=== PATIENT | female | born 1945 | race Caucasian/White ===

== ENCOUNTER → 2017-12-26 10:50 | Outpatient (CLI) | payer MEDICARE, SELFPAY ==
[2017-12-26 12:06] VITALS: PULSE 78; PULSE 79; PULSE 87; PULSE 89; PULSE 91; PULSE 92; PULSE 94; O2SAT 97; O2SAT 98; O2SAT 99
--- NOTE | 2017-12-26 14:36 | WT_ITS ---
PSN 6 Minute Walk Test - 6 Minute Walk Test 6 Minute Walk Test: 6 Minute Walk Test PSN:6-Minute Walk Test Start: 12/26/17 12: 06 Freq: Status: Active Protocol: [id number] Document 12/26/17 12:06 FR (Rec: 12/26/17 12:11 FR [id number]) 6 Minute Walk Test Date Performed 12/26/17 Time Performed 11:00 Height 5 ft 3 in Weight: 140 lb Weight in Pounds 140.[address]: Nithya Aldana Assistive device used: None Pre-test Oxygen Delivery Method Room Air Pulse Ox (%) 97 Pulse Rate (60-100 beats/min) 78 Dyspnea Arnoldo Scale (0-10) 0 Exertion Arnoldo Scale (6-20) 6 1st minute Oxygen Delivery Method Room Air Pulse Ox (%) 97 Pulse Rate (60-100 beats/min) 89 2nd minute Oxygen Delivery Method Room Air Pulse Ox (%) 97 Pulse Rate (60-100 beats/min) 89 3rd minute Oxygen Delivery Method Room Air Pulse Ox (%) 97 Pulse Rate (60-100 beats/min) 87 4th minute Oxygen Delivery Method Room Air Pulse Ox (%) 97 Pulse Rate (60-100 beats/min) 92 5th minute Oxygen Delivery Method Room Air Pulse Ox (%) 98 Pulse Rate (60-100 beats/min) 91 6th minute Oxygen Delivery Method Room Air Pulse Ox (%) 97 Pulse Rate (60-100 beats/min) 94 Dyspnea Arnoldo Scale (0-10) 0 Exertion Arnoldo Scale (6-20) 6 Post-test Oxygen Delivery Method Room Air Pulse Ox (%) 99 Pulse Rate (60-100 beats/min) 79 Full Laps Walked 20 Partial Lap, Number of Tiles Walked 15 Total Distance Walked (ft) 1195 - Interpretation Interpretation: The patient ambulated 1195 feet over the course of 6 minutes beginning on room air without assistive devices or breaks. Pretesting oxygen saturation was noted to be 97% on room air. With ambulation, the crystal oxygen saturation was 97%. There was no significant exertional oxygen desaturation. - Recommendations Recommendations: There is no indication for the use of supplemental oxygen at this time.
== END ==
PROVIDERS: Family Provider Family Medicine; PCP Family Medicine; Visit Provider Nurse Practitioner Acute Care
DX: R06.00 Dyspnea, unspecified (principal)
CPT/HCPCS: 94618

== ENCOUNTER → 2017-12-30 12:50 | Outpatient (CLI) | payer MEDICARE, SELFPAY ==
--- NOTE | 2017-12-30 16:37 | PFTCOMP ---
COMPLETE PULMONARY FUNCTION TEST INTERPRETATION Brief HPI: Patient is a 72 year old female, currently under the care of myself, who presents to [facility] for complete pulmonary function tests secondary to diagnosis of dyspnea. Respiratory therapist reports good effort and reproducible results. Interpretation: Forced expiration spirometry shows no large airways obstructive ventilatory defect with an FEV1 of 83% predicted. There is no significant bronchodilator response by ATS criteria. Spirograms are of good quality and plateau normally. The respiratory flow volume loop shows a normal pattern. Lung volumes by body plethysmography show a normal total lung capacity at 4.08 L, 89% predicted. All other lung volumes are within normal limits. Diffusion capacity by carbon monoxide is normal at 64% predicted. The airway resistance is elevated. Compared to previous pulmonary function tests from 11/20/2016, there has been a significant improvement in air-trapping with hyperinflation. Impression: These pulmonary function tests are grossly within normal limits and show improvement in air trapping compared to previous.
--- NOTE | 2017-12-30 16:44 | PFTCOMP_ITS ---
COMPLETE PULMONARY FUNCTION TEST INTERPRETATION Brief HPI: Patient is a 72 year old female, currently under the care of myself, who presents to [facility] for complete pulmonary function tests secondary to diagnosis of dyspnea. Respiratory therapist reports good effort and reproducible results. Interpretation: Forced expiration spirometry shows no large airways obstructive ventilatory defect with an FEV1 of 83% predicted. There is no significant bronchodilator response by ATS criteria. Spirograms are of good quality and plateau normally. The respiratory flow volume loop shows a normal pattern. Lung volumes by body plethysmography show a normal total lung capacity at 4.08 L , 89% predicted. All other lung volumes are within normal limits. Diffusion capacity by carbon monoxide is normal at 64% predicted. The airway resistance is elevated. Compared to previous pulmonary function tests from 11/20/2016, there has been a significant improvement in air-trapping with hyperinflation. Impression: These pulmonary function tests are grossly within normal limits and show improvement in air trapping compared to previous.
== END ==
PROVIDERS: Family Provider Family Medicine; PCP Family Medicine; Visit Provider Nurse Practitioner Acute Care
DX: R06.00 Dyspnea, unspecified (principal)
CPT/HCPCS: 94060; 94726; 94729

== ENCOUNTER → 2018-01-23 11:55 | Outpatient (CLI) | payer MEDICARE, SELFPAY ==
[2018-01-23 15:43] LABS: AST(SGOT) 19 U/L (15-37); Alanine Aminotransfer ALT/SGPT 19 U/L (13-56); Albumin, Serum 3.9 g/dL (3.2-5.0); Alkaline Phosphatase 130 U/L (45-117); Bilirubin, Direct 0.11 mg/dL (0.00-0.30); Cholesterol 192 mg/dL (200); High Density Lipoprotein 40 mg/dL; Protein, Total 7.9 g/dL (6.4-8.2); Triglycerides 228 mg/dL; Very Low Density Lipoprotein 46 mg/dL (5-40)
== END ==
PROVIDERS: Family Provider Family Medicine; PCP Family Medicine; Visit Provider Internal Medicine Cardiovascular Disease
DX: I25.810 Atherosclerosis of coronary artery bypass graft(s) without angina pectoris (principal); E78.2 Mixed hyperlipidemia; E78.5 Hyperlipidemia, unspecified; Z79.899 Other long term (current) drug therapy
CPT/HCPCS: 36415; 80061; 80076

== ENCOUNTER → 2019-02-09 | Outpatient (CLI) | payer MEDICARE, SELFPAY ==
[2019-02-09 15:32] VITALS: BMI 27.1
[2019-02-09 17:52] LABS: Absolute Lymphocyte Count 3.14 X10^3/uL (0.83-4.51); Absolute Neutrophil Count 4.4 X10^3/uL (2.0-7.7); Basophil# 0.03 X10^3/uL; Basophil% 0.4 % (0-1); Eosinophil# 0.11 X10^3/uL; Eosinophils% 1.4 % (0-5); Hematocrit 38.3 % (37-47); Hemoglobin 13.1 g/dL (12.0-15.0); Lymphocyte # 3.14 X10^3/ul (4.0); Lymphocyte % 38.9 % (19-41); Mean Corp Hgb Conc 34.2 g/dL (32-36); Mean Corpuscular Hgb 31.8 pg (27.0-32.0); Mean Platelet Vol. 10.1 fl (6.2-12.0); Monocyte# 0.39 X10^3/uL; Monocyte% 4.8 % (0-10); NRBC Flagged by Analyzer 0 % (0-5); Neutrophil % 54.4 % (47-70); Platelet Count 229 K/mm3 (150-450); RBC Distribution Width CV 12.6 % (11.6-14.6); RBC Distribution Width SD 42.8 fl (35.1-43.9); Red Blood Count 4.12 M/mm3 (4.2-5.4); White Blood Count 8.1 K/mm3 (4.4-11.0)
[2019-02-09 18:07] LABS: AST(SGOT) 17 U/L (15-37); Alanine Aminotransfer ALT/SGPT 16 U/L (13-56); Albumin, Serum 3.9 g/dL (3.2-5.0); Alkaline Phosphatase 124 U/L (45-117); Anion Gap 5 (5-15); BUN 11 mg/dL (7-18); BUN/Creat Ratio 11.7 RATIO (10-20); Bilirubin, Direct 0.15 mg/dL (0.00-0.30); Chloride 109 mmol/L (98-107); Cholesterol 151 mg/dL (200); Creatinine, Serum 0.94 mg/dL (0.55-1.02); EST Glomerular Filtration Rate 62 mL/min (>60); Est Glom Filt Rate - Afr Amer 76 mL/min (>60); Globulin 3.7 g/dL (2.2-4.2); Glucose 86 mg/dL (74-106); High Density Lipoprotein 36 mg/dL; Potassium 3.9 mmol/L (3.5-5.1); Protein, Total 7.6 g/dL (6.4-8.2); Sodium Level 140 mmol/L (136-145); Thyroid Stim Hormone (TSH) 2.18 uIU/mL (0.358-3.74); Triglycerides 185 mg/dL; Very Low Density Lipoprotein 37 mg/dL (5-40)
== END | disposition home or self-care (01) ==
LOC: LAB 15:44
PROVIDERS: Family Provider Family Medicine; PCP Family Medicine; Referring Provider Physician Assistant Medical; Visit Provider Physician Assistant Medical
DX: I25.810 Atherosclerosis of coronary artery bypass graft(s) without angina pectoris (principal); I25.5 Ischemic cardiomyopathy; I50.22 Chronic systolic (congestive) heart failure
CPT/HCPCS: 36415; 80048; 80061; 80076; 84443; 85025

== ENCOUNTER → 2020-05-10 09:15 | Outpatient (CLI) | payer MEDICARE, SELFPAY ==
[2020-05-10 08:45] VITALS: BMI 27.6
[2020-05-10 10:40] LABS: AST(SGOT) 19 U/L (15-37); Alanine Aminotransfer ALT/SGPT 18 U/L (13-56); Albumin, Serum 3.7 g/dL (3.2-5.0); Alkaline Phosphatase 122 U/L (45-117); Bilirubin, Direct 0.09 mg/dL (0.00-0.30); Cholesterol 148 mg/dL (200); Globulin 3.5 g/dL (2.2-4.2); High Density Lipoprotein 34 mg/dL; Protein, Total 7.2 g/dL (6.4-8.2); Triglycerides 170 mg/dL; Very Low Density Lipoprotein 34 mg/dL (5-40)
== END ==
PROVIDERS: PCP Family Medicine; Referring Provider Physician Assistant Medical; Visit Provider Physician Assistant Medical
DX: E78.5 Hyperlipidemia, unspecified (principal); E78.00 Pure hypercholesterolemia, unspecified
CPT/HCPCS: 36415; 80061; 80076

== ENCOUNTER → 2020-05-23 06:15 | Outpatient (CLI) | payer MEDICARE, SELFPAY ==
[2020-05-10 08:45] VITALS: BMI 27.6
--- NOTE | 2020-05-23 06:16 | ECHOD_ITS ---
Reason For Study: CAD Procedure This was a 2D Doppler, Color Flow transthoracic echocardiogram. Exam performed in department. Left Ventricle Normal LV size. The estimated ejection fraction is 40 %. Mild to moderate segmental systolic dysfunction (see wall motion). Stage 1 diastolic dysfunction. Anterio-Basal: Normal. Lateral-Basal: Normal. Posterior-Basal: Normal. Infero-Basal: Akinetic. Basal inferoseptal: Severely Hypokinetic. Basal anteroseptal: Mildly hypokinetic. Mid-Anterior : Hypokinetic. Mid-Lateral : Normal. Mid- Posterior: Hypokinetic. Mid-Inferior: Hypokinetic. Mid-inferoseptal : Mildly hypokinetic. Mid- anteroseptal : Hypokinetic. [place] : Akinetic. Right Ventricle Normal RV size. Normal systolic function. Atria Normal left atrium. Normal right atrium. Mitral Valve Normal mitral valve. Tricuspid Valve Normal tricuspid valve. Mild (1+) tricuspid valve insufficiency. Pulmonary artery systolic pressure is 28 mmHg. Aortic Valve Trisinus/trileaflet aortic valve. Mild focal aortic valve calcification. Pericardium/Pleural No pericardial effusion. MMode/2D Measurements & Calculations LVIDd: 4.8 cm IVSd: 0.99 cm Ao root diam: 2.8 cm LVIDs: 3.0 cm LVPWd: 1.1 cm RVDd: 2.7 cm FS: 36.4 % LAV(MOD-bp): 51.7 ml SV(MOD-sp4): 22.3 ml LVAd ap4: 24.4 cm2 LAV(MOD-bp) Indexed: 30.5 ml/m2 EDV(MOD-sp4): 68.3 ml LAV(MOD-sp2): 46.0 ml EDV(sp4-el): 70.5 ml LAV(MOD-sp4): 49.7 ml LVAs ap4: 19.0 cm2 ESV(MOD-sp4): 46.0 ml ESV(sp4-el): 48.0 ml EF(MOD-sp4): 32.6 % EF(sp4-el): 31.8 % SV(sp4-el): 22.4 ml LA dimension(2D): 3.9 cm LA A4 area: 18.4 cm2 RA A4 area: 14.8 cm2 Doppler Measurements & Calculations MV E max jatinder: 75.1 cm/sec Lat Peak E' Jatinder: 7.7 cm/sec Med Peak E' Jatinder: 4.3 cm/sec MV A max jatinder: 86.9 cm/sec E/E' lat: 9.8 E/E' med: 17.6 MV E/A: 0.86 Ao V2 max: 155.5 cm/sec LV V1 max: 106.2 cm/sec PA V2 max: 115.4 cm/sec Ao max P.7 mmHg LV V1 max P.5 mmHg TR max jatinder: 242.9 cm/sec TR max P.0 mmHg Interpretation Summary Normal LV size. The estimated ejection fraction is 40 %. Mild to moderate segmental systolic dysfunction (see wall motion). Stage 1 diastolic dysfunction. Compared to previous study, the left ventricular systolic function has improved.. Ordering Physician: Savanah Jade/Yuniel Tsai Referring Physician: Hoang Marquez M.D. Performed By: Criss Cloud RDCS
--- NOTE | 2020-05-23 15:36 | STRESSREP ---
Stress Test Report Pharmacologic myocardial perfusion stress test. 74-year-old lady with a history of coronary artery bypass surgery with a VERNON to the LAD saphenous vein graft to the right coronary artery and saphenous vein graft to circumflex artery. Stress protocol: Resting EKG demonstrates normal sinus rhythm with a rate of 60 bpm normal intervals are noted resting blood pressure is 150/72 mmHg. 0.4 mg of regadenoson was infused per usual protocol followed by rapid intravenous saline flush injection continuous EKG monitoring was performed. Patient maintained sinus rhythm throughout the recording. At rest nonspecific ST-T wave changes were noted with no meet the criteria for ischemia. The resting blood pressure was 150/72 with a peak blood pressure being the same. No clinical angina was noted. Myocardial perfusion protocol. 10.8 mCi of technetium 99m sestamibi was injected at rest. 0.4 mg of regadenoson was infused per usual protocol. At peak infusion 32.5 mCi of technetium 99m sestamibi was injected stress images were obtained stress and rest images were reconstructed and compared in the short axis vertical long horizontal long axis. Gated images were not obtained Perfusion SPECT analysis: Review of the stress images demonstrate a normal cardiac silhouette size. There is a defect noted involving the distal septum and apex as well as the distal lateral wall. This is present on the stress and rest images to a similar extent. There is moderate reduction noted in the mid inferior wall on the stress images with mild improvement on the resting images suggesting a mild amount of inferior ischemia. Conclusion: Mildly abnormal pharmacologic myocardial perfusion stress test with evidence of mid inferior ischemia. Previous distal apical, septum and apical lateral infarct noted.
== END ==
PROVIDERS: PCP Family Medicine; Referring Provider Physician Assistant Medical; Visit Provider Physician Assistant Medical
DX: Z01.810 Encounter for preprocedural cardiovascular examination (principal); Z95.1 Presence of aortocoronary bypass graft
CPT/HCPCS: 78452; 93017; 93306; A9500; A4216; J2785

== ENCOUNTER 2020-06-27 07:51 | Day surgery (SDC) | payer MEDICARE, SELFPAY ==
[2020-05-10 08:45] VITALS: BMI 27.6
--- NOTE | 2020-05-31 12:03 | RAD_ITS ---
HISTORY: Heart cath coming up , abnormal stress test with CP ADDITIONAL HISTORY: None provided. COMPARISON: 09/27/2016 EXAMINATION/TECHNIQUE: XR Chest 2 Views Number of images including paperwork: 2 FINDINGS: LUNGS AND PLEURA: No consolidation, mass or pleural effusion. CARDIAC SILHOUETTE: Unremarkable. MEDIASTINUM AND DUANE: Aortic calcification and tortuosity. UPPER ABDOMEN: Unremarkable. SKELETON AND SOFT TISSUES: No acute findings. Degenerative changes. OTHER DEVICES AND HARDWARE: Biventricular ICD a left-sided generator. Sternal wires and surgical clips. RAD/Chest PA and Lateral IMPRESSION: No acute cardiopulmonary abnormality. at 0411 Reported and signed by: Anna Alarcon MD Electronically Signed: Anna Alarcon MD at 4:11 EST Tel , Service support ,
[2020-05-31 12:31] LABS: Absolute Lymphocyte Count 2.98 X10^3/uL (0.83-4.51); Absolute Neutrophil Count 4.3 X10^3/uL (2.0-7.7); Basophil# 0.03 X10^3/uL; Basophil% 0.4 % (0-1); Eosinophil# 0.13 X10^3/uL; Eosinophils% 1.7 % (0-5); Hematocrit 39.8 % (37-47); Hemoglobin 13.8 g/dL (12.0-15.0); Lymphocyte # 2.98 X10^3/ul (4.0); Lymphocyte % 38.3 % (19-41); Mean Corp Hgb Conc 34.7 g/dL (32-36); Mean Corpuscular Hgb 31.4 pg (27.0-32.0); Mean Corpuscular Volume 90.5 fL (81-99); Mean Platelet Vol. 10.5 fl (6.2-12.0); Monocyte# 0.33 X10^3/uL; Monocyte% 4.2 % (0-10); NRBC Flagged by Analyzer 0 % (0-5); Neutrophil % 55.3 % (47-70); Platelet Count 247 K/mm3 (150-450); RBC Distribution Width CV 12.5 % (11.6-14.6); RBC Distribution Width SD 41.4 fl (35.1-43.9); White Blood Count 7.8 K/mm3 (4.4-11.0)
[2020-05-31 12:40] LABS: International Normalized Ratio 1.1; Prothrombin Time (Protime)PT. 13.2 SECONDS (11.7-14.9)
[2020-05-31 12:58] LABS: Anion Gap 7 (5-15); BUN 11 mg/dL (7-18); BUN/Creat Ratio 13.2 RATIO (10-20); Chloride 108 mmol/L (98-107); Creatinine, Serum 0.84 mg/dL (0.55-1.02); EST Glomerular Filtration Rate 71 mL/min (>60); Est Glom Filt Rate - Afr Amer 86 mL/min (>60); Glucose 99 mg/dL (74-106); Potassium 3.4 mmol/L (3.5-5.1); Sodium Level 142 mmol/L (136-145)
--- NOTE | 2020-06-01 07:33 | HP_ITS ---
[facility] History of Present Illness Details: ANA JIMENEZ, is a 74 F who presents to the office today for a cardiovascular outpatient follow-up. Patient has a history of coronary artery disease status post bypass surgery in 1996 with an VERNON to the LAD, SVG to RCA, and SVG to LCx. She had subsequent angioplasty and stenting to proximal and distal RCA in 2011. She also has a history of ischemic cardiomyopathy, status post biventricular ICD implantation, hyperlipidemia, and tobacco abuse. From a cardiac standpoint, patient is doing well. She does not have any chest discomfort/heaviness/tightness. She does not have any worsening symptoms of shortness of breath. She does not have any orthopnea. She denies PND. She does not have any symptoms of congestive heart failure. She does not have any palpitations that she is aware of. She does not have any lightheadedness or dizziness. She does not have any near-syncope or syncope. She does not have any lower extremity edema. She does not have any symptoms of claudication. Pt did have cataract surgery. Intake Vital Signs 05/10/20 Height 5 ft 2 in 05/10/20 Weight: 151 lb 05/10/20 BMI 27.6 05/10/20 BP 140/70 H 05/10/20 Pulse 60 Intake Visit Reasons: 6 M FU Allergies No Known Allergies Allergy (Verified 05/10/20 08:45) Medications Aspirin [Aspirin, Baby] 81 mg PO DAILY@0800 09/27/16 [History Confirmed 05/10/20] loratadine 10 mg capsule 10 mg PO DAILY 07/25/18 [History Confirmed 05/10/20] nitroglycerin 0.4 mg sublingual tablet 0.4 mg SUBLINGUAL Q5-15M PRN #25 tab 08/27/19 [Rx Confirmed 05/10/20] atorvastatin 80 mg tablet 80 mg PO QHS #90 tab 05/10/20 [Rx Confirmed 05/10/20] carvedilol 12.5 mg tablet 12.5 mg PO BID #180 tab 05/10/20 [Rx Confirmed 05/10/20] clopidogrel 75 mg tablet 75 mg PO DAILY #90 tab 05/10/20 [Rx Confirmed 05/10/20] furosemide 40 mg tablet 40 mg PO QAM #90 tab 05/10/20 [Rx Confirmed 05/10/20] lisinopril 20 mg tablet 20 mg PO BID #180 tab 05/10/20 [Rx Confirmed 05/10/20] [facility] Medical History Ischemic cardiomyopathy (Chronic) Nonrheumatic tricuspid (valve) insufficiency (Chronic) Nonrheumatic aortic (valve) stenosis (Chronic) Chronic systolic congestive heart failure (Chronic) Presence of cardiac defibrillator (Chronic) Atherosclerosis of coronary artery 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 (Chronic) Long-term use of high-risk medication (Chronic) Syncope and collapse (Resolved) Hyperlipemia (Chronic) HTN (hypertension) (Chronic) Atrioventricular block (Chronic) Bronchiectasis (Chronic) Ischemic cardiomyopathy (Chronic) Old myocardial infarction (Chronic) Tobacco abuse (Chronic) AV block (Inactive) Atherosclerotic heart disease of [place] coronary artery without angina pectoris (Inactive) Bronchiectasis (Inactive) CHF (congestive heart failure) (Inactive) History of sinus bradycardia (Inactive) History of syncope (Inactive) Hx of myocardial infarction (Inactive) Hypercholesteremia (Inactive) Hypokalemia (Inactive) Ischemic cardiomyopathy (Inactive) 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) Nonrheumatic aortic (valve) stenosis (Inactive) Nonrheumatic mitral (valve) prolapse (Inactive) Psoriasis (Inactive) Surgical History Aortocoronary bypass status (Chronic ~1996) PCD and drug-eluting stents to prox RCA, distal RCA (Resolved ~03/06/12) Cardiac defibrillator in place (Chronic ~03/07/12) H/O tubal ligation (Resolved) History of left heart catheterization (Resolved) Postsurgical percutaneous transluminal coronary angioplasty (PTCA) status (Resolved ~03/06/12) CABG VERNON graft LAD (Inactive) Hx of CABG (Inactive) Saphenous vein graft to CFX (Inactive) saphenous vein graft to RCA (Inactive) Family History Father CAD (coronary artery disease) Myocardial infarction Brother CAD (coronary artery disease) Myocardial infarction Mother Cancer Social History (Updated 05/10/20 @ 09:35 by Savanah LOCKWOOD, PA) Smoking Status: Current every day smoker second hand exposure: Yes alcohol intake: never substance use type: does not use caffeine: Yes Type: carbonated beverages what type of physical activity do you participate in: none seatbelt use: always do you feel safe at home: Yes ROS Const Const: Positive for fatigue; negative for weakness, fever(s) or headache(s) Eyes Eyes: Negative for blind spots, loss of peripheral vision or transient loss of vision ENT ENT: Negative for headache(s), dizziness, tinnitus or Nosebleed/epistaxis Cardio Chest Pain: No Palpitations: No Edema: None Muscle aches with walking: None Resp Respiratory: Negative for SOB with activity, SOB at rest, SOB orthopnea\SOB lying down or Cough GI GI: Negative nausea, vomiting, heartburn or vomiting blood/hematemesis : Negative for hematuria Musc Musc: Positive for muscle aches/ myalgia Neuro Neuro: Negative for dizziness, lightheadedness, near syncope, syncope, orthostatic symptoms, headache(s) or weakness Eric Hematologic/Lymphatic: Negative for easy bleeding Endo Endo: Positive for fatigue Cardiology Exam Const Appearance: cooperative, healthy appearing, comfortable and no acute distress Orientation: alert, awake and oriented x3 Head Head: normal to inspection Mouth: oral mucosae normal Teeth and gingiva: poor dentition Neck Neck: normal visual inspection and no JVD Carotids: normal carotid upstroke Chest Chest inspection: normal inspection of the chest, Pacemaker/ICD Yes left pectoral incision and normal respiratory effort Auscultation: Bilateral: Clear to Auscultation Cardio Rate: regular rate Rhythm: regular rhythm Heart sounds: S2 normal and murmur (LLSB systolic); negative rub or gallop Murmur: Grade 2/6 GI GI: normal to inspection Neuro General: alert, awake, oriented x3 and CN's II-XI intact bilaterally Skin Skin: no rashes or lesions noted Extremities Pulses: Normal: Right Radial Pulse, Left Radial Pulse, Diminished: Right Posterior Tibial Pulse, Left Posterior Tibial Pulse Lower Extremity Edema: None: Bilateral Psych Psychological: normal affect Assessment & Plan 1. Atherosclerosis of coronary artery bypass graft of [place] heart without angina pectoris I25.810 CABG x3 VERNON to LAD, SVG to RCA, SVG to LCX 1996; PTCA/ROBERTO to prox and distal RCA 03/06/12 Plan Stable, from a cardiac standpoint patient does not have any symptoms of angina. We recommend that they continue with current aggressive medical management and risk factor modification. It has been greater than 4 years since her last stress test, would like to re- evaluate this with a stress test. This will need to be a lexiscan due to her ICD. 2. Ischemic cardiomyopathy I25.5 S/P BI-V ICD; Plan Patient does not have any symptoms of congestive heart failure. Patient will continue with aggressive medical management. It has been greater than 4 years since she had this checked, would like to obtain and echo to re-evaluate and to see if we could optimize medications. 3. Essential hypertension I10 Plan Controlled on current medications, will not make any adjustments at this time. 4. Mixed hyperlipidemia E78.2 Plan Patient is overdue to have her lipids checked. It is okay to get nonfasting blood work today. Will adjust medications accordingly. 5. Presence of cardiac defibrillator Z95.810 Implanted @ [facility] 03/07/2012; Plan ICD is functioning appropriately. Pt has not had any discharges from their device, they will continue with regular scheduled ICD interrogations. 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 transplanted heart: [place] heart Ischemic cardiomyopathy I25.5 Essential hypertension I10 ??Hypertension type: essential hypertension Mixed hyperlipidemia E78.2 ??Hyperlipidemia type: mixed hyperlipidemia Presence of cardiac defibrillator Z95.810 Coding Level of Care Code Off vis,est,level 3 Diagnoses Atherosclerosis of coronary artery bypass graft of [place] heart without angina pectoris I25.810 ??[place] vs. transplanted heart: [place] heart Ischemic cardiomyopathy I25.5 Essential hypertension I10 ??Hypertension type: essential hypertension Mixed hyperlipidemia E78.2 ??Hyperlipidemia type: mixed hyperlipidemia Presence of cardiac defibrillator Z95.810 Supplemental Info Supplemental Information Echocardiogram from 07/13/15: Interpretation Summary Normal LV size. The estimated ejection fraction is 25 %. Moderately severe segmental systolic dysfunction (see wall motion). Mild (1+) tricuspid valve insufficiency. Bi-VICD evaluation from 03/11/18: Showed no VT/VF episodes and no MS episodes since last check on 08/16/2017. Presenting rhythm of AAI pacing at 60 ppm. Bi-Vpaced=45%, AP=95%, and estimated battery life of 2.4 years. Nuclear Stress test from 01/06/16: CONCLUSION: 1. Ischemic cardiomyopathy. 2. Pharmacologic myocardial perfusion stress test with no evidence of ischemia. 3. Previous anteroseptal, basal inferior, inferolateral infarct noted. No ischemia present. Labs LDL Cholesterol Pending 05/10/20 HDL Cholesterol Pending 05/10/20 Triglycerides Pending 05/10/20 VLDL Cholesterol Pending 05/10/20 Diagnostics Pacemaker Check 12/14/19
[2020-06-01 09:34] VITALS: BMI 27.6
--- NOTE | 2020-06-27 12:37 | CL.D_ITS ---
Patient Name: ANA JIMENEZ Study Date: 06/27/2020 Performing: Yuniel Tsai MD Ht: 61.81 inches 157 cm : 1945 Wt: 149.91 lbs 68 kg Age: 74 Gender: female BSA: 1.69 PROCEDURE(S) PERFORMED [id number]/COR/LV/CABG CLINICAL PROFILE AND INDICATIONS Indications: Other Heart Failure: NYHA Class: 2, Newly Diagnosed: No, Heart Failure Type: Systolic Stress/Imaging Date: 05/21/2020Stress Test with SPECT MPI: Positive Intermediate Risk CONCLUSIONS Known triple-vessel coronary artery disease with 2 out of 3 grafts occluded but patency of the [place] circumflex and right coronary artery system, and patent VERNON to the LAD. Left ventricular systolic dysfunction present. Implantable defibrillator present. We will continue medical therapy based on t he above. RECOMMENDATIONS Medical therapy DESCRIPTION OF PROCEDURE The patient arrived to the procedure lab. The risks and benefits of the procedure as well as a full d escription of our services here and current unavailability of surgical backup were fully explained to the patient and/or their significant other prior to the catheterization. The Timeout was completed, verifying the correct patient and procedure. The patient's procedural site was prepped and draped in the usual fashion. Local anesthetic was given subcutaneously to left radial region with Lidocaine 2%. Using a modified Seldinger technique, arterial access was obtained via the left femoral artery, a 6F r sheath was inserted. Left internal mammary artery graft to the LAD selective angiography was perfo rmed in multiple views using a 5 Fr. IM catheter. Left Coronary Artery selective angiography was perf ormed in multiple views using a 5 Fr. JL3.5 catheter. Right Coronary Artery selective angiography was then performed in multiple views using a 5 Fr. JR 4 catheter. Left Ventriculography was performed in VALENZUELA projection using a 5 Fr. Pigtail catheter. LV to AO pullback pressures were then rec orded.The arterial sheath was pulled and a TR Band was applied for hemostasis CORONARY ANGIOGRAPHY DOMINANCE: Right Dominant LEFT HEART ASSESSMENT Left Ventricular Ejection Fraction: by LV Gram 40 % Global Hypokinesis - Moderate Depressed Left Ventricular systolic function LEFT MAIN: Mild calcification, No significant disease noted LEFT ANTERIOR DESCENDING ARTERY: MID LAD: is occluded CIRCUMFLEX ARTERY: Mild luminal irregularities less than 30% RIGHT CORONARY ARTERY: Moderate luminal irregularities up to 50% GRAFTS: VERNON graft to the Mid LAD is patent Saphenous Vein graft to the RCA is totally occluded Saphenous Vein graft to the CIRC is totally occluded COMPLICATIONS No Complications PROCEDURE MEDICATIONS Versed 1 mg IV Fentanyl 50 mcg IV Oxygen: 2 L/min via nasal cannula Heparin given IA 06/27/2020 12:03:24 Verapamil 2.5mg, Ntg 100mcgs, 2000 units of Heparin given IA 06/27/2020 12:03:24 SUMMARY OF HEMODYNAMIC DATA Time AIR REST ECG 08:42:04 AO 98/58 (74) SA 12:03:21 LV 145/11, 19 12:13:45 LV 147/11, 20 12:13:52 LV 127/10, 23 12:15:15 LV 123/9, 21 12:15:21 LVp 133/11, 24 12:15:34 AOp 136/61 (89) 12:15:39 Signed By Yuniel Tsai MD On 06/27/2020 12:36:13 Yuniel Tsai MD
== END 2020-06-27 14:00 | disposition home or self-care (01) ==
LOC: CLSP 07:52
PROVIDERS: Physician Assistant Medical; PCP Family Medicine; Referring Provider Internal Medicine Cardiovascular Disease; Visit Provider Internal Medicine Cardiovascular Disease
DX: I25.810 Atherosclerosis of coronary artery bypass graft(s) without angina pectoris (principal); I25.5 Ischemic cardiomyopathy; I11.0 Hypertensive heart disease with heart failure; I50.22 Chronic systolic (congestive) heart failure; I35.0 Nonrheumatic aortic (valve) stenosis; I25.2 Old myocardial infarction; E78.2 Mixed hyperlipidemia; Z79.82 Long term (current) use of aspirin; Z79.02 Long term (current) use of antithrombotics/antiplatelets; Z79.899 Other long term (current) drug therapy; F17.200 Nicotine dependence, unspecified, uncomplicated
CPT/HCPCS: 36415; 71046; 80048; 85025; 85610; 93459; 99152; 99153; C1894; J7040; Q9967; C1769

== ENCOUNTER → 2020-07-28 09:22 | Outpatient (CLI) | payer MEDICARE, SELFPAY ==
[2020-07-19 14:14] VITALS: BMI 25.9
== END ==
PROVIDERS: PCP Family Medicine; Referring Provider Nurse Practitioner Family; Visit Provider Nurse Practitioner Family
DX: Z20.822 Contact with and (suspected) exposure to COVID-19 (principal)
CPT/HCPCS: 87635; C9803; U0005; U0003

== ENCOUNTER 2020-08-04 09:28 | Day surgery (SDC) | payer MEDICARE, SELFPAY ==
[2020-06-01 09:34] VITALS: BMI 27.6
[2020-07-19 14:14] VITALS: BMI 25.9
[2020-07-19 14:54] LABS: Mucous, Urine 0 SEEN /hpf (<or=2+); Red Blood Cells-Urine 0 SEEN /hpf (0-5)
[2020-07-19 16:39] LABS: Color, Urine Yellow (Yellow); Glucose, Dipstick Normal (Normal); Ketone-Dipstick Negative (Negative); Leukocyte Esterase-Dipstick 500 /ul (Negative); Nitrite-Dipstick Negative (Negative); Occult Blood-Urine 50 /ul (Negative); Protein-Dipstick Negative (Negative); Specific Gravity, Urine 1.015 (1.002-1.030); Urine Bilirubin Dipstick Negative (Negative); Urine Clarity Sl. Cloudy (Clear); Urine Urobilinogen Normal (Normal)
[2020-07-19 16:40] LABS: Hematocrit 38.6 % (37-47); Hemoglobin 13.1 g/dL (12.0-15.0); Mean Corp Hgb Conc 33.9 g/dL (32-36); Mean Corpuscular Hgb 30.8 pg (27.0-32.0); Mean Corpuscular Volume 90.6 fL (81-99); Mean Platelet Vol. 10.7 fl (6.2-12.0); Platelet Count 267 K/mm3 (150-450); RBC Distribution Width CV 13.2 % (11.6-14.6); RBC Distribution Width SD 43.5 fl (35.1-43.9); Red Blood Count 4.26 M/mm3 (4.2-5.4); White Blood Count 7.3 K/mm3 (4.4-11.0)
[2020-07-19 16:45] LABS: Bacteria 2+ /hpf (None Seen); Hyaline Cast 0-5 SEEN /lpf (0-5); Squamous Epithelial Cells - UA 10-25 SEEN /hpf (5-10); White Blood Cells 10-25 SEEN /hpf (0-5)
[2020-07-19 16:47] LABS: International Normalized Ratio 1.1; Prothrombin Time (Protime)PT. 13.6 SECONDS (11.7-14.9)
[2020-07-19 17:11] LABS: Anion Gap 6 (5-15); BUN 7 mg/dL (7-18); BUN/Creat Ratio 6.7 RATIO (10-20); Calcium,Total 8.8 mg/dL (8.5-10.1); Chloride 109 mmol/L (98-107); Creatinine, Serum 1.05 mg/dL (0.55-1.02); EST Glomerular Filtration Rate 55 mL/min (>60); Est Glom Filt Rate - Afr Amer 66 mL/min (>60); Glucose 98 mg/dL (74-106); Potassium 3.4 mmol/L (3.5-5.1); Sodium Level 142 mmol/L (136-145)
[2020-08-03 09:50] VITALS: BMI 25.9
--- NOTE | 2020-08-04 06:00 | HP_ITS ---
HPI HPI History of Present Illness Surgical H&P: Yes Details: ANA JIMENEZ, is a 74 F who presents to the office today for a cardiovascular outpatient follow-up. She has a history of coronary artery disease status post bypass surgery in 1996 with an VERNON to the LAD, SVG to RCA, and SVG to LCx. She had subsequent angioplasty and stenting to proximal and distal RCA in 2011. She also has a history of ischemic cardiomyopathy, status post biventricular ICD implantation, hyperlipidemia, and tobacco abuse. Due to device achieving JUNITO, she will undergo generator change with Dr. Cosme on 08/04/2020. She denies chest, arm, jaw, or neck discomfort. Her exercise tolerance is stable. She denies symptoms of palpitations, lightheadedness, dizziness, near syncope, or syncopal episodes. She denies edema or claudication issues. She denies orthopnea, PND, fever, chills, blood in urine, blood in stool, epistaxis, myalgia, or unexplainable fatigue. She denies urinary symptoms. She states intermittent periods of SOB with activity, most noted when going up steps. 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: No Accompanied by: None Is patient in pain?: No Allergies No Known Allergies Allergy (Verified 07/19/20 13:51) Medications Aspirin [Aspirin, Baby] 81 mg PO DAILY@0800 09/27/16 [History Confirmed 07/19/20] loratadine 10 mg capsule 10 mg PO DAILY 07/25/18 [History Confirmed 07/19/20] nitroglycerin 0.4 mg sublingual tablet 0.4 mg SUBLINGUAL Q5-15M PRN #25 tab 08/27/19 [Rx Confirmed 07/19/20] atorvastatin 80 mg tablet 80 mg PO QHS #90 tab 05/10/20 [Rx Confirmed 07/19/20] carvedilol 12.5 mg tablet 12.5 mg PO BID #180 tab 05/10/20 [Rx Confirmed 07/19/20] clopidogrel 75 mg tablet 75 mg PO DAILY #90 tab 05/10/20 [Rx Confirmed 07/19/20] furosemide 40 mg tablet 40 mg PO QAM #90 tab 05/10/20 [Rx Confirmed 07/19/20] lisinopril 20 mg tablet 20 mg PO BID #180 tab 05/10/20 [Rx Confirmed 07/19/20] potassium chloride 10 mEq capsule,extended release 10 meq PO DAILY #90 cap 07/19/20 [Rx Confirmed 07/19/20] [facility] Medical History (Updated 07/19/20 @ 14:52 by Hira Nemwan SENIOR JAVA PROGRAMMER, SENIOR JAVA PROGRAMMER-C) Atherosclerosis of coronary artery 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 (Chronic) 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) Ischemic cardiomyopathy (Chronic) Chronic systolic congestive heart failure (Chronic) Essential (primary) hypertension (Chronic) Hyperlipemia (Chronic) Nicotine dependence (Chronic) Bronchiectasis (Chronic) Atrioventricular block (Chronic) Ischemic cardiomyopathy (Chronic) Old myocardial infarction (Chronic) Tobacco abuse (Chronic) Syncope and collapse (Resolved) AV block (Inactive) Atherosclerotic heart disease of [place] coronary artery without angina pectoris (Inactive) Bronchiectasis (Inactive) CHF (congestive heart failure) (Inactive) History of sinus bradycardia (Inactive) History of syncope (Inactive) Hx of myocardial infarction (Inactive) Hypercholesteremia (Inactive) Hypokalemia (Inactive) Ischemic cardiomyopathy (Inactive) 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) Nonrheumatic aortic (valve) stenosis (Inactive) Nonrheumatic aortic (valve) stenosis (Inactive) Nonrheumatic mitral (valve) prolapse (Inactive) Nonrheumatic tricuspid (valve) insufficiency (Inactive) Psoriasis (Inactive) Surgical History (Updated 06/27/20 @ 13:54 by Shahla Contreras) H/O coronary artery bypass surgery (Resolved 04/28/97) History of coronary artery stent placement (Resolved 03/06/12) Biventricular ICD (implantable cardioverter-defibrillator) in place (Chronic 03/07/12) H/O tubal ligation (Resolved) History of electrophysiologic study (Resolved 03/07/12) History of left heart catheterization (Resolved 06/27/20) CABG VERNON graft LAD (Inactive) Hx of CABG (Inactive) Saphenous vein graft to CFX (Inactive) saphenous vein graft to RCA (Inactive) Family History Father CAD (coronary artery disease) Myocardial infarction Brother CAD (coronary artery disease) Myocardial infarction Mother Cancer Social History (Updated 07/19/20 @ 14:53 by Hira Newman SENIOR JAVA PROGRAMMER, SENIOR JAVA PROGRAMMER-C) Smoking Status: Current every day smoker second hand exposure: Yes alcohol intake: never substance use type: does not use caffeine: Yes Type: carbonated beverages what type of physical activity do you participate in: none seatbelt use: always do you feel safe at home: Yes ROS Const Const: Negative for fatigue, weakness, body ache, fever(s) or chills ENT ENT: Negative for dizziness Cardio Chest Pain: No Palpitations: No Edema: None Muscle aches with walking: None Resp Respiratory: Positive for SOB with activity; negative for SOB at rest, SOB orthopnea\SOB lying down or paroxysmal nocturnal dyspnea GI GI: Negative nausea, vomiting blood/hematemesis, bright, red blood in stools or black,tarry stools : Negative for hematuria or frequent nighttime urination/ nocturia Musc Musc: Negative for muscle aches/ myalgia Skin Skin: Negative non-healing lesions or rash Neuro Neuro: Negative for dizziness, lightheadedness, near syncope, syncope, orthostatic symptoms or weakness Endo Endo: Negative for fatigue Allergy Allergy/Immunology: Negative for rash Cardiology Exam Const Appearance: cooperative, healthy appearing, comfortable and no acute distress Nutritional Appearance: average body habitus and well nourished Orientation: alert, awake and oriented x3 Head Head: normal to inspection Ears: hearing grossly normal bilaterally Nose: external nose normal Face and Sinus: face symmetric Mouth: oral mucosae normal Eyes General: appearance normal, both eyes and all related structures Eyelids: eyelids normal EOM: EOM intact bilaterally Neck Neck: normal visual inspection and no JVD Carotids: normal carotid upstroke Chest Chest inspection: normal inspection of the chest, symmetric chest movement and normal respiratory effort; negative cough Auscultation: Bilateral: Clear to Auscultation Cardio Rate: regular rate Rhythm: regular rhythm Heart sounds: S1 normal, S2 normal and murmur; negative rub or gallop Murmur: Grade 1/6, soft and LLSB GI GI: normal to inspection Neuro General: alert, awake, oriented x3 and CN's II-XI intact bilaterally Skin Skin: no rashes or lesions noted Extremities Pulses: Normal: Right Posterior Tibial Pulse, Left Posterior Tibial Pulse, Right Radial Pulse, Left Radial Pulse Lower Extremity Edema: None: Bilateral Psych Psychological: normal affect Assessment & Plan 1. Atherosclerosis of coronary artery bypass graft of [place] heart without angina pectoris I25.810 Plan Her most recent heart catheterization on 06/27/2020 showed known triple-vessel coronary artery disease with 2 out of 3 grafts occluded but patency of the inaja circumflex and right coronary artery system, and patent VERNON to the LAD. Left ventricular systolic dysfunction present. Medical management was recommended. Patient denies any chest pain, arm pain, jaw pain, neck pain, new or worsening shortness of breath, or fatigue suggestive of angina at this time. We will continue to monitor. We will not make any medication regimen changes and will continue risk factor modification. Her EKG today in office shows sinus rhythm with first-degree AV block at a rate of 63 bpm, MN interval 228, QTc 391, and QRS 84. 2. H/O coronary artery bypass surgery Z95.1 CABG x3 VERNON to LAD, SVG to RCA, SVG to LCX 04/28/1997 Plan She will continue current medical therapy. 3. History of coronary artery stent placement Z95.5 [id number] RCA w/ 2.25 x 8 mm Promus Element Stent and ROBERTO-Prox RCA w/ 2.25 x 16 mm Promus Element Stent 03/06/2012 Plan She will continue risk factor and lifestyle modification. 4. Ischemic cardiomyopathy I25.5 Plan Her most recent echocardiogram on 05/23/2020 showed ejection fraction of 40% stage I diastolic dysfunction. She appears to be [place] Heart Association functional class II today. She does not appear to be in overt fluid volume overload state. It was discussed regards to medication adjustment such as increasing Coreg. However, since she she is doing symptomatically well, it was decided to continue current medical therapy as is. Over time, we can consider increasing Coreg therapy or adjusting lisinopril to Entresto therapy based on patient's overall progress. She will continue current diuretic. 5. Biventricular ICD (implantable cardioverter-defibrillator) in place Z95.810 Implanted @ [facility] 03/07/2012; Plan Patient's most recent CUTTING MACHINE TENDER DECORATIVE?D evaluation from 06/14/2020 showed no VT/VF episodes and no mode switch episodes since last check on 12/14/2019. Biventricular paced 53%. Atrial paced 95%. Battery life 4.3 months. Pacemaker evaluation prior to office visit showed atrial paced 95%, biventricular paced 53%, no mode switch episode, no VT/VF episodes. Her device is programmed for least amount of ventricular pacing. She will proceed with generator change with Dr. Cosme. 6. Essential hypertension I10 Plan Patient's blood pressure is well-controlled. We will continue to monitor. We will not make any medication regimen changes. 7. Mixed hyperlipidemia E78.2 Plan She continue current high-dose statin medication. 8. Cigarette nicotine dependence without complication F17.210 Plan Patient continues to smoke. She received extensive education regarding the health benefits of smoking cessation. We will continue to support and encourage smoking cessation. Plan Detail Other Orders Orders: COVID 19, PCR SENDOUT Today Z20.822 Other Medications Refilled: potassium chloride ER 10 mEq PO DAILY 90 caps 3RF Additional Comments Thank you for allowing us to participate in the patients plan of care, if you have any questions please do not hesitate to call. This note was generated using a voice recognition system and there may be incorrect words, spelling or punctuation that were not noted when reviewing the office note prior to saving. Coding Level of Care Code Off vis,est,level 3 Diagnoses Atherosclerosis of coronary artery bypass graft of [place] heart without angina pectoris I25.810 ??[place] vs. transplanted heart: [place] heart H/O coronary artery bypass surgery Z95.1 History of coronary artery stent placement Z95.5 Ischemic cardiomyopathy I25.5 Biventricular ICD (implantable cardioverter-defibrillator) in place Z95.810 Essential hypertension I10 Mixed hyperlipidemia E78.2 ??Hyperlipidemia type: mixed hyperlipidemia Cigarette nicotine dependence without complication F17.210 ??Nicotine product type: cigarettes ??Substance use status: uncomplicated Coding Level of Care Code Off vis,est,level 3 Diagnoses Atherosclerosis of coronary artery bypass graft of [place] heart without angina pectoris I25.810 ??[place] vs. transplanted heart: [place] heart H/O coronary artery bypass surgery Z95.1 History of coronary artery stent placement Z95.5 Ischemic cardiomyopathy I25.5 Biventricular ICD (implantable cardioverter-defibrillator) in place Z95.810 Essential hypertension I10 Mixed hyperlipidemia E78.2 ??Hyperlipidemia type: mixed hyperlipidemia Cigarette nicotine dependence without complication F17.210 ??Nicotine product type: cigarettes ??Substance use status: uncomplicated Supplemental Info Supplemental Information Echocardiogram from 05/23/2020: Interpretation Summary Normal LV size. The estimated ejection fraction is 40 %. Mild to moderate segmental systolic dysfunction (see wall motion). Stage 1 diastolic dysfunction. Compared to previous study, the left ventricular systolic function has improved. Echocardiogram from 07/13/15: Interpretation Summary Normal LV size. The estimated ejection fraction is 25 %. Moderately severe segmental systolic dysfunction (see wall motion). Mild (1+) tricuspid valve insufficiency. Bi-VICD evaluation from 03/11/18: Showed no VT/VF episodes and no MS episodes since last check on 08/16/2017. Presenting rhythm of AAI pacing at 60 ppm. Bi-Vpaced=45%, AP=95%, and estimated battery life of 2.4 years. Stress test from 05/23/2020: Interpretation Summary Normal LV size. The estimated ejection fraction is 40 %. Mild to moderate segmental systolic dysfunction (see wall motion). Stage 1 diastolic dysfunction. Compared to previous study, the left ventricular systolic function has improved.. Nuclear Stress test from 01/06/16: CONCLUSION: 1. Ischemic cardiomyopathy. 2. Pharmacologic myocardial perfusion stress test with no evidence of ischemia. 3. Previous anteroseptal, basal inferior, inferolateral infarct noted. No ischemia present. Cardiac catheterization from 06/27/2020: CONCLUSIONS Known triple-vessel coronary artery disease with 2 out of 3 grafts occluded but patency of the [place] circumflex and right coronary artery system, and patent VERNON to the LAD. Left ventricular systolic dysfunction present. Implantable defibrillator present. We will continue medical therapy based on the above. RECOMMENDATIONS Medical therapy CORONARY ANGIOGRAPHY DOMINANCE: Right Dominant LEFT HEART ASSESSMENT Left Ventricular Ejection Fraction: by LV Gram 40 % Global Hypokinesis - Moderate Depressed Left Ventricular systolic function LEFT MAIN: Mild calcification, No significant disease noted LEFT ANTERIOR DESCENDING ARTERY: MID LAD: is occluded CIRCUMFLEX ARTERY: Mild luminal irregularities less than 30% RIGHT CORONARY ARTERY: Moderate luminal irregularities up to 50% GRAFTS: VERNON graft to the Mid LAD is patent Saphenous Vein graft to the RCA is totally occluded Saphenous Vein graft to the CIRC is totally occluded Labs LDL Cholesterol 80 mg/dL (0-130) 05/10/20 HDL Cholesterol 34 mg/dL (40-) L 05/10/20 Triglycerides 170 mg/dL (-199) 05/10/20 VLDL Cholesterol 34 mg/dL (5-40) 05/10/20 Diagnostics Electrocardiogram 07/19/20 Echocardiogram 05/23/20 Stress Test Nuclear Medicine 05/23/20 Stress Test 05/23/20 Pacemaker Check 06/14/20 Cardiac Catheterization 06/27/20 Chest X-Ray 05/31/20
--- NOTE | 2020-08-04 08:36 | HP_ITS ---
HPI HPI History of Present Illness Surgical H&P: Yes Details: ANA JIMENEZ, is a 74 F who presents to the office today for a cardiovascular outpatient follow-up. She has a history of coronary artery disease status post bypass surgery in 1996 with an VERNON to the LAD, SVG to RCA, and SVG to LCx. She had subsequent angioplasty and stenting to proximal and distal RCA in 2011. She also has a history of ischemic cardiomyopathy, status post biventricular ICD implantation, hyperlipidemia, and tobacco abuse. Due to device achieving JUNITO, she will undergo generator change with Dr. Cosme on 08/04/2020. She denies chest, arm, jaw, or neck discomfort. Her exercise tolerance is stable. She denies symptoms of palpitations, lightheadedness, dizziness, near syncope, or syncopal episodes. She denies edema or claudication issues. She denies orthopnea, PND, fever, chills, blood in urine, blood in stool, epistaxis, myalgia, or unexplainable fatigue. She denies urinary symptoms. She states intermittent periods of SOB with activity, most noted when going up steps. Intake Vital Signs 07/19/20 Height 5 ft 2 in 07/19/20 Weight: 142 lb 07/19/20 BMI 25.9 07/19/20 BP 126/78 H 07/19/20 Blood Pressure Location Lt brachial 07/19/20 Position Sitting 07/19/20 Respiration 18 07/19/20 Pulse 68 07/19/20 Pulse Source Monitor 07/19/20 Pulse Oximetry (%) 99 Intake Visit Reasons: H&P gen chg 08/04, Jada 2pm [employer] Magistrate Required: No Accompanied by: None Is patient in pain?: No Allergies No Known Allergies Allergy (Verified 07/19/20 13:51) Medications Aspirin [Aspirin, Baby] 81 mg PO DAILY@0800 09/27/16 [History Confirmed 07/19/20] loratadine 10 mg capsule 10 mg PO DAILY 07/25/18 [History Confirmed 07/19/20] nitroglycerin 0.4 mg sublingual tablet 0.4 mg SUBLINGUAL Q5-15M PRN #25 tab 08/27/19 [Rx Confirmed 07/19/20] atorvastatin 80 mg tablet 80 mg PO QHS #90 tab 05/10/20 [Rx Confirmed 07/19/20] carvedilol 12.5 mg tablet 12.5 mg PO BID #180 tab 05/10/20 [Rx Confirmed 07/19/20] clopidogrel 75 mg tablet 75 mg PO DAILY #90 tab 05/10/20 [Rx Confirmed 07/19/20] furosemide 40 mg tablet 40 mg PO QAM #90 tab 05/10/20 [Rx Confirmed 07/19/20] lisinopril 20 mg tablet 20 mg PO BID #180 tab 05/10/20 [Rx Confirmed 07/19/20] potassium chloride 10 mEq capsule,extended release 10 meq PO DAILY #90 cap 07/19/20 [Rx Confirmed 07/19/20] [facility] Medical History (Updated 07/19/20 @ 14:52 by Hira Newman SET AND EXHIBIT DESIGNER, SET AND EXHIBIT DESIGNER-C) Atherosclerosis of coronary artery 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 (Chronic) 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) Ischemic cardiomyopathy (Chronic) Chronic systolic congestive heart failure (Chronic) Essential (primary) hypertension (Chronic) Hyperlipemia (Chronic) Nicotine dependence (Chronic) Bronchiectasis (Chronic) Atrioventricular block (Chronic) Ischemic cardiomyopathy (Chronic) Old myocardial infarction (Chronic) Tobacco abuse (Chronic) Syncope and collapse (Resolved) AV block (Inactive) Atherosclerotic heart disease of [place] coronary artery without angina pectoris (Inactive) Bronchiectasis (Inactive) CHF (congestive heart failure) (Inactive) History of sinus bradycardia (Inactive) History of syncope (Inactive) Hx of myocardial infarction (Inactive) Hypercholesteremia (Inactive) Hypokalemia (Inactive) Ischemic cardiomyopathy (Inactive) 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) Nonrheumatic aortic (valve) stenosis (Inactive) Nonrheumatic aortic (valve) stenosis (Inactive) Nonrheumatic mitral (valve) prolapse (Inactive) Nonrheumatic tricuspid (valve) insufficiency (Inactive) Psoriasis (Inactive) Surgical History (Updated 06/27/20 @ 13:54 by Shahla Contreras) H/O coronary artery bypass surgery (Resolved 04/28/97) History of coronary artery stent placement (Resolved 03/06/12) Biventricular ICD (implantable cardioverter-defibrillator) in place (Chronic 03/07/12) H/O tubal ligation (Resolved) History of electrophysiologic study (Resolved 03/07/12) History of left heart catheterization (Resolved 06/27/20) CABG VERNON graft LAD (Inactive) Hx of CABG (Inactive) Saphenous vein graft to CFX (Inactive) saphenous vein graft to RCA (Inactive) Family History Father CAD (coronary artery disease) Myocardial infarction Brother CAD (coronary artery disease) Myocardial infarction Mother Cancer Social History (Updated 07/19/20 @ 14:53 by Hira Newman SET AND EXHIBIT DESIGNER, SET AND EXHIBIT DESIGNER-C) Smoking Status: Current every day smoker second hand exposure: Yes alcohol intake: never substance use type: does not use caffeine: Yes Type: carbonated beverages what type of physical activity do you participate in: none seatbelt use: always do you feel safe at home: Yes ROS Const Const: Negative for fatigue, weakness, body ache, fever(s) or chills ENT ENT: Negative for dizziness Cardio Chest Pain: No Palpitations: No Edema: None Muscle aches with walking: None Resp Respiratory: Positive for SOB with activity; negative for SOB at rest, SOB orthopnea\SOB lying down or paroxysmal nocturnal dyspnea GI GI: Negative nausea, vomiting blood/hematemesis, bright, red blood in stools or black,tarry stools : Negative for hematuria or frequent nighttime urination/ nocturia Musc Musc: Negative for muscle aches/ myalgia Skin Skin: Negative non-healing lesions or rash Neuro Neuro: Negative for dizziness, lightheadedness, near syncope, syncope, orthostatic symptoms or weakness Endo Endo: Negative for fatigue Allergy Allergy/Immunology: Negative for rash Cardiology Exam Const Appearance: cooperative, healthy appearing, comfortable and no acute distress Nutritional Appearance: average body habitus and well nourished Orientation: alert, awake and oriented x3 Head Head: normal to inspection Ears: hearing grossly normal bilaterally Nose: external nose normal Face and Sinus: face symmetric Mouth: oral mucosae normal Eyes General: appearance normal, both eyes and all related structures Eyelids: eyelids normal EOM: EOM intact bilaterally Neck Neck: normal visual inspection and no JVD Carotids: normal carotid upstroke Chest Chest inspection: normal inspection of the chest, symmetric chest movement and normal respiratory effort; negative cough Auscultation: Bilateral: Clear to Auscultation Cardio Rate: regular rate Rhythm: regular rhythm Heart sounds: S1 normal, S2 normal and murmur; negative rub or gallop Murmur: Grade 1/6, soft and LLSB GI GI: normal to inspection Neuro General: alert, awake, oriented x3 and CN's II-XI intact bilaterally Skin Skin: no rashes or lesions noted Extremities Pulses: Normal: Right Posterior Tibial Pulse, Left Posterior Tibial Pulse, Right Radial Pulse, Left Radial Pulse Lower Extremity Edema: None: Bilateral Psych Psychological: normal affect Assessment & Plan 1. Atherosclerosis of coronary artery bypass graft of [place] heart without angina pectoris I25.810 Plan Her most recent heart catheterization on 06/27/2020 showed known triple-vessel coronary artery disease with 2 out of 3 grafts occluded but patency of the [place] circumflex and right coronary artery system, and patent VERNON to the LAD. Left ventricular systolic dysfunction present. Medical management was recommended. Patient denies any chest pain, arm pain, jaw pain, neck pain, new or worsening shortness of breath, or fatigue suggestive of angina at this time. We will continue to monitor. We will not make any medication regimen changes and will continue risk factor modification. Her EKG today in office shows sinus rhythm with first-degree AV block at a rate of 63 bpm, MT interval 228, QTc 391, and QRS 84. 2. H/O coronary artery bypass surgery Z95.1 CABG x3 VERNON to LAD, SVG to RCA, SVG to LCX 04/28/1997 Plan She will continue current medical therapy. 3. History of coronary artery stent placement Z95.5 [id number] RCA w/ 2.25 x 8 mm Promus Element Stent and ROBERTO-Prox RCA w/ 2.25 x 16 mm Promus Element Stent 03/06/2012 Plan She will continue risk factor and lifestyle modification. 4. Ischemic cardiomyopathy I25.5 Plan Her most recent echocardiogram on 05/23/2020 showed ejection fraction of 40% stage I diastolic dysfunction. She appears to be [place] Heart Association functional class II today. She does not appear to be in overt fluid volume overload state. It was discussed regards to medication adjustment such as increasing Coreg. However, since she she is doing symptomatically well, it was decided to continue current medical therapy as is. Over time, we can consider increasing Coreg therapy or adjusting lisinopril to Entresto therapy based on patient's overall progress. She will continue current diuretic. 5. Biventricular ICD (implantable cardioverter-defibrillator) in place Z95.810 Implanted @ [facility] 03/07/2012; Plan Patient's most recent FIRE CHIEF DEPUTY?D evaluation from 06/14/2020 showed no VT/VF episodes and no mode switch episodes since last check on 12/14/2019. Biventricular paced 53%. Atrial paced 95%. Battery life 4.3 months. Pacemaker evaluation prior to office visit showed atrial paced 95%, biventricular paced 53%, no mode switch episode, no VT/VF episodes. Her device is programmed for least amount of ventricular pacing. She will proceed with generator change with Dr. Cosme. 6. Essential hypertension I10 Plan Patient's blood pressure is well-controlled. We will continue to monitor. We will not make any medication regimen changes. 7. Mixed hyperlipidemia E78.2 Plan She continue current high-dose statin medication. 8. Cigarette nicotine dependence without complication F17.210 Plan Patient continues to smoke. She received extensive education regarding the health benefits of smoking cessation. We will continue to support and encourage smoking cessation. Plan Detail Other Orders Orders: COVID 19, PCR SENDOUT Today Z20.822 Other Medications Refilled: potassium chloride ER 10 mEq PO DAILY 90 caps 3RF Additional Comments Thank you for allowing us to participate in the patients plan of care, if you have any questions please do not hesitate to call. This note was generated using a voice recognition system and there may be incorrect words, spelling or punctuation that were not noted when reviewing the office note prior to saving. Coding Level of Care Code Off vis,est,level 3 Diagnoses Atherosclerosis of coronary artery bypass graft of [place] heart without angina pectoris I25.810 ??[place] vs. transplanted heart: [place] heart H/O coronary artery bypass surgery Z95.1 History of coronary artery stent placement Z95.5 Ischemic cardiomyopathy I25.5 Biventricular ICD (implantable cardioverter-defibrillator) in place Z95.810 Essential hypertension I10 Mixed hyperlipidemia E78.2 ??Hyperlipidemia type: mixed hyperlipidemia Cigarette nicotine dependence without complication F17.210 ??Nicotine product type: cigarettes ??Substance use status: uncomplicated Coding Level of Care Code Off vis,est,level 3 Diagnoses Atherosclerosis of coronary artery bypass graft of [place] heart without angina pectoris I25.810 ??[place] vs. transplanted heart: [place] heart H/O coronary artery bypass surgery Z95.1 History of coronary artery stent placement Z95.5 Ischemic cardiomyopathy I25.5 Biventricular ICD (implantable cardioverter-defibrillator) in place Z95.810 Essential hypertension I10 Mixed hyperlipidemia E78.2 ??Hyperlipidemia type: mixed hyperlipidemia Cigarette nicotine dependence without complication F17.210 ??Nicotine product type: cigarettes ??Substance use status: uncomplicated Supplemental Info Supplemental Information Echocardiogram from 05/23/2020: Interpretation Summary Normal LV size. The estimated ejection fraction is 40 %. Mild to moderate segmental systolic dysfunction (see wall motion). Stage 1 diastolic dysfunction. Compared to previous study, the left ventricular systolic function has improved. Echocardiogram from 07/13/15: Interpretation Summary Normal LV size. The estimated ejection fraction is 25 %. Moderately severe segmental systolic dysfunction (see wall motion). Mild (1+) tricuspid valve insufficiency. Bi-VICD evaluation from 03/11/18: Showed no VT/VF episodes and no MS episodes since last check on 08/16/2017. Presenting rhythm of AAI pacing at 60 ppm. Bi-Vpaced=45%, AP=95%, and estimated battery life of 2.4 years. Stress test from 05/23/2020: Interpretation Summary Normal LV size. The estimated ejection fraction is 40 %. Mild to moderate segmental systolic dysfunction (see wall motion). Stage 1 diastolic dysfunction. Compared to previous study, the left ventricular systolic function has improved.. Nuclear Stress test from 01/06/16: CONCLUSION: 1. Ischemic cardiomyopathy. 2. Pharmacologic myocardial perfusion stress test with no evidence of ischemia. 3. Previous anteroseptal, basal inferior, inferolateral infarct noted. No ischemia present. Cardiac catheterization from 06/27/2020: CONCLUSIONS Known triple-vessel coronary artery disease with 2 out of 3 grafts occluded but patency of the [place] circumflex and right coronary artery system, and patent VERNON to the LAD. Left ventricular systolic dysfunction present. Implantable defibrillator present. We will continue medical therapy based on the above. RECOMMENDATIONS Medical therapy CORONARY ANGIOGRAPHY DOMINANCE: Right Dominant LEFT HEART ASSESSMENT Left Ventricular Ejection Fraction: by LV Gram 40 % Global Hypokinesis - Moderate Depressed Left Ventricular systolic function LEFT MAIN: Mild calcification, No significant disease noted LEFT ANTERIOR DESCENDING ARTERY: MID LAD: is occluded CIRCUMFLEX ARTERY: Mild luminal irregularities less than 30% RIGHT CORONARY ARTERY: Moderate luminal irregularities up to 50% GRAFTS: VERNON graft to the Mid LAD is patent Saphenous Vein graft to the RCA is totally occluded Saphenous Vein graft to the CIRC is totally occluded Labs LDL Cholesterol 80 mg/dL (0-130) 05/10/20 HDL Cholesterol 34 mg/dL (40-) L 05/10/20 Triglycerides 170 mg/dL (-199) 05/10/20 VLDL Cholesterol 34 mg/dL (5-40) 05/10/20 Diagnostics Electrocardiogram 07/19/20 Echocardiogram 05/23/20 Stress Test Nuclear Medicine 05/23/20 Stress Test 05/23/20 Pacemaker Check 06/14/20 Cardiac Catheterization 06/27/20 Chest X-Ray 05/31/20
--- NOTE | 2020-08-04 09:35 | PCM.PN.BLA ---
Progress Note The surgeon/proceduralist and patient have discussed in detail the risk of exposure to and/or potential harm posed by the COVID-19 virus with having a surgery/procedure at this time versus the risk of? delaying the surgery/procedure. It is not possible to know either the risk of delaying the surgery or procedure or chance of getting an infection with perfect accuracy, but a joint decision was made between the patient and the surgeon/proceduralist ?to proceed at this time with the scheduled surgery/procedure as indicated on the consent form.
[2020-08-04 09:59] LABS: Anion Gap 2 (5-15); BUN 9 mg/dL (7-18); BUN/Creat Ratio 10.9 RATIO (10-20); Calcium,Total 8.9 mg/dL (8.5-10.1); Chloride 110 mmol/L (98-107); Creatinine, Serum 0.83 mg/dL (0.55-1.02); EST Glomerular Filtration Rate 72 mL/min (>60); Est Glom Filt Rate - Afr Amer 87 mL/min (>60); Estimated Creatinine Clearance 47.74 ml/min; Glucose 104 mg/dL (74-106); Potassium 3.8 mmol/L (3.5-5.1); Sodium Level 142 mmol/L (136-145)
--- NOTE | 2020-08-04 12:35 | PCM.OPRPT ---
Report of Operation Date of Procedure: 08/04/20 Description of Surgical Findings:: Diagnosis: Nonischemic Cardiomyopathy with NYHA Class iii. ICD for primary prevention. Device generator replacement for normal battery depletion Preoperative diagnosis is device at end of life for normal battery depletion. Postoperative diagnosis same as above. After informed consent and IV antibiotics the patient was brought to the [facility] catheterization laboratory and the skin over the device was prepped and draped in the usual sterile manner. Intermittent boluses of Versed, and fentanyl were used for sedation and analgesia as well as 1% subcutaneous lidocaine. An incision was made over the pre-existing device. Using blunt and Bovie dissection the pocket was opened and the device was removed. Careful attention was paid not to injure the pre-existing leads. The leads were removed from the device header and they were interrogated. There is normal lead function. Hemostasis was obtained. The pocket was flushed with antibiotic solution. The sponge and needle count were correct. The new device was brought to the field. The leads were placed in the appropriate position in the header and secured by the set screw. The leads and the device were then placed in the pocket. The pocket was closed with a deep layer of running 2-0 Vicryl, a superficial layer of running 4-0 Vicryl, skin with Steri-Strips which were covered with a rolled 4 x 4 and Tegaderm. Patient left the room with the device programmed to proper parameters and there were no complications. The device is a BiV ICD chamber morse tICD generator. All lead parameters were tested and found to be functionally normal. Lead and device serial and model numbers are available in the chart documents provided by the device company customer field representative procedure summary.
== END 2020-08-04 13:30 | disposition home or self-care (01) ==
PROVIDERS: PCP Family Medicine; Referring Provider Internal Medicine Cardiovascular Disease; Visit Provider Internal Medicine Cardiovascular Disease
DX: Z45.010 Encounter for checking and testing of cardiac pacemaker pulse generator [battery] (principal); I42.8 Other cardiomyopathies; I25.810 Atherosclerosis of coronary artery bypass graft(s) without angina pectoris; I11.0 Hypertensive heart disease with heart failure; I50.22 Chronic systolic (congestive) heart failure; E78.2 Mixed hyperlipidemia; I25.5 Ischemic cardiomyopathy; I25.2 Old myocardial infarction; E78.5 Hyperlipidemia, unspecified; Z95.5 Presence of coronary angioplasty implant and graft; Z95.1 Presence of aortocoronary bypass graft; Z79.82 Long term (current) use of aspirin; Z79.02 Long term (current) use of antithrombotics/antiplatelets; Z79.899 Other long term (current) drug therapy; F17.210 Nicotine dependence, cigarettes, uncomplicated
CPT/HCPCS: 33264; 36415; 80048; 81001; 85027; 85610; 93641; 99152; 99153; J7040; J7050

== ENCOUNTER → 2021-04-14 10:10 | Outpatient (CLI) | payer MEDICARE, SELFPAY ==
[2021-04-14 10:33] LABS: Absolute Lymphocyte Count 2.84 X10^3/uL (0.83-4.51); Absolute Neutrophil Count 4.2 X10^3/uL (2.0-7.7); Basophil# 0.02 X10^3/uL; Basophil% 0.3 % (0-1); Eosinophil# 0.09 X10^3/uL; Eosinophils% 1.2 % (0-5); Hemoglobin 13.1 g/dL (12.0-15.0); Lymphocyte # 2.84 X10^3/ul (0.83-4.51); Lymphocyte % 37.3 % (19-41); Mean Corp Hgb Conc 33.6 g/dL (32-36); Mean Corpuscular Hgb 31.4 pg (27.0-32.0); Mean Corpuscular Volume 93.5 fL (81-99); Mean Platelet Vol. 9.6 fl (6.2-12.0); Monocyte# 0.45 X10^3/uL; Monocyte% 5.9 % (0-10); NRBC Flagged by Analyzer 0 % (0-5); Platelet Count 258 K/mm3 (150-450); RBC Distribution Width CV 13.1 % (11.6-14.6); RBC Distribution Width SD 44.6 fl (35.1-43.9); Red Blood Count 4.17 M/mm3 (4.2-5.4); White Blood Count 7.6 K/mm3 (4.4-11.0)
[2021-04-14 11:07] LABS: ALB/GLOB Ratio 0.8 RATIO (0.9-2.4); AST(SGOT) 21 U/L (15-37); Alanine Aminotransfer ALT/SGPT 17 U/L (13-56); Albumin, Serum 3.5 g/dL (3.2-5.0); Alkaline Phosphatase 139 U/L (45-117); Anion Gap 7 (5-15); BUN 27 mg/dL (7-18); BUN/Creat Ratio 23.5 RATIO (10-20); Calcium,Total 9.3 mg/dL (8.5-10.1); Chloride 105 mmol/L (98-107); Cholesterol 152 mg/dL (200); Creatinine, Serum 1.15 mg/dL (0.55-1.02); EST Glomerular Filtration Rate 49 mL/min (>60); Est Glom Filt Rate - Afr Amer 59 mL/min (>60); Globulin 4.3 g/dL (2.2-4.2); Glucose 104 mg/dL (74-106); High Density Lipoprotein 32 mg/dL; Magnesium 2.4 mg/dL (1.6-2.6); Potassium 4.5 mmol/L (3.5-5.1); Protein, Total 7.8 g/dL (6.4-8.2); Sodium Level 136 mmol/L (136-145); Triglycerides 251 mg/dL; Very Low Density Lipoprotein 50 mg/dL (5-40)
[2021-04-14 12:14] LABS: Color, Urine Yellow (Yellow); Glucose, Dipstick Normal (Normal); Ketone-Dipstick Negative (Negative); Leukocyte Esterase-Dipstick 500 /ul (Negative); Nitrite-Dipstick Negative (Negative); Occult Blood-Urine 25 /ul (Negative); Protein-Dipstick Negative (Negative); Urine Bilirubin Dipstick Negative (Negative); Urine Clarity Sl. Cloudy (Clear); Urine Urobilinogen Normal (Normal)
== END ==
PROVIDERS: PCP Family Medicine
DX: I10 Essential (primary) hypertension (principal); E78.00 Pure hypercholesterolemia, unspecified; R25.2 Cramp and spasm; Z13.0 Encounter for screening for diseases of the blood and blood-forming organs and certain disorders involving the immune mechanism
CPT/HCPCS: 36415; 80053; 80061; 81002; 83735; 85025

== ENCOUNTER 2021-09-29 09:55 | Outpatient (CLI) | payer MEDICARE, SELFPAY ==
--- NOTE | 2021-09-29 09:57 | ART_ITS ---
Reason For Study: Decreased pedal pulses Procedure A bilateral lower extremity continuous wave Doppler with analog waveform analysis,segmental pressures,and ankle brachial indexes without exercise. Left Segmental Pressures Left brachial= 172mmHg. Left thigh = 139mmHg. Left calf = 113mmHg. Left posterior tibial artery = 116mmHg. Left dorsalis pedis artery = 98mmHg. Left digit = 72 mmHg. The left dorsalis pedis waveforms are monophasic. The left posterior tibial artery waveforms are monophasic. Right Segmental Pressures Right brachial= 170mmHg. Right thigh = 156mmHg. Right calf = 152mmHg. Right posterior tibial artery = 133mmHg. Right dorsalis pedis artery = 140mmHg. Right digit = 124 mmHg. The right dorsalis pedis waveforms are biphasic. The right posterior tibial artery waveforms are biphasic. Indices The right ankle brachial index by the dorsalis pedis is 0.81. The right ankle brachial index by the posterior tibial artery is 0.77. The right digital-brachial index is 0.72. The left ankle brachial index by the dorsalis pedis is 0.57. The left ankle brachial index by the posterior tibial artery is 0.67. The left digital-brachial index is 0.42. VL/Lower Ext Art Exam w/o Exercis Interpretation Summary Right mild occlusive disease at rest with biphasic flow and an MARY BETH 0.81. Left w ith moderate occlusive disease at rest with an MARY BETH 0.67 and monophasic flow noted. Ordering Physician: Hira Newman Referring Physician: Chris Marquez Performed By: Flavia Acosta RVT
== END 2021-09-29 23:59 | disposition home or self-care (01) ==
LOC: CVS 09:56
PROVIDERS: PCP Family Medicine; Referring Provider Nurse Practitioner Family; Visit Provider Nurse Practitioner Family
DX: I73.9 Peripheral vascular disease, unspecified (principal); R09.89 Other specified symptoms and signs involving the circulatory and respiratory systems
CPT/HCPCS: 93923

== ENCOUNTER → 2021-12-26 | Outpatient (CLI) | payer MEDICARE, SELFPAY ==
--- NOTE | 2021-12-26 07:30 | AAVD_ITS ---
Reason For Study: atherosclerosis of aorta Aorta Measurements Aorta Doppler Measurements Proximal aorta measures1.39 x 1.33cm. in cross- Peak systolic flow velocities within the proximal sectional axis. aorta measure 36.0 cm/sec. Proximal aorta measures1.4cm. in longitudinal Peak systolic flow velocities within the mid aorta axis. measure 33.9 cm/sec. Mid aorta measures1.0 x 1.1cm. in cross-sectional Peak systolic flow velocities within the distal axis. aorta measure 32.5 cm/sec. Mid aorta measures1.14cm. in longitudinal axis. Distal aorta measures.91 x .9cm. in cross- sectional axis. Distal aorta measures.89cm. in longitudinal axis. Left Iliac Artery Left iliac artery measures .39 x .42 cm. in the cross-sectional axis. Left iliac artery measures .48 cm. in the longitudinal axis. Peak systolic velocity in the left iliac artery measures 123.5 cm/sec. Right Iliac Artery Right iliac artery measures .4 x .44 cm. in the cross-sectional axis. Right iliac artery measures .45 cm. in the longitudinal axis. Peak systolic velocity in the right iliac artery measures 63.9 cm/sec. VL/Abd Aortic/IVC Duplex scan Interpretation Summary No evidence of aortic iliac aneurysm or stenosis noted. Although smaller lumen noted throughout with the aorta down to 9 mm. And bilateral iliac arteries under 5 mm. Ordering Physician: Keith Jaime Performed By: Papi Hsieh RVT
--- NOTE | 2021-12-26 07:31 | ADU_ITS ---
Reason For Study: stricture of artery Right Velocities Left Velocities Ext. Iliac Artery, dist = 110.1 cm./sec. Ext Iliac Artery, dist = 93.0 cm./sec. Common Femoral Artery, mid = 146.2 cm./sec. Common Femoral Artery, mid = 89.7 cm./sec. Supf Femoral Artery, prox = 107.0 cm./sec. Supf. Femoral Artery, prox = 73.2 cm./sec. Supf Femoral Artery, mid = 49.9 cm./sec. Supf. Femoral Artery, mid = 119.8 cm./sec. Supf Femoral Artery, dist. = 48.6 cm./sec. Supf. Femoral Artery, dist = 19.5 cm./sec. Profunda Femoral Artery = 72.3 cm./sec. Profunda Femoral Artery = 96.3 cm./sec. Popliteal Artery, mid = 81.8 cm./sec. Popliteal Artery, mid = 36.5 cm./sec. Ant. Tibial Artery, prox = 66.8 cm./sec. Ant.Tibial Artery, prox = 27.0 cm./sec. Ant. Tibial Artery, mid = 62.4 cm./sec. Ant Tibial Artery, mid = 18.5 cm./sec. Ant. Tibial Artery, dist = 59.8 cm./sec. Ant. Tibial Artery, distal = 14.7 cm./sec. Post. Tibial Artery, prox = 21.4 cm./sec. Unable to obtain flow in the prox and mid BOATBUIL[employer] WO[employer]. Post. Tibial Artery, mid = 11.9 cm./sec. Post Tibial Artery, dist. = 5.3 cm./sec. Post. Tibial Artery, dist = 7.5 cm./sec. Peroneal Artery, prox = 32.7 cm./sec. Peroneal Artery, prox = 24.9 cm./sec. Peroneal Artery, mid = 39.3 cm./sec. Peroneal Artery, mid = 24.9 cm./sec. Peroneal Artery,dist. = 33.6 cm./sec. Peroneal Artery,dist = 29.3 cm./sec. /US Art Duplex Bilat Lower Ext Interpretation Summary No evidence of significant occlusive disease in bilateral lower extremities exc ept in the left proximal to mid posterior tibial artery that is occluded. More biphasic flow no eligio. Ordering Physician: Keith Jaime Performed By: Papi Hsieh RVT
--- NOTE | 2021-12-26 07:31 | ART_ITS ---
Reason For Study: atherosclerosis with claudication Procedure A bilateral lower extremity continuous wave Doppler with analog waveform analysis and ankle brachial indexes. Left Segmental Pressures Left brachial= 138mmHg. Left posterior tibial artery = 101mmHg. Left dorsalis pedis artery = 90mmHg. The left dorsalis pedis waveforms are monophasic. The left posterior tibial artery waveforms are monophasic. Right Segmental Pressures Right brachial= 132mmHg. Right posterior tibial artery = 117mmHg. Right dorsalis pedis artery = 123mmHg. The right dorsalis pedis waveforms are biphasic. The right posterior tibial artery waveforms are biphasic. Indices The right ankle brachial index by the dorsalis pedis is .89. The right ankle brachial index by the posterior tibial artery is .85. The left ankle brachial index by the dorsalis pedis is .65. The left ankle brachial index by the posterior tibial artery is .73. VL/Ankle Brachial Index Interpretation Summary Bilateral mild occlusive disease at rest with an MARY BETH 0.89 on the right and 0.73 on the left. Ordering Physician: Keith Jaime Performed By: Papi Hsieh RVT
--- NOTE | 2021-12-26 07:31 | CDU_ITS ---
Reason For Study: carotid stenosis Rt. Velocities/BP Lt. Velocities/BP Prox CCA 82.6/20.0 cm/sec. Prox CCA 78.6/26.5 cm/sec. Mid CCA 83.9/22.6 cm/sec. Mid CCA 81.2/26.5 cm/sec. Dist CCA 56.5/22.6 cm/sec. Dist CCA 73.4/25.2 cm/sec. Prox ICA 107.3/26.5 cm/sec. Prox ICA 89.0/31.7 cm/sec. Mid ICA 86.5/29.1 cm/sec. Mid ICA 130.2/38.9 cm/sec. Dist ICA 104.7/27.8 cm/sec. Dist ICA 117.4/35.3 cm/sec. Rt. ICA/CCA = 1.3. Lt. ICA/CCA = 1.6. Prox ECA 81.2/12.1 cm/sec. Prox ECA 93.0/10.8 cm/sec. Rt. Vert. 42.1/13.4 cm/sec. Lt. Vert. 75.4/27.9 cm/sec. Right Extracranial There is homogeneous, smooth atherosclerotic plaque noted in the right common carotid artery. There is heterogeneous, irregular atherosclerotic plaque noted in the right internal carotid artery. There is heterogeneous, irregular atherosclerotic plaque noted in the right external carotid artery. Antegrade flow is noted in the right vertebral artery. Left Extracranial There is heterogeneous, irregular atherosclerotic plaque noted in the left common carotid artery. There is heterogeneous, irregular atherosclerotic plaque noted in the left internal carotid artery. There is heterogeneous, irregular atherosclerotic plaque noted in the left external carotid artery. Antegrade flow is noted in the left vertebral artery. Procedure Carotid Duplex 38470. This is a Carotid Duplex examination using B-mode, color flow and specral Doppler. The exam was diagnostic. Exam performed in department. VL/Carotid Duplex Ultrasound Interpretation Summary Mild (<50%) stenosis right extracranial internal carotid. Moderate (50-69%) alf nosis left extracranial internal carotid. Flow within the vertebral arteries is antegrade bilaterally. Ordering Physician: Keith Jaime Performed By: Papi Hsieh RVT
== END | disposition home or self-care (01) ==
LOC: CVS 07:25
PROVIDERS: PCP Family Medicine; Referring Provider Surgery Vascular Surgery; Visit Provider Surgery Vascular Surgery
DX: I65.23 Occlusion and stenosis of bilateral carotid arteries (principal); I70.213 Atherosclerosis of native arteries of extremities with intermittent claudication, bilateral legs; I77.1 Stricture of artery; I70.0 Atherosclerosis of aorta; Z95.1 Presence of aortocoronary bypass graft; Z95.0 Presence of cardiac pacemaker; I11.9 Hypertensive heart disease without heart failure; I25.2 Old myocardial infarction
CPT/HCPCS: 93880; 93922; 93925; 93978

== ENCOUNTER → 2022-01-23 | Outpatient (CLI) | payer MEDICARE, SELFPAY ==
[2022-01-23 17:08] LABS: BUN 10 mg/dL (7-18); Creatinine, Serum 0.96 mg/dL (0.55-1.02); EST Glomerular Filtration Rate 60 mL/min (>60); Est Glom Filt Rate - Afr Amer 72 mL/min (>60)
== END | disposition home or self-care (01) ==
LOC: LAB 16:31
PROVIDERS: PCP Family Medicine; Visit Provider Surgery Vascular Surgery
DX: I65.23 Occlusion and stenosis of bilateral carotid arteries (principal); D89.89 Other specified disorders involving the immune mechanism, not elsewhere classified; I70.213 Atherosclerosis of native arteries of extremities with intermittent claudication, bilateral legs; I77.1 Stricture of artery; I70.0 Atherosclerosis of aorta; Z95.1 Presence of aortocoronary bypass graft; F17.200 Nicotine dependence, unspecified, uncomplicated; Z95.0 Presence of cardiac pacemaker; M79.606 Pain in leg, unspecified; E78.00 Pure hypercholesterolemia, unspecified; I11.9 Hypertensive heart disease without heart failure; I25.2 Old myocardial infarction
CPT/HCPCS: 36415; 82565; 84520

== ENCOUNTER → 2022-01-26 | Outpatient (CLI) | payer MEDICARE, SELFPAY ==
--- NOTE | 2022-01-26 07:32 | CT_ITS ---
STUDY: CTA OF THE ABDOMINAL AORTA AND BILATERAL LOWER EXTREMITIES REASON FOR EXAM: Female, 76 years old. STENOSIS RADIATION DOSAGE (If Supplied By Facility): CTDIvol = ( 7.80 ) mGy, DLP = ( 978.18 ) mGycm TECHNIQUE: Axial CT angiography multi-detector data acquisition was obtained from the level of the diaphragm to the following intravenous administration of IV 100mL Isovue-370. Axial images and MIP images were reconstructed from the axial data set. Post-processing of the angiographic images was performed, with multiplanar reformation and 3D reconstruction. Individualized dose optimization techniques were used for this CT. TECHNICAL QUALITY: Good COMPARISON: None. Descriptors of Narrowing: None (0%) Mild (< 50%) Moderate (50-70%) Severe (70-90%) Subtotal/Total Occlusion (90-100%) Non-Evaluable (technically non-diagnostic FINDINGS: Abdominal aorta: Atherosclerotic disease with calcified plaque visualized throughout the abdominal aorta but no evidence of significant narrowing is visualized. No evidence of aneurysmal dilatation or arterial dissection is seen. Celiac and superior mesenteric arteries: Mild to moderate narrowing of the proximal celiac artery seen on sagittal series 602 image 88. No significant narrowing of the superior mesenteric artery. Inferior mesenteric artery: Extensive atherosclerotic disease with areas of mild narrowing visualized Right renal artery(arteries): Mild narrowing of the right renal artery visualized on coronal series 601 image 60. Left renal artery(arteries): Mild narrowing of the left renal artery visualized on coronal series 601 image 63. Right common iliac artery: Atherosclerotic calcifications visualized but no significant narrowing seen.. Right external iliac artery: Atherosclerotic calcifications visualized but no significant narrowing seen.. Right internal iliac artery: Atherosclerotic calcifications visualized but no significant narrowing seen.. Left common iliac artery: Atherosclerotic calcifications visualized but no significant narrowing seen.. Left external iliac artery: Atherosclerotic calcifications visualized but no significant narrowing seen.. Left internal iliac artery: Atherosclerotic calcifications visualized but no significant narrowing seen.. RIGHT LOWER EXTREMITY Right common femoral artery: Atherosclerotic calcifications visualized but no significant narrowing seen.. Right profundus femoris: Atherosclerotic calcifications visualized but no significant narrowing seen.. Right superficial femoral: Atherosclerotic calcifications visualized with subtle focal areas of mild narrowing seen.. Right popliteal artery: Atherosclerotic calcifications visualized with subtle focal areas of mild narrowing seen.. Right tibioperoneal trunk: No significant narrowing seen.. Right anterior tibial artery: No significant narrowing seen.. Right posterior tibial artery: The posterior tibial artery is visualized in its proximal segment, proximal 5 cm that demonstrates multiple areas of narrowing, coughing visualization of the distal posterior tibial artery with areas of complete opacification seen. Right peroneal artery: Areas of mild narrowing visualized but no evidence of occlusion. LEFT LOWER EXTREMITY Left common femoral artery: Atherosclerotic calcifications visualized with areas of mild narrowing visualized. Left profundus femoris: No demonstrated narrowing. Left superficial femoral: Atherosclerotic calcifications with areas of mild to moderate narrowing visualized. Left popliteal artery: Atherosclerotic calcifications visualized with no evidence of significant narrowing seen. Left tibioperoneal trunk: No demonstrated narrowing. Left anterior tibial artery: Atherosclerotic disease with mild/moderate in the proximal segment, remaining anterior tibial demonstrates no significant narrowing or occlusion is visualized entering the foot. Left posterior tibial artery: Moderate to severe narrowing visualized at the origin, with nonopacification visualized approximately 3.5 cm from the origin faint areas of reconstitution visualized distally. Left peroneal artery: No demonstrated narrowing. CT/CTA Abd w/Runoff W/WO Contrast IMPRESSION: Atherosclerotic calcifications visualized in the abdominal and pelvic vessels but no evidence of hemodynamically significant stenosis. Atherosclerotic calcifications visualized in bilateral lower extremity vessels. Two-vessel runoff to the right foot composed of the right anterior tibial and the right peroneal artery. Two-vessel runoff to the left foot composed of the left anterior tibial and the left peroneal artery. Electronically Signed: Maxx Narvaez MD at 12:01 EDT ,
== END | disposition home or self-care (01) ==
LOC: CT 07:29
PROVIDERS: PCP Family Medicine; Referring Provider Surgery Vascular Surgery; Visit Provider Surgery Vascular Surgery
DX: I65.23 Occlusion and stenosis of bilateral carotid arteries (principal); D89.89 Other specified disorders involving the immune mechanism, not elsewhere classified; I70.213 Atherosclerosis of native arteries of extremities with intermittent claudication, bilateral legs; I77.1 Stricture of artery; I70.0 Atherosclerosis of aorta; I21.3 ST elevation (STEMI) myocardial infarction of unspecified site; F17.200 Nicotine dependence, unspecified, uncomplicated; M79.606 Pain in leg, unspecified; E78.00 Pure hypercholesterolemia, unspecified; I10 Essential (primary) hypertension; Z95.1 Presence of aortocoronary bypass graft; Z95.0 Presence of cardiac pacemaker
CPT/HCPCS: 75635; Q9967

== ENCOUNTER → 2022-10-16 | Outpatient (CLI) | payer MEDICARE, SELFPAY ==
[2022-10-16 12:28] LABS: AST(SGOT) 26 U/L (15-37); Alanine Aminotransfer ALT/SGPT 19 U/L (13-56); Albumin, Serum 3.7 g/dL (3.2-5.0); Alkaline Phosphatase 142 U/L (45-117); Bilirubin, Direct 0.07 mg/dL (0.00-0.30); Cholesterol 190 mg/dL (200); High Density Lipoprotein 38 mg/dL; Protein, Total 7.7 g/dL (6.4-8.2); Triglycerides 224 mg/dL; Very Low Density Lipoprotein 45 mg/dL (5-40)
== END | disposition home or self-care (01) ==
LOC: LAB 11:15
PROVIDERS: PCP Family Medicine; Referring Provider Nurse Practitioner Family; Visit Provider Nurse Practitioner Family
DX: E78.00 Pure hypercholesterolemia, unspecified (principal)
CPT/HCPCS: 36415; 80061; 80076

== ENCOUNTER → 2023-03-05 | Outpatient (CLI) | payer MEDICARE, SELFPAY ==
--- NOTE | 2023-03-05 07:45 | AAVD_ITS ---
Reason For Study: atherosclerosis of the aorta Aorta Measurements Aorta Doppler Measurements Proximal aorta measures1.22 x 1.26cm. in cross- Peak systolic flow velocities within the proximal sectional axis. aorta measure 56.7 cm/sec. Proximal aorta measures1.3cm. in longitudinal Peak systolic flow velocities within the mid aorta axis. measure 41.5 cm/sec. Mid aorta measures1.32 x 1.48cm. in cross- Peak systolic flow velocities within the distal sectional axis. aorta measure 37.1 cm/sec. Mid aorta measures1.41cm. in longitudinal axis. Distal aorta measures1.04 x 1.03cm. in cross- sectional axis. Distal aorta measures1.03cm. in longitudinal axis. Left Iliac Artery Left iliac artery measures .52 x .63 cm. in the cross-sectional axis. Left iliac artery measures .62 cm. in the longitudinal axis. Peak systolic velocity in the left iliac artery measures 65.6 cm/sec. Right Iliac Artery Right iliac artery measures .58 x .61 cm. in the cross-sectional axis. Right iliac artery measures .63 cm. in the longitudinal axis. Peak systolic velocity in the right iliac artery measures 70.0 cm/sec. Procedure Aorta IVC Iliac vasculature or bypass grafts 28865. The exam was diagnostic. Exam performed in department. VL/Abd Aortic/IVC Duplex scan Interpretation Summary No aortoiliac aneurysm or stenosis. Ordering Physician: Keith Jaime Performed By: Papi Hsieh RVT
--- NOTE | 2023-03-05 07:45 | ART_ITS ---
Reason For Study: claudication, atherosclerosis of the aorta Procedure A bilateral lower extremity continuous wave Doppler with analog waveform analysis and ankle brachial indexes. Left Segmental Pressures Left brachial= 108mmHg. Left posterior tibial artery = 74mmHg. Left dorsalis pedis artery = 63mmHg. The left dorsalis pedis waveforms are monophasic. The left posterior tibial artery waveforms are monophasic. Right Segmental Pressures Right brachial= 111mmHg. Right posterior tibial artery = 74mmHg. Right dorsalis pedis artery = 78mmHg. The right posterior tibial artery waveforms are monophasic. The right dorsalis pedis waveforms are biphasic. Indices The right ankle brachial index by the dorsalis pedis is .7. The right ankle brachial index by the posterior tibial artery is .67. The left ankle brachial index by the dorsalis pedis is .57. The left ankle brachial index by the posterior tibial artery is .67. VL/Ankle Brachial Index Interpretation Summary Bilateral moderate occlussive disease with right biphasic and left monophasic a nd MARY BETH 0.7 and 0.67. Ordering Physician: Keith Jaime Performed By: Papi Hsieh RVT
--- NOTE | 2023-03-05 07:45 | CDU_ITS ---
Reason For Study: carotid stenosis Rt. Velocities/BP Lt. Velocities/BP Prox CCA 77.8/21.1 cm/sec. Prox CCA 99.8/29.8 cm/sec. Mid CCA 85.3/20.1 cm/sec. Mid CCA 85.1/26.2 cm/sec. Dist CCA 82.5/20.1 cm/sec. Dist CCA 80.2/29.8 cm/sec. Prox ICA 130.2/31.6 cm/sec. Prox ICA 101.0/29.8 cm/sec. Mid ICA 119.3/37.1 cm/sec. Mid ICA 132.4/46.8 cm/sec. Dist ICA 99.2/27.5 cm/sec. Dist ICA 140.6/39.8 cm/sec. Rt. ICA/CCA = 1.5. Lt. ICA/CCA = 1.7. Prox ECA 81.5/9.7 cm/sec. Prox ECA 99.8/6.5 cm/sec. Rt. Vert. 72.8/20.2 cm/sec. Lt. Vert. 106.9/26.7 cm/sec. Right Extracranial There is homogeneous, smooth atherosclerotic plaque noted in the right common carotid artery. There is heterogeneous, irregular atherosclerotic plaque noted in the right internal carotid artery. There is heterogeneous, irregular atherosclerotic plaque noted in the right external carotid artery. Antegrade flow is noted in the right vertebral artery. Left Extracranial There is heterogeneous, irregular atherosclerotic plaque noted in the left common carotid artery. There is heterogeneous, irregular atherosclerotic plaque noted in the left internal carotid artery. There is heterogeneous, irregular atherosclerotic plaque noted in the left external carotid artery. Antegrade flow is noted in the left vertebral artery. Procedure Carotid Duplex 26754. This is a Carotid Duplex examination using B-mode, color flow and specral Doppler. The exam was diagnostic. Exam performed in department. VL/Carotid Duplex Ultrasound Interpretation Summary Mild (<50%) stenosis right extracranial internal carotid. Mild (<50%) stenosis left extracranial internal carotid. Flow within the vertebral arteries is antegrade bilaterally. Ordering Physician: Keith Jaime Performed By: Papi Hsieh RVT
== END | disposition home or self-care (01) ==
LOC: CVS 07:43
PROVIDERS: PCP Family Medicine; Referring Provider Surgery Vascular Surgery; Visit Provider Surgery Vascular Surgery
DX: I65.23 Occlusion and stenosis of bilateral carotid arteries (principal); I70.213 Atherosclerosis of native arteries of extremities with intermittent claudication, bilateral legs; I77.1 Stricture of artery; I70.0 Atherosclerosis of aorta; I10 Essential (primary) hypertension; F17.200 Nicotine dependence, unspecified, uncomplicated
CPT/HCPCS: 93880; 93922; 93978

== ENCOUNTER → 2023-04-29 | Outpatient (CLI) | payer MEDICARE, SELFPAY ==
[2023-04-29 13:16] LABS: AST(SGOT) 17 U/L (15-37); Alanine Aminotransfer ALT/SGPT 14 U/L (13-56); Albumin, Serum 3.8 g/dL (3.2-5.0); Alkaline Phosphatase 143 U/L (45-117); Anion Gap 4 (5-15); BUN 8 mg/dL (7-18); BUN/Creat Ratio 9.1 RATIO (10-20); Bilirubin, Direct 0.16 mg/dL (0.00-0.30); Calcium,Total 9.4 mg/dL (8.5-10.1); Chloride 113 mmol/L (98-107); Cholesterol 136 mg/dL (200); Creatinine, Serum 0.88 mg/dL (0.55-1.02); EST Glomerular Filtration Rate 66 mL/min (>60); Est Glom Filt Rate - Afr Amer 80 mL/min (>60); Globulin 3.7 g/dL (2.2-4.2); Glucose 122 mg/dL (74-106); High Density Lipoprotein 29 mg/dL; Magnesium 2.1 mg/dL (1.6-2.6); Potassium 4.4 mmol/L (3.5-5.1); Protein, Total 7.5 g/dL (6.4-8.2); Sodium Level 142 mmol/L (136-145); Triglycerides 265 mg/dL; Very Low Density Lipoprotein 53 mg/dL (5-40)
== END | disposition home or self-care (01) ==
LOC: LAB 11:46
PROVIDERS: PCP Family Medicine; Referring Provider Nurse Practitioner Family; Visit Provider Nurse Practitioner Family
DX: E78.00 Pure hypercholesterolemia, unspecified (principal); I73.9 Peripheral vascular disease, unspecified; E78.2 Mixed hyperlipidemia
CPT/HCPCS: 36415; 80053; 80061; 82248; 83735

== ENCOUNTER → 2023-10-30 | Outpatient (CLI) | payer MEDICARE, SELFPAY ==
--- NOTE | 2023-10-30 09:53 | ART_ITS ---
Reason For Study: BLE Pain Procedure A bilateral lower extremity continuous wave Doppler with analog waveform analysis and ankle brachial indexes. Left Segmental Pressures Left brachial= 104mmHg. Left posterior tibial artery = 71mmHg. Left dorsalis pedis artery = 57mmHg. Left digit = 37 mmHg. The left posterior tibial artery waveforms are monophasic. The left dorsalis pedis waveforms are monophasic. Right Segmental Pressures Right brachial= 114mmHg. Right posterior tibial artery = 84mmHg. Right dorsalis pedis artery = 69mmHg. Right digit = 61 mmHg. The right posterior tibial artery waveforms are biphasic. The right dorsalis pedis waveforms are biphasic. Indices The right ankle brachial index by the posterior tibial artery is 0.74. The right ankle brachial index by the dorsalis pedis is 0.61. The right digital-brachial index is 0.54. The left ankle brachial index by the posterior tibial artery is 0.62. The left ankle brachial index by the dorsalis pedis is 0.50. The left digital-brachial index is 0.32. VL/Ankle Brachial Index Interpretation Summary Right mild PAD with MARY BETH 0.74 and left moderate at t0.62. Digits 0.54 and 0.32. Ordering Physician: Keith Jaime Referring Physician: Chris Marquez Performed By: Brodie Georges RVT
== END | disposition home or self-care (01) ==
LOC: CVS 09:52
PROVIDERS: PCP Family Medicine; Referring Provider Surgery Vascular Surgery; Visit Provider Surgery Vascular Surgery
DX: I70.213 Atherosclerosis of native arteries of extremities with intermittent claudication, bilateral legs (principal); I70.0 Atherosclerosis of aorta; M79.606 Pain in leg, unspecified; I10 Essential (primary) hypertension; F17.200 Nicotine dependence, unspecified, uncomplicated
CPT/HCPCS: 93922

== ENCOUNTER → 2023-12-02 | Outpatient (CLI) | payer MEDICARE, SELFPAY ==
--- NOTE | 2023-12-02 13:49 | CT_ITS ---
HISTORY: ATHEROSCLEROSIS WITH CLAUDICATION. TECHNIQUE: Axial CT angiography multi-detector data acquisition was obtained from the abdomen and pelvis to the bilateral lower extremities following intravenous administration of 100 mL Isovue-370. Axial images and MIP images were reconstructed from the axial data set. Post-processing of the angiographic images was performed, with multiplanar reformation and 3D reconstruction. Individualized dose optimization techniques were used for this CT. 1054 images. COMPARISON: 01/26/2022 Descriptors of Narrowing: None (0%) Mild (< 50%) Moderate (50-70%) Severe (70-90%) Subtotal/Total Occlusion (90-100%) Non-Evaluable (technically non-diagnostic) FINDINGS: LOWER CHEST: Cardiac pacemaker with midline sternotomy. Mild bibasilar atelectasis. BOWEL: Bowel including appendix nondilated. No focal pericolonic inflammation. PERITONEUM: No significant ascites. LIVER: No enhancing mass. GALLBLADDER: Small calcified gallstones. SPLEEN/PANCREAS: No focal lesion. KIDNEYS/ADRENAL GLANDS: Unremarkable. PELVIC ORGANS: Small right calcified uterine lesion again seen. OSSEOUS STRUCTURES: Degenerative change. ABDOMINAL AORTA: Atherosclerosis without aneurysm, dissection flap, or significant stenosis. CELIAC AXIS/SUPERIOR MESENTERIC ARTERY: Chronic mild stenosis proximally. INFERIOR MESENTERIC ARTERY: No demonstrated narrowing. RENAL ARTERIES: Chronic mild narrowing of the single right, main left, and accessory left renal arteries. RIGHT RIGHT ILIAC ARTERIES: Moderate stenosis with calcified plaque in the common iliac artery stent into the origins of the internal and external iliac arteries. LEFT ILIAC ARTERIES: Mild to moderate stenosis of the common iliac artery. Mild stenosis of the internal and external iliac arteries. RIGHT LOWER EXTREMITY-Surgical clips medially. Right common femoral artery: Calcified plaque with greater than 75% stenosis distally. Right profundus femoris: No demonstrated narrowing. Right superficial femoral: Mild-moderate stenoses proximally. Mild stenoses mid to distally. Right popliteal artery: At least moderate stenosis proximally. Right three-vessel runoff: Patent tibioperoneal trunk. Patent anterior tibial artery with flow past the ankle into the foot. Multiple segments of stenosis in the posterior tibial artery with occlusion or near occlusion mid to distally, as well as reconstitution of flow distally with flow followed to the ankle. Patent peroneal artery. LEFT LOWER EXTREMITY Left common femoral artery: Mild stenosis. Left profundus femoris: Mild calcified plaque proximally. Left superficial femoral: Approximately 60% stenoses. Left popliteal artery: Mild stenosis. Left tibioperoneal trunk: No demonstrated narrowing. Left three-vessel runoff: Patent tibioperoneal trunk. Mild calcified plaque in the proximal anterior tibial artery, patent with flow followed past the ankle. Patent peroneal artery. Severe stenosis and occlusions of the proximal to mid posterior tibial artery with reconstitution of flow distally at the ankle and flow followed into the foot. 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 Mild-moderate stenoses of the right superficial femoral and popliteal arteries. Moderate stenosis of the left superficial femoral artery. Chronic severe stenoses and occlusions of the bilateral posterior tibial arteries with reconstitution of flow distally. Cholelithiasis. Small calcified uterine leiomyoma. Electronically Signed: Flori Vela MD at 13:28 EDT ,
[2023-12-02 14:20] LABS: CREATININE FINGERSTICK 1.2 mg/dL (0.55-1.02)
== END | disposition home or self-care (01) ==
LOC: CT 13:43
PROVIDERS: PCP Family Medicine; Referring Provider Surgery Vascular Surgery; Visit Provider Surgery Vascular Surgery
DX: I70.213 Atherosclerosis of native arteries of extremities with intermittent claudication, bilateral legs (principal); I70.0 Atherosclerosis of aorta; M79.606 Pain in leg, unspecified; I10 Essential (primary) hypertension; F17.200 Nicotine dependence, unspecified, uncomplicated
CPT/HCPCS: 75635; Q9967

== ENCOUNTER → 2023-12-30 | Outpatient (CLI) | payer MEDICARE, SELFPAY ==
--- NOTE | 2023-12-30 13:34 | ECHOD_ITS ---
Reason For Study: CONGESTIVE HEART FAILURE Procedure This was a 2D Doppler, Color Flow transthoracic echocardiogram. Myocardial strain analysis was performed in this exam to aid in the assessment of cardiac function. Exam performed in department. Left Ventricle Normal LV size. The left ventricular ejection fraction is 40 %. Stage 1 diastolic dysfunction. There are regional wall motion abnormalities as specified. Right Ventricle Normal RV size. ICD or pacer leads identified within the right ventricle. Normal systolic function. Tricuspid Valve Normal tricuspid valve. Mild (1+) tricuspid valve insufficiency. Pulmonary artery systolic pressure is 30 mmHg. Pulmonic Valve Normal pulmonic valve. Great Vessels Normal aortic root. The pulmonary artery is normal size. Pericardium/Pleural No pericardial effusion. MMode/2D Measurements & Calculations LVIDd: 4.7 cm IVSd: 1.1 cm LVOT diam: 2.0 cm LVIDs: 3.5 cm LVPWd: 1.2 cm RVDd: 3.5 cm FS: 24.3 % LVOT area: 3.2 cm2 Ao root diam: 2.9 cm LAV(MOD-bp): 50.3 ml LVAd ap4: 21.1 cm2 LAV(MOD-bp) Indexed: 30.2 ml/m2 LVLd ap4: 6.8 cm LAV(MOD-sp2): 57.6 ml EDV(MOD-sp4): 53.9 ml LAV(MOD-sp4): 43.4 ml EDV(sp4-el): 56.0 ml LVAs ap4: 16.3 cm2 LVLs ap4: 5.8 cm ESV(MOD-sp4): 36.4 ml ESV(sp4-el): 38.9 ml EF(MOD-sp4): 32.6 % EF(sp4-el): 30.6 % LVAd ap2: 18.8 cm2 SV(MOD-sp4): 17.6 ml SV(MOD-sp2): 17.5 ml LVLd ap2: 6.2 cm EDV(MOD-sp2): 45.3 ml EDV(sp2-el): 48.0 ml LVAs ap2: 14.4 cm2 LVLs ap2: 6.0 cm ESV(MOD-sp2): 27.7 ml ESV(sp2-el): 29.4 ml EF(MOD-sp2): 38.7 % SV(sp4-el): 17.2 ml LA A4 area: 17.6 cm2 LA dimension(2D): 4.1 cm RA A4 area: 11.7 cm2 TAPSE: 1.6 cm Time Measurements MV dec time: 0.21 sec Doppler Measurements & Calculations MV E max jatinder: 70.5 cm/sec Lat Peak E' Jatinder: 6.7 cm/sec Med Peak E' Jatinder: 5.2 cm/sec MV A max jatinder: 73.5 cm/sec E/E' lat: 10.5 E/E' med: 13.7 MV E/A: 0.96 MV dec slope: 333.7 cm/sec2 Ao V2 max: 180.9 cm/sec LV V1 max: 123.8 cm/sec Ao max P.1 mmHg LV V1 max P.1 mmHg Ao V2 mean: 118.6 cm/sec LV V1 mean P.4 mmHg Ao mean P.5 mmHg LV V1 mean: 85.8 cm/sec Ao V2 VTI: 42.0 cm LV V1 VTI: 27.9 cm AV (velocity ratio): 0.66 NIYAH(I,D): 2.1 cm2 NIYAH(V,D): 2.2 cm2 SV(LVOT): 88.3 ml PA V2 max: 83.2 cm/sec TR max jatinder: 258.8 cm/sec PA max PG (full): 1.5 mmHg TR max P.8 mmHg ECHO/Echo Complete Interpretation Summary The left ventricular ejection fraction is 40 %. Stage 1 diastolic dysfunction. Pulmonary artery systolic pressure is 30 mmHg. The global longitudinal strain = -12.1% (abnormal). The global longitudinal str ain is moderately abnormal. Ordering Physician: Hira Newman Referring Physician: Hoang Marquez M.D. Performed By: Aparna Dutton RDCS
== END | disposition home or self-care (01) ==
PROVIDERS: PCP Family Medicine; Referring Provider Internal Medicine Cardiovascular Disease; Visit Provider Internal Medicine Cardiovascular Disease
DX: I50.22 Chronic systolic (congestive) heart failure (principal); Z95.1 Presence of aortocoronary bypass graft; I25.5 Ischemic cardiomyopathy; Z95.810 Presence of automatic (implantable) cardiac defibrillator
CPT/HCPCS: 93306

== ENCOUNTER 2024-10-18 11:29 | Emergency (ER) | payer MEDICARE, SELFPAY ==
[2024-10-18 11:30] VITALS: BP 130/90; PULSE 60; RESP 16; TEMP 36.4; O2SAT 98; BMI 25.9
--- NOTE | 2024-10-18 11:39 | EX.ED.DYSGE1 ---
HPI <KELLI Dunn - Last Filed: 10/18/24 17:12> History of Present Illness Chief Complaint: Lower Extremity Injury Narrative Narrative: Patient is a 78-year-old female with history of ischemic cardiomyopathy,, PAD, hyperlipidemia who presents to the [facility] for ongoing pain to her left leg. Patient states that she is been having pain with her left leg on and off for the last 7 years. Patient states that most of the pain is when she is walking, whenever she rests better. She did see a vascular surgeon, she had a slight blockage however nothing that required surgery. [facility], was walking the bathroom and states that the pain in the left leg was severe and she needed to sit down. She did come by EMS. Denies any fever chills nausea or vomiting peer denies any history of DVT. 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) Nicotine dependence Essential (primary) hypertension Ischemic cardiomyopathy Chronic systolic congestive heart failure Atrioventricular block Old myocardial infarction Atherosclerosis of coronary artery 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 Tobacco abuse Psoriasis Hypercholesteremia Syncope and collapse Hyperlipemia Hypokalemia History of syncope History of sinus bradycardia Home Medications ?Medication ?Instructions ?Recorded ?Last Taken ?Type aspirin 81 mg chewable tablet 81 mg PO DAILY@0800 09/27/16 06/27/20 History nitroglycerin 0.4 mg sublingual 0.4 mg sublingual Q5-15M PRN chest 10/16/22 Unknown Rx tablet pain #25 tabs clopidogrel 75 mg tablet 75 mg PO DAILY #90 tabs 10/21/23 Unknown Rx potassium chloride 10 mEq 20 meq (2 x 10 mEq) PO DAILY #180 10/21/23 Unknown Rx capsule,extended release caps vitamin D3 125 mcg (5,000 1 cap PO DAILY 12/06/23 Unknown History unit)-vitamin K2 100 mcg capsule carvedilol 12.5 mg tablet (Coreg) 12.5 mg PO BID #180 tabs 03/16/24 Unknown Rx furosemide 40 mg tablet 40 mg PO Q OTHER DAY #90 tabs 03/16/24 Unknown Rx lisinopril 20 mg tablet 20 mg PO BID #180 tabs 03/16/24 Unknown Rx magnesium citrate 100 mg capsule 100 mg PO QDAY 07/02/24 Unknown History famotidine 20 mg tablet (Pepcid) 20 mg PO DAILY #30 tabs 10/18/24 Unknown Rx Allergy/AdvReac Type Severity Reaction Status Date / Time No Known Allergies Allergy Verified 10/18/24 11:33 Family History Father CAD (coronary artery disease) Myocardial infarction Brother CAD (coronary artery disease) Myocardial infarction Mother Cancer Surgical History History of electrophysiologic study (03/07/12) Biventricular ICD (implantable cardioverter-defibrillator) in place (08/04/20) History of coronary artery stent placement (03/06/12) H/O coronary artery bypass surgery (04/28/97) Saphenous vein graft to CFX saphenous vein graft to RCA H/O tubal ligation History of left heart catheterization (06/27/20) Social History (Updated 10/18/24 @ 11:34 by Shakira Gaffney) household members: spouse and family housing: house Smoking Status: Current every day smoker tobacco type: cigarettes second hand exposure: Yes alcohol intake: current alcohol intake frequency: holidays/special occasions only substance use type: does not use caffeine: Yes Type: carbonated beverages Number of servings: 4 what type of physical activity do you participate in: none seatbelt use: always do you feel safe at home: Yes ROS <KELLI Dunn - Last Filed: 10/18/24 17:12> ROS ED ROS Narrative Constitutional: Negative for fever, chills, weight loss, weakness Eyes: Negative for vision loss, vision change, double vision ENT: Negative for any sore throat, ear pain, congestion Cardiovascular: Negative for any chest pain, tightness, palpitations Respiratory: Negative for any cough, sputum production, hemoptysis, dyspnea, dyspnea on exertion, orthopnea Gastrointestinal: Negative for any abdominal pain, nausea, vomiting, diarrhea, constipation, blood in stool, blood in vomit : Negative for any urinary frequency, dysuria, retention, blood in urine Muscle skeletal: Negative for any neck pain, back pain. Positive for pain to the left leg Neurological: Negative for any headache, syncope, dizziness Skin: Negative for any rashes, itching, abrasions, lacerations Psychiatric: Negative for any depression, anxiety, stress, suicidal ideation, homicidal ideation Hematologic: Negative for any excessive bruising, easy bleeding EXAM <KELLI Dunn - Last Filed: 10/18/24 17:12> Physical Exam Narrative Exam Narrative: Vital signs reviewed. Extremities: No peripheral edema, no signs of gross trauma or deformity. Active full range of motion of all extremities. Patient has an intact extensor mechanism. Able dorsiflex, plantarflex against resistance. Patient was able to flex and extend at the hip with no difficulty. On my examination, I thought it felt a pulse. We then try to check with a Doppler, could not hear pedal or posterior tibial pulse. Neuro: Cranial nerves II through XII intact, no focal neurological deficits. Skin: Clean dry and intact with no rash, purpura, petechiae, vesicles or pustules. Backs/flank: No CVA tenderness, no midline spinal tenderness, no deformity. Psych: Normal mood and affect. No SI, HI or acute psychosis. Const Vital Signs: 10/18/24 11:30 10/18/24 15:30 Temperature 97.6 F L Temperature Source Oral Pulse Rate 60 58 L Respiratory Rate 16 19 H Blood Pressure 130/90 H 145/88 H Blood Pressure Mean 103 107 Pulse Ox 98 98 Positive well nourished and well developed General Appearance ED: well developed <Dr. Dina Camp DO - Last Filed: 10/22/24 13:57> Physical Exam Const Vital Signs: 10/18/24 11:30 10/18/24 15:30 Temperature 97.6 F L Temperature Source Oral Pulse Rate 60 58 L Respiratory Rate 16 19 H Blood Pressure 130/90 H 145/88 H Blood Pressure Mean 103 107 Pulse Ox 98 98 MDM <KELLI Dunn - Last Filed: 10/18/24 17:12> MDM Lab Data Labs: Laboratory Results - last 24 hr 10/18/24 10/18/24 11:39 14:42 WBC 7.9 RBC 4.12 L Hgb 13.0 Hct 37.6 MCV 91.3 MCH 31.6 MCHC 34.6 RDW Std Deviation 45.2 H RDW Coeff of Bao 13.5 Plt Count 170 MPV 11.7 Immature Gran % (Auto) 0.300 Neut % (Auto) 62.8 Lymph % (Auto) 30.5 [place] % (Auto) 4.4 Eos % (Auto) 1.5 Baso % (Auto) 0.5 Absolute Neuts (auto) 5.0 Absolute Lymphs (auto) 2.42 Nucleated RBC % 0 PT 13.1 INR 1.0 Sodium 138 Potassium 4.4 Chloride 102 Carbon Dioxide 22.2 Anion Gap 14 BUN 22 H Creatinine 1.16 Estim Creat Clear Calc 35.76 L Est GFR (MDRD) Non-Af 49 L BUN/Creatinine Ratio 19.1 Glucose 120 H Calcium 9.6 Total Creatine Kinase 48 Urine Color Yellow Urine Clarity Clear Urine pH 6.0 Ur Specific [place] 1.010 Urine Protein 15 H Urine Glucose (UA) Normal Urine Ketones Negative Urine Occult Blood 10 H Urine Nitrite Negative Urine Bilirubin Negative Urine Urobilinogen Normal Ur Leukocyte Esterase 100 H Urine RBC 0-5 SEEN Urine WBC 0-5 SEEN Ur Squamous Epith Cells 0-5 SEEN Urine Bacteria 1+ Urine Mucus 0 SEEN Radiography Diagnostic Testing: Clinical Impression(s) from Imaging Studies Abdomen/Pelvis CTA 10/18/24 12:03 IMPRESSION: Moderate (60%) aortic stenosis. No acute or chronic mesenteric ischemia renal artery stenosis. Severely diseased iliac arteries with an occluded proximal left common iliac artery. Severe (80%) stenosis of the right common femoral artery. Moderately diseased right superficial femoral artery with severe (80%) stenoses proximally and at the adductor canal. Severe (80%) stenosis of the right popliteal artery. Single-vessel runoff on the right via the right peroneal artery with an occluded right anterior and Pitocin posterior tibial arteries. Severe (80%) stenosis of the left common femoral artery. Occluded left superficial femoral artery which with reconstitution at the adductor canal. Severely diseased left popliteal artery. Two-vessel runoff to the left with an occluded left proximal left posterior tibial artery. Reading Location: [id number] Treatment and Re-Evaluation :: Differential diagnosis includes however is not limited to: DVT, acute on chronic pain, PAD, muscle strain, ischemic limb Patient appears generally well, vital signs are stable, patient is nontoxic-appearing. To the emergency department for ongoing pain to the left leg. Is been getting worse over the last several months. Patient had decreased pulses, could not hear them with Dopple. Patient received a CTA of the abdomen pelvis with runoffs. Patient would not ambulating is in no distress. Time is 4:28 PM the patient's laboratory values were normal, the patient's urinalysis showed 1+ bacteria 0-5 white blood cells, 100 leukocytes, negative nitrates. This was sent for culture. I have been on the phone several times with the CAT scan regarding the patient's read of the left lower extremity. The composite bond technician is now calling the management system of the radiology team. Patient CT scan shows moderate 60% aortic stenosis. Severely diseased iliac arteries with an occluded proximal left common iliac artery. Severe 80% stenosis of the right common femoral artery. Single-vessel runoff of the right knee via the right peroneal artery with an occluded right anterior to the pitocin posterior tibial arteries. Severe 80% stenosis the left common femoral artery. Occluded left superficial femoral artery which with reconstituted at the adductor canal. Severely diseased left popliteal artery. Two-vessel runoff to the left with an occluded left proximal left posterior tibial artery. I did speak with Dr. Dc he will see her outpatient. I spoke with the patient the patient's family. They are agreeable. Patient did tell me that she is no longer taking the Plavix she will restart this and she will also be given a Pepcid because it is causing her to have GERD. Patient will follow-up outpatient. <Dr. Dina Camp, DO - Last Filed: 10/22/24 13:57> [facility] Lab Data Labs: Laboratory Results - last 24 hr 10/18/24 10/18/24 11:39 14:42 WBC 7.9 RBC 4.12 L Hgb 13.0 Hct 37.6 MCV 91.3 MCH 31.6 MCHC 34.6 RDW Std Deviation 45.2 H RDW Coeff of Bao 13.5 Plt Count 170 MPV 11.7 Immature Gran % (Auto) 0.300 Neut % (Auto) 62.8 Lymph % (Auto) 30.5 [place] % (Auto) 4.4 Eos % (Auto) 1.5 Baso % (Auto) 0.5 Absolute Neuts (auto) 5.0 Absolute Lymphs (auto) 2.42 Nucleated RBC % 0 PT 13.1 INR 1.0 Sodium 138 Potassium 4.4 Chloride 102 Carbon Dioxide 22.2 Anion Gap 14 BUN 22 H Creatinine 1.16 Estim Creat Clear Calc 35.76 L Est GFR (MDRD) Non-Af 49 L BUN/Creatinine Ratio 19.1 Glucose 120 H Calcium 9.6 Total Creatine Kinase 48 Urine Color Yellow Urine Clarity Clear Urine pH 6.0 Ur Specific [place] 1.010 Urine Protein 15 H Urine Glucose (UA) Normal Urine Ketones Negative Urine Occult Blood 10 H Urine Nitrite Negative Urine Bilirubin Negative Urine Urobilinogen Normal Ur Leukocyte Esterase 100 H Urine RBC 0-5 SEEN Urine WBC 0-5 SEEN Ur Squamous Epith Cells 0-5 SEEN Urine Bacteria 1+ Urine Mucus 0 SEEN Radiography Diagnostic Testing: Clinical Impression(s) from Imaging Studies Abdomen/Pelvis CTA 10/18/24 12:03 IMPRESSION: Moderate (60%) aortic stenosis. No acute or chronic mesenteric ischemia renal artery stenosis. Severely diseased iliac arteries with an occluded proximal left common iliac artery. Severe (80%) stenosis of the right common femoral artery. Moderately diseased right superficial femoral artery with severe (80%) stenoses proximally and at the adductor canal. Severe (80%) stenosis of the right popliteal artery. Single-vessel runoff on the right via the right peroneal artery with an occluded right anterior and Pitocin posterior tibial arteries. Severe (80%) stenosis of the left common femoral artery. Occluded left superficial femoral artery which with reconstitution at the adductor canal. Severely diseased left popliteal artery. Two-vessel runoff to the left with an occluded left proximal left posterior tibial artery. Reading Location: [id number] Management Discussion w/another healthcare provider: Director Of Trauma Treatment and Re-Evaluation :: Differential diagnosis includes however is not limited to: DVT, acute on chronic pain, PAD, muscle strain, ischemic limb Patient appears generally well, vital signs are stable, patient is nontoxic-appearing. To the emergency department for ongoing pain to the left leg. Is been getting worse over the last several months. Patient had decreased pulses, could not hear them with Dopple. Patient received a CTA of the abdomen pelvis with runoffs. Patient would not ambulating is in no distress. Time is 4:28 PM the patient's laboratory values were normal, the patient's urinalysis showed 1+ bacteria 0-5 white blood cells, 100 leukocytes, negative nitrates. This was sent for culture. I have been on the phone several times with the CAT scan regarding the patient's read of the left lower extremity. The composite bond technician is now calling the management system of the radiology team. Patient CT scan shows moderate 60% aortic stenosis. Severely diseased iliac arteries with an occluded proximal left common iliac artery. Severe 80% stenosis of the right common femoral artery. Single-vessel runoff of the right knee via the right peroneal artery with an occluded right anterior to the pitocin posterior tibial arteries. Severe 80% stenosis the left common femoral artery. Occluded left superficial femoral artery which with reconstituted at the adductor canal. Severely diseased left popliteal artery. Two-vessel runoff to the left with an occluded left proximal left posterior tibial artery. I did speak with Dr. Dc he will see her outpatient. I spoke with the patient the patient's family. They are agreeable. Patient did tell me that she is no longer taking the Plavix she will restart this and she will also be given a Pepcid because it is causing her to have GERD. Patient will follow-up outpatient. I have personally performed a face to face assessment of the patient and have reviewed the MEKHI Note. I performed a substantive portion of the visit including all aspects of the following. My ross findings include: History is Patient is 78-year-old female with significant vascular and cardiac history as well as ongoing tobacco use presenting with increasing pain of her left leg. She states she has had increased pain that she describes as a deep cramp/ache that has become sharp with minimal exertion. She notes yesterday she had pain at rest but not today. [facility] and walking when the pain became so severe that she had to stop walking and sit down. Patient notes that she remotely is followed with Dr. Jaime, vascular surgery, was told that if she walks for 40 minutes a day her blood flow should stay stable but notes that was a long time ago. On exam patient is well-appearing in no acute distress. Heart regular rate and rhythm. Lungs clear to auscultation. No peripheral edema appreciated. She has a slightly dusky discoloration to her toes but is bilateral and equal. She is able to move her toes. Sensation intact to light touch. We are not able to palpate or find dopplerable DP or PT pulses. She does not have gangrenous changes to her toes however. Concern for progression of peripheral vascular disease/intermittent claudication is at the top of the differential. Physical exam not consistent with cellulitis or infection. Low suspicion for DVT. Blood work as well as CTA with runoff to the lower extremities is obtained. Lab work largely normal with no signs of leukocytosis and a normal lactate. Low suspicion for acute ischemic event. No significant electrolyte abnormalities to explain her pain as well. Renal function her baseline. Patient is found to have severe peripheral arterial disease on CTA. Case discussed with Dr. Dc, vascular surgery on-call. He states that the patient is currently asymptomatic at rest this can follow-up outpatient does not need emergent surgery. Recommends her continuing her Plavix and aspirin. On further discussion it turns out the patient is not actually taking her Plavix because it was irritating her stomach. She will be restarted on this and also started on regular antiacid (Pepcid) to help counteract her GERD. Patient is comfortable this plan of car. We did discuss the need for tobacco cessation as well. Patient given return precautions. Discharged home in stable condition with plans for close outpatient follow-up. Vascular office will reach out to her this week per my discussion with Dr. Dc. Other additions or changes: [None] Discharge Plan Triage Chief Complaint: Lower Extremity Injury ED Midlevel Provider: Nikita Pearson ED Provider: Dina Camp Dx/Rx/DC Orders Clinical Impression: PAD (peripheral artery disease), Acute leg pain, Tobacco use Instructions: Quitting Smoking, Peripheral Angiography, Peripheral Angioplasty, Smoking and PAD, ED Peripheral Artery Disease (PAD) Prescriptions: New famotidine [Pepcid] 20 mg tablet 20 mg PO DAILY Qty: 30 1RF No Action nitroglycerin 0.4 mg tablet, sublingual 0.4 mg SUBLINGUAL Q5-15M PRN (Reason: chest pain) Qty: 25 3RF Rx Instructions: until response; do not exceed 3 doses per event magnesium citrate 100 mg capsule 100 mg PO QDAY vitamin D3-vitamin K2 125 mcg (5,000 unit)-100 mcg capsule 1 cap PO DAILY aspirin 81 MG tablet,chewable 81 mg PO DAILY@0800 clopidogrel 75 mg tablet 75 mg PO DAILY Qty: 90 3RF potassium chloride 10 mEq capsule, extended release 20 meq PO DAILY Qty: 180 3RF lisinopril 20 mg tablet 20 mg PO BID Qty: 180 3RF carvedilol [Coreg] 12.5 mg tablet 12.5 mg PO BID Qty: 180 3RF furosemide 40 mg tablet 40 mg PO Q OTHER DAY Qty: 90 3RF Primary Care Provider: Chris Marquez Referrals: Crow Dc MD [Med Staff - Active Staff] - Chris Marquez MD [Primary Care Provider] - Activity Restrictions/Additional Instructions: Today you were seen because you are having left leg pain this is likely because you are having intermittent claudication. You are having stenosis which is clogging of your veins and arteries. This is why there is pain when you are ambulating. You will be placed back on your Plavix daily, as well as your baby aspirin. I gave you Pepcid for acid reflux and bloating. You need to call this doctor Dao on Saturday to have a follow-up appointment. If the pain becomes out of control please return back to the emergency department. You need to attempt to decrease your tobacco use. Print Language: Armenian Disposition Disposition: Home, Self Care Discharge Date/Time: 10/18/24 17:20
--- NOTE | 2024-10-18 12:03 | CT_ITS ---
PROCEDURE: CTA ABD W/RUNOFF W/WO CONTRAST 10/18/2024 REASON FOR EXAM: LEFT LEG PAIN/ISCHMEIA TECHNIQUE: CTA imaging of the abdomen and pelvis with intravenous contrast. Multiplanar and multisequence images were obtained. 3D post processing, 3D reconstructions, Maximum intensity projection (MIPs) Volume rendering and Shaded surface rendering was provided. One or more dose reduction techniques were used (e.g., Automated exposure control, adjustment of the mA and/or kV according to patient size, use of iterative reconstruction technique). FINDINGS: Aorta: Moderate amount of peripheral calcified and noncalcified plaque producing moderate (60%) stenosis of the infrarenal abdominal aorta between the renal artery origin and the inferior mesenteric artery origin. Iliac Arteries: Large amount of plaque within the iliac arteries producing a severe (80%) stenosis of the right common iliac artery common right internal iliac artery, and right external iliac artery. Occluded proximal left common iliac artery with reconstitution at the bifurcation. Severely diseased external and internal iliac arteries with a proximally 80%) stenosis. Celiac: Widely patent SMA: Widely patent JORDAN : Widely patent. Right Renal: Single right renal artery without severe stenosis. Left Renal: Single left renal artery without severe stenosis. Other Findings: Severe (80%) stenosis of the right common femoral artery. Patent profundus femoris artery. Moderately diseased right superficial femoral artery with severe (80%) stenosis proximally and at the adductor canal. Severe (80%) stenosis of the proximal right popliteal artery. Single-vessel runoff of the right [place] of the right peroneal artery with an occluded proximal right anterior tibial artery and posterior tibial artery. Severe (80%) stenosis of the left common femoral artery. Patent profunda femoris artery. Occluded left superficial femoral artery with reconstitution at the adductor canal. Severely disease left popliteal artery. Two-vessel runoff on the left with an occluded proximal left posterior tibial artery. CT/CTA Abd w/Runoff W/WO Contrast IMPRESSION: Moderate (60%) aortic stenosis. No acute or chronic mesenteric ischemia renal artery stenosis. Severely diseased iliac arteries with an occluded proximal left common iliac ar moo. Severe (80%) stenosis of the right common femoral artery. Moderately diseased right superficial femoral artery with severe (80%) stenoses proximally and at the adductor canal. Severe (80%) stenosis of the ri ght popliteal artery. Single-vessel runoff on the right via the right peroneal artery with an occluded right anterior and Pitocin posterior tibial arteries. Severe (80%) stenosis of the left common femoral artery. Occluded left superfi cial femoral artery which with reconstitution at the adductor canal. Severely diseased left popliteal artery. Two-vessel runof f to the left with an occluded left proximal left posterior tibial artery. Reading Location: [id number]
[2024-10-18 12:12] LABS: Absolute Lymphocyte Count 2.42 X10^3/uL (0.83-4.51); Basophil# 0.04 X10^3/uL; Basophil% 0.5 % (0-1); Eosinophil# 0.12 X10^3/uL; Eosinophils% 1.5 % (0-5); Hematocrit 37.6 % (37-47); Lymphocyte # 2.42 X10^3/ul (0.83-4.51); Lymphocyte % 30.5 % (19-41); Mean Corp Hgb Conc 34.6 g/dL (32-36); Mean Corpuscular Hgb 31.6 pg (27.0-32.0); Mean Corpuscular Volume 91.3 fL (81-99); Mean Platelet Vol. 11.7 fl (6.2-12.0); Monocyte# 0.35 X10^3/uL; Monocyte% 4.4 % (0-10); NRBC Flagged by Analyzer 0 % (0-5); Neutrophil # 4.98 X10^3/uL (2.7-7.7); Neutrophil % 62.8 % (47-70); Platelet Count 170 K/mm3 (150-450); RBC Distribution Width CV 13.5 % (11.6-14.6); RBC Distribution Width SD 45.2 fl (35.1-43.9); Red Blood Count 4.12 M/mm3 (4.2-5.4); White Blood Count 7.9 K/mm3 (4.4-11.0)
[2024-10-18 12:18] LABS: Prothrombin Time (Protime)PT. 13.1 SECONDS (11.7-14.9)
[2024-10-18 12:51] LABS: Anion Gap 14 (5-15); BUN 22 mg/dL (4-19); BUN/Creat Ratio 19.1 RATIO (10-20); CPK Total, Creatine Kinase 48 U/L (24-195); Calcium,Total 9.6 mg/dL (7.6-11.0); Carbon Dioxide 22.2 mmol/L (21.0-32.0); Chloride 102 mmol/L (98-108); Creatinine, Serum 1.16 mg/dL (0.70-1.20); EST Glomerular Filtration Rate 49 (>60); Estimated Creatinine Clearance 35.76 ml/min (50-250); Glucose 120 mg/dL (70-99); Potassium 4.4 mmol/L (3.3-5.1); Sodium Level 138 mmol/L (133-145)
--- NOTE | 2024-10-18 14:27 | ED.RN ---
Family members concerned for TIA. Pt had an episode 2 weeks ago where she was awake but wasn't responding. They are also concerned for UTI. Nikita LOCKWOOD aware.
[2024-10-18 14:44] LABS: Mucous, Urine 0 SEEN /hpf (<or=2+)
[2024-10-18 14:50] LABS: Color, Urine Yellow (Yellow); Glucose, Dipstick Normal (Normal); Ketone-Dipstick Negative (Negative); Leukocyte Esterase-Dipstick 100 /ul (Negative); Nitrite-Dipstick Negative (Negative); Occult Blood-Urine 10 /ul (Negative); Protein-Dipstick 15 mg/dl (Negative); Urine Bilirubin Dipstick Negative (Negative); Urine Clarity Clear (Clear); Urine Urobilinogen Normal (Normal)
[2024-10-18 15:05] LABS: Bacteria 1+ /hpf (None Seen); Red Blood Cells-Urine 0-5 SEEN /hpf (0-5); Squamous Epithelial Cells - UA 0-5 SEEN /hpf (5-10); White Blood Cells 0-5 SEEN /hpf (0-5)
[2024-10-18 15:30] VITALS: BP 145/88; PULSE 58; RESP 19; O2SAT 98
[2024-10-18 17:14] VITALS: BP 145/88; PULSE 58; RESP 19; TEMP 36.6; O2SAT 98
== END 2024-10-18 17:20 | disposition home or self-care (01) ==
PROVIDERS: Nurse Practitioner; Emergency Provider Emergency Medicine; PCP Family Medicine; Visit Provider Emergency Medicine
DX: M79.605 Pain in left leg (principal); I11.0 Hypertensive heart disease with heart failure; I50.22 Chronic systolic (congestive) heart failure; I25.5 Ischemic cardiomyopathy; I70.212 Atherosclerosis of native arteries of extremities with intermittent claudication, left leg; I25.10 Atherosclerotic heart disease of native coronary artery without angina pectoris; E78.00 Pure hypercholesterolemia, unspecified; I25.2 Old myocardial infarction; Z79.82 Long term (current) use of aspirin; Z79.02 Long term (current) use of antithrombotics/antiplatelets; Z79.899 Other long term (current) drug therapy; Z95.810 Presence of automatic (implantable) cardiac defibrillator; Z95.5 Presence of coronary angioplasty implant and graft; Z98.51 Tubal ligation status; F17.210 Nicotine dependence, cigarettes, uncomplicated; X58.XXXA Exposure to other specified factors, initial encounter; Y93.01 Activity, walking, marching and hiking; Y92.22 Religious institution as the place of occurrence of the external cause
CPT/HCPCS: 75635; 80048; 81001; 82550; 85025; 85610; 87086; 87088; 99285; Q9967; A4216

== ENCOUNTER → 2024-11-04 | Outpatient (CLI) | payer MEDICARE, SELFPAY ==
--- NOTE | 2024-11-04 08:27 | ART_ITS ---
Reason For Study Reason For Study: PVD Procedure A bilateral lower extremity continuous wave Doppler with analog waveform analysis,segmental pressures,and ankle brachial indexes without exercise. Left Segmental Pressures Left brachial= 113mmHg. Left high thigh = 53mmHg. Left low thigh = 70mmHg. Left calf = 52mmHg. Left posterior tibial artery = 48mmHg. Left dorsalis pedis artery = 47mmHg. The left dorsalis pedis waveforms are monophasic. The left posterior tibial artery waveforms are monophasic. Right Segmental Pressures Right brachial= 115mmHg. Right high thigh = 83mmHg. Right low thigh = 65mmHg. Right calf = 86mmHg. Right posterior tibial artery = 74mmHg. Right dorsalis pedis artery = 60mmHg. Right digit = 54 mmHg. The right dorsalis pedis waveforms are biphasic. The right posterior tibial artery waveforms are biphasic. Indices The right ankle brachial index by the dorsalis pedis is 0.52. The right ankle brachial index by the posterior tibial artery is 0.64. The right digital-brachial index is 0.47. The left ankle brachial index by the dorsalis pedis is 0.41. The left ankle brachial index by the posterior tibial artery is 0.42. VL/Lower Ext Art Exam w/o Exercis Interpretation Summary Right MARY BETH 0.64, moderate arterial insufficiency. Doppler/PVR waveforms and segm ental pressures reveal aorto-iliac disease. Left MARY BETH 0.42, severe arterial insufficiency. Doppler/PVR waveforms and segment al pressures reveal aorto-iliac disease. Ordering Physician: Crow Dc Referring Physician: Hoang Marquez M.D. Performed By: ARIK KESSLER [facility]
== END | disposition home or self-care (01) ==
PROVIDERS: PCP Family Medicine; Referring Provider Surgery Trauma Surgery; Visit Provider Surgery Trauma Surgery
DX: I70.222 Atherosclerosis of native arteries of extremities with rest pain, left leg (principal)
CPT/HCPCS: 93923

== ENCOUNTER 2024-11-12 15:11 | Emergency (ER) | payer MEDICARE, SELFPAY ==
[2024-11-12 15:12] VITALS: BP 115/60; PULSE 59; RESP 16; TEMP 36.7; O2SAT 100; BMI 24.8
--- NOTE | 2024-11-12 15:38 | ED.VIS.LOWEX ---
HPI History of Present Illness Chief Complaint: Lower Extremity Injury Informant: patient Narrative Narrative: 79-year-old female. History of peripheral artery disease senting to the emergency room with left leg pain. Patient notes worsening pain of the left leg especially last night today. She states that she is scheduled for surgery with Dr. Dc in 6 days. She states that she called them today and was advised to come to emergency if she could not tolerate the pain. She notes that she is on Plavix and aspirin. She notes no change in the color in the leg. She denies any open wounds on the leg. 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) Nicotine dependence Essential (primary) hypertension Ischemic cardiomyopathy Chronic systolic congestive heart failure Atrioventricular block Old myocardial infarction Atherosclerosis of coronary artery 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 Tobacco abuse Psoriasis Hypercholesteremia Syncope and collapse Hyperlipemia Hypokalemia History of syncope History of sinus bradycardia Home Medications ?Medication ?Instructions ?Recorded ?Last Taken ?Type aspirin 81 mg chewable tablet 81 mg PO DAILY@0800 blood thinner 09/27/16 06/27/20 History nitroglycerin 0.4 mg sublingual 0.4 mg sublingual Q5-15M PRN chest 10/16/22 Unknown Rx tablet pain #25 tabs potassium chloride 10 mEq 20 meq (2 x 10 mEq) PO DAILY 10/21/23 Unknown Rx capsule,extended release supplement #180 caps vitamin D3 125 mcg (5,000 1 cap PO DAILY supplement 12/06/23 Unknown History unit)-vitamin K2 100 mcg capsule carvedilol 12.5 mg tablet (Coreg) 12.5 mg PO BID bp #180 tabs 03/16/24 Unknown Rx lisinopril 20 mg tablet 20 mg PO BID bp #180 tabs 03/16/24 Unknown Rx clopidogrel 75 mg tablet 75 mg PO DAILY blood thinner #90 10/27/24 Unknown Rx tabs atorvastatin 80 mg tablet 80 mg PO .qd cholesterol 11/02/24 Unknown History calcium carbonate 500 1 - 2 tab PO .as directed PRN 11/02/24 Unknown History mg-simethicone 20 mg chewable reflux tablet famotidine 20 mg tablet 20 mg PO .qd reflux 11/02/24 Unknown History Held on 11/02/24. Instructions: pt not taking - using tums furosemide 40 mg tablet 40 mg PO .q day dieretic 11/02/24 Unknown History magnesium sulfate ea topical .2-3 times a day cramps 11/02/24 Unknown History Allergy/AdvReac Type Severity Reaction Status Date / Time No Known Allergies Allergy Verified 11/12/24 15:12 Family History Father CAD (coronary artery disease) Myocardial infarction Brother CAD (coronary artery disease) Myocardial infarction Mother Cancer Surgical History History of electrophysiologic study (03/07/12) Biventricular ICD (implantable cardioverter-defibrillator) in place (08/04/20) History of coronary artery stent placement (03/06/12) H/O coronary artery bypass surgery (04/28/97) Saphenous vein graft to CFX saphenous vein graft to RCA H/O tubal ligation History of left heart catheterization (06/27/20) Social History household members: spouse and family housing: house Smoking Status: Heavy Smoker (>10/day) second hand exposure: Yes alcohol intake: current alcohol intake frequency: holidays/special occasions only substance use type: does not use caffeine: Yes Type: carbonated beverages Number of servings: 4 what type of physical activity do you participate in: none seatbelt use: always do you feel safe at home: Yes ROS ROS ED Constitutional Constitutional ED: Denies chills or weight loss Eyes Eyes: Denies change in vision or diplopia ENT ENT ED: Denies ear pain, rhinorrhea or sore throat Cardiovascular Cardiovascular: Denies chest pain, orthopnea, palpitations or racing heartbeat Respiratory/Chest Respiratory/Chest: Denies cough, dyspnea or orthopnea Gastrointestinal Gastrointestinal: Denies abdominal pain, diarrhea, nausea or vomiting Genitourinary Genitourinary ED: Denies dysuria, hematuria or urinary frequency Musculoskeletal Musculoskeletal: Reports other Details: See history of present illness ; Denies arthralgias or myalgias Integumentary Denies abscess or rash Neurologic Neurologic: Denies headache(s) or weakness Psychiatric Psychiatric: Denies anxiety, depression, suicidal ideation or suicidal thoughts Endocrine Endocrinology: Denies polydipsia, polyphagia or polyuria Allergic/Immunologic Allergic/Immunologic ED: Denies mouth swelling, tongue swelling or urticaria EXAM Physical Exam Narrative Exam Narrative: Patient appears relatively comfortable sitting on the bed. Const Vital Signs: 11/12/24 15:12 Temperature 98.0 F Temperature Source Oral Pulse Rate 59 L Respiratory Rate 16 Blood Pressure 115/60 Blood Pressure Mean 78 Pulse Ox 100 Oxygen Delivery Method Room Air Positive well nourished and well developed General Appearance ED: well developed HEENT Reports normocephalic, head/scalp atraumatic and moist mucous membranes Eyes PERRL and EOMs intact bilaterally Neck no lymphadenopathy, supple and no JVD Resp normal respiratory effort and clear to auscultation bilaterally Cardio regular rate, regular rhythm and no murmurs GI normal to inspection, nondistended, normoactive bowel sounds and non-tender Palpation: soft Back/Spine no CVA tenderness and normal ROM Extremity normal to inspection Extremity Narrative: I do not appreciate any discoloration of the legs. The toes are still pink. General Extremety ED: Negative for edema General Extremity: Negative for edema Neuro oriented x3 and CN's II-XII intact bilaterally Sensorium / Orientation: alert Motor Exam: strength 5/5 throughout Psych mental status grossly normal Mood & Affect: Negative for depressed or tearful Skin no rashes or lesions noted and no wounds MDM MDM MDM Narrative Medical decision making narrative: Differential diagnosis includes but not limited to peripheral vascular disease claudication acute ischemia DVT I spoke with the patient's vascular surgeon Dr. Dc. We do not feel that the patient needs to be admitted acutely for this. The toes are still pink and she is recently comfortable at this time. She is looking mostly for pain management which I am active write her some pain medication. Patient would like to be cautious with pain medicine but at the same time would like to be comfortable and try to get some sleep at night. I will write her for some oxycodone. She is to have surgery in 6 days. Continue to hydrate. History & Record Review Discussion w/independent historian: Patient Additional record(s) reviewed:: Prior outpatient record and Prior labs Management Discussion w/another healthcare provider: Sales Engagement Executive (Dr. Dc (vascular surgery)) Discharge Plan Triage Chief Complaint: Lower Extremity Injury ED Provider: Darryl Quinones Dx/Rx/DC Orders Prescriptions: No Action nitroglycerin 0.4 mg tablet, sublingual 0.4 mg SUBLINGUAL Q5-15M PRN (Reason: chest pain) Qty: 25 3RF Rx Instructions: until response; do not exceed 3 doses per event vitamin D3-vitamin K2 125 mcg (5,000 unit)-100 mcg capsule 1 cap PO DAILY aspirin 81 MG tablet,chewable 81 mg PO DAILY@0800 magnesium sulfate Ointment topical .2-3 times a day atorvastatin 80 mg tablet 80 mg PO .qd Patient Comments: [NO ORIGINAL SIG] famotidine 20 mg tablet 20 mg PO .qd Patient Comments: [NO ORIGINAL SIG] calcium carbonate-simethicone 500-20 mg tablet,chewable 1 - 2 tab PO .as directed PRN (Reason: reflux) furosemide 40 mg tablet 40 mg PO .q day potassium chloride 10 mEq capsule, extended release 20 meq PO DAILY Qty: 180 3RF lisinopril 20 mg tablet 20 mg PO BID Qty: 180 3RF carvedilol [Coreg] 12.5 mg tablet 12.5 mg PO BID Qty: 180 3RF clopidogrel 75 mg tablet 75 mg PO DAILY Qty: 90 3RF Primary Care Provider: Chris Marquez Referrals: Chris Marquez MD [Primary Care Provider] - Print Language: [place] Zealander
[2024-11-12 16:00] VITALS: BP 130/70; PULSE 81; RESP 16; TEMP 36.6; O2SAT 95
== END 2024-11-12 16:00 | disposition home or self-care (01) ==
PROVIDERS: Emergency Provider Emergency Medicine; PCP Family Medicine; Visit Provider Emergency Medicine
DX: I73.9 Peripheral vascular disease, unspecified (principal); I11.0 Hypertensive heart disease with heart failure; I50.22 Chronic systolic (congestive) heart failure; E78.00 Pure hypercholesterolemia, unspecified; F17.200 Nicotine dependence, unspecified, uncomplicated; I25.10 Atherosclerotic heart disease of native coronary artery without angina pectoris; I25.2 Old myocardial infarction; Z79.899 Other long term (current) drug therapy; Z79.82 Long term (current) use of aspirin; Z79.02 Long term (current) use of antithrombotics/antiplatelets; Z45.02 Encounter for adjustment and management of automatic implantable cardiac defibrillator; Z95.5 Presence of coronary angioplasty implant and graft; Z98.51 Tubal ligation status
CPT/HCPCS: 99282

== ENCOUNTER 2024-11-17 13:22 | Inpatient (IN) | payer MEDICARE, SELFPAY ==
--- NOTE | 2024-11-04 08:27 | EKG12_ITS ---
Test Reason : PREOP Blood Pressure : */* mmHG Vent. Rate : 60 BPM Atrial Rate : 60 BPM P-R Int : 94 ms QRS Dur : 150 ms QT Int : 504 ms P-R-T Axes : 95 65 103 degrees QTcB Int : 504 ms AV sequential or dual chamber electronic pacemaker Confirmed by Akin Carbajal ([id number]), society editor LURDES DOVER ([id number]) on 11/05/2024 9:37:15 AM Referred By: Crow Dc Confirmed By: Akin Carbajal
--- NOTE | 2024-11-04 12:11 | PAT.ANESEVAL ---
Pre-Assessment Diagnosis/Proposed Procedure Planned Operative Procedure(s): (B) Bilateral Femoral Endarterectomy, Fem-Fem Bypass, Right Iliac angioplasty stent, Bilateral Sartorius Flaps Anesthesia History Anesthesia History - transportation engineer: Anesthesia History - transportation engineer Hx Hospitalization No 11/02/24 14:00 Any Problems With Anesthesia No 11/02/24 14:00 Cholinesterase deficiency No 11/02/24 14:00 You/Your Family Experience No 11/02/24 14:00 fever (hyperthermia) with Relationship Recent Exposure to Contagious Disease Does patient have nerve No 11/02/24 14:00 stimulator Patient instructed to have device shut off --Does patient have Pacemaker or ICD? When Was Last Pacemaker Check QUESTION #4 FULL TEXT: You/Your Family Experience fever (hyperthermia) with Anesthesia Last Oral Intake Last Oral intake: Last Oral Intake NPO since Meds taken in AM with sips of water? Meds patient instructed to take am of surgery PONV PONV - transportation engineer: PONV - transportation engineer Female Yes 11/02/24 14:00 HX of Motion Sickness No 11/02/24 14:00 HX of N/V After Surgery No 11/02/24 14:00 Non-Smoker No 11/02/24 14:00 Duration of Surgery greater Yes 11/02/24 14:00 than 60 minutes Number of Risk Factors 2 11/02/24 14:00 PONV Score Moderate Risk 11/02/24 14:00 Height & Weight Height & Weight: Anesthesia: Height & Weight Height 5 ft 2 in 10/18/24 11:30 Respiratory Assessment Respiratory Assessment - transportation engineer: Respiratory Tract Infection Hx - transportation engineer Hx Respiratory Tract Infection No 11/02/24 14:00 STOP Sleep Apnea STOP Sleep Apnea - transportation engineer: STOP Sleep Apnea - transportation engineer Hx Hypertension Yes 11/02/24 14:00 Hx Sleep Apnea No 11/02/24 14:00 CPAP BIPAP Do you snore loudly (louder No 11/02/24 14:00 than talking or can be heard Do you often feel tired/ No 11/02/24 14:00 fatigued/ sleepy during daytime? Has anyone observed you stop No 11/02/24 14:00 breathing during sleep? STOP Results Negative 11/02/24 14:00 QUESTION #5 FULL TEXT : Do you snore loudly (louder than talking or can be heard through closed doors)? Tobacco Use History Tobacco Use History - transportation engineer: Tobacco Use History - transportation engineer Tobacco Use Cigarettes 12/13/20 14:23 Smoking Status Heavy Smoker (>10/day) 11/02/24 14:00 Hx Tobacco Use Yes 11/02/24 14:00 Years Smoking Packs Smoked per Day Smoking Cessation Date was Yes - quit smoking within 15 11/02/24 14:00 within the last 15 years years Hx Smoking Cessation Date Hx Smoking Cessation Yes: 10-18-24 11/02/24 14:00 Counseling Hematologic Medial History Hematologic Hx - transportation engineer: Hematologic Medical Hx - family services assistant Hx of Blood Transfusion Yes 11/02/24 14:00 Hx of Transfusion in last 3 No 11/02/24 14:00 Months Date of Last Transfusion (if within last 3 months) Ever experience any problems No 11/02/24 14:00 with transfusion(s)? Specify any problems Hx of Preganancy in last 3 No 11/02/24 14:00 Months Nurse Filling Out Transfusion JZOLLINGE 11/02/24 14:00 & Questions: Date: 11/02/24 11/02/24 14:00 Time: 14:03 11/02/24 14:00 Patient unable to answer at this time (ie. 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) Nicotine dependence Essential (primary) hypertension Ischemic cardiomyopathy Chronic systolic congestive heart failure Atrioventricular block Old myocardial infarction Atherosclerosis of coronary artery 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 Tobacco abuse Psoriasis Hypercholesteremia Syncope and collapse Hyperlipemia Hypokalemia History of syncope History of sinus bradycardia Home Medications ?Medication ?Instructions ?Recorded ?Last Taken ?Type aspirin 81 mg chewable tablet 81 mg PO DAILY@0800 blood thinner 09/27/16 06/27/20 History nitroglycerin 0.4 mg sublingual 0.4 mg sublingual Q5-15M PRN chest 10/16/22 Unknown Rx tablet pain #25 tabs potassium chloride 10 mEq 20 meq (2 x 10 mEq) PO DAILY 10/21/23 Unknown Rx capsule,extended release supplement #180 caps vitamin D3 125 mcg (5,000 1 cap PO DAILY supplement 12/06/23 Unknown History unit)-vitamin K2 100 mcg capsule carvedilol 12.5 mg tablet (Coreg) 12.5 mg PO BID bp #180 tabs 03/16/24 Unknown Rx lisinopril 20 mg tablet 20 mg PO BID bp #180 tabs 03/16/24 Unknown Rx clopidogrel 75 mg tablet 75 mg PO DAILY #90 tabs 10/27/24 Unknown Rx atorvastatin 80 mg tablet 80 mg PO .qd cholesterol 11/02/24 Unknown History calcium carbonate 500 tab PO .as directed PRN reflux 11/02/24 Unknown History mg-simethicone 20 mg chewable tablet famotidine 20 mg tablet mg reflux 11/02/24 Unknown History Held on 11/02/24. Instructions: pt not taking - using tums furosemide 40 mg tablet 40 mg PO .q day dieretic 11/02/24 Unknown History magnesium sulfate ea topical .2-3 times a day cramps 11/02/24 Unknown History Allergy/AdvReac Type Severity Reaction Status Date / Time No Known Allergies Allergy Verified 11/02/24 13:36 Family History Father CAD (coronary artery disease) Myocardial infarction Brother CAD (coronary artery disease) Myocardial infarction Mother Cancer Surgical History History of electrophysiologic study (03/07/12) Biventricular ICD (implantable cardioverter-defibrillator) in place (08/04/20) History of coronary artery stent placement (03/06/12) H/O coronary artery bypass surgery (04/28/97) Saphenous vein graft to CFX saphenous vein graft to RCA H/O tubal ligation History of left heart catheterization (06/27/20) Social History household members: spouse and family housing: house Smoking Status: Heavy Smoker (>10/day) second hand exposure: Yes alcohol intake: current alcohol intake frequency: holidays/special occasions only substance use type: does not use caffeine: Yes Type: carbonated beverages Number of servings: 4 what type of physical activity do you participate in: none seatbelt use: always do you feel safe at home: Yes Audit: Pertinent Findings Pertinent Findings EKG Perinent findings: 07/19/2020. Sinus rhythm. First-degree AV block. Old anterior infarct. Nonspecific T wave abnormality. Echo (EF%) pertinent findings: 12/30/2023. EF 40%. Pulmonary artery pressure equals 38 mmHg. Heart catheterization pertinent findings: 06/27/2020. Known triple-vessel coronary artery disease. 2 out of 3 grafts occluded but patency of resighini circumflex and right coronary artery. Patent VERNON to LAD. Implantable defibrillator present. Continue medications based on above. Consult pertinent findings: Cardiology 07/02/2024. History of coronary artery bypass surgery. Continue current therapy. Biventricular ICD. Right ventricular paced at 60 bpm. Continue current therapy. Ischemic cardiomyopathy. Chronic. EF 40%. Continue current therapy. Karvea diet loll. Lasix. Lisinopril. Hypertension. Claudication. Chronic. Recommendation Anesthesia Recommendation Anesthesia recommendation: OPTIMIZED for anesthesia
[2024-11-17] VITALS (21 sets, daily range): BP systolic 91–133; BP diastolic 40–67; PULSE 58–67; RESP 14–20; TEMP 36.2–37.1; O2SAT 95–100; BMI 24.4; BMI 25.2
[2024-11-17] MEDS: Lactated Ringers 1,000 ML 15 ML IV (06:20)
--- NOTE | 2024-11-17 06:30 | RAD_ITS ---
PROCEDURE: FLUOROSCOPY 1 HR OR LESS 11/17/2024 REASON FOR EXAM: Right iliac stenting. TECHNIQUE: Standing AP view(s) of the thoracic and lumbar spine.. 12 minutes and 29 seconds of fluoroscopy. 171.28 mGy. COMPARISON: None FINDINGS: Intraoperative fluoroscopic services provided for stenting. RAD/Fluoroscopy 1 Hr or Less IMPRESSION: Intraoperative fluoroscopic services provided for right common iliac stenting. Reading Location: [facility]
--- NOTE | 2024-11-17 06:52 | PCM.PRE.AN2 ---
ASA Classification* ASA Classification ASA Classification: 3 Assessment & Plan Anesthesia* Anesthesia Assessment Anesthesia Assessment: Discussed sedation and/or anesthesia options, risks, benefits, and alternatives with patient/parents/legal guardian/POA. Questions invited. The patient/parents/legal guardian/POA seems to understand and agrees to proceed with anesthesia plan. Reviewed the physical assessment, medical history, allergy history and patient home medications list prior to surgery/procedure/anesthetic and documented any changes. Performed airway and anesthesia risk assessments. Anesthesia Type Anesthesia Type: General History Source History Obtained from:: Patient and Chart Anesthesia Focused Assessment* Temperature: 97.4 F Pulse Rate: 58 Blood Pressure: 109/67 Respiratory Rate: 16 Pulse Ox: 96 Oxygen Delivery Method: Room Air Airway Assessment Mouth opens: >3 cm Mallampati Score: III Teeth Condition: Chipped/Broken (Multiple broken and chipped teeth.) and Missing (Multiple missing teeth. Rest are tight.) Neck Range of motion (ROM): Full ROM Focused Labs Anesthesia Preop lab: CBC WBC 7.9 K/mm3 (4.4-11.0) 10/18/24 11:39 10/18/24 RBC 4.12 M/mm3 (4.2-5.4) L 10/18/24 11:39 10/18/24 Hgb 13.0 g/dL (12.0-15.0) 10/18/24 11:39 10/18/24 Hct 37.6 % (37-47) 10/18/24 11:39 10/18/24 Plt Count 170 K/mm3 (150-450) 10/18/24 11:39 10/18/24 CHEMISTRY Potassium 4.4 mmol/L (3.3-5.1) 10/18/24 11:39 10/18/24 Sodium 138 mmol/L (133-145) 10/18/24 11:39 10/18/24 Magnesium 2.1 mg/dL (1.6-2.6) 04/29/23 11:50 04/29/23 BUN 22 mg/dL (4-19) H 10/18/24 11:39 10/18/24 Creatinine 1.16 mg/dL (0.70-1.20) 10/18/24 11:39 10/18/24 Glucose 120 mg/dL (70-99) H 10/18/24 11:39 10/18/24 TSH 2.18 uIU/mL (0.358-3.74) 02/09/19 15:49 02/09/19 COAG PT 13.1 SECONDS (11.7-14.9) 10/18/24 11:39 10/18/24 Pre-Assessment Diagnosis/Proposed Procedure Planned Operative Procedure(s): (B) Bilateral Femoral Endarterectomy, Fem-Fem Bypass, Right Iliac angioplasty stent, Bilateral Sartorius Flaps Anesthesia History Anesthesia History - cloth neutralizer: Anesthesia History - cloth neutralizer Hx Hospitalization No 11/02/24 14:00 Any Problems With Anesthesia No 11/02/24 14:00 Cholinesterase deficiency No 11/02/24 14:00 You/Your Family Experience No 11/02/24 14:00 fever (hyperthermia) with Relationship Recent Exposure to Contagious No 11/17/24 06:22 Disease Does patient have nerve No 11/02/24 14:00 stimulator Patient instructed to have device shut off --Does patient have Pacemaker Yes 11/17/24 06:22 or ICD? When Was Last Pacemaker Check QUESTION #4 FULL TEXT: You/Your Family Experience fever (hyperthermia) with Anesthesia Last Oral Intake Last Oral intake: Last Oral Intake NPO since 20:00 11/17/24 06:22 Meds taken in AM with sips of Yes 11/17/24 06:22 water? Meds patient instructed to plavix, asa, coreg 11/17/24 06:22 take am of surgery PONV PONV - cloth neutralizer: PONV - cloth neutralizer Female Yes 11/02/24 14:00 HX of Motion Sickness No 11/02/24 14:00 HX of N/V After Surgery No 11/02/24 14:00 Non-Smoker No 11/02/24 14:00 Duration of Surgery greater Yes 11/02/24 14:00 than 60 minutes Number of Risk Factors 2 11/02/24 14:00 PONV Score Moderate Risk 11/02/24 14:00 Height & Weight Height & Weight: Anesthesia: Height & Weight Height 5 ft 3 in 11/17/24 06:22 Weight: 62.6 kg 11/17/24 06:22 Body Mass Index (BMI) 24.4 11/17/24 06:22 Respiratory Assessment Respiratory Assessment - cloth neutralizer: Respiratory Tract Infection Hx - cloth neutralizer Hx Respiratory Tract Infection No 11/02/24 14:00 STOP Sleep Apnea STOP Sleep Apnea - cloth neutralizer: STOP Sleep Apnea - cloth neutralizer Hx Hypertension Yes 11/02/24 14:00 Hx Sleep Apnea No 11/02/24 14:00 CPAP BIPAP Do you snore loudly (louder No 11/02/24 14:00 than talking or can be heard Do you often feel tired/ No 11/02/24 14:00 fatigued/ sleepy during daytime? Has anyone observed you stop No 11/02/24 14:00 breathing during sleep? STOP Results Negative 11/02/24 14:00 QUESTION #5 FULL TEXT : Do you snore loudly (louder than talking or can be heard through closed doors)? Tobacco Use History Tobacco Use History - cloth neutralizer: Tobacco Use History - cloth neutralizer Tobacco Use Cigarettes 12/13/20 14:23 Smoking Status Heavy Smoker (>10/day) 11/12/24 15:22 Hx Tobacco Use Yes 11/02/24 14:00 Years Smoking Packs Smoked per Day Smoking Cessation Date was Yes - quit smoking within 15 11/02/24 14:00 within the last 15 years years Hx Smoking Cessation Date Hx Smoking Cessation Yes: 10-18-24 11/12/24 15:22 Counseling Any additional information?: Yes Smoking Status: Current every day smoker (Patient did not smoke today.) Hematologic Medial History Hematologic Hx - cloth neutralizer: Hematologic Medical Hx - director of infection prevention Hx of Blood Transfusion Yes 11/02/24 14:00 Hx of Transfusion in last 3 No 11/02/24 14:00 Months Date of Last Transfusion (if within last 3 months) Ever experience any problems No 11/02/24 14:00 with transfusion(s)? Specify any problems Hx of Preganancy in last 3 No 11/02/24 14:00 Months Nurse Filling Out Transfusion JZOLLEVGENY 11/02/24 14:00 & Questions: Date: 11/02/24 11/02/24 14:00 Time: 14:03 11/02/24 14:00 Patient unable to answer at this time (ie. confused, unrespo /Reproduction History /Reproductive History - cloth neutralizer: /Reproductive Hx- cloth neutralizer Hx Now No 11/02/24 14:00 Gestational Age (in weeks): EDC: Hx Hx Para Hx Section SAB No 11/02/24 14:00 Active Medications Active Medications: Current Medications Generic Name Dose Route Start Last Admin Trade Name Freq PRN Reason Stop Dose Admin Cefazolin Sodium 2 gm/ Sodium 110 mls @ 150 mls/hr 11/17/24 07:30 Chloride IV 11/17/24 08:13 INTRAOP ONE Lactated Ringer's 1,000 mls @ 15 mls/hr 11/17/24 06:00 11/17/24 06:20 IV 15 mls/hr .Q48H LATA Administration PFSH Medical History History of echocardiogram History of stress test Cardiology follow-up encounter Wears glasses Gastric reflux Smoker History of pacemaker Hypertension PAD (peripheral artery disease) Atrioventricular node dysfunction Sinus node dysfunction 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) Nicotine dependence Essential (primary) hypertension Ischemic cardiomyopathy Chronic systolic congestive heart failure Atrioventricular block Old myocardial infarction Atherosclerosis of coronary artery 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 Tobacco abuse Psoriasis Hypercholesteremia Syncope and collapse Hyperlipemia Hypokalemia History of syncope History of sinus bradycardia Home Medications ?Medication ?Instructions ?Recorded ?Last Taken ?Type aspirin 81 mg chewable tablet 81 mg PO DAILY@0800 blood thinner 09/27/16 11/17/24 05:00 History nitroglycerin 0.4 mg sublingual 0.4 mg sublingual Q5-15M PRN chest 10/16/22 Unknown Rx tablet pain #25 tabs potassium chloride 10 mEq 20 meq (2 x 10 mEq) PO DAILY 10/21/23 11/16/24 Rx capsule,extended release supplement #180 caps vitamin D3 125 mcg (5,000 1 cap PO DAILY supplement 12/06/23 11/16/24 History unit)-vitamin K2 100 mcg capsule carvedilol 12.5 mg tablet (Coreg) 12.5 mg PO BID bp #180 tabs 03/16/24 11/17/24 05:00 Rx lisinopril 20 mg tablet 20 mg PO BID bp #180 tabs 03/16/24 11/16/24 Rx clopidogrel 75 mg tablet 75 mg PO DAILY blood thinner #90 10/27/24 11/17/24 05:00 Rx tabs atorvastatin 80 mg tablet 80 mg PO QHS cholesterol 11/02/24 Unknown History calcium carbonate 500 1 - 2 tab PO .as directed PRN 11/02/24 Unknown History mg-simethicone 20 mg chewable reflux tablet furosemide 40 mg tablet 40 mg PO DAILY dieretic 11/02/24 11/16/24 History magnesium sulfate 1 ea topical TID PRN PRN cramps 11/02/24 Unknown History oxycodone 5 mg tablet 5 mg PO Q6H PRN pain 5 days #20 11/12/24 11/16/24 Rx tabs Allergy/AdvReac Type Severity Reaction Status Date / Time No Known Allergies Allergy Verified 11/17/24 06:15 Family History Father CAD (coronary artery disease) Myocardial infarction Brother CAD (coronary artery disease) Myocardial infarction Mother Cancer Surgical History History of electrophysiologic study (03/07/12) Biventricular ICD (implantable cardioverter-defibrillator) in place (08/04/20) History of coronary artery stent placement (03/06/12) H/O coronary artery bypass surgery (04/28/97) Saphenous vein graft to CFX saphenous vein graft to RCA H/O tubal ligation History of left heart catheterization (06/27/20) Social History household members: spouse and family housing: house Smoking Status: Heavy Smoker (>10/day) second hand exposure: Yes alcohol intake: current alcohol intake frequency: holidays/special occasions only substance use type: does not use caffeine: Yes Type: carbonated beverages Number of servings: 4 what type of physical activity do you participate in: none seatbelt use: always do you feel safe at home: Yes Review of Systems (Anesthesia) ROS Narrative System reviewed and no additional complaints, except as documented.
--- NOTE | 2024-11-17 07:29 | PCM.HP.BLA ---
History and Physical Allergies No Known Allergies Allergy (Verified 10/18/24 11:33) Medications ?Medication ?Instructions ?Recorded ?Confirmed ?Type aspirin 81 mg chewable tablet 81 mg PO DAILY@0800 09/27/16 10/22/24 History nitroglycerin 0.4 mg sublingual 0.4 mg sublingual Q5-15M PRN chest 10/16/22 10/22/24 Rx tablet pain #25 tabs clopidogrel 75 mg tablet 75 mg PO DAILY #90 tabs 10/21/23 10/22/24 Rx potassium chloride 10 mEq 20 meq (2 x 10 mEq) PO DAILY #180 10/21/23 10/22/24 Rx capsule,extended release caps vitamin D3 125 mcg (5,000 1 cap PO DAILY 12/06/23 10/22/24 History unit)-vitamin K2 100 mcg capsule carvedilol 12.5 mg tablet (Coreg) 12.5 mg PO BID #180 tabs 03/16/24 10/22/24 Rx furosemide 40 mg tablet 40 mg PO Q OTHER DAY #90 tabs 03/16/24 10/22/24 Rx lisinopril 20 mg tablet 20 mg PO BID #180 tabs 03/16/24 10/22/24 Rx magnesium citrate 100 mg capsule 100 mg PO QDAY 07/02/24 10/22/24 History Is last menstrual period known: No Post menopausal: Yes Patient : No Have you fallen in the past year?: Yes PFSH Medical History PAD (peripheral artery disease) Atrioventricular node dysfunction Sinus node dysfunction 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) Nicotine dependence Essential (primary) hypertension Ischemic cardiomyopathy Chronic systolic congestive heart failure Atrioventricular block Old myocardial infarction Atherosclerosis of coronary artery 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 Tobacco abuse Psoriasis Hypercholesteremia Syncope and collapse Hyperlipemia Hypokalemia History of syncope History of sinus bradycardia Surgical History History of electrophysiologic study (03/07/12) Biventricular ICD (implantable cardioverter-defibrillator) in place (08/04/20) History of coronary artery stent placement (03/06/12) H/O coronary artery bypass surgery (04/28/97) Saphenous vein graft to CFX saphenous vein graft to RCA H/O tubal ligation History of left heart catheterization (06/27/20) Family History Father CAD (coronary artery disease) Myocardial infarctionBrother CAD (coronary artery disease) Myocardial infarctionMother Cancer Social History household members: spouse and family housing: house Smoking Status: Heavy Smoker (>10/day) second hand exposure: Yes alcohol intake: current alcohol intake frequency: holidays/special occasions only substance use type: does not use caffeine: Yes Type: carbonated beverages Number of servings: 4 what type of physical activity do you participate in: none seatbelt use: always do you feel safe at home: Yes HPI HPI HPI: ANA JIMENEZ, is a 78 F who presents to the office today for evaluation of left lower extremity progressive claudication now very short distance and limiting mobility in her home. She has had some degree of symptoms for about 7 years, though things have worsened significantly over the past year. No foot wounds or rest pain, no discrete time when symptoms abruptly worsened. No prior lower extremity revascularization procedures. ROS General General: No weight change, appetite, fatigue, colon cancer, breast cancer or weakness HEENT HEENT: No difficulty swallowing, eye injury, eye surgery, swollen glands or hoarseness Endo Endocrine: No thyroid disease, diabetes mellitus, thyroid cancer, Hair loss, heat intolerance or cold intolerance Skin Skin: No rash or changing moles Musc Musculoskeletal: No back problems, arthritis, rheumatoid arthritis, gout or joint pain Cardio Cardiovascular: Yes pacemaker, heart disease, atrial fibrillation, high blood pressure, heart attack, heart stent, palpitations and shortness of breath with exertion; No murmur or chest pain Psych Psychiatric: No depression, anxiety or hearing voices Resp Respiratory: No shortness of breath, No sleep apnea, No cough, No COPD, No asthma, No emphysema and No wheezing Gastro Gastrointestinal: No abdominal pain, No nausea or vomiting, No diarrhea, No constipation, No blood in stool, No acid reflux, No hemorrhoids, No ulcers, No gallbladder problem and No black,tarry stools Eric Hematologic: No blood thinners, No blood disorders, No bleeding, No anemia and No blood clots Neuro Neurologic: No system reviewed and no additional complaints, except as documented, No as per HPI, No abnormal gait, No abnormal hearing, No abnormal movements, No abnormal speech, No behavioral changes, Yes burning sensations, No confusion, No convulsions, Yes disequilibrium, No dizziness, Yes localized weakness, No frequent falls, No headache(s), Yes lack of coordination, No loss of vision, No memory loss, Yes numbness, No other visual disturbances, Yes radicular pain, No restless legs, No sensory deficit, No syncope, Yes tingling, No tremor(s), No weakness and No other Exam Const General: cooperative, healthy appearing, comfortable, no acute distress and well developed Nutritional Appearance: well nourished Orientation: alert, awake and oriented x3 HENMT Head: normocephalic and atraumatic Ears: hearing grossly normal bilaterally Nose: external nose normal Eyes General: appearance normal, both eyes and all related structures EOM: EOM intact bilaterally Neck Neck: normal visual inspection, full ROM, no lymphadenopathy and trachea midline Thyroid: thyroid normal Lymphatic: no lymphadenopathy noted Resp Effort & Inspection: normal respiratory effort, able to speak in complete sentences, symmetric chest movement, no audible wheezes, not labored, no stridor and no use of accessory muscles Auscultation: clear to auscultation bilaterally Cardio Rate: regular rate Rhythm: regular rhythm Heart Sounds: no murmurs Bruits: no carotid bruits Pulses: brachial pulses present, radial pulses present, popliteal pulses not present, posterior tibial pulses not present and dorsalis pedis pulses not present Skin General: no rashes or lesions noted and no erythema Wounds: no wounds Neuro Cranial Nerves: CN's II-XI intact bilaterally and EOM intact bilaterally Speech: speech normal Gait: normal gait Motor: strength 5/5 throughout Sensory Exam: no sensory deficits noted Extremities Pulses: Diminished: Right Dorsalis Pedis Pulse, Left Dorsalis Pedis Pulse, Right Posterior Tibial Pulse and Left Posterior Tibial Pulse Lower Extremity Edema: None: Bilateral Psych Appearance: grossly normal and well kempt Mental Status: mental status grossly normal Mood: congruent mood Speech and Movement: speech and movement normal Thought Content: normal Judgment: judgment good Coding Level of Care Code Off vis,new,level 4 Diagnoses Atherosclerosis of [place] arteries of extremities with intermittent claudication, left leg I70.212 Assessment and Plan Assessment and Plan (1) Atherosclerosis of [place] arteries of extremities with intermittent claudication, left leg: Status: Chronic Comment: CTA images reviewed, left common iliac occlusion, left common femoral moderate stenosis, left SFA occlusion with popliteal reconstitution right common/external iliac stenosis with calcification, right common femoral calcified severe stenosis, right SFA severe diffuse stenosis Plan: -bilateral femoral endart, right iliac Shockwave/stent, right to left fem-fem with cadaver, sartorius flaps
--- NOTE | 2024-11-17 07:30 | PLAQ_PTH ---
PATIENT: ANA JIMENEZ LOC: ICU U#:[id number] AGE/SX: 79/F ROOM: [place] [address] RE11/17/[address]: Dr. Crow Dc MD : [id number] BED: 1 DIS: 11/20/2024 SPEC #: [id number] RECD: 11/17/24 14:53 STATUS: [place] REQ #: [id number] ROB: 11/17/24 07:[address]: Crow Dc DEPT: SURGICAL PATHOLOGY RECD BY: Alcon Nuñez ENTERED: 11/17/24 15:27 SP TYPE: PLAQUE OTHR DR: Dr. Chris Marquez MD Tissues: A - PLAQUE Procedures: Decalcification bone/plaque Surgery Specimen Level III HEADER OPERATION: Right femoral endarterectomy, fem-fem bypass PRE-OP DIAGNOSIS: Atherosclerosis of [place] arteries of extremities with intermittent claudication, left leg TISSUE SUBMITTED: A- Right femoral plaque MICROSCOPIC DIAGNOSIS A. Right femoral artery, plaque, endarterectomy: Calcified atheromatous plaque. GROSS DESCRIPTION A. Received in formalin in a container labeled with the patient's name, date of , and right femoral plaque are 2 red-orozco, calcified fragments of tissue measuring 0.9 x 0.6 x 0.3 cm and 1.3 x 0.9 x 0.5 cm. Sectioning reveals firm and gritty surfaces. The majority of the specimen is submitted in A1 following decalcification. [facility] 11-17-2024 CPT:[id number]
[2024-11-17] MEDS: Cefazolin 2 GM in 0.9% Normal Saline (100mL Bag) 100 ML IV (07:55)
[2024-11-17] MEDS: Heparin 10,000 UNITS/10 ML Vial 10000 UNITS ×2 (08:23→09:22)
[2024-11-17 13:56] LABS: ACT Activated Clotting Time 251 sec (74-137)
[2024-11-17 13:56] LABS: ACT Activated Clotting Time 239 sec (74-137)
[2024-11-17 13:57] LABS: ACT Activated Clotting Time 222 sec (74-137)
[2024-11-17 13:57] LABS: ACT Activated Clotting Time 268 sec (74-137)
[2024-11-17 13:57] LABS: ACT Activated Clotting Time 320 sec (74-137)
[2024-11-17 13:57] LABS: ACT Activated Clotting Time 250 sec (74-137)
--- NOTE | 2024-11-17 14:00 | PCM.POST.ANE ---
Anesthesia: Postop Eval I Current Vital Signs Temperature: 97.2 F Pulse Rate: 67 Blood Pressure: 133/54 Respiratory Rate: 20 Pulse Ox: 99 Oxygen Delivery Method: Room Air Assessment Airway patent: Yes Spontaneous unlabored respirations: Yes Mental status: Awake, Calm and Confused nausea: No Vomiting: No Anesthesia Complication: No Fluid Hydration Crystalloid volume administer (ml): 2,500 Total IV fluid infused: 2,500 Progress Note Anesthesia document: Postop Eval 1 completed: Yes
--- NOTE | 2024-11-17 14:06 | POSTOPAN2_ITS ---
Anesthesia Postop Eval I Sum Postop Eval Completion status Anesthesia document: Postop Eval 1 completed: Yes Anesthesia Postop Eval I Summary Anesthesia Postop Eval I Summary: Anesthesia Postop Eval I: Assessment Summary Airway patent Yes 11/17/24 14:01 CLINICAL [email or web address] Spontaneous unlabored Yes 11/17/24 14:01 CLINICAL [email or web address] respirations Mental status Awake,Calm, 11/17/24 14:01 CLINICAL [email or web address] Confused nausea No 11/17/24 14:01 CLINICAL [email or web address] Vomiting No 11/17/24 14:01 CLINICAL [email or web address] Anesthesia Postop Eval I: Fluid Summary Crystalloid volume administer 2,500 11/17/24 14:01 CLINICAL [email or web address] (ml) Colloids volume administered ( ml) Blood Product volume administered (ml) Total IV fluid infused 2,500 11/17/24 14:01 CLINICAL [email or web address] Anesthesia Postop Eval I: Summary Notes Anesthesia Complication No 11/17/24 14:01 CLINICAL [email or web address] Anesthesia Complication Comment: Post-operative progress note Anesthesia: Postop Eval II Evaluation Mental status: Awake and Calm Pain Level: 0 nausea: No Vomiting: No Complications Anesthesia Complication: No
--- NOTE | 2024-11-17 14:06 | PCM.POSTANE2 ---
Anesthesia Postop Eval I Sum Postop Eval Completion status Anesthesia document: Postop Eval 1 completed: Yes Anesthesia Postop Eval I Summary Anesthesia Postop Eval I Summary: Anesthesia Postop Eval I: Assessment Summary Airway patent Yes 11/17/24 14:01 PR [email or web address] Spontaneous unlabored Yes 11/17/24 14:01 PR [email or web address] respirations Mental status Awake,Calm, 11/17/24 14:01 PR [email or web address] Confused nausea No 11/17/24 14:01 PR [email or web address] Vomiting No 11/17/24 14:01 PR [email or web address] Anesthesia Postop Eval I: Fluid Summary Crystalloid volume administer 2,500 11/17/24 14:01 PR [email or web address] (ml) Colloids volume administered ( ml) Blood Product volume administered (ml) Total IV fluid infused 2,500 11/17/24 14:01 PR [email or web address] Anesthesia Postop Eval I: Summary Notes Anesthesia Complication No 11/17/24 14:01 PR [email or web address] Anesthesia Complication Comment: Post-operative progress note Anesthesia: Postop Eval II Evaluation Mental status: Awake and Calm Pain Level: 0 nausea: No Vomiting: No Complications Anesthesia Complication: No
--- NOTE | 2024-11-17 14:12 | PCM.OPRPT ---
Operative Report (Standard) Operative Information Date of Procedure: 11/17/24 Pre-Operative Diagnosis: atherosclerosis iliamna arteries with rest pain, left lower extremity Post-Operative Diagnosis: same Surgery/Procedure Performed: Right common and external iliac artery intravascular lithotripsy angioplasty and stent Right femoral endarterectomy Right to left femoral-femoral bypass with cadaver Bilateral sartorius flaps electronic parts salesperson: Yes Metallurgist Process: Alina Pena Tasks completed by metallurgical laboratory assistant: Opening, Closing, Opening & closing, Hemostasis: Tie and Retracting Type of Anesthesia: General RN Documented Start/Stop Times: Operation Date: 11/17/24 07:30 Case Time Into Pre-Op 11/17/24 05:48 Out of Pre-Op 11/17/24 07:34 Anesthesia Start 11/17/24 07:38 Into Room 11/17/24 07:38 Procedure Start 11/17/24 08:23 Procedure End 11/17/24 13:37 Anesthesia End 11/17/24 13:48 Out of Room 11/17/24 13:48 Procedure Start Time: 08:30 Procedure Stop Time: 13:30 Select all DRAINS/GRAFTS/IMPLANTS that apply: Graft Graft details: Cadaver femoral-popliteal artery and Implanted device Implanted device details: Right common iliac stent-[employer] epic stent 10 x 4; right external iliac stent-[employer] Innova 8 x 100 Estimated Blood Loss: 157 Specimen collected: Yes Description of specimen(s) removed: Right femoral plaque Description of surgery: HPI: Patient is a 79-year-old female with 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 She also has right common femoral artery significant calcified atherosclerosis so an endarterectomy is required therefore a modifier 22 is applied given the additional 1 hour of operative time. She is taken now for right iliac angioplasty and stenting with intravascular lithotripsy and femoral-femoral bypass. Description of procedure: Upon obtaining informed consent and verification correct patient procedure and site the patient was taken to the operating where she was placed under general anesthesia. She was then positioned prepped and draped in usual sterile fashion time was performed. Oblique incision was made over the right common femoral artery and Bovie electrocautery used to dissect down through subcutaneous tissue and subcutaneous retractor put in position. Further dissection was then carried down to the femoral sheath which is then incised vertically exposing the common femoral artery. Sharp section was used to dissect proximally up to the inguinal ligament which was then freed along its inferior border and retracted cephalad exposing the distal external iliac artery. We then dissected more proximally until we encountered vessel that was soft and clamp oval at which point the vessel was dissected free circumferentially and a right angle used to place a vessel loop. We then dissected distally down onto the superficial femoral artery which had significant calcified plaque in its proximal segment so we dissected several centimeters under the vessel till we found a soft and clean mobile segment. The vessel was then dissected free circumferentially and a right angle was placed vessel loop. Finally sharp dissection was dissect down on the profundofemoral artery down the secondary branches and right and used to place Vesseloops around each of these individually. Next oblique incision was made over the left common femoral artery and Bovie used to dissect down through the subcutaneous tissue to the level of the femoral sheath. The femoral sheath was then incised vertically exposing the common femoral artery. Sharp dissection was used to dissect the vessel free proximally up to the inguinal ligament and a right angle was used to place vessel loop at this location. We then dissected down onto the superficial femoral artery and a right angle to place a vessel loop at a soft portion of the vessel and finally dissection carried down onto the secondary branch of the profunda and each of these secured with a vessel loop individually. A Moriah tunneler was then used to tunnel subcutaneously between the 2 femoral incisions and the patient was then heparinized allowed to circulate for 3 minutes. Subsequent heparin dosing was then based on ACT results. The right femoral vessels were then occluded with Vesseloops and longitudinal arteriotomy created with 11 blade on the common femoral artery and extended with Gauthier scissors on the superficial femoral artery. We then performed her endarterectomy with satisfactory endpoint distally on the superficial femoral artery and onto the origin of the profundofemoral artery. Distal endpoints on the SFA and the profunda were then tacked with 7-0 Prolene in interrupted fashion. The lumen was then flushed with heparinized saline and a bovine pericardial patch secured with a 6-0 Prolene in a running fashion. Prior to completing suture line the vessels are backbled after completing the suture line clamps were removed and satisfactory stasis was noted. Next a micropuncture needle and wire were used to access the patch in retrograde fashion and exchanged for micropuncture sheath. Through this a Surya wire was advanced traversing the external and common iliac arteries and ultimately advancing into the aorta. The micropuncture sheath was exchanged for 7 Telugu Brite tip sheath which is advanced in the position in the mid external iliac artery. From this position hand-injection subtraction angiography of the iliac vessels was obtained confirming position within true lumen and revealing the areas of severe stenosis and calcification. A KMP catheter was then advanced over the Bentson wire and the Bentson wire exchanged for a command 14 wire. Next a shockwave intravascular lithotripsy angioplasty balloon 8 mm x 6 was then advanced over the wire and positioned within the common iliac artery. The lithotripsy was then engaged for a total of 300 pulses with subtle repositioning within the vessel to maximize pulse penetration into the calcified sections. After the therapy was completed the balloon was withdrawn and a 6 mm x 80 shockwave intravascular lithotripsy balloon was advanced into the external iliac artery. The lithotripsy was then engaged for total of 400 pulses with subtle repositioning to ensure maximum penetrance into the calcium. The balloon was then deflated withdrawn and repeat angiography revealed satisfactory response with no significant residual stenosis, no extravasation no dissection. Next a [employer] Epic self-expanding stent 8 x 100 was advanced into the external iliac artery and deployed. This was followed by a [employer] Innova 10 x 40 self-expanding stent advanced into the common iliac artery with satisfactory overlap into the previously placed stent. This was then deployed in position and postdilated with a 8 mm x 4 Medtronic ever flex inflated to nominal and then deflated withdrawn. Finally the external iliac artery stent was postdilated with a 6 mm x 80 Med[employer]onic ever flex inflated and nominal and then deflated withdrawn. Completion angiography revealed satisfactory resolution of the areas of stenosis with significant caliber gain and no extravasation or dissection. Wires and sheath were then withdrawn and the femoral vessels reoccluded with Vesseloops. The puncture site in the patch was then extended with Gauthier scissors a satisfactory length to perform our bypass anastomosis. The cadaver femoral-popliteal artery had been thawed per upper marker's instructions and was then beveled to match the arteriotomy. Anastomosis performed using 6-0 Prolene in a running fashion. After completing the suture line the vessels were back flushed into the graft and then the bypass occluded with an atraumatic clamp. Once the femoral vessels were released satisfactory stasis was noted the suture line as well as all of the sidebranches. The graft was then marked to maintain orientation and secured to the tunneler and pulled through the contralateral incision. The left femoral vessels were then occluded with Vesseloops and longitudinal arteriotomy created with an 11 blade on the distal common femoral artery and extended with Gauthier scissors on the profundofemoral artery. There was mild plaque in the distal common femoral artery which did not cause any significant stenosis in the profundofemoral artery was widely patent with no significant atherosclerosis. The graft was then cut the length and beveled to match the arteriotomy and anastomosis performed using a 6-0 Prolene in a running fashion. Prior to complete suture line the graft was flushed and the vessel was backbled and after completing the suture line the clamps removed with satisfactory stasis noted. Outflow vessels were interrogated with Doppler and found to be patent with low resistance signal and there is a palpable pulse within the bypass graft and beyond the anastomosis. The inflow vessels likewise had appropriate signals and significant improved pulse from prior to the iliac intervention. Heparin was then reversed with protamine attention turned to the sartorius flaps. Bovie was used to dissect lateral to the right femoral vessels to the level the fascia which was then incised exposing the anterior surface of the sartorius muscle. The fascia incision then elongated toward the anterior superior iliac spine and the sartorius muscle mobilized along its lateral edge up to the insertion and the ASIS. The insertion was then divided with Bovie and the muscle reflected medially to cover the femoral vessels and the bypass graft. The sartorius was then secured in position with a 2-0 Vicryl in interrupted fashion. Finally dissection of the left sartorius flap was undertaken with Bovie used to dissect to the fascia lateral to the femoral vessels. The fascia was then incised exposing the anterior surface of the sartorius muscle and then extending toward the ASIS. The insertion was then divided with Bovie and the muscle mobilized along its lateral edge. This was then reflected medially to cover for the femoral vessels and the bypass graft and then secured in position with a 2-0 Vicryl. The incision was then closed with 3-0 Vicryl followed by 4 Monocryl and Prineo for the skin. Adaptic was then placed over the Prineo and Prevena closed incisional wound vacs were applied. The patient was then taken to the recovery room with anticipate admission to the intensive care unit for hemodynamic and vascular monitoring. Surgical Findings: See above Complications Complications: No
[2024-11-17] MEDS: 0.45% Normal Saline 1,000 ML 75 ML IV (15:55)
[2024-11-17] MEDS: Cefazolin 1 GM/50 ML BAG IV ×2 (15:55→23:02)
[2024-11-17] MEDS: Acetaminophen 500 MG Tablet 1000 MG PO ×2 (15:55→21:44)
[2024-11-17] MEDS: oxyCODONE 5 MG Tablet PO ×2 (18:43→23:02)
[2024-11-17] MEDS: 0.9% Saline Lock 10 ML Syringe IV (20:34)
[2024-11-17] MEDS: HYDROmorphone 1 MG/ML Syringe IV (20:35)
[2024-11-17] MEDS: Atorvastatin Calcium 80 MG Tablet PO (21:44)
[2024-11-18] VITALS (29 sets, daily range): BP systolic 88–141; BP diastolic 39–76; PULSE 31–66; RESP 11–24; TEMP 36.4–36.6; O2SAT 91–97; BMI 25.6
[2024-11-18] MEDS: Acetaminophen 500 MG Tablet 1000 MG PO ×3 (05:04→21:28)
[2024-11-18] MEDS: 0.45% Normal Saline 1,000 ML 75 ML IV ×2 (05:17→18:45)
[2024-11-18] MEDS: oxyCODONE 5 MG Tablet PO ×3 (05:17→21:12)
[2024-11-18 05:19] LABS: Absolute Lymphocyte Count 1.24 X10^3/uL (0.83-4.51); Absolute Neutrophil Count 9.5 X10^3/uL (2.0-7.7); Basophil# 0.02 X10^3/uL; Basophil% 0.2 % (0-1); Hematocrit 22.7 % (37-47); Hemoglobin 8.2 g/dL (12.0-15.0); Lymphocyte # 1.24 X10^3/ul (0.83-4.51); Lymphocyte % 10.8 % (19-41); Mean Corp Hgb Conc 36.1 g/dL (32-36); Mean Corpuscular Hgb 31.7 pg (27.0-32.0); Mean Corpuscular Volume 87.6 fL (81-99); Mean Platelet Vol. 9.6 fl (6.2-12.0); Monocyte# 0.69 X10^3/uL; NRBC Flagged by Analyzer 0 % (0-5); Neutrophil # 9.45 X10^3/uL (2.7-7.7); Neutrophil % 82.2 % (47-70); Platelet Count 214 K/mm3 (150-450); RBC Distribution Width CV 12.9 % (11.6-14.6); RBC Distribution Width SD 41.2 fl (35.1-43.9); Red Blood Count 2.59 M/mm3 (4.2-5.4); White Blood Count 11.5 K/mm3 (4.4-11.0)
[2024-11-18 05:50] LABS: Anion Gap 11 (5-15); BUN 20 mg/dL (4-19); BUN/Creat Ratio 21.7 RATIO (10-20); Calcium,Total 8.3 mg/dL (7.6-11.0); Carbon Dioxide 23.8 mmol/L (21.0-32.0); Chloride 102 mmol/L (98-108); Creatinine, Serum 0.92 mg/dL (0.70-1.20); EST Glomerular Filtration Rate 64 (>60); Estimated Creatinine Clearance 44.03 ml/min (50-250); Glucose 125 mg/dL (70-99); Magnesium 1.7 mg/dL (1.5-2.2); Phosphorus 3.7 mg/dL (2.7-4.5); Potassium 3.1 mmol/L (3.3-5.1); Sodium Level 137 mmol/L (133-145)
--- NOTE | 2024-11-18 08:23 | PCM.PN.SRG ---
Subjective Subjective I saw patient this morning resting comfortably in bed, eating breakfast which was still clear liquids. She reports she has been tolerating liquids well. She reports feeling fatigued, she reports pain in her L big toe, and she reports pain at the groin incision sites with movement. No other complaints/concerns. Discussed with nursing, arterial line has been positional and patient reported to them concern about going home at discharge, not sure she has enough support there. BPs have been stable, on the lower side. Objective Data Objective Data Vital Signs: Vital Signs Temp Pulse Resp BP Pulse Ox O2 Del Method 98.7 F 60 15 118/46 L 94 Room Air 11/17/24 15:25 11/18/24 07:00 11/18/24 07:00 11/18/24 07:00 11/18/24 07:00 11/18/24 07:00 Oxygen Delivery Method Room Air Weight: 139 lb 5.314 oz Body Mass Index (BMI) 25.6 Intake & Output: Intake and Output for Last 24 Hours 11/16/24 11/17/24 11/18/24 23:59 23:59 23:59 Intake Total 477 / 477 1180 / 1180 Output Total 1000 / 1000 325 / 325 Balance -523 / -523 855 / 855 Lab / Micro Data 11/18/24 05:08 11/18/24 05:08 Labs: Laboratory Results - last 24 hr 11/17/24 08:28: Activated Clotting Time 268 H 11/17/24 08:59: Activated Clotting Time 239 H 11/17/24 09:31: Activated Clotting Time 251 H 11/17/24 10:17: Activated Clotting Time 320 H 11/17/24 10:55: Activated Clotting Time 222 H 11/17/24 11:34: Activated Clotting Time 250 H 11/18/24 05:08: WBC 11.5 H, RBC 2.59 L, Hgb 8.2 L, Hct 22.7 L, MCV 87.6, MCH 31.7, MCHC 36.1 H, RDW Std Deviation 41.2, RDW Coeff of Bao 12.9, Plt Count 214, MPV 9.6, Immature Gran % (Auto) 0.800, Neut % (Auto) 82.2 H, Lymph % (Auto) 10.8 L, Laporte % (Auto) 6.0, Eos % (Auto) 0.0, Baso % (Auto) 0.2, Absolute Neuts (auto) 9.5 H, Absolute Lymphs (auto) 1.24, Nucleated RBC % 0, Sodium 137, Potassium 3.1 L, Chloride 102, Carbon Dioxide 23.8, Anion Gap 11, BUN 20 H, Creatinine 0.92, Estim Creat Clear Calc 44.03 L, Est GFR (MDRD) Non-Af 64, BUN/Creatinine Ratio 21.7 H, Glucose 125 H, Calcium 8.3, Phosphorus 3.7, Magnesium 1.7 Radiography Diagnostic Testing: Radiology Impression Fluoroscopy 11/17/24 06:30 IMPRESSION: Intraoperative fluoroscopic services provided for right common iliac stenting. Reading Location: [place] [id number] Physical Exam Const alert, oriented x3 and no apparent distress General Appearance: cooperative HEENT normocephalic, head/scalp atraumatic, external ears normal and external nose normal Eyes EOMs intact bilaterally General Eye: normal appearance of both eyes Neck General: normal visual inspection and trachea midline Resp normal respiratory effort, normal air movement, no retractions and no use of accessory muscles Effort and Inspection: able to speak in complete sentences; Negative for labored, grunting or stridor Cardio regular rate and regular rhythm Extremity Extremity Narrative: Bilateral groin incision sites with Prevena vacuum dressings C/D/I, maintaining good seal. No output in the canister in the L groin, scant serosanguineous drainage in the canister on the R groin. Both without significant edema, soft to palpation, no ecchymosis or erythema. R DP and PT pulses strong, monophasic by doppler L DP and PT pulses strong, monophasic by doppler Bilateral feet are appropriately warm, no cyanotic/ruborous discoloration. L big toe without any erythema/focal edema/wounds/cyanotic discoloration Skin no rashes or lesions noted Neuro moves all extremities and no focal motor deficits Speech: speech normal Psych mental status grossly normal Appearance: grossly normal Attitude: calm and engaged Activity / Motor Behavior: appropriate eye contact Speech: normal speech Assessment & Plan Assessment/Plan (1) Atherosclerosis of ewiiaapaayp arteries of extremities with intermittent claudication, left leg: PLAN: She is POD#1 from R common/external iliac artery lithotripsy angioplasty and stent, R common fem endart, R to L fem-fem bypass, and bilateral sartorius flaps. Bilateral pedal pulses with strong doppler signals. Incision sites are satisfactory in appearance with Prevena vacs maintaining good seal. Plan for vacs to remain in place for 7 days postop. Expected pain at the groin access sites; L toe pain may be reperfusion/ischemic neuropathy, will continue to monitor. BPs have been on the lower side. Significant Hgb drop after surgery, no signs of bleeding, she is fluid positive for her visit so may be dilutional to some degree; will monitor. Will hold her home antihypertensives and monitor for now. Potassium 3.1. She takes 20 meq supplement at baseline, will add additional 20 meq today and continue to monitor. Plan to discontinue mitchell, discontinue arterial line, and advance to normal diet. Will await PT/OT evaluation and recommendations to assist with discharge planning. From surgical perspective, expect she may be appropriate for discharge tomorrow pending possible need for SNF/rehab placement. Charges/Coding Procedures Integumentary [id number]: [id number] Global Visit
[2024-11-18] MEDS: Enoxaparin 40 MG/0.4 ML Syringe SC (09:53)
[2024-11-18] MEDS: Furosemide 40 MG Tablet PO (09:53)
[2024-11-18] MEDS: Clopidogrel Bisulfate 75 MG Tablet PO (09:54)
[2024-11-18] MEDS: Potassium Chloride Oral Tablet 20 MEQ PO ×2 (09:54→09:58)
[2024-11-18] MEDS: Aspirin 81 MG TAB.CHEW PO (09:54)
--- NOTE | 2024-11-18 11:45 | CASEMGMT ---
Addendum entered by Theresa Villalta 11/18/24 14:46: Strata: 2 Original Note: RN?CM?PARTS AND SERVICE MANAGER?CM?to room to meet with patient for initial transition planning/care coordination?assessment.?RN?CM?introduced self and role at [facility].? Pt voices understanding and consents to?assessment?at this time.? Pt resting in bed in no distress at this time.? Pt is A/O at this time and answers all questions appropriately.?? Care providers, pharmacy, and demographics verified/updated at this time. PCP: No PCP currently. She used to see Dr Marquez, but states that was about 6 yrs ago. She would like to find a new PCP. Pt provided w/local [facility]. Specialists: Dr Dc-vascular, [facility]/cardiology Preferred Pharmacy: [facility] @ [place]. Otherwise goes to [facility] or uses home-delivery. Insurance: [employer] Prescription Benefit:?yes Living Will/HPOA:? Pt does not currently have LW/HCPOA and pt is interested in completing HCPOA. She states she would like to name her daughter, Sherri, as primary agent and her daughter, Charlie, as 1st alternative. THANH, Aishwarya, made aware. LNOK: Pt has 4 daughters and 1 son. Pt is currently , but states it is a difficult situation and has been for years. She did not elaborate any further. Living Arrangements: Pt lives w/her and grandson in 2-story home w/2 steps to enter. Pt states her bedroom and bathroom are on the 2nd floor and she does not have a bathroom on the main floor. She is not certain how well she will do with the stairs and would like to work w/stairs w/therapy tomorrow. Call placed to therapy and they were notified. Transportation:?Pt states drives self and states no transportation concerns at this time.? Pt states one of her daughters will most likely be taking her home @ [place]. DME: ? Denies using or having any DME @ home. When therapy worked w/her today she used a walker and would like to get one @ [place]. Verbal review of DME companies given and pt chose [employer]. HHC/SNF: No hx of either. Discussed discharge planning. Pt wishes to return home and states has no further concerns with going home at time of discharge.? Pt does not feel that she will be homebound once the wound vac's are removed. She is interested in script for OP therapy @ [place] & made aware of locations that do OP therapy. CM?to follow for any further discharge planning/needs.? Pt voices no further concerns/needs at this time.? Advised pt to ask for?CM?if any further questions/concerns/needs arise.? Voices understanding. PLAN:??Home w/walker and script for OP therapy. Cleopatra BSN?RN?CM
[2024-11-18 15:58] LABS: Hemoglobin 7.8 g/dL (12.0-15.0)
--- NOTE | 2024-11-18 17:44 | CASEMGMT ---
Social Work- THANH met with pt to complete HCPOA. SW introduced self and role. Pt agreeable to meet. Pt completed documents naming Sherri primary agent and Charlie as alternate agent. SW engaged in discussion regarding discharge planning. Pt reports that she lives in an old farmhouse with uneven floors and 15 stairs to her bedroom and bathroom. Pt reports there is no option to make a bedroom on the first floor. SW provided education on insurance guidelines and precert process. Pt asked SW to call dtr Grabiel who is requesting information as well. THANH called [facility] to discuss discharge planning and provide education on insurance coverage and precerts. [facility]iel advocating as well for pt to have inpatient therapy prior to discharge home due to being alone with no help and no bathroom or bedroom on first floor. [facility]iel inquired into [facility]. THANH completed referral. THANH remains available to follow for discharge planning. LORENA Brand
[2024-11-18] MEDS: Albumin Human 25% (100 mL) 25 GM/100 ML BAG IV (20:01)
[2024-11-18] MEDS: 0.9% Normal Saline 250 ML IV.SOLN. IV (20:02)
[2024-11-18] MEDS: Atorvastatin Calcium 80 MG Tablet PO (21:28)
[2024-11-18] MEDS: Furosemide 20 MG/2 ML VIAL IV (22:34)
[2024-11-19] VITALS (16 sets, daily range): BP systolic 99–126; BP diastolic 39–72; PULSE 56–66; RESP 14–22; TEMP 36.4–36.6; O2SAT 92–98; BMI 25.8
[2024-11-19] MEDS: Acetaminophen 500 MG Tablet 1000 MG PO ×3 (05:41→21:58)
[2024-11-19] MEDS: 0.9% Saline Lock 10 ML Syringe IV (05:42)
[2024-11-19 06:08] LABS: Hematocrit 26.5 % (37-47); Hemoglobin 9.3 g/dL (12.0-15.0); Mean Corp Hgb Conc 35.1 g/dL (32-36); Mean Corpuscular Hgb 31.3 pg (27.0-32.0); Mean Corpuscular Volume 89.2 fL (81-99); Mean Platelet Vol. 9.9 fl (6.2-12.0); Platelet Count 174 K/mm3 (150-450); RBC Distribution Width SD 45.4 fl (35.1-43.9); Red Blood Count 2.97 M/mm3 (4.2-5.4); White Blood Count 9.1 K/mm3 (4.4-11.0)
[2024-11-19 06:31] LABS: Anion Gap 11 (5-15); BUN 20 mg/dL (4-19); BUN/Creat Ratio 21.3 RATIO (10-20); Calcium,Total 8.5 mg/dL (7.6-11.0); Carbon Dioxide 24.2 mmol/L (21.0-32.0); Chloride 107 mmol/L (98-108); Creatinine, Serum 0.92 mg/dL (0.70-1.20); EST Glomerular Filtration Rate 64 (>60); Estimated Creatinine Clearance 44.28 ml/min (50-250); Glucose 111 mg/dL (70-99); Potassium 3.1 mmol/L (3.3-5.1); Sodium Level 142 mmol/L (133-145)
--- NOTE | 2024-11-19 06:39 | PN.SURG_ITS ---
Subjective Subjective I saw Nelli resting comfortably in bed this morning. She reports expected pain at the groin incisions, worse with movement. She reports persistent pain in her L big toe but otherwise no pain through her foot or the rest of her leg. She denies chest pain, back pain, abdominal pain, shortness of breath, dizziness. She reports she is voiding without difficulty. She worked with therapy yesterday, she felt like she did okay but they didn't do stairs and she has 13- 15 stairs in her home. She also states she felt she was moving OK in the morning but by the afternoon she was more fatigued and had much more difficulty lifting her legs in/out of bed. She is not sure she will be able to navigate her stairs at home and she reports her daughters do not think she can go home, they feel she needs additional rehab prior. She had soft BPs through the day yesterday, she was asymptomatic with this. Repeat Hgb yesterday afternoon had dropped to 7.8. She received NS bolus with albumin and 1 unit PRBC. Her pressures responded well to this and have remained improved so far. This morning systolics 110s-120s. Objective Data Objective Data Vital Signs: Vital Signs Temp Pulse Resp BP Pulse Ox O2 Del Method 98 F 66 14 124/48 H 93 Room Air 11/19/24 04:00 11/19/24 05:00 11/19/24 05:00 11/19/24 05:00 11/19/24 05:00 11/19/24 05:00 Oxygen Delivery Method Room Air Weight: 141 lb 1.533 oz Body Mass Index (BMI) 25.8 Intake & Output: Intake and Output for Last 24 Hours 11/17/24 11/18/24 11/19/24 23:59 23:59 23:59 Intake Total 477 / 477 3780 / 3780 Output Total 1000 / 1000 1225 / 1225 400 / 400 Balance -523 / -523 2555 / 2555 -400 / -400 Lab / Micro Data 11/19/24 05:48 11/19/24 05:48 Labs: Laboratory Results - last 24 hr 11/18/24 15:00: Hgb 7.8 L 11/18/24 17:43: Blood Type A POSITIVE, Antibody Screen NEGATIVE, Crossmatch See Detail 11/19/24 05:48: WBC 9.1, RBC 2.97 L, Hgb 9.3 L, Hct 26.5 L, MCV 89.2, MCH 31.3, MCHC 35.1, RDW Std Deviation 45.4 H, RDW Coeff of Bao 14.0, Plt Count 174, MPV 9.9, Sodium 142, Potassium 3.1 L, Chloride 107, Carbon Dioxide 24.2, Anion Gap 11, BUN 20 H, Creatinine 0.92, Estim Creat Clear Calc 44.28 L, Est GFR (MDRD) Non-Af 64, BUN/Creatinine Ratio 21.3 H, Glucose 111 H, Calcium 8.5 Physical Exam Const alert, oriented x3 and no apparent distress General Appearance: cooperative HEENT normocephalic, head/scalp atraumatic, external ears normal and external nose normal Eyes EOMs intact bilaterally General Eye: normal appearance of both eyes Neck General: normal visual inspection and trachea midline Resp normal respiratory effort, normal air movement, no retractions and no use of accessory muscles Effort and Inspection: able to speak in complete sentences; Negative for labored, grunting or stridor Cardio regular rate and regular rhythm Extremity Extremity Narrative: Bilateral groin incision sites with Prevena vacuum dressings C/D/I, maintaining good seal. No output in the canister in the L groin, scant serosanguineous drainage in the canister on the R groin. Both without significant edema, soft to palpation, no ecchymosis or erythema. R DP and PT pulses nonpalpable but strong monophasic signal by doppler L DP and PT pulses nonpalpable but strong monophasic signals by doppler Bilateral feet are appropriately warm, no cyanotic/ruborous discoloration. L big toe without any erythema/focal edema/wounds/cyanotic discoloration Skin no rashes or lesions noted Neuro moves all extremities and no focal motor deficits Speech: speech normal Psych mental status grossly normal Appearance: grossly normal Attitude: calm and engaged Activity / Motor Behavior: appropriate eye contact Speech: normal speech Assessment & Plan Assessment/Plan (1) Atherosclerosis of [place] arteries of extremities with intermittent claudication, left leg: PLAN: She is POD#2 from R common/external iliac artery lithotripsy angioplasty and stent, R common fem endart, R to L fem-fem bypass, and bilateral sartorius flaps. Bilateral pedal pulses with strong doppler signals. Incision sites are satisfactory in appearance with Prevena vacs maintaining good seal. Plan for vacs to remain in place for 7 days postop to be removed 11/25/24. Expected pain at the groin access sites; L toe pain may be reperfusion/ischemic neuropathy, will continue to monitor. BPs improved after fluids, albumin, and 1 unit PRBC yesterday. Hgb improved to 9.3 this morning. Will continue to monitor. Potassium stable at 3.1 this morning. She takes 20 meq supplement at baseline, will add additional 40 meq today and continue to monitor. Kidney function is stable with Cr 0.92, GFR 64. She will work with PT/OT again today, plan is to evaluate her on the stairs today per their notes. Will see how she does with this and await their recommendations. Anticipate that she will require rehab/SNF at discharge. Will continue to monitor BP and Hgb; if these remain stable today then she would be appropriate for discharge this afternoon or tomorrow morning pending placement.
[2024-11-19] MEDS: Potassium Chloride Oral Tablet 20 MEQ 40 MEQ PO (07:59)
[2024-11-19] MEDS: Aspirin 81 MG TAB.CHEW PO (08:00)
[2024-11-19] MEDS: Clopidogrel Bisulfate 75 MG Tablet PO (10:11)
[2024-11-19] MEDS: Furosemide 40 MG Tablet PO (10:11)
[2024-11-19] MEDS: Potassium Chloride Oral Tablet 20 MEQ PO (10:11)
[2024-11-19] MEDS: Enoxaparin 40 MG/0.4 ML Syringe SC (10:11)
[2024-11-19] MEDS: Docusate Sodium 100 MG Capsule PO (10:13)
[2024-11-19 12:14] LABS: Hemoglobin 8.9 g/dL (12.0-15.0)
--- NOTE | 2024-11-19 13:41 | CASEMGMT ---
Social Work- SW met with pt and pt dtr to discuss therapy and discharge plans. Pt would like referral to TCU due to decreased ability to participate in therapy. SW reached out to bedside nurse to contact physician regarding pt concerns regarding decreased ability to use her leg. SW completed TCU referral. THANH remains available to follow. LORENA Brand
[2024-11-19] MEDS: oxyCODONE 5 MG Tablet PO (18:24)
[2024-11-19] MEDS: Atorvastatin Calcium 80 MG Tablet PO (21:58)
[2024-11-20] MEDS: Mag Hydrox/Al Hydrox/Simeth 30 ML UDC PO (00:21)
[2024-11-20 02:00] VITALS: PULSE 56
[2024-11-20 03:00] VITALS: BP 144/60; PULSE 60; RESP 18; TEMP 36.7; O2SAT 96
[2024-11-20] MEDS: Acetaminophen 500 MG Tablet 1000 MG PO ×2 (05:16→13:30)
[2024-11-20 05:31] LABS: Absolute Lymphocyte Count 1.92 X10^3/uL (0.83-4.51); Absolute Neutrophil Count 7.4 X10^3/uL (2.0-7.7); Basophil# 0.02 X10^3/uL; Basophil% 0.2 % (0-1); Eosinophil# 0.07 X10^3/uL; Eosinophils% 0.7 % (0-5); Hematocrit 26.5 % (37-47); Hemoglobin 9.1 g/dL (12.0-15.0); Lymphocyte # 1.92 X10^3/ul (0.83-4.51); Mean Corp Hgb Conc 34.3 g/dL (32-36); Mean Corpuscular Hgb 30.6 pg (27.0-32.0); Mean Corpuscular Volume 89.2 fL (81-99); Mean Platelet Vol. 9.9 fl (6.2-12.0); Monocyte# 0.64 X10^3/uL; Monocyte% 6.3 % (0-10); NRBC Flagged by Analyzer 0 % (0-5); Neutrophil # 7.42 X10^3/uL (2.7-7.7); Neutrophil % 73.3 % (47-70); Platelet Count 197 K/mm3 (150-450); RBC Distribution Width CV 13.8 % (11.6-14.6); RBC Distribution Width SD 44.8 fl (35.1-43.9); Red Blood Count 2.97 M/mm3 (4.2-5.4); White Blood Count 10.1 K/mm3 (4.4-11.0)
[2024-11-20 05:48] VITALS: BMI 25.8
[2024-11-20 05:56] LABS: Anion Gap 8 (5-15); BUN 14 mg/dL (4-19); BUN/Creat Ratio 18.8 RATIO (10-20); Calcium,Total 8.6 mg/dL (7.6-11.0); Carbon Dioxide 24.1 mmol/L (21.0-32.0); Chloride 106 mmol/L (98-108); Creatinine, Serum 0.76 mg/dL (0.70-1.20); EST Glomerular Filtration Rate 81 (>60); Estimated Creatinine Clearance 50.94 ml/min (50-250); Glucose 104 mg/dL (70-99); Potassium 3.5 mmol/L (3.3-5.1); Sodium Level 138 mmol/L (133-145)
--- NOTE | 2024-11-20 07:32 | PN.SURG_ITS ---
Subjective Subjective Nelli was up to the bedside chair this morning. She reports lessening groin pain. She reports resolution of her prior L big toe pain. She has no other complaints. Her blood pressures have remained improved, now a bit hypertensive this morning. Her Hgb is stable at 9.1 this morning, Potassium improved to 3.5. Discussed with KAYLAH, lebronert has been submitted for discharge to TCU, awaiting decision. Objective Data Objective Data Vital Signs: Vital Signs Temp Pulse Resp BP Pulse Ox O2 Del Method 98.0 F 60 18 144/60 H 96 Room Air 11/20/24 03:00 11/20/24 03:00 11/20/24 03:00 11/20/24 03:00 11/20/24 03:00 11/20/24 03:13 Oxygen Delivery Method Room Air Weight: 141 lb 3 oz Body Mass Index (BMI) 25.8 Intake & Output: Intake and Output for Last 24 Hours 11/18/24 11/19/24 11/20/24 23:59 23:59 23:59 Intake Total 3780 / 3780 2120 / 2120 Output Total 1225 / 1225 1300 / 1500 200 / 200 Balance 2555 / 2555 820 / 620 -200 / -200 Lab / Micro Data 11/20/24 05:15 11/20/24 05:15 Labs: Laboratory Results - last 24 hr 11/19/24 12:05: Hgb 8.9 L 11/20/24 05:15: WBC 10.1, RBC 2.97 L, Hgb 9.1 L, Hct 26.5 L, MCV 89.2, MCH 30.6, MCHC 34.3, RDW Std Deviation 44.8 H, RDW Coeff of Bao 13.8, Plt Count 197, MPV 9.9, Immature Gran % (Auto) 0.500, Neut % (Auto) 73.3 H, Lymph % (Auto) 19.0, [place] % (Auto) 6.3, Eos % (Auto) 0.7, Baso % (Auto) 0.2, Absolute Neuts (auto) 7.4, Absolute Lymphs (auto) 1.92, Nucleated RBC % 0, Sodium 138, Potassium 3.5, Chloride 106, Carbon Dioxide 24.1, Anion Gap 8, BUN 14, Creatinine 0.76, Estim Creat Clear Calc 50.94, Est GFR (MDRD) Non-Af 81, BUN/Creatinine Ratio 18.8, G lucose 104 H, Calcium 8.6 Physical Exam Const alert, oriented x3 and no apparent distress General Appearance: cooperative HEENT normocephalic, head/scalp atraumatic, external ears normal and external nose normal Eyes EOMs intact bilaterally General Eye: normal appearance of both eyes Neck General: normal visual inspection and trachea midline Resp normal respiratory effort, normal air movement, no retractions and no use of accessory muscles Effort and Inspection: able to speak in complete sentences; Negative for labored, grunting or stridor Cardio regular rate and regular rhythm Extremity Extremity Narrative: Bilateral groin incision sites with Prevena vacuum dressings C/D/I, maintaining good seal. No output in the canister in the L groin, scant serosanguineous drainage in the canister on the R groin. Both without significant edema, soft to palpation, no ecchymosis or erythema. R DP pulse now palpable, PT with good doppler signal L DP and PT pulses nonpalpable but strong monophasic signals by doppler Bilateral feet are appropriately warm, no cyanotic/ruborous discoloration. Skin no rashes or lesions noted Neuro moves all extremities and no focal motor deficits Speech: speech normal Psych mental status grossly normal Appearance: grossly normal Attitude: calm and engaged Activity / Motor Behavior: appropriate eye contact Speech: normal speech Assessment & Plan Assessment/Plan (1) Atherosclerosis of [place] arteries of extremities with intermittent claudication, left leg: PLAN: She is POD#3 from R common/external iliac artery lithotripsy angioplasty and stent, R common fem endart, R to L fem-fem bypass, and bilateral sartorius flaps. Vascular exam is stable/improving, R pedal pulse now palpable, L pedal pulse with good doppler signals. Her pain is improving. Incision sites are satisfactory in appearance with Prevena vacs maintaining good seal. Plan for vacs to remain in place for 7 days postop to be removed 11/25/24. BPs have remained improved and now hypertensive this morning to systolic 160s; will restart home carvedilol, consider restarting home lisinopril with evening dose. Potassium improved to 3.5. Hgb stable at 9.1. Kidney function stable. She is appropriate for discharge pending precert approval for planned discharge to TCU. Charges/Coding Procedures Integumentary [id number]: [id number] Global Visit
[2024-11-20 08:51] VITALS: BP 158/69; PULSE 60; RESP 17; TEMP 36.1; O2SAT 97
[2024-11-20] MEDS: Aspirin 81 MG TAB.CHEW PO (08:53)
[2024-11-20] MEDS: Enoxaparin 40 MG/0.4 ML Syringe SC (08:53)
[2024-11-20] MEDS: Clopidogrel Bisulfate 75 MG Tablet PO (08:53)
[2024-11-20] MEDS: Furosemide 40 MG Tablet PO (08:53)
[2024-11-20] MEDS: Potassium Chloride Oral Tablet 20 MEQ PO (08:53)
--- NOTE | 2024-11-20 09:10 | CASEMGMT ---
Social Work SW spoke w/Bre in TCU, precert started this morning. NAYELY Singleton
[2024-11-20 12:18] VITALS: PULSE 62
--- NOTE | 2024-11-20 12:50 | NURSING ---
this RN resumed care for this patient at this time
[2024-11-20] MEDS: Docusate Sodium 100 MG Capsule PO (13:31)
--- NOTE | 2024-11-20 13:41 | CASEMGMT ---
Social Work Precert has not yet been attained for pt to go to [facility]. SW spoke w/pt, let her know that we have not heard back from insurance. SW explained will let her know as soon as we hear back, but there is a chance she could get stuck here for a couple of days waiting for precert. Pt states understanding. SW will place green sheet on chart in event precert is not attained by the time SW leaves for the day. NAYELY Singleton
--- NOTE | 2024-11-20 14:53 | CASEMGMT ---
Social Work Jaclyn from TCU emailed THANH a letter from [employer] stating the insurance is offering a peer to peer. SW spoke w/MANDIE Wood who is able to do the peer to peer. THANH called [employer] and set up the call for 3:30pm today, SW let Tiana know. She will let SW know or ICU staff know once she speaks w/[employer]. THANH spoke w/pt and daughters in the room. THANH explained that insurance asked for a peer to peer, meaning they do not think pt qualifies for TCU and would like to have our medical staff speak w/their medical corps officer. THANH explained that MANDIE Montiel has a call set up to speak w/the medical corps officer at 3:30pm to explain the reasons why TCU is warranted. Pt's two daughters expressed concern about this, stating pt cannot get out of bed on her own and that her blood pressure is not controlled. Daughter states they cannot monitor pt's blood pressure at home. THANH explained that unfortunately insurance often looks at therapy notes through a narrow scope, and since pt did not need much help walking they may think she does not need rehab. In regard to pt's blood pressure, if her blood pressure was not controlled SW explained that insurance would likely not consider this as a reason to go to TCU, and focus on if pt is ready to leave the hospital at all. Daughter then asked if Tiana was going to call family before speaking w/insurance. THANH explained that THANH does not anticipate Tiana calling them, as all the information Tiana would utilize to see if insurance will reconsider pt for TCU is in the chart, and Tiana is already aware of. Daughters state understanding. THANH did let Tiana know via text that the family has said they will appeal it if pt is denied. THANH also let Bre in TCU know. THANH will continue to follow. NAYELY Singleton
--- NOTE | 2024-11-20 15:39 | DS.PCM_ITS ---
Providers Date of Admission: 11/17/24 Primary Care Physician: No Primary Care Phys Reason For Visit: ATHEROSCLEROSIS W/ REST PAIN, LEFT LOWER EXTREMITY Diagnosis Discharge Diagnosis (1) Atherosclerosis of [place] arteries of extremities with intermittent claudication, left leg: Status: Chronic Code(s): I70.212 - Atherosclerosis of [place] arteries of extremities with intermittent claudication, left leg Plan: She is POD#3 from R common/external iliac artery lithotripsy angioplasty and stent, R common fem endart, R to L fem-fem bypass, and bilateral sartorius flaps. Vascular exam is stable/improving, R pedal pulse now palpable, L pedal pulse with good doppler signals. Her pain is improving. Incision sites are satisfactory in appearance with Prevena vacs maintaining good seal. Plan for vacs to remain in place for 7 days postop to be removed 11/25/24. BPs have remained improved and now hypertensive this morning to systolic 160s; will restart home carvedilol, consider restarting home lisinopril with evening dose. Potassium improved to 3.5. Hgb stable at 9.1. Kidney function stable. She is appropriate for discharge pending precert approval for planned discharge to TCU. Medications at Discharge Home Medications aspirin 81 mg chewable tablet 81 mg PO DAILY@0800 blood thinner 09/27/16 nitroglycerin 0.4 mg sublingual tablet 0.4 mg sublingual Q5-15M PRN chest pain #25 tabs 10/16/22 potassium chloride 10 mEq capsule,extended release 20 meq (2 x 10 mEq) PO DAILY supplement #180 caps 10/21/23 vitamin D3 125 mcg (5,000 unit)-vitamin K2 100 mcg capsule 1 cap PO DAILY supplement 12/06/23 carvedilol 12.5 mg tablet (Coreg) 12.5 mg PO BID bp #180 tabs 03/16/24 lisinopril 20 mg tablet 20 mg PO BID bp #180 tabs 03/16/24 clopidogrel 75 mg tablet 75 mg PO DAILY blood thinner #90 tabs 10/27/24 atorvastatin 80 mg tablet 80 mg PO QHS cholesterol 11/02/24 calcium carbonate 500 mg-simethicone 20 mg chewable tablet 1 - 2 tab PO .as directed PRN reflux 11/02/24 furosemide 40 mg tablet 40 mg PO DAILY dieretic 11/02/24 magnesium sulfate 1 ea topical TID PRN PRN cramps 11/02/24 acetaminophen 500 mg tablet 1,000 mg (2 x 500 mg) PO Q8 #0 tabs 11/20/24 docusate sodium 100 mg capsule 100 mg PO BID PRN PRN Constipation #0 caps 11/20/24 oxycodone 5 mg tablet 5 mg PO Q8H PRN PRN Pain Score 4-10 5 days #15 tabs 11/20/24 Hospital Course Summary of Care Provided Hospital Course: Nelli Rivers is a 79 y/o female who underwent planned right common and external iliac artery intravascular lithotripsy angioplasty and stent, right femoral endarterectomy, and right to left femoral-femoral bypass with cadaver, and bilateral sartorius flaps on 11/17/24 due to LLE rest pain with severe multilevel atherosclerotic disease. The procedure was without complication and she tolerated it well. Postoperatively, she was routinely admitted to the ICU for ongoing hemodynamic monitor. Her vascular exam has been much improved following the procedure; her L foot rest pain is resolved though she had lingering L big toe pain until POD#3. The bilateral groin incision sites have been satisfactory in appearance without evidence of hematoma or infection; Prevena vac dressings are in place and have been maintaining good seal. She did have hypotension postoperatively and was found to have postoperative anemia to 7.8 on POD#1; she received 1 unit PRCB, 250mL NS bolus with albumin and her hypotension resolved. Home antihypertensives were restarted POD#3. She has worked with PT/OT postoperatively and is found to be functioning below her baseline with inability to tolerate steps and with significant shortened walking duration which precludes safe discharge to her home which has 15 steps to her bathroom/bedroom. She is therefore discharged to TCU for further skilled therapy 5 times weekly for strengthening. Physical Exam Const oriented x3 and no apparent distress General Appearance: cooperative HEENT normocephalic, head/scalp atraumatic, external ears normal and external nose normal Eyes EOMs intact bilaterally General Eye: normal appearance of both eyes Neck General: normal visual inspection and trachea midline Resp normal respiratory effort and clear to auscultation bilaterally Effort and Inspection: able to speak in complete sentences; Negative for labored, grunting or stridor Cardio regular rate and regular rhythm Extremity normal to inspection and no clubbing, cyanosis or edema Extremity Narrative: Bilateral groin incision Skin no rashes or lesions noted Trauma: no lacerations or abrasions Neuro moves all extremities and no focal motor deficits Speech: speech normal Psych mental status grossly normal Appearance: grossly normal Attitude: calm and engaged Activity / Motor Behavior: appropriate eye contact Speech: normal speech Weight / BMI Weight Weight: 141 lb 3 oz Body Mass Index (BMI) 25.8 ABG / Lab / Microbiology Data 11/20/24 05:15 11/20/24 05:15 Laboratory: Laboratory Results - last 24 hr 11/20/24 05:15: WBC 10.1, RBC 2.97 L, Hgb 9.1 L, Hct 26.5 L, MCV 89.2, MCH 30.6, MCHC 34.3, RDW Std Deviation 44.8 H, RDW Coeff of Bao 13.8, Plt Count 197, MPV 9.9, Immature Gran % (Auto) 0.500, Neut % (Auto) 73.3 H, Lymph % (Auto) 19.0, [place] % (Auto) 6.3, Eos % (Auto) 0.7, Baso % (Auto) 0.2, Absolute Neuts (auto) 7.4, Absolute Lymphs (auto) 1.92, Nucleated RBC % 0, Sodium 138, Potassium 3.5, Chloride 106, Carbon Dioxide 24.1, Anion Gap 8, BUN 14, Creatinine 0.76, Estim Creat Clear Calc 50.94, Est GFR (MDRD) Non-Af 81, BUN/Creatinine Ratio 18.8, G lucose 104 H, Calcium 8.6 D/C Instructions Discharge Diet: No restrictions May shower in (days): 1 Weight Bearing Status: Weight bearing as tolerated Lifting Restricted to (Lbs): 20 Lifting Restrictions: Do not lift greater than 20 pounds for 3 weeks Call your doctor if your incision/area has: Sudden Increased Bleeding, Increased Pain/ Swelling and Foul Smelling Discharge Call your doctor if you observe: Fever of 101 or Higher and Uncontrolled pain Remove Dressing in: 4 days (Remove bilateral Prevena wound vacs on 11/24/24) DC O2, CPAP, BIPAP Needs Home O2 Discharge instructions: No Additional Instructions: The bilateral groin incision sites are covered by Prevena vacuum dressings. These are to remain in place for 7 days postoperatively if possible and can be removed on 11/24/2024. To remove first hold down the power button until it turns off, then twist the white connector to disconnect the tubing at which point the purple foam will puff up, and then you can just peel the dressing off. If it begins to alarm, malfunction, or does not hold seal you may remove it sooner if needed. The incisions are closed with dermabond skin glue an prineo tape which will remain in place even after the overlying vacuum dressings are removed. The skin glue and tape will slowly peel away on its own with time. You may shower tomorrow. Soap and water can run over the incisions, pat gently to dry. Do not submerge the incision sites in water such as to take a bath, swim, etc for 3 weeks. Do not lift greater than 20 pounds for 3 weeks otherwise please proceed with activity and physical therapy as tolerated. Please Follow Up With: Tiana Wood PA When: 12/01/24 Meaningful Use Info Meaningful Use Meaningful Use Diagnoses (Choose all that apply): None applicable Ischemic Stroke Statin Dosing Therapy Reference: STATIN DOSE THERAPY REFERENCE: * Patients > 75 years receive moderate or high dose statin therapy. * Patients 75 years or YOUNGER should receive HIGH intensity statin dose unless contraindicated. You will be required to document reason for non-treatment if statin daily dose does not meet guidelines. HIGH DOSE STATIN THERAPY DAILY Atorvastatin > than or = to 40 mg Rosuvastatin > than or = to 20 mg Amlodipine + Atorvastatin > than or = to 2.5/40 mg Ezetimibe + Simvastatin 10/80 mg Simvastatin 80mg Discharge Plan Admission Admit Date/Time: 11/17/24 13:22 Attending Provider: Crow Dc Primary Care Provider: Care Physician,No Primary Instructions Additional Instructions / Restrictions: The bilateral groin incision sites are covered by Prevena vacuum dressings. These are to remain in place for 7 days postoperatively if possible and can be removed on 11/24/2024. To remove first hold down the power button until it turns off, then twist the white connector to disconnect the tubing at which point the purple foam will puff up, and then you can just peel the dressing off. If it begins to alarm, malfunction, or does not hold seal you may remove it sooner if needed. The incisions are closed with dermabond skin glue an prineo tape which will remain in place even after the overlying vacuum dressings are removed. The skin glue and tape will slowly peel away on its own with time. You may shower tomorrow. Soap and water can run over the incisions, pat gently to dry. Do not submerge the incision sites in water such as to take a bath, swim, etc for 3 weeks. Do not lift greater than 20 pounds for 3 weeks otherwise please proceed with activity and physical therapy as tolerated. Discharge Orders/Prescriptions Prescriptions: New acetaminophen 500 mg Tablet 1,000 mg PO Q8 Qty: 0 0RF docusate sodium 100 mg Capsule 100 mg PO BID PRN PRN (Reason: Constipation) Qty: 0 0RF oxycodone 5 mg Tablet 5 mg PO Q8H PRN PRN (Reason: Pain Score 4-10) 5 Days Qty: 15 0RF Continued nitroglycerin 0.4 mg tablet, sublingual 0.4 mg SUBLINGUAL Q5-15M PRN (Reason: chest pain) Qty: 25 3RF Rx Instructions: until response; do not exceed 3 doses per event vitamin D3-vitamin K2 125 mcg (5,000 unit)-100 mcg capsule 1 cap PO DAILY aspirin 81 MG tablet,chewable 81 mg PO DAILY@0800 magnesium sulfate Ointment 1 ea topical TID PRN PRN (Reason: cramps) atorvastatin 80 mg tablet 80 mg PO QHS Patient Comments: [NO ORIGINAL SIG] calcium carbonate-simethicone 500-20 mg tablet,chewable 1 - 2 tab PO .as directed PRN (Reason: reflux) furosemide 40 mg tablet 40 mg PO DAILY potassium chloride 10 mEq capsule, extended release 20 meq PO DAILY Qty: 180 3RF lisinopril 20 mg tablet 20 mg PO BID Qty: 180 3RF carvedilol [Coreg] 12.5 mg tablet 12.5 mg PO BID Qty: 180 3RF clopidogrel 75 mg tablet 75 mg PO DAILY Qty: 90 3RF Discontinued oxycodone 5 mg tablet 5 mg PO Q6H PRN (Reason: pain) 5 Days Qty: 20 0RF Referrals / Follow Up: Chris Marquez MD [Non-Staff] - Disposition Disposition (needs filled in before D/C Order can be placed): [facility]
--- NOTE | 2024-11-20 15:39 | PCM.TXEXTCAR ---
Diet Diet Order/Speech Therapy: INPATIENT Hospital Diet / Speech Therapy Order(s) 11/18/24 08:06 Diet: Regular - No Added Salt Routine Orders/Code Status Code Status: Full Code DC O2, CPAP, BIPAP needs Home O2 Discharge instructions: No Wound(s) Bilateral Groin: Wound Type: Surgical Incision (Bilateral groin incisions closed with dermabond skin glue and prineo tape to remain in place until it falls off; overlying this are Prevena wound vacs to be removed on 11/24/2024) puncture rt wrist (removal of artline): Wound Type: Puncture Therapies Weight Bearing: Full weight bearing Extremity Affected:: Bilateral Lower Physical Therapy: 5 times weekly therapy Occupational Therapy: 5 times weekly therapy Problem/Diagnosis (1) Atherosclerosis of [place] arteries of extremities with intermittent claudication, left leg: Status: Chronic Code(s): I70.212 - Atherosclerosis of [place] arteries of extremities with intermittent claudication, left leg Plan: She is POD#3 from R common/external iliac artery lithotripsy angioplasty and stent, R common fem endart, R to L fem-fem bypass, and bilateral sartorius flaps. Vascular exam is stable/improving, R pedal pulse now palpable, L pedal pulse with good doppler signals. Her pain is improving. Incision sites are satisfactory in appearance with Prevena vacs maintaining good seal. Plan for vacs to remain in place for 7 days postop to be removed 11/25/24. BPs have remained improved and now hypertensive this morning to systolic 160s; will restart home carvedilol, consider restarting home lisinopril with evening dose. Potassium improved to 3.5. Hgb stable at 9.1. Kidney function stable. She is appropriate for discharge pending precert approval for planned discharge to TCU. Allergies/Procedures Done in Hospital Allergies No Known Allergies Allergy (Verified 11/17/24 06:15) Procedures: - (R common/external iliac artery lithotripsy angioplasty and stent, R common fem endart, R to L fem-fem bypass, and bilateral sartorius flaps) Type of Care/Length of Stay Estimated LOS: Convalescent Care Less Than 30 days Type of Care Needed: Skilled Rehab Potential: Good Prognosis: Good Additional Orders/Day of Discharge Day of Discharge: 11/20/24 Dietary and Speech Recommendations Dietitian Recommendations/Changes: Continue regular, no added salt diet. Will monitor weight trends. Follow Up Care Please follow up with your Primary Care Physician in: 2-4 weeks Please Follow Up With: Tiana Wood PA When: 12/01/24 Discharge Plan Admission Admit Date/Time: 11/17/24 13:22 Attending Provider: Crow Dc Primary Care Provider: Care Physician,No Primary Instructions Additional Instructions / Restrictions: The bilateral groin incision sites are covered by Prevena vacuum dressings. These are to remain in place for 7 days postoperatively if possible and can be removed on 11/24/2024. To remove first hold down the power button until it turns off, then twist the white connector to disconnect the tubing at which point the purple foam will puff up, and then you can just peel the dressing off. If it begins to alarm, malfunction, or does not hold seal you may remove it sooner if needed. The incisions are closed with dermabond skin glue an prineo tape which will remain in place even after the overlying vacuum dressings are removed. The skin glue and tape will slowly peel away on its own with time. You may shower tomorrow. Soap and water can run over the incisions, pat gently to dry. Do not submerge the incision sites in water such as to take a bath, swim, etc for 3 weeks. Do not lift greater than 20 pounds for 3 weeks otherwise please proceed with activity and physical therapy as tolerated. Discharge Orders/Prescriptions Prescriptions: New acetaminophen 500 mg Tablet 1,000 mg PO Q8 Qty: 0 0RF docusate sodium 100 mg Capsule 100 mg PO BID PRN PRN (Reason: Constipation) Qty: 0 0RF oxycodone 5 mg Tablet 5 mg PO Q8H PRN PRN (Reason: Pain Score 4-10) 5 Days Qty: 15 0RF Continued nitroglycerin 0.4 mg tablet, sublingual 0.4 mg SUBLINGUAL Q5-15M PRN (Reason: chest pain) Qty: 25 3RF Rx Instructions: until response; do not exceed 3 doses per event vitamin D3-vitamin K2 125 mcg (5,000 unit)-100 mcg capsule 1 cap PO DAILY aspirin 81 MG tablet,chewable 81 mg PO DAILY@0800 magnesium sulfate Ointment 1 ea topical TID PRN PRN (Reason: cramps) atorvastatin 80 mg tablet 80 mg PO QHS Patient Comments: [NO ORIGINAL SIG] calcium carbonate-simethicone 500-20 mg tablet,chewable 1 - 2 tab PO .as directed PRN (Reason: reflux) furosemide 40 mg tablet 40 mg PO DAILY potassium chloride 10 mEq capsule, extended release 20 meq PO DAILY Qty: 180 3RF lisinopril 20 mg tablet 20 mg PO BID Qty: 180 3RF carvedilol [Coreg] 12.5 mg tablet 12.5 mg PO BID Qty: 180 3RF clopidogrel 75 mg tablet 75 mg PO DAILY Qty: 90 3RF Discontinued oxycodone 5 mg tablet 5 mg PO Q6H PRN (Reason: pain) 5 Days Qty: 20 0RF Referrals / Follow Up: Chris Marquez MD [Non-Staff] - Disposition Disposition (needs filled in before D/C Order can be placed): [facility]
--- NOTE | 2024-11-20 15:56 | CASEMGMT ---
Social Work SW spoke w/MANDIE Wood, pt was approved for TCU, she will come over and do the paperwork. SW let pt and family know, they are agreeable. SW let them know that we still have to wait for the precert to come through in the system, but pt will likely be going today. Pt and daughters state understanding. SW let Bre in TCU know, she will let this SW know or if it's after 4:30 let ICU know directly when pt is approved. Green sheet is on the chart in anticipation of precert coming through today. NAYELY Singleton
[2024-11-20] MEDS: oxyCODONE 5 MG Tablet PO (16:12)
[2024-11-20] MEDS: Carvedilol 12.5 MG Tablet PO (16:14)
[2024-11-20 16:52] VITALS: BP 148/52; PULSE 60; RESP 15; TEMP 36.2; O2SAT 98
--- OUTSIDE RECORDS SUMMARY | 2024-11-27 19:17 | XMS RPT_ITS | CCD ---
Author Organization [facility] Care Team Providers Care Thermometer Tester Name Role Phone MD Tsai Cyril S Unavailable Tyleris, Harumi Y Unavailable Unavailable RAJINDER Marsh, Jada Landers Unavailable Unavailable RAJINDER Marsh, Jada Landers Unavailable Unavailable Tyleris, Asaumi Y Unavailable Unavailable RAJINDER Contreras, Shahla Landers Unavailable Unavailabl e Yensho SALESPERSON CORSETS, Jessica A Unavailable Unavailab le Yensho SALESPERSON CORSETS, Jessica A Unavailable Unavailab le Katerin Rosase M Unavailable Unavailable Garza SALESPERSON CORSETS, Karolyn Radha Unavailable Unavaila ble Garza SALESPERSON CORSETS, Karolyn Radha Unavailable Unavaila ble RalphKaterine M Unavailable Unavailable Yensho SALESPERSON CORSETS, Jessica A Unavailable Unavailab pito Contreras RN, Shahla Landers Unavailable Unavailsilviano Marsh RN, Jada Landers Unavailable Unavailable Dr. Jolanta Grant Primary Care Provider Dr. Yuniel Tsai Attending Provider Dr. Yuniel Tsai Referring Provider [phone] Jolanta Grant Referring Provider Loree Marsh Attending Provider Unavailable Dr. Jolanta Grant Primary Care Provider Unavailable Primary Care Provider UnavailDr. Jolanta Nicole Primary Care Provider Dr. Jolanta Grant Referring Provider [phone] Loree Marsh Attending Provider Unavailable Roof ENGINE COWLING INSTALLER, ENGINE COWLING INSTALLER-C Hira Tiwari Attending Provider Jolanta Grant MD Primary Care Provider Jolanta Grant MD Primary Care Provider Jolanta Grant MD Primary Care Provider Jimmy CORDOBA, Dr. Perez Primary Care Provider Conrado PEDERSEN, Dr. Arroyo Attending Provider Conrado PEDERSEN, Dr. Arroyo Emergency Provider Jimmy CORDOBA, Dr. Perez Referring Provider Dao CORDOBA, Dr. Maria Attending Provider [phone] Dao CORDOBA, Dr. Maria Referring Provider Raven CORDOBA, Dr. Gerardo Attending Provider Stacie PEDERSEN, Dr. Andrews Attending Provider [phone] Stacie PEDERSEN, Dr. Andrews Emergency Provider Dao CORDOBA, Dr. Maria Admit Provider [phone] Dao CORDOBA, Dr. Maria Other Provider [phone] Care Physician, No Primary Primary Care Provider Unavailable Wood Tiana LOCKWOOD Attending Provider Dao, Crow Consulting Unavailable [place], Crow Admitting Unavailable Dao, Crow Referring Unavailable Wood, Tiana Attending Unavailable Care Physician, No Primary Primary Care Unava ilable Dao, Crow Attending Unavailable Dao, Crow Referring Unavailable Jimmy, Jolanta Primary Care Unavailable Oakfield, Crow Referring Unavailable Jimmy, Jolanta Primary Care Unavailable Akin Carbajal Attending Unavailable Jimmy, Jolanta Primary Care Unavailable Eulalio, [place] Attending Unavailable Jimmy, Jolanta Referring Unavailable Paty CHAPA, Hira Tiwari Attending Unavailable Jimmy, Jolanta Primary Care Unavailable Jimmy, Jolanta Primary Care Unavailable Eulalio, Yuniel Attending Unavailable Jimmy, Jolanta Primary Care Unavailable Jimmy, Jolanta Referring Unavailable Eulalio, [place] Attending Unavailable Elver, Shahid Chi Referring Unavailable Elver, Shahid Chi Admitting Unavailable Care Physician, No Primary Primary Care Unava ilable Wood, Tiana Consulting Unavailable Wood, Tiana Attending Unavailable Elver, Shahid Chi Consulting Unavailable Jimmy, Jolanta Primary Care Unavailable Keith Jaime Referring Unavailable Keith Jaime Attending Unavailable Eulalio, Yuniel Referring Unavailable Eulalio, Yuniel Attending Unavailable Jimmy, Jolanta Primary Care Unavailable Jimmy, Jolanta Primary Care Unavailable Jimmy, Jolanta Referring Unavailable Eulalio, [place] Attending Unavailable Jimmy, Jolanta Primary Care Unavailable Eulalio, Yuniel Attending Unavailable Jimmy, Jolanta Referring Unavailable Jimmy, Jolanta Primary Care Unavailable Eulalio, [place] Attending Unavailable [place], Crow Attending Unavailable Dao, Crow Referring Unavailable Jimmy, Jolanta Primary Care Unavailable Jimmy, Jolanta Primary Care Unavailable Dina Camp Attending Unavailable Jimmy, Jolanta Primary Care Unavailable Darryl Quinones Attending Unavailable [place], Crow Attending Unavailable [place], Crow Admitting Unavailable [place], Crow Referring Unavailable Care Physician, No Primary Primary Care Unava ilable Shahid Raya Chi Attending Unavailable Dao, Crow Attending Unavailable Jimmy, Jolanta Primary Care Unavailable Jimmy, Jolanta Referring Unavailable [place]field, Crow Consulting Unavailable [place], Crow Admitting Unavailable Dao, Crow Referring Unavailable Jimmy, Jolanta Primary Care Unavailable Dao, Crow Attending Unavailable Allergies Allergy Classification Reported Allergen(s) Allergy Type Date of Onset Reaction(s) Facility (20 sources) NKDA; Translations: [NKDA] drug allergy 3 [email or web address] Phone: NEGATED: Highlighted row has been ruled out! (4 sources) Observed No Known Drug Allergies at GE No Known Allergies 7 propensity to adverse reactions [email or web address] Phone: Medications Current Medications Medication Drug Class(es) Dates Sig (Normalized) Sig (Original) acetaminophen 500 mg oral tablet (1 source) Start: 11-20-2024 take 2 tablets by mouth every eight hours Acetaminophen 500 mg Tablet Active 1000 mg PO EVERY 8 HOURS 0 November 20, 2024 12:00am aspirin 81 mg chewable tablet (20 sources) Nonsteroidal Anti-inflammatory Drug Start: 09-27-2016 take 1 tablet by mouth once daily Aspirin 81 MG tablet,chewable Active 81 mg PO DAILY@0800 September 27, 2016 12:00am Start: 03-21-2012 take 1 tablet by karina once daily ASPIRIN 81 MG TABS One tablet by mouth daily ASPIRIN [id number] Carin Milligan Start: 03-21-2012 take 1 tablet by karina th once daily ASPIRIN 81 MG TABS One tablet by mouth daily ASPIRIN [id number] Carin Milligan Start: 03-21-2012 take 1 tablet by karina th once daily ASPIRIN EC 81 MG TBEC One tablet by mouth daily ASPIRIN [id number] LESLIE QuintanaC Comment on above: Take 81 mg by mouth once daily. atorvastatin 80 mg oral tablet (20 sources) HMG-CoA Reductase Inhibitor Start: take 1 tablet by mouth at bedtime Atorvastatin 80 mg tablet Active 80 mg PO AT BEDTIME November 02, 2024 12:00am Start: 12-06-2023 End: 07-02-2024 take 1 tablet by mouth at bedtime Atorvastatin 40 mg tablet Discontinued 40 mg PO AT BEDTIME March 16, 2024 8:44am July 02, 2024 12:29pm Start: 06-12-2012 End: 12-06-2023 take 1 tablet by mouth at bedtime Atorvastatin 80 mg tablet Discontinued 80 mg PO AT BEDTIME March 13, 2023 10:22am December 06, 2023 11:45am Comment on above: Take 80 mg by mouth once daily. Calcium Carbonate / Simethicone (2 sources) Start: 11-03-19 Calcium Carbonate-Simethicon e 500-20 mg tablet,chewable Active 1 - 2 {tbl} PO .as directed as needed for reflux November 02, 2024 12:00am docusate sodium 100 mg oral capsule (1 source) Start: 11-21-19 take 1 capsule by mouth twice daily as needed for constipation Docusate Sodium 100 mg Capsule Active 100 mg PO TWICE DAILY NEEDED as needed for Constipation November 20, 2024 12:00am furosemide 40 mg oral tablet (20 sources) Loop Diuretic Start: 11-03-19 take 1 tablet by mouth once daily Furosemide 40 mg tablet Active 40 mg PO DAILY November 02, 2024 12:00am Start: 04-29-2023 End: 11-02-2024 take 1 tablet by mouth every other day Furosemide 40 mg tablet Discontinued 40 mg PO every other day March 16, 2024 8:23am November 02, 2024 1:50pm Start: 07-12-2017 End: 04-29-2023 take 1 tablet by mouth once daily in the morning Furosemide 40 mg tablet Discontinued 40 mg PO EVERY MORNING March 13, 2023 10:22am April 29, 2023 12:34pm Start: 09-27-2016 End: 07-12-2017 take 1 tablet by mouth twice daily Furosemide 40 MG tablet Discontinued 40 mg PO TWICE DAILY September 27, 2016 12:00am July 12, 2017 1:21pm Start: 06-01-2013 take 1 tablet by karina once daily LASIX 40 MG TABS One tablet by mouth daily FUROSEMIDE [id number] Nichole Jackson ENGINE COWLING INSTALLER Start: 03-21-2012 End: 12-02-2012 take 1 tablet by mouth once daily LASIX 40 MG TABS One tablet by mouth daily FUROSEMIDE [id number] Nichole Jackson ENGINE COWLING INSTALLER Comment on above: Take 40 mg by mouth twice daily. lisinopril 20 mg oral tablet (20 sources) Angiotensin Converting Enzyme Inhibitor Start: 12-31-2023 End: 03-16-2024 take 1 tablet by mouth twice daily Lisinopril 20 mg tablet Active 20 mg PO TWICE A DAY 180 March 16, 2024 8:23am Start: 12-06-2023 End: 12-31-2023 take 1 tablet by mouth once daily Lisinopril 20 mg tablet Discontinued 20 mg PO daily 180 December 06, 2023 11:45am December 31, 2023 8:42am Start: 09-27-2016 End: 08-16-2017 take 1 tablet by mouth once daily Lisinopril 20 MG tablet Discontinued 20 mg PO DAILY September 27, 2016 12:00am August 16, 2017 10:13am Start: 03-27-2012 End: 12-06-2023 take 1 tablet by mouth twice daily Lisinopril 20 mg tablet Discontinued 20 mg PO TWICE A DAY 180 May 27, 2023 9:23am December 06, 2023 11:46am Comment on above: Take 20 mg by mouth twice daily. Magnesium Sulfate (2 sources) Start: 11-02-2024 Magnesium Sulf ate ointment Active 1 NMA TOPICAL 3 TIMES DAILY NEEDED as needed for cramps November 02, 2024 12:00am Start: 11-02-2024 Magnesium Sulf ate ointment Active NMA TOPICAL .2-3 times a day November 02, 2024 12:00am oxyCODONE hydrochloride 5 mg oral tablet (2 sources) Opioid Agonist Start: 11-20-2024 take 1 tablet by mouth every eight hours as needed for pain Oxycodone 5 mg Tablet Active 5 mg PO EVERY 8 HOURS NEEDED as needed for Pain Score 4-10 15 5 November 20, 2024 Start: 11-12-2024 End: 11-20-2024 take 1 tablet by mouth every six hours as needed for pain Oxycodone 5 mg tablet Discontinued 5 mg PO EVERY 6 HOURS as needed for pain 20 5 November 12, 2024 November 20, 2024 4:34pm Vitamin D3-Vitamin K2 125 mcg (5,000 unit)-100 mcg capsule (2 sources) Start: 12-06-2023 take 1 capsule by mouth once daily Vitamin D3-Vitamin K2 125 mcg (5,000 unit)-100 mcg capsule Active 1 NMA PO DAILY December 06, 2023 12:00am Completed/Discontinued Medications Medication Drug Class(es) Dates Sig (Normalized) Sig (Original) ALBUTEROL SULFATE (20 sources) beta2-Adrenergic Agonist Start: 10-11-2016 VENTOLIN HFA 108 (90 Base) MCG/ACT AERS ALBUTEROL SULFATE [id number] Karolyn Marvin Start: 10-11-2016 VENTOLIN HFA 1 08 (90 Base) MCG/ACT AERS ALBUTEROL SULFATE [id number] Karolyn Marvin Start: 09-27-2016 End: 01-23-2018 Albuterol Sulfate 1 INHALER inhaler Discontinued 2 NMA INHALATION EVERY 4 HOURS NEEDED as needed for Sob &/Or Wheezing September 27, 2016 12:00am January 23, 2018 11:18am Start: 09-27-2016 End: 01-23-2018 take 1 puff(s) by inhalation every four hours as needed Albuterol Sulfate Discontinued 2 PUFF INHALATION EVERY 4 HOURS NEEDED September 27, 2016 12:00am January 23, 2018 11:18am Start: 05-12-2014 take 2 puff(s) by in halation every four hours as needed for wheezing albuterol HFA (VENTOLIN HFA) 90 mcg/actuation inhaler Indications: Acute bronchitis, unspecified organism Inhale 2 Puffs as instructed every 4 hours as needed for Wheezing/Shortness of Breath. 1 Inhaler 09/20/2016 Active Comment on above: Inhale 2 Puffs as in structed every 4 hours as needed. Inhale 2 Puffs as in structed every 4 hours as needed for Wheezing/Shortness of Breath. amLODIPine 5 mg oral tablet (20 sources) Dihydropyridine Calcium Channel Marcellus Start: 03-21-20 12 End: 03-27-20 12 NORVASC 5 MG TABS 1/2 tablet 2 X daily AMLODIPINE BESYLATE [id number] Miles Del Castillo MD benzonatate 100 mg oral capsule (20 sources) Non-narcotic Antitussive Start: 09-21-19 17 End: 07-12-19 18 take 1 capsule by mouth three times daily as needed for cough Benzonatate 100 MG capsule Discontinued 100 mg PO 3 TIMES DAILY NEEDED as needed for Cough September 27, 2016 12:00am July 12, 2017 1:21pm Start: 05-12-2014 take 1 capsule by mo [facility] three times daily as needed for cough Benzonatate (TESSALON) 200 mg capsule Indications: Bronchitis Take 200 mg by mouth three times daily as needed for Cough. 40 capsule 0 05/12/2014 Active Comment on above: Take 200 mg by mouth three times daily as needed for Cough. Take 1 capsule by mo uth three times daily as needed. buPROPion hydrochloride 100 mg oral tablet (15 sources) Aminoketone Start: 7 End: 8 take 1 tablet by mouth twice daily Bupropion Hcl 100 MG tablet Discontinued 100 mg PO TWICE A DAY September 27, 2016 12:00am July 12, 2017 1:21pm Start: 09-25-2016 take 1 tablet by karina th twice daily buPROPion SR (WELLBUTRIN SR) 100 mg 12 hr tablet Take 1 tablet by mouth twice daily. For smoking cessation. 60 tablet 2 09/25/2016 Active Comment on above: Take 1 tablet by karina th twice daily. For smoking cessation. captopril 50 mg oral tablet (20 sources) Angiotensin Converting Enzyme Inhibitor Start: 2 End: 2 take 1 tablet by mouth three times daily CAPTOPRIL 50 MG TABS One tablet by mouth three times daily CAPTOPRIL [id number] Carin Milligan carvedilol 12.5 mg oral tablet (20 sources) alpha-Adrenergic Marcellus, beta-Adrenergic Marcellus Start: 8 End: 4 take 1 tablet by mouth twice daily Carvedilol (Coreg) 12.5 mg tablet Discontinued 12.5 mg PO TWICE A DAY 180 March 13, 2023 10:22am March 16, 2024 8:23am Start: 03-21-2012 End: 08-16-2017 take 1 tablet by mouth twice daily at mealtime Carvedilol 25 MG tablet Discontinued 25 mg PO TWICE DAILY WITH MEALS September 27, 2016 12:00am August 16, 2017 11:48am Start: 03-21-2012 take 1 tablet by karina twice daily COREG 12.5 MG TABS One tablet by mouth twice daily CARVEDILOL [id number] Nichole Jackson NP Start: 03-21-2012 COREG 25 MG TA BS 1/2 tablet 2 X daily CARVEDILOL [id number] Savanah Jade PA-C Comment on above: Take 25 mg by mouth twice daily with meals. ciprofloxacin 250 mg oral tablet (8 sources) Quinolone Antimicrobial Start: 07-20-19 End: 12-14-19 21 take 1 tablet by mouth twice daily Ciprofloxacin Hcl (Cipro) 250 mg tablet Discontinued 250 mg PO TWICE A DAY July 20, 2020 1:00am December 13, 2020 2:48pm clopidogrel 75 mg oral tablet (20 sources) [id number] Platelet Inhibitor Start: 03-27-20 End: 10-28-19 take 1 tablet by mouth once daily Clopidogrel 75 mg tablet Discontinued 75 mg PO DAILY October 21, 2023 8:03am October 27, 2024 7:26am Comment on above: Take 75 mg by mouth once daily. COLESTIPOL HCL (20 sources) Bile Acid Sequestrant Start: 03-21-20 12 End: 03-27-20 12 take 1 tablet by mouth twice daily COLESTID 1 GM TABS One tablet by mouth twice daily COLESTIPOL HCL [id number] Miles Del Castillo MD Start: 03-21-2012 take 1 tablet by karina twice daily COLESTID 1 GM TABS One tablet by mouth twice daily COLESTIPOL HCL [id number] Carinyamil Milligan Start: 03-21-2012 End: 03-27-2012 take 1 tablet by mouth twice daily COLESTID 1 GM TABS One tablet by mouth twice daily COLESTIPOL HCL [id number] Miles Del Castillo MD doxycycline hyclate 100 mg oral capsule (8 sources) Tetracycline-class Drug Start: 09-27-2016 End: 07-12-2017 take 1 capsule by mouth twice daily Doxycycline Hyclate 100 MG capsule Discontinued 100 mg PO TWICE A DAY September 27, 2016 12:00am July 12, 2017 1:21pm famotidine 20 mg oral tablet (4 sources) Histamine-2 Receptor Antagonist Start: 11-02-2024 End: 11-13-2024 take 1 tablet by mouth once daily Famotidine 20 mg tablet Discontinued 20 mg PO .qd November 02, 2024 12:00am November 13, 2024 2:31pm On Hold: pt not taking - using tums Start: 10-18-2024 End: 10-22-2024 take 1 tablet by mouth once daily Famotidine (Pepcid) 20 mg tablet Discontinued 20 mg PO DAILY October 18, 2024 12:00am October 22, 2024 2:08pm 120 actuat fluticasone propionate 0.11 mg/actuat metered dose inhaler (20 sources) Corticosteroid Start: 07-12-2017 End: 01-06-2018 Fluticasone Propionate (Flovent Hfa) 110 mcg/actuation HFA aerosol inhaler Discontinued 1 NMA INHALATION Q12H July 12, 2017 1:00am January 06, 2018 12:47pm Start: 07-12-2017 End: 01-06-2018 take 1 puff(s) by inhalation every twelve hours Fluticasone Propionate (Flovent Hfa) 110 mcg/actuation HFA aerosol inhaler Discontinued 1 PUFF INHALATION Q12H July 12, 2017 1:00am January 06, 2018 12:47pm Start: 02-01-2017 FLOVENT HFA 11 0 MCG/ACT AERO Take as directed FLUTICASONE PROPIONATE HFA [id number] Yuniel Tsai MD Start: 02-01-2017 FLOVENT HFA 11 0 MCG/ACT AERO Take as directed FLUTICASONE PROPIONATE HFA [id number] Yuniel Tsai MD Start: 10-11-2016 End: 01-23-2017 FLOVENT HFA 220 MCG/ACT AERO One puff two times daily FLUTICASONE PROPIONATE HFA [id number] Karolyn Marvin Start: 10-11-2016 End: 01-23-2017 FLOVENT HFA 220 MCG/ACT AERO One puff two times daily FLUTICASONE PROPIONATE HFA [id number] Aldo Marrero Ezekiel Start: 10-11-2016 FLOVENT HFA 22 0 MCG/ACT AERO One puff two times daily FLUTICASONE PROPIONATE HFA [id number] Karolyn Marvin Start: 09-27-2016 End: 07-12-2017 Fluticasone Propionate 1 INH ALER inhaler Discontinued 1 NMA INHALATION TWICE A DAY September 27, 2016 12:00am July 12, 2017 1:18pm Start: 09-27-2016 End: 07-12-2017 take 1 puff(s) by inhalation twice daily Fluticasone Propionate Discontinued 1 PUFF INHALATION TWICE A DAY September 27, 2016 12:00am July 12, 2017 1:18pm Start: 09-25-2016 take 1 puff(s) by in halation twice daily fluticasone (FLOVENT) 220 mcg/actuation inhaler Indications: Asthmatic bronchitis with acute exacerbation (HCC) Inhale 1 Puff as instructed twice daily. 1 Inhaler 2 09/25/2016 Active Comment on above: Inhale 1 Puff as ins tructed twice daily. 12 hr guaiFENesin 600 mg extended release oral tablet (15 sources) Start: 7 End: 8 take 1 tablet by mouth twice daily Guaifenesin 600 MG tablet extended release 12hr Discontinued 1200 mg PO TWICE A DAY September 27, 2016 12:00am July 12, 2017 1:21pm Start: 09-20-2016 End: 07-12-2017 take 2 tablets by mouth twice daily guaiFENesin (MUCINEX) 600 mg 12 hr tablet Take 2 tablets by mouth twice daily. 30 tablet 09/20/2016 Active Comment on above: Take 2 tablets by mo [facility] twice daily. isosorbide mononitrate 10 mg oral tablet (20 sources) Nitrate Vasodilator Start: 2 End: 3 take 1 tablet by mouth twice daily MONOKET 10 MG TABS One tablet by mouth twice daily ISOSORBIDE MONONITRATE [id number] Yuniel Tsai MD Start: 03-21-2012 [facility] daily IMDUR 120 MG [id number] One tablet by mouth daily ISOSORBIDE MONONITRATE [id number] Carin Milligan Start: 03-21-2012 End: 03-27-2012 take 1 tablet by mouth once daily IMDUR 120 MG [id number] One tablet by mouth daily ISOSORBIDE MONONITRATE [id number] Miles Del Castillo MD loratadine 10 mg oral capsule (8 sources) Start: 07-25-2018 End: 03-19-2022 take 1 capsule by mouth once daily Loratadine 10 mg capsule Discontinued 10 mg PO DAILY July 25, 2018 1:00am March 19, 2022 10:31am magnesium citrate 100 mg oral tablet (2 sources) Start: 07-02-2024 End: 11-02-2024 take 1 capsule by mouth once daily Magnesium Citrate 100 mg capsule Discontinued 100 mg PO daily July 02, 2024 1:00am November 02, 2024 1:41pm MULTIPLE VITAMIN (20 sources) Start: 03-21-2012 take 1 tablet by mouth once daily MULTIVITAMINS TABS One tablet by mouth daily MULTIPLE VITAMIN [id number] Carin Milligan Start: 03-21-2012 End: 12-30-2014 take 1 tablet by mouth once daily MULTIVITAMINS TABS One tablet by mouth daily MULTIPLE VITAMIN [id number] Yuniel Tsai MD MULTIPLE VITAMIN (6 sources) Start: 03-21-2012 End: 12-30-2014 take 1 tablet by mouth once daily MULTIVITAMINS TABS One tablet by mouth daily MULTIPLE VITAMIN [id number] Yuniel Tsai MD Start: 03-21-2012 take 1 tablet by karina once daily MULTIVITAMINS TABS One tablet by mouth daily MULTIPLE VITAMIN [id number] Carin Milligan nitroglycerin 0.4 mg sublingual tablet (20 sources) Nitrate Vasodilator Start: 08-16-2017 End: 10-16-2022 Nitroglycerin 0.4 mg tablet, sublingual Discontinued 0.4 mg SL every 5 to 15 minutes as needed for chest pain August 27, 2019 3:08pm October 16, 2022 10:46am until response; do not exceed 3 doses per event Start: 08-16-2017 End: 10-16-2022 Nitroglycerin Discontinued 0 .4 MG SL every 5 to 15 minutes August 27, 2019 3:08pm October 16, 2022 10:46am until response; do not exceed 3 doses per event Start: 03-21-2012 End: 10-11-2016 NITROSTAT 0.4 MG SUBL 1 tabl et under tongue every 5 min up to 3 X NITROGLYCERIN [id number] Nikita Hogan MD potassium chloride 10 meq extended release oral capsule (20 sources) Start: 07-20-2020 End: 10-21-2023 Potassium Chloride 10 mEq capsule, extended release Discontinued 0 .ROUTE .COMPLEX 180 August 13, 2022 5:41pm October 16, 2022 10:34am TAKE 2 CAPSULES EVERY DAY Start: 07-20-2020 End: 10-16-2022 Potassium Chloride Discontin ued 0 .ROUTE .COMPLEX 180 August 13, 2022 5:41pm October 16, 2022 10:34am TAKE 2 CAPSULES EVERY DAY Start: 05-31-2020 End: 07-20-2020 take 1 capsule by mouth once daily Potassium Chloride 10 mEq capsule, extended release Discontinued 10 meq PO DAILY July 19, 2020 3:43pm July 20, 2020 2:33pm Start: 07-01-2012 End: 12-02-2012 KLOR-CON M20 20 MEQ CR-TABS one and 1/2 tablets by mouth daily POTASSIUM CHLORIDE RAY CR [id number] Yuniel Tsai MD Start: 07-01-2012 KLOR-CON M20 2 0 MEQ CR-TABS one and 1/2 tablets by mouth daily POTASSIUM CHLORIDE RAY CR [id number] Miles Del Castillo MD Start: 07-01-2012 End: 12-02-2012 KLOR-CON M20 20 MEQ CR-TABS one and 1/2 tablets by mouth daily POTASSIUM CHLORIDE RAY CR [id number] Yuniel Tsai MD Start: 04-10-2012 KLOR-CON M20 C R-TABS One and 1/2 tablet by mouth daily POTASSIUM CHLORIDE RAY CR CR-TABS [id number] Yasmine Lam RN Start: 03-27-2012 End: 06-12-2012 take 1 tablet by mouth once daily KLOR-CON 10 CR-TABS One tablet by mouth daily POTASSIUM CHLORIDE CR-TABS [id number] Miles Del Castillo MD Start: 03-27-2012 End: 06-12-2012 take 1 tablet by mouth once daily KLOR-CON 10 CR-TABS One tablet by mouth daily POTASSIUM CHLORIDE CR-TABS [id number] Miles Del Castillo MD Start: 03-27-2012 take 1 tablet by karina th once daily KLOR-CON 10 CR-TABS One tablet by mouth daily POTASSIUM CHLORIDE CR-TABS [id number] Miels Del Castillo MD pravastatin sodium 80 mg oral tablet (20 sources) HMG-CoA Reductase Inhibitor Start: 03-27-2012 End: 06-12-2012 take 1 tablet by mouth once daily at bedtime PRAVASTATIN SODIUM 80 MG TABS One tablet by mouth daily at bedtime PRAVASTATIN SODIUM [id number] Miles Del Castillo MD predniSONE 20 mg oral tablet (8 sources) Start: 09-27-2016 End: 07-12-2017 take 3 tablets by mouth once daily Prednisone 20 MG tablet Discontinued 60 mg PO DAILY September 27, 2016 12:00am July 12, 2017 1:21pm Start: 09-27-2016 End: 07-12-2017 take 60 mg by mouth once daily Prednisone Discontinued 60 MG PO DAILY September 27, 2016 12:00am July 12, 2017 1:21pm simvastatin 80 mg oral tablet (20 sources) HMG-CoA Reductase Inhibitor Start: 03-21-2012 End: 03-27-2012 take 1 tablet by mouth at bedtime ZOCOR 80 MG TABS One tablet by mouth at bedtime. SIMVASTATIN [id number] Miles Del Castillo MD triamcinolone acetonide 1 mg/ml topical cream (8 sources) Corticosteroid Start: 09-12-2021 End: 12-06-2023 Triamcinolone Acetonide 0.1 % cream Discontinued 1 NMA TOPICAL TWICE A DAY as needed September 12, 2021 12:00am December 06, 2023 11:15am Problems Active Problems Problem Classification Problem Date Documented Date Episodic/Chronic Cardiac dysrhythmias (13 sources) Sinus node dysfunction; Translations: [Sick sinus syndrome] Onset: 07-09-2024 Chronic Chronic obstructive pulmonary disease and bronchiectasis (20 sources) Bronchiectasis; Translations: [Bronchiectasis, uncomplicated] Onset: 11-01-2016 Resolved: 01-31-2017 11-01-2016 Chronic Complication of device; implant or graft (8 sources) Arteriosclerosis of coronary artery bypass graft; Translations: [Atherosclerosis of coronary artery bypass graft(s) without angina pectoris] 06-06-2020 Chronic Conduction disorders (20 sources) Atrioventricular block; Translations: [Cardiac defibrillator in situ] Onset: 03-21-2012 03-21-2012 Chronic Comment on above: Implanted @ [facility] 02/22; Gen change 08/04/[address] [facility] [place] per Dr. Juan Cosme. Congestive heart failure; nonhypertensive (14 sources) Chronic systolic heart failure; Translations: [Chronic systolic (congestive) heart failure] Onset: 07-09-2024 Chronic Coronary atherosclerosis and other heart disease (20 sources) Coronary arteriosclerosis; Translations: [Atherosclerotic heart disease of [place] coronary artery without angina pectoris] Onset: 07-25-1996 Resolved: 01-31-2017 01-31-2017 Chronic Disorders of lipid metabolism (20 sources) Hyperlipidemia; Translations: [Hyperlipidemia, unspecified] Onset: 03-21-2012 03-21-2012 Chronic Essential hypertension (20 sources) Hypertensive disorder; Translations: [Essential hypertension] Onset: 03-21-2012 03-21-2012 Chronic Fluid and electrolyte disorders (16 sources) Hypokalemia; Translations: [Hypokalemia] Onset: 03-21-2012 03-21-2012 Episodic Heart valve disorders (20 sources) Nonrheumatic mitral (valve) prolapse; Translations: [Nonrheumatic aortic (valve) stenosis] Onset: 03-21-2012 01-31-2017 Chronic Malaise and fatigue (1 source) Other malaise; Translations: [Other malaise] Onset: 11-26-2024 Episodic Other aftercare (1 source) Encounter for surgical aftercare following surgery on the circulatory system; Translations: [Encounter for surgical aftercare following surgery on the circulatory system] Onset: 11-26-2024 Episodic Other circulatory disease (8 sources) History of bradycardia; Translations: [Personal history of other diseases of the circulatory system] 08-16-2017 Episodic Other circulatory disease (8 sources) Abnormal radial pulse; Translations: [Other specified symptoms and signs involving the circulatory and respiratory systems] 09-12-2021 Episodic Other circulatory disease (2 sources) Other specified symptoms and signs involving the circulatory and respiratory systems; Translations: [Other symptoms involving cardiovascular system] Episodic Other connective tissue disease (2 sources) Pain in lower limb; Translations: [Pain in leg, unspecified] 10-26-2024 Episodic Other connective tissue disease (1 source) Pain in left leg; Translations: [Pain in left leg] Onset: 10-22-2024 Episodic Other nervous system disorders (2 sources) Other acute postprocedural pain; Translations: [Other acute postprocedural pain] Onset: 11-26-2024 Episodic Peripheral and visceral atherosclerosis (20 sources) Intermittent claudication; Translations: [Peripheral vascular disease, unspecified] Onset: 12-12-2023 Chronic Comment on above: CTA images reviewed, left common iliac occlusion, left common femoral moderate stenosis, left SFA occlusion with popliteal reconstitution right common/external iliac stenosis with calcification, right common femoral calcified severe stenosis, right SFA severe diffuse stenosis Residual codes; unclassified (8 sources) History of syncope; Translations: [Personal history of other specified conditions] 08-16-2017 Episodic Residual codes; unclassified (8 sources) Finding of systemic arterial pressure; Translations: [Other general symptoms and signs] 10-04-2021 Episodic Residual codes; unclassified (2 sources) Tobacco use and exposure - finding; Translations: [Tobacco use] 10-26-2024 Episodic Residual codes; unclassified (1 source) Tobacco use; Translations: [Tobacco use] Onset: 11-26-2024 Episodic Screening or history of mental health and substance abuse (11 sources) Tobacco dependence syndrome; Translations: [Nicotine dependence, unspecified, uncomplicated] Onset: 01-23-2017 01-23-2017 Chronic Substance-related disorders (8 sources) Nicotine dependence; Translations: [Nicotine dependence, unspecified, uncomplicated] 08-04-2020 Chronic Unclassified (12 sources) Implantation of automatic cardiac defibrillator ; Translations: [Presence of automatic (implantable) cardiac defibrillator] Onset: 09-29-2012 09-29-2012 Unclassified (3 sources) Long-term drug therapy; Translations: [Other terminal manager (current) drug therapy] Onset: 03-21-2012 03-21-2012 Past or Other Problems Problem Classification Problem Date Documented Da te Episodic/Chronic Coronary atherosclerosis and other heart disease (20 sources) Coronary angioplasty status; Translations: [History of myocardial infarction] Onset: 04-28-1997 03-21-2012 Episodic Other aftercare (12 sources) Other fci (current) drug therapy; Translations: [Other fci (current) drug therapy] Onset: 03-21-2012 03-21-2012 Episodic Other circulatory disease (12 sources) History of myocardial infarction; Translations: [Old myocardial infarction] Onset: 03-21-2012 03-21-2012 Episodic Other nutritional; endocrine; and metabolic disorders (20 sources) Body mass index (BMI) 25.0-25.9, adult; Translations: [Body mass index (BMI) 25.0-25.9, adult] Onset: 07-06-2015 Resolved: 06-28-2016 06-28-2016 Episodic Syncope (15 sources) Syncope and collapse; Translations: [Syncope and collapse] Onset: 03-21-2012 03-21-2012 Episodic Unclassified (20 sources) Family history of ischemic heart disease and other diseases of the circulatory system; Translations: [Family history of ischemic heart disease and other diseases of the circulatory system] Resolved: 01-31-2017 01-31-2017 Episodic Results Test Name Value Interpretation Reference Range Facility Abdomen Single Viewon 06-04- 2025 Abdomen Single View [facility] Imaging Services [address] [place] [address] Abdomen Single View MR#: [id number] Acct: [id number] Name: NELLI RIVERS Rep #: [id number] : 1945 F 79 From: Aly Ashby MD PCP: Care Physician,No Primary Status: ADM IN Study: Abdomen Single View Date of Exam: 11/25/24 Exam# [id number] Ordering Dr: Shahid Raya MD PROCEDURE: ABDOMEN SINGLE VIEW 11/25/2024 REASON FOR EXAM: FEELS GASSY. TECHNIQUE: Single view abdomen. COMPARISON: None. FINDINGS: There is a nonobstructive bowel gas pattern. There are multiple endoluminal stents in the right common iliac and right external iliac arteries. There are vascular clips in the left inguinal region. Note is made of a multi lead pacemaker in the patient is status post median sternotomy. There is multilevel degenerative disc disease of the lower lumbar spine. 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 RAD/Abdomen Single View IMPRESSION: No evidence of bowel obstruction. Other findings as noted. Reading Location: [id number] CC: Dr. Shahid Raya MD; No Primary Care Physician Job Forwarder: Signed Normal [facility] Consultation - Surgicalon Consultation - Surgical [facility] Records Department [address] [place] [address] Consultation - Surgical 11/24/24 1344 MR#: [id number] Acct: [id number] Name: NELLI RIVERS Rep #: [id number] : 1945 79 From: Tiana LOCKWOOD PCP: Care Physician,No Primary Status:ADM IN [facility] Assessment Plan Assessment/Plan (1) Atherosclerosis of [place] arteries of extremities with intermittent claudication, left leg: (2) PAD (peripheral artery disease): PLAN: Plan I removed the Prevena vacuum dressings from the bilateral groin incision sites; the incision sites are satisfactory in appearance, well-healing. I did not appreciate any drainage on my exam, OK to leave these sites open to air, keep clean and dry. If drainage is noted, then OK to apply dry gauze dressing and change daily or more often as needed to keep clean and dry. OK for showers, soap and water can rinse over the incision sites, but dry well after. No baths/submerging the incisions in water for at least 2 additional weeks. Vascular exam of the bilateral lower extremities remains stable; + signal in the bypass and bilateral DP/PT. Current L foot tingling pain sounds consistent with reperfusion, continue to monitor and if worsening would obtain arterial duplex and ABIs more urgently. Otherwise, will place these orders to be completed on an outpatient basis. Please continue with ASA 81mg daily, Plavix 75mg daily, and Atorvastatin 80mg daily. She is currently scheduled for outpatient follow-up in the office on 12/01/24; if she remains in TCU will plan to see her here next week, if she is discharged at that time will see her in the office. HPI Consult Data Date of Consult: 11/24/24 HPI Narrative HPI Narrative: NELLI RIVERS, is a 79 F who is admitted to TCU for ongoing rehabilitation prior to returning to home after recent R common/external iliac artery lithotripsy angioplasty and stent, R common fem endart, R to L fem-fem bypass, and bilateral sartorius flaps on 11/17/24 to address LLE rest pain and severe multilevel disease bilaterally. She reports she is doing well overall, she still has some expected discomfort at the groin incision sites but this continues to improve day by day. She will has the bilateral Prevena vacuum dressings in place, these have been maintaining good seal. She reports some tingling pain into her L foot but otherwise no pain in her legs with walking. She feels she has been progressing well with therapy. She did have postoperative anemia and received 1 unit PRBC postop. Repeat CBC on 11/21 showed Hgb uptrending to 9.9. [facility] Medical History (Updated 11/20/24 @ 20:[address] 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) Nicotine dependence Essential (primary) hypertension Ischemic cardiomyopathy Chronic systolic congestive heart failure Atrioventricular block Old myocardial infarction Atherosclerosis of coronary artery 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 Tobacco abuse Psoriasis Hypercholesteremia Syncope and collapse Hyperlipemia Hypokalemia History of syncope History of sinus bradycardia Home Medications ???Medication ???Instructions ???Recorded ???Last Taken ???Type aspirin 81 mg chewable tablet 81 mg PO DAILY@0800 blood thinner 09/27/16 11/20/24 08:50 History nitroglycerin 0.4 mg sublingual 0.4 mg sublingual Q5-15M PRN chest 10/16/22 Unknown Rx tablet pain #25 tabs potassium chloride 10 mEq 20 meq (2 x 10 mEq) PO DAILY 10/2011/20/24 08:50 Rx capsule,extended release supplement #180 caps vitamin D3 125 mcg (5,000 1 cap PO DAILY supplement 12/06/23 11/16/24 History unit)-vitamin K2 100 mcg capsule carvedilol 12.5 mg tablet (Coreg) 12.5 mg PO BID bp #180 tabs 03/1611/20/24 16:15 Rx lisinopril 20 mg tablet 20 mg PO BID bp #180 tabs 03/16/24 11/16/24 Rx clopidogrel 75 mg tablet 75 mg PO DAILY blood thinner #90 0 10/27/24 11/20/24 08:50 Rx tabs atorvastatin 80 mg tablet 80 mg PO QHS cholesterol 11/02/24 11/19/24 22:00 History calcium carbonate 500 1 - 2 tab PO .as directed PRN 10/22 08/18 Unknown History mg-simethicone 20 mg chewable reflux tablet furosemide 40 mg tablet 40 mg PO DAILY dieretic 11/02/24 0 11/20/24 08:50 History magnesium sulfate 1 ea topical TID PRN PRN cramps Unknown History acetaminophen 500 mg tablet 1,000 mg (2 x 500 mg) PO Q8 Pain 0 11/20/24 11/20/24 13:30 Rx #0 tabs docusate sodium 100 mg capsule 100 mg PO BID PRN PRN Constipation 11/20/24 11/20/24 13:30 Rx #0 caps oxycodone 5 mg tablet 5 mg PO Q8H PRN PRN P (more content not included)... Normal [facility] Basic Metabolic Profile (BMP )on 11-22-2024 BUN/CRE 16.3 RATIO Normal 10-20 [facility] Comment on above: Performed By: #### L 500.2500, L100.0100 #### [facility] [address] [place], [address] Calcium [Mass/Vol] 9.0 mg/dL Normal 7.6-11.0 [facility] Comment on above: Performed By: #### L 500.2500, L100.0100 #### [facility] [address] [place], [address] Chloride [Moles/Vol] 104 mmol/L Normal 98-108 [facility] Comment on above: Performed By: #### L 500.2500, L100.0100 #### [facility] [address] [place], [address] CO2 [Moles/Vol] 24.7 mmol/L Normal 21.0-32.0 [facility] Comment on above: Performed By: #### L 500.2500, L100.0100 #### [facility] [address] [place], [address] Creatinine [Mass/Vol] 0.89 mg/dL Normal 0.70-1.20 [facility] Comment on above: Performed By: #### L 500.2500, L100.0100 #### [facility] [address] [place], [address] ECRCL 46.26 ml/min Low 50-250 [facility] Comment on above: Performed By: #### L 500.2500, L100.0100 #### [facility] [address] [place], [address] GAP 10 Normal 5-15 [facility] Comment on above: Performed By: #### L 500.2500, L100.0100 #### [facility] [address] [place], [address] GFR/1.73 sq M.predicted among non-blacks MDRD (S/P/Bld) [Vol rate/Area] 66 mL/min/{1.73_m2} Normal >60 [facility] Comment on above: Result Comment: mL/m in/1.73m2 CKD-EPI Creatinine Equation (2020) Performed By: #### L 500.2500, L100.0100 #### [facility] [address] [place], [address] Glucose [Mass/Vol] 100 mg/dL High 70-99 [facility] Comment on above: Performed By: #### L 500.2500, L100.0100 #### [facility] [address] [place], [address] Potassium [Moles/Vol] 4.2 mmol/L Normal 3.3-5.1 [facility] Comment on above: Performed By: #### L 500.2500, L100.0100 #### [facility] [address] [place], [address] Sodium [Moles/Vol] 139 mmol/L Normal 133-145 [facility] Comment on above: Performed By: #### L 500.2500, L100.0100 #### [facility] [address] [place], [address] Urea nitrogen [Mass/Vol] 15 mg/dL Normal 4-19 [facility] Comment on above: Performed By: #### L 500.2500, L100.0100 #### [facility] [address] [place], [address] Basic Metabolic Profile (BMP )on 11-21-2024 BUN/CRE 14.8 RATIO Normal 10-20 [facility] Comment on above: Performed By: #### L 500.2500, L100.0100 #### [facility] [address] [place], [address] Calcium [Mass/Vol] 8.8 mg/dL Normal 7.6-11.0 [facility] Comment on above: Performed By: #### L 500.2500, L100.0100 #### [facility] [address] [place], [address] Chloride [Moles/Vol] 105 mmol/L Normal 98-108 [facility] Comment on above: Performed By: #### L 500.2500, L100.0100 #### [facility] [address] [place], [address] CO2 [Moles/Vol] 23.4 mmol/L Normal 21.0-32.0 [facility] Comment on above: Performed By: #### L 500.2500, L100.0100 #### [facility] [address] [place], [address] Creatinine [Mass/Vol] 0.82 mg/dL Normal 0.70-1.20 [facility] Comment on above: Performed By: #### L 500.2500, L100.0100 #### [facility] [address] [place], [address] ECRCL 50.20 ml/min Normal 50-250 [facility] Comment on above: Performed By: #### L 500.2500, L100.0100 #### [facility] [address] [place], [address] GAP 11 Normal 5-15 [facility] Comment on above: Performed By: #### L 500.2500, L100.0100 #### [facility] [address] [place], [address] GFR/1.73 sq M.predicted among non-blacks MDRD (S/P/Bld) [Vol rate/Area] 73 mL/min/{1.73_m2} Normal >60 [facility] Comment on above: Result Comment: mL/m in/1.73m2 CKD-EPI Creatinine Equation (2020) Performed By: #### L 500.2500, L100.0100 #### [facility] [address] [place], [address] Glucose [Mass/Vol] 103 mg/dL High 70-99 [facility] Comment on above: Performed By: #### L 500.2500, L100.0100 #### [facility] [address] [place], [address] Potassium [Moles/Vol] 3.8 mmol/L Normal 3.3-5.1 [facility] Comment on above: Performed By: #### L 500.2500, L100.0100 #### [facility] [address] [place], [address] Sodium [Moles/Vol] 139 mmol/L Normal 133-145 [facility] Comment on above: Performed By: #### L 500.2500, L100.0100 #### [facility] [address] [place], [address] Urea nitrogen [Mass/Vol] 12 mg/dL Normal 4-19 [facility] Comment on above: Performed By: #### L 500.2500, L100.0100 #### [facility] [address] [place], [address] CBC W/Diff, Automatedon 05-3 Absolute Lymph 2.03 X10 3/uL Normal 0.83-4.51 [facility] Comment on above: Performed By: #### L 500.2500, L100.0100 #### [facility] [address] [place], [address] Absolute Neut 6.8 X10 3/uL Normal 2.0-7.7 [facility] Comment on above: Performed By: #### L 500.2500, L100.0100 #### [facility] [address] [place], [address] Basophils/100 WBC (Bld) 0.2 % Normal 0-1 [facility] Comment on above: Performed By: #### L 500.2500, L100.0100 #### [facility] [address] [place], [address] Eosinophils/100 WBC (Bld) 1.1 % Normal 0-5 [facility] Comment on above: Performed By: #### L 500.2500, L100.0100 #### [facility] [address] [place], [address] Erythrocyte distribution width (RBC) [Ratio] 13.6 % Normal 11.6-14.6 [facility] Comment on above: Performed By: #### L 500.2500, L100.0100 #### [facility] [address] [place], [address] Hematocrit (Bld) [Volume fraction] 28.9 % Low 37-47 [facility] Comment on above: Performed By: #### L 500.2500, L100.0100 #### [facility] [address] [place], [address] Hemoglobin (Bld) [Mass/Vol] 9.9 g/dL Low 12.0-15.0 [facility] Comment on above: Performed By: #### L 500.2500, L100.0100 #### [facility] [address] [place], [address] IG% 0.400 Normal 0.0-0.9 [facility] Comment on above: Result Comment: IG% - Immature Granulocytes (promyelocytes, myelocytes and metamyelocytes) > 1% indicates that a LEFT SHIFT is Present. Performed By: #### L 500.2500, L100.0100 #### [facility] [address] [place], [address] Lymphocytes/100 WBC (Bld) 21.6 % Normal 19-41 [facility] Comment on above: Performed By: #### L 500.2500, L100.0100 #### [facility] [address] [place], [address] MCH (RBC) [Entitic mass] 31.1 pg Normal 27.0-32.0 [facility] Comment on above: Performed By: #### L 500.2500, L100.0100 #### [facility] [address] [place], [address] MCHC (RBC) [Mass/Vol] 34.3 g/dL Normal 32-36 [facility] Comment on above: Performed By: #### L 500.2500, L100.0100 #### [facility] [address] [place], [address] MCV (RBC) [Entitic vol] 90.9 fL Normal 81-99 [facility] Comment on above: Performed By: #### L 500.2500, L100.0100 #### [facility] [address] [place], [address] Monocytes/100 WBC (Bld) 4.8 % Normal 0-10 [facility] Comment on above: Performed By: #### L 500.2500, L100.0100 #### [facility] [address] [place], [address] Neutrophils/100 WBC (Bld) 71.9 % High 47-70 [facility] Comment on above: Performed By: #### L 500.2500, L100.0100 #### [facility] [address] [place], [address] Nucleated RBC (Bld) [#/Vol] 0 10*3/uL Normal 0-5 [facility] Comment on above: Performed By: #### L 500.2500, L100.0100 #### [facility] [address] [place], [address] Platelet mean volume (Bld) [Entitic vol] 10.0 fL Normal 6.2-12.0 [facility] Comment on above: Performed By: #### L 500.2500, L100.0100 #### [facility] [address] [place], [address] Platelets (Bld) [#/Vol] 228 10*3/uL Normal 150-450 [facility] Comment on above: Performed By: #### L 500.2500, L100.0100 #### [facility] [address] [place], [address] RBC (Bld) [#/Vol] 3.18 10*6/uL Low 4.2-5.4 [facility] Comment on above: Performed By: #### L 500.2500, L100.0100 #### [facility] [address] [place], [address] RDW SD 45.1 fl High 35.1-43.9 [facility] Comment on above: Performed By: #### L 500.2500, L100.0100 #### [facility] [address] [place], [address] WBC (Bld) [#/Vol] 9.4 10*3/uL Normal 4.4-11.0 [facility] Comment on above: Performed By: #### L 500.2500, L100.0100 #### [facility] [address] [place], [address] Absolute lymphocyte countOrd ered By: Tiana Wood on 11-20-2024 Lymphocytes Auto (Unsp spec) [#/Vol] 1.92 10*3/uL 0.83-4.51 [facility] Absolute neutrophil countOrd ered By: Tiana Wood on 11-20-2024 Neutrophils (Bld) [#/Vol] 7.4 10*3/uL 2.0-7.7 [facility] Anion gap in Serum or Plasma Ordered By: Tiana Wood on 11-20-2024 Anion gap [Moles/Vol] 8 mmol/L 11-05 [facility] Automated lymphocyte count a s percentage of total leukocytesOrdered By: Tiana Wood on 11-20-2024 Lymphocytes/100 WBC Auto (Unsp spec) 19.0 % [facility] BUN/creatinine ratioOrdered By: Tiana Wood on 11-20-2024 Urea nitrogen/Creatinine [Mass ratio] 18.8 mg/mg 04-12 [facility] Basic Metabolic Profile (BMP )on 11-20-2024 BUN/CRE 18.8 RATIO Normal 04-12 [facility] Comment on above: Performed By: #### L 500.2500, L100.0100 #### [facility] [address] [place], [address] Calcium [Mass/Vol] 8.6 mg/dL Normal 7.6-11.0 [facility] Comment on above: Performed By: #### L 500.2500, L100.0100 #### [facility] [address] [place], [address] Chloride [Moles/Vol] 106 mmol/L Normal 98-108 [facility] Comment on above: Performed By: #### L 500.2500, L100.0100 #### [facility] [address] [place], [address] CO2 [Moles/Vol] 24.1 mmol/L Normal 21.0-32.0 [facility] Comment on above: Performed By: #### L 500.2500, L100.0100 #### [facility] [address] [place], [address] Creatinine [Mass/Vol] 0.76 mg/dL Normal 0.70-1.20 [facility] Comment on above: Performed By: #### L 500.2500, L100.0100 #### [facility] [address] [place], [address] ECRCL 50.94 ml/min Normal 50-250 [facility] Comment on above: Performed By: #### L 500.2500, L100.0100 #### [facility] Laboratory [address] [place], [address] GAP 8 Normal 5-15 [facility] Comment on above: Performed By: #### L 500.2500, L100.0100 #### [facility] Laboratory [address] [place], [address] GFR/1.73 sq M.predicted among non-blacks MDRD (S/P/Bld) [Vol rate/Area] 81 mL/min/{1.73_m2} Normal >60 [facility] Comment on above: Result Comment: mL/m in/1.73m2 CKD-EPI Creatinine Equation (2020) Performed By: #### L 500.2500, L100.0100 #### [facility] Laboratory [address] [place], [address] Glucose [Mass/Vol] 104 mg/dL High 70-99 [facility] Comment on above: Performed By: #### L 500.2500, L100.0100 #### [facility] Laboratory [address] [place], [address] Potassium [Moles/Vol] 3.5 mmol/L Normal 3.3-5.1 [facility] Comment on above: Performed By: #### L 500.2500, L100.0100 #### [facility] Laboratory [address] [place], [address] Sodium [Moles/Vol] 138 mmol/L Normal 133-145 [facility] Comment on above: Performed By: #### L 500.2500, L100.0100 #### [facility] Laboratory [address] [place], [address] Urea nitrogen [Mass/Vol] 14 mg/dL Normal 4-19 [facility] Comment on above: Performed By: #### L 500.2500, L100.0100 #### [facility] Laboratory [address], [address] Basophil percentageOrdered B y: Tiana Wood on 11-20-2024 Basophils/100 WBC (Bld) 0.2 % 0-1 [facility] CBC W/Diff, Automatedon 10-24 0-2024 Absolute Lymph 1.92 X10 3/uL Normal 0.83-4.51 [facility] Comment on above: Performed By: #### L 100.0100 #### [facility] Laboratory [address] [place], [address] Absolute Neut 7.4 X10 3/uL Normal 2.0-7.7 [facility] Comment on above: Performed By: #### L 100.0100 #### [facility] Laboratory [address] [place], [address] Basophils/100 WBC (Bld) 0.2 % Normal 0-1 [facility] Comment on above: Performed By: #### L 100.0100 #### [facility] Laboratory [address] [place], [address] Eosinophils/100 WBC (Bld) 0.7 % Normal 0-5 [facility] Comment on above: Performed By: #### L 100.0100 #### [facility] Laboratory [address] [place], [address] Erythrocyte distribution width (RBC) [Ratio] 13.8 % Normal 11.6-14.6 [facility] Comment on above: Performed By: #### L 100.0100 #### [facility] Laboratory [address] [place], [address] Hematocrit (Bld) [Volume fraction] 26.5 % Low 37-47 [facility] Comment on above: Performed By: #### L 100.0100 #### [facility] Laboratory [address] [place], [address] Hemoglobin (Bld) [Mass/Vol] 9.1 g/dL Low 12.0-15.0 [facility] Comment on above: Performed By: #### L 100.0100 #### [facility] Laboratory [address] [place], [address] IG% 0.500 Normal 0.0-0.9 [facility] Comment on above: Result Comment: IG% - Immature Granulocytes (promyelocytes, myelocytes and metamyelocytes) > 1% indicates that a LEFT SHIFT is Present. Performed By: #### L 100.0100 #### [facility] Laboratory [address] [place], [address] Lymphocytes/100 WBC (Bld) 19.0 % Normal 19-41 [facility] Comment on above: Performed By: #### L 100.0100 #### [facility] Laboratory [address] [place], [address] MCH (RBC) [Entitic mass] 30.6 pg Normal 27.0-32.0 [facility] Comment on above: Performed By: #### L 100.0100 #### [facility] Laboratory [address] [place], [address] MCHC (RBC) [Mass/Vol] 34.3 g/dL Normal 32-36 [facility] Comment on above: Performed By: #### L 100.0100 #### [facility] Laboratory [address] [place], [address] MCV (RBC) [Entitic vol] 89.2 fL Normal 81-99 [facility] Comment on above: Performed By: #### L 100.0100 #### [facility] Laboratory [address] [place], [address] Monocytes/100 WBC (Bld) 6.3 % Normal 0-10 [facility] Comment on above: Performed By: #### L 100.0100 #### [facility] Laboratory [address] [place], [address] Neutrophils/100 WBC (Bld) 73.3 % High 47-70 [facility] Comment on above: Performed By: #### L 100.0100 #### [facility] Laboratory [address] [place], [address] Nucleated RBC (Bld) [#/Vol] 0 10*3/uL Normal 0-5 [facility] Comment on above: Performed By: #### L 100.0100 #### [facility] Laboratory [address] [place], [address] Platelet mean volume (Bld) [Entitic vol] 9.9 fL Normal 6.2-12.0 [facility] Comment on above: Performed By: #### L 100.0100 #### [facility] Laboratory [address] [place], [address] Platelets (Bld) [#/Vol] 197 10*3/uL Normal 150-450 [facility] Comment on above: Performed By: #### L 100.0100 #### [facility] Laboratory [address] [place], [address] RBC (Bld) [#/Vol] 2.97 10*6/uL Low 4.2-5.4 [facility] Comment on above: Performed By: #### L 100.0100 #### [facility] Laboratory [address] [place], [address] RDW SD 44.8 fl High 35.1-43.9 [facility] Comment on above: Performed By: #### L 100.0100 #### [facility] Laboratory [address] [place], [address] WBC (Bld) [#/Vol] 10.1 10*3/uL Normal 4.4-11.0 [facility] Comment on above: Performed By: #### L 100.0100 #### [facility] Laboratory [address] [place], [address] Carbon dioxide, total [Moles /volume] in Central venous bloodOrdered By: Tiana Wood on 11-20-2024 CO2 [Moles/Vol] 24.1 mmol/L 21.0-32.0 [facility] Chloride assayOrdered By: Tae Wood on 11-20-2024 Chloride [Moles/Vol] 106 mmol/L 98-108 [facility] Eosinophil percentageOrdered By: Tiana Wood on 11-20-2024 Eosinophils/100 WBC (Bld) 0.7 % 0-5 [facility] Erythrocyte distribution wid th ratioOrdered By: Tiana Wood on 11-20-2024 Erythrocyte distribution width (RBC) [Ratio] 13.8 % 11.6-14.6 [facility] Erythrocyte distribution wid th standard deviationOrdered By: Tiana Wood on 11-20-2024 Erythrocyte distribution width (RBC) [Ratio] 44.8 fl High 35.1-43.9 [facility] Glomerular filtration rate ( GFR) estimation/1.73 sq m using serum, plasma, or whole bOrdered By: Tiana Wood on 11-20-2024 GFR/1.73 sq M.predicted among non-blacks MDRD (S/P/Bld) [Vol rate/Area] 81 mL/min/{1.73_m2} >60 [facility] Comment on above: mL/min/1.73m2 CKD-EP I Creatinine Equation (2020) Hematocrit Auto (Bld) [Volum e fraction]Ordered By: Tiana Wood on 11-20-2024 Hematocrit (Bld) [Volume fraction] 26.5 % Low 37-47 [facility] Hemoglobin measurementOrdere d By: Tiana Wood on 11-20-2024 Hemoglobin (Bld) [Mass/Vol] 9.1 g/dL Low 12.0-15.0 [facility] Immature granulocytes/100 WB C Auto (Bld)Ordered By: Tiana Wood on 11-20-2024 Immature granulocytes/100 WBC (Bld) 0.500 % 0.0-0.9 [facility] Comment on above: IG% - Immature Granu locytes (promyelocytes, myelocytes and metamyelocytes) > 1% indicates that a LEFT SHIFT is Present. MCV (mean corpuscular volume ) determinationOrdered By: Tiana Wood on 11-20-2024 MCV (RBC) [Entitic vol] 89.2 fL 81-99 [facility] Mean corpuscular hemoglobin (MCH) determinationOrdered By: Tiana Wood on 11-20-2024 MCH (RBC) [Entitic mass] 30.6 pg 27.0-32.0 [facility] Mean corpuscular hemoglobin concentration (MCHC) determinationOrdered By: Tiana Wood on 11-20-2024 MCHC (RBC) [Mass/Vol] 34.3 g/dL 32-36 [facility] Mean platelet volume determi nationOrdered By: Tiana Wood on 11-20-2024 Platelet mean volume (Bld) [Entitic vol] 9.9 fL 6.2-12.0 [facility] Monocyte percentageOrdered B y: Tiana Wood on 11-20-2024 Monocytes/100 WBC (Bld) 6.3 % 0-10 [facility] Neutrophil percentageOrdered By: Tiana Wood on 11-20-2024 Neutrophils/100 WBC (Bld) 73.3 % High 47-70 [facility] Nucleated red blood cell per centageOrdered By: Tiana Wood on 11-20-2024 Nucleated RBC/100 WBC (Bld) [Ratio] 0 % 0-5 [facility] Platelet countOrdered By: Tae Wood on 11-20-2024 Platelets (Bld) [#/Vol] 197 10*3/uL 150-450 [facility] Potassium measurement (mass/ volume)Ordered By: Tiana Wood on 11-20-2024 Potassium (Unsp spec) [Mass/Vol] 3.5 mmol/L 3.3-5.1 [facility] RBC Auto (Bld) [#/Vol]Ordere d By: Tiana Wood on 11-20-2024 RBC (Bld) [#/Vol] 2.97 10*6/uL Low 4.2-5.4 [facility] Serum creatinine measurement (mass/volume)Ordered By: Tiana Israel on 11-20-2024 Creatinine [Mass/Vol] 0.76 mg/dL 0.70-1.20 [facility] Serum glucose measurement (m ass/volume)Ordered By: Tianamily Wood on 11-20-2024 Glucose [Mass/Vol] 104 mg/dL High 70-99 [facility] Serum or plasma calcium patricia urement (mass/volume)Ordered By: Tianamily Wood on 11-20-2024 Calcium [Mass/Vol] 8.6 mg/dL 7.6-11.0 [facility] Serum or plasma urea nitroge n measurement (mass/volume)Ordered By: Tianamily Wood on 11-20-2024 Urea nitrogen [Mass/Vol] 14 mg/dL 4-19 [facility] Sodium levelOrdered By: Omero Wood on 11-20-2024 Sodium [Moles/Vol] 138 mmol/L 133-145 [facility] White blood cell (WBC) count Ordered By: Tianamily Wood on 11-20-2024 WBC (Bld) [#/Vol] 10.1 10*3/uL 4.4-11.0 [facility] Basic Metabolic Profile (BMP )on 11-19-2024 BUN/CRE 21.3 RATIO High 10-20 [facility] Comment on above: Performed By: #### L 500.2500, L100.0100 #### [facility] Laboratory [address] [place], [address] Calcium [Mass/Vol] 8.5 mg/dL Normal 7.6-11.0 [facility] Comment on above: Performed By: #### L 500.2500, L100.0100 #### [facility] Laboratory [address] [place], [address] Chloride [Moles/Vol] 107 mmol/L Normal 98-108 [facility] Comment on above: Performed By: #### L 500.2500, L100.0100 #### [facility] Laboratory [address] [place], [address] CO2 [Moles/Vol] 24.2 mmol/L Normal 21.0-32.0 [facility] Comment on above: Performed By: #### L 500.2500, L100.0100 #### [facility] Laboratory [address] [place], [address] Creatinine [Mass/Vol] 0.92 mg/dL Normal 0.70-1.20 [facility] Comment on above: Performed By: #### L 500.2500, L100.0100 #### [facility] Laboratory [address] [place], [address] ECRCL 44.28 ml/min Low 50-250 [facility] Comment on above: Performed By: #### L 500.2500, L100.0100 #### [facility] Laboratory [address] [place], [address] GAP 11 Normal 5-15 [facility] Comment on above: Performed By: #### L 500.2500, L100.0100 #### [facility] Laboratory [address] [place], [address] GFR/1.73 sq M.predicted among non-blacks MDRD (S/P/Bld) [Vol rate/Area] 64 mL/min/{1.73_m2} Normal >60 [facility] Comment on above: Result Comment: mL/m in/1.73m2 CKD-EPI Creatinine Equation (2020) Performed By: #### L 500.2500, L100.0100 #### [facility] Laboratory [address] [place], [address] Glucose [Mass/Vol] 111 mg/dL High 70-99 [facility] Comment on above: Performed By: #### L 500.2500, L100.0100 #### [facility] Laboratory [address] [place], [address] Potassium [Moles/Vol] 3.1 mmol/L Low 3.3-5.1 [facility] Comment on above: Performed By: #### L 500.2500, L100.0100 #### [facility] Laboratory [address] [place], [address] Sodium [Moles/Vol] 142 mmol/L Normal 133-145 [facility] Comment on above: Performed By: #### L 500.2500, L100.0100 #### [facility] Laboratory [address] [place], [address] Urea nitrogen [Mass/Vol] 20 mg/dL High 4-19 [facility] Comment on above: Performed By: #### L 500.2500, L100.0100 #### [facility] Laboratory [address] [place], [address] CBC-Complete Blood Cnt No Di ffon 11-19-2024 Erythrocyte distribution width (RBC) [Ratio] 14.0 % Normal 11.6-14.6 [facility] Comment on above: Performed By: #### L 500.2500, L100.0100 #### [facility] Laboratory [address] [place], [address] Hematocrit (Bld) [Volume fraction] 26.5 % Low 37-47 [facility] Comment on above: Performed By: #### L 500.2500, L100.0100 #### [facility] Laboratory [address] [place], [address] Hemoglobin (Bld) [Mass/Vol] 9.3 g/dL Low 12.0-15.0 [facility] Comment on above: Performed By: #### L 500.2500, L100.0100 #### [facility] Laboratory [address] [place], [address] MCH (RBC) [Entitic mass] 31.3 pg Normal 27.0-32.0 [facility] Comment on above: Performed By: #### L 500.2500, L100.0100 #### [facility] Laboratory [address] [place], [address] MCHC (RBC) [Mass/Vol] 35.1 g/dL Normal 32-36 [facility] Comment on above: Performed By: #### L 500.2500, L100.0100 #### [facility] Laboratory [address] [place], [address] MCV (RBC) [Entitic vol] 89.2 fL Normal 81-99 [facility] Comment on above: Performed By: #### L 500.2500, L100.0100 #### [facility] Laboratory [address] [place], [address] Platelet mean volume (Bld) [Entitic vol] 9.9 fL Normal 6.2-12.0 [facility] Comment on above: Performed By: #### L 500.2500, L100.0100 #### [facility] Laboratory [address] [place], [address] Platelets (Bld) [#/Vol] 174 10*3/uL Normal 150-450 [facility] Comment on above: Performed By: #### L 500.2500, L100.0100 #### [facility] Laboratory [address] [place], [address] RBC (Bld) [#/Vol] 2.97 10*6/uL Low 4.2-5.4 [facility] Comment on above: Performed By: #### L 500.2500, L100.0100 #### [facility] Laboratory [address] [place], [address] RDW SD 45.4 fl High 35.1-43.9 [facility] Comment on above: Performed By: #### L 500.2500, L100.0100 #### [facility] Laboratory [address] [place], [address] WBC (Bld) [#/Vol] 9.1 10*3/uL Normal 4.4-11.0 [facility] Comment on above: Performed By: #### L 500.2500, L100.0100 #### [facility] Laboratory [address] [place], [address] Hemoglobinon 11-19-2024 Hemoglobin (Bld) [Mass/Vol] 8.9 g/dL Low 12.0-15.0 [facility] Comment on above: Performed By: #### L 500.2500, L100.0100 #### [facility] Laboratory [address] [place], [address] BRCon 11-18-2024 RC Normal [facility] Comment on above: Result Comment: [id number] AP RC TRANSFUSED 11/18/242006 Performed By: #### B RC, BTS ####[facility] [id number] [place], [address] Basic Metabolic Profile (BMP )on 11-18-2024 BUN/CRE 21.7 RATIO High 10-20 [facility] Comment on above: Performed By: #### L 501.5200, L100.0100, L500.2500, L501.2300 #### [facility] Laboratory [address] [place], [address] Calcium [Mass/Vol] 8.3 mg/dL Normal 7.6-11.0 [facility] Comment on above: Performed By: #### L 501.5200, L100.0100, L500.2500, L501.2300 #### [facility] Laboratory [address] [place], [address] Chloride [Moles/Vol] 102 mmol/L Normal 98-108 [facility] Comment on above: Performed By: #### L 501.5200, L100.0100, L500.2500, L501.2300 #### [facility] Laboratory [address] [place], [address] CO2 [Moles/Vol] 23.8 mmol/L Normal 21.0-32.0 [facility] Comment on above: Performed By: #### L 501.5200, L100.0100, L500.2500, L501.2300 #### [facility] Laboratory [address] [place], [address] Creatinine [Mass/Vol] 0.92 mg/dL Normal 0.70-1.20 [facility] Comment on above: Performed By: #### L 501.5200, L100.0100, L500.2500, L501.2300 #### [facility] Laboratory [address] [place], [address] ECRCL 44.03 ml/min Low 50-250 [facility] Comment on above: Performed By: #### L 501.5200, L100.0100, L500.2500, L501.2300 #### [facility] Laboratory [address] [place], [address] GAP 11 Normal 5-15 [facility] Comment on above: Performed By: #### L 501.5200, L100.0100, L500.2500, L501.2300 #### [facility] Laboratory [address] [place], [address] GFR/1.73 sq M.predicted among non-blacks MDRD (S/P/Bld) [Vol rate/Area] 64 mL/min/{1.73_m2} Normal >60 [facility] Comment on above: Result Comment: mL/m in/1.73m2 CKD-EPI Creatinine Equation (2020) Performed By: #### L 501.5200, L100.0100, L500.2500, L501.2300 #### [facility] Laboratory [address] [place], [address] Glucose [Mass/Vol] 125 mg/dL High 70-99 [facility] Comment on above: Performed By: #### L 501.5200, L100.0100, L500.2500, L501.2300 #### [facility] Laboratory [address] [place], [address] Potassium [Moles/Vol] 3.1 mmol/L Low 3.3-5.1 [facility] Comment on above: Performed By: #### L 501.5200, L100.0100, L500.2500, L501.2300 #### [facility] Laboratory [address] [place], [address] Sodium [Moles/Vol] 137 mmol/L Normal 133-145 [facility] Comment on above: Performed By: #### L 501.5200, L100.0100, L500.2500, L501.2300 #### [facility] Laboratory [address] [place], [address] Urea nitrogen [Mass/Vol] 20 mg/dL High 4-19 [facility] Comment on above: Performed By: #### L 501.5200, L100.0100, L500.2500, L501.2300 #### [facility] Laboratory [address] [place], [address] CBC W/Diff, Automatedon 05-2 Absolute Lymph 1.24 X10 3/uL Normal 0.83-4.51 [facility] Comment on above: Performed By: #### L 501.5200, L100.0100, L500.2500, L501.2300 #### [facility] Laboratory [address] [place], [address] Absolute Neut 9.5 X10 3/uL High 2.0-7.7 [facility] Comment on above: Performed By: #### L 501.5200, L100.0100, L500.2500, L501.2300 #### [facility] Laboratory [address] [place], [address] Basophils/100 WBC (Bld) 0.2 % Normal 0-1 [facility] Comment on above: Performed By: #### L 501.5200, L100.0100, L500.2500, L501.2300 #### [facility] Laboratory [address] [place], [address] Eosinophils/100 WBC (Bld) 0.0 % Normal 0-5 [facility] Comment on above: Performed By: #### L 501.5200, L100.0100, L500.2500, L501.2300 #### [facility] Laboratory [address] [place], [address] Erythrocyte distribution width (RBC) [Ratio] 12.9 % Normal 11.6-14.6 [facility] Comment on above: Performed By: #### L 501.5200, L100.0100, L500.2500, L501.2300 #### [facility] Laboratory [address] [place], [address] Hematocrit (Bld) [Volume fraction] 22.7 % Low 37-47 [facility] Comment on above: Performed By: #### L 501.5200, L100.0100, L500.2500, L501.2300 #### [facility] Laboratory [address] [place], [address] Hemoglobin (Bld) [Mass/Vol] 8.2 g/dL Low 12.0-15.0 [facility] Comment on above: Performed By: #### L 501.5200, L100.0100, L500.2500, L501.2300 #### [facility] Laboratory [address] [place], [address] IG% 0.800 Normal 0.0-0.9 [facility] Comment on above: Result Comment: IG% - Immature Granulocytes (promyelocytes, myelocytes and metamyelocytes) > 1% indicates that a LEFT SHIFT is Present. Performed By: #### L 501.5200, L100.0100, L500.2500, L501.2300 #### [facility] Laboratory [address] [place], [address] Lymphocytes/100 WBC (Bld) 10.8 % Low 19-41 [facility] Comment on above: Performed By: #### L 501.5200, L100.0100, L500.2500, L501.2300 #### [facility] Laboratory [address] [place], [address] MCH (RBC) [Entitic mass] 31.7 pg Normal 27.0-32.0 [facility] Comment on above: Performed By: #### L 501.5200, L100.0100, L500.2500, L501.2300 #### [facility] Laboratory [address] [place], [address] MCHC (RBC) [Mass/Vol] 36.1 g/dL High 32-36 [facility] Comment on above: Performed By: #### L 501.5200, L100.0100, L500.2500, L501.2300 #### [facility] Laboratory [address] [place], [address] MCV (RBC) [Entitic vol] 87.6 fL Normal 81-99 [facility] Comment on above: Performed By: #### L 501.5200, L100.0100, L500.2500, L501.2300 #### [facility] Laboratory [address] [place], [address] Monocytes/100 WBC (Bld) 6.0 % Normal 0-10 [facility] Comment on above: Performed By: #### L 501.5200, L100.0100, L500.2500, L501.2300 #### [facility] Laboratory [address] [place], [address] Neutrophils/100 WBC (Bld) 82.2 % High 47-70 [facility] Comment on above: Performed By: #### L 501.5200, L100.0100, L500.2500, L501.2300 #### [facility] Laboratory [address] [place], [address] Nucleated RBC (Bld) [#/Vol] 0 10*3/uL Normal 0-5 [facility] Comment on above: Performed By: #### L 501.5200, L100.0100, L500.2500, L501.2300 #### [facility] Laboratory [address] [place], [address] Platelet mean volume (Bld) [Entitic vol] 9.6 fL Normal 6.2-12.0 [facility] Comment on above: Performed By: #### L 501.5200, L100.0100, L500.2500, L501.2300 #### [facility] Laboratory [address] [place], [address] Platelets (Bld) [#/Vol] 214 10*3/uL Normal 150-450 [facility] Comment on above: Performed By: #### L 501.5200, L100.0100, L500.2500, L501.2300 #### [facility] Laboratory [address] [place], [address] RBC (Bld) [#/Vol] 2.59 10*6/uL Low 4.2-5.4 [facility] Comment on above: Performed By: #### L 501.5200, L100.0100, L500.2500, L501.2300 #### [facility] Laboratory [address] [place], [address] RDW SD 41.2 fl Normal 35.1-43.9 [facility] Comment on above: Performed By: #### L 501.5200, L100.0100, L500.2500, L501.2300 #### [facility] Laboratory [address] [place], [address] WBC (Bld) [#/Vol] 11.5 10*3/uL High 4.4-11.0 [facility] Comment on above: Performed By: #### L 501.5200, L100.0100, L500.2500, L501.2300 #### [facility] Laboratory [address] [place], [address] Hemoglobinon 11-18-2024 Hemoglobin (Bld) [Mass/Vol] 7.8 g/dL Low 12.0-15.0 [facility] Comment on above: Performed By: #### L 500.2500, L100.0100 #### [facility] Laboratory [address] [place], [address] Magnesiumon 11-18-2024 Magnesium [Mass/Vol] 1.7 mg/dL Normal 1.5-2.2 [facility] Comment on above: Performed By: #### L 501.5200, L100.0100, L500.2500, L501.2300 #### [facility] Laboratory [address] [place], [place], [id number] [phone] Magnesium measurement (mass/ volume)Ordered By: Crow Dc on 11-18-2024 Magnesium (Unsp spec) [Mass/Vol] 1.7 mg/dL 1.5-2.2 [facility] Phosphoruson 11-18-2024 Phosphate [Mass/Vol] 3.7 mg/dL Normal 2.7-4.5 [facility] Comment on above: Performed By: #### L 501.5200, L100.0100, L500.2500, L501.2300 #### [facility] Laboratory [address] [place], [address] Type AND Screenon 11-18-2024 Ab SCREEN GEL Negative Normal [facility] Comment on above: Order Comment: CMV N EG? NNumber of units to transfuse: 1Reason for Ordering Blood: AcuteAre the blood/blood products to be transfused? YIs the patient having/had surgery? YWhen Dennis Performed By: #### B RAMANDEEP LEDESMAS ####[facility] [address] [place], [address] ACT Activated Clotting Timeo n 11-17-2024 ACTk CLOT TIME 222 sec High 74-137 [facility] Comment on above: Performed By: #### L 9100.0100 ####[facility] [address] [place], [address] ACTk CLOT TIME 320 sec High 74-137 [facility] Comment on above: Performed By: #### L 9100.0100 ####[facility] [address] [place], [address] ACTk CLOT TIME 250 sec High 74-137 [facility] Comment on above: Performed By: #### L 500.2500, L100.0100 #### [facility] Laboratory [address] [place], [address] ACTk CLOT TIME 268 sec High 74-137 [facility] Comment on above: Performed By: #### L 500.2500, L100.0100 #### [facility] Laboratory [address] [place], [address] ACTk CLOT TIME 239 sec High 74-137 [facility] Comment on above: Performed By: #### L 500.2500, L100.0100 #### [facility] Laboratory [address] [place], [address] ACTk CLOT TIME 251 sec High 74-137 [facility] Comment on above: Performed By: #### L 500.2500, L100.0100 #### [facility] Laboratory [address] [place], [address] Decalcification bone/plaqueo n 11-17-2024 Decalcification bone/plaque -------- Patient Age/Sex Location Account Attending Physician -------- NELLI RIVERS 79/F ICU [id number] Dr. Crow Dc MD -------- Specimen: [id number] Received: 11/17/24 Status: SHIVA Hill Num: [id number] Spec Type: PLAQUE Subm Dr: Dr. Crow Dc MD HEADER OPERATION: Right femoral endarterectomy, fem-fem bypass PRE-OP DIAGNOSIS: Atherosclerosis of [place] arteries of extremities with intermittent claudication, left leg TISSUE SUBMITTED: A- Right femoral plaque -------- MICROSCOPIC DIAGNOSIS A. Right femoral artery, plaque, endarterectomy: Calcified atheromatous plaque. GROSS DESCRIPTION A. Received in formalin in a container labeled with the patient's name, date of , and right femoral plaque are 2 red-orozco, calcified fragments of tissue measuring 0.9 x 0.6 x 0.3 cm and 1.3 x 0.9 x 0.5 cm. Sectioning reveals firm and gritty surfaces. The majority of the specimen is submitted in A1 following decalcification. [facility] 11-17-2024 CPT:82584,63145 -------- Patient Age/Sex Location Account Attending Physician -------- NELLI RIVERS 79/F ICU [id number] Dr. Crow Dc MD -------- Signed (signature on file) Dr. Nida Walter MD 11/26/24 1157 -------- Normal [facility] Comment on above: Performed By: #### P DEC ####[facility] [address] [place], [address] Fluoroscopy 1 Hr or Lesson 0 11-17-2024 Fluoroscopy 1 Hr or Less [facility] Imaging Services [address] [place] [address] Fluoroscopy 1 Hr or Less MR#: [id number] Acct: [id number] Name: NELLI RIVERS Rep #: [id number] : 1945 F 79 From: Vitaliy hull MD PCP: Dr. Jolanta Grant MD Status: ADM IN Study: Fluoroscopy 1 Hr or Less Date of Exam: 5 Exam# [id number] Ordering Dr: Crow Dc MD PROCEDURE: FLUOROSCOPY 1 HR OR LESS 11/17/2024 REASON FOR EXAM: Right iliac stenting. TECHNIQUE: Standing AP view(s) of the thoracic and lumbar spine.. 12 minutes and 29 seconds of fluoroscopy. 171.28 mGy. COMPARISON: None FINDINGS: Intraoperative fluoroscopic services provided for stenting. RAD/Fluoroscopy 1 Hr or Less IMPRESSION: Intraoperative fluoroscopic services provided for right common iliac stenting. Reading Location: [facility] CC: Dr. Crow Dc MD; Dr. Jolanta Grant MD Job Forwarder: Signed Normal [facility] MR/POSTOP.ANEon 11-17-2024 MR/POSTOP.[facility] Medical Records Department [address] [place] [address] Anesthesia Postop Eval I 11/17/24 1400 MR#: [id number] Acct: [id number] Name: NELLI RIVERS Rep #: [id number] : 1945 79 From: Lul Hood CRNA PCP: Dr. Jolanta Grant MD Status:ADM IN Y Race: C Location: ICU [id number] Anesthesia: Postop Eval I Current Vital Signs Temperature: 97.2 F Pulse Rate: 67 Blood Pressure: 133/54 Respiratory Rate: 20 Pulse Ox: 99 Oxygen Delivery Method: Room Air Assessment Airway patent: Yes Spontaneous unlabored respirations: Yes Mental status: Awake, Calm and Confused nausea: No Vomiting: No Anesthesia Complication: No Fluid Hydration Crystalloid volume administer (ml): 2,500 Total IV fluid infused: 2,500 Progress Note Anesthesia document: Postop Eval 1 completed: Yes 11/17/24 1401 Date Lul Hood WOOD TILE INSTALLER Cosigner Signature: Date CC: Signed Normal [facility] MR/[id number] 11-17-2024 /POST[address] Medical Records Department [address] [place] [address] Anesthesia Postop Eval II 11/17/24 1406 MR#: [id number] Acct: [id number] Name: NELLI RIVERS Rep #: [id number] : 1945 79 From: Haven Mcneil WOOD TILE INSTALLER PCP: Dr. Jolanta Grant MD Status:ADM IN Y Race: C Location: ICU [id number] Anesthesia Postop Eval I Sum Postop Eval Completion status Anesthesia document: Postop Eval 1 completed: Yes Anesthesia Postop Eval I Summary Anesthesia Postop Eval I Summary: Anesthesia Postop Eval I: Assessment Summary Airway patent Yes 11/17/24 14:01 WOOD TILE [email or web address] Spontaneous unlabored Yes 11/17/24 14:01 WOOD TILE [email or web address] respirations Mental status Awake,Calm, 11/17/24 14:01 WOOD TILE [email or web address] Confused nausea No 11/17/24 14:01 WOOD TILE [email or web address] Vomiting No 11/17/24 14:01 WOOD TILE [email or web address] Anesthesia Postop Eval I: Fluid Summary Crystalloid volume administer 2,500 11/17/24 14:01 WOOD TILE [email or web address] (ml) Colloids volume administered ( ml) Blood Product volume administered (ml) Total IV fluid infused 2,500 11/17/24 14:01 WOOD TILE [email or web address] Anesthesia Postop Eval I: Summary Notes Anesthesia Complication No 11/17/24 14:01 WOOD TILE [email or web address] Anesthesia Complication Comment: Post-operative progress note Anesthesia: Postop Eval II Evaluation Mental status: Awake and Calm Pain Level: 0 nausea: No Vomiting: No Complications Anesthesia Complication: No 11/17/24 1407 Date Haven Mcneil WOOD TILE INSTALLER Cosigner Signature: Date CC: Signed Normal [facility] Operative Reporton Operative Report [facility] Medical Records Department [address] [place] [address] Operative Report 11/17/24 1412 MR#: [id number] Acct: [id number] Name: NELLI RIVERS Rep #: [id number] : 1945 79 From: Crow Dc MD PCP: Dr. Jolanta Grant MD Status:ADM IN Location: ICU [place] [address] Operative Report (Standard) Operative Information Date of Procedure: 11/17/24 Pre-Operative Diagnosis: atherosclerosis northern [place] arteries with rest pain, left lower extremity Post-Operative Diagnosis: same Surgery/Procedure Performed: Right common and external iliac artery intravascular lithotripsy angioplasty and stent Right femoral endarterectomy Right to left femoral-femoral bypass with cadaver Bilateral sartorius flaps towel inspector: Yes Manager Field Investigations: Alina Pena Tasks completed by butcher assistant: Opening, Closing, Opening closing, Hemostasis: Tie and Retracting Type of Anesthesia: General RN Documented Start/Stop Times: Operation Date: 11/17/24 07:30 Case Time Into Pre-Op 11/17/24 05:48 Out of Pre-Op 11/17/24 07:34 Anesthesia Start 11/17/24 07:38 Into Room 11/17/24 07:38 Procedure Start 11/17/24 08:23 Procedure End 11/17/24 13:37 Anesthesia End 11/17/24 13:48 Out of Room 11/17/24 13:48 Procedure Start Time: 08:30 Procedure Stop Time: 13:30 Select all DRAINS/GRAFTS/IMPLANT S that apply: Graft Graft details: Cadaver femoral-popliteal artery and Implanted device Implanted device details: Right common iliac stent-[employer] epic stent 10 x 4; right external iliac stent-[employer] Innova 8 x 100 Estimated Blood Loss: 157 Specimen collected: Yes Description of specimen(s) removed: Right femoral plaque Description of surgery: HPI: Patient is a 79-year-old female with atherosclerosis of the northern [place] vessels with left lower extremity rest pain and severe bilateral multilevel disease. 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 She also has right common femoral artery significant calcified atherosclerosis so an endarterectomy is required therefore a modifier 22 is applied given the additional 1 hour of operative time. She is taken now for right iliac angioplasty and stenting with intravascular lithotripsy and femoral-femoral bypass. Description of procedure: Upon obtaining informed consent and verification correct patient procedure and site the patient was taken to the operating where she was placed under general anesthesia. She was then positioned prepped and draped in usual sterile fashion time was performed. Oblique incision was made over the right common femoral artery and Bovie electrocautery used to dissect down through subcutaneous tissue and subcutaneous retractor put in position. Further dissection was then carried down to the femoral sheath which is then incised vertically exposing the common femoral artery. Sharp section was used to dissect proximally up to the inguinal ligament which was then freed along its inferior border and retracted cephalad exposing the distal external iliac artery. We then dissected more proximally until we encountered vessel that was soft and clamp oval at which point the vessel was dissected free circumferentially and a right angle used to place a vessel loop. We then dissected distally down onto the superficial femoral artery which had significant calcified plaque in its proximal segment so we dissected several centimeters under the vessel till we found a soft and clean mobile segment. The vessel was then dissected free circumferentially and a right angle was placed vessel loop. Finally sharp dissection was dissect down on the profundofemoral artery down the secondary branches and right and used to place Vesseloops around each of these individually. Next oblique incision was made over the left common femoral artery and Bovie used to dissect down through the subcutaneous tissue to the level of the femoral sheath. The femoral sheath was then incised vertically exposing the common femoral artery. Sharp dissection was used to dissect the vessel free proximally up to the inguinal ligament and a right angle was used to place vessel loop at this location. We then dissected down onto the superficial femoral artery and a right angle to place a vessel loop at a soft portion of the vessel and finally dissection carried down onto the secondary branch of the profunda and each of these secured with a vessel loop individually. A Moriah tunneler was then used to tunnel subcutaneously between the 2 femoral incisions and the patient was then heparinized allowed to circulate for 3 minutes. Subsequent heparin dosing was then based on ACT results. The right femoral vessels were then occluded with Vesseloops and longitudinal arteriotomy created with 11 blade on the c (more content not included)... Normal [facility] Emergency Department Summary on 11-12-2024 Emergency Department Summary [facility] Medical Records Department [address] [place] [address] Emergency Department Summary 11/12/24 MR#: [id number] Acct: [id number] Name: NELLI RIVERS Rep #: [id number] : 1945 79 From: Darryl Quinones DO PCP: Dr. Jolanta Grant MD Status:DEP ER Location: ED HPI History of Present Illness Chief Complaint: Lower Extremity Injury Informant: patient Narrative Narrative: 79-year-old female. History of peripheral artery disease senting to the emergency room with left leg pain. Patient notes worsening pain of the left leg especially last night today. She states that she is scheduled for surgery with Dr. Dc in 6 days. She states that she called them today and was advised to come to emergency if she could not tolerate the pain. She notes that she is on Plavix and aspirin. She notes no change in the color in the leg. She denies any open wounds on the leg. 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) Nicotine dependence Essential (primary) hypertension Ischemic cardiomyopathy Chronic systolic congestive heart failure Atrioventricular block Old myocardial infarction Atherosclerosis of coronary artery 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 Tobacco abuse Psoriasis Hypercholesteremia Syncope and collapse Hyperlipemia Hypokalemia History of syncope History of sinus bradycardia Home Medications ???Medication ???Instructions ???Recorded ???Last Taken ???Type aspirin 81 mg chewable tablet 81 mg PO DAILY@0800 blood thinner 09/27/16 06/27/20 History nitroglycerin 0.4 mg sublingual 0.4 mg sublingual Q5-15M PRN chest 10/16/22 Unknown Rx tablet pain #25 tabs potassium chloride 10 mEq 20 meq (2 x 10 mEq) PO DAILY 10/20 Unknown Rx capsule,extended release supplement #180 caps vitamin D3 125 mcg (5,000 1 cap PO DAILY supplement 12/06/23 Unknown History unit)-vitamin K2 100 mcg capsule carvedilol 12.5 mg tablet (Coreg) 12.5 mg PO BID bp #180 tabs 03/16 Unknown Rx lisinopril 20 mg tablet 20 mg PO BID bp #180 tabs 03/16/24 Unknown Rx clopidogrel 75 mg tablet 75 mg PO DAILY blood thinner #90 0 10/27/24 Unknown Rx tabs atorvastatin 80 mg tablet 80 mg PO .qd cholesterol 11/02/24 Unknown History calcium carbonate 500 1 - 2 tab PO .as directed PRN 10/22 08/18 Unknown History mg-simethicone 20 mg chewable reflux tablet famotidine 20 mg tablet 20 mg PO .qd reflux 11/02/24 Unkno wn History Held on 11/02/24. Instructions: pt not taking - using tums furosemide 40 mg tablet 40 mg PO .q day dieretic 11/02/24 Unknown History magnesium sulfate ea topical .2-3 times a day cramps 11/02/24 Unknown History Allergy/AdvReac Type Severity Reaction Status Date / Time No Known Allergies Allergy Verified 11/12/24 15:12 Family History Father CAD (coronary artery disease) Myocardial infarction Brother CAD (coronary artery disease) Myocardial infarction Mother Cancer Surgical History History of electrophysiologic study (03/07/12) Biventricular ICD (implantable cardioverter-defibril lator) in place (08/04/20) History of coronary artery stent placement (03/06/12) H/O coronary artery bypass surgery (04/28/97) Saphenous vein graft to CFX saphenous vein graft to RCA H/O tubal ligation History of left heart catheterization (06/27/20) Social History household members: spouse and family housing: house Smoking Status: Heavy Smoker (>10/day) second hand exposure: Yes alcohol intake: current alcohol intake frequency: holidays/special occasions only substance use type: does not use caffeine: Yes Type: carbonated beverages Number of servings: 4 what type of physical activity do you participate in: none seatbelt use: always do you feel safe at home: Yes ROS ROS ED Constitutional Constitutional ED: Denies chills or weight loss Eyes Eyes: Denies change in vision or diplopia ENT ENT ED: Denies ear pain, rhinorrhea or sore throat Cardiovascular Cardiovascular: Denies chest pain, orthopnea, palpitations or racing heartbeat Respiratory/Chest Respiratory/Chest: Denies cough, dyspnea or orthopnea Gastrointestinal Gastrointestinal: Denies abdominal pain, diarrhea, nausea or vomiting Genitourinary Genitourinary ED: Denies dysuria, hematuria or urinary frequency Musculoskel (more content not included)... Normal [facility] Arterial study reportOrdered By: Crow Dc on 11-05-2024 Noninvasive arteriosclerosis study report [facility] Cardiovascular Services [address] [facility] [place] [address] Lower Ext Art Exam w/o Exercis 11/04/24 0829 MR#: [id number] Acct: [id number] Name: NELLI RIVERS Rep #:[id number] : 1945 78 From: Crow Jurado Attending Dr: Dr. Crow Dc MD S tatus: REG CLI Ordering Dr: Crow Dc MD Date: Location: CVS Sex: F C Admitted: Reason For Study Reason For Study: PVD Procedure A bilateral lower extremity continuous wave Doppler with analog waveform analysis,segmental pressures,and ankle brachial indexes without exercise. Left Segmental Pressures Left brachial= 113mmHg. Left high thigh = 53mmHg. Left low thigh = 70mmHg. Left calf = 52mmHg. Left posterior tibial artery = 48mmHg. Left dorsalis pedis artery = 47mmHg. The left dorsalis pedis waveforms are monophasic. The left posterior tibial artery waveforms are monophasic. Right Segmental Pressures Right brachial= 115mmHg. Right high thigh = 83mmHg. Right low thigh = 65mmHg. Right calf = 86mmHg. Right posterior tibial artery = 74mmHg. Right dorsalis pedis artery = 60mmHg. Right digit = 54 mmHg. The right dorsalis pedis waveforms are biphasic. The right posterior tibial artery waveforms are biphasic. Indices The right ankle brachial index by the dorsalis pedis is 0.52. The right ankle brachial index by the posterior tibial artery is 0.64. The right digital-brachial index is 0.47. The left ankle brachial index by the dorsalis pedis is 0.41. The left ankle brachial index by the posterior tibial artery is 0.42. VL/Lower Ext Art Exam w/o Exercis Interpretation Summary Right MARY BETH 0.64, moderate arterial insufficiency. Doppler/PVR waveforms and segmental pressures reveal aorto-iliac disease. Left MARY BETH 0.42, severe arterial insufficiency. Doppler/PVR waveforms and segmental pressures reveal aorto-iliac disease. Ordering Physician: Crow Dc Referring Physician: Hoang Grant M.D. Performed By: ARIK KESSLER [facility] 11/05/24 0747 Date _ Crow Dc MD CC: Dr. Crow Dc MD; Dr. Jolanta Grant MD ~ Date Dictated: 11/04/24828 Date Transcribed: 11/05/24746 Job Forwarder: Signed [facility] Work Phone: [phone] Electrocardiogram reportOrde red By: Akin Carbajal on 11-05-2024 EKG study [facility] Cardiovascular Services [address] [place] [address] 12 Lead EKG 11/04/2437 MR#: [id number] Acct: [id number] Name: NELLI RIVERS Rep #:[id number] : 1945 78 From: Akin poe MD Attending Dr: Dr. Crow Dc MD S tatus: PRE IN Ordering Dr: Tobin Roth MD Date: 11/04/24 Location: [facility] Sex: F C Admitted: Test Reason : PREOP Blood Pressure : */* mmHG Vent. Rate : 60 BPM Atrial Rate : 60 BPM P-R Int : 94 ms QRS Dur : 150 ms QT Int : 504 ms P-R-T Axes : 95 65 103 degrees QTcB Int : 504 ms AV sequential or dual chamber electronic pacemaker Confirmed by Akin Carbajal ([id number]), material expeditor LURDES DOVER ([id number]) on 11/05/2024 9:37:15 AM Referred By: Crow Dc Confirmed By: Akin Carbajal 11/05/2437 Date _ Akin Carbajal MD CC: Dr. Tobin Roht MD; Dr. Crow Dc MD; Dr. Jolanta Grant MD ~ Signed [facility] Work Phone: [phone] Lead EKGon 11-04-2024 12 Lead EKG [facility] Cardiovascular Services [address] [place] [address] 12 Lead EKG 11/04/24 0837 MR#: [id number] Acct: [id number] Name: NELLI RIVERS Rep #: [id number] : 1945 78 From: Akin Carbajal MD Attending Dr: Dr. Crow Dc MD Status: PRE I N Ordering Dr: Tobin Roth MD Date: 11/04/24 Location: [facility] Sex: F C Admitted: Test Reason : PREOP Blood Pressure : */* mmHG Vent. Rate : 60 BPM Atrial Rate : 60 BPM P-R Int : 94 ms QRS Dur : 150 ms QT Int : 504 ms P-R-T Axes : 95 65 103 degrees QTcB Int : 504 ms AV sequential or dual chamber electronic pacemaker Confirmed by Akin Carbajal ([id number]), material expeditor LURDES DOVER ([id number]) on 11/05/2024 9:37:15 AM Referred By: Crow Dc Confirmed By: Akin Carbajal 11/05/24 0937 Date Akin Carbajal MD CC: Dr. Tobin Roth MD; Dr. Crow Dc MD; Dr. Jolanta Grant MD Signed [facility] 11-04-2024 [facility] Telephone ([employer]) NELLI RIVERS ([id number]) 1945 F Date Time Provider Department 11/04/24 [facility] During your visit today, we recorded the following information about you: Carmina Shetty LPN 11/04/2024 4:33 PM Signed Patient is overdue for wellness exam Please call and schedule Carmina Shetty LPN November 04, 2024 4:33 PM Allergies As of Date: 11/04/2024 (No Known Allergies) Date Reviewed: 09/25/2016 Reviewed by: Nataly Herron Ma - Fully Assessed Reason for Visit: Appointment [[id number]] Prescriptions as of 11/04/2024 - fluticasone (FLOVENT) 220 mcg/actuation inhaler Inhale 1 Puff as instructed twice daily. - buPROPion SR (WELLBUTRIN SR) 100 mg 12 hr tablet Take 1 tablet by mouth twice daily. For smoking cessation. - albuterol HFA (VENTOLIN HFA) 90 mcg/actuation inhaler Inhale 2 Puffs as instructed every 4 hours as needed for Wheezing/Shortness of Breath. - benzonatate (TESSALON PERLE) 100 mg capsule Take 1 capsule by mouth three times daily as needed. - guaiFENesin (MUCINEX) 600 mg 12 hr tablet Take 2 tablets by mouth twice daily. - aspirin, enteric coated (ECOTRIN LOW STRENGTH) 81 mg EC tablet Take 81 mg by mouth once daily. - lisinopril (ZESTRIL, PRINIVIL) 20 mg tablet Take 20 mg by mouth twice daily. - atorvastatin (LIPITOR) 80 mg tablet Take 80 mg by mouth once daily. - clopidogrel (PLAVIX) 75 mg tablet Take 75 mg by mouth once daily. - carvedilol (COREG) 25 mg tablet Take 25 mg by mouth twice daily with meals. - furosemide (LASIX) 40 mg tablet Take 40 mg by mouth twice daily. - albuterol HFA (PROAIR HFA) 90 mcg/actuation inhaler Inhale 2 Puffs as instructed every 4 hours as needed. - Benzonatate (TESSALON) 200 mg capsule Take 200 mg by mouth three times daily as needed for Cough. Problem List As Of Date: 11/04/2024 (None) Encounter Status:Closed by DAYANARA SHETTY LAUREN on 11/04/24 [facility] Lower Ext Art Exam w/o Exerc mily 11-04-2024 Lower Ext Art Exam w/o Exercis [facility] Cardiovascular Services [address] [place] [address] Lower Ext Art Exam w/o Exercis 11/04/24828 MR#: [id number] Acct: [id number] Name: NELLI RIVERS Rep #: [id number] : 1945 78 From: Crow Dc MD Attending Dr: Dr. Crow Dc MD Status: MAAME ALAMO Ordering Dr: Crow Dc MD Date: 11/04/24 Location: [facility] Sex: F C Admitted: Reason For Study Reason For Study: PVD Procedure A bilateral lower extremity continuous wave Doppler with analog waveform analysis,segmental pressures,and ankle brachial indexes without exercise. Left Segmental Pressures Left brachial= 113mmHg. Left high thigh = 53mmHg. Left low thigh = 70mmHg. Left calf = 52mmHg. Left posterior tibial artery = 48mmHg. Left dorsalis pedis artery = 47mmHg. The left dorsalis pedis waveforms are monophasic. The left posterior tibial artery waveforms are monophasic. Right Segmental Pressures Right brachial= 115mmHg. Right high thigh = 83mmHg. Right low thigh = 65mmHg. Right calf = 86mmHg. Right posterior tibial artery = 74mmHg. Right dorsalis pedis artery = 60mmHg. Right digit = 54 mmHg. The right dorsalis pedis waveforms are biphasic. The right posterior tibial artery waveforms are biphasic. Indices The right ankle brachial index by the dorsalis pedis is 0.52. The right ankle brachial index by the posterior tibial artery is 0.64. The right digital-brachial index is 0.47. The left ankle brachial index by the dorsalis pedis is 0.41. The left ankle brachial index by the posterior tibial artery is 0.42. VL/Lower Ext Art Exam w/o Exercis Interpretation Summary Right MARY BETH 0.64, moderate arterial insufficiency. Doppler/PVR waveforms and segmental pressures reveal aorto-iliac disease. Left MARY BETH 0.42, severe arterial insufficiency. Doppler/PVR waveforms and segmental pressures reveal aorto-iliac disease. Ordering Physician: Crow Dc Referring Physician: Hoang Grant M.D. Performed By: ARIK KESSLER [facility] 11/05/24 0747 Date Crow Dc MD CC: Dr. Crow Dc MD; Dr. Jolanta Grant MD Date Dictated: 11/04/24828 Date Transcribed: 11/05/2447 Job Forwarder: Signed [facility] MR/PATOpal 11-04-2024 MR/PAT.[facility] Medical Records Department [address] [place] [address] PAT - Anesthesia 11/04/24 1211 MR#: [id number] Acct: [id number] Name: NELLI RIVERS Rep #: [id number] : 1945 78 From: Gaetano Granados MD PCP: Dr. 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 When Was Last Pacemaker Check QUESTION #4 FULL TEXT: You/Your Family Experience fever (hyperthermia) with Anesthesia Last Oral Intake Last Oral intake: Last Oral Intake NPO since Meds taken in AM with sips of water? 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 Female Yes 11/02/24 14:00 HX of Motion Sickness No 11/02/24 14:00 HX of N/V After Surgery No 11/02/24 14:00 Non-Smoker No 11/02/24 14:00 Duration of Surgery greater Yes 11/02/24 14:00 than 60 minutes Number of Risk Factors 2 11/02/24 14:00 PONV Score Moderate Risk 11/02/24 14:00 Height Weight Height Weight: Anesthesia: Height Weight Height 5 ft 2 in 10/18/24 11:30 Respiratory Assessment Respiratory Assessment - 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 Has anyone observed you stop No 11/02/24 14:00 breathing during sleep? STOP Results Negative 11/02/24 14:00 QUESTION #5 FULL TEXT : Do you snore loudly (louder than talking or can be heard through closed doors)? 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 Specify any problems Hx of Preganancy in last 3 No 11/02/24 14:00 Months Nurse Filling Out Transfusion PaddyZOBRYON 11/02/24 14:00 Questions: Date: 11/02/24 11/02/24 14:00 Time: 14:03 11/02/24 14:00 Patient unable to answer at this time (ie. 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 Normal [facility] MR/BMS.Ying 10-22-2024 MR/BMS.S [facility] Vascular Surgery [address] [place] [address] OFFICE VISIT Date of Service: 10/22/24 MR#: [id number] Acct: [id number] Name: NELLI RIVERS Rep #: [id number] : 1945 Provider: Dr. Crow Dc MD Age/Sex: 78/F Location: [facility] Status: Signed Intake Vital Signs 10/18/24 11:30 10/22/24 14:05 Height 5 ft 2 in Weight: 139 lb BP 96/55 L Blood Pressure Location Lt brachial Position Sitting Respiration 16 Pulse 60 Pulse Source Monitor Temp 97.7 F L Temp Source Temporal Pulse Oximetry (%) 98 Oxygen Delivery Method room air Intake Visit Reasons: PAD discuss bypass Is patient in pain?: No Allergies No Known Allergies Allergy (Verified 10/18/24 11:33) Medications ???Medication ???Instructions ???Recorded ???Confirmed ???Type aspirin 81 mg chewable tablet 81 mg PO DAILY@0800 09/27/1610/22 History nitroglycerin 0.4 mg sublingual 0.4 mg sublingual Q5-15M PRN chest 10/16/22 10/22/24 Rx tablet pain #25 tabs clopidogrel 75 mg tablet 75 mg PO DAILY #90 tabs 10/21/23 0 10/22/24 Rx potassium chloride 10 mEq 20 meq (2 x 10 mEq) PO DAILY #180 10/21/23 10/22/24 Rx capsule,extended release caps vitamin D3 125 mcg (5,000 1 cap PO DAILY 12/06/23 10/22/24 H istory unit)-vitamin K2 100 mcg capsule carvedilol 12.5 mg tablet (Coreg) 12.5 mg PO BID #180 tabs 03/16/24 10/22/24 Rx furosemide 40 mg tablet 40 mg PO Q OTHER DAY #90 tabs 02/2310/22/24 Rx lisinopril 20 mg tablet 20 mg PO BID #180 tabs 03/16/24 Rx magnesium citrate 100 mg capsule 100 mg PO QDAY 07/02/24 10/22/24 H istory Is last menstrual period known: No Post menopausal: Yes Patient : No Have you fallen in the past year?: Yes PFSH Medical History PAD (peripheral artery disease) Atrioventricular node dysfunction Sinus node dysfunction 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) Nicotine dependence Essential (primary) hypertension Ischemic cardiomyopathy Chronic systolic congestive heart failure Atrioventricular block Old myocardial infarction Atherosclerosis of coronary artery 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 Tobacco abuse Psoriasis Hypercholesteremia Syncope and collapse Hyperlipemia Hypokalemia History of syncope History of sinus bradycardia Surgical History History of electrophysiologic study (03/07/12) Biventricular ICD (implantable cardioverter-defibril lator) in place (08/04/20) History of coronary artery stent placement (03/06/12) H/O coronary artery bypass surgery (04/28/97) Saphenous vein graft to CFX saphenous vein graft to RCA H/O tubal ligation History of left heart catheterization (06/27/20) Family History Father CAD (coronary artery disease) Myocardial infarction Brother CAD (coronary artery disease) Myocardial infarction Mother Cancer Social History household members: spouse and family housing: house Smoking Status: Heavy Smoker (>10/day) second hand exposure: Yes alcohol intake: current alcohol intake frequency: holidays/special occasions only substance use type: does not use caffeine: Yes Type: carbonated beverages Number of servings: 4 what type of physical activity do you participate in: none seatbelt use: always do you feel safe at home: Yes HPI HPI HPI: NELLI RIVERS, is a 78 F who presents to the office today for evaluation of left lower extremity progressive claudication now very short distance and limiting mobility in her home. She has had some degree of symptoms for about 7 years, though things have worsened significantly over the past year. No foot wounds or rest pain, no discrete time when symptoms abruptly worsened. No prior lower extremity revascularization procedures. ROS General General: No weight change, appetite, fatigue, colon cancer, breast cancer or weakness HEENT HEENT: No difficulty swallowing, eye injury, eye surgery, swollen glands or hoarseness Endo Endocrine: No thyroid disease, diabetes mellitus, thyroid cancer, Hair loss, heat intolerance or cold intolerance Skin Skin: No rash or changing moles Musc Musculoskeletal: No back problems, arthritis, rheumatoid arthritis, gout or joint pain Cardio Cardiovascular: Yes pacemaker, heart disease, atrial fibrillation, high blood pressure, heart attack, heart stent, palpitations and shortness of breath with exertion; No murmur or chest pain Psych Psychiatric: No depression, anxiety or hearing voices Resp Respiratory: No shortness of breath, No sleep apnea, No cough, N (more content not included)... Normal [facility] Urine Cultureon 10-20-2024 U[facility] Mixed Gram Pos Gram Neg Org [place] Count 50,000-80,000 MIXC Mixed contaminants. Submit a new specimen if indicated. Normal [facility] Comment on above: Performed By: #### M 100.0373 ####[facility] [id number] [place], [place], [address] Absolute lymphocyte countOrd ered By: Nikita Pearson on 10-18-2024 Lymphocytes Auto (Unsp spec) [#/Vol] 2.42 10*3/uL 0.83-4.51 [facility] Absolute neutrophil countOrd ered By: Nikita Pearson on 10-18-2024 Neutrophils (Bld) [#/Vol] 5.0 10*3/uL 2.0-7.7 [facility] Anion gap in Serum or Plasma Ordered By: Nikita Pearson on 10-18-2024 Anion gap [Moles/Vol] 14 mmol/L 11-05 [facility] Automated lymphocyte count a s percentage of total leukocytesOrdered By: Nikita Pearson on 10-18-2024 Lymphocytes/100 WBC Auto (Unsp spec) 30.5 % [facility] BUN/creatinine ratioOrdered By: Nikita Pearson on 10-18-2024 Urea nitrogen/Creatinine [Mass ratio] 19.1 mg/mg - [facility] Basic Metabolic Profile (BMP )on 10-18-2024 BUN/CRE 19.1 RATIO Normal 04-12 [facility] Comment on above: Performed By: #### L 500.2500, L100.0100 #### [facility] Laboratory [address] [place], [address] Calcium [Mass/Vol] 9.6 mg/dL Normal 7.6-11.0 [facility] Comment on above: Performed By: #### L 500.2500, L100.0100 #### [facility] Laboratory [address] [place], [address] Chloride [Moles/Vol] 102 mmol/L Normal 98-108 [facility] Comment on above: Performed By: #### L 500.2500, L100.0100 #### [facility] Laboratory [address] [place], [address] CO2 [Moles/Vol] 22.2 mmol/L Normal 21.0-32.0 [facility] Comment on above: Performed By: #### L 500.2500, L100.0100 #### [facility] Laboratory [address] [place], [address] Creatinine [Mass/Vol] 1.16 mg/dL Normal 0.70-1.20 [facility] Comment on above: Performed By: #### L 500.2500, L100.0100 #### [facility] Laboratory [address] [place], [address] ECRCL 35.76 ml/min Low 50-250 [facility] Comment on above: Performed By: #### L 500.2500, L100.0100 #### [facility] Laboratory [address] [place], [address] GAP 14 Normal 5-15 [facility] Comment on above: Performed By: #### L 500.2500, L100.0100 #### [facility] Laboratory [address] [place], [address] GFR/1.73 sq M.predicted among non-blacks MDRD (S/P/Bld) [Vol rate/Area] 49 mL/min/{1.73_m2} Low >60 [facility] Comment on above: Result Comment: mL/m in/1.73m2 CKD-EPI Creatinine Equation (2020) Performed By: #### L 500.2500, L100.0100 #### [facility] Laboratory [address] [place], [address] Glucose [Mass/Vol] 120 mg/dL High 70-99 [facility] Comment on above: Performed By: #### L 500.2500, L100.0100 #### [facility] Laboratory [address] [place], [address] Potassium [Moles/Vol] 4.4 mmol/L Normal 3.3-5.1 [facility] Comment on above: Performed By: #### L 500.2500, L100.0100 #### [facility] Laboratory [address] [place], [address] Sodium [Moles/Vol] 138 mmol/L Normal 133-145 [facility] Comment on above: Performed By: #### L 500.2500, L100.0100 #### [facility] Laboratory [address] [place], [address] Urea nitrogen [Mass/Vol] 22 mg/dL High 4-19 [facility] Comment on above: Performed By: #### L 500.2500, L100.0100 #### [facility] [address], [address] Basophil percentageOrdered B y: Nikita Pearson on 10-18-2024 Basophils/100 WBC (Bld) 0.5 % 0-1 [facility] Bilirubin Test strip Ql (U)O rdered By: Nikita Pearson on 10-18-2024 Bilirubin Ql (U) Negative Negative [facility] CBC W/Diff, Automatedon 09-23 Absolute Lymph 2.42 X10 3/uL Normal 0.83-4.51 [facility] Comment on above: Performed By: #### L 500.2500, L100.0100 #### [facility] Laboratory [address] [place], [address] Absolute Neut 5.0 X10 3/uL Normal 2.0-7.7 [facility] Comment on above: Performed By: #### L 500.2500, L100.0100 #### [facility] Laboratory [address] [place], [address] Basophils/100 WBC (Bld) 0.5 % Normal 0-1 [facility] Comment on above: Performed By: #### L 500.2500, L100.0100 #### [facility] Laboratory [address] [place], [address] Eosinophils/100 WBC (Bld) 1.5 % Normal 0-5 [facility] Comment on above: Performed By: #### L 500.2500, L100.0100 #### [facility] Laboratory [address] [place], [address] Erythrocyte distribution width (RBC) [Ratio] 13.5 % Normal 11.6-14.6 [facility] Comment on above: Performed By: #### L 500.2500, L100.0100 #### [facility] Laboratory [address] [place], [address] Hematocrit (Bld) [Volume fraction] 37.6 % Normal 37-47 [facility] Comment on above: Performed By: #### L 500.2500, L100.0100 #### [facility] Laboratory [address] [place], [address] Hemoglobin (Bld) [Mass/Vol] 13.0 g/dL Normal 12.0-15.0 [facility] Comment on above: Performed By: #### L 500.2500, L100.0100 #### [facility] Laboratory [address] [place], [address] IG% 0.300 Normal 0.0-0.9 [facility] Comment on above: Result Comment: IG% - Immature Granulocytes (promyelocytes, myelocytes and metamyelocytes) > 1% indicates that a LEFT SHIFT is Present. Performed By: #### L 500.2500, L100.0100 #### [facility] Laboratory [address] [place], [address] Lymphocytes/100 WBC (Bld) 30.5 % Normal 19-41 [facility] Comment on above: Performed By: #### L 500.2500, L100.0100 #### [facility] Laboratory [address] [place], [address] MCH (RBC) [Entitic mass] 31.6 pg Normal 27.0-32.0 [facility] Comment on above: Performed By: #### L 500.2500, L100.0100 #### [facility] Laboratory [address] [place], [address] MCHC (RBC) [Mass/Vol] 34.6 g/dL Normal 32-36 [facility] Comment on above: Performed By: #### L 500.2500, L100.0100 #### [facility] Laboratory [address] [place], [address] MCV (RBC) [Entitic vol] 91.3 fL Normal 81-99 [facility] Comment on above: Performed By: #### L 500.2500, L100.0100 #### [facility] Laboratory [address] [place], [address] Monocytes/100 WBC (Bld) 4.4 % Normal 0-10 [facility] Comment on above: Performed By: #### L 500.2500, L100.0100 #### [facility] Laboratory [address] [place], [address] Neutrophils/100 WBC (Bld) 62.8 % Normal 47-70 [facility] Comment on above: Performed By: #### L 500.2500, L100.0100 #### [facility] Laboratory [address] [place], [address] Nucleated RBC (Bld) [#/Vol] 0 10*3/uL Normal 0-5 [facility] Comment on above: Performed By: #### L 500.2500, L100.0100 #### [facility] Laboratory [address] [place], [address] Platelet mean volume (Bld) [Entitic vol] 11.7 fL Normal 6.2-12.0 [facility] Comment on above: Performed By: #### L 500.2500, L100.0100 #### [facility] Laboratory [address] [place], [address] Platelets (Bld) [#/Vol] 170 10*3/uL Normal 150-450 [facility] Comment on above: Performed By: #### L 500.2500, L100.0100 #### [facility] Laboratory [address] [place], [address] RBC (Bld) [#/Vol] 4.12 10*6/uL Low 4.2-5.4 [facility] Comment on above: Performed By: #### L 500.2500, L100.0100 #### [facility] Laboratory [address] [place], [address] RDW SD 45.2 fl High 35.1-43.9 [facility] Comment on above: Performed By: #### L 500.2500, L100.0100 #### [facility] Laboratory [address] [place], [address] WBC (Bld) [#/Vol] 7.9 10*3/uL Normal 4.4-11.0 [facility] Comment on above: Performed By: #### L 500.2500, L100.0100 #### [facility] Laboratory [address] [place], [address] CPK Total, Creatine Kinaseon 10-18-2024 CPK TOTAL 48 U/L Normal 24-195 [facility] Comment on above: Performed By: #### L 500.2500, L100.0100 #### [facility] Laboratory [address] [place], [address] CTA Abd w/Runoff W/WO Contra ston 10-18-2024 CTA Abd w/Runoff W/WO Contrast [facility] Imaging Services [address] [place] [address] CTA Abd w/Runoff W/WO Contrast MR#: [id number] Acct: [id number] Name: NELLI RIVERS Rep #: [id number] : 1945 F 78 From: Otis Valenzuela MD PCP: Dr. 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 Multiplanar and multisequence images were obtained. 3D post processing, 3D reconstructions, Maximum intensity projection (MIPs) Volume rendering and Shaded surface rendering was provided. One or more dose reduction techniques were used (e.g., Automated exposure control, adjustment of the mA and/or kV according to patient size, use of iterative reconstruction technique). FINDINGS: Aorta: Moderate amount of peripheral calcified and noncalcified plaque producing moderate (60%) stenosis of the infrarenal abdominal aorta between the renal artery origin and the inferior mesenteric artery origin. Iliac Arteries: Large amount of plaque within the iliac arteries producing a severe (80%) stenosis of the right common iliac artery common right internal iliac artery, and right external iliac artery. Occluded proximal left common iliac artery with reconstitution at the bifurcation. Severely diseased external and internal iliac arteries with a proximally 80%) stenosis. Celiac: Widely patent SMA: Widely patent JORDAN : Widely patent. Right Renal: Single right renal artery without severe stenosis. Left Renal: Single left renal artery without severe stenosis. Other Findings: Severe (80%) stenosis of the right common femoral artery. Patent profundus femoris artery. Moderately diseased right superficial femoral artery with severe (80%) stenosis proximally and at the adductor canal. Severe (80%) stenosis of the proximal right popliteal artery. Single-vessel runoff of the right VA of the right peroneal artery with an occluded proximal right anterior tibial artery and posterior tibial artery. Severe (80%) stenosis of the left common femoral artery. Patent profunda femoris artery. Occluded left superficial femoral artery with reconstitution at the adductor canal. Severely disease left popliteal artery. Two- vessel runoff on the left with an occluded proximal left posterior tibial artery. CT/CTA Abd w/Runoff W/WO Contrast IMPRESSION: Moderate (60%) aortic stenosis. No acute or chronic mesenteric ischemia renal artery stenosis. Severely diseased iliac arteries with an occluded proximal left common iliac artery. Severe (80%) stenosis of the right common femoral artery. Moderately diseased right superficial femoral artery with severe (80%) stenoses proximally and at the adductor canal. Severe (80%) stenosis of the right popliteal artery. Single-vessel runoff on the right via the right peroneal artery with an occluded right anterior and Pitocin posterior tibial arteries. Severe (80%) stenosis of the left common femoral artery. Occluded left superficial femoral artery which with reconstitution at the adductor canal. Severely diseased left popliteal artery. Two-vessel runoff to the left with an occluded left proximal left posterior tibial artery. Reading Location: [id number] CC: KELLI Pearson; Dr. Jolanta Grant MD Job Forwarder: Signed Normal [facility] Carbon dioxide, total [Moles /volume] in Central venous bloodOrdered By: Nikita Pearson on 10-18-2024 CO2 [Moles/Vol] 22.2 mmol/L 21.0-32.0 [facility] Chloride assayOrdered By: Mandie Pearson on 10-18-2024 Chloride [Moles/Vol] 102 mmol/L 98-108 [facility] Emergency Department Summary on 10-18-2024 Emergency Department Summary [facility] Medical Records Department [address] [place] [address] Emergency Department Summary 10/18/24 MR#: [id number] Acct: [id number] Name: NELLI RIVERS Rep #: [id number] : 1945 78 From: Dina Camp DO PCP: Dr. Jolanta Grant MD Status:DEP ER Location: ED HPI History of Present Illness Chief Complaint: Lower Extremity Injury Narrative Narrative: Patient is a 78-year-old female with history of ischemic cardiomyopathy,, PAD, hyperlipidemia who [facility] for ongoing pain to her left leg. Patient states that she is been having pain with her left leg on and off for the last 7 years. Patient states that most of the pain is when she is walking, whenever she rests better. She did see a vascular surgeon, she had a slight blockage however nothing that required surgery. Patient was at spiritism today, was walking the bathroom and states that the pain in the left leg was severe and she needed to sit down. She did come by EMS. Denies any fever chills nausea or vomiting peer denies any history of DVT. 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) Nicotine dependence Essential (primary) hypertension Ischemic cardiomyopathy Chronic systolic congestive heart failure Atrioventricular block Old myocardial infarction Atherosclerosis of coronary artery 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 Tobacco abuse Psoriasis Hypercholesteremia Syncope and collapse Hyperlipemia Hypokalemia History of syncope History of sinus bradycardia Home Medications ???Medication ???Instructions ???Recorded ???Last Taken ???Type aspirin 81 mg chewable tablet 81 mg PO DAILY@0800 09/27/1606/27 History nitroglycerin 0.4 mg sublingual 0.4 mg sublingual Q5-15M PRN chest 10/16/22 Unknown Rx tablet pain #25 tabs clopidogrel 75 mg tablet 75 mg PO DAILY #90 tabs 10/21/23 U nknown Rx potassium chloride 10 mEq 20 meq (2 x 10 mEq) PO DAILY #180 10/21/23 Unknown Rx capsule,extended release caps vitamin D3 125 mcg (5,000 1 cap PO DAILY 12/06/23 Unknown Hi story unit)-vitamin K2 100 mcg capsule carvedilol 12.5 mg tablet (Coreg) 12.5 mg PO BID #180 tabs 03/16/24 Unknown Rx furosemide 40 mg tablet 40 mg PO Q OTHER DAY #90 tabs 02/23 09/14 Unknown Rx lisinopril 20 mg tablet 20 mg PO BID #180 tabs 03/16/24 Un known Rx magnesium citrate 100 mg capsule 100 mg PO QDAY 07/02/24 Unknown Hi story famotidine 20 mg tablet (Pepcid) 20 mg PO DAILY #30 tabs 10/18/24 U nknown Rx Allergy/AdvReac Type Severity Reaction Status Date / Time No Known Allergies Allergy Verified 10/18/24 11:33 Family History Father CAD (coronary artery disease) Myocardial infarction Brother CAD (coronary artery disease) Myocardial infarction Mother Cancer Surgical History History of electrophysiologic study (03/07/12) Biventricular ICD (implantable cardioverter-defibril lator) in place (08/04/20) History of coronary artery stent placement (03/06/12) H/O coronary artery bypass surgery (04/28/97) Saphenous vein graft to CFX saphenous vein graft to RCA H/O tubal ligation History of left heart catheterization (06/27/20) Social History (Updated 10/18/24 @ 11:34 by Shakira Gaffney) household members: spouse and family housing: house Smoking Status: Current every day smoker tobacco type: cigarettes second hand exposure: Yes alcohol intake: current alcohol intake frequency: holidays/special occasions only substance use type: does not use caffeine: Yes Type: carbonated beverages Number of servings: 4 what type of physical activity do you participate in: none seatbelt use: always do you feel safe at home: Yes ROS ROS ED ROS Narrative Constitutional: Negative for fever, chills, weight loss, weakness Eyes: Negative for vision loss, vision change, double vision ENT: Negative for any sore throat, ear pain, congestion Cardiovascular: Negative for any chest pain, tightness, palpitations Respiratory: Negative for any cough, sputum production, hemoptysis, dyspnea, dyspnea on exertion, orthopnea Gastrointestinal: Negative for any abdominal pain, nausea, vomiting, diarrhea, constipation, blood in stool, blood in vomit : Negative for any urinary frequency, dysuria, retention, blood in urine Muscle skeletal: Negative for any neck pain, back pain. Positive for pain to the left leg Neurological: Negative for any headache, syncope, dizziness Skin: Negative for any rashes, itching, abrasions, lacerations Psychiatric: Negative for any depression, anxiety, stress, green (more content not included)... Normal [facility] Eosinophil percentageOrdered By: Nikita Pearson on 10-18-2024 Eosinophils/100 WBC (Bld) 1.5 % 0-5 [facility] Erythrocyte distribution wid th ratioOrdered By: Nikita Pearson on 10-18-2024 Erythrocyte distribution width (RBC) [Ratio] 13.5 % 11.6-14.6 [facility] Erythrocyte distribution wid th standard deviationOrdered By: Nikita Pearson on 10-18-2024 Erythrocyte distribution width (RBC) [Ratio] 45.2 fl High 35.1-43.9 [facility] Glomerular filtration rate ( GFR) estimation/1.73 sq m using serum, plasma, or whole bOrdered By: Nikita Pearson on 10-18-2024 GFR/1.73 sq M.predicted among non-blacks MDRD (S/P/Bld) [Vol rate/Area] 49 mL/min/{1.73_m2} Low >60 [facility] Comment on above: mL/min/1.73m2 CKD-EP I Creatinine Equation (2020) Hematocrit Auto (Bld) [Volum e fraction]Ordered By: Nikita Pearson on 10-18-2024 Hematocrit (Bld) [Volume fraction] 37.6 % 37-47 [facility] Hemoglobin measurementOrdere d By: Nikita Pearson on 10-18-2024 Hemoglobin (Bld) [Mass/Vol] 13.0 g/dL 12.0-15.0 [facility] Immature granulocytes/100 WB C Auto (Bld)Ordered By: Nikita Pearson on 10-18-2024 Immature granulocytes/100 WBC (Bld) 0.300 % 0.0-0.9 [facility] Comment on above: IG% - Immature Granu locytes (promyelocytes, myelocytes and metamyelocytes) > 1% indicates that a LEFT SHIFT is Present. International normalized rat io (INR) calculationOrdered By: Nikita Pearson on 10-18-2024 INR Coag (Bld) [Relative time] 1.0 {INR} [facility] Ketones Test strip Ql (U)Ord ered By: Nikita Pearson on 10-18-2024 Ketones Ql (U) Negative Negative [facility] MCV (mean corpuscular volume ) determinationOrdered By: Nikita Pearson on 10-18-2024 MCV (RBC) [Entitic vol] 91.3 fL 81-99 [facility] Mean corpuscular hemoglobin (MCH) determinationOrdered By: Nikita Pearson 10-18-2024 MCH (RBC) [Entitic mass] 31.6 pg 27.0-32.0 [facility] Mean corpuscular hemoglobin concentration (MCHC) determinationOrdered By: Nikita Pearson 10-18-2024 MCHC (RBC) [Mass/Vol] 34.6 g/dL 32-36 [facility] Mean platelet volume determi nationOrdered By: Nikita Pearson 10-18-2024 Platelet mean volume (Bld) [Entitic vol] 11.7 fL 6.2-12.0 [facility] Microscopic analysis of urin e for red blood cells (RBC)Ordered By: Nikita Pearson on 10-18-2024 Microscopic analysis of urine for red blood cells (RBC) 0-5 SEEN /hpf 0-5 [facility] Monocyte percentageOrdered B y: Nikita Pearson on 10-18-2024 Monocytes/100 WBC (Bld) 4.4 % 0-10 [facility] Mucus LM Ql (Urine sed)Order ed By: Nikita Pearson on 10-18-2024 Mucus Ql (Urine sed) 0 SEEN /hpf [facility] Neutrophil percentageOrdered By: Nikita Pearson on 10-18-2024 Neutrophils/100 WBC (Bld) 62.8 % 47-70 [facility] Nitrite Test strip Ql (U)Ord ered By: Nikiat Pearson on 10-18-2024 Nitrite Ql (U) Negative Negative [facility] Nucleated red blood cell per centageOrdered By: Nikita Pearson on 10-18-2024 Nucleated RBC/100 WBC (Bld) [Ratio] 0 % 0-5 [facility] Platelet countOrdered By: Mandie ul Michel on 10-18-2024 Platelets (Bld) [#/Vol] 170 10*3/uL 150-450 [facility] Potassium measurement (mass/ volume)Ordered By: Nikita Pearson on 10-18-2024 Potassium (Unsp spec) [Mass/Vol] 4.4 mmol/L 3.3-5.1 [facility] Protein Test strip Ql (U)Ord ered By: Nikita Pearson on 10-18-2024 Protein Ql (U) 15 mg/dl High Negative [facility] Prothrombin Time w/INRon INR Coag (PPP) [Relative time] 1.0 {INR} Normal [facility] Comment on above: Performed By: #### L 300.3900 ####[facility] [id number] [place], [place], [id number] PT Coag (PPP) [Time] 13.1 s Normal 11.7-14.9 [facility] Comment on above: Performed By: #### L 300.3900 ####[facility] [id number] [place], [address] Prothrombin timeOrdered By: Nikita Pearson on 10-18-2024 PT Coag (PPP) [Time] 13.1 s 11.7-14.9 [facility] RBC Auto (Bld) [#/Vol]Ordere d By: Nikita Pearson on 10-18-2024 RBC (Bld) [#/Vol] 4.12 10*6/uL Low 4.2-5.4 [facility] Serum creatinine measurement (mass/volume)Ordered By: Nikita Pearson on 10-18-2024 Creatinine [Mass/Vol] 1.16 mg/dL 0.70-1.20 [facility] Serum glucose measurement (m ass/volume)Ordered By: Nikita Pearson on 10-18-2024 Glucose [Mass/Vol] 120 mg/dL High 70-99 [facility] Serum or plasma calcium patricia urement (mass/volume)Ordered By: Nikita Pearson on 10-18-2024 Calcium [Mass/Vol] 9.6 mg/dL 7.6-11.0 [facility] Serum or plasma creatine kin ase activityOrdered By: Nikita Pearson on 10-18-2024 CK [Catalytic activity/Vol] 48 U/L 24-195 [facility] Serum or plasma urea nitroge n measurement (mass/volume)Ordered By: Nikita Pearson on 10-18-2024 Urea nitrogen [Mass/Vol] 22 mg/dL High 4-19 [facility] Sodium levelOrdered By: Nikita Pearson on 10-18-2024 Sodium [Moles/Vol] 138 mmol/L 133-145 [facility] Squamous epithelial cells de tection in urine sediment by light microscopyOrdered By: Nikita Pearson on 10-18-2024 Epithelial cells.squamous LM Ql (Urine sed) 0-5 SEEN /hpf 5-10 [facility] Urinalysis, Completeon 10-18 BACTERIA 1+ /hpf Normal None Seen [facility] Comment on above: Order Comment: COLLE CTOR TO SPECIFY Performed By: #### L 500.2500, L100.0100 #### [facility] [address] [place], [address] EPI,SQUAMOUS 0-5 SEEN Normal 5-10 [facility] Comment on above: Order Comment: ORALIA CTOR TO SPECIFY Performed By: #### L 500.2500, L100.0100 #### [facility] [address] [place], [address] RBC 0-5 SEEN Normal 0-5 [facility] Comment on above: Order Comment: ORALIA CTOR TO SPECIFY Performed By: #### L 500.2500, L100.0100 #### [facility] [address] [place], [address] WBC 0-5 SEEN Normal 0-5 [facility] Comment on above: Order Comment: ORALIA CTOR TO SPECIFY Performed By: #### L 500.2500, L100.0100 #### [facility] [address] [place], [address] Mucus Ql (Urine sed) 0 SEEN Normal [facility] Comment on above: Order Comment: ORALIA CTOR TO SPECIFY Performed By: #### L 500.2500, L100.0100 #### [facility] [address] [place], [address] Urine clarityOrdered By: Gricel Pearson on 10-18-2024 Clarity (U) Clear Clear [facility] Urine color determinationOrd ered By: Nikita Pearson on 10-18-2024 Color (U) Yellow Yellow [facility] Urine cultureOrdered By: Gricel Pearson on 10-18-2024 Bacteria identified Cx Nom (U) Mixed Gram Pos & Gram Neg Org Abnormal [facility] Urine glucose detectionOrder ed By: Nikita Pearson on 10-18-2024 Glucose Ql (U) Normal mg/dl Normal [facility] Urine leukocyte esterase det ection by dipstickOrdered By: Nikita Pearson on 10-18-2024 Leukocyte esterase Test strip Ql (U) 100 /ul High Negative [facility] Urine pHOrdered By: Nikita agustin on 10-18-2024 pH (U) 6.0 [pH] 5.0 - 8.0 [facility] Urine sediment bacteria coun t by microscopy (number/high power field)Ordered By: Nikita Pearson on 10-18-2024 Bacteria LM.HPF (Urine sed) [#/Area] 1 /[HPF] None Seen [facility] Urine specific gravity measu rementOrdered By: Nikita Pearson on 10-18-2024 Specific gravity (U) [Rel density] 1.010 1.002-1.030 [facility] Urine urobilinogen measureme ntOrdered By: Nikita Pearson on 10-18-2024 Urobilinogen Ql (U) Normal mg/dl Normal [facility] White blood cell (WBC) count Ordered By: Nikita Pearson on 10-18-2024 WBC (Bld) [#/Vol] 7.9 10*3/uL 4.4-11.0 [facility] White blood cell countOrdere d By: Nikita Pearson on 10-18-2024 White blood cell count 0-5 SEEN /hpf 0-5 [facility] Cardiology Visit Reporton Cardiology Visit Report [facility] [address] [place], [place] [address] OFFICE VISIT Date of Service: 07/02/24 MR#: [id number] Acct: [id number] Name: NELLI RIVERS Rep #: [id number] : 1945 Provider: Dr. Yuniel Tsai MD Age/Sex: 78/F Location: [facility] [place] Status: Signed HPI HPI History of Present Illness Details: NELLI RIVERS, is a 78 F who presents to the office today for a cardiovascular outpatient follow- up. She has a history of coronary artery disease status post bypass surgery in 1996 with an VERNON to the LAD, SVG to RCA, and SVG to LCx. She had subsequent angioplasty and stenting to proximal and distal RCA in 2011. Her most recent cardiac catheterization from June 2020 demonstrated occlusion of her to bypass saphenous vein grafts. The VERNON to the LAD was patent. She continues to do well but her major problem is actually belching. She also has a history of ischemic cardiomyopathy, status post biventricular ICD implantation, hyperlipidemia, and tobacco abuse. She denies chest, arm, jaw, or neck discomfort. She denies palpitations. She denies bilateral lower extremity edema. She denies claudication. She denies shortness of breath with activity, shortness of breath at rest, orthopnea, or PND. She denies chronic cough. She denies significant, sudden weight gain. She states lightheadedness when seen in spiritism. She denies dizziness, near- syncope, or syncope. She denies blood in urine, blood in stool, or epistaxis. He denies fever with chills. She denies myalgia. She denies fatigue. Her exercise level has remained stable. Intake Vital Signs 04/29/23 10:54 12/06/23 11:02 07/02/24 10:42 Height 5 ft 2 in 5 ft 2 in 5 ft 2 in Weight: 145 lb BMI 26.5 BP 111/71 Blood Pressure Location Lt brachial Position Sitting Respiration 16 Pulse 63 Pulse Source Monitor Intake Visit Reasons: 1 y fu / JADA @ 11 Trapeze Performer Required: No Accompanied by: Self Is patient in pain?: No Allergies No Known Allergies Allergy (Verified 07/02/24 11:30) Medications ???Medication ???Instructions ???Recorded ???Confirmed ???Type aspirin 81 mg chewable tablet 81 mg PO DAILY@0800 09/27/16 07/02/24 History nitroglycerin 0.4 mg sublingual 0.4 mg sublingual Q5-15M PRN chest 10/16/22 07/02/24 Rx tablet pain #25 tabs clopidogrel 75 mg tablet 75 mg PO DAILY #90 tabs 10/21/23 07/02/24 Rx potassium chloride 10 mEq 20 meq (2 x 10 mEq) PO DAILY #180 10/21/23 07/02/24 Rx capsule,extended release caps vitamin D3 125 mcg (5,000 1 cap PO DAILY 12/06/23 07/02/24 History unit)-vitamin K2 100 mcg capsule carvedilol 12.5 mg tablet (Coreg) 12.5 mg PO BID #180 tabs 03/16/24 07/02/24 Rx furosemide 40 mg tablet 40 mg PO Q OTHER DAY #90 tabs 03/16/24 07/02/24 Rx lisinopril 20 mg tablet 20 mg PO BID #180 tabs 03/16/24 07/02/24 Rx magnesium citrate 100 mg capsule 100 mg PO QDAY 07/02/24 07/02/24 History Have you fallen in the past year?: No PFSH Medical History PAD (peripheral artery disease) Atrioventricular node dysfunction Sinus node dysfunction 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) Nicotine dependence Essential (primary) hypertension Ischemic cardiomyopathy Chronic systolic congestive heart failure Atrioventricular block Old myocardial infarction Atherosclerosis of coronary artery 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 Tobacco abuse Psoriasis Hypercholesteremia Syncope and collapse Hyperlipemia Hypokalemia History of syncope History of sinus bradycardia Surgical History History of electrophysiologic study (03/07/12) Biventricular ICD (implantable cardioverter-defibril lator) in place (08/04/20) History of coronary artery stent placement (03/06/12) H/O coronary artery bypass surgery (04/28/97) Saphenous vein graft to CFX saphenous vein graft to RCA H/O tubal ligation History of left heart catheterization (06/27/20) Family History Father CAD (coronary artery disease) Myocardial infarction Brother CAD (coronary artery disease) Myocardial infarction Mother Cancer Social History Smoking Status: Current every day smoker second hand exposure: Yes alcohol intake: current alcohol intake frequency: holidays/special occasions only substance use type: does not use caffeine: Yes Type: carbonated beverages Number of servings: 4 what type of physical activity do you participate in: none seatbelt use: always do you feel safe at home: Yes ROS Const Const: Positive for difficulty sleeping; Negative for fatigue, weakness, headache(s) or daytime sleepiness EN (more content not included)... Normal [facility] Pacemaker Checkon 07-02-2024 Pacemaker Check [facility] [address] [place], [place] [address]. [address] [place], [place] [address] Pacemaker Check Date of Service: 01/03/189 MR#: [id number] Acct: [id number] Name: NELLI RIVERS Rep #: [id number] : 1945 From: Loree Marsh Age/Sex: 78/F Location: [facility] [place] Status: Signed Billing Codes ICD Device Billin ICD Dev Prog Eval, Multi Assessment and Plan Assessment and Plan (1) Ischemic cardiomyopathy: Status: Chronic (2) Chronic systolic congestive heart failure: Status: Chronic (3) Biventricular ICD (implantable cardioverter-defibril lator) in place: Status: Chronic Comment: Implanted @ [facility] 03/07/2012; Gen change 08/04/[address] [facility] [place] per Dr. Juan Cosme. (4) Atrioventricular node dysfunction: Status: Chronic (5) Sinus node dysfunction: Status: Chronic 07/02/24 144 Date Loree Concepcion Signature: Date (if applicable) CC: Normal [facility] Echo Completeon 12-30-2023 Echo Complete [facility] [address] [place] [id number] Echo Complete 12/30/23 1354 MR#: [id number] Acct: [id number] Name: NELLI RIVERS Rep #: [id number] : 1945 78 From: Yuniel Tsai MD Attending Dr: Dr. Yuniel Tsai MD Status: MAAME ALAMO Ordering Dr: Hira Newman NP ENGINE COWLING INSTALLER-C Date: 12/30/23 Location: [facility] Sex: F C Admitted: Reason For Study: CONGESTIVE HEART FAILURE Procedure This was a 2D Doppler, Color Flow transthoracic echocardiogram. Myocardial strain analysis was performed in this exam to aid in the assessment of cardiac function. Exam performed in department. Left Ventricle Normal LV size. The left ventricular ejection fraction is 40 %. Stage 1 diastolic dysfunction. There are regional wall motion abnormalities as specified. Right Ventricle Normal RV size. ICD or pacer leads identified within the right ventricle. Normal systolic function. Tricuspid Valve Normal tricuspid valve. Mild (1+) tricuspid valve insufficiency. Pulmonary artery systolic pressure is 30 mmHg. Pulmonic Valve Normal pulmonic valve. Great Vessels Normal aortic root. The pulmonary artery is normal size. Pericardium/Pleural No pericardial effusion. MMode/2D Measurements Calculations LVIDd: 4.7 cm IVSd: 1.1 cm LVOT diam: 2.0 cm LVIDs: 3.5 cm LVPWd: 1.2 cm RVDd: 3.5 cm FS: 24.3 % LVOT area: 3.2 cm2 Ao root diam: 2.9 cm LAV(MOD-bp): 50.3 ml LVAd ap4: 21.1 cm2 LAV(MOD-bp) Indexed: 30.2 ml/m2 LVLd ap4: 6.8 cm LAV(MOD-sp2): 57.6 ml EDV(MOD-sp4): 53.9 ml LAV(MOD-sp4): 43.4 ml EDV(sp4-el): 56.0 ml LVAs ap4: 16.3 cm2 LVLs ap4: 5.8 cm ESV(MOD-sp4): 36.4 ml ESV(sp4-el): 38.9 ml EF(MOD-sp4): 32.6 % EF(sp4-el): 30.6 % LVAd ap2: 18.8 cm2 SV(MOD-sp4): 17.6 ml SV(MOD-sp2): 17.5 ml LVLd ap2: 6.2 cm EDV(MOD-sp2): 45.3 ml EDV(sp2-el): 48.0 ml LVAs ap2: 14.4 cm2 LVLs ap2: 6.0 cm ESV(MOD-sp2): 27.7 ml ESV(sp2-el): 29.4 ml EF(MOD-sp2): 38.7 % SV(sp4-el): 17.2 ml LA A4 area: 17.6 cm2 LA dimension(2D): 4.1 cm RA A4 area: 11.7 cm2 TAPSE: 1.6 cm Time Measurements MV dec time: 0.21 sec Doppler Measurements Calculations MV E max stevie: 70.5 cm/sec Lat Peak E' Stevie: 6.7 cm/sec Med Peak E' Stevie: 5.2 cm/sec MV A max stevie: 73.5 cm/sec E/E' lat: 10.5 E/E' med: 13.7 MV E/A: 0.96 MV dec slope: 333.7 cm/sec2 Ao V2 max: 180.9 cm/sec LV V1 max: 123.8 cm/sec Ao max P.1 mmHg LV V1 max P.1 mmHg Ao V2 mean: 118.6 cm/sec LV V1 mean P.4 mmHg Ao mean P.5 mmHg LV V1 mean: 85.8 cm/sec Ao V2 VTI: 42.0 cm LV V1 VTI: 27.9 cm AV (velocity ratio): 0.66 NIYAH(I,D): 2.1 cm2 NIYAH(V,D): 2.2 cm2 SV(LVOT): 88.3 ml PA V2 max: 83.2 cm/sec TR max stevie: 258.8 cm/sec PA max PG (full): 1.5 mmHg TR max P.8 mmHg ECHO/Echo Complete Interpretation Summary The left ventricular ejection fraction is 40 %. Stage 1 diastolic dysfunction. Pulmonary artery systolic pressure is 30 mmHg. The global longitudinal strain = -12.1% (abnormal). The global longitudinal strain is moderately abnormal. Ordering Physician: Hira Newman Referring Physician: Hoang Grant M.D. Performed By: Aparna Dutton RDCS 12/30/23 1739 Date Yuniel Tsai MD CC: ENGINE COWLING INSTALLER-C Hira Newman; Dr. Yuniel Tsai MD; Dr. Jolanta Grant MD Date Dictated: 12/30/23 1354 Date Transcribed: 12/30/23 1209 Job Forwarder: Signed Normal [facility] Cardiology Visit Reporton Cardiology Visit Report [facility] [address] [place] [address] OFFICE VISIT Date of Service: 12/06/23 MR#: [id number] Acct: [id number] Name: NELLI RIVERS Rep #: [id number] : 1945 Provider: KELLI goodwin Age/Sex: 78/F Location: [facility] Status: Signed [facility] History of Present Illness Details: NELLI RIVERS, is a 78 F who presents to the office today for a cardiovascular outpatient follow- up. She has a history of coronary artery disease status post bypass surgery in 1996 with an VERNON to the LAD, SVG to RCA, and SVG to LCx. She had subsequent angioplasty and stenting to proximal and distal RCA in 2011. She also has a history of ischemic cardiomyopathy, status post biventricular ICD implantation, hyperlipidemia, and tobacco abuse. She denies chest, arm, jaw, or neck discomfort. She denies palpitations. She denies bilateral lower extremity edema. She denies claudication. She denies shortness of breath with activity, s hortness of breath at rest, orthopnea, or PND. She denies chronic cough. She denies significant, sudden weight gain. She states lightheadedness when seen in spiritism. She denies dizziness, near- syncope, or syncope. She denies blood in urine, blood in stool, or epistaxis. He denies fever with chills. She denies myalgia. She denies fatigue. Her exercise level has remained stable. Intake Vital Signs 10/28/23 10:53 12/06/23 11:02 12/06/23 11:24 Height 5 ft 2 in 5 ft 2 in Weight: 144 lb BMI 26.3 BP 88/51 L 91/58 L Blood Pressure Location Lt brachial Lt brachial Position Sitting Standing Respiration 16 Pulse 60 59 L Pulse Source NIBP NIBP Intake Visit Reasons: 6 m fu / JADA @ 11 Trapeze Performer Required: No Is patient in pain?: No Allergies No Known Allergies Allergy (Verified 12/06/23 11:13) Medications ???Medication ???Instructions ???Recorded ???Confirmed ???Type aspirin 81 mg chewable tablet 81 mg PO DAILY@0800 09/27/16 12/06/23 History nitroglycerin 0.4 mg sublingual 0.4 mg sublingual Q5-15M PRN chest 10/16/22 12/06/23 Rx tablet pain #25 tabs carvedilol 12.5 mg tablet (Coreg) 12.5 mg PO BID #180 tabs 03/13/23 12/06/23 Rx furosemide 40 mg tablet 40 mg PO Q OTHER DAY #90 tabs 04/29/23 12/06/23 Rx clopidogrel 75 mg tablet 75 mg PO DAILY #90 tabs 10/21/23 12/06/23 Rx potassium chloride 10 mEq 20 meq (2 x 10 mEq) PO DAILY #180 10/21/23 12/06/23 Rx capsule,extended release caps atorvastatin 40 mg tablet 40 mg PO QHS #90 tabs 12/06/23 12/06/23 Rx lisinopril 20 mg tablet 20 mg PO QDAY #180 tabs 12/06/23 12/06/23 Rx vitamin D3 125 mcg (5,000 1 cap PO DAILY 12/06/23 12/06/23 History unit)-vitamin K2 100 mcg capsule Ejection fraction %: 40 PFSH Medical History (Updated 12/06/23 @ 11:21 by Gemini Chavez) PAD (peripheral artery disease) Atrioventricular node dysfunction Sinus node dysfunction 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) Nicotine dependence Essential (primary) hypertension Ischemic cardiomyopathy Chronic systolic congestive heart failure Atrioventricular block Old myocardial infarction Atherosclerosis of coronary artery 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 Tobacco abuse Psoriasis Hypercholesteremia Syncope and collapse Hyperlipemia Hypokalemia History of syncope History of sinus bradycardia Surgical History History of electrophysiologic study (03/07/12) Biventricular ICD (implantable cardioverter-defibril lator) in place (08/04/20) History of coronary artery stent placement (03/06/12) H/O coronary artery bypass surgery (04/28/97) Saphenous vein graft to CFX saphenous vein graft to RCA H/O tubal ligation History of left heart catheterization (06/27/20) Family History Father CAD (coronary artery disease) Myocardial infarction Brother CAD (coronary artery disease) Myocardial infarction Mother Cancer Social History Smoking Status: Current every day smoker second hand exposure: Yes alcohol intake: current alcohol intake frequency: holidays/special occasions only substance use type: does not use caffeine: Yes Type: carbonated beverages Number of servings: 4 what type of physical activity do you participate in: none seatbelt use: always do you feel safe at home: Yes ROS Const Const: Positive for difficulty sleeping; Negative for fatigue, weakness, headache(s), frequent falls or excessive sweating Eyes Eyes: Negative for loss of peripheral vision, transient loss of vision, blurry vision, double vision or tunnel vision ENT ENT: Negative for headache(s), dizziness, Nosebleed/epistaxis or balance problems Cardio Chest Pain: No Palpitations: No Edema: (more content not included)... Normal [facility] Pacemaker Checkon 12-06-2023 Pacemaker Check [facility] [address] [place] [address] Pacemaker Check Date of Service: 12/06/231147 MR#: [id number] Acct: [id number] Name: NELLI RIVERS Rep #: [id number] : 1945 From: Loree Marsh Age/Sex: 78/F Location: [facility] Status: Signed Billing Codes ICD Device Billing: ICD Dev Prog Eval, Multi Assessment and Plan Assessment and Plan (1) Chronic systolic congestive heart failure: Status: Chronic (2) Ischemic cardiomyopathy: Status: Chronic (3) Biventricular ICD (implantable cardioverter-defibril lator) in place: Status: Chronic Comment: Implanted @ [facility] 03/07/2012; Gen change 08/04/[address] [facility] [place] per Dr. Juan Cosme. (4) Atrioventricular node dysfunction: Status: Chronic (5) Sinus node dysfunction: Status: Chronic 12/06/23 114 Date Loree Concepcion Signature: Date (if applicable) CC: Normal [facility] CREATININE FINGERSTICKon Creatinine [Mass/Vol] 1.2 mg/dL High 0.55-1.02 [facility] Comment on above: Performed By: #### L 500.2500, L100.0100 #### [facility] [address] [place], [address] GFR/1.73 sq M.predicted among non-blacks MDRD (S/P/Bld) [Vol rate/Area] 45.0000 mL/min/{1.73_m2} Low >60 [facility] Comment on above: Performed By: #### L 500.2500, L100.0100 #### [facility] [address] [place], [address] CTA Abd w/Runoff W/WO Contra sto 12-02-2023 CTA Abd w/Runoff W/WO Contrast [facility] [address] [place] [address] CTA Abd w/Runoff W/WO Contrast MR#: [id number] Acct: [id number] Name: NELLI RIVERS Rep #: [id number] : 1945 F 78 From: Flori chaudhry MD PCP: Dr. Jolanta Grant MD Status: REG CLI Study: CTA Abd w/Runoff W/WO Contrast Date of Exam: 0 12/02/23 Exam# [id number] Ordering Dr: Keith Jaime MD [id number] HISTORY: ATHEROSCLEROSIS WITH CLAUDICATION. TECHNIQUE: Axial CT angiography multi-detector data acquisition was obtained from the abdomen and pelvis to the bilateral lower extremities following intravenous administration of 100 mL Isovue-370. Axial images and MIP images were reconstructed from the axial data set. Post-processing of the angiographic images was performed, with multiplanar reformation and 3D reconstruction. Individualized dose optimization techniques were used for this CT. 1054 images. COMPARISON: 01/26/2022 Descriptors of Narrowing: None (0%) Mild (< 50%) Moderate (50-70%) Severe (70-90%) Subtotal/Total Occlusion (90-100%) Non-Evaluable (technically non-diagnostic) FINDINGS: LOWER CHEST: Cardiac pacemaker with midline sternotomy. Mild bibasilar atelectasis. BOWEL: Bowel including appendix nondilated. No focal pericolonic inflammation. PERITONEUM: No significant ascites. LIVER: No enhancing mass. GALLBLADDER: Small calcified gallstones. SPLEEN/PANCREAS: No focal lesion. KIDNEYS/ADRENAL GLANDS: Unremarkable. PELVIC ORGANS: Small right calcified uterine lesion again seen. OSSEOUS STRUCTURES: Degenerative change. ABDOMINAL AORTA: Atherosclerosis without aneurysm, dissection flap, or significant stenosis. CELIAC AXIS/SUPERIOR MESENTERIC ARTERY: Chronic mild stenosis proximally. INFERIOR MESENTERIC ARTERY: No demonstrated narrowing. RENAL ARTERIES: Chronic mild narrowing of the single right, main left, and accessory left renal arteries. RIGHT RIGHT ILIAC ARTERIES: Moderate stenosis with calcified plaque in the common iliac artery stent into the origins of the internal and external iliac arteries. LEFT ILIAC ARTERIES: Mild to moderate stenosis of the common iliac artery. Mild stenosis of the internal and external iliac arteries. RIGHT LOWER EXTREMITY-Surgical clips medially. Right common femoral artery: Calcified plaque with greater than 75% stenosis distally. Right profundus femoris: No demonstrated narrowing. Right superficial femoral: Mild-moderate stenoses proximally. Mild stenoses mid to distally. Right popliteal artery: At least moderate stenosis proximally. Right three-vessel runoff: Patent tibioperoneal trunk. Patent anterior tibial artery with flow past the ankle into the foot. Multiple segments of stenosis in the posterior tibial artery with occlusion or near occlusion mid to distally, as well as reconstitution of flow distally with flow followed to the ankle. Patent peroneal artery. LEFT LOWER EXTREMITY Left common femoral artery: Mild stenosis. Left profundus femoris: Mild calcified plaque proximally. Left superficial femoral: Approximately 60% stenoses. Left popliteal artery: Mild stenosis. Left tibioperoneal trunk: No demonstrated narrowing. Left three-vessel runoff: Patent tibioperoneal trunk. Mild calcified plaque in the proximal anterior tibial artery, patent with flow followed past the ankle. Patent peroneal artery. Severe stenosis and occlusions of the proximal to mid posterior tibial artery with reconstitution of flow distally at the ankle and flow followed into the foot. 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 Mild-moderate stenoses of the right superficial femoral and popliteal arteries. Moderate stenosis of the left superficial femoral artery. Chronic severe stenoses and occlusions of the bilateral posterior tibial arteries with reconstitution of flow distally. Cholelithiasis. Small calcified uterine leiomyoma. Electronically Signed: Flori Vela MD at 13:28 EDT Reading Location ID and State: [facility] / [place] Tel , Service support , CC: Dr. Keith Jaime MD; Dr. Jolanta Grant MD Job Forwarder: Signed Normal [facility] Basophil percentageOrdered B y: Hira Newman on 10-16-2022 Bilirubin [Mass/Vol] 0.60 mg/dL 0.20-1.00 [facility] Comment on above: For patients on eltr ombopag therapy, use of Dimension [place] TBIL is not recommended. Cholesterol [Mass/Vol] 190 mg/dL <200 [facility] Comment on above: <200 mg/dL Desirable 200-240 mg/dL Borderline >240 mg/dL High Risk Protein [Mass/Vol] 7.7 g/dL 6.4-8.2 [facility] Triglyceride [Mass/Vol] 224 mg/dL <199 [facility] Comment on above: The drugs N-Acetylcy steine and Metamizole may falsely depress this assay.Serum Triglycerides Reference Interval Normal <150 mg/dL Borderline high 150 - 199 mg/dL High 200 - 499 mg/dL Very High > or = 500 mg/dL Direct bilirubinOrdered By: Hira Newman on 10-16-2022 Bilirubin.direct [Mass/Vol] 0.07 mg/dL 0.00-0.30 [facility] Laboratory - Chemistry and C hemistry - challengeOrdered By: Hira Newman on 10-16-2022 ALP [Catalytic activity/Vol] 142 U/L 45-117 [facility] ALT [Catalytic activity/Vol] 19 U/L 13-56 [facility] Globulin (S) [Mass/Vol] 4.0 g/dL 2.2-4.2 [facility] Serum or plasma albumin patricia urement (mass/volume)Ordered By: Hira Newman on 10-16-2022 Albumin [Mass/Vol] 3.7 g/dL 3.2-5.0 [facility] Serum or plasma cholesterol in HDL measurement (mass/volume)Ordered By: Hira Newman on 10-16-2022 Cholesterol in HDL [Mass/Vol] 38 mg/dL >40 [facility] Comment on above: The drugs N-Acetylcy steine and Metamizole may falsely depress this assay. Reference Range HDL <40 mg/dL Low HDL Cholesterol HDL >or= 60 mg/dL High HDL Cholesterol Serum or plasma cholesterol in VLDL measurement (mass/volume)Ordered By: Hira Newman on 10-16-2022 Cholesterol in VLDL [Mass/Vol] 45 mg/dL 5-40 [facility] Serum or plasma low density lipoprotein (LDL) cholesterol measurement (mass/volume)Ordered By: Hira Newman on 10-16-2022 Cholesterol in LDL [Mass/Vol] 107 mg/dL 0-130 [facility] Thin prep Papanicolaou smear with manual screeningOrdered By: Hira Newman on 10-16-2022 Thin prep Papanicolaou smear with manual screening 26 U/L 15-37 [facility] Comment on above: Moderate Hemolysis, Result may be falsely increased. No Panel Informationon 01-23 Estimated GFR (MDRD) Amer 72 mL/min >60 [facility] Work Phone: Comment on above: GFR Calc Estimated GFR (MDRD) Non-Af Amer 60 mL/min >60 [facility] Work Phone: Comment on above: Non- GFR Calc Serum or plasma creatinine m easurement (mass/volume)on 01-23-2022 Creatinine [Mass/Vol] 0.96 mg/dL 0.55-1.02 [facility] Work Phone: Comment on above: The validity of the calculated GFR & GFRAA in patients over 70 years has not been determined. Clinical correlation is essential. Serum or plasma urea nitroge n measurement (mass/volume)on 01-23-2022 Urea nitrogen [Mass/Vol] 10 mg/dL 01-08 [facility] Work Phone: LIPID PANEL (OUTSIDE)on 04-24 Cholesterol [Mass/Vol] 148 mg/dL [facility] Cholesterol in HDL [Mass/Vol] 34 mg/dL [facility] Cholesterol in LDL [Mass/Vol] 80 mg/dL [facility] LDL:HDL Ratio [facility] Non-HDL Cholesterol [facility] TC:HDL Ratio [facility] Triglyceride [Mass/Vol] 170 mg/dL [facility] VLDL Cholesterol [facility] Lab Report: Lipid Profileon 02-13-2017 Cholesterol 127 mg/dL Invalid Interpretation Code 200 [employer] Work Phone: [phone] HDL Cholesterol 39 mg/dL Low [employer] Work Phone: [phone] LDL Cholesterol 64 mg/dL Invalid Interpretation Code 0-130 [employer] [employer] Work Phone: [phone] Triglyceride 122 mg/dL Invalid Interpretation Code [facility] Work Phone: [phone] very low density lipoproteins 24 mg/dL Invalid Interpretation Code 5-40 [employer] [employer] Work Phone: [phone] Lab Report: Liver Profileon 02-13-2017 Alanine aminotransferase (ALT) 20 U/L Invalid Interpretation Code 12-78 [employer] Work Phone: [phone] Albumin 3.7 g/dL Invalid Interpretation Code 3.4-5.0 [employer] Work Phone: [phone] Alkaline phosphatase (ALP) 121 U/L High 45-117 [employer] [employer] Work Phone: [phone] Aspartate aminotransferase (AST) 24 U/L Invalid Interpretation Code 15-37 [employer] [employer] Work Phone: [phone] Bilirubin (direct) 0.11 mg/dL Invalid Interpretation Code 0.00-0.30 [employer] Work Phone: [phone] Bilirubin (total) 0.50 mg/dL Invalid Interpretation Code 0.20-1.00 [employer] Work Phone: [phone] Globulin 3.6 g/dL High 2.3-3.5 [employer] Work Phone: [phone] Protein 7.3 g/dL Invalid Interpretation Code 6.4-8.2 [employer] Work Phone: [phone] Office Visiton 02-01-2017 Documentation of current medications (procedure) Done Invalid Interpretation Code [employer] Phone: [phone] Pacemaker: Pacemaker/ICD [facility] 02-01-2017 lead advisory Johnathan 3231 on Advisory for early battery depletion. 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 Pt refuses remote monitoring box at this time. Will follow every 3 mos and pt aware of vibratory notifier and will call if feels notifier. Invalid Interpretation Code [employer] Phone: [phone] Chart Maintenanceon 01-30-20 17 Left ventricular Ejection fraction 25 % Invalid Interpretation Code [employer] Phone: [phone] Office Visit: Bronchiectasis on 01-23-2017 Alcoholism counseling (procedure) no Invalid Interpretation Code [facility] Phone: Documentation of current medications (procedure) Done Invalid Interpretation Code [facility] Phone: Protein mass conc no [facility] Work Phone: [phone] Protein mass conc Done [facility] Phone: Tobacco smoking status [facility] Never Invalid Interpretation Code [facility] Phone: Tobacco smoking status [facility] Current every day smoker [facility] Work Phone: Tobacco use [facility] Current every day smoker Invalid Interpretation Code [facility] Phone: Office Visit: bronchitis/SOB on 11-01-2016 Alcoholism counseling (procedure) no Invalid Interpretation Code [facility] Work Phone: Documentation of current medications (procedure) Done Invalid Interpretation Code [facility] Work Phone: Fall risk assessment No Invalid Interpretation Code [facility] Work Phone: Tobacco smoking status [facility] Never Invalid Interpretation Code [facility] Work Phone: Tobacco use [facility] Former smoker Invalid Interpretation Code [facility] Work Phone: Office Visit: [facility] 06-28-19 17 Documentation of current medications (procedure) Done Invalid Interpretation Code [facility] Work Phone: Protein mass conc yes [facility] Work Phone: Smoking cessation education (procedure) yes Invalid Interpretation Code [facility] Work Phone: Tobacco use [facility] Current every day smoker Invalid Interpretation Code [facility] Phone: [facility] lead advisory Johnathan 3231 on Advisory for early battery depletion. 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 Pt refuses remote monitoring box at this time. Will follow every 3 mos and pt aware of vibratory notifier and will call if feels notifier. Invalid Interpretation Code [facility] Phone: Clinical Lists Update: Prelo safety sitter 07-13-2015 Left ventricular Ejection fraction 25 % Invalid Interpretation Code [facility] Phone: Lab Report: Basic Metabolic Profile (BMP)on 07-13-2015 Anion gap 8 mmol/L Invalid Interpretation Code 5-15 [facility] Work Phone: [phone] Anion gap molar conc 8 mmol/L 5-15 [facility] Work Phone: [phone] BUN/Creatinine Ratio 25.4 RATIO High 10-20 [facility] Phone: [phone] Calcium 9.1 mg/dL Invalid Interpretation Code 8.5-10.1 [facility] Work Phone: Chloride 109 mmol/L High 98-107 [facility] Work Phone: CO2 25.0 mmol/L Invalid Interpretation Code 21.0-32.0 [facility] Work Phone: CO2 ppres (BldV) 25.0 mmol/L 21.0-32.0 [facility] Work Phone: Creatinine 0.83 mg/dL Invalid Interpretation Code 0.55-1.20 [facility] Work Phone: eGFR (non-black) 73 mL/min/{1.73_m2} Invalid Interpretation Code >60 [facility] Work Phone: eGFR (non-black) 88 mL/min/{1.73_m2} Invalid Interpretation Code >60 [facility] Work Phone: EST GFR - AA 88 mL/min >60 [facility] Work Phone: Glucose 121 mg/dL High 70-110 [facility] Work Phone: Glucose mass conc 121 mg/dL High 70-110 [facility] Work Phone: [phone] Potassium 4.4 mmol/L Invalid Interpretation Code 3.5-5.1 [facility] Work Phone: Sodium 142 mmol/L Invalid Interpretation Code 136-145 [facility] Work Phone: [phone] Urea nitrogen 21 mg/dL High 7-18 [facility] Work Phone: Lab Report: CBC-Complete Blo od Cnt No Diffon 07-13-2015 Erythrocyte distribution width Ratio (RBC) 12.7 % 11.6-14.6 [facility] Work Phone: [phone] Erythrocyte distribution width Ratio (RBC) 42.6 fL 35.1-43.9 [facility] Work Phone: [phone] Erythrocytes (RBC) 4.44 10*6/uL Invalid Interpretation Code 4.2-5.4 [facility] Work Phone: [phone] Hematocrit (HCT) 41.3 % Invalid Interpretation Code 37-47 [facility] Work Phone: [phone] Hematocrit Volume Fraction (Bld) 41.3 % 37-47 [facility] Work Phone: [phone] Hemoglobin (HGB) 13.6 g/dL Invalid Interpretation Code 12.0-15.0 [facility] Work Phone: [phone] MCH 30.6 pg Invalid Interpretation Code 27.0-32.0 [facility] Work Phone: [phone] MCH Entitic mass (RBC) 30.6 pg 27.0-32.0 [facility] Work Phone: [phone] MCHC 32.9 G/GL Invalid Interpretation Code 32-36 [facility] Work Phone: [phone] MCHC mass conc (RBC) 32.9 G/GL 32-36 [facility] Work Phone: [phone] MCV 93.0 fL Invalid Interpretation Code 81-99 [facility] Work Phone: [phone] MCV Entitic volume (RBC) 93.0 fL 81-99 [facility] Work Phone: [phone] Platelet mean volume Entitic volume (Bld) 9.9 fL 6.2-12.0 [facility] Work Phone: [phone] Platelets 249 10*3/mm3 Invalid Interpretation Code 150-450 [facility] Work Phone: [phone] Platelets #/vol (Bld) 249 10*3/mm3 150-450 [facility] Work Phone: [phone] PMV by Yossi 9.9 fL Invalid Interpretation Code 6.2-12.0 [facility] Work Phone: [phone] RBC #/vol (Bld) 4.44 10*6/uL 4.2-5.4 [facility] Work Phone: [phone] RDW-CA 12.7 % Invalid Interpretation Code 11.6-14.6 [facility] Work Phone: [phone] red blood cell distribution width, size density 42.6 fL Invalid Interpretation Code 35.1-43.9 [facility] Work Phone: [phone] WBC #/vol (Bld) 7.7 10*3/uL 4.4-11.0 [facility] Work Phone: [phone] WBC (Leukocytes) 7.7 10*3/uL Invalid Interpretation Code 4.4-11.0 [facility] Work Phone: [phone] Lab Report: Lipid Profileon 07-13-2015 Cholesterol 154 mg/dL Invalid Interpretation Code 200 [facility] Work Phone: [phone] HDL Cholesterol 44 mg/dL Invalid Interpretation Code [facility] Work Phone: [phone] LDL Cholesterol 81 mg/dL Invalid Interpretation Code 0-130 [facility] Work Phone: [phone] Triglyceride 143 mg/dL Invalid Interpretation Code [facility] Work Phone: [phone] very low density lipoproteins 29 mg/dL Invalid Interpretation Code 5-40 [facility] Work Phone: [phone] Lab Report: Liver Profileon 07-13-2015 Alanine aminotransferase (ALT) 17 U/L Invalid Interpretation Code 12-78 [facility] Work Phone: [phone] Albumin 3.9 g/dL Invalid Interpretation Code 3.4-5.0 [facility] Work Phone: [phone] Alkaline phosphatase (ALP) 134 U/L Invalid Interpretation Code 50-136 [facility] Work Phone: [phone] ALP enzyme act/vol (Bld) 134 U/L 50-136 [facility] Work Phone: [phone] Aspartate aminotransferase (AST) 19 U/L Invalid Interpretation Code 15-37 [facility] Work Phone: [phone] Bilirubin (direct) 0.13 mg/dL Invalid Interpretation Code 0.00-0.30 [facility] Phone: [phone] Bilirubin (total) 0.70 mg/dL Invalid Interpretation Code 0.20-1.00 [facility] Phone: [phone] Globulin 3.9 g/dL High 2.3-3.5 [facility] Phone: [phone] Globulin mass conc (S) 3.9 g/dL High 2.3-3.5 [facility] Phone: [phone] Protein 7.8 g/dL Invalid Interpretation Code 6.4-8.2 [facility] Phone: [phone] Replaced Document: Kelly Coates 07-06-2015 EKG QRS axis -25 deg [facility] Phone: [phone] electrocardiogram interpretation Sinus Rhythm -First degree A-V block Sergio = 222Low voltage in precordial leads. -Old inferior infarct -Poor R-wave progression -may be secondary to pulmonary disease consider old anterior infarct. - Nonspecific T-abnormality. ABNORMAL Invalid Interpretation Code [facility] Phone: [phone] GE use only - for [employer] import when terms are not otherwise specified 420 ms Invalid Interpretation Code [facility] Phone: [phone] Interpretation Sinus Rhythm -First degree A-V block Sergio = 222Low voltage in precordial leads. -Old inferior infarct -Poor R-wave progression -may be secondary to pulmonary disease consider old anterior infarct. - Nonspecific T-abnormality. ABNORMAL [facility] Phone: [phone] P O'Brien 27 deg [facility] Phone: [phone] P wave axis, electrocardiogram 27 deg Invalid Interpretation Code [facility] Phone: [phone] VT Interval 222 ms [facility] Phone: [phone] VT interval, electrocardiogram 222 ms Invalid Interpretation Code [facility] Phone: [phone] Pulse (Heart Rate) 60 /min Invalid Interpretation Code [facility] Phone: [phone] QRS axis, electrocardiogram -25 deg Invalid Interpretation Code [facility] Work Phone: [phone] QRS Duration 96 ms [facility] Work Phone: [phone] QRS duration, electrocardiogram 96 ms Invalid Interpretation Code [facility] Work Phone: [phone] QT Interval new path ms [facility] Work Phone: [phone] QT interval, electrocardiogram new path ms Invalid Interpretation Code [facility] Work Phone: [phone] QTc Lopez 420 ms [facility] Work Phone: [phone] T O'Brien 118 deg [facility] Work Phone: T wave axis, electrocardiogram 118 deg Invalid Interpretation Code [facility] Work Phone: Lab Report: Magnesiumon 05-24 Magnesium 1.9 mg/dL Invalid Interpretation Code 1.8-2.4 [facility] Phone: Office Visit: [facility] 06-04-20 14 cardiac risk group C Invalid Interpretation Code [facility] Phone: [phone] General cardiovascular disease 10Y risk [#] [place]D'Agostino N/A Invalid Interpretation Code [facility] Phone: [phone] Tobacco smoking status NHIS Never Invalid Interpretation Code [facility] Phone: Lab Report: T4on 09-30-2012 Thyroxine (T4) 9.9 ug/dL Normal 4.8-13.9 [facility] Work Phone: [phone] Lab Report: TSHon 09-30-2012 Thyroid stimulating hormone (TSH) 1.72 u[iU]/mL Normal 0.358-3.74 [facility] Work Phone: Office Visiton 03-27-2012 Alcoholism counseling (procedure) no Invalid Interpretation Code [facility] Phone: [phone] Replaced Document: [employer] E CG Observationson 03-27-2012 Pulse (Heart Rate) 407 ms Invalid Interpretation Code [facility] Phone: Vital Signs Date Time Vital Sign Value Performing Clinician Harleen jadey 11-20-2024 16:52-0400 Body temperature 97.1 [degF] Dr. Jolanta Grant MD Work Phone: [facility] 11-20-2024 16:52-0400 Diastolic blood pressure 52 mm[Hg] Dr. Jolanta Grant MD Work Phone: [facility] 11-20-2024 16:52-0400 Heart rate 60 /min Dr. Jolanta Grant MD Work Phone: [facility] 11-20-2024 16:52-0400 Respiratory rate 15 /min Dr. Jolanta Grant MD Work Phone: [facility] 11-20-2024 16:52-0400 SaO2% (BldA) [Mass fraction] 98 % Dr. Jolanta Grant MD Work Phone: [facility] 11-20-2024 16:52-0400 Systolic blood pressure 148 mm[Hg] Dr. Jolanta Grant MD Work Phone: [facility] 11-20-2024 05:48-0400 Body mass index (BMI) [Ratio] 25.8 kg/m2 Dr. Jolanta Grant MD Work Phone: [facility] 11-20-2024 05:48-0400 Body weight 64.[address] Jolanta Grant MD Work Phone: [facility] 11-18-2024 09:26-0400 Body height 157.[address] Jolanta Grant MD Work Phone: [facility] 11-12-2024 16:00-0400 Body temperature 98 [degF] Dr. Jolanta Grant MD Work Phone: [facility] 11-12-2024 16:00-0400 Diastolic blood pressure 70 mm[Hg] Dr. Jolanta Grant MD Work Phone: [facility] 11-12-2024 16:00-0400 Heart rate 81 /min Dr. Jolanta Grant MD Work Phone: [facility] 11-12-2024 16:00-0400 Respiratory rate 16 /min Dr. Jolanta Grant MD Work Phone: [facility] 11-12-2024 16:00-0400 SaO2% (BldA) [Mass fraction] 95 % Dr. Jolanta Grant MD Work Phone: [facility] 11-12-2024 16:00-0400 Systolic blood pressure 130 mm[Hg] Dr. Jolanta Grant MD Work Phone: [facility] 11-12-2024 15:12-0400 Body mass index (BMI) [Ratio] 24.8 kg/m2 Dr. Jolanta Grant MD Work Phone: [facility] 11-12-2024 15:12-0400 Body weight 61.[address] Jolanta Grant MD Work Phone: [facility] 10-22-2024 14:05-0400 Body temperature 97.7 [degF] Dr. Jolanta Grant MD Work Phone: [facility] 10-22-2024 14:05-0400 Body weight 63.[address] Jolanta Grant MD Work Phone: [facility] 10-22-2024 14:05-0400 Diastolic blood pressure 55 mm[Hg] Dr. Jolanta Grant MD Work Phone: [facility] 10-22-2024 14:05-0400 Heart rate 60 /min Dr. Jolanta Grant MD Work Phone: [facility] 10-22-2024 14:05-0400 Respiratory rate 16 /min Dr. Jolanta Grant MD Work Phone: [facility] 10-22-2024 14:05-0400 SaO2% (BldA) [Mass fraction] 98 % Dr. Jolanta Grant MD Work Phone: [facility] 10-22-2024 14:05-0400 Systolic blood pressure 96 mm[Hg] Dr. Jolanta Grant MD Work Phone: [facility] 10-18-2024 17:14-0400 Body temperature 98 [degF] Dr. Jolanta Grant MD Work Phone: [facility] 10-18-2024 17:14-0400 Diastolic blood pressure 88 mm[Hg] Dr. Jolanta Grant MD Work Phone: [facility] 10-18-2024 17:14-0400 Heart rate 58 /min Dr. Jolanta Grant MD Work Phone: [facility] 10-18-2024 17:14-0400 Respiratory rate 19 /min Dr. Jolanta Grant MD Work Phone: [facility] 10-18-2024 17:14-0400 SaO2% (BldA) [Mass fraction] 98 % Dr. Jolanta Grnat MD Work Phone: [facility] 10-18-2024 17:14-0400 Systolic blood pressure 145 mm[Hg] Dr. Jolanta Grant MD Work Phone: [facility] 10-18-2024 11:30-0400 Body height 157.[address] Jolanta Grant MD Work Phone: [facility] 10-18-2024 11:30-0400 Body mass index (BMI) [Ratio] 25.9 kg/m2 Dr. Jolanta Grant MD Work Phone: [facility] 10-18-2024 11:30-0400 Body weight 64.[address] Jolanta Grant MD Work Phone: [facility] 10-16-2022 10:33-0400 Body height 157.[address] Jolanta Grant Work Phone: [facility] 10-16-2022 10:33-0400 Body mass index (BMI) [Ratio] 26.6 kg/m2 Dr. Jolanta Grant Work Phone: [facility] 10-16-2022 10:33-0400 Body weight 66.[address] Jolanta Grant Work Phone: [facility] 10-16-2022 10:33-0400 Diastolic blood pressure 59 mm[Hg] Dr. Jolanta Grant Work Phone: [facility] 10-16-2022 10:33-0400 Heart rate 60 /min Dr. Jolanta Grant Work Phone: [facility] 10-16-2022 10:33-0400 Respiratory rate 16 /min Dr. Jolanta Grant Work Phone: [facility] 10-16-2022 10:33-0400 Systolic blood pressure 100 mm[Hg] Dr. Jolanta Grant Work Phone: [facility] 09-12-2021 12:58-0400 Body height 157.[address] Jolanta Grant Work Phone: [facility] Work Phone: 09-12-2021 12:58-0400 Body weight 64.[address] Jolanta Grant Work Phone: [facility] Work Phone: 09-12-2021 12:58-0400 Diastolic blood pressure 66 mm[Hg] Dr. Jolanta Grant Work Phone: [facility] Work Phone: 09-12-2021 12:58-0400 Heart rate 60 /min Dr. Jolanta Grant Work Phone: [facility] Work Phone: 09-12-2021 12:58-0400 Respiratory rate 16 /min Dr. Jolanta Grant Work Phone: [facility] Work Phone: 09-12-2021 12:58-0400 Systolic blood pressure 117 mm[Hg] Dr. Jolanta Grant Work Phone: [facility] Work Phone: 09-12-2021 12:58-0400 Body height 157.[address] Jolanta Grant Work Phone: [facility] Work Phone: 09-12-2021 12:58-0400 Body weight 64.[address] Jolanta Grant Work Phone: [facility] Work Phone: 09-12-2021 12:58-0400 Diastolic blood pressure 66 mm[Hg] Dr. Jolanta Grant Work Phone: [facility] Work Phone: 09-12-2021 12:58-0400 Heart rate 60 /min Dr. Jolanta Grant Work Phone: [facility] Work Phone: 09-12-2021 12:58-0400 Respiratory rate 16 /min Dr. Jolanta Grant Work Phone: [facility] Work Phone: 09-12-2021 12:58-0400 Systolic blood pressure 117 mm[Hg] Dr. Jolanta Grant Work Phone: [facility] Work Phone: 12-13-2020 15:17-0400 Body mass index (BMI) [Ratio] 26.2 kg/m2 Dr. Jolanta Grant Work Phone: [facility] Work Phone: 12-13-2020 14:23-0400 Body mass index (BMI) [Ratio] 27.6 kg/m2 Dr. Jolanta Grant Work Phone: [facility] Work Phone: 02-01-2017 12:25-0400 BMI (Body Mass Index) 25.15 kg/m2 Jada Marsh RN [facility] Work Phone: 02-01-2017 12:25-0400 BP Diastolic 60 mm[Hg] Jada Marsh RN [facility] Work Phone: 02-01-2017 12:25-0400 BP Systolic 112 mm[Hg] Jada Marsh RN [facility] [employer] Work Phone: 02-01-2017 12:25-0400 Height 160.02 cm Jada Marsh RN [facility] [employer] Work Phone: 02-01-2017 12:25-0400 Pulse (Heart Rate) 60 /min Jada Marsh RN [employer] [employer] Work Phone: 02-01-2017 12:25-0400 Respiratory Rate 18 /min Jada Marsh RN [employer] Work Phone: 02-01-2017 12:25-0400 Weight 64.41 kg Jada Marsh RN [employer] Work Phone: 01-23-2017 06:04-0400 BMI (Body Mass Index) 25.68 kg/m2 Jessica Jefersonho [employer] [facility] Work Phone: 01-23-2017 06:04-0400 Body Temperature 98.8 [degF] Jessica Yensho [employer] [facility] Work Phone: 01-23-2017 06:04-0400 BP Diastolic 76 mm[Hg] Jessica Yensho [employer] [facility] Work Phone: 01-23-2017 06:04-0400 BP Systolic 117 mm[Hg] Jessica Yensho [employer] [facility] Work Phone: 01-23-2017 06:04-0400 Height 160.02 cm Jessica Paconsho [employer] [facility] Work Phone: 01-23-2017 06:04-0400 Pulse (Heart Rate) 67 /min Jessica Paconsho [employer] [facility] Work Phone: 01-23-2017 06:04-0400 Respiratory Rate 18 /min Jessica Yensho [employer] [facility] Work Phone: 01-23-2017 06:04-0400 Weight 65.77 kg Jessica Martinez LPN [facility] Work Phone: 11-01-2016 10:41-0400 BMI (Body Mass Index) 26.04 kg/m2 Karolyn Garza [employer] [facility] Work Phone: 11-01-2016 10:41-0400 Body Temperature 97.2 [degF] Karolynadriana Garza [employer] [facility] Work Phone: 11-01-2016 10:41-0400 BP Diastolic 73 mm[Hg] Karolyn Garza [employer] [facility] Work Phone: 11-01-2016 10:41-0400 BP Systolic 164 mm[Hg] Karolyn Greg [employer] [facility] Work Phone: 11-01-2016 10:41-0400 Height 160.02 cm Karolynadriana Garza [employer] [facility] Work Phone: 11-01-2016 10:41-0400 Pulse (Heart Rate) 61 /min Karolyn Garza LPN [facility] Work Phone: 11-01-2016 10:41-0400 Pulse Oximetry 97 % Karolyn Garza LPN [facility] Work Phone: 11-01-2016 10:41-0400 Respiratory Rate 18 /min Karolynadriana Garza [employer] [facility] Work Phone: 11-01-2016 10:41-0400 Weight 66.68 kg Karolynadriana Garza [employer] [facility] Work Phone: 06-28-2016 09:57-0500 BMI (Body Mass Index) 24.23 kg/m2 Karolyn Garza [employer] [facility] Work Phone: 06-28-2016 09:57-0500 BP Diastolic 70 mm[Hg] Karolyn Garza [employer] [facility] Phone: 06-28-2016 09:57-0500 BP Systolic 130 mm[Hg] Karolyn Garza [employer] [facility] Work Phone: 06-28-2016 09:57-0500 BSA (Body Surface Area) 1.65 m2 Karolynadriana Garza [employer] [facility] Work Phone: 06-28-2016 09:57-0500 Pulse (Heart Rate) 72 /min Karolyn Garza [employer] [facility] Phone: 06-28-2016 09:57-0500 Respiratory Rate 18 /min Karolyn Garza [employer] [facility] Phone: 06-28-2016 09:57-0500 Weight 62.05 kg Karolyn Garza [employer] [facility] Phone: 07-06-2015 09:43-0500 Heart rate 60 /min Jessica Yensho [employer] [facility] Phone: 12-03-2013 13:40-0400 Height 160.02 cm Karolyn Garza [employer] [facility] Phone: 03-27-2012 15:37-0400 Heart rate 407 ms Jessica Yensho [employer] [facility] Phone: Encounters Encounter Date Encounter Type Care Provider Facility Start: 11-20-2024 ambulatory [facility] Start: 11-20-2024 Evaluation and management of inpatient [facility] Facility:[facility] Start: 11-18-2024 Non-patient / Non-visit Tiana LOCKWOOD -[facility] Start: 11-17-2024 ambulatory Crow Dc Facility:[facility] Start: 11-17-2024 End: 11-20-2024 Evaluation and management of inpatient Dr. Crow Dc MD -Intensive Care Unit Work Phone: Start: 11-17-2024 Non-patient / Non-visit Dr. Crow chopra MD -[facility] Start: 11-17-2024 ambulatory [facility] Start: 11-12-2024 End: 11-12-2024 Emergency department patient visit Dr. Darryl Quinones DO -Emergency Department Work Phone: Start: 11-04-2024 End: 11-04-2024 Telephone encounter Jolanta Grant MD Work Phone: [facility] Comment on above: Appointment Start: 11-04-2024 End: 11-04-2024 Non-patient / Non-visit Dr. Crow Dc MD -[facility] Start: 11-04-2024 End: 11-04-[address] Jolanta Grant MD Work Phone: [facility] Work Phone: Start: 11-04-2024 End: 11-04-[address] Crow Dc MD -Cardiovascular Services Work Phone: Start: 11-04-2024 End: 11-04-2024 ambulatory [facility] Facility:[facility] Start: 10-22-2024 End: 10-22-[address] Crow Dc MD -[facility] Work Phone: Start: 10-22-2024 End: 10-22-2024 ambulatory [facility] Facility[facility] Start: 10-20-2024 End: 10-20-2024 ambulatory Isra Rizvi RN Health Unit Supervisor Management Comment on above: ACM JOVITA RN ( Chart review per payor request.) Start: 10-18-2024 End: 10-18-2024 Emergency department patient visit Dr. Dina Camp DO -Emergency Department Work Phone: Start: 07-02-2024 End: 07-03-2024 Patient encounter procedure [facility] Provider [facility] Start: 07-02-2024 End: 07-02-2024 ambulatory Jolanta Grant Facility:[facility] Start: 12-30-2023 ambulatory Jolanta Grant [facility]: [facility] Start: 12-30-2023 End: 12-30-2023 ambulatory Yuniel Tsai Facility:[facility] Start: 12-06-2023 Patient encounter procedure [facility] Provider [facility] Start: 12-06-2023 End: 12-06-2023 ambulatory Jolanta Grant Facility:[facility] Start: 12-02-2023 End: 12-02-2023 ambulatory Jolanta Grant Facility:[facility] Start: 07-08-2023 Telephone encounter Jolanta Grant MD Work Phone: [facility] Care Comment on above: Due for annual welln ess visit Start: 04-29-2023 Patient encounter procedure [facility] Provider [facility] Start: 03-05-2023 End: 03-05-2023 ambulatory [facility] Work Phone: Start: 03-05-2023 End: 03-05-2023 Patient encounter procedure [facility]-Cardiovascula r Services Work Phone: Start: 10-16-2022 End: 10-16-[address] Jolanta Grant Work Phone: [facility] Work Phone: Start: 10-16-2022 End: 10-16-[address] Jolanta Grant Work Phone: [facility]-Laboratory Start: 10-16-2022 End: 10-16-[address] Jolanta Grant Work Phone: [facility] Start: 07-06-2022 Chart abstracting Unk (Historical) [facility] Supervisor Start: 01-26-2022 End: 01-26-2022 Patient encounter procedure [facility]-Cat Scan, [facility] [place] Start: 01-23-2022 End: 01-23-2022 Patient encounter procedure [facility]-Laboratory Start: 12-26-2021 End: 12-26-[address] Jolanta Grant Work Phone: [facility] Start: 09-29-2021 End: 09-29-[address] Jolanta Grant Work Phone: [facility] Start: 09-12-2021 End: 09-12-[address] Jolanta Grant Work Phone: [facility] Start: 06-12-2021 End: 06-12-[address] Jolanta Grant Work Phone: [facility] Procedures Date Procedure Procedure Detail Performing Clinician Start: 11-20-[address] Jolanta Grant MD Work Phone: Start: 11-18-2024 Serum inorganic phos phate measurement Dr. Jolanta Grant MD Work Phone: Start: 11-17-2024 Coagulation time, activated Dr. Jolanta Grant MD Work Phone: Start: 11-17-2024 Femoral-femoral cros sover arteriogram Dr. Jolanta Grant MD Work Phone: Start: 11-17-2024 Fluoroscopic guidance Adrien Grant MD Work Phone: Start: 10-18-2024 Urnls dip stick/tabl et reagent auto microscopy Dr. Jolanta Grant MD Work Phone: Start: 10-18-[address] Tevin Grant MD Work Phone: Start: 10-18-2024 CT of abdominal aort a with contrast Dr. Jolanta Grant MD Work Phone: Start: 10-18-[address] Jolanta Grant MD Work Phone: Start: 01-26-2022 CT of abdominal aort a with contrast Start: 05-10-2020 Lipid panel Jolanta Grant MD Work Phone: Start: 02-01-2017 End: 02-13-2017 *Hepatic Function Panel Michelle Wolf Start: 02-01-2017 End: 02-01-2017 Follow Up Appt 6 months Michelle Wolf Start: 02-01-2017 End: 02-01-2017 Icd device progr isabela cunha MD Start: 02-01-2017 End: 02-13-2017 Lipid panel [AGGREGATE] Michelle Wolf Start: 02-01-2017 End: 02-01-2017 MMM Yuniel Tsai MD Start: 06-28-2016 End: 06-28-2016 [employer] Savanah Jade PA-C Work Phone: Start: 06-28-2016 End: 06-28-2016 Follow Up Appt 6 months Savanah Jade PA-C Work Phone: Start: 06-28-2016 End: 06-28-2016 Icd device progr isabela cunha MD Start: 03-20-2016 End: 06-13-2016 Follow Up Appt 3 months Michelle Wolf Start: 03-20-2016 End: 03-20-2016 Icd device progr isabela cunha MD Start: 03-20-2016 End: 06-13-2016 Pacer Clinic Yuniel Tsai MD Start: 01-11-2016 End: 06-28-2016 *Hepatic Function Panel Michelle Wolf Start: 01-11-2016 End: 06-28-2016 Lipid panel [AGGREGATE] Michelle Wolf Start: 01-06-2016 End: 01-06-2016 Nuclear stress test -exercise Yuniel Tsai MD Start: 12-30-2015 End: 12-30-2015 Follow Up Appt 6 months Michelle Wolf Start: 12-30-2015 End: 12-30-2015 MMM Yuniel Tsai MD Start: 12-19-2015 End: 06-13-2016 Follow Up Appt 3 months Savanah Jade PA-C Work Phone: Start: 12-19-2015 End: 12-19-2015 Icd device progr guerline, clayt Savanah Jade PA-C Work Phone: Start: 12-19-2015 End: 06-13-2016 Pacer Clinic Savanah Jade PA-C Work Phone: Start: 09-07-2015 End: 06-13-2016 Follow Up Appt 3 months Michelle Wlof Start: 09-07-2015 End: 09-07-2015 Icd device progr isabela cunha MD Start: 09-07-2015 End: 06-13-2016 Pacer Clinic Yuniel Tsai MD Start: 07-13-2015 End: 07-13-2015 *Hepatic Function Panel Michelle Wolf Start: 07-13-2015 End: 07-13-2015 Lipid panel [AGGREGATE] Michelle Wolf Start: 07-06-2015 End: 07-13-2015 *BMP Savanah Jade PA-C Work Phone: Start: 07-06-2015 End: 07-13-2015 CBC W Auto Differential panel - Blood Savanah Jade PA-C Work Phone: Start: 07-06-2015 End: 07-06-2015 [employer] Savanah Jade PA-C Work Phone: Start: 07-06-2015 End: 07-13-2015 Echocardiography Savanah Jade PA-C Work Phone: Start: 07-06-2015 End: 07-06-2015 Follow Up Appt 6 months Savanah Jade PA-C Work Phone: Start: 07-06-2015 End: 07-06-2015 Follow Up Appt Other Savanah Jade PA-C Work Phone: Start: 06-01-2015 End: 06-29-2015 Follow Up Appt 3 months Savanah Jade PA-C Work Phone: Start: 06-01-2015 End: 06-01-2015 Icd device progr evtae, mult Savanah Jade PA-C Work Phone: Start: 06-01-2015 End: 06-29-2015 [facility] Savanah Jade PA-C Work Phone: Start: 03-02-2015 End: 06-29-2015 Follow Up Appt 3 months Savanah Jade PA-C Work Phone: Start: 03-02-2015 End: 03-02-2015 Icd device progr eval, mult Savanah Jade PA-C Work Phone: Start: 03-02-2015 End: 06-29-2015 [facility] Savanah Jade PA-C Work Phone: Start: 12-30-2014 End: 12-31-2014 Documentation of current medications Yuniel Tsai MD Start: 12-30-2014 End: 12-30-2014 Follow Up Appt 6 months Michelle Wolf Start: 12-30-2014 End: 12-30-2014 [facility] Yuniel Tsai MD Start: 11-24-2014 End: 12-30-2014 Follow Up Appt 3 months Michelle Wolf Start: 11-24-2014 End: 11-24-2014 Icd device progr isabela cunha MD Start: 11-24-2014 End: 12-30-2014 [facility] Yuniel Tsai MD Start: 10-19-2014 End: 11-16-2014 *Hepatic Function Panel Michelle Wolf Start: 10-19-2014 End: 11-16-2014 Lipid panel [AGGREGATE] Michelle Wolf Start: 08-17-2014 End: 12-30-2014 Follow Up Appt 3 months Savanah Jade PA-C Work Phone: Start: 08-17-2014 End: 08-17-2014 Icd device progr isabela cunha PA-C Work Phone: Start: 08-17-2014 End: 12-30-2014 [facility] Savanah Jade PA-C Work Phone: Start: 06-04-2014 End: 06-04-2014 [facility] Savanah Jade PA-C Work Phone: Start: 06-04-2014 End: 06-04-2014 Follow Up Appt 6 months Savanah Jade PA-C Work Phone: Start: 06-04-2014 End: 06-04-2014 Magnesium Savanah Jade PA-C Work Phone: Start: 05-12-2014 End: 05-19-2014 Follow Up Appt 3 months Michelle Wolf Start: 05-12-2014 End: 05-12-2014 Icd device progr isabela cunha MD Start: 05-12-2014 End: 05-19-2014 [facility] Yuniel Tsai MD Start: 04-19-2014 End: 04-20-2014 *BMP Yuniel Tsai MD Start: 04-19-2014 End: 04-20-2014 *Hepatic Function Panel Michelle Wolf Start: 04-19-2014 End: 04-20-2014 Lipid panel [AGGREGATE] Michelle Wolf Start: 02-04-2014 End: 05-19-2014 Follow Up Appt 3 months Savanah Jade PA-C Work Phone: Start: 02-04-2014 End: 02-04-2014 Icd device progr eval, clayt Savanah Jade PA-C Work Phone: Start: 02-04-2014 End: 05-19-2014 [facility] Savanah Jade PA-C Work Phone: Start: 12-03-2013 End: 12-03-2013 Follow Up Appt 6 months Michelle Wofl Start: 12-03-2013 End: 12-03-2013 [facility] Yuniel Tsai MD Start: 11-04-2013 End: 04-20-2014 Follow Up Appt 3 months Micehlle Wolf Start: 11-04-2013 End: 11-04-2013 Icd device progr guerline, clayt Yuniel Tsai MD Start: 11-04-2013 End: 04-20-2014 [facility] Yuniel Tsai MD Start: 08-05-2013 End: 04-20-2014 Follow Up Appt 3 months Michelle Wolf Start: 08-05-2013 End: 08-05-2013 Icd device progr eval, dual Yuniel Tsai MD Start: 08-05-2013 End: 04-20-2014 [facility] Yuniel Tsai MD Start: 06-01-2013 End: 06-10-2013 *BMP Savanah Jade PA-C Work Phone: Start: 06-01-2013 End: 06-01-2013 [employer] Savanah Jade PA-C Work Phone: Start: 06-01-2013 End: 06-01-2013 Electrocardiogram, complete Savanah Jade PA-C Work Phone: Start: 06-01-2013 End: 06-01-2013 eRx Transmitted during this visit (Medicare only) Savanah Jade PA-C Work Phone: Start: 06-01-2013 End: 06-01-2013 Follow Up Appt 6 months Savanah Jade PA-C Work Phone: Start: 05-04-2013 End: 06-01-2013 Follow Up Appt 3 months Michelle Wolf Start: 05-04-2013 End: 05-04-2013 Icd device progr isabela cunha MD Start: 05-04-2013 End: 06-01-2013 [facility] Yuniel Tsai MD Start: 01-30-2013 End: 06-01-2013 Follow Up Appt 3 months Michelle Wolf Start: 01-30-2013 End: 06-01-2013 Icd device progr isabela cunha MD Start: 01-30-2013 End: 06-01-2013 [facility] Yuniel Tsai MD Start: 12-02-2012 End: 12-02-2012 Follow Up Appt 6 months Michelle Wolf Start: 12-02-2012 End: 12-02-2012 MMM Yuniel Tsai MD Start: 09-29-2012 End: 06-01-2013 Follow Up Appt 3 months Michelle Wolf Start: 09-29-2012 End: 09-29-2012 Icd device progr eval, clayt Yuniel Tsai MD Start: 09-29-2012 Implantation of auto matic cardiac defibrillator IMPLANTATION OF DEFIBRILLATOR, HX OF Jessica Martinez LPN Start: 09-29-2012 End: 06-01-2013 [facility] Yuniel Tsai MD Start: 09-24-2012 End: 10-02-2012 *BMP Miles Del Castillo MD Start: 09-24-2012 End: 10-02-2012 *CBC with Differential Miles Del Castillo MD Start: 09-24-2012 End: 10-02-2012 *Hepatic Function Panel Miles Del Castillo MD Start: 09-24-2012 End: 10-02-2012 Lipid panel [AGGREGATE] Miles Del Castillo MD Start: 09-24-2012 End: 10-02-2012 Magnesium Miles Del Castillo MD Start: 09-24-2012 End: 10-02-2012 Thyrotropin [Units/volume] in Serum or Plasma Miles Del Castillo MD Start: 09-24-2012 End: 10-02-2012 Thyroxine (T4) Miles Del Castillo MD Start: 09-15-2012 End: 09-15-2012 Follow Up Appt 3 months Miles Del Castillo MD Start: 09-10-2012 End: 09-15-2012 *Hepatic Function Panel Miles Del Castillo MD Start: 09-10-2012 End: 09-15-2012 Lipid 1996 panel - Serum or Plasma Miles Del Castillo MD Start: 09-10-2012 End: 09-15-2012 Thyroxine (T4) Miles Del Castillo MD Start: 06-12-2012 End: 06-12-2012 Follow Up Appt 3 months Miles Del Castillo MD Start: 04-24-2012 End: 05-26-2012 *BMP Miles Del Castillo MD Start: 03-27-2012 End: 05-26-2012 *Hepatic Function Panel Miles Del Castillo MD Start: 03-27-2012 End: 04-10-2012 Electrocardiogram, complete Miles Del Castillo MD Start: 03-27-2012 End: 03-27-2012 eRx Transmitted during this visit (Medicare only) Miles Del Castillo MD Start: 03-27-2012 End: 03-27-2012 Follow Up Appt 2 months Miles Del Castillo MD Start: 03-27-2012 End: 03-27-2012 Follow Up Appt Other Miles Del Castillo MD Start: 03-27-2012 End: 05-26-2012 Lipid panel [AGGREGATE] Miles Del Castillo MD Start: 03-06-2012 History of placement of stent for coronary artery disease History of coronary artery stent placement Dr. Jolanta Grant Work Phone: Comment on above: [id number] RCA w / 2.25 x 8 mm Promus Element Stent and ROBERTO-Prox RCA w/ 2.25 x 16 mm Promus Element Stent 03/06/2012 Start: 04-28-1997 History of coronary artery bypass grafting H/O coronary artery bypass surgery Dr. Jolanta Grant Work Phone: Comment on above: CABG x3 VERNON to LAD, SVG to RCA, SVG to LCX 04/28/1997 Plan of Treatment Date Care Activity Detail Author Start: 05-10-2025 LIPID SCREEN LIPID SCREEN [facility] Start: 02-22-2025 Influenza vaccination Influenza Vaccine (Season Ended) [facility] Start: 11-20-2024 Patient discharge [facility] Start: 11-19-2024 Inhalation therapy procedure [facility] Start: 11-18-2024 Administration of blood product [facility] Start: 11-18-2024 Removal of urinary catheter [facility] Start: 11-17-2024 Following clinical pathway protocol [facility] Start: 11-17-2024 Ambulation without limitation [facility] Start: 11-17-2024 Assessment of risk of venous thromboembolism [facility] Start: 11-17-2024 Continuous pulse oximetry [facility] Start: 11-17-2024 Elevation of head of bed [facility] Start: 11-17-2024 Insertion of catheter into peripheral vein [facility] Start: 11-17-2024 Measuring intake and output [facility] Start: 11-17-2024 Oxygen therapy [facility] Start: 11-17-2024 Patient referral to dietitian [facility] Start: 11-17-2024 Providing care according to standard [facility] Start: 11-17-2024 Provision of activity privileges [facility] Start: 11-17-2024 Referral to occupational therapist [facility] Start: 11-17-2024 Referral to service [facility] Start: 11-17-2024 Removal of urinary catheter [facility] Start: 11-17-2024 Vascular disease risk assessment [facility] Start: 11-17-2024 Vital signs measurements [facility] Start: 11-17-2024 [facility] Start: 11-17-2024 Admission procedure [facility] Start: 11-12-2024 [facility] Start: 10-18-2024 [facility] Start: 06-24-2024 Advance Directive Discussion Advance Directive Discussion [facility] Start: 04-15-2024 COLOGUARD (FIT-DNA) COLOGUARD (FIT-DNA) [facility] Start: 04-15-2024 COLORECTAL CANCER SCREENING COLORECTAL CANCER SCREENING [facility] Start: 02-23-2024 Covid-19 Vaccine ( season) Covid-19 Vaccine () [facility] Start: 02-23-2024 Influenza vaccination [facility] Start: 06-24-2023 Advance Directive Discussion Advance Directive Discussion [facility] Start: 06-24-2023 Behavioral Health Screening Behavioral Health Screening [facility] Start: 02-22-2023 Covid-19 Vaccine ( season) Covid-19 Vaccine () [facility] Start: 02-22-2023 Influenza vaccination Influenza Vaccine (#1) [facility] Start: 06-24-2022 ADVANCE DIRECTIVE DISCUSSION ADVANCE DIRECTIVE DISCUSSION [facility] Start: 06-24-2022 DEPRESSION ASSESSMENT DEPRESSION ASSESSMENT [facility] Start: 02-22-2022 Influenza vaccination INFLUENZA (#1) [facility] Start: 2021 RSV Vaccine (1 - 1-dose 75+ series) RSV Vaccine (1 - 1-dose 75+ series) [facility] Start: 08-16-2017 End: 02-22-2017 *Hepatic Function Panel *Hepatic Function Panel [facility] Work Phone: Start: 08-16-2017 End: 02-22-2017 Lipid panel [AGGREGATE] *Lipid Profile CC PCP [facility] Work Phone: Start: 08-01-2017 End: 08-01-2017 Appointment Appointment [facility] Work Phone: Start: 07-22-2017 End: 07-22-2017 Appointment Appointment [facility] Work Phone: Start: 05-03-2017 End: 05-03-2017 Appointment [facility] Work Phone: Start: 02-01-2017 End: 02-01-2017 Appointment Appointment [facility] Work Phone: Start: 02-01-2017 End: 02-01-2017 Appointment Appointment [facility] Work Phone: Start: 02-01-2017 End: 02-13-2017 *Hepatic Function Panel *Hepatic Function Panel [facility] Work Phone: Start: 02-01-2017 End: 02-01-2017 Follow Up Appt 3 months Follow Up Appt 3 months [facility] Work Phone: Start: 02-01-2017 End: 02-01-2017 Follow Up Appt 6 months Follow Up Appt 6 months [facility] Work Phone: Start: 02-01-2017 End: 02-13-2017 Lipid panel [AGGREGATE] *Lipid Profile CC PCP [facility] Work Phone: Start: 02-01-2017 End: 02-01-2017 MMM MMM [facility] Work Phone: Start: 02-01-2017 End: 02-01-2017 Pacer Clinic [facility] Work Phone: Start: 01-23-2017 End: 01-23-2017 Appointment Appointment [facility] Work Phone: Start: 01-23-2017 End: 01-23-2017 Appointment Appointment [facility] Work Phone: Start: 01-23-2017 End: 01-23-2017 [facility] Work Phone: Start: 01-23-2017 End: 01-23-2017 Follow Up Appt 6 months Follow Up Appt 6 months [facility] Work Phone: Start: 11-01-2016 End: 11-01-2016 Appointment Appointment [facility] Work Phone: Start: 11-01-2016 End: 11-01-2016 Follow Up Appt 3 months Follow Up Appt 3 months [facility] Work Phone: Start: 11-01-2016 End: 11-01-2016 Pulmonary Function Test - complete Pulmonary Function Test - complete [facility] Work Phone: Start: 11-01-2016 End: 11-01-2016 Pulmonary stress test/simple Pulmonary stress testing; simple (eg, 6-minute walk) [facility] Work Phone: Start: 06-28-2016 End: 06-28-2016 *BMP *BMP [facility] Work Phone: Start: 06-28-2016 End: 06-28-2016 *CBC with Differential *CBC with Differential [facility] Work Phone: Start: 06-28-2016 End: 06-28-2016 *Hepatic Function Panel *Hepatic Function Panel [facility] Work Phone: Start: 06-28-2016 End: 06-28-2016 [employer] [facility] Work Phone: Start: 06-28-2016 End: 06-28-2016 Follow Up Appt 3 months Follow Up Appt 3 months [facility] Work Phone: Start: 06-28-2016 End: 06-28-2016 Follow Up Appt 6 months Follow Up Appt 6 months [facility] Work Phone: Start: 06-28-2016 End: 06-28-2016 Lipid panel [AGGREGATE] *Lipid Profile CC PCP [facility] Work Phone: Start: 06-28-2016 End: 06-28-2016 Pacer Clinic Pacer Clinic [facility] Work Phone: Start: 03-20-2016 End: 06-13-2016 Follow Up Appt 3 months Follow Up Appt 3 months [facility] Work Phone: Start: 03-20-2016 End: 06-13-2016 Pacer Clinic Pac[facility] Clinic [facility] Work Phone: Start: 01-11-2016 End: 06-28-2016 *Hepatic Function Panel *Hepatic Function Panel [facility] Work Phone: Start: 01-11-2016 End: 06-28-2016 Lipid panel [AGGREGATE] *Lipid Profile CC PCP [facility] Work Phone: Start: 12-30-2015 End: 12-30-2015 Follow Up Appt 6 months Follow Up Appt 6 months [facility] Work Phone: Start: 12-30-2015 End: 12-30-2015 MMM MMM [facility] Work Phone: Start: 12-30-2015 End: 12-30-2015 Nuclear stress test -exercise Nuclear stress test -exercise [facility] Work Phone: Start: 12-19-2015 End: 06-13-2016 Follow Up Appt 3 months Follow Up Appt 3 months [facility] Work Phone: Start: 12-19-2015 End: 06-13-2016 Pacer Clinic Pacer Clinic [facility] Phone: Start: 09-07-2015 End: 06-13-2016 Follow Up Appt 3 months Follow Up Appt 3 months [facility] Work Phone: Start: 09-07-2015 End: 06-13-2016 Pacer Clinic Pacer Clinic [facility] Work Phone: Start: 07-13-2015 End: 07-13-2015 *Hepatic Function Panel *Hepatic Function Panel [facility] Work Phone: Start: 07-13-2015 End: 07-13-2015 Lipid panel [AGGREGATE] *Lipid Profile CC PCP [facility] Work Phone: Start: 07-06-2015 End: 07-13-2015 *BMP *BMP [facility] Work Phone: Start: 07-06-2015 End: 07-13-2015 CBC W Auto Differential panel - Blood *CBC without Diff [facility] Phone: Start: 07-06-2015 End: 07-06-2015 [employer] [facility] Work Phone: Start: 07-06-2015 End: 07-06-2015 Echocardiography Echocardiogram (complete) [facility] Work Phone: Start: 07-06-2015 End: 07-06-2015 Follow Up Appt 6 months Follow Up Appt 6 months [facility] Work Phone: Start: 07-06-2015 End: 07-06-2015 Follow Up Appt Other Follow Up Appt Other [facility] Work Phone: Start: 06-01-2015 End: 06-29-2015 Follow Up Appt 3 months Follow Up Appt 3 months [facility] Work Phone: Start: 06-01-2015 End: 06-29-[facility] Work Phone: Start: 03-02-2015 End: 06-29-2015 Follow Up Appt 3 months Follow Up Appt 3 months [facility] Work Phone: Start: 03-02-2015 End: 06-29-2015 [facility] Work Phone: Start: 12-30-2014 End: 12-30-2014 Follow Up Appt 6 months Follow Up Appt 6 months [facility] Work Phone: Start: 12-30-2014 End: 12-30-2014 MMM MMM [facility] Work Phone: Start: 11-24-2014 End: 12-30-2014 Follow Up Appt 3 months Follow Up Appt 3 months [facility] Work Phone: Start: 11-24-2014 End: 12-30-2014 [facility]er [facility] Work Phone: Start: 10-19-2014 End: 01-10-2015 *Hepatic Function Panel *Hepatic Function Panel [facility] Work Phone: Start: 10-19-2014 End: 01-10-2015 Lipid panel [AGGREGATE] *Lipid Profile CC PCP [facility] Work Phone: Start: 08-17-2014 End: 12-30-2014 Follow Up Appt 3 months Follow Up Appt 3 months [facility] Work Phone: Start: 08-17-2014 End: 12-30-2014 Pacer Clinic Pacer Clinic [facility] Work Phone: Start: 06-04-2014 End: 06-04-2014 [employer] [facility] Work Phone: Start: 06-04-2014 End: 06-04-2014 Follow Up Appt 6 months Follow Up Appt 6 months [facility] Work Phone: Start: 06-04-2014 End: 06-04-2014 Magnesium *Magnesium [facility] Phone: Start: 05-12-2014 End: 05-19-2014 Follow Up Appt 3 months Follow Up Appt 3 months [facility] Work Phone: Start: 05-12-2014 End: 05-19-2014 Pacer Clinic Pacer Clinic [facility] Work Phone: Start: 04-19-2014 End: 04-20-2014 *BMP *BMP [facility] Phone: Start: 04-19-2014 End: 04-20-2014 *Hepatic Function Panel *Hepatic Function Panel [facility] Work Phone: Start: 04-19-2014 End: 04-20-2014 Lipid panel [AGGREGATE] *Lipid Profile CC PCP [facility] Work Phone: Start: 02-04-2014 End: 05-19-2014 Follow Up Appt 3 months Follow Up Appt 3 months [facility] Work Phone: Start: 02-04-2014 End: 05-19-2014 Pacer Clinic Pacer Clinic [facility] Work Phone: Start: 12-03-2013 End: 12-03-2013 Follow Up Appt 6 months Follow Up Appt 6 months [facility] Work Phone: Start: 12-03-2013 End: 12-03-2013 MMM MMM [facility] Work Phone: Start: 11-04-2013 End: 04-20-2014 Follow Up Appt 3 months Follow Up Appt 3 months [facility] Work Phone: Start: 11-04-2013 End: 04-20-2014 Pacer Clinic Pacer Clinic [facility] Phone: Start: 08-05-2013 End: 04-20-2014 Follow Up Appt 3 months Follow Up Appt 3 months [facility] Work Phone: Start: 08-05-2013 End: 04-20-2014 [facility] Phone: Start: 06-01-2013 End: 06-10-2013 *BMP *BMP [facility] Phone: Start: 06-01-2013 End: 06-01-2013 [employer] [facility] Phone: Start: 06-01-2013 End: 06-01-2013 Electrocardiogram, complete EKG (In office) [facility] Phone: Start: 06-01-2013 End: 06-01-2013 Follow Up Appt 6 months Follow Up Appt 6 months [facility] Work Phone: Start: 05-04-2013 End: 06-01-2013 Follow Up Appt 3 months Follow Up Appt 3 months [facility] Work Phone: Start: 05-04-2013 End: 06-01-2013 Pacer Clinic Pacer Clinic [facility] Work Phone: Start: 01-30-2013 End: 06-01-2013 Follow Up Appt 3 months Follow Up Appt 3 months [facility] Work Phone: Start: 01-30-2013 End: 06-01-2013 Pacer Clinic Pacer Clinic [facility] Phone: Start: 12-02-2012 End: 12-02-2012 Follow Up Appt 6 months Follow Up Appt 6 months [facility] Phone: Start: 12-02-2012 End: 12-02-2012 MMM MMM [facility] Work Phone: Start: 09-29-2012 End: 06-01-2013 Follow Up Appt 3 months Follow Up Appt 3 months [facility] Work Phone: Start: 09-29-2012 End: 06-01-2013 Pacer Clinic Pacer Clinic [facility] Phone: Start: 09-24-2012 End: 10-02-2012 *BMP *BMP [facility] Phone: Start: 09-24-2012 End: 10-02-2012 *CBC with Differential *CBC with Differential [facility] Phone: Start: 09-24-2012 End: 10-02-2012 *Hepatic Function Panel *Hepatic Function Panel [facility] Phone: Start: 09-24-2012 End: 10-02-2012 Lipid panel [AGGREGATE] *Lipid Profile [facility] Phone: Start: 09-24-2012 End: 10-02-2012 Magnesium *Magnesium [facility] Work Phone: Start: 09-24-2012 End: 10-02-2012 Thyroid stimulating hormone (TSH) *TSH [facility] Work Phone: Start: 09-24-2012 End: 10-02-2012 Thyroxine (T4) *T4 (Total) [facility] Phone: Start: 09-15-2012 End: 09-15-2012 Follow Up Appt 3 months Follow Up Appt 3 months [facility] Phone: Start: 09-10-2012 End: 09-15-2012 *Hepatic Function Panel *Hepatic Function Panel [facility] Phone: Start: 09-10-2012 End: 09-15-2012 Lipid panel [AGGREGATE] *Lipid Profile [facility] Phone: Start: 06-12-2012 End: 06-12-2012 Follow Up Appt 3 months Follow Up Appt 3 months [facility] Phone: Start: 04-24-2012 End: 04-10-2012 *BMP *BMP [facility] Phone: Start: 03-27-2012 End: 05-26-2012 *Hepatic Function Panel *Hepatic Function Panel [facility] Phone: Start: 03-27-2012 End: 04-10-2012 Electrocardiogram, complete EKG (In office) [facility] Phone: Start: 03-27-2012 End: 03-27-2012 Follow Up Appt 2 months Follow Up Appt 2 months [facility] Phone: Start: 03-27-2012 End: 03-27-2012 Follow Up Appt Other Follow Up Appt Other [facility] Phone: Start: 03-27-2012 End: 05-26-2012 Lipid panel [AGGREGATE] *Lipid Profile [facility] Phone: Start: 11-09-2011 BONE DENSITY BONE DENSITY [facility] Start: 11-09-2011 Bone Density Screening Bone Density Screening [facility] Start: 11-09-2011 PNEUMOCOCCAL: 65+ (1 - PCV) PNEUMOCOCCAL: 65+ (1 - PCV) [facility] Start: 11-09-2011 Screening for osteoporosis Bone Density Screening [facility] Start: 2006 RSV Vaccine (1 - 1-dose 60+ series) RSV Vaccine (1 - 1-dose 60+ series) [facility] Start: 1996 Pneumococcal Vaccine: 50+ (1 of 1 - PCV) Pneumococcal Vaccine: 50+ (1 of 1 - PCV) [facility] Start: 1996 SHINGRIX VACCINE (1 of 2) SHINGRIX VACCINE (1 of 2) [facility] Start: 11-09-1991 Colonoscopy COLONOSCOPY [facility] Start: 11-09-[address] COLONOGRAPHY [facility] Start: 11-09-1991 DIABETES SCREEN DIABETES SCREEN [facility] Start: 11-09-1991 Diabetes Screening Diabetes Screening [facility] Start: 11-09-1991 FECAL OCCULT BLOOD FECAL OCCULT BLOOD [facility] Start: 11-09-1991 SIGMOIDOSCOPY SIGMOIDOSCOPY [facility] Start: 1965 Urine microalbumin profile [facility] Start: 1964 Anxiety Screening Anxiety Screening [facility] Start: 1964 Depression Screening Depression Screening [facility] Start: 1964 HEPATITIS C SCREENING HEPATITIS C SCREENING [facility] Start: 1964 Hepatitis C screening Hepatitis C Screening [facility] Start: 1952 Pneumococcal Vaccine: 65+ (1 - PCV) Pneumococcal Vaccine: 65+ (1 - PCV) [facility] Start: 1952 Pneumococcal Vaccine: 65+ (1 of 2 - PCV) Pneumococcal Vaccine: 65+ (1 of 2 - PCV) [facility] Start: [birth year]-11-1946 COVID-19 VACCINE (#1) COVID-19 VACCINE (#1) [facility] Lipid 1996 panel - S juany or Plasma [facility] Work Phone: Patient Education [facility] Work Phone: Patient referral [facility] Work Phone: Payers Date Payer Category Payer Self-pay [id number] 2014 Medicare [id number] Unknown [id number] 2.16.8 40.1.851579.3.579.2.462 Unknown [id number] 2.16.8 40.1.230492.3.579.2.462 Unknown [id number] 2.16.8 40.1.703139.3.579.2.462 Unknown [id number] 2.16.8 40.1.324343.3.579.2.462 Unknown [id number] 2.16.8 40.1.979028.3.579.2.462 Unknown [id number] 2.16.8 40.1.500157.3.579.2.462 Unknown [id number] 2.16.8 40.1.903170.3.579.2.462 Unknown [id number] 2.16.8 40.1.297578.3.579.2.462 Unknown [id number] 2.16.8 40.1.421499.3.579.2.462 Unknown [id number] 2.16.8 40.1.280506.3.579.2.462 Unknown [id number] 2.16.8 40.1.390537.3.579.2.462 Unknown [id number] 2.16.8 40.1.962584.3.579.2.462 Unknown [id number] 2.16.8 40.1.849797.3.579.2.462 Unknown [id number] 2.16.8 40.1.596177.3.579.2.462 Unknown [id number] 2.16.8 40.1.864065.3.579.2.462 Unknown [id number] 2.16.8 40.1.790986.3.579.2.462 Unknown [id number] 2.16.8 40.1.009989.3.579.2.462 Unknown [id number] 2.16.8 40.1.245625.3.579.2.462 Unknown [id number] 2.16.8 40.1.423144.3.579.2.462 Unknown [id number] 2.16.8 40.1.147776.3.579.2.462 Unknown [id number] 2.16.8 40.1.570839.3.579.2.462 Unknown [id number] 2.16.8 40.1.018452.3.579.2.462 Social History Date Type Detail Facility Start: 09-12-2021 End: 10-16-2022 Tobacco smoking status NHIS Unknown if ever smoked [facility] Start: 12-13-2020 None [facility] Start: 12-13-2020 Homeless [facility] Start: 12-13-2020 Cigarettes [facility] Start: 1945 Sex Assigned At Female [facility] Start: 05-12-2014 End: 11-17-2024 Tobacco smoking status NHIS Smokes tobacco daily [facility] Work Phone: Start: 09-20-2016 Alcohol intake Not Asked [facility] Start: 1945 Sex Assigned At Not on file [facility] Start: 10-01-2017 History of Social function [facility] Start: 10-01-2017 Tobacco use panel [facility] Start: 11-02-2024 Tobacco smoking status NHIS Current Heavy tobacco smoker [facility] NEGATED: Highlighted row Not [facility] Medical Equipment Procedure Code Equipment Code Equipment Origin al Text Equipment Identifier Dates Femoral-femoral crossover arteriogram EPIC VASCULAR STENT FDA Start: 11-17-2024 Femoral-femoral crossover arteriogram FEM-POP ARTERY >30CM FDA Start: 11-17-2024 Femoral-femoral crossover arteriogram Cardiovascular patch, animal-derived [id number] FDA Start: 11-17-2024 Femoral-femoral crossover arteriogram Peripheral artery stent, bare-metal [id number] FDA Start: 11-17-2024 Femoral-femoral crossover arteriogram Ligation clip, metallic [id number] FDA Start: 11-17-2024 Femoral-femoral crossover arteriogram Ligation clip, metallic [id number] FDA Start: 11-17-2024 Femoral-femoral crossover arteriogram Ligation clip, metallic ()[id number] FDA Start: 11-17-2024 Goals Date Patient Goal Desired Activity /State Functional Status Date Assessment Result Facility 11-20-2024 Functional status Ambulates;Bath room Privilege [facility] Work Phone: 05-12-2014 Are you deaf, or do you have serious difficulty hearing No 05/12/2014 2:12 PM Susie Ferrer MA No [facility] 05-12-2014 Are you blind, or do you have serious difficulty seeing, even when wearing glasses No 05/12/2014 2:12 PM Susie Ferrer MA [facility] 05-12-2014 Do you have serious difficulty walking or climbing stairs No 05/12/2014 2:12 PM Susie Ferrer MA [facility] 05-12-2014 Do you have difficul ty dressing or bathing No 05/12/2014 2:12 PM Susie Ferrer MA [facility] 05-12-2014 Because of a physica l, mental, or emotional condition, do you have difficulty doing errands alone such as visiting a physician's office or shopping No 05/12/2014 2:12 PM Susie Ferrer MA [facility] Mental Status Date Assessment Result Facility 11-20-2024 Cognitive function Voice/Name [facility] Work Phone: 05-12-2014 Because of a physica l, mental, or emotional condition, do you have serious difficulty concentrating, remembering, or making decisions No 05/12/2014 2:12 PM Susie Ferrer MA [facility] Clinical Notes 08-04-2020 to 11-20-2024 Note Date & Type Note Facility 11-20-2024 Note [facility] Medical Records Department [address] [place] [address] History Physical Exam 11/20/242029 MR#: [id number] Acct: [id number] Name: NELLI RIVERS Rep #: [id number] : 1945 79 From: Shahid Raya MD PCP: Care Physician,No Primary Status:ADM IN Location: [facility] TCU04-1 HPI - General General Date of Admission: 11/20/24 Date of Service: 11/20/24 Chief Complaint: Here for rehabilitation. HPI Narrative NELLI RIVERS, is a 79 Female who presents with followin11/17/[address] [facility] [place]. CTA with runoff showed bilateral lower extremity PAOD. 11/17/2024 Dr. Dc performed right common and external iliac artery intravascular lithotripsy, angioplasty, and stent. Right femoral endarterectomy. Right to left femoral-femoral bypass with cadaver graft. Bilateral sartorius flaps. 11/18/2024 Tolerating clear liquid diet. Left hallux pain, right groin incisional pain. Blood pressure low. Replace K 3.1. D/C mitchell, D/C art-line, regular diet, PT/OT. 11/19/2024 Tired from therapy. Hemoglobin 7.8, transfuse 1 unit PRBC, Hemoglobin 9.3 afterwards. Prevena VAC to bilateral inguinal incision sites thru 11/25/2024. Blood pressure improved. PT/OT. 11/20/2024 Admit to TCU with debility, here for rehabilitation, strengthening, prior to discharge home with spouse/family. [facility] Medical History (Updated 11/20/24 @ 20:[address] 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) Nicotine dependence Essential (primary) hypertension Ischemic cardiomyopathy Chronic systolic congestive heart failure Atrioventricular block Old myocardial infarction Atherosclerosis of coronary artery 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 Tobacco abuse Psoriasis Hypercholesteremia Syncope and collapse Hyperlipemia Hypokalemia History of syncope History of sinus bradycardia Home Medications ???Medication ???Instructions ???Recorded ???Last Taken ???Type aspirin 81 mg chewable tablet 81 mg PO DAILY@0800 blood thinner 09/27/16 11/20/24 08:50 History nitroglycerin 0.4 mg sublingual 0.4 mg sublingual Q5-15M PRN chest 10/16/22 Unknown Rx tablet pain #25 tabs potassium chloride 10 mEq 20 meq (2 x 10 mEq) PO DAILY 10/2011/20/24 08:50 Rx capsule,extended release supplement #180 caps vitamin D3 125 mcg (5,000 1 cap PO DAILY supplement 12/06/23 11/16/24 History unit)-vitamin K2 100 mcg capsule carvedilol 12.5 mg tablet (Coreg) 12.5 mg PO BID bp #180 tabs 03/1611/20/24 16:15 Rx lisinopril 20 mg tablet 20 mg PO BID bp #180 tabs 03/16/24 11/16/24 Rx clopidogrel 75 mg tablet 75 mg PO DAILY blood thinner #90 0 10/27/24 11/20/24 08:50 Rx tabs atorvastatin 80 mg tablet 80 mg PO QHS cholesterol 11/02/24 11/19/24 22:00 History calcium carbonate 500 1 - 2 tab PO .as directed PRN 10/22 08/18 Unknown History mg-simethicone 20 mg chewable reflux tablet furosemide 40 mg tablet 40 mg PO DAILY dieretic 11/02/24 0 11/20/24 08:50 History magnesium sulfate 1 ea topical TID PRN PRN cramps Unknown History acetaminophen 500 mg tablet 1,000 mg (2 x 500 mg) PO Q8 Pain 0 11/20/24 11/20/24 13:30 Rx #0 tabs docusate sodium 100 mg capsule 100 mg PO BID PRN PRN Constipation 11/20/24 11/20/24 13:30 Rx #0 caps oxycodone 5 mg tablet 5 mg PO Q8H PRN PRN Pain Score 11/20/24 16:10 Rx 4-10 5 days #15 tabs Allergy/AdvReac Type Severity Reaction Status Date / Time No Known Allergies Allergy Verified 11/17/24 06:15 Family History Father CAD (coronary artery disease) Myocardial infarction Brother CAD (coronary artery disease) Myocardial infarction Mother Cancer Surgical History History of electrophysiologic study (03/07/12) Biventricular ICD (implantable cardioverter-defibrillator) in place (08/04/20) History of coronary artery stent placement (03/06/12) H/O coronary artery bypass surgery (04/28/97) Saphenous vein graft to CFX saphenous vein graft to RCA H/O tubal ligation History of left heart catheterization (06/27/20) Social History household members: spouse and family housing: house Smoking Status: Current every day smoker tobacco type: cigarettes second hand exposure: Yes alcohol intake: current alcohol intake frequency: holidays/special occasions only substance use type: does not use caffeine: Yes Type: carbonated beverages Number of servings: 4 what type of (more content not included)... [facility] 11-20-2024 Note [facility] Medical Records Department [address] [place] [address] Discharge Summary 11/20/24 1539 MR#: [id number] Acct: [id number] Name: NELLI RIVERS Rep #: [id number] : 1945 79 From: Tiana LOCKWOOD PCP: Care Physician,No Primary Status:DIS IN Location: ICU [id number] Providers Date of Admission: 11/17/24 Primary Care Physician: No Primary Care Phys Reason For Visit: ATHEROSCLEROSIS W/ REST PAIN, LEFT LOWER EXTREMITY Diagnosis Discharge Diagnosis (1) Atherosclerosis of [place] arteries of extremities with intermittent claudication, left leg: Status: Chronic Code(s): I70.212 - Atherosclerosis of [place] arteries of extremities with intermittent claudication, left leg Plan: She is POD#3 from R common/external iliac artery lithotripsy angioplasty and stent, R common fem endart, R to L fem-fem bypass, and bilateral sartorius flaps. Vascular exam is stable/improving, R pedal pulse now palpable, L pedal pulse with good doppler signals. Her pain is improving. Incision sites are satisfactory in appearance with Prevena vacs maintaining good seal. Plan for vacs to remain in place for 7 days postop to be removed 11/25/24. BPs have remained improved and now hypertensive this morning to systolic 160s; will restart home carvedilol, consider restarting home lisinopril with evening dose. Potassium improved to 3.5. Hgb stable at 9.1. Kidney function stable. She is appropriate for discharge pending precert approval for planned discharge to TCU. Medications at Discharge Home Medications aspirin 81 mg chewable tablet 81 mg PO DAILY@0800 blood thinner 09/27/16 nitroglycerin 0.4 mg sublingual tablet 0.4 mg sublingual Q5-15M PRN chest pain #25 tabs 10/16/22 potassium chloride 10 mEq capsule,extended release 20 meq (2 x 10 mEq) PO DAILY supplement #180 caps 10/21/23 vitamin D3 125 mcg (5,000 unit)-vitamin K2 100 mcg capsule 1 cap PO DAILY supplement 12/06/23 carvedilol 12.5 mg tablet (Coreg) 12.5 mg PO BID bp #180 tabs 03/16/24 lisinopril 20 mg tablet 20 mg PO BID bp #180 tabs 03/16/24 clopidogrel 75 mg tablet 75 mg PO DAILY blood thinner #90 tabs 10/27/24 atorvastatin 80 mg tablet 80 mg PO QHS cholesterol 11/02/24 calcium carbonate 500 mg-simethicone 20 mg chewable tablet 1 - 2 tab PO .as directed PRN reflux 11/02/24 furosemide 40 mg tablet 40 mg PO DAILY dieretic 11/02/24 magnesium sulfate 1 ea topical TID PRN PRN cramps 11/02/24 acetaminophen 500 mg tablet 1,000 mg (2 x 500 mg) PO Q8 #0 tabs 11/20/24 docusate sodium 100 mg capsule 100 mg PO BID PRN PRN Constipation #0 caps 11/20/24 oxycodone 5 mg tablet 5 mg PO Q8H PRN PRN Pain Score 4-10 5 days #15 tabs 11/20/24 Hospital Course Summary of Care Provided Hospital Course: Nelli Rivers is a 79 y/o female who underwent planned right common and external iliac artery intravascular lithotripsy angioplasty and stent, right femoral endarterectomy, and right to left femoral-femoral bypass with cadaver, and bilateral sartorius flaps on 11/17/24 due to LLE rest pain with severe multilevel atherosclerotic disease. The procedure was without complication and she tolerated it well. Postoperatively, she was routinely admitted to the ICU for ongoing hemodynamic monitor. Her vascular exam has been much improved following the procedure; her L foot rest pain is resolved though she had lingering L big toe pain until POD#3. The bilateral groin incision sites have been satisfactory in appearance without evidence of hematoma or infection; Prevena vac dressings are in place and have been maintaining good seal. She did have hypotension postoperatively and was found to have postoperative anemia to 7.8 on POD#1; she received 1 unit PRCB, 250mL NS bolus with albumin and her hypotension resolved. Home antihypertensives were restarted POD#3. She has worked with PT/OT postoperatively and is found to be functioning below her baseline with inability to tolerate steps and with significant shortened walking duration which precludes safe discharge to her home which has 15 steps to her bathroom/bedroom. She is therefore discharged to TCU for further skilled therapy 5 times weekly for strengthening. Physical Exam Const oriented x3 and no apparent distress General Appearance: cooperative HEENT normocephalic, head/scalp atraumatic, external ears normal and external nose normal Eyes EOMs intact bilaterally General Eye: normal appearance of both eyes Neck General: normal visual inspection and trachea midline Resp normal respiratory effort and clear to auscultation bilaterally Effort and Inspection: able to speak in complete sentences; Negative for labored, grunting or stridor Cardio regular rate and regular rhythm Extremity normal to inspection and no clubbing, cyanosis or edema Extremity Narrative: Bilateral groin incision Skin no rashes or lesions noted Trauma (more content not included)... [facility] 11-18-2024 Progress note Note Date/Time November 18, 2024 3:04pm [facility] Medical Records Department [address] [place] [address] Progress Note - Surgery 11/18/24 0823 MR#: [id number] Acct: [id number] Name: NELLI RIVERS Rep #:[id number] : 1945 79 From: Tiana LOCKWOOD PCP: Care Physician,No Primary Status :ADM IN Location: ICU CVICU20 3-1 Subjective Subjective I saw patient this morning resting comfortably in bed, eating breakfast which was still clear liquids. She reports she has been tolerating liquids well. She reports feeling fatigued, she reports pain in her L big toe, and she reports pain at the groin incision sites with movement. No other complaints/concerns. Discussed with nursing, arterial line has been positional and patient reported to them concern about going home at discharge, not sure she has enough support there. BPs have been stable, on the lower side. Objective Data Objective Data Vital Signs: Vital Signs Temp Pulse Resp BP Pulse Ox O2 Del Method 98.7 F 60 15 118/46 L 94 Room Air 11/17/24 15:25 11/18/24 07:00 11/18/24 07:00 11/18/24 07:00 11/18/24 07:00 11/18/24 07:00 Oxygen Delivery Method Room Air Weight: 139 lb 5.314 oz Body Mass Index (BMI) 25.6 Intake & Output: Intake and Output for Last 24 Hours 11/16/24 11/17/24 11/18/24 23:59 23:59 23:59 Intake Total 477 / 477 1180 / 1180 Output Total 1000 / 1000 325 / 325 Balance -523 / -523 855 / 855 Lab / Micro Data 11/18/24 05:08 11/18/24 05:08 Labs: Laboratory Results - last 24 hr 11/17/24 08:28: Activated Clotting Time 268 H 11/17/24 08:59: Activated Clotting Time 239 H 11/17/24 09:31: Activated Clotting Time 251 H 11/17/24 10:17: Activated Clotting Time 320 H 11/17/24 10:55: Activated Clotting Time 222 H 11/17/24 11:34: Activated Clotting Time 250 H 11/18/24 05:08: WBC 11.5 H, RBC 2.59 L, Hgb 8.2 L, Hct 22.7 L, MCV 87.6, MCH 31.7, MCHC 36.1 H, RDW Std Deviation 41.2, RDW Coeff of Bao 12.9, Plt Count 214,MPV 9.6, Immature Gran % (Auto) 0.800, Neut % (Auto) 82.2 H, Lymph % (Auto) 10.8L, Floyd % (Auto) 6.0, Eos % (Auto) 0.0, Baso % (Auto) 0.2, Absolute Neuts (auto)9.5 H, Absolute Lymphs (auto) 1.24, Nucleated RBC % 0, Sodium 137, Potassium 3.1L, Chloride 102, Carbon Dioxide 23.8, Anion Gap 11, BUN 20 H, Creatinine 0.92, Estim Creat Clear Calc 44.03 L, Est GFR (MDRD) Non-Af 64, BUN/Creatinine Ratio 21.7 H, Glucose 125 H, Calcium 8.3, Phosphorus 3.7, Magnesium 1.7 Radiography Diagnostic Testing: Radiology Impression Fluoroscopy 11/17/24 06:30 IMPRESSION: Intraoperative fluoroscopic services provided for right common iliac stenting. Reading Location: [place] [address] Physical Exam Const alert, oriented x3 and no apparent distress General Appearance: cooperative HEENT normocephalic, head/scalp atraumatic, external ears normal and external nose normal Eyes EOMs intact bilaterally General Eye: normal appearance of both eyes Neck General: normal visual inspection and trachea midline Resp normal respiratory effort, normal air movement, no retractions and no use of accessory muscles Effort and Inspection: able to speak in complete sentences; Negative for labored, grunting or stridor Cardio regular rate and regular rhythm Extremity Extremity Narrative: Bilateral groin incision sites with Prevena vacuum dressings C/D/I, maintaining good seal. No output in the canister in the L groin, scant serosanguineous drainage in the canister on the R groin. Both without significant edema, soft topalpation, no ecchymosis or erythema. R DP and PT pulses strong, monophasic by doppler L DP and PT pulses strong, monophasic by doppler Bilateral feet are appropriately warm, no cyanotic/ruborous discoloration. L bigtoe without any erythema/focal edema/wounds/cyanotic discoloration Skin no rashes or lesions noted Neuro moves all extremities and no focal motor deficits Speech: speech normal Psych mental status grossly normal Appearance: grossly normal Attitude: calm and engaged Activity / Motor Behavior: appropriate eye contact Speech: normal speech Assessment & Plan Assessment/Plan (1) Atherosclerosis of [place] arteries of extremities with intermittent claudication, left leg: PLAN: She is POD#1 from R common/external iliac artery lithotripsy angioplasty and stent, R common fem endart, R to L fem-fem bypass, and bilateral sartorius flaps. Bilateral pedal pulses with strong doppler signals. Incision sites are satisfactory in appearance with Prevena vacs maintaining goodseal. Plan for vacs to remain in place for 7 days postop. Expected pain at the groin access sites; L toe pain may be reperfusion/ischemic neuropathy, will continue to monitor. BPs have been on the lower side. Significant Hgb drop after surgery, no signs ofbleeding, she is fluid positive for her visit so may be dilutional to some degree; will monitor. Will hold her home antihypertensives and monitor for now. Potassium 3.1. She takes 20 meq supplement at baseline, will add additional 20 meq today and continue to monitor. Plan to discontinue mitchell, discontinue arterial line, and advance to normal diet. Will await PT/OT evaluation and recommendations to assist with discharge planning. From surgical perspective, expect she may be appropriate for discharge tomorrow pending possible need for SNF/rehab placement. Charges/Coding Procedures Integumentary [id number]: [id number] Global Visit 11/18/24 1452 <Electronically signed by Tiana LOCKWOOD> Cosigner Signature (if applicable): 11/18/24 1504 <Electronically signed by Crow Dc MD> CC: ~ Signed [facility] Work Phone: 1(540) 172-699705-28-2025 Progress note [facility] Medical Records Department [address] [place] [address] Progress Note - Surgery 11/18/24 08 MR#: [id number] Acct: [id number] Name: NELLI RIVRES Rep #:[id number] : 1945 79 From: Tiana LOCKWOOD PCP: Care Physician,No Primary Status :ADM IN Location: ICU CVICU20 3-1 Subjective Subjective I saw patient this morning resting comfortably in bed, eating breakfast which was still clear liquids. She reports she has been tolerating liquids well. She reports feeling fatigued, she reports painin her L big toe, and she reports pain at the groin incision sites with movement. No other complaints/concerns. Discussed with nursing, arterial line has been positional and patient reported to them concern about going home at discharge, not sure she has enough support there. BPs have been stable, on the lowerside. Objective Data Objective Data Vital Signs: Vital Signs Temp Pulse Resp BP Pulse Ox O2 Del Method 98.7 F 60 15 118/46 L 94 Room Air 11/17/24 15:25 11/18/24 07:00 11/18/24 07:00 11/18/24 07:00 11/18/24 07:00 11/18/24 07:00 Oxygen Delivery Method Room Air Weight: 139 lb 5.314 oz Body Mass Index (BMI) 25.6 Intake & Output: Intake and Output for Last 24 Hours 11/16/24 11/17/24 11/18/24 23:59 23:59 23:59 Intake Total 477 / 477 1180 / 1180 Output Total 1000 / 1000 325 / 325 Balance -523 / -523 855 / 855 Lab / Micro Data 11/18/24 05:08 11/18/24 05:08 Labs: Laboratory Results - last 24 hr 11/17/24 08:28: Activated Clotting Time 268 H 11/17/24 08:59: Activated Clotting Time 239 H 11/17/24 09:31: Activated Clotting Time 251 H 11/17/24 10:17: Activated Clotting Time 320 H 11/17/24 10:55: Activated Clotting Time 222 H 11/17/24 11:34: Activated Clotting Time 250 H 11/18/24 05:08: WBC 11.5 H, RBC 2.59 L, Hgb 8.2 L, Hct 22.7 L, MCV 87.6, MCH 31.7, MCHC 36.1 H, RDWStd Deviation 41.2, RDW Coeff of Bao 12.9, Plt Count 214,MPV 9.6, Immature Gran % (Auto) 0.800, Neut % (Auto) 82.2 H, Lymph % (Auto) 10.8L, Floyd % (Auto) 6.0, Eos % (Auto) 0.0, Baso % (Auto) 0.2, Absolute Neuts (auto)9.5 H, Absolute Lymphs (auto) 1.24, Nucleated RBC % 0, Sodium 137, Potassium 3.1L,Chloride 102, Carbon Dioxide 23.8, Anion Gap 11, BUN 20 H, Creatinine 0.92, Estim Creat Clear Calc 44.03 L, Est GFR (MDRD) Non-Af 64, BUN/Creatinine Ratio 21.7 H, Glucose 125 H, Calcium 8.3, Phosphorus 3.7, Magnesium 1.7 Radiography Diagnostic Testing: Radiology Impression Fluoroscopy 11/17/24 06:30 IMPRESSION: Intraoperative fluoroscopic services provided for right common iliac stenting. Reading Location: [facility] Physical Exam Const alert, oriented x3 and no apparent distress General Appearance: cooperative HEENT normocephalic, head/scalp atraumatic, external ears normal and external nose normal Eyes EOMs intact bilaterally General Eye: normal appearance of both eyes Neck General: normal visual inspection and trachea midline Resp normal respiratory effort, normal air movement, no retractions and no use of accessory muscles Effort and Inspection: able to speak in complete sentences; Negative for labored, grunting or stridor Cardio regular rate and regular rhythm Extremity Extremity Narrative: Bilateral groin incision sites with Prevena vacuum dressings C/D/I, maintaining good seal. No output in the canister in the L groin, scant serosanguineous drainage in the canister on the R groin. Both without significant edema, soft topalpation, no ecchymosis or erythema. R DP and PT pulses strong, monophasic by doppler L DP and PT pulses strong, monophasic by doppler Bilateral feet are appropriately warm, no cyanotic/ruborous discoloration. L bigtoe without any erythema/focal edema/wounds/cyanotic discoloration Skin no rashes or lesions noted Neuro moves all extremities and no focal motor deficits Speech: speech normal Psych mental status grossly normal Appearance: grossly normal Attitude: calm and engaged Activity / Motor Behavior: appropriate eye contact Speech: normal speech Assessment & Plan Assessment/Plan (1) Atherosclerosis of [place] arteries of extremities with intermittent claudication, left leg: PLAN: She is POD#1 from R common/external iliac artery lithotripsy angioplasty and stent, R common fem endart, R to L fem-fem bypass, and bilateral sartorius flaps. Bilateral pedal pulses with strongdoppler signals. Incision sites are satisfactory in appearance with Prevena vacs maintaining goodseal. Plan for vacsto remain in place for 7 days postop. Expected pain at the groin access sites; L toe pain may be reperfusion/ischemic neuropathy, will continue to monitor. BPs have been on the lower side. Significant Hgb drop after surgery, no signs ofbleeding, she is fluid positive for her visit so may be dilutional to some degree; will monitor. Will hold her home antihypertensives and monitor for now. Potassium 3.1. She takes 20 meq supplement at baseline, will add additional 20 meq today and continue to monitor. Plan to discontinue mitchell, discontinue arterial line, and advance to normal diet. Will await PT/OT evaluation and recommendations to assist with discharge planning. From surgical perspective, expect she may be appropriate for discharge tomorrow pending possible need for SNF/rehab placement. Charges/Coding Procedures Integumentary 111xxx-113xx: 79025 Global Visit 11/18/24 1452 Cosigner Signature (if applicable): 11/18/24 1504 CC: ~ Signed [facility]05-27-2025 Consult note Author Haven Mcneil [facility] Note Date/Time November 17, 2024 2:07p michelle [facility] Medical Records Department [address] [place] [address] Anesthesia Postop Eval II 11/17/24 1406 MR#: [id number] Acct: [id number] Name: NELLI RIVERS Rep #:[id number] : 1945 79 From: Haven gustafson WOOD TILE INSTALLER PCP: Dr. Jolanta Grant MD Status:ADM IN Y Race: C Location: ICU CVICU 203-1 Anesthesia Postop Eval I Sum Postop Eval Completion status Anesthesia document: Postop Eval 1 completed: Yes Anesthesia Postop Eval I Summary Anesthesia Postop Eval I Summary: Anesthesia Postop Eval I: Assessment Summary Airway patent Yes 11/17/24 14:01 [email or web address] [email or web address] Spontaneous unlabored Yes 11/17/24 14:01 [email or web address] [email or web address] [email or web address] respirations Mental status Awake,Calm, 11/17/24 14:01 [email or web address] [email or web address] [email or web address] Confused nausea No 11/17/24 14:01 WOOD [email or web address] [email or web address] Vomiting No 11/17/24 14:01 WOOD [email or web address] [email or web address] Anesthesia Postop Eval I: Fluid Summary Crystalloid volume administer 2,500 11/17/24 14:01 [email or web address] [email or web address] (ml) Colloids volume administered ( ml) Blood Product volume administered (ml) Total IV fluid infused 2,500 11/17/24 14:01 WOOD TILE [email or web address] Anesthesia Postop Eval I: Summary Notes Anesthesia Complication No 11/17/24 14:01 WOOD TILE [email or web address] Anesthesia Complication Comment: Post-operative progress note Anesthesia: Postop Eval II Evaluation Mental status: Awake and Calm Pain Level: 0 nausea: No Vomiting: No Complications Anesthesia Complication: No 11/17/24 1407 <Electronically signed by Haven paris WOOD TILE INSTALLER> Date _ Haven Mcneil WOOD TILE INSTALLER Cosigner Signature: Date CC: ~ Signed [facility] Work Phone: 1(775) 959-919505-27-2025 Consult note Author Lul Hood [facility] Note Date/Time November 17, 2024 2:01[facility] Medical Records Department [address] [place], [place] [address] [address] Anesthesia Postop Eval I 11/17/24 1400 MR#: [id number] Acct: [id number] Name: NELLI RIVERS Rep #:[id number] : 1945 79 From: Lul Hood CRNA PCP: Dr. Jolanta Grant MD Status:ADM IN Y Race: C Location: ICU [place] [address] Anesthesia: Postop Eval I Current Vital Signs Temperature: 97.2 F Pulse Rate: 67 Blood Pressure: 133/54 Respiratory Rate: 20 Pulse Ox: 99 Oxygen Delivery Method: Room Air Assessment Airway patent: Yes Spontaneous unlabored respirations: Yes Mental status: Awake, Calm and Confused nausea: No Vomiting: No Anesthesia Complication: No Fluid Hydration Crystalloid volume administer (ml): 2,500 Total IV fluid infused: 2,500 Progress Note Anesthesia document: Postop Eval 1 completed: Yes 11/17/24 140 <Electronically signed by Lul way WOOD TILE INSTALLER> Date _ Lul Hood WOOD TILE INSTALLER Cosigner Signature: Date CC: ~ Signed [facility] Work Phone: 1(455) 878-447805-27-2025 Radiology Diagnostic study note [facility] Imaging Services [address] [place] [address] Fluoroscopy 1 Hr or Less MR#: [id number] Acct: [id number] Name: NELLI RIVERS Rep #: [id number] : 1945 F 79 From: Martín Osborn MD PCP: Dr. Jolanta Grant MD Status: ADM IN Study:Fluoroscopy 1 Hr or Less Date of Exam: 11/17/24 Exam# [id number] Ordering Dr: [place] Dc MD PROCEDURE: FLUOROSCOPY 1 HR OR LESS 11/17/2024 REASON FOR EXAM: Right iliac stenting. TECHNIQUE: Standing AP view(s) of the thoracic and lumbar spine.. 12 minutes and 29 seconds of fluoroscopy. 171.28 mGy. COMPARISON: None FINDINGS: Intraoperative fluoroscopic services provided for stenting. RAD/Fluoroscopy 1 Hr or Less IMPRESSION: Intraoperative fluoroscopic services provided for right common iliac stenting. Reading Location: [place] [address] CC: Dr. Crow Dc MD; Dr. Jolanta Grant MD ~ Job Forwarder: Signed [facility]05-27-2025 Procedure note [facility] Medical Records Department [address] [place] [address] Operative Report 11/17/24 1412 MR#: [id number] Acct: [id number] Name: NELLI RIVERS Rep #:[id number] : 1945 79 From: Crow Dc MD PCP: Dr. Jolanta Grant MD Status:ADM IN [facility] Report (Standard) Operative Information Date of Procedure: 11/17/24 Pre-Operative Diagnosis: atherosclerosis northern che[place] arteries with rest pain, left lower extremity Post-Operative Diagnosis: same Surgery/Procedure Performed: Right common and external iliac artery intravascular lithotripsy angioplasty and stent Right femoral endarterectomy Right to left femoral-femoral bypass with cadaver Bilateral sartorius flaps towel inspector: Yes Manager Field Investigations: Alina Pena Tasks completed by butcher assistant: Opening, Closing, Opening & closing, Hemostasis: Tie and Retracting Type of Anesthesia: General RN Documented Start/Stop Times: Operation Date: 11/17/24 07:30 Case Time Into Pre-Op 11/17/24 05:48 Out of Pre-Op 11/17/24 07:34 Anesthesia Start 11/17/24 07:38 Into Room 11/17/24 07:38 Procedure Start 11/17/24 08:23 Procedure End 11/17/24 13:37 Anesthesia End 11/17/24 13:48 Out of Room 11/17/24 13:48 Procedure Start Time: 08:30 Procedure Stop Time: 13:30 Select all DRAINS/GRAFTS/IMPLANTS that apply: Graft Graft details: Cadaver femoral-popliteal arteryand Implanted device Implanted device details: Right common iliac stent-[employer] epic stent 10x 4; right external iliac stent-[employer] Innova 8 x 100 Estimated Blood Loss: 157 Specimen collected: Yes Description of specimen(s) removed: Right femoral plaque Description of surgery: HPI: Patient is a 79-year-old female with atherosclerosis of the northern che[place] vessels with left lower extremity rest pain and severe bilateral multilevel disease. She has totally occluded left common iliacartery from aortic bifurcation downward and severe calcified stenosis of the right common and external iliac arteries. She also has right common femoral artery significant calcified atherosclerosis so an endarterectomy is required therefore a modifier 22 is applied given the additional 1 hour of operative time. She is taken now for right iliac angioplasty and stenting with intravascular lithotripsy and femoral-femoral bypass. Description of procedure: Upon obtaining informed consent and verification correct patient procedure and site the patient was taken to the operating where she was placed under general anesthesia. Shewas then positioned prepped and draped in usual sterile fashion time was performed. Oblique incision was made over the right common femoral artery and Bovie electrocautery used to dissect down through subcutaneous tissue and subcutaneous retractor put in position. Further dissection was then carried down to the femoral sheath which is then incised vertically exposing the common femoral artery. Sharp section was used to dissect proximally up to the inguinal ligament which was then freed along its inferior border and retracted cephalad exposing the distal external iliac artery. We then dissectedmore proximally until we encountered vessel that was soft and clamp oval at which point the vessel was dissected free circumferentially and a right angle used to place a vessel loop. We then dissected distallydown onto the superficial femoral artery which had significant calcified plaque in its proximal segment so we dissected several centimeters under the vessel till we found a soft and clean mobile segment. The vessel was then dissected free circumferentially and a right angle was placed vessel loop. Finally sharp dissection was dissect down on the profundofemoral artery down the secondary branches and right and used to place Vesseloops around each of these individually. Next oblique incision was made over the left common femoral artery and Bovie used to dissect down through the subcutaneous tissue to the level of the femoral sheath. The femoral sheath was then incised vertically exposing the common femoral artery. Sharp dissection was used to dissect the vessel free proximally up to the inguinal ligament and a right angle was used toplace vessel loop at this location. We then dissected down onto the superficialfemoral artery and a right angle to place a vessel loop at a soft portion of thevessel and finally dissection carried down onto the secondary branch of the profunda andeach of these secured with a vessel loop individually. A Moriah tunneler was then used to tunnel subcutaneously between the 2 femoral incisions and the patient was then heparinized allowed to circulate for 3 minutes. Subsequent heparin dosing was then based on ACT results. The right femoral vessels were then occluded with Vesseloops and longitudinal arteriotomy created with 11 blade on the common femoral artery and extended with Gauthier scissors on the superficial femoral artery. We then performed her endarterectomy with satisfactory endpoint distally on the superficial femoral artery and ontothe origin of the profundofemoral artery. Distal endpoints on the SFA and the profunda were then tacked with 7-0 Prolene in interrupted fashion. The lumen was then flushed with heparinized saline leti bovine pericardial patch secured with a 6-0 Prolene in a running fashion. Prior to completing suture line the vessels are backbled after completing the suture line clamps were removed and satisfactory stasis was noted. Next a micropuncture needle and wire were used to access the patch in retrograde fashion and exchanged for micropuncture sheath. Through this a Inside[employer].comson wire was advanced traversing the external and common iliac arteries and ultimately advancing into the aorta. The micropuncturesheath was exchanged for 7 Nauruan Brite tip sheath which is advanced in the position in the mid external iliac artery. From this position hand-injection subtraction angiography of the iliac vessels was obtained confirming position within true lumen and revealing the areas of severe stenosisand calcification. A KMP catheter was then advanced over the Bentson wire and the Bentson wire exchanged fora command 14 wire. Next a shockwave intravascular lithotripsy angioplasty balloon 8 mm x 6 was thenadvanced over the wire and positioned within the common iliac artery. The lithotripsy was then engaged for a total of 300 pulses with subtle repositioning within the vessel to maximize pulse penetration into the calcified sections. After the therapy was completed the balloon was withdrawn and a 6 mm x 80 shockwave intravascular lithotripsy balloon was advanced into the external iliac artery. The lithotripsy was then engaged for total of 400 pulses with subtle repositioning to ensure maximum penetrance into the calcium. The balloon was then deflated withdrawn and repeat angiography revealed sat isfactory response with no significant residual stenosis, no extravasation no dissection. Next a [employer] Epic self-expanding stent 8 x 100 was advanced into the external iliac artery and deployed. This was followed by a [employer] Innova 10 x 40 self-expanding stent advanced into the common iliac artery with satisfactory overlap into the previously placed stent. This was then deployed in position and postdilated with a 8 mm x 4 Medtronic ever flex inflated to nominal and then deflated withdrawn. Finally the external iliac artery stent was postdilated with a 6 mm x 80 Medtronic ever flex inflated and nominal and then deflated withdrawn. Completion angiography revealed satisfa ctory resolution of the areas of stenosis with significant caliber gain and no extravasation or dissection. Wires and sheath were then withdrawn and the femoral vessels reoccluded with Vesseloops. The puncture site in the patch was then extended with Gauthier scissors a satisfactory length to perform our bypass anastomosis. The cadaver femoral-popliteal artery had been thawed per salesperson sheet music's instructions and was then beveled to match the arteriotomy. Anastomosis performed using 6-0 Prolene in arunning fashion. After completing the suture line the vessels were back flushed into the graft and then the bypassoccluded with an atraumatic clamp. Once the femoral vessels were released satisfactory stasis was noted the suture line as well as all of the sidebranches. The graft was then marked to maintain orientation and secured to the tunneler and pulled through the contralateral incision. The left femoral vessels were then occluded with Vesseloops and longitudinal arteriotomy created with an11 blade on the distal common femoral artery and extended with Gauthier scissors on the profundofemoral artery. There was mild plaque in the distal common femoral artery which did not cause any significant stenosis in the profundofemoral artery was widely patent with no significant atherosclerosis. The graft was then cut the length and beveled to match the arteriotomy and anastomosis performed usinga 6-0 Prolene in a running fashion. Prior to complete suture line the graft was flushed and the vessel was backbled and after completing the suture line the clamps removed with satisfactory stasis noted. Outflow vessels were interrogated with Doppler and found to be patent with low resistance signaland there is a palpable pulse within the bypass graft and beyond the anastomosis. The inflow vessels likewise had appropriate signals and significant improved pulse from prior to the iliac intervention. Heparin was then reversed with protamine attention turned to the sartorius flaps. Bovie wasused to dissect lateral to the right femoral vessels to the level the fascia which was then incised exposing the anterior surface of the sartorius muscle. The fascia incision then elongated toward the anterior superior iliac spine and the sartorius muscle mobilized along its lateral edge up to the insertion and the ASIS. The insertion was then divided with Bovie and the muscle reflected medially to cover the femoral vessels and the bypass graft. The sartorius was then secured in position with a 2-0 Vicryl in interrupted fashion. Finally dissection of the left sartorius flap was undertaken with Bovie used to dissect to the fascia lateral to the femoral vessels. The fascia was then incised exposingthe anterior surface of the sartorius muscle and then extending toward the ASIS. The insertion was then divided with Bovie and the muscle mobilized along its lateral edge. This was then reflected medially to cover for the femoral vessels and the bypass graft and then secured in position with a 2-0 V icryl. The incision was then closed with 3-0 Vicryl followed by 4 Monocryl andPrineo for the skin. Adaptic was then placed over the Prineo and Prevena closedincisional wound vacs were applied. The patient was then taken to the recovery room with anticipate admission to the intensive care unit for he modynamic and vascular monitoring. Surgical Findings: See above Complications Complications: No 11/17/24 2800 Cosigner Signature (if applicable): CC: Dr. Crow Dc MD; Dr. Jolanta Grant MD~ Signed [facility]05-27-2025 Consult note [facility] Medical Records Department [address] [place] [address] Anesthesia Postop Eval II 11/17/24 1406 MR#: [id number] Acct: [id number] Name: NELLI RIVERS Rep #:[id number] : 1945 79 From: Haven gustafson WOOD TILE INSTALLER PCP: Dr. Jolanta Grant MD Status:ADM IN Y Race: C Location: ICU CVICU 203-1 Anesthesia Postop Eval I Sum Postop Eval Completion status Anesthesia document: Postop Eval 1 completed: Yes Anesthesia Postop Eval I Summary Anesthesia Postop Eval I Summary: Anesthesia Postop Eval I: Assessment Summary Airway patent Yes 11/17/24 14:01 [email or web address] [email or web address] Spontaneous unlabored Yes 11/17/24 14:01 WOOD [email or web address] [email or web address] respirations Mental status Awake,Calm, 11/17/24 14:01 WOOD TILE [email or web address] Confused nausea No 11/17/24 14:01 WOOD TILE [email or web address] Vomiting No 11/17/24 14:01 WOOD TILE [email or web address] Anesthesia Postop Eval I: Fluid Summary Crystalloid volume administer 2,500 11/17/24 14:01 WOOD [email or web address] [email or web address] (ml) Colloids volume administered ( ml) Blood Product volume administered (ml) Total IV fluid infused 2,500 11/17/24 14:01 WOOD TILE [email or web address] Anesthesia Postop Eval I: Summary Notes Anesthesia Complication No 11/17/24 14:01 WOOD TILE [email or web address] Anesthesia Complication Comment: Post-operative progress note Anesthesia: Postop Eval II Evaluation Mental status: Awake and Calm Pain Level: 0 nausea: No Vomiting: No Complications Anesthesia Complication: No 11/17/24 1407 raina WOOD TILE INSTALLER> Date _ Haven Mcneil WOOD TILE INSTALLER Cosigner Signature: Date CC: ~ Signed [facility]05-27-2025 Consult note [facility] Medical Records Department [address] [place] [address] Anesthesia Postop Eval I 11/17/24 1400 MR#: [id number] Acct: [id number] Name: NELLI RIVERS Rep #:[id number] : 1945 79 From: Lul Hood CRNA PCP: Dr. Jolanta Grant MD Status:ADM IN Y Race: C Location: ICU [facility] Anesthesia: Postop Eval I Current Vital Signs Temperature: 97.2 F Pulse Rate: 67 Blood Pressure: 133/54 Respiratory Rate: 20 Pulse Ox: 99 Oxygen Delivery Method: Room Air Assessment Airway patent: Yes Spontaneous unlabored respirations: Yes Mental status: Awake, Calm and Confused nausea: No Vomiting: No Anesthesia Complication: No Fluid Hydration Crystalloid volume administer (ml): 2,500 Total IV fluid infused: 2,500 Progress Note Anesthesia document: Postop Eval 1 completed: Yes 11/17/24 1401 y WOOD TILE INSTALLER> Date _ Lul Hood WOOD TILE INSTALLER Cosigner Signature: Date CC: ~ Signed [facility]05-27-2025 History and physical note Author Crow Dc [facility] Note Date/Time November 17, 2024 7:29a m [facility] Medical Records Department [address] [place] [address] History & Physical Exam 11/17/24 0729 MR#: [id number] Acct: [id number] Name: NELLI RIVERS Rep #:[id number] : 1945 79 From: Crow Dc MD PCP: Dr. Jolanta Grant MD Status:ADM IN Location: [facility] AC-TB A-1 History and Physical Allergies No Known Allergies Allergy (Verified 10/18/24 11:33) Medications ?Medication ?Instructions ?Recorded ?Confirmed ?Type aspirin 81 mg chewable tablet 81 mg PO DAILY@0800 09/27/16 10/22/24 Hi story nitroglycerin 0.4 mg sublingual 0.4 mg sublingual Q5-15M PRN chest 10/16 0 10/22/24 Rx tablet pain #25 tabs clopidogrel 75 mg tablet 75 mg PO DAILY #90 tabs 10/21/23 5 Rx potassium chloride 10 mEq 20 meq (2 x 10 mEq) PO DAILY #180 10/22/24 Rx capsule,extended release caps vitamin D3 125 mcg (5,000 1 cap PO DAILY 12/06/23 10/22/24 History unit)-vitamin K2 100 mcg capsule carvedilol 12.5 mg tablet (Coreg) 12.5 mg PO BID #180 tabs 03/16/24 Rx furosemide 40 mg tablet 40 mg PO Q OTHER DAY #90 tabs 03/16/24 0 10/22/24 Rx lisinopril 20 mg tablet 20 mg PO BID #180 tabs 03/16/24 10/22/24 Rx magnesium citrate 100 mg capsule 100 mg PO QDAY 07/02/24 10/22/24 History Is last menstrual period known: No Post menopausal: Yes Patient : No Have you fallen in the past year?: Yes PFSH Medical History PAD (peripheral artery disease) Atrioventricular node dysfunction Sinus node dysfunction 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) Nicotine dependence Essential (primary) hypertension Ischemic cardiomyopathy Chronic systolic congestive heart failure Atrioventricular block Old myocardial infarction Atherosclerosis of coronary artery 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 Tobacco abuse Psoriasis Hypercholesteremia Syncope and collapse Hyperlipemia Hypokalemia History of syncope History of sinus bradycardia Surgical History History of electrophysiologic study (03/07/12) Biventricular ICD (implantable cardioverter-defibrillator) in place (08/04/20) History of coronary artery stent placement (03/06/12) H/O coronary artery bypass surgery (04/28/97) Saphenous vein graft to CFX saphenous vein graft to RCA H/O tubal ligation History of left heart catheterization (06/27/20) Family History Father CAD (coronary artery disease) Myocardial infarctionBrother CAD (coronary artery disease) Myocardial infarctionMother Cancer Social History household members: spouse and family housing: house Smoking Status: Heavy Smoker (>10/day) second hand exposure: Yes alcohol intake: current alcohol intake frequency: holidays/special occasions only substance use type: does not use caffeine: Yes Type: carbonated beverages Number of servings: 4 what type of physical activity do you participate in: none seatbelt use: always do you feel safe at home: Yes HPI HPI HPI: NELLI RIVERS, is a 78 F who presents to the office today for evaluation of left lower extremity progressive claudication now very short distance and limiting mobility in her home. She has had some degree of symptoms for about 7 years, though things have worsened significantly over the past year. No foot wounds or rest pain, no discrete time when symptoms abruptly worsened. No prior lower extremity revascularization procedures. ROS General General: No weight change, appetite, fatigue, colon cancer, breast cancer or weakness HEENT HEENT: No difficulty swallowing, eye injury, eye surgery, swollen glands or hoarseness Endo Endocrine: No thyroid disease, diabetes mellitus, thyroid cancer, Hair loss, heat intolerance or cold intolerance Skin Skin: No rash or changing moles Musc Musculoskeletal: No back problems, arthritis, rheumatoid arthritis, gout or joint pain Cardio Cardiovascular: Yes pacemaker, heart disease, atrial fibrillation, high blood pressure, heart attack, heart stent, palpitations and shortness of breath with exertion; No murmur or chest pain Psych Psychiatric: No depression, anxiety or hearing voices Resp Respiratory: No shortness of breath, No sleep apnea, No cough, No COPD, No asthma, No emphysema and No wheezing Gastro Gastrointestinal: No abdominal pain, No nausea or vomiting, No diarrhea, No constipation, No blood in stool, No acid reflux, No hemorrhoids, No ulcers, No gallbladder problem and No black,tarry stools Eric Hematologic: No blood thinners, No blood disorders, No bleeding, No anemia and No blood clots Neuro Neurologic: No system reviewed and no additional complaints, except as documented, No as per HPI, No abnormal gait, No abnormal hearing, No abnormal movements, No abnormal speech, No behavioral changes, Yes burning sensations, Noconfusion, No convulsions, Yes disequilibrium, No dizziness, Yes localized weakness, No frequent falls, No headache(s), Yes lack of coordination, No loss of vision, No memory loss, Yes numbness, No other visual disturbances, Yes radicular pain, No restless legs, No sensory deficit, No syncope, Yes tingling, No tremor(s), No weakness and No other Exam Const General: cooperative, healthy appearing, comfortable, no acute distress and welldeveloped Nutritional Appearance: well nourished Orientation: alert, awake and oriented x3 HENMT Head: normocephalic and atraumatic Ears: hearing grossly normal bilaterally Nose: external nose normal Eyes General: appearance normal, both eyes and all related structures EOM: EOM intact bilaterally Neck Neck: normal visual inspection, full ROM, no lymphadenopathy and trachea midline Thyroid: thyroid normal Lymphatic: no lymphadenopathy noted Resp Effort & Inspection: normal respiratory effort, able to speak in complete sentences, symmetric chest movement, no audible wheezes, not labored, no stridorand no use of accessory muscles Auscultation: clear to auscultation bilaterally Cardio Rate: regular rate Rhythm: regular rhythm Heart Sounds: no murmurs Bruits: no carotid bruits Pulses: brachial pulses present, radial pulses present, popliteal pulses not present, posterior tibial pulses not present and dorsalis pedis pulses not present Skin General: no rashes or lesions noted and no erythema Wounds: no wounds Neuro Cranial Nerves: CN's II-XI intact bilaterally and EOM intact bilaterally Speech: speech normal Gait: normal gait Motor: strength 5/5 throughout Sensory Exam: no sensory deficits noted Extremities Pulses: Diminished: Right Dorsalis Pedis Pulse, Left Dorsalis Pedis Pulse, RightPosterior Tibial Pulse and Left Posterior Tibial Pulse Lower Extremity Edema: None: Bilateral Psych Appearance: grossly normal and well kempt Mental Status: mental status grossly normal Mood: congruent mood Speech and Movement: speech and movement normal Thought Content: normal Judgment: judgment good Coding Level of Care Code Off vis,new,level 4 Diagnoses Atherosclerosis of [place] arteries of extremities with intermittent claudication, left leg I70.212 Assessment and Plan Assessment and Plan (1) Atherosclerosis of [place] arteries of extremities with intermittent claudication, left leg: Status: Chronic Comment: CTA images reviewed, left common iliac occlusion, left common femoral moderate stenosis, left SFA occlusion with popliteal reconstitution right common/externaliliac stenosis with calcification, right common femoral calcified severe stenosis, right SFA severe diffuse stenosis Plan: -bilateral femoral endart, right iliac Shockwave/stent, right to left fem-fem with cadaver, sartorius flaps 11/17/24 0729 <Electronically signed by Crow Dc MD> Cosigner Signature (if applicable): CC: Dr. Crow Dc MD; Dr. Jolanta Grant MD~ Signed [facility] Work Phone: [phone]) 214-376705-27-2025 Consult note Author Tobin [facility] Note Date/Time November 17, 2024 7:02a [facility] Medical Records Department [address] [place] [address] Pre-Anesthesia Evaluation 11/17/24 0652 MR#: [id number] Acct: [id number] Name: NELLI RIVERS Rep #:[id number] : 1945 79 From: Tobin Roth MD PCP: Dr. Jolanta Grant MD Status:ADM IN Y Race: C Location: [place] [address] ASA Classification* ASA Classification ASA Classification: 3 Assessment & Plan Anesthesia* Anesthesia Assessment Anesthesia Assessment: Discussed sedation and/or anesthesia options, risks, benefits, and alternatives with patient/parents/legal guardian/POA. Questions invited. The patient/parents/legal guardian/POA seems to understand and agrees to proceedwith anesthesia plan. Reviewed the physical assessment, medical history, allergy history and patient home medications list prior to surgery/procedure/anesthetic and documented any changes. Performed airway and anesthesia risk assessments. Anesthesia Type Anesthesia Type: General History Source History Obtained from:: Patient and Chart Anesthesia Focused Assessment* Temperature: 97.4 F Pulse Rate: 58 Blood Pressure: 109/67 Respiratory Rate: 16 Pulse Ox: 96 Oxygen Delivery Method: Room Air Airway Assessment Mouth opens: >3 cm Mallampati Score: III Teeth Condition: Chipped/Broken (Multiple broken and chipped teeth.) and Missing(Multiple missing teeth. Rest are tight.) Neck Range of motion (ROM): Full ROM Focused Labs Anesthesia Preop lab: CBC WBC 7.9 K/mm3 (4.4-11.0) 10/18/24 11:39 10/18/24 RBC 4.12 M/mm3 (4.2-5.4) L 10/18/24 11:39 10/18/24 Hgb 13.0 g/dL (12.0-15.0) 10/18/24 11:39 10/18/24 Hct 37.6 % (37-47) 10/18/24 11:39 10/18/24 Plt Count 170 K/mm3 (150-450) 10/18/24 11:39 10/18/24 CHEMISTRY Potassium 4.4 mmol/L (3.3-5.1) 10/18/24 11:39 10/18/24 Sodium 138 mmol/L (133-145) 10/18/24 11:39 10/18/24 Magnesium 2.1 mg/dL (1.6-2.6) 04/29/23 11:50 04/29/23 BUN 22 mg/dL (4-19) H 10/18/24 11:39 10/18/24 Creatinine 1.16 mg/dL (0.70-1.20) 10/18/24 11:39 10/18/24 Glucose 120 mg/dL (70-99) H 10/18/24 11:39 10/18/24 TSH 2.18 uIU/mL (0.358-3.74) 02/09/19 15:49 COAG PT 13.1 SECONDS (11.7-14.9) 10/18/24 11:39 Pre-Assessment Diagnosis/Proposed Procedure Planned Operative Procedure(s): (B) Bilateral Femoral Endarterectomy, Fem-Fem Bypass, Right Iliac angioplasty stent, Bilateral Sartorius Flaps Anesthesia History 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 When Was Last Pacemaker Check QUESTION #4 FULL TEXT: You/Your Family Experience fever (hyperthermia) with Anesthesia Last Oral Intake Last Oral intake: Last Oral Intake NPO since 20:00 11/17/24 06:22 Meds taken in AM with sips of Yes 11/17/24 06:22 water? 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 Female Yes 11/02/24 14:00 HX of Motion Sickness No 11/02/24 14:00 HX of N/V After Surgery No 11/02/24 14:00 Non-Smoker No 11/02/24 14:00 Duration of Surgery greater Yes 11/02/24 14:00 than 60 minutes Number of Risk Factors 2 11/02/24 14:00 PONV Score Moderate Risk 11/02/24 14:00 Height & Weight Height & Weight: Anesthesia: Height & Weight Height 5 ft 3 in 11/17/24 06:22 Weight: 62.6 kg 11/17/24 06:22 Body Mass Index (BMI) 24.4 11/17/24 06:22 Respiratory Assessment Respiratory Assessment - 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 Has anyone observed you stop No 11/02/24 14:00 breathing during sleep? STOP Results Negative 11/02/24 14:00 QUESTION #5 FULL TEXT : Do you snore loudly (louder than talking or can be heard through closed doors)? 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 Tobacco Use Cigarettes 12/13/20 14:23 Smoking Status Heavy Smoker (>10/day) 11/12/24 15:22 Hx Tobacco Use Yes 11/02/24 14:00 Years Smoking Packs Smoked per Day Smoking Cessation Date was Yes - quit smoking within 15 11/02/24 14:00 within the last 15 years years Hx Smoking Cessation Date Hx Smoking Cessation Yes: 10-18-24 11/12/24 15:22 Counseling Any additional information?: Yes Smoking Status: Current every day smoker (Patient did not smoke today.) Hematologic Medial History Hematologic Hx - 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 Specify any problems Hx of Preganancy in last 3 No 11/02/24 14:00 Months Nurse Filling Out Transfusion JZOLLINGE 11/02/24 14:00 & Questions: Date: 11/02/24 11/02/24 14:00 Time: 14:03 11/02/24 14:00 Patient unable to answer at this time (ie. 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 Hx Now No 11/02/24 14:00 Gestational Age (in weeks): EDC: Hx Hx Para Hx Section SAB No 11/02/24 14:00 Active Medications Active Medications: Current Medications Generic Name Dose Route Start Last Admin Trade Name Freq PRN Reason Stop Dose Admin Cefazolin Sodium 2 gm/ Sodium 110 mls @ 150 mls/hr 11/17/24 07:30 Chloride IV 11/17/24 08:13 INTRAOP ONE Lactated Ringer's 1,000 mls @ 15 mls/hr 11/17/24 06:00 11/17/24 06:20 IV 15 mls/hr .Q48H LATA Administration PFSH Medical History History of echocardiogram History of stress test Cardiology follow-up encounter Wears glasses Gastric reflux Smoker History of pacemaker Hypertension PAD (peripheral artery disease) Atrioventricular node dysfunction Sinus node dysfunction 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) Nicotine dependence Essential (primary) hypertension Ischemic cardiomyopathy Chronic systolic congestive heart failure Atrioventricular block Old myocardial infarction Atherosclerosis of coronary artery 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 Tobacco abuse Psoriasis Hypercholesteremia Syncope and collapse Hyperlipemia Hypokalemia History of syncope History of sinus bradycardia Home Medications ?Medication ?Instructions ?Recorded ?Last Taken ?Type aspirin 81 mg chewable tablet 81 mg PO DAILY@0800 bloo d thinner 09/27/16 11/17/24 05:00 History nitroglycerin 0.4 mg sublingual 0.4 mg sublingual Q5-1 5M PRN chest 10/16/22 Unknown Rx tablet pain #25 tabs potassium chloride 10 mEq 20 meq (2 x 10 mEq) PO DAILY 10/21/23 11/16/24 Rx capsule,extended release supplement #180 caps vitamin D3 125 mcg (5,000 1 cap PO DAILY supplement 11/16/24 History unit)-vitamin K2 100 mcg capsule carvedilol 12.5 mg tablet (Coreg) 12.5 mg PO BID bp #1 80 tabs 03/16/24 11/17/24 05:00 Rx lisinopril 20 mg tablet 20 mg PO BID bp #180 tabs 11/16/24 Rx clopidogrel 75 mg tablet 75 mg PO DAILY blood thinner #90 10/27/24 11/17/24 05:00 Rx tabs atorvastatin 80 mg tablet 80 mg PO QHS cholesterol 06/17 Unknown History calcium carbonate 500 1 - 2 tab PO .as directed VT N 11/02/24 Unknown History mg-simethicone 20 mg chewable reflux tablet furosemide 40 mg tablet 40 mg PO DAILY dieretic 10/2211/16/24 History magnesium sulfate 1 ea topical 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 11/02/24 Unknown History oxycodone 5 mg tablet 5 mg PO Q6H PRN pain 5 days #20 11/12/24 11/16/24 Rx tabs Allergy/AdvReac Type Severity Reaction Status Date / Time No Known Allergies Allergy Verified 11/17/24 06:15 Family History Father CAD (coronary artery disease) Myocardial infarction Brother CAD (coronary artery disease) Myocardial infarction Mother Cancer Surgical History History of electrophysiologic study (03/07/12) Biventricular ICD (implantable cardioverter-defibrillator) in place (08/04/20) History of coronary artery stent placement (03/06/12) H/O coronary artery bypass surgery (04/28/97) Saphenous vein graft to CFX saphenous vein graft to RCA H/O tubal ligation History of left heart catheterization (06/27/20) Social History household members: spouse and family housing: house Smoking Status: Heavy Smoker (>10/day) second hand exposure: Yes alcohol intake: current alcohol intake frequency: holidays/special occasions only substance use type: does not use caffeine: Yes Type: carbonated beverages Number of servings: 4 what type of physical activity do you participate in: none seatbelt use: always do you feel safe at home: Yes Review of Systems (Anesthesia) ROS Narrative System reviewed and no additional complaints, except as documented. 11/17/24701 <Electronically signed by Tobin ott MD> Date _ Tobin Roth MD Cosigner Signature: Date CC: ~ Signed [facility] Work Phone: [phone]) 922-239905-27-2025 History and physical note [facility] Medical Records Department [address] [place] [address] History & Physical Exam 11/17/24728 MR#: [id number] Acct: [id number] Name: NELLI RIVERS Rep #:[id number] : 1945 79 From: Crow Dc MD PCP: Dr. Jolanta Grant MD Status:ADM IN Location: [facility] A-1 History and Physical Allergies No Known Allergies Allergy (Verified 10/18/24 11:33) Medications ?Medication ?Instructions ?Recorded ?Confirmed ?Type aspirin 81 mg chewable tablet 81 mg PO DAILY@0800 09/27/16 10/22/24 Hi story nitroglycerin 0.4 mg sublingual 0.4 mg sublingual Q5-15M PRN chest 10/16 0 10/22/24 Rx tablet pain #25 tabs clopidogrel 75 mg tablet 75 mg PO DAILY #90 tabs 10/21/23 5 Rx potassium chloride 10 mEq 20 meq (2 x 10 mEq) PO DAILY #180 10/22/24 Rx capsule,extended release caps vitamin D3 125 mcg (5,000 1 cap PO DAILY 12/06/23 10/22/24 History unit)-vitamin K2 100 mcg capsule carvedilol 12.5 mg tablet (Coreg) 12.5 mg PO BID #180 tabs 03/16/24 Rx furosemide 40 mg tablet 40 mg PO Q OTHER DAY #90 tabs 03/16/24 0 10/22/24 Rx lisinopril 20 mg tablet 20 mg PO BID #180 tabs 03/16/24 10/22/24 Rx magnesium citrate 100 mg capsule 100 mg PO QDAY 07/02/24 10/22/24 History Is last menstrual period known: No Post menopausal: Yes Patient : No Have you fallen in the past year?: Yes PFSH Medical History PAD (peripheral artery disease) Atrioventricular node dysfunction Sinus node dysfunction 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) Nicotine dependence Essential (primary) hypertension Ischemic cardiomyopathy Chronic systolic congestive heart failure Atrioventricular block Old myocardial infarction Atherosclerosis of coronary artery 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 Tobacco abuse Psoriasis Hypercholesteremia Syncope and collapse Hyperlipemia Hypokalemia History of syncope History of sinus bradycardia Surgical History History of electrophysiologic study (03/07/12) Biventricular ICD (implantable cardioverter-defibrillator) in place (08/04/20) History of coronary artery stent placement (03/06/12) H/O coronary artery bypass surgery (04/28/97) Saphenous vein graft to CFX saphenous vein graft to RCA H/O tubal ligation History of left heart catheterization (06/27/20) Family History Father CAD (coronary artery disease) Myocardial infarctionBrother CAD (coronary artery disease) Myocardial infarctionMother Cancer Social History household members: spouse and family housing: house Smoking Status: Heavy Smoker (>10/day) second hand exposure: Yes alcohol intake: current alcohol intake frequency: holidays/special occasions only substance use type: does not use caffeine: Yes Type: carbonated beverages Number of servings: 4 what type of physical activity do you participate in: none seatbelt use: always do you feel safe at home: Yes HPI HPI HPI: NELLI RIVERS, is a 78 F who presents to the office today for evaluation of left lower extremity progressive claudication now very short distance and limiting mobility in her home. She has had some degree of symptoms for about 7 years, though things have worsened significantly over the past year. No foot wounds or rest pain, no discrete time when symptoms abruptly worsened. No prior lower extremity revascularization procedures. ROS General General: No weight change, appetite, fatigue, colon cancer, breast cancer or weakness HEENT HEENT: No difficulty swallowing, eye injury, eye surgery, swollen glands or hoarseness Endo Endocrine: No thyroid disease, diabetes mellitus, thyroid cancer, Hair loss, heat intolerance or cold intolerance Skin Skin: No rash or changing moles Musc Musculoskeletal: No back problems, arthritis, rheumatoid arthritis, gout or joint pain Cardio Cardiovascular: Yes pacemaker, heart disease, atrial fibrillation, high blood pressure, heart attack, heart stent, palpitations and shortness of breath with exertion; No murmur or chest pain Psych Psychiatric: No depression, anxiety or hearing voices Resp Respiratory: No shortness of breath, No sleep apnea, No cough, No COPD, No asthma, No emphysema andNo wheezing Gastro Gastrointestinal: No abdominal pain, No nausea or vomiting, No diarrhea, No constipation, No blood in stool, No acid reflux, No hemorrhoids, No ulcers, No gallbladder problem and No black,tarry stools Eric Hematologic: No blood thinners, No blood disorders, No bleeding, No anemia and No blood clots Neuro Neurologic: No system reviewed and no additional complaints, except as documented, No as per HPI, No abnormal gait, No abnormal hearing, No abnormal movements, No abnormal speech, No behavioral changes, Yes burning sensations, Noconfusion, No convulsions, Yes disequilibrium, No dizziness, Yes localized weakness, No frequent falls, No headache(s), Yes lack of coordination, No loss of vision, No memory loss, Yes numbness, No other visual disturbances, Yes radicular pain, No restless legs, No sensory deficit, No syncope, Yes tingling, No tremor(s), No weakness and No other Exam Const General: cooperative, healthy appearing, comfortable, no acute distress and welldeveloped Nutritional Appearance: well nourished Orientation: alert, awake and oriented x3 HENMT Head: normocephalic and atraumatic Ears: hearing grossly normal bilaterally Nose: external nose normal Eyes General: appearance normal, both eyes and all related structures EOM: EOM intact bilaterally Neck Neck: normal visual inspection, full ROM, no lymphadenopathy and trachea midline Thyroid: thyroid normal Lymphatic: no lymphadenopathy noted Resp Effort & Inspection: normal respiratory effort, able to speak in complete sentences, symmetric chest movement, no audible wheezes, not labored, no stridorand no use of accessory muscles Auscultation: clear to auscultation bilaterally Cardio Rate: regular rate Rhythm: regular rhythm Heart Sounds: no murmurs Bruits: no carotid bruits Pulses: brachial pulses present, radial pulses present, popliteal pulses not present, posterior tibial pulses not present and dorsalis pedis pulses not present Skin General: no rashes or lesions noted and no erythema Wounds: no wounds Neuro Cranial Nerves: CN's II-XI intact bilaterally and EOM intact bilaterally Speech: speech normal Gait: normal gait Motor: strength 5/5 throughout Sensory Exam: no sensory deficits noted Extremities Pulses: Diminished: Right Dorsalis Pedis Pulse, Left Dorsalis Pedis Pulse, RightPosterior Tibial Pulse and Left Posterior Tibial Pulse Lower Extremity Edema: None: Bilateral Psych Appearance: grossly normal and well kempt Mental Status: mental status grossly normal Mood: congruent mood Speech and Movement: speech and movement normal Thought Content: normal Judgment: judgment good Coding Level of Care Code Off vis,new,level 4 Diagnoses Atherosclerosis of [place] arteries of extremities with intermittent claudication, left leg I70.212 Assessment and Plan Assessment and Plan (1) Atherosclerosis of [place] arteries of extremities with intermittent claudication, left leg: Status: Chronic Comment: CTA images reviewed, left common iliac occlusion, left common femoral moderate stenosis, left SFA occlusion with popliteal reconstitution right common/externaliliac stenosis with calcification, rightcommon femoral calcified severe stenosis, right SFA severe diffuse stenosis Plan: -bilateral femoral endart, right iliac Shockwave/stent, right to left fem-fem with cadaver, sartorius flaps 11/17/24 07 Cosigner Signature (if applicable): CC: Dr. Crow Dc MD; Dr. Jolanta Grant MD~ Signed [facility]05-27-2025 [facility] Medical Records Department [address] [place] [id number] History Physical Exam 11/17/24728 MR#: [id number] Acct: [id number] Name: NELLI RIVERS Rep #: [id number] : 1945 79 From: Crow Dc MD PCP: Dr. Jolanta Grant MD Status:ADM IN Location: [place] [address] History and Physical Allergies No Known Allergies Allergy (Verified 10/18/24 11:33) Medications ???Medication ???Instructions ???Recorded ???Confirmed ???Type aspirin 81 mg chewable tablet 81 mg PO DAILY@0800 09/27/16 10/22/24 History nitroglycerin 0.4 mg sublingual 0.4 mg sublingual Q5-15M PRN chest 10/16/22 Rx tablet pain #25 tabs clopidogrel 75 mg tablet 75 mg PO DAILY #90 tabs 10/21/23 10/22/24 Rx potassium chloride 10 mEq 20 meq (2 x 10 mEq) PO DAILY #180 10/21/23 5 Rx capsule,extended release caps vitamin D3 125 mcg (5,000 1 cap PO DAILY 12/06/23 10/22/24 History unit)-vitamin K2 100 mcg capsule carvedilol 12.5 mg tablet (Coreg) 12.5 mg PO BID #180 tabs 03/16/24 10/22/24 Rx furosemide 40 mg tablet 40 mg PO Q OTHER DAY #90 tabs 03/16/24 10/22/24 Rx lisinopril 20 mg tablet 20 mg PO BID #180 tabs 03/16/24 10/22/24 Rx magnesium citrate 100 mg capsule 100 mg PO QDAY 07/02/24 10/22/24 History Is last menstrual period known: No Post menopausal: Yes Patient : No Have you fallen in the past year?: Yes PFSH Medical History PAD (peripheral artery disease) Atrioventricular node dysfunction Sinus node dysfunction 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) Nicotine dependence Essential (primary) hypertension Ischemic cardiomyopathy Chronic systolic congestive heart failure Atrioventricular block Old myocardial infarction Atherosclerosis of coronary artery 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 Tobacco abuse Psoriasis Hypercholesteremia Syncope and collapse Hyperlipemia Hypokalemia History of syncope History of sinus bradycardia Surgical History History of electrophysiologic study (03/07/12) Biventricular ICD (implantable cardioverter-defibrillator) in place (08/04/20) History of coronary artery stent placement (03/06/12) H/O coronary artery bypass surgery (04/28/97) Saphenous vein graft to CFX saphenous vein graft to RCA H/O tubal ligation History of left heart catheterization (06/27/20) Family History Father CAD (coronary artery disease) Myocardial infarctionBrother CAD (coronary artery disease) Myocardial infarctionMother Cancer Social History household members: spouse and family housing: house Smoking Status: Heavy Smoker (>10/day) second hand exposure: Yes alcohol intake: current alcohol intake frequency: holidays/special occasions only substance use type: does not use caffeine: Yes Type: carbonated beverages Number of servings: 4 what type of physical activity do you participate in: none seatbelt use: always do you feel safe at home: Yes HPI HPI HPI: NELLI RIVERS, is a 78 F who presents to the office today for evaluation of left lower extremity progressive claudication now very short distance and limiting mobility in her home. She has had some degree of symptoms for about 7 years, though things have worsened significantly over the past year. No foot wounds or rest pain, no discrete time when symptoms abruptly worsened. No prior lower extremity revascularization procedures. ROS General General: No weight change, appetite, fatigue, colon cancer, breast cancer or weakness HEENT HEENT: No difficulty swallowing, eye injury, eye surgery, swollen glands or hoarseness Endo Endocrine: No thyroid disease, diabetes mellitus, thyroid cancer, Hair loss, heat intolerance or cold intolerance Skin Skin: No rash or changing moles Musc Musculoskeletal: No back problems, arthritis, rheumatoid arthritis, gout or joint pain Cardio Cardiovascular: Yes pacemaker, heart disease, atrial fibrillation, high blood pressure, heart attack, heart stent, palpitations and shortness of breath with exertion; No murmur or chest pain Psych Psychiatric: No depression, anxiety or hearing voices Resp Respiratory: No shortness of breath, No sleep apnea, No cough, No COPD, No asthma, No emphysema and No wheezing Gastro Gastrointestinal: No abdominal pain, No nausea or vomiting, No diarrhea, No constipation, No blood in stool, No acid reflux, No hemorrhoids, No ulcers, No gallbladder problem and No black,tarry stools Eric Hematologic: No blood thinners, No blood disorders, No bleeding, No anemia and No blood clots Neuro Neurologic: No system reviewed and no additional complain (more content not included)...[facility]05-27-2025 Consult note [facility] Medical Records Department [address] [place] [address] Pre-Anesthesia Evaluation 11/17/24 0652 MR#: [id number] Acct: [id number] Name: NELLI RIVERS Rep #:[id number] : 1945 79 From: Tobin Roth MD PCP: Dr. Jolanta Grant MD Status:ADM IN Y Race: C Location: [place] [address] ASA Classification* ASA Classification ASA Classification: 3 Assessment & Plan Anesthesia* Anesthesia Assessment Anesthesia Assessment: Discussed sedation and/or anesthesia options, risks, benefits, and alternatives with patient/parents/legal guardian/POA. Questions invited. The patient/parents/legal guardian/POA seems to understand and agrees to proceedwith anesthesia plan. Reviewed the physical assessment, medical history, allergy history and patient home medications list prior to surgery/procedure/anesthetic and documented any changes. Performed airway and anesthesia risk assessments. Anesthesia Type Anesthesia Type: General History Source History Obtained from:: Patient and Chart Anesthesia Focused Assessment* Temperature: 97.4 F Pulse Rate: 58 Blood Pressure: 109/67 Respiratory Rate: 16 Pulse Ox: 96 Oxygen Delivery Method: Room Air Airway Assessment Mouth opens: >3 cm Mallampati Score: III Teeth Condition: Chipped/Broken (Multiple broken and chipped teeth.) and Missing(Multiple missing teeth. Rest are tight.) Neck Range of motion (ROM): Full ROM Focused Labs Anesthesia Preop lab: CBC WBC 7.9 K/mm3 (4.4-11.0) 10/18/24 11:39 10/18/24 RBC 4.12 M/mm3 (4.2-5.4) L 10/18/24 11:39 10/18/24 Hgb 13.0 g/dL (12.0-15.0) 10/18/24 11:39 10/18/24 Hct 37.6 % (37-47) 10/18/24 11:39 10/18/24 Plt Count 170 K/mm3 (150-450) 10/18/24 11:39 10/18/24 CHEMISTRY Potassium 4.4 mmol/L (3.3-5.1) 10/18/24 11:39 10/18/24 Sodium 138 mmol/L (133-145) 10/18/24 11:39 10/18/24 Magnesium 2.1 mg/dL (1.6-2.6) 04/29/23 11:50 04/29/23 BUN 22 mg/dL (4-19) H 10/18/24 11:39 10/18/24 Creatinine 1.16 mg/dL (0.70-1.20) 10/18/24 11:39 10/18/24 Glucose 120 mg/dL (70-99) H 10/18/24 11:39 10/18/24 TSH 2.18 uIU/mL (0.358-3.74) 02/09/19 15:49 COAG PT 13.1 SECONDS (11.7-14.9) 10/18/24 11:39 Pre-Assessment Diagnosis/Proposed Procedure Planned Operative Procedure(s): (B) Bilateral Femoral Endarterectomy, Fem-Fem Bypass, Right Iliac angioplasty stent, Bilateral Sartorius Flaps Anesthesia History 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 When Was Last Pacemaker Check QUESTION #4 FULL TEXT: You/Your Family Experience fever (hyperthermia) with Anesthesia Last Oral Intake Last Oral intake: Last Oral Intake NPO since 20:00 11/17/24 06:22 Meds taken in AM with sips of Yes 11/17/24 06:22 water? 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 Female Yes 11/02/24 14:00 HX of Motion Sickness No 11/02/24 14:00 HX of N/V After Surgery No 11/02/24 14:00 Non-Smoker No 11/02/24 14:00 Duration of Surgery greater Yes 11/02/24 14:00 than 60 minutes Number of Risk Factors 2 11/02/24 14:00 PONV Score Moderate Risk 11/02/24 14:00 Height & Weight Height & Weight: Anesthesia: Height & Weight Height 5 ft 3 in 11/17/24 06:22 Weight: 62.6 kg 11/17/24 06:22 Body Mass Index (BMI) 24.4 11/17/24 06:22 Respiratory Assessment Respiratory Assessment - 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 Has anyone observed you stop No 11/02/24 14:00 breathing during sleep? STOP Results Negative 11/02/24 14:00 QUESTION #5 FULL TEXT : Do you snore loudly (louder than talking or can be heard through closeddoors)? 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 Tobacco Use Cigarettes 12/13/20 14:23 Smoking Status Heavy Smoker (>10/day) 11/12/24 15:22 Hx Tobacco Use Yes 11/02/24 14:00 Years Smoking Packs Smoked per Day Smoking Cessation Date was Yes - quit smoking within 15 11/02/24 14:00 within the last 15 years years Hx Smoking Cessation Date Hx Smoking Cessation Yes: 10-18-24 11/12/24 15:22 Counseling Any additional information?: Yes Smoking Status: Current every day smoker (Patient did not smoke today.) Hematologic Medial History Hematologic Hx - 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 Specify any problems Hx of Preganancy in last 3 No 11/02/24 14:00 Months Nurse Filling Out Transfusion JZOLLINGE 11/02/24 14:00 & Questions: Date: 11/02/24 11/02/24 14:00 Time: 14:03 11/02/24 14:00 Patient unable to answer at this time (ie. 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 Hx Now No 11/02/24 14:00 Gestational Age (in weeks): EDC: Hx Hx Para Hx Section SAB No 11/02/24 14:00 Active Medications Active Medications: Current Medications Generic Name Dose Route Start Last Admin Trade Name Freq PRN Reason Stop Dose Admin Cefazolin Sodium 2 gm/ Sodium 110 mls @ 150 mls/hr 11/17/24 07:30 Chloride IV 11/17/24 08:13 INTRAOP ONE Lactated Ringer's 1,000 mls @ 15 mls/hr 11/17/24 06:00 11/17/24 06:20 IV 15 mls/hr .Q48H LATA Administration PFSH Medical History History of echocardiogram History of stress test Cardiology follow-up encounter Wears glasses Gastric reflux Smoker History of pacemaker Hypertension PAD (peripheral artery disease) Atrioventricular node dysfunction Sinus node dysfunction 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) Nicotine dependence Essential (primary) hypertension Ischemic cardiomyopathy Chronic systolic congestive heart failure Atrioventricular block Old myocardial infarction Atherosclerosis of coronary artery 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 Tobacco abuse Psoriasis Hypercholesteremia Syncope and collapse Hyperlipemia Hypokalemia History of syncope History of sinus bradycardia Home Medications ?Medication ?Instructions ?Recorded ?Last Taken ?Type aspirin 81 mg chewable tablet 81 mg PO DAILY@0800 bloo d thinner 09/27/16 11/17/24 05:00 History nitroglycerin 0.4 mg sublingual 0.4 mg sublingual Q5-1 5M PRN chest 10/16/22 Unknown Rx tablet pain #25 tabs potassium chloride 10 mEq 20 meq (2 x 10 mEq) PO DAILY 10/21/23 11/16/24 Rx capsule,extended release supplement #180 caps vitamin D3 125 mcg (5,000 1 cap PO DAILY supplement 11/16/24 History unit)-vitamin K2 100 mcg capsule carvedilol 12.5 mg tablet (Coreg) 12.5 mg PO BID bp #1 80 tabs 03/16/24 11/17/24 05:00 Rx lisinopril 20 mg tablet 20 mg PO BID bp #180 tabs 11/16/24 Rx clopidogrel 75 mg tablet 75 mg PO DAILY blood thinner #90 10/27/24 11/17/24 05:00 Rx tabs atorvastatin 80 mg tablet 80 mg PO QHS cholesterol 06/17 Unknown History calcium carbonate 500 1 - 2 tab PO .as directed VT N 11/02/24 Unknown History mg-simethicone 20 mg chewable reflux tablet furosemide 40 mg tablet 40 mg PO DAILY dieretic 10/2211/16/24 History magnesium sulfate 1 ea topical 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 11/02/24 Unknown History oxycodone 5 mg tablet 5 mg PO Q6H PRN pain 5 days #20 11/12/24 11/16/24 Rx tabs Allergy/AdvReac Type Severity Reaction Status Date / Time No Known Allergies Allergy Verified 11/17/24 06:15 Family History Father CAD (coronary artery disease) Myocardial infarction Brother CAD (coronary artery disease) Myocardial infarction Mother Cancer Surgical History History of electrophysiologic study (03/07/12) Biventricular ICD (implantable cardioverter-defibrillator) in place (08/04/20) History of coronary artery stent placement (03/06/12) H/O coronary artery bypass surgery (04/28/97) Saphenous vein graft to CFX saphenous vein graft to RCA H/O tubal ligation History of left heart catheterization (06/27/20) Social History household members: spouse and family housing: house Smoking Status: Heavy Smoker (>10/day) second hand exposure: Yes alcohol intake: current alcohol intake frequency: holidays/special occasions only substance use type: does not use caffeine: Yes Type: carbonated beverages Number of servings: 4 what type of physical activity do you participate in: none seatbelt use: always do you feel safe at home: Yes Review of Systems (Anesthesia) ROS Narrative System reviewed and no additional complaints, except as documented. 11/17/24 0702 tru CORDOBA> Date _ Tobin Roth MD Cosigner Signature: Date CC: ~ Signed [facility]05-23-2025 NoteHNO ID: [id number] Author: LAURA GREEN RN Service: ? Author Type: Registered Nurse Type: Progress Notes Filed: 11/13/2024 15:11 Note Text: [facility] Chart Review Provider Action/FYI Patient identified by name and date of :YES Patient identified [facility]ination [facility] Was patient contacted?: No: Patient is not established with [facility] Provider., No outreach is necessary Patient discharged from [facility] on 11/12/24 ED Provider Discharge summary: Outreach Plan:Follow up call needed:No [facility] NotePatient Outreach (MRCAC) NELLI RIVERS ([id number]) 1945 F Date Time Provider Department 11/13/24 LAURA GREEN MRC During your visit today, we recorded the following information about you: Laura Green RN 11/13/2024 3:11 PM Signed [facility] Chart Review Provider Action/FYI Patient identified by name and date of :YES Patient identified for Care Coordination [facility] Discharge Report Was patient contacted?: No: Patient is not established with 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 - buPROPion SR (WELLBUTRIN SR) 100 mg 12 hr tablet Take 1 tablet by mouth twice daily. For smoking cessation. - albuterol HFA (VENTOLIN HFA) 90 mcg/actuation inhaler Inhale 2 Puffs as instructed every 4 hours as needed for Wheezing/Shortness of Breath. - benzonatate (TESSALON PERLE) 100 mg capsule Take 1 capsule by mouth three times daily as needed. - guaiFENesin (MUCINEX) 600 mg 12 hr tablet Take 2 tablets by mouth twice daily. - aspirin, enteric coated (ECOTRIN LOW STRENGTH) 81 mg EC tablet Take 81 mg by mouth once daily. - lisinopril (ZESTRIL, PRINIVIL) 20 mg tablet Take 20 mg by mouth twice daily. - atorvastatin (LIPITOR) 80 mg tablet Take 80 mg by mouth once daily. - clopidogrel (PLAVIX) 75 mg tablet Take 75 mg by mouth once daily. - carvedilol (COREG) 25 mg tablet Take 25 mg by mouth twice daily with meals. - furosemide (LASIX) 40 mg tablet Take 40 mg by mouth twice daily. - albuterol HFA (PROAIR HFA) 90 mcg/actuation inhaler Inhale 2 Puffs as instructed every 4 hours as needed. - Benzonatate (TESSALON) 200 mg capsule Take 200 mg by mouth three times daily as needed for Cough. Problem List As Of Date: 11/13/2024 (None) Encounter Status:Closed by LAURA GREEN on 11/13/24[facility] 11-04-2024 Telephone encounter Note* Telephone Encounter - Carmina Shetty LPN - 11/04/2024 4:32 PM EDT Patient is overdue for wellness exam Please call and schedule Carmina Shetty LPN November 04, 2024 4:33 PM [facility]05-14-2025 Miscellaneous Notes* Telephone Encounter - Carmina Shetty LPN - 11/04/2024 4:32 PM EDT Patient is overdue for wellness exam Please call and schedule Carmina Shetty LPN November 04, 2024 4:33 PM documented in [facility] Evaluation note* Diagnosis Onset Date Resolution Status Admit Date Atherosclerosis of [place] teries of extremities with intermittent chronic October 22, 2024 1:31pm [facility] Work Phone: 1(390) 975-448905-01-2025 Evaluation note* Diagnosis Onset Date Resolution Status Admit Date 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 Author Type: Nursing Home Assistant Administrator Type: Progress Notes Filed: 10/20/2024 15:01 Note Text: POPULATION HEALTH NAVIGATION OUTREACH Action/FYI Community Monitoring Navigation Pool/ACM Discuss/Due for: ED Follow Up Left leg pain We are forwarding this patient to Network Navigation to schedule a 10/18/2024 [facility] PCP follow-up appointment and to verify patient's insurance information. Outcome: 1st attempt - Spoke to patient Patient declined ED Follow Up, as seeing Vascular Surgery this Reason for Outreach Community Monitoring/Network Navigator Pools AND Phone Line: CM Pool Care Gaps due: Follow-up Appointment Patient Contacted: Spoke to patient/parent/or legal guardian Patient identified by name and : Yes Community Monitoring/Network Navigator Pools AND Phone Line actions taken: Patient declined: Doesn't feel it's necessary Navigation Signature: Bre Portillo MA October 20, 2024 2:[facility] History of Present illness Narrative* Bre Portillo MA - 10/20/2024 2:50 PM EDT POPULATION HEALTH NAVIGATION OUTREACH Action/FYI Community Monitoring Navigation Pool/ACM Discuss/Due for: ED Follow Up Left leg pain We are forwarding this patient to [employer] to schedule a 10/18/2024 [facility] PCP follow-up appointment and to verify patient's insurance information. Outcome: 1st attempt - Spoke to patient Patient declined ED Follow Up, as seeing Vascular Surgery this Reason for Outreach Community Monitoring/Network Navigator Pools & Phone Line: CM Pool Care Gaps due: Follow-up Appointment Patient Contacted: Spoke to patient/parent/or legal guardian Patient identified by name and : Yes Community Monitoring/Network Navigator Pools & Phone Line actions taken: Patient declined: Doesn't feel it's necessary Navigation Signature: Bre Portillo MA October 20, 2024 2:50 PM * Isra Rizvi RN - 10/20/2024 2:02 PM EDTSummary: Chart review per payor request. ACM JOVITA RN Patient identified by name and date of . Reason for review or outreach: Chart Review [facility] Utilization REQUESTED ACTION/FYI: A follow-up appointment is not yet scheduled. We are forwarding this patient to [employer] to schedule a 10/18/2024 [facility] PCP follow-up appointment and to verify patient's insurance information. Thank you! ED DIAGNOSES/REASON(S) FOR ED USE: 10/18/2024 [facility] for leg pain OTHER FINDINGS/SUMMARY: CTA abdomen w/runoff, labs Patient Attributed To: DERRICKE Payer: Nereyda NUNEZ Action Taken: Referrals/Routed: Population Health Navigation: Appointment. Router to [facility] [[id number]] Contact made with patient: No, Chart review only. Signature: Isra Rizvi RN documented in this encounter[facility]-29-2025 NoteHNO ID: [id number] Author: ISRA RIZVI RN Service: ? Author Type: Registered Nurse Type: Progress Notes Filed: 10/20/2024 14:06 Note Text: Summary: Chart review per payor request. ACM JOVITA RN Patient identified by name and date of . Reason for review or outreach: Chart Review [facility] Utilization REQUESTED ACTION/FYI: A follow-up appointment is not yet scheduled. We are forwarding this patient to [facility] to schedule a 10/18/2024 [facility] PCP follow-up appointment and to verify patient's insurance information. Thank you! ED DIAGNOSES/REASON(S) FOR ED USE: 10/18/2024 [facility] for leg pain OTHER FINDINGS/SUMMARY: CTA abdomen w/runoff, labs Patient Attributed To: VIVI Payer: Nereyda NUNEZ Action Taken: Referrals/Routed: Population Health Navigation: Appointment. Router to [facility] [[id number]] Contact made with patient: No, Chart review only. Signature: Is[facility]iz[facility]NC[facility]04-29-2025 NotePatient Outreach (AMBCMG) NELLI RIVERS ([id number]) 1945 F Date Time Provider Department 10/20/24 ISRA RIZVI AMBFei During your visit today, we recorded the following information about you: Isra Rizvi RN 10/20/2024 2:06 PM Signed ACM JOVITA RN Patient identified by name and date of . Reason for review or outreach: Chart Review [facility] Utilization REQUESTED ACTION/FYI: A follow-up appointment is not yet scheduled. We are forwarding this patient to Network [facility] to schedule a 10/18/2024 [facility] PCP follow-up appointment and to verify patient's insurance information. Thank you! ED DIAGNOSES/REASON(S) FOR ED USE: 10/18/2024 [facility] for leg pain OTHER FINDINGS/SUMMARY: CTA abdomen w/runoff, labs Patient Attributed To: DERRICKE Payer: Nereyda NUNEZ Action Taken: Referrals/Routed: Population Health Navigation: Appointment. Router to [facility] [[id number]] Contact made with patient: No, Chart review only. Signature: RAJINDER Mena Jennifer L, MA 10/20/2024 3:01 PM Signed POPULATION HEALTH NAVIGATION OUTREACH Action/FYI Community Monitoring Navigation Pool/ACM Discuss/Due for: ED Follow Up Left leg pain We are forwarding this patient to Network Navigation to schedule a 10/18/2024 [facility] PCP follow-up appointment and to verify patient's insurance information. Outcome: 1st attempt - Spoke to patient Patient declined ED Follow Up, as seeing Vascular Surgery this Reason for Outreach Community Monitoring/Network Navigator Pools AND Phone Line: CM Pool Care Gaps due: Follow-up Appointment Patient Contacted: Spoke to patient/parent/or legal guardian Patient identified by name and : Yes Community Monitoring/Network Navigator Pools AND Phone Line actions taken: Patient declined: Doesn't feel it's necessary Navigation Signature: Bre Portillo MA October 20, 2024 2:50 PM Allergies As of Date: 10/20/2024 (No Known Allergies) Date Reviewed: 09/25/2016 Reviewed by: Nataly Herron Ma - Fully Assessed Reason for Visit: ACM JOVITA RN [[id number]] Cmt: Chart review per payor request. Prescriptions as of 10/20/2024 - fluticasone (FLOVENT) 220 mcg/actuation inhaler Inhale 1 Puff as instructed twice daily. - buPROPion SR (WELLBUTRIN SR) 100 mg 12 hr tablet Take 1 tablet by mouth twice daily. For smoking cessation. - albuterol HFA (VENTOLIN HFA) 90 mcg/actuation inhaler Inhale 2 Puffs as instructed every 4 hours as needed for Wheezing/Shortness of Breath. - benzonatate (TESSALON PERLE) 100 mg capsule Take 1 capsule by mouth three times daily as needed. - guaiFENesin (MUCINEX) 600 mg 12 hr tablet Take 2 tablets by mouth twice daily. - aspirin, enteric coated (ECOTRIN LOW STRENGTH) 81 mg EC tablet Take 81 mg by mouth once daily. - lisinopril (ZESTRIL, PRINIVIL) 20 mg tablet Take 20 mg by mouth twice daily. - atorvastatin (LIPITOR) 80 mg tablet Take 80 mg by mouth once daily. - clopidogrel (PLAVIX) 75 mg tablet Take 75 mg by mouth once daily. - carvedilol (COREG) 25 mg tablet Take 25 mg by mouth twice daily with meals. - furosemide (LASIX) 40 mg tablet Take 40 mg by mouth twice daily. - albuterol HFA (PROAIR HFA) 90 mcg/actuation inhaler Inhale 2 Puffs as instructed every 4 hours as needed. - Benzonatate (TESSALON) 200 mg capsule Take 200 mg by mouth three times daily as needed for Cough. Problem List As Of Date: 10/20/2024 (None) Encounter Status:Closed by ISRA RIZVI on 10/20/24[facility] 10-15-2023 Telephone encounter Note* Telephone Encounter - Karin Sheriff - 10/15/2023 3:38 PM EDT Ms, Wrote letter will mail tomorrowKarin October 15, 2023 3:38 PM [facility]04-23-2024 Miscellaneous Notes* Telephone Encounter - Karin Sheriff - 10/15/2023 3:38 PM EDT Ted, Wrote letter will mail tomorrowKarin October 15, 2023 3:38 PM * Telephone Encounter - Halle Peguero MA - 10/15/2023 3:05 PM EDT Please send contact letter. Thank you, Halle Peguero MA October 15, 2023 3:06 PM * Telephone Encounter - Halle Peguero MA - 07/08/2023 9:59 AM EST Wayne Frazier, Please reach out to the patient to schedule an annual wellness visit. Health Maintenance topics due to address: Covid-19 Vaccine(1) Pneumococcal Vaccine: 65+(1 of 2 - PCV) Hepatitis C Screening DTaP,Tdap,Td Vaccine(1 - Tdap) Diabetes Screening Shingrix Vaccine(1 of 2) RSV Vaccine(1 - 1-dose 60+ series) Bone Density Screening Influenza Vaccine(1) Advance Directive Discussion Depression Assessment Thank you, Halle Peguero MA [facility] July 08, 2023 10:00 AM documented in this encounterSelect [facility]-2024 Telephone encounter Note * Telephone Encounter - Halle Peguero MA - 10/15/2023 3:05 PM EDT Please send contact letter. Thank you, Halle Peguero MA October 15, 2023 3:06 PM [facility]01-15-2024 Telephone encounter Note* Telephone Encounter - Halle Peguero MA - 07/08/2023 9:59 AM EST Wayne Frazier, Please reach out to the patient to schedule an annual wellness visit. Health Maintenance topics due to address: Covid-19 Vaccine(1) Pneumococcal Vaccine: 65+(1 of 2 - PCV) Hepatitis C Screening DTaP,Tdap,Td Vaccine(1 - Tdap) Diabetes Screening Shingrix Vaccine(1 of 2) RSV Vaccine(1 - 1-dose 60+ series) Bone Density Screening Influenza Vaccine(1) Advance Directive Discussion Depression Assessment Thank you, Halle Peguero MA [facility] July 08, 2023 10:00 AM [facility]02-11-2021 Evaluation note* Diagnosis Onset Date Resolution Status Atrioventricular node dysfunction chronic 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 August 04, 2020 chr onic Chronic systolic congestive heart failure chronic 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 Sinus node dysfunction chron ic Claudication acute Decreased radial pulse acute 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 August 04, 2020 chr onic Essential (primary) hypertension chronic Hyperlipemia chronic 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 H/O coronary artery bypass surgery April 28, 1997 resolved Atrioventricular node dysfunction chronic 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 August 04, 2020 chr onic Chronic systolic congestive heart failure chronic 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 Sinus node dysfunction chron ic [facility] Work Phone: 1(283) 470-612002-11-2021 Evaluation note* Diagnosis Onset Date Resolution Status Claudication acute Decreased radial pulse acute 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 August 04, 2020 chr onic Essential (primary) hypertension chronic Hyperlipemia chronic 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 H/O coronary artery bypass surgery April 28, 1997 resolved Atrioventricular node dysfunction chronic 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 August 04, 2020 chr onic Chronic systolic congestive heart failure chronic 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 Sinus node dysfunction chron ic [facility] Work Phone: [phone]) 430-795802-11-2021 Evaluation note* Diagnosis Onset Date Resolution Status Atrioventricular node dysfunction chronic 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 August 04, 2020 chr onic Chronic systolic congestive heart failure chronic 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 Sinus node dysfunction chron ic 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 August 04, 2020 chr onic Claudication chronic Essential (primary) hypertension chronic Hyperlipemia chronic 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 H/O coronary artery bypass surgery April 28, 1997 resolved [facility] Work Phone: Evaluation noteNo assessment information available [facility] Work Phone: Reason for referral (narrative)No reason for referral information availableWSamaritan [facility] Work Phone: Chief Complaint and Reason for Visit Chief Complaint 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/u Sees JHR@1pm PVD Reason for Visit Atrioventricular nod e dysfunction Biventricular ICD (implantable cardioverter-defibrillator) in place Chronic systolic congestive heart failure Ischemic cardiomyopathy Sinus node dysfunction Claudication Decreased radial pulse Biventricular ICD (implantable cardioverter-defibrillator) in place Essential (primary) hypertension Hyperlipemia Ischemic cardiomyopathy H/O coronary artery bypass surgery Atrioventricular node dysfunction Biventricular ICD (implantable cardioverter-defibrillator) in place Chronic systolic congestive heart failure Ischemic cardiomyopathy Sinus node dysfunction Chief Complaint 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/u Sees JHR@1pm PVD STENOSIS OF CAROTID ARTERIES BILAT Reason for Visit Claudication Decreased radial pulse Biventricular ICD (implantable cardioverter-defibrillator) in place Essential (primary) hypertension Hyperlipemia Ischemic cardiomyopathy H/O coronary artery bypass surgery Atrioventricular node dysfunction Biventricular ICD (implantable cardioverter-defibrillator) in place Chronic systolic congestive heart failure Ischemic cardiomyopathy Sinus node dysfunction Chief Complaint PVD STENOSIS OF CAROTID ARTERIES BILAT BUN/CREATINE ARTHEROSCLEROSIS Chief Complaint STENOSIS OF CAROTID ARTERIES BILAT BUN/CREATINE ARTHEROSCLEROSIS Chief Complaint 6 MO CK / JHR 10:30 1 y fu/ 10am w JADA (MOVED FROM [facility]) INT LAB Reason for Visit Atrioventricular nod e dysfunction Biventricular ICD (implantable cardioverter-defibrillator) in place Chronic systolic congestive heart failure Ischemic cardiomyopathy Sinus node dysfunction Biventricular ICD (implantable cardioverter-defibrillator) in place Claudication Essential (primary) hypertension Hyperlipemia Ischemic cardiomyopathy H/O coronary artery bypass surgery Chief Complaint Atherosclerosis of a [place] Chief Complaint Admit Date lower extremeity October 18, 2024 11: 29am PAD discuss bypass October 22, 2024 1:31pm LT LEG PAIN November 04, 2024 8:21a m Reason for Visit Admit Date Atherosclerosis of [place] of extremities with intermittent October 22, 2024 1:31pm Chief Complaint Admit Date lower extremeity October 18, 2024 11: 29am PAD discuss bypass October 22, 2024 1:31pm LT LEG PAIN November 04, 2024 8:21a m PREOP November 04, 2024 8:37a m left leg pain November 12, 2024 3:11p m BILAT FEMORAL ENDARTERECTOMY,FEM-FEM BYP ASS,RT NAJMA November 17, 2024 7:29am ATHEROSCLEROSIS W/ REST PAIN, LEFT LOWER EXTREMITY November 17, 2024 1:22pm BILAT FEMORAL ENDARTERECTOMY,FEM-FEM BYP ASS,RT NAJMA November 18, 2024 8:23am Reason for Visit Admit Date Atherosclerosis of [place] of extremities with intermittent October 22, 2024 1:31pm Atherosclerosis of [place] of extremities with intermittent November 17, 2024 1:22pm Family History No Family History Records Found Relationship Condition Age at Onset Recorded Date/T nevin father Coronary artery disease Unknown Myocardial infarction Unknown brother Coronary artery disease Unknown mother Malignant neoplasm Unknown Advance Directives No Advanced Directives Records Found Advance Directive Response Recorded Date/ Time Advance Directives No July 10:54am Living Will No August 04 10:54am Power of Commissary Steward No August 04, 2020 10:54am Advance Directive Response Recorded Date/ Time Do you have a Healthcare Power of Commissary Steward? No October 18, 2024 11:33am Advance Directives No July 10:54am Advance Directive Response Recorded Date/ Time Do you have a Healthcare Power of Commissary Steward? No November 17, 2024 3:20pm Do you have a Healthcare Power of Commissary Steward? No October 18, 2024 11:33am Do you have a Healthcare Power of Commissary Steward? No November 12, 2024 3:22pm Advance Directives No July 10:54am Summary Purpose Additional Source Comments Goals (unrecognized section and content) Goals may be documented in a n alternate sectionGoals may be documented in an alternate sectionGoals may be documented in an alternate sectionGoals may be documented in an alternate sectionGoals may be documented in an alternate sectionGoals may be documented in an alternate sectionGoals may be documented in an alternate section Source Comments (unrecognize d section and content) In the event this informatio n is protected by the Federal Confidentiality of Alcohol and Drug Abuse Patient Records regulations: The Federal rules restrict any use of the information to criminally investigate or prosecute any alcohol or drug abuse patient.[facility] the event this information is protected by the Federal Confidentiality of Alcohol and Drug Abuse Patient Records regulations: The Federal rules restrict any use of the information to criminally investigate or prosecute any alcohol or drug abuse patient.[facility] the event this information is protected by the Federal Confidentiality of Alcohol and Drug Abuse Patient Records regulations: The Federal rules restrict any use of the information to criminally investigate or prosecute any alcohol or drug abuse patient.[facility]In the event this information is protected by the Federal Confidentiality of Alcohol and Drug Abuse Patient Records regulations: The Federal rules restrict any use of the information to criminally investigate or prosecute any alcohol or drug abuse patient.[facility] the event this information is protected by the Federal Confidentiality of Alcohol and Drug Abuse Patient Records regulations: The Federal rules restrict any use of the information to criminally investigate or prosecute any alcohol or drug abuse patient.[facility] the event this information is protected by the Federal Confidentiality of Alcohol and Drug Abuse Patient Records regulations: The Federal rules restrict any use of the information to criminally investigate or prosecute any alcohol or drug abuse patient.[facility]In the event this information is protected by the Federal Confidentiality of Alcohol and Drug Abuse Patient Records regulations: The Federal rules restrict any use of the information to criminally investigate or prosecute any alcohol or drug abuse patient.[facility] Care Teams (unrecognized sec tion and content) Team Status: Active Member Role Status Dates No Primary Care Physician Primary Care Provider Active Team Status: Inactive Member Role Status Dates Dr. Jolanta Grant MD Primary Care Provider Active Start: October 18, 2024 End: October 18, 2024 Dr. Dina Camp DO Attending Provider Active Start: October 18, 2024 End: October 18, 2024 Dr. Dina Camp DO Emergency Provider Active Start: October 18, 2024 End: October 18, 2024 Team Status: Inactive Member Role Status Dates Dr. Jolanta Grant MD Primary Care Provider Active Start: October 22, 2024 End: October 22, 2024 Dr. Jolanta Grant MD Referring Provider Active Start: October 22, 2024 End: October 22, 2024 Dr. Crow Dc MD Attending Provider Active S tart: October 22, 2024 End: October 22, 2024 Team Status: Inactive Member Role Status Dates Dr. Jolanta Grant MD Primary Care Provider Active Start: November 04, 2024 End: November 04, 2024 Dr. Crow Dc MD Attending Provider Active S tart: November 04, 2024 End: November 04, 2024 Dr. Crow Dc MD Referring Provider Active S tart: November 04, 2024 End: November 04, 2024 Team Status: Active Member Role Status Dates Dr. Jolanta Grant MD Primary Care Provider Active Start: November 04, 2024 Dr. Crow Dc MD Attending Provider Active S tart: November 04, 2024 Dr. Crow Dc MD Referring Provider Active S tart: November 04, 2024 Team Status: Active Member Role Status Dates Dr. Jolanta Grant MD Primary Care Provider Active Start: November 04, 2024 End: November 04, 2024 Dr. Akin Carbajal MD Attending Provider Active Start: November 04, 2024 End: November 04, 2024 Dr. Crow Dc MD Referring Provider Active S tart: November 04, 2024 End: November 04, 2024 Team Status: Inactive Member Role Status Dates Dr. Jolanta Grant MD Primary Care Provider Active Start: November 12, 2024 End: November 12, 2024 Dr. Darryl Quinones DO Attending Provider Active Start: November 12, 2024 End: November 12, 2024 Dr. Darryl Quinones DO Emergency Provider Active Start: November 12, 2024 End: November 12, 2024 Team Status: Active Member Role Status Dates Dr. Jolanta Grant MD Primary Care Provider Active Start: November 17, 2024 Dr. Crow Dc MD Admit Provider Active Start : November 17, 2024 Dr. Crow Dc MD Attending Provider Active S tart: November 17, 2024 Dr. Crow Dc MD Referring Provider Active S tart: November 17, 2024 Dr. Crow Dc MD Other Provider Active Start : November 17, 2024 Team Status: Inactive Member Role Status Dates Dr. Crow Dc MD Admit Provider Active Start : November 17, 2024 End: November 20, 2024 Dr. Crow Dc MD Attending Provider Active S tart: November 17, 2024 End: November 20, 2024 Dr. Crow Dc MD Referring Provider Active S tart: November 17, 2024 End: November 20, 2024 No Primary Care Physician Primary Care Provider Active Start: November 17, 2024 End: November 20, 2024 Team Status: Active Member Role Status Dates Dr. Corw Dc MD Admit Provider Active Start : November 18, 2024 Dr. Crow Dc MD Referring Provider Active S tart: November 18, 2024 Dr. Crow Dc MD Other Provider Active Start : November 18, 2024 No Primary Care Physician Primary Care Provider Active Start: November 18, 2024 MANDIE Montero Attending Provider Active Star t: November 18, 2024 Team Status: Active Member Role Status Dates Dr. Jolanta Grant MD Family Provider Active Dr. Jolanta Grant MD Primary Care Provider Active Team Status: Inactive Member Role Status Dates Dr. Jolanta Grant MD Primary Care Provider, Referrin g Provider Active Loree Marsh Attending Provider Active Team Status: Inactive Member Role Status Dates Dr. Jolanta Grant MD Primary Care Provider, Referrin g Provider Active Hira Newman ENGINE COWLING INSTALLER, ENGINE COWLING INSTALLER-C Attending Provider Active Team Status: Inactive Member Role Status Dates Dr. Jolanta Grant MD Primary Care Provider Active Hira Newman ENGINE COWLING INSTALLER, ENGINE COWLING INSTALLER-C Attending Provider, Referring Pro vider Active Team Status: Inactive Member Role Status Dates Dr. Jolanta Grant MD Primary Care Provider Active Dr. Keith Jaime MD Attending Provider, Referring Provider Active Thermometer Tester Relationship Specialty Start Date End Date Jolanta Grant MD [address] [place] [address] PCP - General Family Medicine 10/17/22 Thermometer Tester Relationship Specialty Start Date End Date Jolanta Grant MD [address] [place] [address] PCP - General Family Medicine 10/17/22 Thermometer Tester Relationship Specialty Start Date End Date Jolanta Grant MD [address] [place] [address] PCP - General Family Medicine 10/17/22 Thermometer Tester Relationship Specialty Start Date End Date Jolanta Grant MD [address] [place] [address] PCP - General Family Medicine 10/17/22 Thermometer Tester Relationship Specialty Start Date End Date Jolanta Grant MD [address] [place] [address] [facility] 10/20/24 Thermometer Tester Relationship Specialty Start Date End Date Jolanta Grant MD [address] [place] [address] PCP - [facility] Family Medicine 10/20/24 Team Status: Active Member Role Status Dates Dr. Jolanta Grant MD Primary Care Provider Active Team Status: Active Member Role Status Dates Dr. Jolanta Grant MD Primary Care Provider Active Start: November 04, 2024 Dr. Crow Dc MD Attending Provider Active S tart: November 04, 2024 Reason for Visit (unrecogniz ed section and content) Reason Comments Due for annual wellness visit Reason Onset Date Comments ACM JOVITA RN 10/20/2024 Chart review per payor request. Reason Comments Appointment INFORMATION SOURCE (unrecogn ized section and content) DATE CREATED AUTHOR 10/21/2024 [facility] DATE CREATED AUTHOR AUTHOR'S ORGANIZ ATION 11/20/2024 [facility] DATE CREATED AUTHOR AUTHOR'S ORGANIZ ATION 11/27/2024 [facility] FOR RECORDS PERTAINING TO PATIENTS WHO ARE OR HAVE BEEN ENROLLED IN A CHEMICAL DEPENDENCY/SUBSTANCEABUSE PROGRAM, SOME INFORMATION MAY BE OMITTED. This clinical summary was aggregated from multiple sources. Caution should be exercised in using it in the provision of clinical care. This summary normalizes information from multiple sources, and as a consequence, information in this document may materially change the coding, format and clinical context of patient data. In addition, data may be omitted in some cases. CLINICAL DECISIONS SHOULD BE BASED ON THE PRIMARY CLINICAL RECORDS. [employer] [facility]. provides no warranty or guarantee of the accuracy or completeness of information in this document.
== END 2024-11-20 17:23 | disposition skilled nursing facility (03) | DRG 279 ==
LOC: ICU 11-18 09:02
PROVIDERS: Physician Assistant; Admitting Provider Surgery Trauma Surgery; Referring Provider Surgery Trauma Surgery; Visit Provider Surgery Trauma Surgery
PROC: 04FH3ZZ Fragmentation of Right External Iliac Artery, Percutaneous Approach (ICD-10-PCS; principal; 2024-11-17 07:00)
DX: I70.222 Atherosclerosis of native arteries of extremities with rest pain, left leg (principal); I50.22 Chronic systolic (congestive) heart failure; I70.92 Chronic total occlusion of artery of the extremities; E78.2 Mixed hyperlipidemia; I11.0 Hypertensive heart disease with heart failure; I25.10 Atherosclerotic heart disease of native coronary artery without angina pectoris; I25.5 Ischemic cardiomyopathy; F17.200 Nicotine dependence, unspecified, uncomplicated; I70.201 Unspecified atherosclerosis of native arteries of extremities, right leg; Z95.5 Presence of coronary angioplasty implant and graft
CPT/HCPCS: 76000; 80048; 83735; 84100; 85018; 85025; 85027; 85347; 86850; 86900; 86901; 86920; 86922; 88304; 88311; 93005; 94668; 94762; 97116; 97162; 97166; 97530; 97535; 97802; 99252; A4648; C1769; C1894; P9016; P9047; A4216; C1725; G0463; J1938; J2405

== ENCOUNTER 2024-11-20 17:30 | Inpatient (IN) | payer MEDICARE, SELFPAY ==
[2024-11-20 17:59] VITALS: BP 100/57; PULSE 60; RESP 14; TEMP 35.9; O2SAT 97; BMI 26.4
--- NOTE | 2024-11-20 20:30 | HP.PCM_ITS ---
HPI - General General Date of Admission: 11/20/24 Date of Service: 11/20/24 Chief Complaint: Here for rehabilitation. HPI Narrative ANA JIMENEZ, is a 79 Female who presents with followin11/17/2024 Admit [facility]. CTA with runoff showed bilateral lower extremity PAOD. 11/17/2024 Dr. Dc performed right common and external iliac artery intravascular lithotripsy, angioplasty, and stent. Right femoral endarterectomy. Right to left femoral-femoral bypass with cadaver graft. Bilateral sartorius flaps. 11/18/2024 Tolerating clear liquid diet. Left hallux pain, right groin incisional pain. Blood pressure low. Replace K 3.1. D/C mitchell, D/C art-line, regular diet, PT/OT. 11/19/2024 Tired from therapy. Hemoglobin 7.8, transfuse 1 unit PRBC, Hemoglobin 9.3 afterwards. Prevena VAC to bilateral inguinal incision sites thru 11/25/2024. Blood pressure improved. PT/OT. 11/20/2024 Admit to TCU with debility, here for rehabilitation, strengthening, prior to discharge home with spouse/family. [facility] Medical History (Updated 11/20/24 @ 20:[address] 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) Nicotine dependence Essential (primary) hypertension Ischemic cardiomyopathy Chronic systolic congestive heart failure Atrioventricular block Old myocardial infarction Atherosclerosis of coronary artery 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 Tobacco abuse Psoriasis Hypercholesteremia Syncope and collapse Hyperlipemia Hypokalemia History of syncope History of sinus bradycardia Home Medications ?Medication ?Instructions ?Recorded ?Last Taken ?Type aspirin 81 mg chewable tablet 81 mg PO DAILY@0800 bloo d thinner 09/27/16 11/20/24 08:50 History nitroglycerin 0.4 mg sublingual 0.4 mg sublingual Q5-1 5M PRN chest 10/16/22 Unknown Rx tablet pain #25 tabs potassium chloride 10 mEq 20 meq (2 x 10 mEq) PO DAILY 10/21/23 11/20/24 08:50 Rx capsule,extended release supplement #180 caps vitamin D3 125 mcg (5,000 1 cap PO DAILY supplement 11/16/24 History unit)-vitamin K2 100 mcg capsule carvedilol 12.5 mg tablet (Coreg) 12.5 mg PO BID bp #1 80 tabs 03/16/24 11/20/24 16:15 Rx lisinopril 20 mg tablet 20 mg PO BID bp #180 tabs 11/16/24 Rx clopidogrel 75 mg tablet 75 mg PO DAILY blood thinner #90 10/27/24 11/20/24 08:50 Rx tabs atorvastatin 80 mg tablet 80 mg PO QHS cholesterol 06/1711/19/24 22:00 History calcium carbonate 500 1 - 2 tab PO .as directed [place] N 11/02/24 Unknown History mg-simethicone 20 mg chewable reflux tablet furosemide 40 mg tablet 40 mg PO DAILY dieretic 10/2211/20/24 08:50 History magnesium sulfate 1 ea topical TID 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 11/02/24 Unknown History acetaminophen 500 mg tablet 1,000 mg (2 x 500 mg) PO Q 8 Pain 11/20/24 11/20/24 13:30 Rx #0 tabs docusate sodium 100 mg capsule 100 mg PO BID PRN PRN C onstipation 11/20/24 11/20/24 13:30 Rx #0 caps oxycodone 5 mg tablet 5 mg PO Q8H PRN PRN Pain Sco re 11/20/24 11/20/24 16:10 Rx 4-10 5 days #15 tabs Allergy/AdvReac Type Severity Reaction Status Date / Time No Known Allergies Allergy Verified 11/17/24 06:15 Family History Father CAD (coronary artery disease) Myocardial infarction Brother CAD (coronary artery disease) Myocardial infarction Mother Cancer Surgical History History of electrophysiologic study (03/07/12) Biventricular ICD (implantable cardioverter-defibrillator) in place (08/04/20) History of coronary artery stent placement (03/06/12) H/O coronary artery bypass surgery (04/28/97) Saphenous vein graft to CFX saphenous vein graft to RCA H/O tubal ligation History of left heart catheterization (06/27/20) Social History household members: spouse and family housing: house Smoking Status: Current every day smoker tobacco type: cigarettes second hand exposure: Yes alcohol intake: current alcohol intake frequency: holidays/special occasions only substance use type: does not use caffeine: Yes Type: carbonated beverages Number of servings: 4 what type of physical activity do you participate in: none seatbelt use: always do you feel safe at home: Yes ROS Constitutional Constitutional: Reports weakness; Denies chills, fever(s) or weight gain ENT HEENT: Denies headache(s), nasal congestion or nasal discharge Cardiovascular Cardiovascular: Denies chest pain or palpitations Respiratory/Chest Respiratory/Chest: Denies cough, excessive phlegm production or shortness of breath with exertion Gastrointestinal Gastrointestinal: Denies abdominal pain, nausea or vomiting Genitourinary Genitourinary: Denies dysuria Musculoskeletal Musculoskeletal: Denies joint pain or joint swelling Integumentary Integumentary: Denies rash or wounds Neurologic Neurologic: Denies focal weakness, numbness or tingling Psychiatric Psychiatric: Denies anxiety, auditory hallucinations, depression, homicidal ideation or suicidal ideation Vital Signs Vital Signs Vital Signs: 11/20/24 17:59 Temperature 96.7 F L Temperature Source Temporal Pulse Rate 60 Respiratory Rate 14 Blood Pressure 100/57 L Blood Pressure Mean 71 Blood Pressure Source Monitor Blood Pressure Position Semi-Fowlers Blood Pressure Location Left Arm Pulse Ox 97 Oxygen Delivery Method Room Air Weight Weight: 65.459 kg Body Mass Index (BMI) 26.4 Physical Exam Const alert General Appearance: cooperative HEENT normocephalic Eyes PERRL and EOMs intact bilaterally Neck supple, no JVD and no carotid bruits Resp normal respiratory effort, normal air movement and clear to auscultation bilaterally Cardio regular rate and regular rhythm GI normal to inspection, nondistended, normoactive bowel sounds, non-tender and non-distended Extremity normal capillary refill Extremity Narrative: Bilateral inguinal prevena VAC intact. General Extremity: Negative for edema Skin no rashes or lesions noted General Skin Exam: no breakdown Psych affect normal Appearance: appropriate Assessment & Plan Assessment/Plan (1) Debility: (2) Atherosclerosis of [place] arteries of extremities with intermittent claudication, left leg: (3) PAD (peripheral artery disease): (4) Coronary artery disease: (5) Hypokalemia: (6) Chronic HFrEF (heart failure with reduced ejection fraction): (7) Hyperlipemia: QUALIFIERS: Hyperlipidemia type: mixed hyperlipidemia Qualified Code(s): E78.2 - Mixed hyperlipidemia (8) Tobacco abuse: PLAN: Plan 79 year old female with below past medical history hospitalized with bilateral lower extremity pad, underwent bilateral lower extremity revascularization 11/17/[address] Dc, postoperative course complicated by postoperative anemia requiring transfusion, transient hypotension, admitted to TCU with debility, here for rehabilitation, strengthening, prior to discharge home with spouse/family. * Debility - PT/OT. * Pain - Tylenol 1000mg q8, Oxycodone 5mg q4 prn pain (4-10). * Bowel - senna/colace 1 tablet bid, Magnesium citrate 300mL daily prn. * Adult immunization - Administer pneumonia vaccine, covid vaccine, flu vaccine as appropriate. * DVT prophylaxis - Hold, on dual antiplatelet therapy. * Bilateral lower extremity pad s/p revascularization - Asprin 81mg daily, Plavix 75mg daily, consult Tiana Wood to follow, prevena VAC thru 11/25/2024. * Hyperlipidemia - Atorvastatin 80mg qhs. * Indigestion - TUMS 500mg q6 prn. * Chronic HFrEF - Coreg 12.5mg bidcm, Lisinopril 20mg bid, Furosemide 40mg daily. * Vitamin D deficiency - D3 125mcg daily. * Coronary artery disease - Coreg 12.5mg bid, Lisinopril 20mg bid, Plavix 75mg daily, Aspirin 81mg daily, NTG 0.4mg sl q5m prn. * Tobacco abuse - Nicotine 21mg td daily. * Hypokalemia - KCL 20meq daily.
[2024-11-20] MEDS: Senna/Docusate Sodium 1 Tablet PO (22:44)
[2024-11-20] MEDS: Acetaminophen 500 MG Tablet 1000 MG PO (22:44)
[2024-11-20] MEDS: Atorvastatin Calcium 80 MG Tablet PO (22:44)
[2024-11-20] MEDS: Lisinopril 20 MG Tablet PO (22:44)
[2024-11-20 22:55] VITALS: BP 139/58; PULSE 59; RESP 17; TEMP 36.8; O2SAT 96
[2024-11-21 04:38] VITALS: PULSE 57; RESP 18
[2024-11-21 04:55] VITALS: BP 130/40; PULSE 57; RESP 18; TEMP 36.6; O2SAT 95
[2024-11-21] MEDS: Acetaminophen 500 MG Tablet 1000 MG PO ×3 (05:09→20:28)
[2024-11-21] MEDS: Menthol/Lanolin/Calamine/Znox 113 GM Tube 1 APPLIC TOPICAL ×3 (05:10→20:30)
[2024-11-21 06:01] LABS: Absolute Lymphocyte Count 2.03 X10^3/uL (0.83-4.51); Absolute Neutrophil Count 6.8 X10^3/uL (2.0-7.7); Basophil# 0.02 X10^3/uL; Basophil% 0.2 % (0-1); Eosinophils% 1.1 % (0-5); Hematocrit 28.9 % (37-47); Hemoglobin 9.9 g/dL (12.0-15.0); Lymphocyte # 2.03 X10^3/ul (0.83-4.51); Lymphocyte % 21.6 % (19-41); Mean Corp Hgb Conc 34.3 g/dL (32-36); Mean Corpuscular Hgb 31.1 pg (27.0-32.0); Mean Corpuscular Volume 90.9 fL (81-99); Monocyte# 0.45 X10^3/uL; Monocyte% 4.8 % (0-10); NRBC Flagged by Analyzer 0 % (0-5); Neutrophil # 6.77 X10^3/uL (2.7-7.7); Neutrophil % 71.9 % (47-70); Platelet Count 228 K/mm3 (150-450); RBC Distribution Width CV 13.6 % (11.6-14.6); RBC Distribution Width SD 45.1 fl (35.1-43.9); Red Blood Count 3.18 M/mm3 (4.2-5.4); White Blood Count 9.4 K/mm3 (4.4-11.0)
[2024-11-21 07:45] LABS: Anion Gap 11 (5-15); BUN 12 mg/dL (4-19); BUN/Creat Ratio 14.8 RATIO (10-20); Calcium,Total 8.8 mg/dL (7.6-11.0); Carbon Dioxide 23.4 mmol/L (21.0-32.0); Chloride 105 mmol/L (98-108); Creatinine, Serum 0.82 mg/dL (0.70-1.20); EST Glomerular Filtration Rate 73 (>60); Glucose 103 mg/dL (70-99); Potassium 3.8 mmol/L (3.3-5.1); Sodium Level 139 mmol/L (133-145)
[2024-11-21] MEDS: Aspirin 81 MG TAB.CHEW PO (09:29)
[2024-11-21] MEDS: Lisinopril 20 MG Tablet PO ×2 (09:29→20:29)
[2024-11-21] MEDS: Senna/Docusate Sodium 1 Tablet PO (09:30)
[2024-11-21] MEDS: Cholecalciferol (Vit D3) 125 MCG CAPSULE (5,000 UNITS) PO (09:30)
[2024-11-21] MEDS: Furosemide 40 MG Tablet PO (09:30)
[2024-11-21] MEDS: Potassium Chloride Oral Tablet 20 MEQ PO (09:30)
[2024-11-21] MEDS: Carvedilol 12.5 MG Tablet PO ×2 (09:30→18:07)
[2024-11-21] MEDS: Clopidogrel Bisulfate 75 MG Tablet PO (09:30)
[2024-11-21 10:00] VITALS: PULSE 55; RESP 16; O2SAT 96
--- NOTE | 2024-11-21 14:19 | PCM.PN.DRR ---
Documented by User: Andrés Flowers 11/21/24 14:34 TCU RX Drug Regimen Review Subjective/Objective Subjective/Objective Subjective: TCU admission note.79 year old female with below past medical history hospitalized with bilateral lower extremity pad, underwent bilateral lower extremity revascularization 11/17/[address] Dc, postoperative course complicated by postoperative anemia requiring transfusion, transient hypotension, admitted to TCU with debility, here for rehabilitation, strengthening, prior to discharge home with spouse/family. Objective: Allergies No Known Allergies Allergy (Verified 11/17/24 06:15) Current Medications Generic Name Dose Route Start Last Admin Trade Name Freq PRN Reason Stop Dose Admin Acetaminophen 1,000 mg 11/20/24 22:00 11/21/24 05:09 Acetaminophen 500 Mg Tablet PO 1,000 mg Q8 LATA Administration Aspirin 81 mg 11/21/24 08:00 11/21/24 09:29 Aspirin 81 Mg Tab.Chew PO 81 mg BREAKFAST LATA Administration Atorvastatin Calcium 80 mg 11/20/24 22:00 11/20/24 22:44 Atorvastatin Calcium 80 Mg Tablet PO 80 mg QHS LATA Administration Calamine/Phenol 1 applic 11/21/24 06:00 11/21/24 05:10 Menthol/Lanolin/Calamine/Znox 113 Gm Tube TOPICAL 1 applic TID LATA Administration Protocol Calcium Carbonate 500 mg 11/20/24 19:41 Calcium Carbonate 500 Mg Tablet PO Q6H PRN PRN reflux Carvedilol 12.5 mg 11/21/24 08:00 11/21/24 09:30 Carvedilol 12.5 Mg Tablet PO 12.5 mg BIDCM LATA Administration Protocol Cholecalciferol 125 mcg 11/21/24 10:00 11/21/24 09:30 Cholecalciferol (Vit D3) 125 Mcg Capsule (5,000 Units) PO 125 mcg DAILY LATA Administration Clopidogrel Bisulfate 75 mg 11/21/24 10:00 11/21/24 09:30 Clopidogrel Bisulfate 75 Mg Tablet PO 75 mg DAILY LATA Administration Furosemide 40 mg 11/21/24 10:00 11/21/24 09:30 Furosemide 40 Mg Tablet PO 40 mg DAILY LATA Administration Protocol Lisinopril 20 mg 11/20/24 22:00 11/21/24 09:29 Lisinopril 20 Mg Tablet PO 20 mg BID LATA Administration Protocol Magnesium Citrate 300 ml 11/20/24 20:29 Magnesium Citrate 300 Ml PO DAILY PRN Constipation Nicotine 21 mg 11/20/24 21:00 11/21/24 09:30 Nicotine 21 Mg Patch TD Not Given DAILY LATA Nitroglycerin 0.4 mg 11/20/24 18:41 Nitroglycerin (Inpatient Use) 0.4 Mg Tab.Subl SL Q5M PRN CARDIAC/CHEST PAIN Oxycodone HCl 5 mg 11/20/24 20:30 Oxycodone 5 Mg Tablet PO Q4H PRN PRN Pain Score 4-10 Potassium Chloride 20 meq 11/21/24 08:00 11/21/24 09:30 Potassium Chloride Oral Tablet 20 Meq PO 20 meq DAILYCM LATA Administration Senna/Docusate Sodium 1 tablet 11/20/24 22:00 11/21/24 09:30 Senna/Docusate Sodium 1 Tablet PO 1 tablet BID LATA Administration Sodium Chloride 10 - 40 ml 11/20/24 18:12 0.9% Saline Lock 10 Ml Syringe IV UD PRN SALINE FLUSH Tuberculin PPD 0.1 ml 11/28/24 10:00 Tuberculin,Purif.Prot.Deriv. 50 Tu/Ml Vial ID 11/28/24 10:01 X1 ONE Problem List Tobacco abuse (Acute) Chronic HFrEF (heart failure with reduced ejection fraction) (Chronic) Hypokalemia (Acute) Coronary artery disease (Acute) Debility (Acute) Atherosclerosis of [place] arteries of extremities with intermittent claudication, left leg (Chronic) PAD (peripheral artery disease) (Acute) Hyperlipemia (Chronic) Vital Signs Temp Pulse Resp BP Pulse Ox O2 Del Method 97.8 F 55 L 16 130/40 H 96 Room Air 11/21/24 04:55 11/21/24 10:00 11/21/24 10:00 11/21/24 04:55 11/21/24 10:00 11/21/24 10:00 Oxygen Delivery Method Room Air Weight: 65.459 kg Body Mass Index (BMI) 26.4 Sodium 139 mmol/L (133-145) 11/21/24 05:10 Potassium 3.8 mmol/L (3.3-5.1) 11/21/24 05:10 Chloride 105 mmol/L (98-108) 11/21/24 05:10 Carbon Dioxide 23.4 mmol/L (21.0-32.0) 11/21/24 05:10 Anion Gap 11 (5-15) 11/21/24 05:10 BUN 12 mg/dL (4-19) 11/21/24 05:10 Creatinine 0.82 mg/dL (0.70-1.20) 11/21/24 05:10 Est GFR (MDRD) Non-Af 73 (>60) 11/21/24 05:10 BUN/Creatinine Ratio 14.8 RATIO (10-20) 11/21/24 05:10 Glucose 103 mg/dL (70-99) H 11/21/24 05:10 Assessment/Plan: 1. Pain: acetaminophen 1000 mg PO Q8H, oxycodone 5 mg PO Q4H PRN pain (-04/02). The patient has not required any PRN doses of oxycodone so far this admission. Please continue to monitor pain levels, LFTs (no recent LFTs documented), for dizziness/drowsiness, respiratory depression, constipation, and for syncope/ataxia/falls. 2. Bowel: senna/docusate 1 tablet PO BID, magnesium citrate 300 mL PO daily PRN constipation. The patient has not required any PRN doses of magnesium citrate so far this admission and the patient's last documented bowel movement was on 11/21/24. Please continue to monitor for bowel movements, PRN medication usage, constipation and diarrhea. 3. Bilateral LE PAD s/p revascularization: aspirin 81 mg PO daily, clopidogrel 75 mg PO daily. Please continue to monitor for lower extremity pain, for bleeding/excessive bruising, hemoglobin levels (Hgb = 9.9 g/dL on 11/21/24), platelet counts (Plt = 228 K/mm3 on 11/21/24), and for GI distress with aspirin administration. 4. Chronic HFrEF/coronary artery disease: carvedilol 12.5 mg PO BID with meals, lisinopril 20 mg PO BID, furosemide 40 mg PO daily, nitroglycerin 0.4 mg SL Q5M PRN chest pain. The patient has not required any PRN doses of nitroglycerin so far this admission. Please continue to monitor for s/s of a heart failure exacerbation such as increased lower extremity edema, shortness of breath JVD, for chest pain, for PRN medication usage, blood pressures (recent range = 99-158/40-72 mmHg), heart rates (recent range = 56-63 beast/min), for fatigue, for angioedema, dry cough, renal function (serum creatinine = 0.82 mg/dL with creatinine clearance ~ 50 mL/min on 11/21/24), sodium levels (Na = 139 mmol/L on 11/21/24), potassium levels (K = 3.8 mmol/L on 11/21/24), calcium levels (Ca = 8.8 mg/dL on 11/21/24), and for s/s of dehydration. 5. Hyperlipidemia: atorvastatin 80 mg PO QHS. Please continue to monitor lipid levels (no recent lipid levels documented), LFTs (no recent LFTs documented), and for myalgias. Please consider obtaining a lipid panel if clinically indicated. 6. Hypokalemia: potassium chloride 20 mEq PO daily. Please continue to monitor potassium levels (K = 3.8 mmol/L on 11/21/24), for s/s of hypokalemia, and for GI distress with potassium chloride administration. 7. Tobacco abuse: nicotine 21 mg patch TD daily. Please continue to monitor for s/s of nicotine cravings, and for nightmares. 8. Indigestion: calcium carbonate 500 mg PO Q6H PRN reflux. The patient has not required any PRN doses of calcium carbonate so far this admission. Please continue to monitor for s/s of reflux, for PRN medication administrations, and calcium levels (Ca = 8.8 mg/dL on 11/21/24). 9. Vitamin D deficiency: cholecalciferol 125 mcg PO daily. Please continue to monitor vitamin D levels (no recent vitamin D levels documented) as well as for s/s of vitamin D deficiency. 10. skin irritation: calmoseptine 1 application topically BID. Please continue to monitor for skin irritation and skin integrity. Assessment/Plan for indications treated with psychotropic medications: NA Medical chart and medication regimen reviewed. The following medication irregularities or issues were identified: NA Date Date of Note: 11/21/24 Documented by User: Dr. Shahid Raya MD 11/21/24 18:11 TCU RX Drug Regimen Review Provider Comments Provider responsibility Provider Comments to Recommendations by Pharmacy Agree
[2024-11-21 16:00] VITALS: BP 128/50; PULSE 60; RESP 18; TEMP 36.6; O2SAT 96
[2024-11-21] MEDS: Tuberculin,Purif.prot.deriv. 50 TU/ML Vial 0.1 ML ID (18:08)
[2024-11-21] MEDS: oxyCODONE 5 MG Tablet PO (20:27)
[2024-11-21] MEDS: Atorvastatin Calcium 80 MG Tablet PO (20:29)
[2024-11-22] MEDS: oxyCODONE 5 MG Tablet PO ×4 (05:29→20:53)
[2024-11-22] MEDS: Menthol/Lanolin/Calamine/Znox 113 GM Tube 1 APPLIC TOPICAL ×3 (05:30→20:55)
[2024-11-22] MEDS: Acetaminophen 500 MG Tablet 1000 MG PO ×3 (05:30→20:57)
[2024-11-22 07:04] LABS: Anion Gap 10 (5-15); BUN 15 mg/dL (4-19); BUN/Creat Ratio 16.3 RATIO (10-20); Carbon Dioxide 24.7 mmol/L (21.0-32.0); Chloride 104 mmol/L (98-108); Creatinine, Serum 0.89 mg/dL (0.70-1.20); EST Glomerular Filtration Rate 66 (>60); Estimated Creatinine Clearance 46.26 ml/min (50-250); Glucose 100 mg/dL (70-99); Potassium 4.2 mmol/L (3.3-5.1); Sodium Level 139 mmol/L (133-145)
[2024-11-22] MEDS: Aspirin 81 MG TAB.CHEW PO (09:20)
[2024-11-22] MEDS: Carvedilol 12.5 MG Tablet PO ×2 (09:20→16:27)
[2024-11-22] MEDS: Potassium Chloride Oral Tablet 20 MEQ PO (09:21)
[2024-11-22] MEDS: Clopidogrel Bisulfate 75 MG Tablet PO (09:21)
[2024-11-22] MEDS: Furosemide 40 MG Tablet PO (09:21)
[2024-11-22] MEDS: Cholecalciferol (Vit D3) 125 MCG CAPSULE (5,000 UNITS) PO (09:22)
[2024-11-22] MEDS: Senna/Docusate Sodium 1 Tablet PO ×2 (09:22→20:56)
[2024-11-22] MEDS: Lisinopril 20 MG Tablet PO ×2 (09:22→20:57)
[2024-11-22 09:31] VITALS: BP 121/59; PULSE 60; RESP 18; O2SAT 98
[2024-11-22 11:30] VITALS: TEMP 36.6
[2024-11-22] MEDS: Ensure Plus High Protein 120 ML LIQUID PO ×2 (13:55→16:26)
--- NOTE | 2024-11-22 15:53 | NURSING ---
PER PT AND FAMILY,PT STATED SHE THINKS SHE HAS A APPOINTMENT WITH THIS MONTH. PLEASE CALL OFFICE TO CONFIRM ON Saturday11/23/24.
[2024-11-22 16:31] VITALS: BP 113/56; PULSE 60
[2024-11-22 20:51] VITALS: BP 119/55; PULSE 60
[2024-11-22] MEDS: 0.9% Saline Lock 10 ML Syringe IV (20:55)
[2024-11-22] MEDS: Atorvastatin Calcium 80 MG Tablet PO (20:56)
[2024-11-23] MEDS: Calcium Carbonate 500 MG Tablet PO ×2 (03:25→17:06)
[2024-11-23] MEDS: oxyCODONE 5 MG Tablet PO ×2 (03:27→23:23)
[2024-11-23] MEDS: Acetaminophen 500 MG Tablet 1000 MG PO ×3 (06:02→20:32)
[2024-11-23] MEDS: Menthol/Lanolin/Calamine/Znox 113 GM Tube 1 APPLIC TOPICAL ×3 (06:02→20:31)
[2024-11-23] MEDS: Ensure Plus High Protein 120 ML LIQUID PO ×3 (08:46→17:06)
[2024-11-23] MEDS: Potassium Chloride Oral Tablet 20 MEQ PO (08:49)
[2024-11-23] MEDS: Clopidogrel Bisulfate 75 MG Tablet PO (08:49)
[2024-11-23] MEDS: Cholecalciferol (Vit D3) 125 MCG CAPSULE (5,000 UNITS) PO (08:49)
[2024-11-23] MEDS: Senna/Docusate Sodium 1 Tablet PO ×2 (08:49→20:32)
[2024-11-23] MEDS: Aspirin 81 MG TAB.CHEW PO (08:49)
[2024-11-23 08:51] VITALS: BP 92/42; PULSE 60; O2SAT 98
--- NOTE | 2024-11-23 09:25 | NURSING ---
Addendum entered by Susie De La Cruz 11/24/24 09:41: Call back, Tiana Wood will follow here, cancel office appt if resident still here at that time. Original Note: Spoke with Cynthia in vascular office, updated on consult. She will update Tiana Wood PA and will ask if patient needs to keep appt on 12/01/24.
--- NOTE | 2024-11-23 11:43 | NURSING ---
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 Her children are heading back to [place] and will have her grandson at home. Her lives w/her however they do not speak. She has her tablet and smartphone she uses w/her, she will watch tv, read and was given some word search puzzles. She has a sing on her door for [employer]. 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 Staff will encourage social activities, remind her of weekly activities and respect her right to say no.
--- NOTE | 2024-11-23 11:57 | CASEMGMT ---
Social Work SW met with patient to complete initial assessment. Introduced self and role. Verified contacts. Anel confirmed code status as full code. Educated to [facility] insurance with [employer] 11/23 and continued stay is not guaranteed with each review; required 3-day notice for DC. See SW assessment for barriers to DC and home environment. SW will continue to follow for DC planning. Bell Ramírez HAND TAPPER SUPERVISING DEPUTY
[2024-11-23 13:56] VITALS: BP 121/58; PULSE 60; RESP 18; TEMP 36.7; O2SAT 98
[2024-11-23] MEDS: Carvedilol 12.5 MG Tablet PO (14:27)
--- NOTE | 2024-11-23 16:54 | NURSING ---
Offered covid vaccine, VIS provided. Resident declines.
[2024-11-23 20:00] VITALS: PULSE 60; O2SAT 97
[2024-11-23] MEDS: Atorvastatin Calcium 80 MG Tablet PO (20:33)
[2024-11-23] MEDS: 0.9% Saline Lock 10 ML Syringe IV (20:34)
[2024-11-23] MEDS: Lisinopril 20 MG Tablet PO (20:36)
[2024-11-23 20:46] VITALS: BP 144/54; PULSE 60
[2024-11-24] MEDS: oxyCODONE 5 MG Tablet PO ×2 (04:18→09:31)
[2024-11-24] MEDS: Menthol/Lanolin/Calamine/Znox 113 GM Tube 1 APPLIC TOPICAL ×2 (05:46→12:51)
[2024-11-24] MEDS: Acetaminophen 500 MG Tablet 1000 MG PO ×3 (05:47→21:14)
[2024-11-24 09:19] VITALS: BP 109/47; PULSE 61; RESP 18; TEMP 36.1; O2SAT 97
[2024-11-24] MEDS: Furosemide 40 MG Tablet PO (09:22)
[2024-11-24] MEDS: Senna/Docusate Sodium 1 Tablet PO ×2 (09:22→21:14)
[2024-11-24] MEDS: Carvedilol 12.5 MG Tablet PO ×2 (09:22→17:38)
[2024-11-24] MEDS: Cholecalciferol (Vit D3) 125 MCG CAPSULE (5,000 UNITS) PO (09:22)
[2024-11-24] MEDS: Lisinopril 20 MG Tablet PO ×2 (09:22→21:14)
[2024-11-24] MEDS: Potassium Chloride Oral Tablet 20 MEQ PO (09:22)
[2024-11-24] MEDS: Clopidogrel Bisulfate 75 MG Tablet PO (09:22)
[2024-11-24] MEDS: Aspirin 81 MG TAB.CHEW PO (09:23)
[2024-11-24] MEDS: Ensure Plus High Protein 120 ML LIQUID PO ×2 (12:51→17:35)
--- NOTE | 2024-11-24 13:44 | CON.PCM.SX_ITS ---
Assessment & Plan Assessment/Plan (1) Atherosclerosis of [place] arteries of extremities with intermittent claudication, left leg: (2) PAD (peripheral artery disease): PLAN: Plan I removed the Prevena vacuum dressings from the bilateral groin incision sites; the incision sites are satisfactory in appearance, well-healing. I did not appreciate any drainage on my exam, OK to leave these sites open to air, keep clean and dry. If drainage is noted, then OK to apply dry gauze dressing and change daily or more often as needed to keep clean and dry. OK for showers, soap and water can rinse over the incision sites, but dry well after. No baths/submerging the incisions in water for at least 2 additional weeks. Vascular exam of the bilateral lower extremities remains stable; + signal in the bypass and bilateral DP/PT. Current L foot tingling pain sounds consistent with reperfusion, continue to monitor and if worsening would obtain arterial duplex and ABIs more urgently. Otherwise, will place these orders to be completed on an outpatient basis. Please continue with ASA 81mg daily, Plavix 75mg daily, and Atorvastatin 80mg daily. She is currently scheduled for outpatient follow-up in the office on 12/01/24; if she remains in TCU will plan to see her here next week, if she is discharged at that time will see her in the office. HPI Consult Data Date of Consult: 11/24/24 HPI Narrative HPI Narrative: ANA JIMENEZ, is a 79 F who is admitted to TCU for ongoing rehabilitation prior to returning to home after recent R common/external iliac artery lithotripsy angioplasty and stent, R common fem endart, R to L fem-fem bypass, and bilateral sartorius flaps on 11/17/24 to address LLE rest pain and severe multilevel disease bilaterally. She reports she is doing well overall, she still has some expected discomfort at the groin incision sites but this continues to improve day by day. She will has the bilateral Prevena vacuum dressings in place, these have been maintaining good seal. She reports some tingling pain into her L foot but otherwise no pain in her legs with walking. She feels she has been progressing well with therapy. She did have postoperative anemia and received 1 unit PRBC postop. Repeat CBC on 11/21 showed Hgb uptrending to 9.9. [facility] Medical History (Updated 05/30/25 @ 20:[address] 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) Nicotine dependence Essential (primary) hypertension Ischemic cardiomyopathy Chronic systolic congestive heart failure Atrioventricular block Old myocardial infarction Atherosclerosis of coronary artery 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 Tobacco abuse Psoriasis Hypercholesteremia Syncope and collapse Hyperlipemia Hypokalemia History of syncope History of sinus bradycardia Home Medications ?Medication ?Instructions ?Recorded ?Last Taken ?Type aspirin 81 mg chewable tablet 81 mg PO DAILY@0800 bloo d thinner 09/27/16 11/20/24 08:50 History nitroglycerin 0.4 mg sublingual 0.4 mg sublingual Q5-1 5M PRN chest 10/16/22 Unknown Rx tablet pain #25 tabs potassium chloride 10 mEq 20 meq (2 x 10 mEq) PO DAILY 10/21/23 11/20/24 08:50 Rx capsule,extended release supplement #180 caps vitamin D3 125 mcg (5,000 1 cap PO DAILY supplement 11/16/24 History unit)-vitamin K2 100 mcg capsule carvedilol 12.5 mg tablet (Coreg) 12.5 mg PO BID bp #1 80 tabs 03/16/24 11/20/24 16:15 Rx lisinopril 20 mg tablet 20 mg PO BID bp #180 tabs 11/16/24 Rx clopidogrel 75 mg tablet 75 mg PO DAILY blood thinner #90 10/27/24 11/20/24 08:50 Rx tabs atorvastatin 80 mg tablet 80 mg PO QHS cholesterol 06/1711/19/24 22:00 History calcium carbonate 500 1 - 2 tab PO .as directed [place] N 11/02/24 Unknown History mg-simethicone 20 mg chewable reflux tablet furosemide 40 mg tablet 40 mg PO DAILY dieretic 10/2211/20/24 08:50 History magnesium sulfate 1 ea topical TID PRN PRN 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 11/02/24 Unknown History acetaminophen 500 mg tablet 1,000 mg (2 x 500 mg) PO Q 8 Pain 11/20/24 11/20/24 13:30 Rx #0 tabs docusate sodium 100 mg capsule 100 mg PO BID PRN PRN C onstipation 11/20/24 11/20/24 13:30 Rx #0 caps oxycodone 5 mg tablet 5 mg PO Q8H PRN PRN Pain Sco re 11/20/24 11/20/24 16:10 Rx 4-10 5 days #15 tabs Allergy/AdvReac Type Severity Reaction Status Date / Time No Known Allergies Allergy Verified 11/17/24 06:15 Family History Father CAD (coronary artery disease) Myocardial infarction Brother CAD (coronary artery disease) Myocardial infarction Mother Cancer Surgical History History of electrophysiologic study (03/07/12) Biventricular ICD (implantable cardioverter-defibrillator) in place (08/04/20) History of coronary artery stent placement (03/06/12) H/O coronary artery bypass surgery (04/28/97) Saphenous vein graft to CFX saphenous vein graft to RCA H/O tubal ligation History of left heart catheterization (06/27/20) Social History household members: spouse and family housing: house Smoking Status: Current every day smoker tobacco type: cigarettes second hand exposure: Yes alcohol intake: current alcohol intake frequency: holidays/special occasions only substance use type: does not use caffeine: Yes Type: carbonated beverages Number of servings: 4 what type of physical activity do you participate in: none seatbelt use: always do you feel safe at home: Yes Physical Exam Const alert, oriented x3 and no apparent distress General Appearance: cooperative HEENT normocephalic, head/scalp atraumatic, external ears normal and external nose normal Eyes EOMs intact bilaterally General Eye: normal appearance of both eyes Neck General: normal visual inspection and trachea midline Resp normal respiratory effort, normal air movement, no retractions and no use of accessory muscles Effort and Inspection: able to speak in complete sentences; Negative for labored, grunting or stridor Cardio regular rate and regular rhythm Extremity Extremity Narrative: Bilateral groin incision sites with dermabond and prineo intact, well-healing. No dehiscence, active drainage, erythema, fluctuance, induration, focal edema, ecchymosis. R DP pulse palpable, PT with good doppler signal L DP and PT pulses nonpalpable but strong signals by doppler Good doppler signal through the bypass graft Bilateral feet are appropriately warm, no cyanotic/ruborous discoloration. Skin no rashes or lesions noted Neuro moves all extremities and no focal motor deficits Speech: speech normal Psych mental status grossly normal Appearance: grossly normal Attitude: calm and engaged Activity / Motor Behavior: appropriate eye contact Speech: normal speech Lab / Micro Data 11/21/24 05:10 11/22/24 05:10 Charges/Coding Procedures Integumentary [id number]: [id number] Global Visit
[2024-11-24 15:46] VITALS: BMI 26.9
[2024-11-24 17:42] VITALS: BP 132/80; PULSE 60; RESP 18
[2024-11-24] MEDS: Calcium Carbonate 500 MG Tablet PO (18:51)
[2024-11-24] MEDS: Atorvastatin Calcium 80 MG Tablet PO (21:14)
[2024-11-24 21:24] VITALS: BP 142/44; PULSE 60
[2024-11-25 02:05] VITALS: PULSE 61; RESP 16; O2SAT 99
[2024-11-25] MEDS: Calcium Carbonate 500 MG Tablet PO (02:08)
[2024-11-25] MEDS: oxyCODONE 5 MG Tablet PO ×3 (02:08→21:27)
[2024-11-25] MEDS: Acetaminophen 500 MG Tablet 1000 MG PO ×3 (06:17→21:21)
[2024-11-25] MEDS: Menthol/Lanolin/Calamine/Znox 113 GM Tube 1 APPLIC TOPICAL ×3 (06:18→21:24)
[2024-11-25] MEDS: Aspirin 81 MG TAB.CHEW PO (08:19)
[2024-11-25] MEDS: Carvedilol 12.5 MG Tablet PO ×2 (08:19→17:35)
[2024-11-25] MEDS: Ensure Plus High Protein 120 ML LIQUID PO ×3 (08:19→17:34)
[2024-11-25] MEDS: Potassium Chloride Oral Tablet 20 MEQ PO (08:20)
[2024-11-25] MEDS: Clopidogrel Bisulfate 75 MG Tablet PO (08:20)
[2024-11-25] MEDS: Furosemide 40 MG Tablet PO (08:20)
[2024-11-25] MEDS: Cholecalciferol (Vit D3) 125 MCG CAPSULE (5,000 UNITS) PO (08:21)
[2024-11-25] MEDS: Lisinopril 20 MG Tablet PO ×2 (08:21→21:22)
[2024-11-25] MEDS: Senna/Docusate Sodium 1 Tablet PO ×2 (08:21→21:22)
--- NOTE | 2024-11-25 09:34 | CASEMGMT ---
Social Work IDT met with patient and dtr via conference call for care plan meeting. Discussed patient's progress in PT/OT/SN. Educated to [facility] insurance with [employer] / and continued stay is not guaranteed with each review. Provided pt/family with written communication of insurance process and copay coverage during stay. Pt is experiencing dizziness, which can impact pt's progress. Pt is improving, but concerned about safety at home without assistance d/t dizziness. Dtr also stressed pt needs to return to OF as pt does not have assistance. SW reiterated insurance issues the DC date with a 3-day notice, which may be prior to when pt or family feel she is ready to DC home. SW educated to hiring caregivers in the home at an OOP cost. Educated to skilled HHC and OP therapy, that this worker can coordinate at time of DC. Pt/dtr expressed understanding. SW will continue to follow for DC planning. Bell Ramírez ROUTE DRIVER [employer]IN MACHINES MASTER OCEAN
[2024-11-25 10:00] VITALS: BP 131/64; PULSE 60; RESP 18; TEMP 36.6; O2SAT 97
--- NOTE | 2024-11-25 10:10 | RAD_ITS ---
PROCEDURE: ABDOMEN SINGLE VIEW 11/25/2024 REASON FOR EXAM: FEELS GASSY. TECHNIQUE: Single view abdomen. COMPARISON: None. FINDINGS: There is a nonobstructive bowel gas pattern. There are multiple endoluminal stents in the right common iliac and right external iliac arteries. There are vascular clips in the left inguinal region. Note is made of a multi lead pacemaker in the patient is status post median sternotomy. There is multilevel degenerative disc disease of the lower lumbar spine. 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 RAD/Abdomen Single View IMPRESSION: No evidence of bowel obstruction. Other findings as noted. Reading Location: [id number]
[2024-11-25] MEDS: SimETHICONE 80 MG Chewable Tablet PO ×4 (10:51→21:21)
--- NOTE | 2024-11-25 15:05 | NURSING ---
patient with complaints of gas after meals. updated MD. new orders of KUB and simethicone 80 mg after meals and at HS. patient would like family notified with new orders. prefers to let daughters andres or lindsay know. telephone call to daughter andres who voiced understanding of new orders.
--- NOTE | 2024-11-25 16:07 | CASEMGMT ---
BIMS () and PHQ2 (0) interviews completed on this date for MDS assessment. LORENA Potter
[2024-11-25] MEDS: Atorvastatin Calcium 80 MG Tablet PO (21:22)
[2024-11-25 21:30] VITALS: BP 122/46; PULSE 60; RESP 16
[2024-11-26 03:05] VITALS: PULSE 60; RESP 18; O2SAT 96
[2024-11-26] MEDS: Menthol/Lanolin/Calamine/Znox 113 GM Tube 1 APPLIC TOPICAL ×3 (06:17→20:30)
[2024-11-26] MEDS: Acetaminophen 500 MG Tablet 1000 MG PO ×3 (06:17→20:28)
[2024-11-26] MEDS: Ensure Plus High Protein 120 ML LIQUID PO ×3 (08:48→17:59)
[2024-11-26] MEDS: Magnesium Citrate 300 ML 150 ML PO (08:48)
[2024-11-26] MEDS: Potassium Chloride Oral Tablet 20 MEQ PO (08:51)
[2024-11-26] MEDS: Aspirin 81 MG TAB.CHEW PO (08:52)
[2024-11-26] MEDS: Clopidogrel Bisulfate 75 MG Tablet PO (08:52)
[2024-11-26] MEDS: SimETHICONE 80 MG Chewable Tablet PO ×4 (08:52→20:28)
[2024-11-26] MEDS: Cholecalciferol (Vit D3) 125 MCG CAPSULE (5,000 UNITS) PO (08:52)
[2024-11-26] MEDS: Furosemide 40 MG Tablet PO (08:52)
[2024-11-26] MEDS: Carvedilol 12.5 MG Tablet PO ×2 (08:52→17:59)
[2024-11-26] MEDS: Senna/Docusate Sodium 1 Tablet PO (08:52)
[2024-11-26] MEDS: Lisinopril 20 MG Tablet PO (08:52)
[2024-11-26 08:56] VITALS: BP 111/49; PULSE 62; RESP 16; TEMP 36.5; O2SAT 99
--- NOTE | 2024-11-26 11:01 | MDS.RN ---
Pain assessment for MDS complete.
--- NOTE | 2024-11-26 16:14 | CHAPLAIN ---
Type of Pastoral Visit _x__ Initial Visit ___ Follow-up Visit ___ On-call Visit ___ General Patient Visit ___ Spiritual Assessment ___ Family Conference ___ Bereavement ___ Rapid Response ___ Code Blue ___ Other (describe below) Pastoral Care Referral From _x__ Patient ___ Family ___ Nurse ___ Physician ___ Compressor Engineer ___ Loader Operator ___ Other (describe below) Sacrament/Intervention _x__ Active listening ___ Anointing ___ Rastafarian ___ Bereavement ___ Communion _x__ Jelena exploration ___ ___ Life review _x__ Prayer ___ Reconciliation ___ Sacrament of Sick ___ Supportive presence ___ Wedding ___ Other (describe below) Pastoral Comments patient acknowledged that her package wrapper had been in to visit already today; patient continues on the government of rastafari life and how pastors come and go; pt states that she has family but that they are not able to help her; pt wants to get home soon; pt welcomes presence and prayer
[2024-11-26] MEDS: 0.9% Saline Lock 10 ML Syringe IV (18:01)
[2024-11-26 20:23] VITALS: BP 98/52; PULSE 59
[2024-11-26] MEDS: oxyCODONE 5 MG Tablet PO (20:27)
[2024-11-26] MEDS: Atorvastatin Calcium 80 MG Tablet PO (20:29)
[2024-11-27] MEDS: Acetaminophen 500 MG Tablet 1000 MG PO ×3 (05:48→20:31)
[2024-11-27] MEDS: Menthol/Lanolin/Calamine/Znox 113 GM Tube 1 APPLIC TOPICAL ×2 (05:50→12:06)
[2024-11-27 05:51] LABS: Absolute Lymphocyte Count 1.95 X10^3/uL (0.83-4.51); Absolute Neutrophil Count 5.6 X10^3/uL (2.0-7.7); Basophil# 0.03 X10^3/uL; Basophil% 0.4 % (0-1); Eosinophil# 0.13 X10^3/uL; Eosinophils% 1.6 % (0-5); Hematocrit 29.9 % (37-47); Hemoglobin 10.1 g/dL (12.0-15.0); Lymphocyte # 1.95 X10^3/ul (0.83-4.51); Lymphocyte % 23.4 % (19-41); Mean Corp Hgb Conc 33.8 g/dL (32-36); Mean Corpuscular Hgb 31.4 pg (27.0-32.0); Mean Corpuscular Volume 92.9 fL (81-99); Mean Platelet Vol. 9.6 fl (6.2-12.0); Monocyte# 0.55 X10^3/uL; Monocyte% 6.6 % (0-10); NRBC Flagged by Analyzer 0 % (0-5); Neutrophil # 5.64 X10^3/uL (2.7-7.7); Neutrophil % 67.4 % (47-70); Platelet Count 302 K/mm3 (150-450); RBC Distribution Width CV 14.3 % (11.6-14.6); RBC Distribution Width SD 47.8 fl (35.1-43.9); Red Blood Count 3.22 M/mm3 (4.2-5.4); White Blood Count 8.4 K/mm3 (4.4-11.0)
[2024-11-27 06:21] LABS: Anion Gap 10 (5-15); BUN 19 mg/dL (4-19); BUN/Creat Ratio 20.9 RATIO (10-20); Carbon Dioxide 23.9 mmol/L (21.0-32.0); Chloride 104 mmol/L (98-108); Creatinine, Serum 0.92 mg/dL (0.70-1.20); EST Glomerular Filtration Rate 64 (>60); Estimated Creatinine Clearance 45.03 ml/min (50-250); Glucose 112 mg/dL (70-99); Potassium 4.5 mmol/L (3.3-5.1); Sodium Level 138 mmol/L (133-145)
[2024-11-27 08:20] VITALS: BP 115/51; PULSE 61; RESP 18; TEMP 36.1; O2SAT 98
[2024-11-27] MEDS: Lisinopril 20 MG Tablet PO ×2 (08:23→20:31)
[2024-11-27] MEDS: Cholecalciferol (Vit D3) 125 MCG CAPSULE (5,000 UNITS) PO (08:23)
[2024-11-27] MEDS: Senna/Docusate Sodium 1 Tablet PO ×2 (08:23→20:31)
[2024-11-27] MEDS: SimETHICONE 80 MG Chewable Tablet PO ×4 (08:23→20:30)
[2024-11-27] MEDS: Furosemide 40 MG Tablet PO (08:24)
[2024-11-27] MEDS: Aspirin 81 MG TAB.CHEW PO (08:24)
[2024-11-27] MEDS: Carvedilol 12.5 MG Tablet PO ×2 (08:24→18:30)
[2024-11-27] MEDS: Ensure Plus High Protein 120 ML LIQUID PO ×3 (08:24→18:28)
[2024-11-27] MEDS: Clopidogrel Bisulfate 75 MG Tablet PO (08:24)
[2024-11-27] MEDS: Potassium Chloride Oral Tablet 20 MEQ PO (08:24)
[2024-11-27] MEDS: oxyCODONE 5 MG Tablet PO (14:14)
--- NOTE | 2024-11-27 14:37 | CASEMGMT ---
Social Work SW provided pt with information on smoking cessation program per request at admission. Bell Ramírez SUPERVISOR PR[employer] LIN[employer] SYSTEMS ANALYST
[2024-11-27 20:30] VITALS: BP 124/51; PULSE 60
[2024-11-27] MEDS: Atorvastatin Calcium 80 MG Tablet PO (20:30)
[2024-11-28] MEDS: Acetaminophen 500 MG Tablet 1000 MG PO ×3 (04:10→20:31)
[2024-11-28] MEDS: oxyCODONE 5 MG Tablet PO ×3 (04:10→17:03)
[2024-11-28] MEDS: 0.9% Saline Lock 10 ML Syringe IV (08:35)
[2024-11-28] MEDS: Ensure Plus High Protein 120 ML LIQUID PO ×3 (08:44→17:00)
[2024-11-28] MEDS: Carvedilol 12.5 MG Tablet PO ×2 (08:45→17:00)
[2024-11-28] MEDS: Aspirin 81 MG TAB.CHEW PO (08:45)
[2024-11-28] MEDS: Furosemide 40 MG Tablet PO (08:46)
[2024-11-28] MEDS: SimETHICONE 80 MG Chewable Tablet PO ×4 (08:46→20:32)
[2024-11-28] MEDS: Potassium Chloride Oral Tablet 20 MEQ PO (08:46)
[2024-11-28] MEDS: Senna/Docusate Sodium 1 Tablet PO ×2 (08:47→20:32)
[2024-11-28] MEDS: Clopidogrel Bisulfate 75 MG Tablet PO (08:47)
[2024-11-28] MEDS: Lisinopril 20 MG Tablet PO ×2 (08:48→20:31)
[2024-11-28] MEDS: Cholecalciferol (Vit D3) 125 MCG CAPSULE (5,000 UNITS) PO (08:48)
[2024-11-28 08:52] VITALS: BP 102/60; PULSE 61; RESP 18; TEMP 36.3; O2SAT 99
[2024-11-28] MEDS: Tuberculin,Purif.prot.deriv. 50 TU/ML Vial 0.1 ML ID (13:43)
[2024-11-28 15:15] VITALS: PULSE 62; RESP 18; O2SAT 98
[2024-11-28 17:05] VITALS: BP 114/40; PULSE 60; O2SAT 100
[2024-11-28] MEDS: Atorvastatin Calcium 80 MG Tablet PO (20:31)
[2024-11-29] MEDS: Acetaminophen 500 MG Tablet 1000 MG PO ×3 (05:20→20:43)
[2024-11-29 09:03] VITALS: BP 102/32; PULSE 60; RESP 16; TEMP 35.8; O2SAT 98
[2024-11-29] MEDS: Potassium Chloride Oral Tablet 20 MEQ PO (09:06)
[2024-11-29] MEDS: Aspirin 81 MG TAB.CHEW PO (09:06)
[2024-11-29] MEDS: Carvedilol 12.5 MG Tablet PO ×2 (09:06→17:33)
[2024-11-29] MEDS: Furosemide 40 MG Tablet PO (09:07)
[2024-11-29] MEDS: SimETHICONE 80 MG Chewable Tablet PO ×4 (09:07→20:43)
[2024-11-29] MEDS: Lisinopril 20 MG Tablet PO ×2 (09:08→20:43)
[2024-11-29] MEDS: Clopidogrel Bisulfate 75 MG Tablet PO (09:08)
[2024-11-29] MEDS: Cholecalciferol (Vit D3) 125 MCG CAPSULE (5,000 UNITS) PO (09:08)
[2024-11-29] MEDS: Senna/Docusate Sodium 1 Tablet PO ×2 (09:08→20:43)
[2024-11-29] MEDS: Ensure Plus High Protein 120 ML LIQUID PO ×2 (09:13→11:41)
[2024-11-29 17:31] VITALS: BP 127/52; PULSE 60
[2024-11-29] MEDS: oxyCODONE 5 MG Tablet PO ×2 (17:36→22:15)
[2024-11-29] MEDS: 0.9% Saline Lock 10 ML Syringe IV (20:43)
[2024-11-29] MEDS: Atorvastatin Calcium 80 MG Tablet PO (20:43)
[2024-11-29 20:48] VITALS: PULSE 60; RESP 16
[2024-11-29 20:58] VITALS: BP 131/47; PULSE 60
[2024-11-30] MEDS: oxyCODONE 5 MG Tablet PO ×4 (03:30→21:48)
[2024-11-30] MEDS: Acetaminophen 500 MG Tablet 1000 MG PO ×3 (05:21→21:49)
[2024-11-30 05:25] VITALS: PULSE 60; RESP 16
--- NOTE | 2024-11-30 09:13 | NURSING ---
Legal Editor Note; MDS for 11/27/2024 Complete
[2024-11-30] MEDS: Ensure Plus High Protein 120 ML LIQUID PO (10:10)
[2024-11-30] MEDS: Carvedilol 12.5 MG Tablet PO ×2 (10:11→17:11)
[2024-11-30] MEDS: Aspirin 81 MG TAB.CHEW PO (10:11)
[2024-11-30] MEDS: Clopidogrel Bisulfate 75 MG Tablet PO (10:12)
[2024-11-30] MEDS: Potassium Chloride Oral Tablet 20 MEQ PO (10:12)
[2024-11-30] MEDS: Cholecalciferol (Vit D3) 125 MCG CAPSULE (5,000 UNITS) PO (10:12)
[2024-11-30] MEDS: Furosemide 40 MG Tablet PO (10:12)
[2024-11-30] MEDS: SimETHICONE 80 MG Chewable Tablet PO ×4 (10:12→21:49)
[2024-11-30] MEDS: Senna/Docusate Sodium 1 Tablet PO ×2 (10:12→21:49)
[2024-11-30] MEDS: Lisinopril 20 MG Tablet PO ×2 (10:13→21:49)
[2024-11-30] MEDS: 0.9% Saline Lock 10 ML Syringe IV ×2 (10:15→21:48)
[2024-11-30 10:18] VITALS: BP 108/55; PULSE 60; RESP 16; TEMP 35.9; O2SAT 98
--- NOTE | 2024-11-30 12:12 | NURSING ---
Offered covid vaccine, VIS provided. Resident declines.
[2024-11-30 17:14] VITALS: BP 127/64; PULSE 60; O2SAT 97
[2024-11-30] MEDS: Atorvastatin Calcium 80 MG Tablet PO (21:49)
[2024-11-30 21:54] VITALS: BP 140/57; PULSE 60
[2024-12-01] MEDS: Calcium Carbonate 500 MG Tablet PO (01:02)
[2024-12-01] MEDS: Acetaminophen 500 MG Tablet 1000 MG PO ×3 (06:04→19:54)
[2024-12-01] MEDS: Ensure Plus High Protein 120 ML LIQUID PO (08:27)
[2024-12-01] MEDS: Furosemide 40 MG Tablet PO (08:28)
[2024-12-01] MEDS: SimETHICONE 80 MG Chewable Tablet PO ×4 (08:28→19:54)
[2024-12-01] MEDS: Potassium Chloride Oral Tablet 20 MEQ PO (08:28)
[2024-12-01] MEDS: Carvedilol 12.5 MG Tablet PO ×2 (08:28→16:17)
[2024-12-01] MEDS: Aspirin 81 MG TAB.CHEW PO (08:28)
[2024-12-01] MEDS: Clopidogrel Bisulfate 75 MG Tablet PO (08:28)
[2024-12-01] MEDS: Lisinopril 20 MG Tablet PO ×2 (08:29→19:54)
[2024-12-01] MEDS: Cholecalciferol (Vit D3) 125 MCG CAPSULE (5,000 UNITS) PO (08:29)
--- NOTE | 2024-12-01 12:20 | MDS.RN ---
Information for the MDS was obtained from review of the clinical record, interview of resident, staff, and direct observation of resident?s care.
[2024-12-01 14:24] VITALS: BP 145/58; PULSE 61; RESP 17; TEMP 36.4; O2SAT 98
[2024-12-01 14:28] VITALS: BMI 26.4
[2024-12-01] MEDS: Menthol/Lanolin/Calamine/Znox 113 GM Tube 1 APPLIC TOPICAL (15:45)
[2024-12-01] MEDS: Magnesium Citrate 300 ML PO (15:48)
--- NOTE | 2024-12-01 15:58 | NURSING ---
Patient unsure of last bowel movement. Requested a laxative. Mag Citrate given per PRN orders.
[2024-12-01] MEDS: 0.9% Saline Lock 10 ML Syringe IV (16:18)
[2024-12-01] MEDS: Senna/Docusate Sodium 1 Tablet PO (19:53)
[2024-12-01] MEDS: Atorvastatin Calcium 80 MG Tablet PO (19:55)
[2024-12-01] MEDS: oxyCODONE 5 MG Tablet PO (19:57)
[2024-12-02] MEDS: Acetaminophen 500 MG Tablet 1000 MG PO ×3 (05:17→20:59)
[2024-12-02] MEDS: Carvedilol 12.5 MG Tablet PO ×2 (08:09→17:36)
[2024-12-02] MEDS: Aspirin 81 MG TAB.CHEW PO (08:09)
[2024-12-02] MEDS: Potassium Chloride Oral Tablet 20 MEQ PO (08:10)
[2024-12-02] MEDS: Clopidogrel Bisulfate 75 MG Tablet PO (08:10)
[2024-12-02] MEDS: Lisinopril 20 MG Tablet PO ×2 (08:10→20:59)
[2024-12-02] MEDS: Furosemide 40 MG Tablet PO (08:10)
[2024-12-02] MEDS: SimETHICONE 80 MG Chewable Tablet PO ×4 (08:11→21:00)
[2024-12-02] MEDS: Cholecalciferol (Vit D3) 125 MCG CAPSULE (5,000 UNITS) PO (08:11)
[2024-12-02 08:16] VITALS: BP 119/46; PULSE 60; RESP 17; TEMP 36.4; O2SAT 97
--- NOTE | 2024-12-02 09:26 | NURSING ---
Addendum entered by Susie De La Cruz 12/02/24 09:52: Updated resident and dtr Sherri via phone. Original Note: Call from outpatient scheduling that Tiana LOCKWOOD ordered lower extremity blood flow testing. Vascular tests scheduled for 12/11/24 at 0900 and 1000.
[2024-12-02 10:00] VITALS: RESP 18
[2024-12-02] MEDS: Ensure Plus High Protein 120 ML LIQUID PO ×2 (11:58→17:47)
[2024-12-02] MEDS: oxyCODONE 5 MG Tablet PO ×3 (12:19→22:55)
--- NOTE | 2024-12-02 13:02 | CASEMGMT ---
Social Work Insurance issued LCD 12/04, DC 12/05. SW spoke with pt at bedside to notify of DC date. SW provided NOMNC to pt and educated to appeal rights. Pt verbalized understanding and denied appeal. Pt is agreeable to DC, no concerns voiced. SW discussed HHC vs OP therapy. Pt prefers OP therapy. SW verbalized local options. Pt prefers [facility] for PT. SW to place referral. Pt requested [facility]. SW to coordinate and deliver to room prior to DC. Pt appreciative. Family to transport. - THANH faxed referral to [facility] PT. Sent referral to [facility] via [employer]. Plan: DC home 12/05, [facility] PT, [facility] Bell Ramírez USER SUPPORT SPECIALIST TRAVELING NURSE
[2024-12-02] MEDS: Menthol/Lanolin/Calamine/Znox 113 GM Tube 1 APPLIC TOPICAL (14:46)
--- NOTE | 2024-12-02 20:12 | DS.PCM_ITS ---
Providers Date of Admission: 11/20/24 Primary Care Physician: Vanessa Primary Care Phys Consultations 11/20/24 20:32 Consult: Vascular Surgery Routine Consulting Provider: Tiana Wood Reason for Consult: s/p bilateral lower extremity revascularization surgery. EMERGENT Consult: No MD Notified: Yes Date Notified: 11/20/24 Time Notified: 20:32 Method of Notification: Answering Service Comments:: spoke with Cynthia Reason For Visit: BILATERAL FEMORAL ENDARTERECTOMY Diagnosis Discharge Diagnosis (1) Atherosclerosis of [place] arteries of extremities with intermittent claudication, left leg: Status: Chronic Code(s): I70.212 - Atherosclerosis of [place] arteries of extremities with intermittent claudication, left leg (2) PAD (peripheral artery disease): Status: Acute Code(s): I73.9 - Peripheral vascular disease, unspecified Plan 79 year old female with below past medical history hospitalized with bilateral lower extremity pad, underwent bilateral lower extremity revascularization 11/17/[address] Dc, postoperative course complicated by postoperative anemia requiring transfusion, transient hypotension, admitted to TCU with debility, here for rehabilitation, strengthening, prior to discharge home with spouse/family. * Debility - PT/OT. * Pain - Tylenol 1000mg q8, Oxycodone 5mg q4 prn pain (4-10). * Bowel - senna/colace 1 tablet bid, Magnesium citrate 300mL daily prn. * Adult immunization - Administer pneumonia vaccine, covid vaccine, flu vaccine as appropriate. * DVT prophylaxis - Hold, on dual antiplatelet therapy. * Bilateral lower extremity pad s/p revascularization - Asprin 81mg daily, Plavix 75mg daily, consult Tiana Wood to follow, prevena VAC thru 11/25/2024. * Hyperlipidemia - Atorvastatin 80mg qhs. * Indigestion - TUMS 500mg q6 prn. * Chronic HFrEF - Coreg 12.5mg bidcm, Lisinopril 20mg bid, Furosemide 40mg daily. * Vitamin D deficiency - D3 125mcg daily. * Coronary artery disease - Coreg 12.5mg bid, Lisinopril 20mg bid, Plavix 75mg daily, Aspirin 81mg daily, NTG 0.4mg sl q5m prn. * Tobacco abuse - Nicotine 21mg td daily. * Hypokalemia - KCL 20meq daily. Medications at Discharge Home Medications aspirin 81 mg chewable tablet 81 mg PO DAILY@0800 blood thinner 09/27/16 nitroglycerin 0.4 mg sublingual tablet 0.4 mg sublingual Q5-15M PRN chest pain #25 tabs 10/16/22 potassium chloride 10 mEq capsule,extended release 20 meq (2 x 10 mEq) PO DAILY supplement #180 caps 10/21/23 vitamin D3 125 mcg (5,000 unit)-vitamin K2 100 mcg capsule 1 cap PO DAILY supplement 12/06/23 carvedilol 12.5 mg tablet (Coreg) 12.5 mg PO BID bp #180 tabs 03/16/24 lisinopril 20 mg tablet 20 mg PO BID bp #180 tabs 03/16/24 clopidogrel 75 mg tablet 75 mg PO DAILY blood thinner #90 tabs 10/27/24 atorvastatin 80 mg tablet 80 mg PO QHS cholesterol 11/02/24 calcium carbonate 500 mg-simethicone 20 mg chewable tablet 1 - 2 tab PO .as directed PRN reflux 11/02/24 furosemide 40 mg tablet 40 mg PO DAILY dieretic 11/02/24 acetaminophen 500 mg tablet 1,000 mg (2 x 500 mg) PO Q8 #0 tabs 12/02/24 oxycodone 5 mg tablet 5 mg PO Q4H PRN PRN Pain Score 4-10 7 days #42 tabs 12/02/24 sennosides 8.6 mg-docusate sodium 50 mg tablet (Stimulant Laxative Plus) 1 tab PO BID 30 days #60 tabs 12/02/24 simethicone 80 mg chewable tablet 80 mg PO PCHS 30 days #120 tabs 12/02/24 Hospital Course Operations - (See below.) Procedures None Summary of Care Provided Minutes Spent on Discharge: 35 Hospital Course: 79 year old female with below past medical history hospitalized with bilateral lower extremity pad, underwent bilateral lower extremity revascularization 11/17/[address] Dc, postoperative course complicated by postoperative anemia requiring transfusion, transient hypotension, admitted to TCU with debility, here for rehabilitation, strengthening, prior to discharge home with spouse/family. Discharge home 12/05/2024, [facility], FWW. FWW: Patient is unsafe to use a cane and requires a walker for ambulation in the home and the community. Physical Exam Const alert General Appearance: cooperative HEENT normocephalic Eyes PERRL and EOMs intact bilaterally Neck supple, no JVD and no carotid bruits Resp normal respiratory effort, normal air movement and clear to auscultation bilaterally Cardio regular rate and regular rhythm GI normal to inspection, nondistended, normoactive bowel sounds, non-tender and non-distended Extremity normal capillary refill General Extremity: Negative for edema Skin no rashes or lesions noted General Skin Exam: no breakdown Psych affect normal Appearance: appropriate Weight / BMI Weight Weight: 65.272 kg Body Mass Index (BMI) 26.4 ABG / Lab / Microbiology Data 11/27/24 05:11 11/27/24 05:11 D/C Instructions Discharge Diet: No restrictions Discharge Activity: Return to Normal Activity, May Shower and Use Walker Weight Bearing Status: Weight bearing as tolerated Call your doctor if you observe: Fever of 101 or Higher, Inability to urinate, Inability to have a bowel movement, Shortness of breath, Dizziness, Fainting spells, Swelling in the ankles, Chest pain and Uncontrolled pain DC O2, CPAP, BIPAP Needs Home O2 Discharge instructions: No Additional Instructions: Discharge home 12/05/2024, [facility], FWW. FWW: Patient is unsafe to use a cane and requires a walker for ambulation in the home and the community. Please Follow Up With: Vascular Studies When: 12/11/24 at 0900 and 1000. Meaningful Use Info Meaningful Use Meaningful Use Diagnoses (Choose all that apply): None applicable Ischemic Stroke Statin Dosing Therapy Reference: STATIN DOSE THERAPY REFERENCE: * Patients > 75 years receive moderate or high dose statin therapy. * Patients 75 years or YOUNGER should receive HIGH intensity statin dose unless contraindicated. You will be required to document reason for non-treatment if statin daily dose does not meet guidelines. HIGH DOSE STATIN THERAPY DAILY Atorvastatin > than or = to 40 mg Rosuvastatin > than or = to 20 mg Amlodipine + Atorvastatin > than or = to 2.5/40 mg Ezetimibe + Simvastatin 10/80 mg Simvastatin 80mg Discharge Plan Admission Admit Date/Time: 11/20/24 17:30 Primary Reason for Your Visit: Debility. Attending Provider: Shahid Raya Chi Primary Care Provider: Care Physician,No Primary Consulting Providers: Tiana Wood Instructions Additional Instructions / Restrictions: Discharge home 12/05/2024, [facility], FWW. FWW: Patient is unsafe to use a cane and requires a walker for ambulation in the home and the community. Discharge Orders/Prescriptions Prescriptions: New sennosides-docusate sodium [Stimulant Laxative Plus] 8.6-50 mg Tablet 1 tab PO BID 30 Days Qty: 60 0RF acetaminophen 500 mg Tablet 1,000 mg PO Q8 Qty: 0 0RF simethicone 80 mg Tablet,Chewable 80 mg PO PCHS 30 Days Qty: 120 0RF oxycodone 5 mg Tablet 5 mg PO Q4H PRN PRN (Reason: Pain Score 4-10) 7 Days Qty: 42 0RF Continued nitroglycerin 0.4 mg tablet, sublingual 0.4 mg SUBLINGUAL Q5-15M PRN (Reason: chest pain) Qty: 25 3RF Rx Instructions: until response; do not exceed 3 doses per event vitamin D3-vitamin K2 125 mcg (5,000 unit)-100 mcg capsule 1 cap PO DAILY aspirin 81 MG tablet,chewable 81 mg PO DAILY@0800 atorvastatin 80 mg tablet 80 mg PO QHS Patient Comments: [NO ORIGINAL SIG] calcium carbonate-simethicone 500-20 mg tablet,chewable 1 - 2 tab PO .as directed PRN (Reason: reflux) furosemide 40 mg tablet 40 mg PO DAILY potassium chloride 10 mEq capsule, extended release 20 meq PO DAILY Qty: 180 3RF lisinopril 20 mg tablet 20 mg PO BID Qty: 180 3RF carvedilol [Coreg] 12.5 mg tablet 12.5 mg PO BID Qty: 180 3RF clopidogrel 75 mg tablet 75 mg PO DAILY Qty: 90 3RF Discontinued magnesium sulfate Ointment 1 ea topical TID PRN PRN (Reason: cramps) acetaminophen 500 mg Tablet 1,000 mg PO Q8 Qty: 0 0RF docusate sodium 100 mg Capsule 100 mg PO BID PRN PRN (Reason: Constipation) Qty: 0 0RF oxycodone 5 mg Tablet 5 mg PO Q8H PRN PRN (Reason: Pain Score 4-10) 5 Days Qty: 15 0RF Referrals / Follow Up: Shahid Raya Chi, MD [Med Staff - Active Staff] - Within 1 Week (TCU Transition Care Management appointment.) Disposition Disposition (needs filled in before D/C Order can be placed): Home, Self Care
[2024-12-02] MEDS: Senna/Docusate Sodium 1 Tablet PO (20:59)
[2024-12-02] MEDS: Atorvastatin Calcium 80 MG Tablet PO (20:59)
[2024-12-03] MEDS: Acetaminophen 500 MG Tablet 1000 MG PO ×3 (05:40→19:47)
[2024-12-03] MEDS: Ensure Plus High Protein 120 ML LIQUID PO ×2 (08:44→12:03)
[2024-12-03] MEDS: Aspirin 81 MG TAB.CHEW PO (08:44)
[2024-12-03] MEDS: Potassium Chloride Oral Tablet 20 MEQ PO (08:45)
[2024-12-03] MEDS: Carvedilol 12.5 MG Tablet PO ×2 (08:45→17:31)
[2024-12-03] MEDS: Furosemide 40 MG Tablet PO (08:45)
[2024-12-03] MEDS: SimETHICONE 80 MG Chewable Tablet PO ×4 (08:45→19:47)
[2024-12-03] MEDS: Senna/Docusate Sodium 1 Tablet PO ×2 (08:46→19:47)
[2024-12-03] MEDS: Cholecalciferol (Vit D3) 125 MCG CAPSULE (5,000 UNITS) PO (08:46)
[2024-12-03] MEDS: Lisinopril 20 MG Tablet PO ×2 (08:46→19:47)
[2024-12-03] MEDS: Clopidogrel Bisulfate 75 MG Tablet PO (08:46)
[2024-12-03 08:48] VITALS: BP 107/42; PULSE 62; RESP 16; TEMP 36.3; O2SAT 98
[2024-12-03] MEDS: oxyCODONE 5 MG Tablet PO (12:39)
[2024-12-03 17:33] VITALS: BP 117/39; PULSE 60
[2024-12-03] MEDS: Atorvastatin Calcium 80 MG Tablet PO (19:48)
[2024-12-04] MEDS: oxyCODONE 5 MG Tablet PO ×2 (00:53→08:51)
[2024-12-04 00:58] VITALS: PULSE 56; RESP 16; O2SAT 98
[2024-12-04] MEDS: Acetaminophen 500 MG Tablet 1000 MG PO ×3 (05:12→21:14)
[2024-12-04 05:47] LABS: Absolute Lymphocyte Count 2.34 X10^3/uL (0.83-4.51); Absolute Neutrophil Count 4.2 X10^3/uL (2.0-7.7); Basophil# 0.03 X10^3/uL; Basophil% 0.4 % (0-1); Eosinophil# 0.12 X10^3/uL; Eosinophils% 1.7 % (0-5); Hematocrit 28.4 % (37-47); Hemoglobin 9.5 g/dL (12.0-15.0); Lymphocyte # 2.34 X10^3/ul (0.83-4.51); Lymphocyte % 32.6 % (19-41); Mean Corp Hgb Conc 33.5 g/dL (32-36); Mean Corpuscular Hgb 31.7 pg (27.0-32.0); Mean Corpuscular Volume 94.7 fL (81-99); Mean Platelet Vol. 9.5 fl (6.2-12.0); Monocyte# 0.49 X10^3/uL; Monocyte% 6.8 % (0-10); NRBC Flagged by Analyzer 0 % (0-5); Neutrophil # 4.17 X10^3/uL (2.7-7.7); Neutrophil % 58.2 % (47-70); Platelet Count 302 K/mm3 (150-450); RBC Distribution Width SD 51.6 fl (35.1-43.9); White Blood Count 7.2 K/mm3 (4.4-11.0)
[2024-12-04 06:33] LABS: Anion Gap 12 (5-15); BUN 18 mg/dL (4-19); BUN/Creat Ratio 23.4 RATIO (10-20); Calcium,Total 9.1 mg/dL (7.6-11.0); Chloride 104 mmol/L (98-108); Creatinine, Serum 0.75 mg/dL (0.70-1.20); EST Glomerular Filtration Rate 82 (>60); Estimated Creatinine Clearance 51.39 ml/min (50-250); Glucose 108 mg/dL (70-99); Potassium 4.3 mmol/L (3.3-5.1); Sodium Level 137 mmol/L (133-145)
[2024-12-04 08:41] VITALS: BP 106/47; PULSE 61; RESP 16; TEMP 36.2; O2SAT 97
[2024-12-04] MEDS: Carvedilol 12.5 MG Tablet PO ×2 (08:48→16:11)
[2024-12-04] MEDS: Aspirin 81 MG TAB.CHEW PO (08:48)
[2024-12-04] MEDS: SimETHICONE 80 MG Chewable Tablet PO ×4 (08:48→21:14)
[2024-12-04] MEDS: Furosemide 40 MG Tablet PO (08:48)
[2024-12-04] MEDS: Cholecalciferol (Vit D3) 125 MCG CAPSULE (5,000 UNITS) PO (08:48)
[2024-12-04] MEDS: Potassium Chloride Oral Tablet 20 MEQ PO (08:48)
[2024-12-04] MEDS: Senna/Docusate Sodium 1 Tablet PO ×2 (08:48→21:14)
[2024-12-04] MEDS: Clopidogrel Bisulfate 75 MG Tablet PO (08:48)
[2024-12-04] MEDS: Lisinopril 20 MG Tablet PO ×2 (08:48→21:13)
--- NOTE | 2024-12-04 12:14 | MDS.RN ---
Pain assessment for MDS complete.
--- NOTE | 2024-12-04 16:26 | CASEMGMT ---
Social Work SW completed BIMS () and PHQ-2 () for MDS assessment. Bell Ramírez GLUER COMPUTER TECHNOLOGY TRAINER
[2024-12-04] MEDS: Atorvastatin Calcium 80 MG Tablet PO (21:14)
[2024-12-04] MEDS: MELATONIN 3 MG TABLET 6 MG PO (21:14)
[2024-12-05] MEDS: Acetaminophen 500 MG Tablet 1000 MG PO (05:51)
[2024-12-05 05:55] VITALS: O2SAT 97
[2024-12-05] MEDS: Ensure Plus High Protein 120 ML LIQUID PO (09:32)
[2024-12-05] MEDS: Cholecalciferol (Vit D3) 125 MCG CAPSULE (5,000 UNITS) PO (09:33)
[2024-12-05] MEDS: Carvedilol 12.5 MG Tablet PO (09:33)
[2024-12-05] MEDS: Potassium Chloride Oral Tablet 20 MEQ PO (09:33)
[2024-12-05] MEDS: SimETHICONE 80 MG Chewable Tablet PO (09:33)
[2024-12-05] MEDS: Aspirin 81 MG TAB.CHEW PO (09:34)
[2024-12-05] MEDS: Clopidogrel Bisulfate 75 MG Tablet PO (09:35)
[2024-12-05] MEDS: Lisinopril 20 MG Tablet PO (09:35)
[2024-12-05] MEDS: Senna/Docusate Sodium 1 Tablet PO (09:35)
[2024-12-05] MEDS: Furosemide 40 MG Tablet PO (09:35)
[2024-12-05 12:09] VITALS: BP 123/53; PULSE 60; RESP 18; TEMP 36.8; O2SAT 98
== END 2024-12-05 12:26 | disposition home or self-care (01) | DRG 949 ==
PROVIDERS: Admitting Provider Family Medicine Geriatric Medicine; Referring Provider Family Medicine Geriatric Medicine; Visit Provider Family Medicine Geriatric Medicine
DX: Z48.812 Encounter for surgical aftercare following surgery on the circulatory system (principal); I50.22 Chronic systolic (congestive) heart failure; E55.9 Vitamin D deficiency, unspecified; I11.0 Hypertensive heart disease with heart failure; I70.212 Atherosclerosis of native arteries of extremities with intermittent claudication, left leg; K21.9 Gastro-esophageal reflux disease without esophagitis; E87.6 Hypokalemia; I25.10 Atherosclerotic heart disease of native coronary artery without angina pectoris; F17.210 Nicotine dependence, cigarettes, uncomplicated; I25.5 Ischemic cardiomyopathy; E78.2 Mixed hyperlipidemia; Z79.82 Long term (current) use of aspirin; Z79.02 Long term (current) use of antithrombotics/antiplatelets; Z95.5 Presence of coronary angioplasty implant and graft; Z79.899 Other long term (current) drug therapy; Z95.810 Presence of automatic (implantable) cardiac defibrillator; Z95.1 Presence of aortocoronary bypass graft; G47.00 Insomnia, unspecified
CPT/HCPCS: 36415; 74018; 80048; 85025; 97110; 97116; 97124; 97162; 97166; 97530; 97535; 97802; 99406; A4216

== ENCOUNTER → 2024-12-08 | Outpatient (CLI) | payer MEDICARE, SELFPAY ==
[2024-12-08 14:56] LABS: Absolute Lymphocyte Count 1.49 X10^3/uL (0.83-4.51); Absolute Neutrophil Count 6.1 X10^3/uL (2.0-7.7); Basophil# 0.01 X10^3/uL; Basophil% 0.1 % (0-1); Eosinophil# 0.04 X10^3/uL; Eosinophils% 0.5 % (0-5); Hematocrit 29.1 % (37-47); Hemoglobin 9.7 g/dL (12.0-15.0); Lymphocyte # 1.49 X10^3/ul (0.83-4.51); Lymphocyte % 18.3 % (19-41); Mean Corp Hgb Conc 33.3 g/dL (32-36); Mean Corpuscular Hgb 31.5 pg (27.0-32.0); Mean Corpuscular Volume 94.5 fL (81-99); Mean Platelet Vol. 9.6 fl (6.2-12.0); Monocyte# 0.46 X10^3/uL; Monocyte% 5.7 % (0-10); NRBC Flagged by Analyzer 0 % (0-5); Neutrophil # 6.09 X10^3/uL (2.7-7.7); Platelet Count 274 K/mm3 (150-450); RBC Distribution Width CV 15.1 % (11.6-14.6); RBC Distribution Width SD 52.7 fl (35.1-43.9); Red Blood Count 3.08 M/mm3 (4.2-5.4); White Blood Count 8.1 K/mm3 (4.4-11.0)
[2024-12-08 17:14] LABS: Anion Gap 13 (5-15); BUN 17 mg/dL (4-19); BUN/Creat Ratio 16.1 RATIO (10-20); Calcium,Total 9.5 mg/dL (7.6-11.0); Carbon Dioxide 22.7 mmol/L (21.0-32.0); Chloride 103 mmol/L (98-108); Creatinine, Serum 1.05 mg/dL (0.70-1.20); EST Glomerular Filtration Rate 54 (>60); Glucose 166 mg/dL (70-99); Potassium 3.8 mmol/L (3.3-5.1); Sodium Level 138 mmol/L (133-145); Vitamin B12 646 pg/mL (180-914)
== END | disposition home or self-care (01) ==
LOC: LAB 14:30
PROVIDERS: PCP Family Medicine Geriatric Medicine; Referring Provider Family Medicine Geriatric Medicine; Visit Provider Family Medicine Geriatric Medicine
DX: I25.10 Atherosclerotic heart disease of native coronary artery without angina pectoris (principal); I50.20 Unspecified systolic (congestive) heart failure; D64.9 Anemia, unspecified
CPT/HCPCS: 36415; 80048; 82607; 85025

== ENCOUNTER → 2024-12-11 | Outpatient (CLI) | payer MEDICARE, SELFPAY ==
--- NOTE | 2024-12-11 09:02 | ART_ITS ---
Reason For Study Reason For Study: S/P Rt to Lt Fem/Fem BPG Procedure A bilateral lower extremity continuous wave Doppler with analog waveform analysis and ankle brachial indexes. Left Segmental Pressures Left brachial= 142mmHg. Left posterior tibial artery = 99mmHg. Left dorsalis pedis artery = 96mmHg. Left digit = 68 mmHg. The left posterior tibial artery waveforms are monophasic. The left dorsalis pedis waveforms are monophasic. Right Segmental Pressures Right brachial= 136mmHg. Right posterior tibial artery = 135mmHg. Right dorsalis pedis artery = 122mmHg. Right digit = 77 mmHg. The right posterior tibial artery waveforms are biphasic. The right dorsalis pedis waveforms are biphasic. Indices The right ankle brachial index by the posterior tibial artery is 0.95. The right ankle brachial index by the dorsalis pedis is 0.86. The right digital-brachial index is 0.54. The left ankle brachial index by the posterior tibial artery is 0.70. The left ankle brachial index by the dorsalis pedis is 0.68. The left digital-brachial index is 0.48. VL/Ankle Brachial Index Interpretation Summary Right MARY BETH 0.95, mild arterial insufficiency. Doppler/PVR waveforms of the right ankle mildly diminished at rest. Left MARY BETH 0.7, moderate arterial insufficiency. Doppler/PVR waveforms of the lef t ankle moderately diminished at rest. Ordering Physician: Tiana Wood Referring Physician: Shahid Raya Chi Performed By: Brodie Georges RVTanya
--- NOTE | 2024-12-11 09:02 | ADU_ITS ---
Reason For Study Reason For Study: S/P Fem-Fem BPG Right Velocities Left Velocities Ext. Iliac Artery, dist = 250.0 cm./sec. Rt to Lt [employer]DOOR [employer] TRAINER - OUTDOOR [employer] TRAINER BPG noted. Common Femoral Artery, mid = 151.4 cm./sec. Pre Anastomosis - 209.3 cm/s Supf Femoral Artery, prox = 144.0 cm./sec. Prox Anastomosis at Prox OUTDOOR FITNESS TRAINER - 357.7 cm/s Supf Femoral Artery, mid = 68.8 cm./sec. Approximately 1.31 cm distal to anastomosis - 148.4 cm/s Supf Femoral Artery, dist. = 96.5 cm./sec. Prox BPG - 71.1 cm/s Profunda Femoral Artery = 32.7 cm./sec. Mid BPG - 82.0 cm/s Popliteal Artery, mid = 81.8 cm./sec. Dist BPG - 65.6 cm/s Post. Tibial Artery, prox = 130.8 cm./sec. Distal Anastomosis - 94.8 cm/s Post. Tibial Artery, mid = 104.5 cm./sec. Proximal SFA appears occluded. Post. Tibial Artery, dist = 102.3 cm./sec. Proximal Deep/Profunda Fem A - 71.1 cm/s Peroneal Artery, prox = 65.0 cm./sec. Mid Deep/Profunda Fem A - 113.1 cm/s Peroneal Artery, mid = 78.1 cm./sec. Distal Deep/Profunda Fem A - 28.1 cm/s Peroneal Artery,dist = 95.7 cm./sec. Nonvascularized Anechoic Area noted at Distal Anastomosis Ant. Tibial Artery, prox = 39.1 cm./sec. (Lt Groin) measuring approximately 5.09cm x 1.82cm. Ant. Tibial Artery, mid = 29.2 cm./sec. Popliteal Artery, proximal, = 35.8 cm./sec. Ant. Tibial Artery, dist = 157.2 cm./sec. Popliteal Artery, mid = 32.9 cm./sec. Popliteal Artery, distal = 36.2 cm./sec. Post. Tibial Artery, prox = 24.1 cm./sec. Post Tibial Artery, mid = 29.6 cm./sec. Post Tibial Artery, dist. = 14.2 cm./sec. Peroneal Artery, prox = 76.8 cm./sec. Peroneal Artery, mid = 47.2 cm./sec. Peroneal Artery,dist. = 35.1 cm./sec. Ant.Tibial Artery, prox = 62.5 cm./sec. Ant Tibial Artery, mid = 41.7 cm./sec. Ant. Tibial Artery, distal = 35.1 cm./sec. Procedure The exam was diagnostic. VL/US Art Duplex Bilat Lower Ext Interpretation Summary Patent right to left femoral-femoral bypass with elevated velocities at proxima l anastomosis, 50-75% stenosis. Right lower extremity vessels patent, no visualized stenosis. Left superficial femoral artery occlusion. Nonvascularized anechoic area noted at left groin measuring approximately 5.09c m x 1.82cm. Ordering Physician: Tiana Wood Referring Physician: Shahid Raya Chi Performed By: Brodie Georges RVT
== END | disposition home or self-care (01) ==
LOC: CVS 09:02
PROVIDERS: PCP Family Medicine Geriatric Medicine; Referring Provider Physician Assistant; Visit Provider Physician Assistant
DX: Z48.812 Encounter for surgical aftercare following surgery on the circulatory system (principal); I70.212 Atherosclerosis of native arteries of extremities with intermittent claudication, left leg
CPT/HCPCS: 93922; 93925

== ENCOUNTER → 2024-12-15 | Outpatient (CLI) | payer MEDICARE, SELFPAY ==
[2024-12-15 16:09] LABS: Absolute Lymphocyte Count 2.34 X10^3/uL (0.83-4.51); Absolute Neutrophil Count 5.1 X10^3/uL (2.0-7.7); Basophil# 0.02 X10^3/uL; Basophil% 0.2 % (0-1); Eosinophil# 0.09 X10^3/uL; Eosinophils% 1.1 % (0-5); Hematocrit 31.3 % (37-47); Hemoglobin 10.5 g/dL (12.0-15.0); Lymphocyte # 2.34 X10^3/ul (0.83-4.51); Lymphocyte % 29.1 % (19-41); Mean Corp Hgb Conc 33.5 g/dL (32-36); Mean Corpuscular Hgb 31.4 pg (27.0-32.0); Mean Corpuscular Volume 93.7 fL (81-99); Mean Platelet Vol. 9.6 fl (6.2-12.0); Monocyte# 0.53 X10^3/uL; Monocyte% 6.6 % (0-10); NRBC Flagged by Analyzer 0 % (0-5); Neutrophil # 5.05 X10^3/uL (2.7-7.7); Neutrophil % 62.8 % (47-70); Platelet Count 288 K/mm3 (150-450); RBC Distribution Width CV 14.6 % (11.6-14.6); RBC Distribution Width SD 50.4 fl (35.1-43.9); Red Blood Count 3.34 M/mm3 (4.2-5.4); White Blood Count 8.1 K/mm3 (4.4-11.0)
[2024-12-15 17:06] LABS: ALB/GLOB Ratio 1.5 RATIO (0.9-2.4); AST(SGOT) 22 U/L (<=31); Alanine Aminotransfer ALT/SGPT 14 U/L (<=34); Albumin, Serum 4.1 g/dL (3.4-4.8); Alkaline Phosphatase 81 U/L (35-104); Anion Gap 12 (5-15); BUN 18 mg/dL (4-19); BUN/Creat Ratio 17.3 RATIO (10-20); Calcium,Total 9.4 mg/dL (7.6-11.0); Carbon Dioxide 24.3 mmol/L (21.0-32.0); Chloride 101 mmol/L (98-108); Cholesterol 133 mg/dL (<=200); Creatinine, Serum 1.05 mg/dL (0.70-1.20); EST Glomerular Filtration Rate 54 (>60); Globulin 2.7 g/dL (2.2-4.2); Glucose 107 mg/dL (70-99); High Density Lipoprotein 35 mg/dL; Low Density Lipoprotein Calc. 61 mg/dL; Potassium 3.6 mmol/L (3.3-5.1); Protein, Total 6.8 g/dL (5.9-8.4); Sodium Level 138 mmol/L (133-145); Total Bilirubin 0.41 mg/dL (0.00-1.30); Triglycerides 186 mg/dL; Very Low Density Lipoprotein 37 mg/dL (5-40); Vitamin D,25 Hydroxy 57.9 ng/mL (30-100)
== END | disposition home or self-care (01) ==
LOC: LAB 15:22
PROVIDERS: PCP Family Medicine Geriatric Medicine; Referring Provider Family Medicine Geriatric Medicine; Visit Provider Family Medicine Geriatric Medicine
DX: E78.5 Hyperlipidemia, unspecified (principal); R53.83 Other fatigue; E55.9 Vitamin D deficiency, unspecified
CPT/HCPCS: 36415; 80053; 80061; 82306; 84443; 85025

== ENCOUNTER → 2024-12-31 | Outpatient (CLI) | payer MEDICARE, SELFPAY ==
[2024-12-31 11:14] LABS: Hematocrit 33.1 % (37-47); Hemoglobin 10.7 g/dL (12.0-15.0); Immature Granulocytes Count 0.020 X10^3/uL (0.0-0.0); Mean Corp Hgb Conc 32.3 g/dL (32-36); Mean Corpuscular Volume 97.1 fL (81-99); Mean Platelet Vol. 9.3 fl (6.2-12.0); NRBC Flagged by Analyzer 0 % (0-5); Platelet Count 225 K/mm3 (150-450); RBC Distribution Width CV 14.1 % (11.6-14.6); RBC Distribution Width SD 50.4 fl (35.1-43.9); Red Blood Count 3.41 M/mm3 (4.2-5.4); White Blood Count 5.9 K/mm3 (4.4-11.0)
[2024-12-31 11:49] LABS: Anion Gap 12 (5-15); BUN 27 mg/dL (4-19); BUN/Creat Ratio 25.6 RATIO (10-20); Calcium,Total 9.1 mg/dL (7.6-11.0); Carbon Dioxide 22.0 mmol/L (21.0-32.0); Chloride 104 mmol/L (98-108); Glucose 114 mg/dL (70-99); Potassium 5.2 mmol/L (3.3-5.1)
== END | disposition home or self-care (01) ==
LOC: LAB 09:51
PROVIDERS: PCP Family Medicine Geriatric Medicine; Referring Provider Nurse Practitioner Gerontology; Visit Provider Nurse Practitioner Gerontology
DX: I10 Essential (primary) hypertension (principal); I95.9 Hypotension, unspecified
CPT/HCPCS: 36415; 80048; 85025

== ENCOUNTER 2025-01-07 14:30 | Outpatient (RCR) | payer MEDICARE, SELFPAY ==
--- NOTE | 2024-12-07 14:04 | HP.PTEVAL ---
Patient's Visit Information Visit Information Visit Information: ANA JIMENEZ is a 79 year old F referred to Physical Therapy by Dr. Shahid Raya MD with a diagnosis of BL Femoral Endarterectomy. Date of Evaluation: 12/07/24 Physical Therapist: Radha Monroe DPT Visit Plan Frequency: 2-3x /Week Duration: 4 Weeks Plan: Focus on functional mobility- ambulation, stairs and right LE strength/stabilization HEP Given: reviewed HEP given at TCU Subjective Subjective: November 17 peripheral bypass on the left leg- she was in the TCU and was released on Saturday. She lives in a 2 story farm house with 13 stairs with the bathroom on the 2nd floor- she is able to get up/down- she only has a single handrail. Coming down is harder- she lives with her and grandson but they don't help. Prior to this she was fully independent and she did not use and AD. She has been using the walker since surgery and the cardona for support. Her blood pressure was dropping prior but is now better. She has tingling in the left leg and some discomfort in the hip. The discomfort in the hip has gone away. She has pain in her foot- that comes and goes- they are saying the pain is nerve pain. Worst: 8/10 Agg: being down. Eases: elevation and gentle movement. Best: 0/10. They have her taking Tylenol every 6 hours. No falls. She is active around her home but does not have a normal home exercise program. She normally drives. Goals: get rid of the pain and the walker. Objective Objective: Posture: forward head, rounded shoulders- can correct with verbal cues Gait: decreased shabnam- uses FWW- attempted straight cane and was able to use safely in clinic. Stairs: asc/desc 8 non recip with HR and straight cane HR/TR: able with UE A SLS: 3 sec then LOB on the left 5 sec on the right ROM: WFL Strength: Core: fair minus Right: Hip: 4/5 throughout, Knee: 4+/5 Ankle: 4+/5, Extn: 4/5 Left: Flexion: 2+/5, Abd/Add: 4-/5, Extn: 3+/5, Knee: 4/5, Ankle: 4/5 Flex:HS:mod Balance/Special Test Scores Lower Extremity Functional Score: 12 30 Second Chair Rise Test Seconds: 13 Goals Goal 1:: Patient will be I with HEP and progression Goal Time Frame: 4-6 Weeks Goal 2:: Patient will ambulate >150 feet without AD safely Goal Time Frame: 4-6 Weeks Goal 3:: Patient will asc/desc 8 stairs recip without HR Goal Time Frame: 4-6 Weeks Goal 4:: Patient will report 80% improvement Goal Time Frame: 4-6 Weeks Rehabilitation Potential Physical Therapy Diagnosis: Patient presents with hypomobility- she has decreased LE and core strength/stabilization, flex, proprioception and muscular endurance leading to abnormal gait and decreased ability to perform ADL's. Rehabilitation Potential: Fair Anticipated Interventions Patient/Client Instruction: Educate patient on: Benefits of Fitness Program Therapeutic Exercise to Include: Strength training, Endurance training, Balance training, Coordination, Agility training, Body mechanics, Postural training, Flexibilty training, Gait and locomotor training, Neuromotor development, Dynamic Lumbar Stabilization and Scapular Strength/Stabilization For the Purpose of:: To improve muscle performance and motor function Cryotherapy (ice pack, ice massage): Yes Thermo therapy (hot pack): Yes Ultrasound (thermal/non thermal): No For the Purpose of:: To decrease pain Text: Thank you for the opportunity to evaluate your patient. For Medicare and Medicare HMO plans, please review the plan of care and approve it. It will need to be FAXED BACK to us at [phone] for Medicare purposes. For Medicare only, by signing this I certify the plan of care. Please let me know if there are questions or concerns regarding this plan of care. Physician Signature: Date:
--- NOTE | 2025-01-07 15:12 | HP.PTDCSUM ---
Discharge Summary D/C summary: It has been my pleasure to treat ANA JIMENEZ referred by Dr. Shahid Raya MD, with the diagnosis of BL Femoral Endarterectomy for a total of 7 visit(s). Discharge Date: Please see the following information for a summary of their discharge status. Subjective Subjective: The left foot the pain is getting worse- she is doing a CT scan- she is scheduled for the . She feels that that is what is holding her back. The leg feels wonderful but the foot is the problem. It doesn't seem to matter what she does it hurts all the time. She only uses the cane when she is out and about not when she is at home. Pain Left Foot: Pain Intensity (Out of 10): 8 Overall Improvement % Improvement: 95 Objective Objective/Function: Posture: forward head, rounded shoulders- can correct with verbal cues Gait: straight cane- slightly antalgic- decreased stance on left LE Stairs: asc/desc 8 recip with 1 HR HR/TR: able with UE A SLS: 10 sec ROM: WFL Strength: Core: fair minus Right: Hip: 4+/5 throughout, Knee: 4+/5 Ankle: 4+/5, Extn: 4/5 Left: Flexion: 4/5, Abd/Add: 4-/5, Extn: 4/5, Knee: 4/5, Ankle: 4/5 Flex:HS:mod Goals Goal 1:: Patient will be I with HEP and progression Goal Progress: Goal Met Goal 2:: Patient will ambulate >150 feet without AD safely Goal Progress: Progressing Goal 3:: Patient will asc/desc 8 stairs recip without HR Goal Progress: Progressing Goal 4:: Patient will report 80% improvement Goal Progress: Goal Met Plan Plan: 01/07/25: Discharge to I HEP IE: Focus on functional mobility- ambulation, stairs and right LE strength/stabilization HEP Given: reviewed HEP given at U D/C Information d/c sentence: If there are questions or concerns regarding this patient's physical therapy, please feel free to call me at [phone]. Thank you for the referral of this patient. Sincerely, Radha Monroe, DPT Balance/Gait/Functional tests Balance/Special Test Scores Lower Extremity Functional Score: 40 Tug Test: 20-30sec.=variable mobility 30 Second Chair Rise Test Seconds: 13 Improvement % Improvement: 95
== END 2025-01-07 19:00 | disposition home or self-care (01) ==
LOC: PT 14:30
PROVIDERS: Referring Provider Family Medicine Geriatric Medicine; Visit Provider Family Medicine Geriatric Medicine
DX: Z98.890 Other specified postprocedural states (principal)
CPT/HCPCS: 97110; 97162; 97530

== ENCOUNTER → 2025-01-21 | Outpatient (CLI) | payer MEDICARE, SELFPAY ==
--- NOTE | 2025-01-21 14:56 | CT_ITS ---
PROCEDURE: CTA ABD W/RUNOFF W/WO CONTRAST 01/21/2025 REASON FOR EXAM: S/P FEM-FEM BYPASS TECHNIQUE: CTA ABD W/RUNOFF W/WO CONTRAST Multiplanar Sagittal and Coronal images were obtained. 3D and or MIPS post processing was performed One or more dose reduction techniques were used (e.g., Automated exposure control, adjustment of the mA and/or kV according to patient size, use of iterative reconstruction technique). CTA ABD W/RUNOFF W/WO CONTRAST Multiplanar Sagittal and Coronal images were obtained. 3D and or MIPS post processing was performed CONTRAST: Isovue 370 VOLUME: 100 mL RADIATION DOSE SUMMARY: CTDlvol: 6 mGy DLP: 1069.59 mGycm COMPARISON: None FINDINGS: Aorta: Atherosclerotic calcification. No significant stenosis. Iliac Arteries: Occlusion of the left common iliac artery at its origin. Celiac: Atherosclerotic plaque at its origin. SMA: Atherosclerotic plaque at the origin. JORDAN : Not visualized. Right Renal: Unremarkable Left Renal: Unremarkable Lower Extremity Runoff (Bilateral): There is patency of the femoral femoral bypass graft. Common Femoral Arteries: Patent. Scattered atherosclerotic plaque formation. Superficial Femoral Arteries: The right superficial femoral artery shows short- segment occlusion with reconstitution via collaterals. The left superficial femoral artery is patent. Profunda Femoris Arteries: Patent bilaterally. Popliteal Arteries: Calcific plaques. Patent Tibial and Peroneal Arteries: Patent Distal Runoff: Three-vessel runoff in both lower extremities. Extravascular Findings: CT/CTA Abd w/Runoff W/WO Contrast IMPRESSION: The femoral femoral bypass graft is patent. Reading Location: [facility]
== END | disposition home or self-care (01) ==
LOC: CT 14:55
PROVIDERS: PCP Family Medicine Geriatric Medicine; Referring Provider Physician Assistant; Visit Provider Physician Assistant
DX: Z95.828 Presence of other vascular implants and grafts (principal); I70.212 Atherosclerosis of native arteries of extremities with intermittent claudication, left leg
CPT/HCPCS: 75635; Q9967

== ENCOUNTER → 2025-02-09 | Outpatient (CLI) | payer MEDICARE, SELFPAY ==
[2025-02-11 18:08] LABS: QNTFERON TB Mitogen Value > 10.00 IU/mL (.); QNTFERON TB Nil Value 0.08 IU/mL (.); QNTFERON TB1+ Ag Value 0.10 IU/mL (.); QNTFERON TB2+ Ag Value 0.12 IU/mL (.); QNTIFERON TB Positive Criteria Negative (Negative)
== END | disposition home or self-care (01) ==
LOC: MTLAB 11:07
PROVIDERS: PCP Family Medicine Geriatric Medicine; Referring Provider Physician Assistant; Visit Provider Physician Assistant
DX: L40.0 Psoriasis vulgaris (principal)
CPT/HCPCS: 36415; 86480

== ENCOUNTER → 2025-04-28 | Outpatient (CLI) | payer MEDICARE, SELFPAY ==
--- NOTE | 2025-04-28 08:55 | RAD_ITS ---
EXAM: XR Lumbosacral Spine, 4 or 5 Views CLINICAL INDICATION: NEUROPATHIES/PAIN TECHNIQUE: Frontal, lateral and bilateral oblique views of the lumbar spine. COMPARISON: No relevant prior studies available. FINDINGS: VERTEBRAE: Degenerative facet arthropathy throughout the lumbar spine, most prominent in the lower lumbar spine. No acute fracture. Normal alignment. SACRUM/COCCYX: Unremarkable as visualized. No acute fracture. DISC SPACES: Degenerative disc disease throughout the lumbar spine. SOFT TISSUES: Unremarkable. VASCULATURE: Scattered calcified atherosclerotic disease of aorta. RAD/L/S Spine Min 4 Views IMPRESSION: Degenerative changes lumbar spine as described. Reading Location[facility]
--- NOTE | 2025-04-28 15:00 | NEURO ---
NCS and/or EMG Patient Report Ordering Doctor: Akin Quiroga DATE OF SERVICE: 04/28/25 Nelli presents for electrodiagnostic testing of the lower limbs. She reports left foot pain and occasional tingling in the feet. Electrodiagnostic findings: Peroneal motor nerve demonstrates normal distal latency, amplitude and conduction velocity in the right side. Left peroneal motor nerve measured at the tib anterior demonstrates normal distal latency, amplitude and conduction velocity. Tibial motor response within normal limits bilaterally. Absent left sural and left superficial peroneal responses. Prolonged right sural latency. Normal tibial and peroneal F–waves. Normal H–reflex bilaterally. Needle EMG testing was performed to the lower limbs. All muscles tested showed no evidence of denervation with normal motor unit action potentials. Electrodiagnostic impression: This is an abnormal study. 1. 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 2. There is no electrodiagnostic evidence for lumbosacral radiculopathy. Multi Select Codes Neurology Neurology Interp Codes: 70716-13 Musc test done w/n test comp (interp) (2) and 18747-93 Nrv cndj test 9-10 studies (interp)
== END | disposition home or self-care (01) ==
PROVIDERS: PCP Family Medicine Geriatric Medicine; Referring Provider Student in an Organized Health Care Education/Training Program; Visit Provider Student in an Organized Health Care Education/Training Program
DX: G60.8 Other hereditary and idiopathic neuropathies (principal); M54.16 Radiculopathy, lumbar region; I73.89 Other specified peripheral vascular diseases; M79.672 Pain in left foot
CPT/HCPCS: 72110; 95886; 95912

== ENCOUNTER 2025-05-03 14:35 | Observation (INO) | payer MEDICARE, SELFPAY ==
[2025-05-03] VITALS (9 sets, daily range): BP systolic 110–162; BP diastolic 8–97; PULSE 55–63; RESP 14–18; TEMP 36.2–36.9; O2SAT 94–100; BMI 28.2; BMI 29.8; BMI 27.1
--- NOTE | 2025-05-03 14:43 | EKG12_ITS ---
Test Reason : STROKE TEAM Blood Pressure : */* mmHG Vent. Rate : 62 BPM Atrial Rate : 62 BPM P-R Int : 142 ms QRS Dur : 166 ms QT Int : 460 ms P-R-T Axes : -48 185 96 degrees QTcB Int : 466 ms AV dual-paced rhythm Biventricular pacemaker detected Abnormal ECG Confirmed by Akin Carbajal ([id number]), story editor LURDES DOVER ([id number]) on 05/04/2025 11:50:23 AM Referred By: Confirmed By: Akin Carbajal
--- NOTE | 2025-05-03 14:43 | CT_ITS ---
PROCEDURE: STROKE BRAIN/HEAD WITHOUT CONT 05/03/2025 REASON FOR EXAM: NEURO DEFICIT, ACUTE, STROKE SUSPECTED TECHNIQUE: Procedure Code: CTBR.ST Modality: CT Procedure: STROKE BRAIN/HEAD WITHOUT CONT Coronal and Sagittal reconstruction series were provided. One or more dose reduction techniques were used (e.g., Automated exposure control, adjustment of the mA and/or kV according to patient size, use of iterative reconstruction technique. RADIATION DOSE SUMMARY: CTDlvol: 47 mGy DLP: 855 mGycm COMPARISON: None FINDINGS: Brain: There is no evidence of hemorrhage, acute ischemia or mass. No extra- axial fluid collection, midline shift or mass effect. Mild low-density in the periventricular white matter. CSF Spaces: Normal Sinuses/Mastoids: Clear Bones: No fracture CT/STROKE Brain/Head without Cont IMPRESSION: No evidence of acute ischemia or hemorrhage at this time. Stroke Alert: As above The critical findings in the findings and impression above were relayed directl y by me by telephone to Bandar Cole on 05/03/2025 at 2:59 pm with readback verification. Reading Location: [id number]
--- NOTE | 2025-05-03 14:43 | EDS_ITS ---
HPI History of Present Illness Chief Complaint: Stroke Alert Detail of Chief Complaint: Left facial droop Informant: patient Narrative Narrative: Patient presents to the emergency department left-sided facial droop that she noticed around 10 AM. She states that it is possible she may have woken up that way. She thinks her last known well was last evening before going to bed. She has had a little bit of a runny nose for about a week. She denies falls or head injuries. She denies headache. Patient has history of coronary artery disease. She is on Plavix. No other anticoagulation. She denies weakness to the extremities. She denies paresthesias [facility] Medical History (Updated 05/03/25 @ 15:[address] 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) Nicotine dependence Essential (primary) hypertension Ischemic cardiomyopathy Chronic systolic congestive heart failure Atrioventricular block Old myocardial infarction Atherosclerosis of coronary artery 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 Tobacco abuse Psoriasis Hypercholesteremia Syncope and collapse Hyperlipemia Hypokalemia History of syncope History of sinus bradycardia Home Medications ?Medication ?Instructions ?Recorded ?Last Taken ?Type aspirin 81 mg chewable tablet 81 mg PO DAILY@0800 bloo d thinner 09/27/16 11/20/24 08:50 History nitroglycerin 0.4 mg sublingual 0.4 mg sublingual Q5-1 5M PRN chest 10/16/22 Unknown Rx tablet pain #25 tabs clopidogrel 75 mg tablet 75 mg PO DAILY blood thinner #90 10/27/24 11/20/24 08:50 Rx tabs acetaminophen 500 mg tablet 1,000 mg (2 x 500 mg) PO Q 8 #0 tabs 12/02/24 Unknown Rx atorvastatin 80 mg tablet 80 mg PO QHS cholesterol #90 tabs 01/11/25 Unknown Rx carvedilol 12.5 mg tablet (Coreg) 12.5 mg PO BID bp #1 80 tabs 01/11/25 Unknown Rx risankizumab-rzaa 150 mg/mL 150 mg subcut Q12W 5 Unknown History subcutaneous pen injector (Skyrizi) furosemide 40 mg tablet 40 mg PO .PRN dieretic #90 t abs 03/25/25 Unknown Rx lisinopril 20 mg tablet 20 mg PO DAILY 05/03/25 Unkn own History potassium chloride 20 mEq 20 meq PO DAILY 05/03/25 Unk nown History tablet,extended release(part/cryst) Allergy/AdvReac Type Severity Reaction Status Date / Time No Known Allergies Allergy Verified 05/03/25 14:37 Family History (Reviewed 03/02/25 @ 15:51 by Nancy Elizondo [employer], [employer]) Father CAD (coronary artery disease) Myocardial infarction Brother CAD (coronary artery disease) Myocardial infarction Mother Cancer Surgical History (Updated 03/02/25 @ 15:56 by Nancy Elizondo [employer], [employer]) Status post femorofemoral bypass surgery History of electrophysiologic study (03/07/12) Biventricular ICD (implantable cardioverter-defibrillator) in place (08/04/20) History of coronary artery stent placement (03/06/12) H/O coronary artery bypass surgery (04/28/97) Saphenous vein graft to CFX saphenous vein graft to RCA H/O tubal ligation History of left heart catheterization (06/27/20) Social History (Reviewed 03/02/25 @ 15:51 by Nancy Elizondo [employer], [employer]) household members: spouse and family housing: house Smoking Status: Current every day smoker tobacco type: cigarettes second hand exposure: Yes alcohol intake: current alcohol intake frequency: holidays/special occasions only substance use type: does not use caffeine: Yes Type: carbonated beverages Number of servings: 4 what type of physical activity do you participate in: none seatbelt use: always do you feel safe at home: Yes ROS ROS ED Review of Systems ROS Unobtainable: other Constitutional Constitutional ED: Reports lethargy; Denies chills, fever(s), sweats or weight loss Eyes Eyes: Denies blurry vision, change in vision or diplopia ENT ENT ED: Denies rhinorrhea or sore throat Cardiovascular Cardiovascular: Denies chest pain, orthopnea or racing heartbeat Respiratory/Chest Respiratory/Chest: Reports dyspnea on exertion; Denies cough, dyspnea, orthopnea or sputum Gastrointestinal Gastrointestinal: Denies abdominal pain, diarrhea, nausea or vomiting Genitourinary Genitourinary ED: Denies dysuria, hematuria or urinary frequency Musculoskeletal Musculoskeletal: Denies arthralgias, back pain, myalgias or neck pain Integumentary Denies abscess, Abrasions or rash Neurologic Neurologic: Reports other Details: Left facial droop ; Denies headache(s) or weakness Psychiatric Psychiatric: Denies anxiety, depression or suicidal thoughts Endocrine Endocrinology: Denies polydipsia, polyphagia or polyuria Hematologic/Lymphatic Hematologic/Lymphatic: Denies easy bleeding, easy bruising or lymphadenopathy Allergic/Immunologic Allergic/Immunologic ED: Denies mouth swelling, tongue swelling or urticaria EXAM Physical Exam Const Vital Signs: 05/03/25 14:37 05/03/25 14:43 05/03/25 14:43 Temperature 98.4 F Temperature Source Oral Pulse Rate 62 63 Respiratory Rate 18 16 Blood Pressure 138/54 H 144/93 H Blood Pressure Mean 82 110 Pulse Ox 96 94 100 Oxygen Delivery Method Room Air Room Air Room Air Positive well nourished and well developed General Appearance ED: well developed and NAD HEENT Reports TM's clear and moist mucous membranes normocephalic and atraumatic; Negative for trauma or tenderness Tympanic Membrane ED: Yes TM's clear Eyes PERRL and EOMs intact bilaterally General Eye ED: Negative for pale conjunctiva or scleral icterus Neck no lymphadenopathy, supple and no JVD General: Negative for tenderness Chest Wall inspection of chest normal and palpation of chest normal Chest: Negative for tenderness Resp normal respiratory effort and clear to auscultation bilaterally Effort and Inspection: Negative for respiratory distress or pain with movement Auscultation: Negative for rhonchi, wheezes or diminished lung sounds Cardio regular rate, regular rhythm, S1 normal heart sound, S2 normal heart sound and no murmurs Peripheral Pulses: pulses 2+ throughout GI normal to inspection, nondistended, normoactive bowel sounds, soft to palpation, non-tender, non-distended and no masses Back/Spine no CVA tenderness and no thoracic nor lumbar tenderness Extremity normal to inspection General Extremety ED: Negative for edema General Extremity: Negative for edema Neuro oriented x3, CN's II-XII intact bilaterally, no sensory deficits noted and gait normal Neuro Narrative: Left facial droop. Weak left upper eyelid. Patient still able to wrinkle both sides of the forehead. No focal motor weakness otherwise. No difficulty with speech. NIH stroke scale of 2. Sensorium / Orientation: awake, alert, oriented to person, oriented to place and oriented to time Motor Exam: strength 5/5 throughout and strength abnormal Psych mental status grossly normal Skin no rashes or lesions noted and no wounds MDM MDM MDM Narrative Medical decision making narrative: Patient presents with left facial droop. In the differential would be stroke versus a Hammond's palsy. The fact that she is still able to move the left side of the forehead concern for central cause however clinically given the runny nose and no other signs or symptoms of a stroke cannot completely rule out Hammond's palsy. Will obtain a CT brain as well as CTA head and neck. Stroke team was called however she is not going to be a thrombolytic candidate as it is unclear exactly when symptoms started. She first noticed the symptoms at 10 AM but very well could have woken up that way. Patient seen by stroke neurologist and it was felt that need to rule out stroke. Under differential also would be Hammond's palsy. Patient had a CT scan of the brain without contrast that was unremarkable. CBC with differential was unremarkable. Patient had a CTA head and neck performed that showed 90% stenosis of the right internal carotid and 80% stenosis of the left internal carotid. Stroke neurologist agreed that patient is not a thrombolytic candidate. Discussed with hospitalist to evaluate patient for admission. Hospitalist also spoke with vascular surgeon regarding her carotid disease to evaluate further. Patient currently on Plavix and aspirin both. Lab Data Attestation: I reviewed the patient's lab results. Labs: Laboratory Results - last 24 hr 05/03/25 05/03/25 14:38 14:40 WBC 8.1 RBC 4.13 L Hgb 12.8 Hct 37.2 MCV 90.1 MCH 31.0 MCHC 34.4 RDW Std Deviation 41.9 RDW Coeff of Bao 12.7 Plt Count 268 MPV 9.5 Immature Gran % (Auto) 0.200 Neut % (Auto) 64.3 Lymph % (Auto) 27.5 [place] % (Auto) 4.8 Eos % (Auto) 2.8 Baso % (Auto) 0.4 Absolute Neuts (auto) 5.2 Absolute Lymphs (auto) 2.22 Nucleated RBC % 0 PT 13.7 INR 1.0 APTT 23.0 L Sodium 140 Potassium 3.9 Chloride 103 Carbon Dioxide 24.3 Anion Gap 13 BUN 18 Creatinine 1.08 Estim Creat Clear Calc 40.46 L Est GFR (MDRD) Non-Af 53 L BUN/Creatinine Ratio 16.4 Glucose 156 H Calcium 9.5 Troponin T High Sens 16 H POC Glucose 142 H Radiography Diagnostic Testing: Clinical Impression(s) from Imaging Studies Brain CT 05/03/25 14:43 IMPRESSION: No evidence of acute ischemia or hemorrhage at this time. Stroke Alert: As above The critical findings in the findings and impression above were relayed directly by me by telephone to Bandar Cole on 05/03/2025 at 2:59 pm with readback verification. Reading Location: [id number] Head/Neck CTA 05/03/25 14:52 IMPRESSION: Stroke Alert: The critical findings in the findings and impression above were relayed directly by me by telephone to Bandar Cole on 05/03/2025 at 3:13 pm with readback verification. Reading Location: [place] [id number] EKG Initial EKG: Attestation: I personally reviewed and interpreted this EKG as follows: Comments: Paced rhythm heart rate in the 60s Discharge Plan Dx/Rx/DC Orders Clinical Impression: CVA (cerebral vascular accident), History of coronary artery disease, Bilateral carotid artery occlusion Disposition Disposition: Acute Care Hospital [facility]
--- NOTE | 2025-05-03 14:52 | CT_ITS ---
PROCEDURE: STROKE CTA HEAD AND NECK W/CON 05/03/2025 REASON FOR EXAM: NEURO DEFICIT, ACUTE, STROKE SUSPECTED TECHNIQUE: Procedure Code: [id number].ST.HN Modality: CT Procedure: STROKE CTA HEAD AND NECK W/CON Multiplanar Sagittal and Coronal images were obtained. 3D post processing was performed CONTRAST: Isovue 370 VOLUME: 100 mL One or more dose reduction techniques were used (e.g., Automated exposure control, adjustment of the mA and/or kV according to patient size, use of iterative reconstruction technique). RADIATION DOSE SUMMARY: CTDlvol: 44.5 mGy DLP: 861.8 mGycm COMPARISON: Prior CT scan of the brain done earlier in the day. FINDINGS: Aortic Arch: Normal size and branching pattern. Mild atherosclerotic plaque. Brachiocephalic and Subclavians: Mild atherosclerotic plaque without significant stenosis. RIGHT Carotid: Right CCA: Unremarkable. Right ICA: High-grade stenosis Maximum stenosis (NASCET): 90 % Right ECA: Unremarkable. LEFT Carotid: Left CCA: Unremarkable. Left ICA: Moderate calcified and soft plaque. Maximum stenosis (NASCET): 80 % Left ECA: Unremarkable. Vertebrals: Codominant. Arise from the subclavians. Both vertebrals form the basilar. RIGHT Vertebral: Unremarkable. LEFT Vertebral: Unremarkable. Anatomy: [place] of [place] anatomy is normal. Aneurysm or avm: No intracranial aneurysms or large vascular malformations are identified. Anterior cerebral arteries: Unremarkable: Middle cerebral arteries: Unremarkable. Basilar artery: Unremarkable. Posterior cerebral arteries: Unremarkable. Other major branches of the posterior circulation: Unremarkable. Major venous structures: Unremarkable. Other findings: Neck: Lungs: Bones: CT/STROKE CTA Head AND Neck W/Con IMPRESSION: Stroke Alert: The critical findings in the findings and impression above were relayed directl y by me by telephone to Bandar Cole on 05/03/2025 at 3:13 pm with readback verification. Reading Location: [place] [address]
[2025-05-03 15:05] LABS: Hematocrit 37.2 % (37-47); Hemoglobin 12.8 g/dL (12.0-15.0); Immature Granulocytes Count 0.020 X10^3/uL (0.0-0.0); Mean Corp Hgb Conc 34.4 g/dL (32-36); Mean Corpuscular Volume 90.1 fL (81-99); Mean Platelet Vol. 9.5 fl (6.2-12.0); NRBC Flagged by Analyzer 0 % (0-5); Platelet Count 268 K/mm3 (150-450); RBC Distribution Width CV 12.7 % (11.6-14.6); RBC Distribution Width SD 41.9 fl (35.1-43.9); Red Blood Count 4.13 M/mm3 (4.2-5.4); White Blood Count 8.1 K/mm3 (4.4-11.0)
[2025-05-03 15:28] LABS: Prothrombin Time (Protime)PT. 13.7 SECONDS (11.7-14.9)
[2025-05-03 15:29] LABS: Partial Thromboplast Time 23.0 Seconds (24.1-36.2)
[2025-05-03 15:33] LABS: Anion Gap 13 (5-15); BUN 18 mg/dL (4-19); BUN/Creat Ratio 16.4 RATIO (10-20); Calcium,Total 9.5 mg/dL (7.6-11.0); Carbon Dioxide 24.3 mmol/L (21.0-32.0); Chloride 103 mmol/L (98-108); Estimated Creatinine Clearance 40.46 ml/min (50-250); Glucose 156 mg/dL (70-99); Potassium 3.9 mmol/L (3.3-5.1); Troponin T High Sensitivity 16 ng/L (<=14)
--- NOTE | 2025-05-03 15:34 | ED.RN ---
1505 called [facility], Dr Helms beamed in at 1512. Dr Cole entered room at 1420 and discussed with the neurologist and with pt and family the treatment plan.
--- NOTE | 2025-05-03 16:19 | CDU_ITS ---
Reason For Study Reason For Study: Carotid stenosis on CTA Rt. Velocities/BP Lt. Velocities/BP Prox CCA 92.7/17.9 cm/sec. Prox CCA 92.5/21.2 cm/sec. Mid CCA 65.2/17.9 cm/sec. Mid CCA 83.9/22.5 cm/sec. Dist CCA 59.7/16.8 cm/sec. Dist CCA 65.4/20 cm/sec. Prox ICA 106/22.5 cm/sec. Prox ICA 84.6/27.9 cm/sec. Mid ICA 62.8/15.5 cm/sec. Mid ICA 130.2/29.8 cm/sec. Dist ICA 53.1/15.7 cm/sec. Dist ICA 69.1/15.1 cm/sec. Rt. ICA/CCA = 1.63. Lt. ICA/CCA = 1.55. Prox ECA 101.4/15.7 cm/sec. Prox ECA 161.5/24.1 cm/sec. Rt. Vert. 50.9/12.4 cm/sec. Lt. Vert. 69.1/16.3 cm/sec. Right Extracranial There is homogeneous, smooth atherosclerotic plaque noted in the right common carotid artery. There is heterogeneous, irregular atherosclerotic plaque noted in the right internal carotid artery. There is heterogeneous, irregular atherosclerotic plaque noted in the right external carotid artery. Antegrade flow is noted in the right vertebral artery. Left Extracranial There is homogeneous, smooth atherosclerotic plaque noted in the left common carotid artery. There is heterogeneous, irregular atherosclerotic plaque noted in the left internal carotid artery. There is heterogeneous, irregular atherosclerotic plaque noted in the left external carotid artery. Antegrade flow is noted in the left vertebral artery. Procedure Carotid Duplex [id number]. This is a Carotid Duplex examination using B-mode, color flow and specral Doppler. Exam performed portable in patient room. VL/Carotid Duplex Ultrasound Interpretation Summary Mild (<50%) stenosis right extracranial internal carotid. Moderate (50-69%) stenosis left extracranial internal carotid. Patent and antegrade vertebrals bilaterally. Ordering Physician: Olvin Styles Referring Physician: Shahid Raya Chi Performed By: Flavia Acosta RVT
[2025-05-03 17:11] LABS: Troponin T High Sens 2 HR 16 ng/L (<=14)
--- NOTE | 2025-05-03 18:28 | PCM.HP.STD ---
[facility] - General General Date of Admission: 05/03/25 Date of Service: 05/03/25 Chief Complaint: Left facial drooping, inability to close left eyelid completely HPI Narrative ANA JIMENEZ, is a 79 F who presents to the emergency room at [facility] with complaints of left facial drooping and inability to close her left eyelid completely. She noticed this at 10 AM this morning but admits that it may have been present when she woke this morning. Patient went to bed at 11:00 last night. Patient denies any problems with speech or vision, she denies any problems with strength or coordination in her upper or lower extremities. A stroke team was called, CT of the brain showed no evidence of hemorrhage or stroke, CTA of the head and neck was performed which showed a 90% stenosis of the right internal carotid and an 80% stenosis of the left internal carotid. Telestroke neurologist felt that the patient was not a thrombolytic candidate due to the fact that length of her symptoms could not be confirmed. Patient is currently on dual antiplatelet therapy as well as a statin due to a history of peripheral vascular disease and coronary artery disease with stent placement. Patient also has an ICD in place-I checked with MRI and this ICD is not compatible with MRI. Patient will be admitted to PCU, she will be seen in consultation by teleneurology, she will remain on aspirin and Plavix as well as a statin. Repeat CT of the brain without contrast will be obtained tomorrow, I talked with vascular surgery today-Dr. Dc-patient sees Dr. Dc as outpatient, she had a vascular procedure performed in October of this year due to peripheral vascular disease in her legs. Dr. Dc requested that I obtain a carotid duplex scan to verify the extent of her carotid occlusive disease. 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 [facility] Medical History (Updated 05/03/25 @ 18:[address] 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) Nicotine dependence Essential (primary) hypertension Ischemic cardiomyopathy Chronic systolic congestive heart failure Atrioventricular block Old myocardial infarction Atherosclerosis of coronary artery 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 Tobacco abuse Psoriasis Hypercholesteremia Syncope and collapse Hyperlipemia Hypokalemia History of syncope History of sinus bradycardia Home Medications ?Medication ?Instructions ?Recorded ?Last Taken ?Type aspirin 81 mg chewable tablet 81 mg PO DAILY@0800 blood thinner 09/27/16 05/03/25 History nitroglycerin 0.4 mg sublingual 0.4 mg sublingual Q5-15M PRN chest 10/16/22 Unknown Rx tablet pain #25 tabs clopidogrel 75 mg tablet 75 mg PO DAILY blood thinner #90 10/27/24 05/03/25 Rx tabs atorvastatin 80 mg tablet 80 mg PO QHS cholesterol #90 tabs 01/11/25 05/02/25 Rx carvedilol 12.5 mg tablet (Coreg) 12.5 mg PO BID bp #180 tabs 01/11/25 05/03/25 Rx acetaminophen 500 mg tablet 1,000 mg PO Q6H PRN fever or pain 05/03/25 Unknown History docusate sodium 100 mg capsule 100 mg PO BID PRN constipation 05/03/25 Unknown History (Colace) furosemide 40 mg tablet 40 mg PO DAILY dieretic 05/03/25 05/03/25 History ibuprofen 200 mg tablet (Advil) 400 mg PO Q8H PRN pain 05/03/25 05/03/25 History lisinopril 20 mg tablet 20 mg PO BID 05/03/25 05/03/25 History magnesium 200 mg tablet 200 mg PO DAILY 05/03/25 05/03/25 History potassium chloride 20 mEq 20 meq PO DAILY 05/03/25 05/03/25 History tablet,extended release(part/cryst) simethicone 80 mg chewable tablet 80 mg PO 4X/DAY PRN abdominal 05/03/25 Unknown History (Gas Relief (simethicone)) distention vitamin B complex 1 cap PO DAILY 05/03/25 05/03/25 History vitamin D3 1,250 mcg (50,000 1 cap PO DAILY 05/03/25 05/03/25 History unit)-vitamin K2 200 mcg capsule (Decara K) Allergy/AdvReac Type Severity Reaction Status Date / Time No Known Allergies Allergy Verified 05/03/25 14:37 Family History Father CAD (coronary artery disease) Myocardial infarction Brother CAD (coronary artery disease) Myocardial infarction Mother Cancer Surgical History (Updated 03/02/25 @ 15:56 by Nancy Elizondo HANDBAG PARTS CUTTER, HAND[employer]AG [employer]S CUTTER-C) Status post femorofemoral bypass surgery History of electrophysiologic study (03/07/12) Biventricular ICD (implantable cardioverter-defibrillator) in place (08/04/20) History of coronary artery stent placement (03/06/12) H/O coronary artery bypass surgery (04/28/97) Saphenous vein graft to CFX saphenous vein graft to RCA H/O tubal ligation History of left heart catheterization (06/27/20) Social History household members: spouse and family housing: house Smoking Status: Current every day smoker tobacco type: cigarettes second hand exposure: Yes alcohol intake: current alcohol intake frequency: holidays/special occasions only substance use type: does not use caffeine: Yes Type: carbonated beverages Number of servings: 4 what type of physical activity do you participate in: none seatbelt use: always do you feel safe at home: Yes ROS Constitutional Constitutional: Reports other Details: Left facial drooping ; Denies anorexia, change in weight, chills, fatigue, fever(s), malaise, night sweats or weakness Eyes Eyes: Reports other Details: Inability to close left upper eyelid completely ; Denies blurry vision, change in vision, discharge from eye(s) or eye pain ENT HEENT: Reports other Details: Inability to close left upper eyelid completely Cardiovascular Cardiovascular: Denies chest pain, claudication, dyspnea on exertion, edema or palpitations Respiratory/Chest Respiratory/Chest: Denies cough, hemoptysis, shortness of breath at rest or shortness of breath with exertion Gastrointestinal Gastrointestinal: Denies abdominal pain, constipation, diarrhea, hematemesis, hematochezia, melena, nausea or vomiting Genitourinary Genitourinary: Denies dysuria, hematuria, urinary frequency, urinary hesitancy, urinary incontinence or urinary urgency Musculoskeletal Musculoskeletal: Denies back pain, joint pain, joint stiffness, joint swelling, myalgias or neck pain Neurologic Neurologic: Reports other Details: Left facial drooping ; Denies abnormal gait, abnormal speech, dizziness, focal weakness, headache(s), loss of vision, numbness, other visual disturbances, paresthesias, syncope or tingling Psychiatric Psychiatric: Denies anxiety, cognitive impairment, depression, irritability, mood swings or suicidal ideation Endocrine Endocrinology: Denies change in body appearance, cold intolerance, excessive sweating, heat intolerance, polydipsia or polyuria Hematologic/Lymphatic Hematologic/Lymphatic: Denies none, anemia, easy bleeding, easy bruising or lymphadenopathy Allergic/Immunologic Allergic/Immunologic: Denies rhinitis, urticaria, eczemia or asthma Vital Signs Vital Signs Vital Signs: 05/03/25 14:37 05/03/25 14:43 05/03/25 14:43 Temperature 98.4 F Temperature Source Oral Pulse Rate 62 63 Respiratory Rate 18 16 Blood Pressure 138/54 H 144/93 H Blood Pressure Mean 82 110 Blood Pressure Source Blood Pressure Position Blood Pressure Location Pulse Ox 96 94 100 Oxygen Delivery Method Room Air Room Air Room Air 05/03/25 15:39 05/03/25 16:00 05/03/25 16:47 Temperature 98.3 F Temperature Source Pulse Rate 60 60 61 Respiratory Rate 18 18 18 Blood Pressure 158/74 H 162/97 H 150/8 H Blood Pressure Mean 102 118 55 Blood Pressure Source Blood Pressure Position Blood Pressure Location Pulse Ox 97 100 100 Oxygen Delivery Method Room Air Room Air 05/03/25 17:14 05/03/25 17:15 05/03/25 17:15 Temperature 98.2 F 98.2 F Temperature Source Temporal Oral Pulse Rate 55 L 55 L Respiratory Rate 14 14 Blood Pressure 159/59 H 159/59 H Blood Pressure Mean 92 92 Blood Pressure Source Monitor Monitor Blood Pressure Position Sitting Sitting Blood Pressure Location Left Arm Left Arm Pulse Ox 96 96 Oxygen Delivery Method Room Air Room Air Room Air Weight Weight: 69.4 kg Body Mass Index (BMI) 27.1 Physical Exam Const alert, oriented x3, no apparent distress and average body habitus General Appearance: cooperative, well kempt and well developed Orientation / Consciousness: awake, oriented to person, oriented to place and oriented to time HEENT normocephalic, head/scalp atraumatic, hearing grossly normal bilaterally and moist oral mucous membranes Eyes PERRL, EOMs intact bilaterally and conjunctivae normal Eyes Narrative: Inability to completely close left upper eyelid Neck supple, no JVD, thyroid normal and no carotid bruits General: trachea midline Resp normal respiratory effort, no retractions, no use of accessory muscles and clear to auscultation bilaterally Auscultation: Negative for rales, rhonchi or wheezes Cardio regular rate, regular rhythm, S1 normal heart sound, S2 normal heart sound, no murmurs, no rub and no gallops GI normal to inspection, nondistended, normoactive bowel sounds, soft to palpation, non-tender and non-distended Extremity no clubbing, cyanosis or edema Skin no rashes or lesions noted General Skin Exam: no breakdown Neuro oriented x3, CN's II-XII intact bilaterally, no focal motor deficits and no sensory deficits noted Neuro Narrative: Left facial drooping Sensorium / Orientation: awake and alert Speech: speech normal Psych affect normal Results Lab / Micro Data 05/03/25 14:40 05/03/25 14:40 Labs: Laboratory Results - last 24 hr 05/03/25 14:38: POC Glucose 142 H 05/03/25 14:40: WBC 8.1, RBC 4.13 L, Hgb 12.8, Hct 37.2, MCV 90.1, MCH 31.0, MCHC 34.4, RDW Std Deviation 41.9, RDW Coeff of Bao 12.7, Plt Count 268, MPV 9.5, Immature Gran % (Auto) 0.200, Neut % (Auto) 64.3, Lymph % (Auto) 27.5, [place] % (Auto) 4.8, Eos % (Auto) 2.8, Baso % (Auto) 0.4, Absolute Neuts (auto) 5.2, Absolute Lymphs (auto) 2.22, Nucleated RBC % 0, PT 13.7, INR 1.0, APTT 23.0 L, Sodium 140, Potassium 3.9, Chloride 103, Carbon Dioxide 24.3, Anion Gap 13, BUN 18, Creatinine 1.08, Estim Creat Clear Calc 40.46 L, Est GFR (MDRD) Non-Af 53 L, BUN/Creatinine Ratio 16.4, Glucose 156 H, Calcium 9.5, Troponin T High Sens 16 H 05/03/25 16:45: Troponin T Hi Sens 2 Hr 16 H Imaging Radiology Impression Brain CT 05/03/25 14:43 IMPRESSION: No evidence of acute ischemia or hemorrhage at this time. Stroke Alert: As above The critical findings in the findings and impression above were relayed directly by me by telephone to Arabella Coleus on 05/03/2025 at 2:59 pm with readback verification. Reading Location: [id number] Head/Neck CTA 05/03/25 14:52 IMPRESSION: Stroke Alert: The critical findings in the findings and impression above were relayed directly by me by telephone to Bandar Cole on 05/03/2025 at 3:13 pm with readback verification. Reading Location: [facility] Assessment & Plan Assessment/Plan (1) Weakness on left side of face: PLAN: Plan 1. Left facial drooping-etiology unclear at this point, it is possible the patient could have Hammond's palsy or an ischemic stroke. Patient will be admitted to PCU, she will be seen by PT and OT, she will be seen in consultation by teleneurology, she will remain on dual antiplatelet therapy along with a statin. Repeat CT of the brain will be obtained tomorrow-again patient is not able to have an MRI due to her ICD being incompatible with MRI. #2 coronary artery disease-this appears to be stable at this time, patient will remain on her present medications including dual antiplatelet therapy and a statin. #3 peripheral vascular disease-patient will remain on dual antiplatelet therapy #4 carotid occlusive disease-more pronounced on the right-patient will be seen in consultation by vascular surgery and will undergo a carotid duplex scan to verify the extent of her carotid stenosis. #5 ischemic cardiomyopathy-patient's last echocardiogram in our system was in December 2023, her ejection fraction at that time was 40%, echocardiogram will be repeated, patient does have an ICD in place. Total clinical time spent by myself addressing the patient's medical issues, reviewing all of her data, and collaborating with patient's care team: 55 minutes Charges/Coding Visit Charges Inpatient E&M: 27947 Init Hosp L2
[2025-05-03 19:47] LABS: Troponin T High Sens 4 HR 15 ng/L (<=14)
[2025-05-03] MEDS: Heparin Injection (Vial) 5,000 UNIT/ML VIAL 5000 UNIT SC (21:42)
[2025-05-04 01:15] VITALS: BP 119/55; PULSE 60; RESP 18; TEMP 36.1; O2SAT 96
[2025-05-04 05:08] LABS: Cholesterol 159 mg/dL (<=200); Low Density Lipoprotein Calc. 86 mg/dL; Triglycerides 231 mg/dL; Very Low Density Lipoprotein 46 mg/dL (5-40); cholesterol:hdl ratio screen 4.60
[2025-05-04 05:15] VITALS: BP 118/70; PULSE 60; RESP 18; TEMP 36.3; O2SAT 96
--- NOTE | 2025-05-04 05:55 | CT_ITS ---
PROCEDURE: BRAIN/HEAD WITHOUT CONTRAST 05/04/2025 REASON FOR EXAM: POSSIBLE ISCHEMIC STROKE TECHNIQUE: Procedure Code: CTBR Modality: CT Procedure: BRAIN/HEAD WITHOUT CONTRAST Coronal and Sagittal reconstruction series were provided. One or more dose reduction techniques were used (e.g., Automated exposure control, adjustment of the mA and/or kV according to patient size, use of iterative reconstruction technique. RADIATION DOSE SUMMARY: CTDI Vol 44.99 mGy DLP :846.73 mGycm COMPARISON: 03-May-2025 FINDINGS: Accentuated bilateral cerebral periventricular deep white matter hypodensities denoting hypoperfusion. Park-white matter differentiation is maintained. Unremarkable posterior fossa structures. No intracerebral or extra axial hemorrhage. Dilated ventricular system, cortical sulci and extra-axial CSF spaces. No definite calvarial fractures. No midline shifts or deformity. The osseous structures in the skull base are unremarkable. Empty sella is noted. Paranasal sinuses are unremarkable. Vascular atheromatous calcifications. CT/Brain/Head without Contrast IMPRESSION: No acute cerebrovascular abnormalities. If clinical symptoms persist, further e valuation with MRI may be considered as clinically warranted. No intra or extra-axial acute hemorrhage. Bilateral cerebral microvascular ischemic changes with brain involutional adams es. Stable. [facility]
--- NOTE | 2025-05-04 05:55 | ECHOCS_ITS ---
Reason For Study Reason For Study: TIA/CVA Procedure This was a 2D Doppler, Color Flow transthoracic echocardiogram. Exam performed portable in patient room. Left Ventricle Normal size and thickness. Generalized LV hypokinesis. Severe apical hypokinesis to akinesis. Estimated LVEF 30%. Stage I diastolic dysfunction. Right Ventricle Normal right ventricle. ICD or pacer leads identified within the right ventricle. Atria The left and right atria are normal. ICD or pacer leads identified within the right atrium. Mitral Valve Redundant mitral valve chord. Mild mitral valve regurgitation. Tricuspid Valve Trivial to mild tricuspid valve regurgitation. Normal pulmonary artery pressure. Aortic Valve Moderately calcified aortic valve. Aortic valve sclerosis without stenosis. Pulmonic Valve The pulmonic valve is not well visualized. Trivial pulmonic valve insufficiency. Great Vessels Normal sized aortic root. Pericardium/Pleural No pericardial effusion. Medication Diluted definity 2ml given slow IV push to enhance endocardial definition. MMode/2D Measurements & Calculations LVIDd: 4.5 cm IVSd: 1.1 cm Ao root diam: 2.7 cm LVIDs: 3.7 cm LVPWd: 1.2 cm RVDd: 2.8 cm FS: 17.5 % LAV(MOD-bp): 48.6 ml LVAd ap4: 27.8 cm2 LVAd ap2: 25.7 cm2 LAV(MOD-bp) Indexed: 28.1 ml/m2 LVLd ap4: 7.0 cm LVLd ap2: 6.4 cm LAV(MOD-sp2): 52.4 ml EDV(MOD-sp4): 93.3 ml EDV(MOD-sp2): 85.5 ml LAV(MOD-sp4): 38.0 ml EDV(sp4-el): 94.2 ml EDV(sp2-el): 87.0 ml LVAs ap4: 21.2 cm2 LVAs ap2: 19.9 cm2 LVLs ap4: 6.4 cm LVLs ap2: 6.1 cm ESV(MOD-sp4): 59.5 ml ESV(MOD-sp2): 55.1 ml ESV(sp4-el): 60.1 ml ESV(sp2-el): 54.9 ml EF(MOD-sp4): 36.2 % EF(MOD-sp2): 35.6 % EF(sp4-el): 36.3 % SV(MOD-sp4): 33.8 ml SV(MOD-sp2): 30.4 ml SV(sp4-el): 34.2 ml SI(MOD-sp4): 19.6 ml/m2 SI(MOD-sp2): 17.6 ml/m2 LA A4 area: 16.4 cm2 LA dimension(2D): 3.9 cm RA A4 area: 9.6 cm2 TAPSE: 1.0 cm Time Measurements MV dec time: 0.22 sec Doppler Measurements & Calculations MV E max jatinder: 63.4 cm/sec Lat Peak E' Jatinder: 4.9 cm/sec Med Peak E' Jatinder: 4.2 cm/sec MV A max jatinder: 75.4 cm/sec E/E' lat: 13.0 E/E' med: 15.0 MV E/A: 0.84 MV dec slope: 287.9 cm/sec2 Ao V2 max: 151.3 cm/sec LV V1 max: 118.7 cm/sec Ao max P.2 mmHg LV V1 max P.6 mmHg Ao V2 mean: 103.9 cm/sec Ao mean P.9 mmHg Ao V2 VTI: 36.2 cm PA V2 max: 92.1 cm/sec TR max jatinder: 251.8 cm/sec TR max P.4 mmHg ECHO/Echo Complete W/ Contrast Interpretation Summary Generalized LV hypokinesis. Severe apical hypokinesis to akinesis. Estimated LV EF 30%. Stage I diastolic dysfunction. Redundant mitral valve chord. Mild mitral valve regurgitation. Trivial to mild tricuspid valve regurgitation. Moderately calcified aortic valve. Aortic valve sclerosis without stenosis. Ordering Physician: Olvin Styles Referring Physician: Shahid Raya Chi Performed By: Kierra Newman, СЕРГЕЙ, RVT
[2025-05-04 06:43] VITALS: O2SAT 95
--- NOTE | 2025-05-04 08:38 | PCM.PN.HOSP ---
Reason for Visit Chief Complaint: Left facial drooping, inability to close left eyelid completely Objective Data Objective Data Vital Signs: Vital Signs Temp Pulse Resp BP Pulse Ox O2 Del Method 97.3 F L 60 18 118/70 96 Room Air 05/04/25 05:15 05/04/25 05:15 05/04/25 05:15 05/04/25 05:15 05/04/25 05:15 05/04/25 05:15 Oxygen Delivery Method Room Air Weight: 153 lb 0.013 oz Body Mass Index (BMI) 27.1 Intake & Output: Intake and Output for Last 24 Hours 05/02/25 05/03/25 05/04/25 23:59 23:59 23:59 Intake Total 250 / 650 400 / 400 Balance 250 / 650 400 / 400 Lab / Micro Data 05/03/25 14:40 05/03/25 14:40 Labs: Laboratory Results - last 24 hr 05/03/25 14:38: POC Glucose 142 H 05/03/25 14:40: WBC 8.1, RBC 4.13 L, Hgb 12.8, Hct 37.2, MCV 90.1, MCH 31.0, MCHC 34.4, RDW Std Deviation 41.9, RDW Coeff of Bao 12.7, Plt Count 268, MPV 9.5, Immature Gran % (Auto) 0.200, Neut % (Auto) 64.3, Lymph % (Auto) 27.5, [place] % (Auto) 4.8, Eos % (Auto) 2.8, Baso % (Auto) 0.4, Absolute Neuts (auto) 5.2, Absolute Lymphs (auto) 2.22, Nucleated RBC % 0, PT 13.7, INR 1.0, APTT 23.0 L, Sodium 140, Potassium 3.9, Chloride 103, Carbon Dioxide 24.3, Anion Gap 13, BUN 18, Creatinine 1.08, Estim Creat Clear Calc 40.46 L, Est GFR (MDRD) Non-Af 53 L, BUN/Creatinine Ratio 16.4, Glucose 156 H, Calcium 9.5, Troponin T High Sens 16 H 05/03/25 16:45: Troponin T Hi Sens 2 Hr 16 H 05/03/25 18:38: Troponin T Hi Sens 4Hr 15 H 05/04/25 04:12: Triglycerides 231 H, Cholesterol 159, LDL Cholesterol, Calc 86, VLDL Cholesterol 46 H, HDL Cholesterol 35 L, Cholesterol/HDL Ratio 4.60 Radiography Diagnostic Testing: Radiology Impression Brain CT 05/03/25 14:43 IMPRESSION: No evidence of acute ischemia or hemorrhage at this time. Stroke Alert: As above The critical findings in the findings and impression above were relayed directly by me by telephone to Bandar Cole on 05/03/2025 at 2:59 pm with readback verification. Reading Location: [id number] Head/Neck CTA 05/03/25 14:52 IMPRESSION: Stroke Alert: The critical findings in the findings and impression above were relayed directly by me by telephone to Bandar Cole on 05/03/2025 at 3:13 pm with readback verification. Reading Location: [facility] 05/04/25 05:55 IMPRESSION: No acute cerebrovascular abnormalities. If clinical symptoms persist, further evaluation with MRI may be considered as clinically warranted. No intra or extra-axial acute hemorrhage. Bilateral cerebral microvascular ischemic changes with brain involutional changes. Stable. Physical Exam Narrative Seen and examined Admitted with isolated left-sided facial droop. No other related neurological symptoms. No loss of vision. No ear pain or changes in taste sensation. No headache. Had runny nose and headache for last 2 to 3 days on the weekend General: Alert, Oriented x3, Cooperative HEENT: Atraumatic, PERRLA, EOMI, Normocephalic. Oral: No Gingival or Mucosal Lesions/ Ulcerations Neck: Supple, No JVD, Negative Carotid Bruits Chest wall/Lungs: Air entry diminished in bilateral lung bases. No crepitation/rhonchi Cardiovascular: Regular rate and rhythm, Normal S1,S2, No M/G/R Abdomen: Bowel Sounds Present, Soft, Non Tender, Non-Distended : No dysuria. No renal angle tenderness. No suprapubic tenderness. Extremities: No edema, Capillary Refill Less than 3 Seconds Skin: No rashes, No breakdown Musculoskeletal: No Tenderness to Palpation of Joints or Extremities Neurological: Complete left-sided upper and lower facial nerve paralysis, left 7th nerve. No decrease sensation. No acute muscle weakness. Psych/Mental Status: Flat affect Assessment & Plan Assessment/Plan (1) Weakness on left side of face: PLAN: Plan 79-year-old female was admitted with left facial droop noticed around 10 AM, LKW before bed last night 10 PM before admission 1. Left facial drooping-etiology unclear at this point, it is possible the patient could have Hammond's palsy or an ischemic stroke. Patient will be admitted to PCU, she will be seen by PT and OT, she will be seen in consultation by teleneurology, she will remain on dual antiplatelet therapy along with a statin. Repeat CT of the brain will be obtained tomorrow-again patient is not able to have an MRI due to her ICD being incompatible with MRI. #2 coronary artery disease-this appears to be stable at this time, patient will remain on her present medications including dual antiplatelet therapy and a statin. #3 peripheral vascular disease-patient will remain on dual antiplatelet therapy #4 carotid occlusive disease-more pronounced on the right-patient will be seen in consultation by vascular surgery and will undergo a carotid duplex scan to verify the extent of her carotid stenosis. #5 ischemic cardiomyopathy-patient's last echocardiogram in our system was in December 2023, her ejection fraction at that time was 40%, echocardiogram will be repeated, patient does have an ICD in place. Laboratory Results 05/03/25 14:38: POC Glucose 142 H 05/03/25 14:40: WBC 8.1, RBC 4.13 L, Hgb 12.8, Hct 37.2, MCV 90.1, MCH 31.0, MCHC 34.4, RDW Std Deviation 41.9, RDW Coeff of Bao 12.7, Plt Count 268, MPV 9.5, Immature Gran % (Auto) 0.200, Neut % (Auto) 64.3, Lymph % (Auto) 27.5, [place] % (Auto) 4.8, Eos % (Auto) 2.8, Baso % (Auto) 0.4, Absolute Neuts (auto) 5.2, Absolute Lymphs (auto) 2.22, Nucleated RBC % 0, PT 13.7, INR 1.0, APTT 23.0 L, Sodium 140, Potassium 3.9, Chloride 103, Carbon Dioxide 24.3, Anion Gap 13, BUN 18, Creatinine 1.08, Estim Creat Clear Calc 40.46 L, Est GFR (MDRD) Non-Af 53 L, BUN/Creatinine Ratio 16.4, Glucose 156 H, Calcium 9.5, Troponin T High Sens 16 H 05/03/25 16:45: Troponin T Hi Sens 2 Hr 16 H 05/03/25 18:38: Troponin T Hi Sens 4Hr 15 H 05/04/25 04:12: Triglycerides 231 H, Cholesterol 159, LDL Cholesterol, Calc 86, VLDL Cholesterol 46 H, HDL Cholesterol 35 L, Cholesterol/HDL Ratio 4.60 Clinical Impression(s) from Imaging Studies Brain CT 05/03/25 14:43 IMPRESSION: No evidence of acute ischemia or hemorrhage at this time. Stroke Alert: As above The critical findings in the findings and impression above were relayed directly by me by telephone to Bandar Cole on 05/03/2025 at 2:59 pm with readback verification. Reading Location: [facility] Head/Neck CTA 05/03/25 14:52 IMPRESSION: Stroke Alert: The critical findings in the findings and impression above were relayed directly by me by telephone to Bandar Cole on 05/03/2025 at 3:13 pm with readback verification. Reading Location: [facility]1 Carotid Duplex 05/03/25 16:19 Interpretation Summary Mild (<50%) stenosis right extracranial internal carotid. Moderate (50-69%) stenosis left extracranial internal carotid. Patent and antegrade vertebrals bilaterally. Ordering Physician: Olvin Styels Referring Physician: Shahid Raya Chi Performed By: Flavia Acosta RVT Brain CT 05/04/25 05:55 IMPRESSION: No acute cerebrovascular abnormalities. If clinical symptoms persist, further evaluation with MRI may be considered as clinically warranted. No intra or extra-axial acute hemorrhage. Bilateral cerebral microvascular ischemic changes with brain involutional changes. Stable. [facility] Echocardiogram 05/04/25 05:55 Interpretation Summary Generalized LV hypokinesis. Severe apical hypokinesis to akinesis. Estimated LVEF 30%. Stage I diastolic dysfunction. Redundant mitral valve chord. Mild mitral valve regurgitation. Trivial to mild tricuspid valve regurgitation. Moderately calcified aortic valve. Aortic valve sclerosis without stenosis. Ordering Physician: Olvin Styles Referring Physician: Shahid Raya Chi Performed By: Kierra Newman, СЕРГЕЙ, RVT S NIHSS Nursing Documentation NIHSS Nursing Documentation: NIHSS: Ischemic Stroke/TIA Start: 05/03/25 17:18 Text: For PCU Patients: NIH and Neuro Check every 4 Status: Active hours, PRN and with change in RN caregiver. Freq: [id number] Protocol: Activity Type Activity Date Activity User E-sign Co-sign Detail Recorded Client Recorded Date Recorded By Document 05/04/25 05:15 ADR [id number] 05/04/25 06:27 ADR 05/04/25 05:15 NIH Stroke Scale [NIHSS] A score of 0 is normal or asymptomatic . Total possible score is 42. Inpatient: RN or Physician to activate a stroke alert for onset of new stroke symptoms or with NIHSS increase >/= 3 points. Following change in neurological status, NIHSS will be performed per physician order or more frequently PRN. -1a. Level of Consciousness 0 - Alert; keenly responsive -1b. LOC Questions 0 - Answers BOTH questions correctly -1c. LOC Commands 0 - Performs BOTH tasks correctly -2. Best Gaze 0 - Normal -3. Visual 0 - No visual loss -4. Facial Palsy 3 - Complete paralysis of one or both sides -5a. Left Arm 0 - No drift; arm holds 90 ( or 45) degrees for full 10 seconds -5b. Right Arm 0 - No drift; arm holds 90 ( or 45) degrees for full 10 seconds -6a. Left Leg 0 - No drift; leg holds 30- degree position for full 5 seconds -6b. Right Leg 0 - No drift; leg holds 30- degree position for full 5 seconds -7. Limb Ataxia 0 - Absent -8. Sensory 1 - Mild-to- moderate sensory loss; -9. Best Language 0 - No aphasia; normal -10. Dysarthria 0 - Normal -11. Extinction and Inattention 0 - No abnormality -Total 4 Query Text:A score of 0 is normal or asymptomatic. Total possible score is 42 . ED: Notify Physician for NIHSS increase by > / = 3 points. Inpatient: RN or Physician to activate a stroke alert for NIHSS increase of > / = 3 points. Coma Scale [Assess] -Eye Opening Spontaneous -Motor Obeys Commands -Verbal Oriented [Total] -Coma Scale Total 15
[2025-05-04 08:58] VITALS: BP 130/59; PULSE 62; RESP 14; TEMP 36.7; O2SAT 95
[2025-05-04] MEDS: Heparin Injection (Vial) 5,000 UNIT/ML VIAL 5000 UNIT SC (09:03)
--- NOTE | 2025-05-04 10:45 | CASEMGMT ---
Social Work Per physician pt negative for stroke, therefore PHQ9 not completed. SALVATORE Alvarez
--- NOTE | 2025-05-04 11:34 | DCINST_ITS ---
Discharge Instructions DC O2, CPAP, BIPAP needs Home O2 Discharge instructions: No Dressing / Incision Discharge Activity: Return to Normal Activity Weight Bearing Status: Weight bearing as tolerated Dressing / Incision Call your doctor if you observe: Fever of 101 or Higher, Coldness, Increased Pain, Numbness or Tingling, Change in Color, Inability to urinate, Inability to have a bowel movement, Shortness of breath, Dizziness, Fainting spells, Swelling in the ankles, Chest pain, Prolonged hiccupping, Increased palpitations (irregular heartbeat) and Calf discomfort Follow Up Care When: IN 2 WEEKS Test Results: Test results from this visit will be discussed in further detail at your follow- up appointment, if applicable. Discharge Plan Admission Admit Date/Time: 05/03/25 15:59 Primary Reason for Your Visit: Hammond's palsy, Attending Provider: Ahmet Otto Primary Care Provider: Shahid Raya Chi Consulting Providers: Crow Dc; Eduin Acevedo; Gerald Su; Lindsey Rose; Tiana Shields; Halle Fry; John Mcleod; Chyna Willis; Omega Holcomb; Gilmer Cruz; Peter Wilkinson; Lissett Perry; Lisa Richards; Ankit Cooper; Maritza Moseley; Helen Candelario; Kathryn Stafford; Evert Burciaga; Socrates Calzada; Darion Madden; Aggie Tinoco; Alfredo Yao; Olvin Styles Discharge Orders/Prescriptions Prescriptions: New pantoprazole 40 mg Tablet,Delayed Release (Dr/Ec) 40 mg PO DAILY 30 Days Qty: 30 0RF prednisone 20 mg tablet 60 mg PO BREAKFAST Qty: 24 0RF Rx Instructions: 60 mg for 5 days, then 40 mg for 3 days, 30 mg for 2 days valacyclovir [Valtrex] 1 gram tablet 1,000 mg PO Q8H 7 Days Qty: 21 0RF Continued nitroglycerin 0.4 mg tablet, sublingual 0.4 mg SUBLINGUAL Q5-15M PRN (Reason: chest pain) Qty: 25 3RF Rx Instructions: until response; do not exceed 3 doses per event aspirin 81 MG tablet,chewable 81 mg PO DAILY@0800 lisinopril 20 mg tablet 20 mg PO BID potassium chloride 20 mEq tablet,ER particles/crystals 20 meq PO DAILY simethicone [Gas Relief (simethicone)] 80 mg tablet,chewable 80 mg PO 4X/DAY PRN (Reason: abdominal distention) ibuprofen [Advil] 200 mg tablet 400 mg PO Q8H PRN (Reason: pain) docusate sodium [Colace] 100 mg capsule 100 mg PO BID PRN (Reason: constipation) magnesium 200 mg tablet 200 mg PO DAILY Decara K 1,250-200 mcg capsule 1 cap PO DAILY vitamin B complex Capsule 1 cap PO DAILY furosemide 40 mg tablet 40 mg PO DAILY acetaminophen 500 mg Tablet 1,000 mg PO Q6H PRN (Reason: fever or pain) clopidogrel 75 mg tablet 75 mg PO DAILY Qty: 90 3RF carvedilol [Coreg] 12.5 mg tablet 12.5 mg PO BID Qty: 180 3RF atorvastatin 80 mg tablet 80 mg PO QHS Qty: 90 3RF Patient Comments: [NO ORIGINAL SIG] Referrals / Follow Up: Crow Dc MD [Med Staff - Active Staff, Vascular Surgery] - Within 2 Weeks Referral Note: For moderate left ICA stenosis and mild right ICA history Chris Rain MD [Non-Staff -Ordering Privileges, Neurology] - Within 1 Month Referral Note: For Hammond's palsy Shahid Raya Chi, MD [Primary Care Provider, Geriatrics] - Within 2 Weeks Disposition Disposition (needs filled in before D/C Order can be placed): Home, Self Care
--- NOTE | 2025-05-04 12:50 | NEURO.PNOTE ---
Assessment and Plan: Neuro Assessment/Plan Telestroke Attending Progress Note (Audio/video interface) 79 y/o woman with h/o PVD, CAD s/p stents on ASA and plavix and ischemic cardiomyopathy s/p ICD p/w left facial drooping and inability to close her left eyelid completely which started yesterday morning. She does report of running nose for the last one week. Denies any problems with speech or vision, she denies any problems with strength or coordination in her upper or lower extremities. Also denies ear pain, discharge or rash along with hearing loss. CT head- no acute intracranial process. CTA- YONI 90% and LICA 80% stenosis. Unable to obtain MRI due to ICD. On exam, noticed to have left LMN 7th n. 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 Follow up with vascular surgery for b/l carotid stenosis. 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 Communicated to hospitalist. Sign off for now. Please call us for any questions. I personally attended this patient and spent a total time of 35 minutes evaluating this patient including clinical assessment, review of chart, medical history imaging, and determining appropriate treatment and workup. Subject: Neurology Subjective No acute events overnight. Patient reports no change in facial droop since yesterday. Discussed in detail about likely bells palsy and follow up vascular surgery about b/l carotid stenosis EEG Results Procedure Details EEG Procedure Details: ANA JIMENEZ is a 79 year old F with a past medical history of , who presents for evaluation of Electroencephalogram on DATE at TIME Objective Data Objective Data Vital Signs: Vital Signs Temp Pulse Resp BP Pulse Ox O2 Del Method 98.1 F 62 14 130/59 H 95 Room Air 05/04/25 08:58 05/04/25 08:58 05/04/25 08:58 05/04/25 08:58 05/04/25 08:58 05/04/25 09:19 Oxygen Delivery Method Room Air Weight: 69.4 kg Body Mass Index (BMI) 27.1 Intake & Output: Intake and Output for Last 24 Hours 05/02/25 05/03/25 05/04/25 23:59 23:59 23:59 Intake Total 250 / 650 400 / 400 Balance 250 / 650 400 / 400 Lab / Micro Data 05/03/25 14:40 05/03/25 14:40 Labs: Laboratory Results - last 24 hr 05/03/25 14:38: POC Glucose 142 H 05/03/25 14:40: WBC 8.1, RBC 4.13 L, Hgb 12.8, Hct 37.2, MCV 90.1, MCH 31.0, MCHC 34.4, RDW Std Deviation 41.9, RDW Coeff of Bao 12.7, Plt Count 268, MPV 9.5, Immature Gran % (Auto) 0.200, Neut % (Auto) 64.3, Lymph % (Auto) 27.5, [place] % (Auto) 4.8, Eos % (Auto) 2.8, Baso % (Auto) 0.4, Absolute Neuts (auto) 5.2, Absolute Lymphs (auto) 2.22, Nucleated RBC % 0, PT 13.7, INR 1.0, APTT 23.0 L, Sodium 140, Potassium 3.9, Chloride 103, Carbon Dioxide 24.3, Anion Gap 13, BUN 18, Creatinine 1.08, Estim Creat Clear Calc 40.46 L, Est GFR (MDRD) Non-Af 53 L, BUN/Creatinine Ratio 16.4, Glucose 156 H, Calcium 9.5, Troponin T High Sens 16 H 05/03/25 16:45: Troponin T Hi Sens 2 Hr 16 H 05/03/25 18:38: Troponin T Hi Sens 4Hr 15 H 05/04/25 04:12: Triglycerides 231 H, Cholesterol 159, LDL Cholesterol, Calc 86, VLDL Cholesterol 46 H, HDL Cholesterol 35 L, Cholesterol/HDL Ratio 4.60 05/04/25 11:41: POC Glucose 165 H Radiography Diagnostic Testing: Radiology Impression Brain CT 05/03/25 14:43 IMPRESSION: No evidence of acute ischemia or hemorrhage at this time. Stroke Alert: As above The critical findings in the findings and impression above were relayed directly by me by telephone to Bandar Cole on 05/03/2025 at 2:59 pm with readback verification. Reading Location: [id number] Head/Neck CTA 05/03/25 14:52 IMPRESSION: Stroke Alert: The critical findings in the findings and impression above were relayed directly by me by telephone to Bandar Cole on 05/03/2025 at 3:13 pm with readback verification. [facility] 05/04/25 05:55 IMPRESSION: No acute cerebrovascular abnormalities. If clinical symptoms persist, further evaluation with MRI may be considered as clinically warranted. No intra or extra-axial acute hemorrhage. Bilateral cerebral microvascular ischemic changes with brain involutional changes. Stable. Reading Location: [place] [id number] Physical Exam Narrative General: The patient appears nutritionally appropriate, well-groomed, and appears comfortable in no acute distress. Mental Status:? The patient?s mental status was normal including orientation.? Language was intact.? Cranial nerves:? Visual tobar full, and extra-ocular motion was intact. LMN left 7th n. palsy noticed. Motor: Normal strength in all extremities. Sensation: Intact to touch in all extremities.? Coordination:? Bilateral finger to nose was normal.? There was no dysmetria. Gait:? deferred. NIHSS NIHSS Nursing Documentation NIHSS Nursing Documentation: NIHSS: Ischemic Stroke/TIA Start: 05/03/25 17:18 Text: For PCU Patients: NIH and Neuro Check every 4 Status: Active hours, PRN and with change in RN caregiver. Freq: [id number] Protocol: Activity Type Activity Date Activity User E-sign Co-sign Detail Recorded Client Recorded Date Recorded By Document 05/04/25 08:58 desktop 05/04/25 09:01 NB 05/04/25 08:58 NIH Stroke Scale [NIHSS] A score of 0 is normal or asymptomatic . Total possible score is 42. Inpatient: RN or Physician to activate a stroke alert for onset of new stroke symptoms or with NIHSS increase >/= 3 points. Following change in neurological status, NIHSS will be performed per physician order or more frequently PRN. -1a. Level of Consciousness 0 - Alert; keenly responsive -1b. LOC Questions 0 - Answers BOTH questions correctly -1c. LOC Commands 0 - Performs BOTH tasks correctly -2. Best Gaze 0 - Normal -3. Visual 0 - No visual loss -4. Facial Palsy 3 - Complete paralysis of one or both sides -5a. Left Arm 0 - No drift; arm holds 90 ( or 45) degrees for full 10 seconds -5b. Right Arm 0 - No drift; arm holds 90 ( or 45) degrees for full 10 seconds -6a. Left Leg 0 - No drift; leg holds 30- degree position for full 5 seconds -6b. Right Leg 0 - No drift; leg holds 30- degree position for full 5 seconds -7. Limb Ataxia 0 - Absent -8. Sensory 0 - Normal; no sensory loss -9. Best Language 0 - No aphasia; normal -10. Dysarthria 0 - Normal -11. Extinction and Inattention 0 - No abnormality -Total 3 Query Text:A score of 0 is normal or asymptomatic. Total possible score is 42 . ED: Notify Physician for NIHSS increase by > / = 3 points. Inpatient: RN or Physician to activate a stroke alert for NIHSS increase of > / = 3 points. Coma Scale [Assess] -Eye Opening Spontaneous -Motor Obeys Commands -Verbal Oriented [Total] -Coma Scale Total 15 NIHSS 1a. Level of Consciousness: 0 - Alert; keenly responsive 1b. LOC Questions: 0 - Answers BOTH questions correctly 1c. LOC Commands: 0 - Performs BOTH tasks correctly 2. Best Gaze: 0 - Normal 3. Visual: 0 - No visual loss 4. Facial Palsy: 3 - Complete paralysis of one or both sides 5a. Left Arm: 0 - No drift; arm holds 90 (or 45) degrees for full 10 seconds 5b. Right Arm: 0 - No drift; arm holds 90 (or 45) degrees for full 10 seconds 6a. Left Le - No drift; leg holds 30-degree position for full 5 seconds 6b. Right Le - No drift; leg holds 30-degree position for full 5 seconds 7. Limb Ataxia: 0 - Absent 8. Sensory: 0 - Normal; no sensory loss 9. Best Language: 0 - No aphasia; normal 10. Dysarthria: 0 - Normal 11. Extinction and Inattention: 0 - No abnormality Total: 3
[2025-05-04 14:00] VITALS: BP 139/66; PULSE 60; RESP 14; TEMP 36.7; O2SAT 97
[2025-05-04 14:43] VITALS: BMI 27.1
[2025-05-04] MEDS: Petrolatum,White 3.75GM OPTH.TUBE 1 APPLIC LEFT EYE (14:45)
--- NOTE | 2025-05-04 14:47 | PCM.DC.SUM ---
Providers Date of Admission: 05/03/25 Date of Discharge: 05/04/25 Primary Care Physician: Dr. Shahid Raya MD Consultations 05/03/25 17:18 Consult: Tele-Neurology Routine Consulting Provider: [facility] Reason for Consult: Acute Ischemic Stroke/TIA EMERGENT Consult: No Notified: Yes Date Notified: 05/03/25 Time Notified: 18:05 Method of Notification: Answering Service Nursing Unit Staff Notify [facility] of Tele-Neurology Consult: Yes Consult: Vascular Surgery Routine Consulting Provider: Crow Dc Reason for Consult: carotid stenosis EMERGENT Consult: No Notified: Yes Date Notified: 05/03/25 Time Notified: 16:07 Method of Notification: Verbal Reason For Visit: LEFT FACIAL DROOPING Diagnosis Discharge Diagnosis (1) Weakness on left side of face: Status: Acute Code(s): R29.810 - Facial weakness Plan 79-year-old female was admitted with left facial droop noticed around 10 AM, LKW before bed last night 10 PM before admission 1. 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 Patient cannot have MRI because of the ICD. Rest of the workup was done which does not show any acute intracranial changes on initial and repeat CT scan of head. On ear exam through autoscope, did not show any rash in the EAC. Left ear drum looks good. Right EAC has mild wax. No external skin rash or oral lesions. Patient cannot has weakness of left upper eyelid/levator palpebrae superioris and orbicularis oculi. 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 Started on prednisone 60 mg daily in the morning. After discussion with the neurologist, started on antiviral acyclovir and discharged on Valtrex 1 g 3 times daily for 7 days and prednisone high-dose 60 mg daily for 5 days and then 40 mg for 3 days and 30 mg for 2 days. Acute stroke ruled out. Patient was admitted to PT OT and speech therapy. #2. Coronary artery disease: No acute issues of chest pain or cardiac ischemia. Patient's present medications including dual antiplatelet therapy and a statin will continue. 2D echo shows generalized LV hypokinesis with severe apical hypokinesis. EF 30%. No mention about PFO. Moderately calcified aortic valve with sclerosis but no stenosis #3 peripheral vascular disease-patient will remain on dual antiplatelet therapy #4 Bilateral carotid stenosis: Patient advised to follow-up with vascular surgeon Dr. Crow Dc for bilateral carotid stenosis. CTA and carotid Doppler shows moderate left ICA and mild right ICA stenosis. #5. Chronic HFrEF with/due to ischemic cardiomyopathy-patient's last echocardiogram in our system was in December 2023, her ejection fraction at that time was 40%. Repeat echo done as mentioned above. EF 30% on repeat echo 6. Possible undiagnosed diabetes mellitus type 2: A1c ordered. Patient has hyperglycemia as mentioned below. Glucose 156 Discharge medication reconciliation done. Discharge follow-up instructions completed. Discharge process discussed with the patient and all questions were answered to patient's satisfaction. Follow with PCP in 1 to 2 weeks Total time spent, exact 35 minutes on discharge meds reconciliation, examination, coordination of care with nurses and ancillary staff, review of imaging and blood test and discussion with the patient on follow-up instructions. Laboratory Results 05/03/25 14:38: POC Glucose 142 H 05/03/25 14:40: WBC 8.1, RBC 4.13 L, Hgb 12.8, Hct 37.2, MCV 90.1, MCH 31.0, MCHC 34.4, RDW Std Deviation 41.9, RDW Coeff of Bao 12.7, Plt Count 268, MPV 9.5, Immature Gran % (Auto) 0.200, Neut % (Auto) 64.3, Lymph % (Auto) 27.5, Hendry % (Auto) 4.8, Eos % (Auto) 2.8, Baso % (Auto) 0.4, Absolute Neuts (auto) 5.2, Absolute Lymphs (auto) 2.22, Nucleated RBC % 0, PT 13.7, INR 1.0, APTT 23.0 L, Sodium 140, Potassium 3.9, Chloride 103, Carbon Dioxide 24.3, Anion Gap 13, BUN 18, Creatinine 1.08, Estim Creat Clear Calc 40.46 L, Est GFR (MDRD) Non-Af 53 L, BUN/Creatinine Ratio 16.4, Glucose 156 H, Calcium 9.5, Troponin T High Sens 16 H 05/03/25 16:45: Troponin T Hi Sens 2 Hr 16 H 05/03/25 18:38: Troponin T Hi Sens 4Hr 15 H 05/04/25 04:12: Triglycerides 231 H, Cholesterol 159, LDL Cholesterol, Calc 86, VLDL Cholesterol 46 H, HDL Cholesterol 35 L, Cholesterol/HDL Ratio 4.60 Clinical Impression(s) from Imaging Studies Brain CT 05/03/25 14:43 IMPRESSION: No evidence of acute ischemia or hemorrhage at this time. Stroke Alert: As above The critical findings in the findings and impression above were relayed directly by me by telephone to Bandar Cole on 05/03/2025 at 2:59 pm with readback verification. Reading Location: [id number] Head/Neck CTA 05/03/25 14:52 IMPRESSION: Stroke Alert: The critical findings in the findings and impression above were relayed directly by me by telephone to Bandar Cole on 05/03/2025 at 3:13 pm with readback verification. Reading Location: [facility] Carotid Duplex 05/03/25 16:19 Interpretation Summary Mild (<50%) stenosis right extracranial internal carotid. Moderate (50-69%) stenosis left extracranial internal carotid. Patent and antegrade vertebrals bilaterally. Ordering Physician: Olvin Styles Referring Physician: Shahid Raya Chi Performed By: Flavia Acosta RVT Brain CT 05/04/25 05:55 IMPRESSION: No acute cerebrovascular abnormalities. If clinical symptoms persist, further evaluation with MRI may be considered as clinically warranted. No intra or extra-axial acute hemorrhage. Bilateral cerebral microvascular ischemic changes with brain involutional changes. Stable. Reading Location[facility] Echocardiogram 05/04/25 05:55 Interpretation Summary Generalized LV hypokinesis. Severe apical hypokinesis to akinesis. Estimated LVEF 30%. Stage I diastolic dysfunction. Redundant mitral valve chord. Mild mitral valve regurgitation. Trivial to mild tricuspid valve regurgitation. Moderately calcified aortic valve. Aortic valve sclerosis without stenosis. Ordering Physician: Olvin Styles Referring Physician: Shahid Raya Chi Performed By: Kierra Newman, СЕРГЕЙ, RVT Medications at Discharge Home Medications aspirin 81 mg chewable tablet 81 mg PO DAILY@0800 blood thinner 09/27/16 nitroglycerin 0.4 mg sublingual tablet 0.4 mg sublingual Q5-15M PRN chest pain #25 tabs 10/16/22 clopidogrel 75 mg tablet 75 mg PO DAILY blood thinner #90 tabs 10/27/24 atorvastatin 80 mg tablet 80 mg PO QHS cholesterol #90 tabs 01/11/25 carvedilol 12.5 mg tablet (Coreg) 12.5 mg PO BID bp #180 tabs 01/11/25 acetaminophen 500 mg tablet 1,000 mg PO Q6H PRN fever or pain 05/03/25 docusate sodium 100 mg capsule (Colace) 100 mg PO BID PRN constipation 05/03/25 furosemide 40 mg tablet 40 mg PO DAILY dieretic 05/03/25 ibuprofen 200 mg tablet (Advil) 400 mg PO Q8H PRN pain 05/03/25 lisinopril 20 mg tablet 20 mg PO BID 05/03/25 magnesium 200 mg tablet 200 mg PO DAILY 05/03/25 potassium chloride 20 mEq tablet,extended release(part/cryst) 20 meq PO DAILY 05/03/25 simethicone 80 mg chewable tablet (Gas Relief (simethicone)) 80 mg PO 4X/DAY PRN abdominal distention 05/03/25 vitamin B complex 1 cap PO DAILY 11/10/25 vitamin D3 1,250 mcg (50,000 unit)-vitamin K2 200 mcg capsule (Decara K) 1 cap PO DAILY 05/03/25 pantoprazole 40 mg tablet,delayed release 40 mg PO DAILY 30 days #30 tabs 05/04/25 prednisone 20 mg tablet 60 mg (3 x 20 mg) PO BREAKFAST #24 tabs 05/04/25 valacyclovir 1 gram tablet (Valtrex) 1,000 mg PO Q8H 1 week #21 tabs 05/04/25 Physical Exam Narrative Seen and examined Admitted with isolated left-sided facial droop. No other related neurological symptoms. No loss of vision. No ear pain or changes in taste sensation. No headache. Had runny nose and headache for last 2 to 3 days on the weekend General: Alert, Oriented x3, Cooperative HEENT: Atraumatic, PERRLA, EOMI, Normocephalic. No rash/perforation of TM on otoscopic exam Oral: No Gingival or Mucosal Lesions/ Ulcerations Neck: Supple, No JVD, Negative Carotid Bruits Chest wall/Lungs: Air entry diminished in bilateral lung bases. No crepitation/rhonchi Cardiovascular: Regular rate and rhythm, Normal S1,S2, No M/G/R Abdomen: Bowel Sounds Present, Soft, Non Tender, Non-Distended : No dysuria. No renal angle tenderness. No suprapubic tenderness. Extremities: No edema, Capillary Refill Less than 3 Seconds Skin: No rashes, No breakdown Musculoskeletal: No Tenderness to Palpation of Joints or Extremities Neurological: Complete left-sided upper and lower facial nerve paralysis, left 7th nerve. No decrease sensation. No acute muscle weakness. Psych/Mental Status: Flat affect Weight / BMI Weight Weight: 153 lb 0.013 oz Body Mass Index (BMI) 27.1 ABG / Lab / Microbiology Data 05/03/25 14:40 05/03/25 14:40 Laboratory: Laboratory Results - last 24 hr 05/03/25 14:38: POC Glucose 142 H 05/03/25 14:40: WBC 8.1, RBC 4.13 L, Hgb 12.8, Hct 37.2, MCV 90.1, MCH 31.0, MCHC 34.4, RDW Std Deviation 41.9, RDW Coeff of Bao 12.7, Plt Count 268, MPV 9.5, Immature Gran % (Auto) 0.200, Neut % (Auto) 64.3, Lymph % (Auto) 27.5, Hendry % (Auto) 4.8, Eos % (Auto) 2.8, Baso % (Auto) 0.4, Absolute Neuts (auto) 5.2, Absolute Lymphs (auto) 2.22, Nucleated RBC % 0, PT 13.7, INR 1.0, APTT 23.0 L, Sodium 140, Potassium 3.9, Chloride 103, Carbon Dioxide 24.3, Anion Gap 13, BUN 18, Creatinine 1.08, Estim Creat Clear Calc 40.46 L, Est GFR (MDRD) Non-Af 53 L, BUN/Creatinine Ratio 16.4, Glucose 156 H, Calcium 9.5, Troponin T High Sens 16 H 05/03/25 16:45: Troponin T Hi Sens 2 Hr 16 H 05/03/25 18:38: Troponin T Hi Sens 4Hr 15 H 05/04/25 04:12: Triglycerides 231 H, Cholesterol 159, LDL Cholesterol, Calc 86, VLDL Cholesterol 46 H, HDL Cholesterol 35 L, Cholesterol/HDL Ratio 4.60 05/04/25 11:41: POC Glucose 165 H Radiography Diagnostic Testing: Radiology Impression Brain CT 05/03/25 14:43 IMPRESSION: No evidence of acute ischemia or hemorrhage at this time. Stroke Alert: As above The critical findings in the findings and impression above were relayed directly by me by telephone to Bandar Cole on 05/03/2025 at 2:59 pm with readback verification. Reading Location: [id number] Head/Neck CTA 05/03/25 14:52 IMPRESSION: Stroke Alert: The critical findings in the findings and impression above were relayed directly by me by telephone to Bandar Cole on 05/03/2025 at 3:13 pm with readback verification. Reading Location: [facility] Carotid Duplex 05/03/25 16:19 Interpretation Summary Mild (<50%) stenosis right extracranial internal carotid. Moderate (50-69%) stenosis left extracranial internal carotid. Patent and antegrade vertebrals bilaterally. Ordering Physician: Olvin Styles Referring Physician: Shahid Raya Chi Performed By: Flavia Acosta, DEEPALIT Brain CT 05/04/25 05:55 IMPRESSION: No acute cerebrovascular abnormalities. If clinical symptoms persist, further evaluation with MRI may be considered as clinically warranted. No intra or extra-axial acute hemorrhage. Bilateral cerebral microvascular ischemic changes with brain involutional changes. Stable. Reading Location: [place] [id number] Echocardiogram 05/04/25 05:55 Interpretation Summary Generalized LV hypokinesis. Severe apical hypokinesis to akinesis. Estimated LVEF 30%. Stage I diastolic dysfunction. Redundant mitral valve chord. Mild mitral valve regurgitation. Trivial to mild tricuspid valve regurgitation. Moderately calcified aortic valve. Aortic valve sclerosis without stenosis. Ordering Physician: Olvin Styles Referring Physician: Shahid Raya Chi Performed By: Kierra Newman RDCS, RVT D/C Instructions Weight Bearing Status: Weight bearing as tolerated Call your doctor if you observe: Fever of 101 or Higher, Coldness, Increased Pain, Numbness or Tingling, Change in Color, Inability to urinate, Inability to have a bowel movement, Shortness of breath, Dizziness, Fainting spells, Swelling in the ankles, Chest pain, Prolonged hiccupping, Increased palpitations (irregular heartbeat) and Calf discomfort DC O2, CPAP, BIPAP Needs Home O2 Discharge instructions: No When: IN 2 WEEKS Meaningful Use Info Meaningful Use Meaningful Use Diagnoses (Choose all that apply): None applicable Discharge Plan Admission Admit Date/Time: 05/03/25 15:59 Primary Reason for Your Visit: Hammond's palsy, Attending Provider: Ahmet Otto Primary Care Provider: Shahid Raya Chi Consulting Providers: Crow Dc; Eduin Acevedo; Gerald Su; Lindsey Rose; Tiana Shields; Halle Fry; John Mcleod; Chyna Willis; Omega Holcomb; Gilmer Cruz; Peter Wilkinson; Lissett Perry; Lisa Richards; Ankit Cooper; Maritza Moseley; Helen Candelario; Kathryn Stafford; Evert Burciaga; Socrates Calzada; Darion Madden; Aggie Tinoco; Alfredo Yao; Olvin Styles Discharge Orders/Prescriptions Prescriptions: New pantoprazole 40 mg Tablet,Delayed Release (Dr/Ec) 40 mg PO DAILY 30 Days Qty: 30 0RF prednisone 20 mg tablet 60 mg PO BREAKFAST Qty: 24 0RF Rx Instructions: 60 mg for 5 days, then 40 mg for 3 days, 30 mg for 2 days valacyclovir [Valtrex] 1 gram tablet 1,000 mg PO Q8H 7 Days Qty: 21 0RF Continued nitroglycerin 0.4 mg tablet, sublingual 0.4 mg SUBLINGUAL Q5-15M PRN (Reason: chest pain) Qty: 25 3RF Rx Instructions: until response; do not exceed 3 doses per event aspirin 81 MG tablet,chewable 81 mg PO DAILY@0800 lisinopril 20 mg tablet 20 mg PO BID potassium chloride 20 mEq tablet,ER particles/crystals 20 meq PO DAILY simethicone [Gas Relief (simethicone)] 80 mg tablet,chewable 80 mg PO 4X/DAY PRN (Reason: abdominal distention) ibuprofen [Advil] 200 mg tablet 400 mg PO Q8H PRN (Reason: pain) docusate sodium [Colace] 100 mg capsule 100 mg PO BID PRN (Reason: constipation) magnesium 200 mg tablet 200 mg PO DAILY Decara K 1,250-200 mcg capsule 1 cap PO DAILY vitamin B complex Capsule 1 cap PO DAILY furosemide 40 mg tablet 40 mg PO DAILY acetaminophen 500 mg Tablet 1,000 mg PO Q6H PRN (Reason: fever or pain) clopidogrel 75 mg tablet 75 mg PO DAILY Qty: 90 3RF carvedilol [Coreg] 12.5 mg tablet 12.5 mg PO BID Qty: 180 3RF atorvastatin 80 mg tablet 80 mg PO QHS Qty: 90 3RF Patient Comments: [NO ORIGINAL SIG] Referrals / Follow Up: Crow cD MD [Med Staff - Active Staff, Vascular Surgery] - Within 2 Weeks Referral Note: For moderate left ICA stenosis and mild right ICA history Chris Rain MD [Non-Staff -Ordering Privileges, Neurology] - Within 1 Month Referral Note: For Hammond's palsy Shahid Raya Chi, MD [Primary Care Provider, Geriatrics] - Within 2 Weeks Disposition Disposition (needs filled in before D/C Order can be placed): Home, Self Care Charges/Coding Visit Charges Inpatient E&M: 75892 Disch Hosp >30min
--- NOTE | 2025-05-04 15:06 | CASEMGMT ---
Patient has order for discharge. RN CM in to discuss needs at discharge, family at bedside. No therapy recommended at discharge. Patient denies needs or help at discharge. Patient had no further questions or concerns.
--- NOTE | 2025-05-04 15:11 | EX.PCM.CON.S ---
Assessment & Plan Assessment/Plan (1) Bilateral carotid artery stenosis: PLAN: CTA images were reviewed; R ICA stenosis 78% and L ICA stenosis 61% by NASCET. R ICA stenosis is at threshold for intervention even if asymptomatic; will plan to coordinate and discuss further on an outpatient basis. Continue with medical management with daily ASA and high-intensity statin. HPI Consult Data Date of Consult: 05/04/25 HPI Narrative HPI Narrative: ANA JIMENEZ, is a 79 F who presented to the [facility] ER yesterday with sudden onset of L sided facial droop and inability to close the left eye. She was admitted for stroke workup; she was unable to get MRI due to noncompatible pacemaker but serial CT did not demonstrate signs of an infarct, neurology consultation ultimately felt this was Hammond's palsy. She did have Head/Neck CTA which demonstrated significant carotid artery stenosis for which we are consulted. She reports she woke up with these symptoms yesterday. She had a very mild URI a couple weeks ago, just a runny nose and watery eyes. She has recently started Skyrizi for her psoriasis, it has helped her psoriasis significantly. She otherwise has no prior history of Hammond's palsy or prior TIA/CVA. She is known to our office for management of her PAD; she has had prior R common/external iliac artery lithotripsy angioplasty and stent, R common fem endart, R to L fem-fem bypass, and bilateral sartorius flaps on 11/17/24 to address LLE rest pain and severe multilevel disease bilaterally. She has been stable from this standpoint. She is on ASA 81mg daily and atorvastatin 80mg daily. 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) Nicotine dependence Essential (primary) hypertension Ischemic cardiomyopathy Chronic systolic congestive heart failure Atrioventricular block Old myocardial infarction Atherosclerosis of coronary artery 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 Tobacco abuse Psoriasis Hypercholesteremia Syncope and collapse Hyperlipemia Hypokalemia History of syncope History of sinus bradycardia Home Medications ?Medication ?Instructions ?Recorded ?Last Taken ?Type aspirin 81 mg chewable tablet 81 mg PO DAILY@0800 blood thinner 09/27/16 05/03/25 History nitroglycerin 0.4 mg sublingual 0.4 mg sublingual Q5-15M PRN chest 10/16/22 Unknown Rx tablet pain #25 tabs clopidogrel 75 mg tablet 75 mg PO DAILY blood thinner #90 10/27/24 05/03/25 Rx tabs atorvastatin 80 mg tablet 80 mg PO QHS cholesterol #90 tabs 01/11/25 05/02/25 Rx carvedilol 12.5 mg tablet (Coreg) 12.5 mg PO BID bp #180 tabs 01/11/25 05/03/25 Rx acetaminophen 500 mg tablet 1,000 mg PO Q6H PRN fever or pain 05/03/25 Unknown History docusate sodium 100 mg capsule 100 mg PO BID PRN constipation 05/03/25 Unknown History (Colace) furosemide 40 mg tablet 40 mg PO DAILY dieretic 05/03/25 05/03/25 History ibuprofen 200 mg tablet (Advil) 400 mg PO Q8H PRN pain 05/03/25 05/03/25 History lisinopril 20 mg tablet 20 mg PO BID 05/03/25 05/03/25 History magnesium 200 mg tablet 200 mg PO DAILY 05/03/25 05/03/25 History potassium chloride 20 mEq 20 meq PO DAILY 05/03/25 05/03/25 History tablet,extended release(part/cryst) simethicone 80 mg chewable tablet 80 mg PO 4X/DAY PRN abdominal 05/03/25 Unknown History (Gas Relief (simethicone)) distention vitamin B complex 1 cap PO DAILY 05/03/25 05/03/25 History vitamin D3 1,250 mcg (50,000 1 cap PO DAILY 05/03/25 05/03/25 History unit)-vitamin K2 200 mcg capsule (Decara K) pantoprazole 40 mg tablet,delayed 40 mg PO DAILY 30 days #30 tabs 05/04/25 Unknown Rx release prednisone 20 mg tablet 60 mg (3 x 20 mg) PO BREAKFAST #24 05/04/25 Unknown Rx tabs valacyclovir 1 gram tablet 1,000 mg PO Q8H 1 week #21 tabs 05/04/25 Unknown Rx (Valtrex) Allergy/AdvReac Type Severity Reaction Status Date / Time No Known Allergies Allergy Verified 05/03/25 14:37 Family History (Reviewed 03/02/25 @ 15:51 by Nancy Elizondo BOOK JACKET COVER MACHINE OPERATOR, BOOK JACKET COVER MACHINE OPERATOR-C) Father CAD (coronary artery disease) Myocardial infarction Brother CAD (coronary artery disease) Myocardial infarction Mother Cancer Surgical History (Updated 03/02/25 @ 15:56 by Nancy Elizondo BOOK JACKET COVER MACHINE OPERATOR, BOOK JACKET COVER MACHINE OPERATOR-C) Status post femorofemoral bypass surgery History of electrophysiologic study (03/07/12) Biventricular ICD (implantable cardioverter-defibrillator) in place (08/04/20) History of coronary artery stent placement (03/06/12) H/O coronary artery bypass surgery (04/28/97) Saphenous vein graft to CFX saphenous vein graft to RCA H/O tubal ligation History of left heart catheterization (06/27/20) Social History (Reviewed 03/02/25 @ 15:51 by Nancy Elizondo BOOK JACKET COVER MACHINE OPERATOR, BOOK JACKET COVER MACHINE OPERATOR-C) household members: spouse and family housing: house Smoking Status: Current every day smoker tobacco type: cigarettes second hand exposure: Yes alcohol intake: current alcohol intake frequency: holidays/special occasions only substance use type: does not use caffeine: Yes Type: carbonated beverages Number of servings: 4 what type of physical activity do you participate in: none seatbelt use: always do you feel safe at home: Yes Physical Exam Const alert and oriented x3 General Appearance: cooperative HEENT normocephalic Eyes Eyes Narrative: L eye inability to blink, eye watering; otherwise normal to inspection Neck General: normal visual inspection Resp normal respiratory effort Effort and Inspection: able to speak in complete sentences Cardio Rate: regular rate Rhythm: regular rhythm Extremity normal to inspection Skin no rashes or lesions noted Neuro Neuro Narrative: L sided facial droop, inability to close L eye, otherwise intact Psych mental status grossly normal Appearance: grossly normal Lab / Micro Data 05/03/25 14:40 05/03/25 14:40 Labs: Laboratory Results - last 24 hr 05/03/25 14:40: PT 13.7, INR 1.0, APTT 23.0 L, Sodium 140, Potassium 3.9, Chloride 103, Carbon Dioxide 24.3, Anion Gap 13, BUN 18, Creatinine 1.08, Estim Creat Clear Calc 40.46 L, Est GFR (MDRD) Non-Af 53 L, BUN/Creatinine Ratio 16.4, Glucose 156 H, Calcium 9.5, Troponin T High Sens 16 H 05/03/25 16:45: Troponin T Hi Sens 2 Hr 16 H 05/03/25 18:38: Troponin T Hi Sens 4Hr 15 H 05/04/25 04:12: Triglycerides 231 H, Cholesterol 159, LDL Cholesterol, Calc 86, VLDL Cholesterol 46 H, HDL Cholesterol 35 L, Cholesterol/HDL Ratio 4.60 05/04/25 11:41: POC Glucose 165 H Imaging Radiology Impression Head/Neck CTA 05/03/25 14:52 IMPRESSION: Stroke Alert: The critical findings in the findings and impression above were relayed directly by me by telephone to Bandar Cole on 05/03/2025 at 3:13 pm with readback verification. Reading Location: [place] [id number] Carotid Duplex 05/03/25 16:19 Interpretation Summary Mild (<50%) stenosis right extracranial internal carotid. Moderate (50-69%) stenosis left extracranial internal carotid. Patent and antegrade vertebrals bilaterally. Ordering Physician: Olvin Styles Referring Physician: Shahid Raya Chi Performed By: Flavia Acosta RVT Brain CT 05/04/25 05:55 IMPRESSION: No acute cerebrovascular abnormalities. If clinical symptoms persist, further evaluation with MRI may be considered as clinically warranted. No intra or extra-axial acute hemorrhage. Bilateral cerebral microvascular ischemic changes with brain involutional changes. Stable. Reading Location[facility] Echocardiogram 05/04/25 05:55 Interpretation Summary Generalized LV hypokinesis. Severe apical hypokinesis to akinesis. Estimated LVEF 30%. Stage I diastolic dysfunction. Redundant mitral valve chord. Mild mitral valve regurgitation. Trivial to mild tricuspid valve regurgitation. Moderately calcified aortic valve. Aortic valve sclerosis without stenosis. Ordering Physician: Olvin Styles Referring Physician: Shahid Raya Chi Performed By: Kierra Newman, СЕРГЕЙ, RVT Charges/Coding Visit Charges Inpatient E&M: 93702 Init Hosp L1
--- NOTE | 2025-05-04 15:28 | PHA.DC.MC.R ---
Pharmacy [facility] Counseling Pharmacy Service has performed discharge medication reconciliation and counseling for this patient. The patient's discharge medication list was reviewed for discrepancies and discrepancies were resolved. The patient was counseled on the following discharge medications and changes in medications for homegoing were reviewed. The Reason for Use, instructions for use, and potential side effects were reviewed for all new medications. The patient's questions regarding all of their medications were answered. 1. Pantoprazole 40 mg PO daily 2. Prednisone 60 mg PO daily X 8 days 3. Valtrex 1 gram Q8 x 7 days The patient was able to verbally demonstrate an understanding of their discharge medications. The patient was counselled on new medications by clinical pharmacy specialist Azeem. Medications at Discharge Home Medications aspirin 81 mg chewable tablet 81 mg PO DAILY@0800 blood thinner 09/27/16 nitroglycerin 0.4 mg sublingual tablet 0.4 mg sublingual Q5-15M PRN chest pain #25 tabs 10/16/22 clopidogrel 75 mg tablet 75 mg PO DAILY blood thinner #90 tabs 10/27/24 atorvastatin 80 mg tablet 80 mg PO QHS cholesterol #90 tabs 01/11/25 carvedilol 12.5 mg tablet (Coreg) 12.5 mg PO BID bp #180 tabs 01/11/25 acetaminophen 500 mg tablet 1,000 mg PO Q6H PRN fever or pain 05/03/25 docusate sodium 100 mg capsule (Colace) 100 mg PO BID PRN constipation 05/03/25 furosemide 40 mg tablet 40 mg PO DAILY dieretic 05/03/25 ibuprofen 200 mg tablet (Advil) 400 mg PO Q8H PRN pain 05/03/25 lisinopril 20 mg tablet 20 mg PO BID 05/03/25 magnesium 200 mg tablet 200 mg PO DAILY 05/03/25 potassium chloride 20 mEq tablet,extended release(part/cryst) 20 meq PO DAILY 05/03/25 simethicone 80 mg chewable tablet (Gas Relief (simethicone)) 80 mg PO 4X/DAY PRN abdominal distention 05/03/25 vitamin B complex 1 cap PO DAILY 05/03/25 vitamin D3 1,250 mcg (50,000 unit)-vitamin K2 200 mcg capsule (Decara K) 1 cap PO DAILY 05/03/25 pantoprazole 40 mg tablet,delayed release 40 mg PO DAILY 30 days #30 tabs 05/04/25 prednisone 20 mg tablet 60 mg (3 x 20 mg) PO BREAKFAST #24 tabs 05/04/25 valacyclovir 1 gram tablet (Valtrex) 1,000 mg PO Q8H 1 week #21 tabs 05/04/25
== END 2025-05-04 16:44 | disposition home or self-care (01) ==
LOC: ED 16:22 → PCU 16:23
PROVIDERS: Admitting Provider Internal Medicine; Emergency Provider Emergency Medicine; PCP Family Medicine Geriatric Medicine; Visit Provider Internal Medicine
DX: G51.0 Bell's palsy (principal); I11.0 Hypertensive heart disease with heart failure; I50.22 Chronic systolic (congestive) heart failure; I65.23 Occlusion and stenosis of bilateral carotid arteries; E78.00 Pure hypercholesterolemia, unspecified; I25.5 Ischemic cardiomyopathy; F17.210 Nicotine dependence, cigarettes, uncomplicated; Z79.82 Long term (current) use of aspirin; I25.10 Atherosclerotic heart disease of native coronary artery without angina pectoris; Z79.02 Long term (current) use of antithrombotics/antiplatelets; L40.9 Psoriasis, unspecified; Z95.5 Presence of coronary angioplasty implant and graft; Z95.810 Presence of automatic (implantable) cardiac defibrillator; Z79.899 Other long term (current) drug therapy; R73.9 Hyperglycemia, unspecified; I08.0 Rheumatic disorders of both mitral and aortic valves; R94.31 Abnormal electrocardiogram [ECG] [EKG]
CPT/HCPCS: 36415; 70450; 70496; 70498; 80048; 80061; 82962; 83036; 84484; 85025; 85610; 85730; 92610; 93005; 93306; 93880; 94762; 96372; 97161; 97166; 99221; 99285; Q9957; Q9967; A4216; C8929; G0378

== ENCOUNTER → 2025-05-17 | Outpatient (CLI) | payer MEDICARE, SELFPAY ==
[2025-05-17 14:42] LABS: Hematocrit 36.0 % (37-47); Hemoglobin 11.7 g/dL (12.0-15.0); Immature Granulocytes Count 0.080 X10^3/uL (0.0-0.0); Mean Corp Hgb Conc 32.5 g/dL (32-36); Mean Corpuscular Volume 92.3 fL (81-99); Mean Platelet Vol. 9.8 fl (6.2-12.0); NRBC Flagged by Analyzer 0 % (0-5); Platelet Count 271 K/mm3 (150-450); RBC Distribution Width CV 14.0 % (11.6-14.6); RBC Distribution Width SD 46.3 fl (35.1-43.9); Red Blood Count 3.90 M/mm3 (4.2-5.4); White Blood Count 12.7 K/mm3 (4.4-11.0)
[2025-05-17 16:18] LABS: AST(SGOT) 22 U/L (<=31); Alanine Aminotransfer ALT/SGPT 19 U/L (<=34); Albumin, Serum 3.8 g/dL (3.4-4.8); Alkaline Phosphatase 67 U/L (35-104); Anion Gap 11 (5-15); BUN 25 mg/dL (4-19); BUN/Creat Ratio 22.5 RATIO (10-20); Calcium,Total 8.6 mg/dL (7.6-11.0); Carbon Dioxide 25.7 mmol/L (21.0-32.0); Chloride 102 mmol/L (98-108); Globulin 2.3 g/dL (2.2-4.2); Glucose 118 mg/dL (70-99); Potassium 4.0 mmol/L (3.3-5.1); Vitamin B12 682 pg/mL (180-914)
[2025-05-19 14:09] LABS: PROEL- A/G Ratio 1.3 (0.7-1.7); PROEL- Albumin 3.2 g/dL (2.9-4.4); PROEL- Alpha-1 Globulin 0.2 g/dL (0.0-0.4); PROEL- Alpha-2 Globulin 0.7 g/dL (0.4-1.0); PROEL- Beta Globulin 0.8 g/dL (0.7-1.3); PROEL- Gamma Globulin 0.9 g/dL (0.4-1.8); PROEL- Globulin, Total 2.5 g/dL (2.2-3.9); PROEL- TOTAL PROTEIN 5.7 g/dL (6.0-8.5); PROEL-M-Spike Not Observed g/dL (Not Observed)
== END | disposition home or self-care (01) ==
LOC: POLAB3 14:10
PROVIDERS: PCP Family Medicine Geriatric Medicine; Visit Provider Family Medicine Geriatric Medicine
DX: E87.6 Hypokalemia (principal); R53.83 Other fatigue
CPT/HCPCS: 36415; 80053; 82607; 84165; 84443; 85025

== ENCOUNTER → 2025-05-21 | Outpatient (CLI) | payer MEDICARE, SELFPAY ==
--- NOTE | 2025-05-21 08:50 | ADU_ITS ---
Reason For Study Reason For Study: S/P Fem-Fem BPG Right Velocities Left Velocities Ext. Iliac Artery, dist = 256.2 cm./sec. Rt Fem-Lt Fem BPG noted. Common Femoral Artery, mid = 265.2 cm./sec. Rt OB/GYN PHYSICIAN, Pre Anast, 258.5 cm/s. Supf Femoral Artery, prox = 87.9 cm./sec. Prox Anast, 386.9 cm/s. Supf Femoral Artery, mid = 58.9 cm./sec. Prox Graft, 111.7 cm/s. Supf Femoral Artery, dist. = 38.0 cm./sec. Mid Graft, 38.4 cm/s. Profunda Femoral Artery = 42.5 cm./sec. Dist Graft, 50.4 cm/s. Popliteal Artery, mid = 46.8 cm./sec. Dist Anast, 155.3cm/s. Lt OB/GYN PHYSICIAN, Dist to Anast, 100.8 cm/s. SFA appears occluded. Prox Profunda Fem A, 39.2 cm/s. Mid Profunda Fem A, 37.9 cm/s. Dist Profunda Fem A, 18.8 cm/s. Popliteal Artery, mid = 31.1 cm./sec. Post. Tibial Artery, prox = 4.5 cm./sec. Post Tibial Artery, mid = 0.0 cm./sec. Post Tibial Artery, dist. = 0.0 cm./sec. Peroneal Artery, prox = 14.4 cm./sec. Peroneal Artery, mid = 11.9 cm./sec. Peroneal Artery,dist. = 17.9 cm./sec. Ant.Tibial Artery, prox = 17.2 cm./sec. Ant Tibial Artery, mid = 18.8 cm./sec. Ant. Tibial Artery, distal = 8.6 cm./sec. Procedure Exam performed in department. /US Art Duplex Bilat Lower Ext Interpretation Summary Patent right to left femoral-femoral bypass with elevated velocities at proxima l anastomosis, 50-75% stenosis. Right lower extremity vessels patent, no visualized stenosis. 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 Ordering Physician: Tiana Wood Referring Physician: Shahid Raya Chi Performed By: Jelena Kwong RVT
--- NOTE | 2025-05-21 08:50 | ART_ITS ---
Reason For Study Reason For Study: S/P Fem-Fem BPG Procedure A bilateral lower extremity continuous wave Doppler with analog waveform analysis and ankle brachial indexes. Left Segmental Pressures Left brachial= 104mmHg. Left posterior tibial artery = 66mmHg. Left dorsalis pedis artery = 63mmHg. Left digit = 55 mmHg. The left dorsalis pedis waveforms are biphasic. The left posterior tibial artery waveforms are biphasic. Right Segmental Pressures Right brachial= 90mmHg. Right posterior tibial artery = 99mmHg. Right dorsalis pedis artery = 58mmHg. Right digit = 56 mmHg. The right dorsalis pedis waveforms are biphasic. The right posterior tibial artery waveforms are biphasic. Indices The right ankle brachial index by the dorsalis pedis is 0.56. The right ankle brachial index by the posterior tibial artery is 0.95. The right digital-brachial index is 0.54. The left ankle brachial index by the dorsalis pedis is 0.61. The left ankle brachial index by the posterior tibial artery is 0.63. The left digital-brachial index is 0.53. VL/Ankle Brachial Index Interpretation Summary Right MARY BETH 0.95, mild arterial insufficiency. Doppler/PVR waveforms of the right ankle mildly diminished at rest. Left MARY BETH 0.61, moderate arterial insufficiency. Doppler/PVR waveforms of the le ft ankle moderately diminished at rest. Ordering Physician: Tiana Wood Referring Physician: Shahid Raya Chi Performed By: ARIK KESSLER RVT
--- OUTSIDE RECORDS SUMMARY | 2025-05-21 09:08 | XMS RPT_ITS | CCD ---
Author Organization [facility] Care Team Providers Care Inverform Machine Operator Name Role Phone MD Tsai Cyril S Unavailable Tyleris, Harumi Y Unavailable Unavailable RAJINDER Marsh, Jada Landers Unavailable Unavailable RAJINDER Marsh, Jdaa Landers Unavailable Unavailable Tyleris, Asaumi Y Unavailable Unavailable RAJINDER Contreras, Shahla Landers Unavailable Unavailabl e Yensho MOLD WORKER, Jessica A Unavailable Unavailab le Yensho MOLD WORKER, Jessica A Unavailable Unavailab le Katerin Rosase M Unavailable Unavailable Garza MOLD WORKER, Karolyn Radha Unavailable Unavaila ble Garza MOLD WORKER, Karolyn Radha Unavailable Unavaila ble RalphKaterine M Unavailable Unavailable Yensho MOLD WORKER, Jessica A Unavailable Unavailab pito Contreras RN, Shahla Landers Unavailable Unavailsilviano Marsh RN, Jada Landers Unavailable Unavailable Dr. Jolanta Grant Primary Care Provider Dr. Yuniel Tsai Attending Provider [phone] Yuniel Tsai Referring Provider [phone] Jolanta Grant Referring Provider Loree Marsh Attending Provider Unavailable Dr. Jolanta Grant Primary Care Provider Unavailable Primary Care Provider UnavailDr. Jolanta Nicole Primary Care Provider Dr. Jolanta Grant Referring Provider [phone] Loree Marsh Attending Provider Unavailable Roof HAND BRAILLE TRANSCRIBER, HAND BRAILLE TRANSCRIBER-C Hira Tiwari Attending Provider Jolanta Grant MD Primary Care Provider Jolanta Grant MD Primary Care Provider Jolanta Grant MD Primary Care Provider Dr. Jolanta Grant MD Primary Care Provider Dr. Dina Camp DO Attending Provider Dr. Dina Camp DO Emergency Provider Jimmy CORDOBA, Dr. Perez Referring Provider Dao CORDOBA, Dr. Maria Attending Provider Dao CORDOBA, Dr. Maria Referring Provider Raven CORDOBA, Dr. Gerardo Attending Provider Stacie PEDERSEN, Dr. Andresw Attending Provider Stacie PEDERSEN, Dr. Andrews Emergency Provider Dao CORDOBA, Dr. Maria Admit Provider Dao CORDOBA, Dr. Maria Other Provider Care Physician, No Primary Primary Care Provider Unavailable Tiana Andrews Attending Provider Elver CORDOBA, Dr. Shahid Foreman Admit Provider Elver CORDOBA, Dr. Shahid Foreman Attending Provider Elver CORDOBA, Dr. Shahid Foreman Referring Provider Tiana Andrews Other Provider Elver CORDOBA, Dr. Shahid Foreman Other Provider Care Physician, No Primary Referring Provider Un available Elver CORDOBA, Dr. Shahid Foreman Primary Care Provider Tiana Andrews Referring Provider Loree Marsh Attending Provider Unavailable Nancy Irizarry Attending Provider Jimmy CORDOBA, Dr. Perez Primary Care Provider Dr. Dina Camp DO Attending Provider Dr. Dina Camp DO Emergency Provider Jimmy CORDOBA, Dr. Perez Referring Provider Dr. Crow Dc MD Attending Provider Dao CORDOBA, Dr. Maria Referring Provider Raven CORDOBA, Dr. Gerardo Attending Provider Dr. Darryl Quinones DO Attending Provider Dr. Darryl Quinones DO Emergency Provider Dao CORDOBA, Dr. Maria Admit Provider Dao CORDOBA, Dr. Maria Other Provider Care Physician, No Primary Primary Care Provider Unavailable Tiana Andrews Attending Provider Elver CORDOBA, Dr. Shahid Foreman Admit Provider Elver CORDOBA, Dr. Shahid Foreman Attending Provider Elver CORDOBA, Dr. Shahid Foreman Referring Provider Tiana Andrews Other Provider Elver CORDOBA, Dr. Shahid Foreman Other Provider Care Physician, No Primary Referring Provider Un available Elver CORDOBA, Dr. Shahid Foreman Primary Care Provider Tiana Andrews Referring Provider Loree Marsh Attending Provider Unavailable Nancy Irizarry Attending Provider [phone] Nancy Irizarry Referring Provider Dr. Yuniel Tsai MD Attending Provider Yuniel Tsai MD Attending Provider Unavailable Dr. Yuniel Tsai MD Attending Provider PA-C Laura Attending Provider PA-Jessy Laura Referring Provider Dr. Jolanta Grant MD Primary Care Provider Dr. Crow Dc MD Attending Provider Dr. Jolanta Grant MD Referring Provider Dr. Yuniel Tsai MD Attending Provider Nancy Irizarry Referring Provider Yuniel Tsai MD Attending Provider Unavailable Laura Kelly PA-C Attending Provider Laura Kelly PA-C Referring Provider Dao, Crow Attending Unavailable Randall, Crow Referring Unavailable Jimmy, Jolanta Primary Care Unavailable Care Physician, No Primary Primary Care Unava ilable Elver, Shahid Chi Attending Unavailable Elver, Shahid Chi Referring Unavailable Elver, Shahid Chi Attending Unavailable Elver, Shahid Chi Primary Care Unavailable Elver, Shahid Chi Referring Unavailable Care Physician, No Primary Primary Care Unava ilable Elver, Shahid Chi Admitting Unavailable Elver, Shahid Chi Attending Unavailable Wood, Tiana Consulting Unavailable Elver, Shahid Chi Referring Unavailable Akin Quiroga Attending Unavailable Elver, Shahid Chi Primary Care Unavailable Akin Quiroga Referring Unavailable Elver, Shahid Chi Primary Care Unavailable Wood, Tiana Referring Unavailable Wood, Tiana Attending Unavailable Akin Quiroga Attending Unavailable Elver, Shahid Chi Primary Care Unavailable Akin Quiroga Referring Unavailable Olvin Styles Admitting Unavailable Dao, Crow Consulting Unavailable Elver, Shahid Chi Primary Care Unavailable Ahmet Otto Attending Unavailable Eduin Acevedo Consulting Unavailable Adeli, Amir Consulting Unavailable Hinduja, Lindsey Consulting Unavailable Cornelius, Tiana Consulting Unavailable Ang, Halle Consulting Unavailable Shani, John Consulting Unavailable Alba, Chyna Consulting Unavailable BittaOmega saab Consulting Unavailable Gilmer Cruz Consulting Unavailable Peter Wilkinson Consulting Unavailable Lissett Perry Consulting Unavailable Lisa Richards Consulting Unavailable Ankit Cooper Consulting Unavailable Maritza Moseley Consulting Unavailable RidHelen sainz Consulting Unavailable Zavandana, Mhd Romulo Consulting UnavailEvert Hall Consulting Unavailable Calzada, Rami Consulting Unavailable Darion Madden Consulting Unavailable Aggie Tinoco Consulting Unavailable Alfredo Yao Consulting Unavailable Olvin Styles Consulting Unavailable Yuniel Tsai Attending Unavailable Elver, Shahid Chi Primary Care Unavailable Jimmy, Jolanta Referring Unavailable Dao, Crow Consulting Unavailable Randall, Crow Admitting Unavailable Care Physician, No Primary Primary Care Unava ilable Wood, Tiana Attending Unavailable Dao, Crow Referring Unavailable Jensen, Olvin Admitting Unavailable Elver, Shahid Chi Primary Care Unavailable Dao, Crow Consulting Unavailable Fam, Ahmet Attending Unavailable Eduin Acevedo Consulting Unavailable Adeli, Amifranklyn Consulting Unavailable Hinduseferino, Lindsey Consulting Unavailable Cornelius, Tiana Consulting Unavailable Ang, Halle Consulting Unavailable John Mcleod Consulting Unavailable Alba, Chyna Consulting Unavailable Omega Holcomb Consulting Unavailable Gilmer Cruz Consulting Unavailable Peter Wilkinson Consulting Unavailable Lissett Perry Consulting Unavailable Lisa Richards Consulting Unavailable Ankit Cooper Consulting Unavailable Maritza Moseley Consulting Unavailable RidHelen sainz Consulting Unavailable Nydia, Luid Romulo Consulting UnavailEvert Hall Consulting Unavailable Zheng, Socrates Consulting Unavailable Darion Madden Consulting Unavailable Aggie Tinoco Consulting Unavailable Alfredo Yao Consulting Unavailable Olvin Styles Consulting Unavailable Fam, Ahmet Consulting Unavailable Care Physician, No Primary Primary Care Unava ilable Elver, Shahid Chi Admitting Unavailable Wood, Tiana Consulting Unavailable Wood, Tiana Attending Unavailable Elver, Shahid Chi Referring Unavailable Elver, Shahid Chi Consulting Unavailable Elver, Shahid Chi Referring Unavailable Elver, Shahid Chi Attending Unavailable Elver, Shahid Chi Primary Care Unavailable Darryl Quinones Attending Unavailable Jimmy, Jolanta Primary Care Unavailable Dina Camp Attending Unavailable Jimmy, Jolanta Primary Care Unavailable Elver, Shahid Chi Primary Care Unavailable Mikhail CHAPA, Nancy Attending Unavailable Mikhail CHAPA, Nancy Referring Unavailable Elver, Shahid Chi Primary Care Unavailable Wood, Tiana Referring Unavailable Wood, Tiana Attending Unavailable Dao, Crow Attending Unavailable Dao, Crow Referring Unavailable Jimmy, Jolanta Primary Care Unavailable Elver, Shahid Chi Primary Care Unavailable Wood, Tiana Referring Unavailable Randall, Crow Attending Unavailable Elver, Shahid Chi Primary Care Unavailable Wood, Tiana Attending Unavailable Elver, Shahid Chi Referring Unavailable Care Physician, No Primary Primary Care Unava ilable Randall, Crow Attending Unavailable Dao, Crow Admitting Unavailable Randall, Crow Referring Unavailable Elver, Shahid Chi Primary Care Unavailable Mikhail HAND BRAILLE TRANSCRIBER, Nancy Attending Unavailable Jimmy, Jolanta Referring Unavailable Elver, Shahid Chi Primary Care Unavailable Laura Alvarez Attending Unavailable Laura Alvarez Referring Unavailable Care Physician, No Primary Primary Care Unava ilable Care Physician, No Primary Referring Unava ilable Wood, Tiana Attending Unavailable Eulalio, Yuniel Attending Unavailable Elver, Shahid Chi Primary Care Unavailable Elver, Shahid Chi Primary Care Unavailable Eulalio, Gardner Attending Unavailable Elver, Shahid Chi Referring Unavailable Elver, Shahid Chi Primary Care Unavailable Nancy Elizondo NP Attending Unavailable Elver, Shahid Chi Referring Unavailable Dao, Crow Attending Unavailable Jimmy, Jolanta Primary Care Unavailable Jimmy, Jolanta Referring Unavailable Elver, Shahid Chi Primary Care Unavailable Rich Hall Attending Unavailable Elver, Shahid Chi Primary Care Unavailable Dao, Crow Attending Unavailable Randall, Crow Referring Unavailable Akin Carbajal Attending Unavailable Jimmy, Jolanta Primary Care Unavailable Gladys Johnson Attending Unavailable Elver, Shahid Chi Primary Care Unavailable Akin Quiroga Consulting Unavailable Akin Quiroga Referring Unavailable Randall, Crow Attending Unavailable Dao, Crow Consulting Unavailable Randall, Crow Admitting Unavailable Dao, Crow Referring Unavailable Jimmy, Jolanta Primary Care Unavailable Olvin Styles Attending Unavailable Eulalio, Gardner Attending Unavailable Jimmy, Jolanta Referring Unavailable Jimmy, Jolanta Primary Care Unavailable Eulalio, Gardner Attending Unavailable Jimmy, Jolanta Referring Unavailable Jimmy, Jolanta Primary Care Unavailable Eulalio, Gardner Attending Unavailable Jimmy, Jolanta Primary Care Unavailable Allergies Allergy Classification Reported Allergen(s) Allergy Type Date of Onset Reaction(s) Facility (20 sources) NKDA; Translations: [NKDA] drug allergy 3 Pulmonary Medicine [facility] [employer] Work Phone: NEGATED: Highlighted row has been ruled out! (4 sources) Observed No Known Drug Allergies at [facility] No Known Allergies 7 propensity to adverse reactions Pulmonary Medicine [facility] [employer] Phone: Medications Current Medications Medication Drug Class(es) Dates Sig (Normalized) Sig (Original) acetaminophen 500 mg oral tablet (20 sources) Start: 11-20-2024 End: 12-02-2024 take 2 tablets by mouth every eight hours Acetaminophen 500 mg Tablet Active 1000 mg PO EVERY 8 HOURS 0 0 December 02, 2024 12:00am aspirin 81 mg chewable tablet (20 sources) Nonsteroidal Anti-inflammatory Drug Start: 09-27-2016 take 1 tablet by mouth once daily Aspirin 81 MG tablet,chewable Active 81 mg PO DAILY@0800 September 27, 2016 12:00am blood thinner Start: 03-21-2012 take 1 tablet by karina th once daily ASPIRIN 81 MG TABS One tablet by mouth daily ASPIRIN [id number] Carin Milligan Start: 03-21-2012 take 1 tablet by karina th once daily ASPIRIN 81 MG TABS One tablet by mouth daily ASPIRIN [id number] Carin Milligan Start: 03-21-2012 take 1 tablet by karina th once daily ASPIRIN EC 81 MG TBEC One tablet by mouth daily ASPIRIN [id number] Savanah Jade PA-C Comment on above: Take 81 mg by mouth once daily. atorvastatin 80 mg oral tablet (20 sources) HMG-CoA Reductase Inhibitor Start: End: take 1 tablet by mouth at bedtime Atorvastatin 80 mg tablet Active 80 mg PO AT BEDTIME 90 3 January 11, 2025 11:13am cholesterol Start: 12-06-2023 End: 07-02-2024 take 1 tablet by mouth at bedtime Atorvastatin 40 mg tablet Discontinued 40 mg PO AT BEDTIME 90 3 March 16, 2024 8:44am July 02, 2024 12:29pm Start: 12-06-2023 End: 07-02-2024 Start: 06-12-2012 End: 12-06-2023 take 1 tablet by mouth at bedtime Atorvastatin 80 mg tablet Discontinued 80 mg PO AT BEDTIME 90 3 March 13, 2023 10:22am December 06, 2023 11:45am Comment on above: Take 80 mg by mouth once daily. Calcium Carbonate / Simethicone (10 sources) Start: 11-02-2024 Calcium Carbonate-Simethico ne 500-20 mg tablet,chewable Active 1 - 2 {tbl} PO .as directed as needed for reflux November 02, 2024 12:00am citalopram 10 mg oral tablet (1 source) Serotonin Reuptake Inhibitor Start: 03-02-2025 take 1 tablet by mouth once daily Citalopram 10 mg tablet Active 10 mg PO daily March 02, 2025 12:00am furosemide 40 mg oral tablet (20 sources) Loop Diuretic Start: 03-02-2025 Furosemide 40 mg tablet Active 40 mg PO .PRN March 02, 2025 1:23pm dieretic Start: 09-27-2016 End: 11-02-2024 take 1 tablet by mouth every other day Furosemide 40 mg tablet Discontinued 40 mg PO every other day 90 March 16, 2024 8:23am November 02, 2024 1:50pm Start: 09-27-2016 End: 07-12-2017 take 1 tablet by mouth twice daily Furosemide 40 MG tablet Discontinued 40 mg PO TWICE DAILY September 27, 2016 12:00am July 12, 2017 1:21pm Start: 06-01-2013 End: 03-02-2025 take 1 tablet by mouth once daily in the morning Furosemide 40 mg tablet Discontinued 40 mg PO EVERY MORNING 90 March 13, 2023 10:22am April 29, 2023 12:34pm Start: 03-21-2012 End: 12-02-2012 take 1 tablet by mouth once daily LASIX 40 MG TABS One tablet by mouth daily FUROSEMIDE [id number] Nichole Jackson HAND BRAILLE TRANSCRIBER Comment on above: Take 40 mg by mouth twice daily. lisinopril 10 mg oral tablet (20 sources) Angiotensin Converting Enzyme Inhibitor Start: 03-02-2025 take 1 tablet by mouth once Lisinopril 10 mg tablet Active 10 mg PO ONCE 90 March 02, 2025 1:22pm bp Start: 09-27-2016 End: 01-11-2025 take 1 tablet by mouth once daily Lisinopril 20 mg tablet Discontinued 20 mg PO daily 180 3 December 06, 2023 11:45am December 31, 2023 8:42am Start: 09-27-2016 End: 03-02-2025 take 10 mg by mouth twice daily Lisinopril 20 mg table t Discontinued 10 mg PO TWICE A DAY 90 January 11, 2025 11:13am March 02, 2025 1:24pm bp Start: 03-27-2012 End: 12-31-2024 take 1 tablet by mouth twice daily Lisinopril 20 mg tablet Discontinued 20 mg PO TWICE A DAY 180 March 16, 2024 8:23am December 31, 2024 9:40am bp Comment on above: Take 20 mg by mouth twice daily. potassium chloride 10 meq extended release oral capsule (20 sources) Start: 12-31-2024 End: 03-02-2025 Potassium Chloride 10 mEq capsule, extended release Active 10 meq PO .PRN 180 3 March 02, 2025 1:23pm supplement Start: 05-31-2020 End: 12-31-2024 take 2 capsules by mouth once daily Potassium Chloride 10 mEq capsule, extended release Discontinued 20 meq PO DAILY 180 3 October 21, 2023 8:03am December 31, 2024 2:40pm supplement Start: 05-31-2020 End: 07-20-2020 take 1 capsule by mouth once daily Potassium Chloride 10 mEq capsule, extended release Discontinued 10 meq PO DAILY 90 3 July 19, 2020 3:43pm July 20, 2020 2:33pm Start: 05-31-2020 End: 10-21-2023 Start: 07-01-2012 End: 12-02-2012 KLOR-CON M20 20 MEQ CR-TABS one and 1/2 tablets by mouth daily POTASSIUM CHLORIDE RAY CR [id number] Yuniel Tsai MD Start: 07-01-2012 KLOR-CON M20 2 0 MEQ CR-TABS one and 1/2 tablets by mouth daily POTASSIUM CHLORIDE RAY CR [id number] Miles Del Castillo MD Start: 07-01-2012 End: 12-02-2012 KLOR-CON M20 20 MEQ CR-TABS one and 1/2 tablets by mouth daily POTASSIUM CHLORIDE RAY CR [id number] Yuniel Tsai MD Start: 04-10-2012 KLOR-CON M20 C R-TABS One and 1/2 tablet by mouth daily POTASSIUM CHLORIDE RAY CR CR-TABS [id number] Yasmine Lam RN Start: 03-27-2012 End: 06-12-2012 take 1 tablet by mouth once daily KLOR-CON 10 CR-TABS One tablet by mouth daily POTASSIUM CHLORIDE CR-TABS [id number] Miles Del Castillo MD Start: 03-27-2012 End: 06-12-2012 take 1 tablet by mouth once daily KLOR-CON 10 CR-TABS One tablet by mouth daily POTASSIUM CHLORIDE CR-TABS [id number] Miles Del Castillo MD Start: 03-27-2012 take 1 tablet by karina th once daily KLOR-CON 10 CR-TABS One tablet by mouth daily POTASSIUM CHLORIDE CR-TABS [id number] Miles Del Castillo MD Risankizumab-Rzaa (1 source) Start: 03-02-2025 Risankizumab-R zaa (Skyrizi) 150 mg/mL pen injector Active 150 mg SC every 12 weeks March 02, 2025 12:00am (20 sources) Start: 11-02-2024 Start: 11-02-2024 End: 12-02-2024 Start: 07-02-2024 End: 11-02-2024 Start: 12-06-2023 End: 12-31-2024 Completed/Discontinued Medications Medication Drug Class(es) Dates Sig (Normalized) Sig (Original) ALBUTEROL SULFATE (20 sources) beta2-Adrenergic Agonist Start: 10-11-2016 VENTOLIN HFA 108 (90 Base) MCG/ACT AERS ALBUTEROL SULFATE [id number] Karolyn Marvin Start: 10-11-2016 VENTOLIN HFA 1 08 (90 Base) MCG/ACT AERS ALBUTEROL SULFATE [id number] Karolyn Marvin Start: 09-27-2016 End: 01-23-2018 Albuterol Sulfate 1 INHALER inhaler Discontinued 2 NMA INHALATION EVERY 4 HOURS NEEDED as needed for Sob &/Or Wheezing September 27, 2016 12:00am January 23, 2018 11:18am Start: 09-27-2016 End: 01-23-2018 Start: 09-27-2016 End: 01-23-2018 take 1 puff(s) [...] 1/2 tablet 2 X daily AMLODIPINE BESYLATE [id number] Miles Del Castillo MD benzonatate 100 mg oral capsule (20 sources) Non-narcotic Antitussive Start: 09-21-19 17 End: 07-12-19 18 take 1 capsule by mouth three times daily as needed for cough Benzonatate 100 MG capsule Discontinued 100 mg PO 3 TIMES DAILY NEEDED as needed for Cough September 27, 2016 12:00am July 12, 2017 1:21pm Start: 05-12-2014 take 1 capsule by mo [facility] three times daily as needed for cough Benzonatate (TESSALON) 200 mg capsule Indications: Bronchitis Take 200 mg by mouth three times daily as needed for Cough. 40 capsule 0 05/12/2014 Active Comment on above: Take 200 mg by mouth three times daily as needed for Cough. Take 1 capsule by mo ut three times daily as needed. buPROPion hydrochloride 100 mg oral tablet (20 sources) Aminoketone Start: 7 End: 8 take 1 tablet by mouth twice daily Bupropion Hcl 100 MG tablet Discontinued 100 mg PO TWICE A DAY September 27, 2016 12:00am July 12, 2017 1:21pm SMOKING CESSATION Start: 09-25-2016 take 1 tablet by karina twice daily buPROPion SR (WELLBUTRIN SR) 100 mg 12 hr tablet Take 1 tablet by mouth twice daily. For smoking cessation. 60 tablet 2 09/25/2016 Active Comment on above: Take 1 tablet by karina twice daily. For smoking cessation. captopril 50 mg oral tablet (20 sources) Angiotensin Converting Enzyme Inhibitor Start: 2 End: 2 take 1 tablet by mouth three times daily CAPTOPRIL 50 MG TABS One tablet by mouth three times daily CAPTOPRIL [id number] Carin Milligan carvedilol 12.5 mg oral tablet (20 sources) alpha-Adrenergic Marcellus, beta-Adrenergic Marcellus Start: 8 End: 5 take 1 tablet by mouth twice daily Carvedilol (Coreg) 12.5 mg tablet Discontinued 12.5 mg PO TWICE A DAY 180 March 16, 2024 8:23am January 11, 2025 11:13am bp Start: 03-21-2012 End: 08-16-2017 take 1 tablet by mouth twice daily at mealtime Carvedilol 25 MG tablet Discontinued 25 mg PO TWICE DAILY WITH MEALS September 27, 2016 12:00am August 16, 2017 11:48am Start: 03-21-2012 take 1 tablet by karina th twice daily COREG 12.5 MG TABS One tablet by mouth twice daily CARVEDILOL [id number] Nichole Jackson NP Start: 03-21-2012 COREG 25 MG TA BS 1/2 tablet 2 X daily CARVEDILOL [id number] Savanah Jade PA-C Comment on above: Take 25 mg by mouth twice daily with meals. ciprofloxacin 250 mg oral tablet (20 sources) Quinolone Antimicrobial Start: 07-20-19 End: 12-14-19 21 take 1 tablet by mouth twice daily Ciprofloxacin Hcl (Cipro) 250 mg tablet Discontinued 250 mg PO TWICE A DAY 6 July 20, 2020 1:00am December 13, 2020 2:48pm clopidogrel 75 mg oral tablet (20 sources) P2Y12 Platelet Inhibitor Start: 03-27-20 12 End: 10-28-19 take 1 tablet by mouth once daily Clopidogrel 75 mg tablet Discontinued 75 mg PO DAILY 90 October 21, 2023 8:03am October 27, 2024 7:26am Comment on above: Take 75 mg by mouth once daily. COLESTIPOL HCL (20 sources) Bile Acid Sequestrant Start: 03-21-20 12 End: 03-27-20 12 take 1 tablet by mouth twice daily COLESTID 1 GM TABS One tablet by mouth twice daily COLESTIPOL HCL [id number] Miles Del Castillo MD Start: 03-21-2012 take 1 tablet by karina th twice daily COLESTID 1 GM TABS One tablet by mouth twice daily COLESTIPOL HCL [id number] Carin Milligan Start: 03-21-2012 End: 03-27-2012 take 1 tablet by mouth twice daily COLESTID 1 GM TABS One tablet by mouth twice daily COLESTIPOL HCL [id number] Miles Del Castillo MD docusate sodium 100 mg oral capsule (16 sources) Start: 11-20-2024 End: 12-02-2024 take 1 capsule by mouth twice daily as needed for constipation Docusate Sodium 100 mg Capsule Discontinued 100 mg PO TWICE DAILY NEEDED as needed for Constipation 0 0 November 20, 2024 12:00am December 02, 2024 8:22pm docusate sodium 50 mg / sennosides, chcf 8.6 mg oral tablet (14 sources) Start: 12-02-2024 End: 12-30-2024 Sennosides-Docusate Sodium (Stimulant Laxative Plus) 8.6-50 mg Tablet Discontinued 1 {tbl} PO TWICE A DAY 60 30 0 December 02, 2024 12:00am December 30, 2024 3:53pm Start: 12-02-2024 End: 12-30-2024 doxycycline hyclate 100 mg oral capsule (20 sources) Tetracycline-class Drug Start: 09-27-2016 End: 07-12-2017 take 1 capsule by mouth twice daily Doxycycline Hyclate 100 MG capsule Discontinued 100 mg PO TWICE A DAY 20 0 September 27, 2016 12:00am July 12, 2017 1:21pm famotidine 20 mg oral tablet (20 sources) Histamine-2 Receptor Antagonist Start: 11-02-2024 End: 11-13-2024 take 1 tablet by mouth once daily Famotidine 20 mg tablet Discontinued 20 mg PO .qd November 02, 2024 12:00am November 13, 2024 2:31pm reflux On Hold: pt not taking - using tums Start: 10-18-2024 End: 10-22-2024 take 1 tablet by mouth once daily Famotidine (Pepcid) 20 mg tablet Discontinued 20 mg PO DAILY 30 1 October 18, 2024 12:00am October 22, 2024 2:08pm 120 actuat fluticasone propionate 0.11 mg/actuat metered dose inhaler (20 sources) Corticosteroid Start: 07-12-2017 End: 01-06-2018 Fluticasone Propionate (Flovent Hfa) 110 mcg/actuation HFA aerosol inhaler Discontinued 1 NMA INHALATION Q12H July 12, 2017 1:00am January 06, 2018 12:47pm Start: 07-12-2017 End: 01-06-2018 Start: 07-12-2017 End: 01-06-2018 take 1 puff(s) by inhalation every twelve hours Fluticasone Propionate (Flovent Hfa) 110 mcg/actuation HFA aerosol inhaler Discontinued 1 PUFF INHALATION Q12H July 12, 2017 1:00am January 06, 2018 12:47pm Start: 02-01-2017 FLOVENT HFA 11 0 MCG/ACT AERO Take as directed FLUTICASONE PROPIONATE HFA [id number] Yuniel Tsai MD Start: 02-01-2017 FLOVENT HFA 11 0 MCG/ACT AERO Take as directed FLUTICASONE PROPIONATE HFA [id number] Yuniel Tsai MD Start: 10-11-2016 End: 01-23-2017 FLOVENT HFA 220 MCG/ACT AERO One puff two times daily FLUTICASONE PROPIONATE HFA [id number] Karolyn Marvin Start: 10-11-2016 End: 01-23-2017 FLOVENT HFA 220 MCG/ACT AERO One puff two times daily FLUTICASONE PROPIONATE HFA [id number] Aldo Falcon Start: 10-11-2016 FLOVENT HFA 22 0 MCG/ACT AERO One puff two times daily FLUTICASONE PROPIONATE HFA [id number] Karolyn Marvin Start: 09-27-2016 End: 07-12-2017 Fluticasone Propionate 1 INH ALER inhaler Discontinued 1 NMA INHALATION TWICE A DAY September 27, 2016 12:00am July 12, 2017 1:18pm Start: 09-27-2016 End: 07-12-2017 Start: 09-27-2016 End: 07-12-2017 take 1 puff(s) [...] guaiFENesin 600 mg extended release oral tablet (20 sources) Start: 7 End: 8 take 1 [...] on above: Take 2 tablets by mo [facility] twice daily. isosorbide mononitrate 10 mg oral tablet (20 sources) Nitrate Vasodilator Start: 2 End: 3 take 1 tablet by mouth twice daily MONOKET 10 MG TABS One tablet by mouth twice daily ISOSORBIDE MONONITRATE [id number] Yuniel Tsai MD Start: 03-21-2012 [facility] IMDUR 120 MG TO61I-SFO One tablet by mouth daily ISOSORBIDE MONONITRATE [id number] Carin Milligan Start: 03-21-2012 End: 03-27-2012 take 1 tablet by mouth once daily IMDUR 120 MG [id number] One tablet by mouth daily ISOSORBIDE MONONITRATE [id number] Miles Del Castillo MD loratadine 10 mg oral capsule (20 sources) Start: 07-25-2018 End: 03-19-2022 take 1 capsule by mouth once daily Loratadine 10 mg capsule Discontinued 10 mg PO DAILY July 25, 2018 1:00am March 19, 2022 10:31am magnesium citrate 100 mg oral tablet (10 sources) Start: 07-02-2024 End: 11-02-2024 take 1 capsule by mouth once daily Magnesium Citrate 100 mg capsule Discontinued 100 mg PO daily July 02, 2024 1:00am November 02, 2024 1:41pm Magnesium Sulfate (10 sources) Start: 11-02-2024 End: 12-02-2024 Magnesium Sulfate ointment Discontinued 1 NMA TOPICAL 3 TIMES DAILY NEEDED as needed for cramps November 02, 2024 12:00am December 02, 2024 8:22pm Start: 11-02-2024 Magnesium Sulf ate ointment Active 1 NMA TOPICAL 3 TIMES DAILY NEEDED as needed for cramps November 02, 2024 12:00am Start: 11-02-2024 Magnesium Sulf ate ointment Active NMA TOPICAL .2-3 times a day November 02, 2024 12:00am methocarbamol 500 mg oral tablet (10 sources) Muscle Relaxant Start: 12-30-2024 End: 12-31-2024 take 1-2 tablets by mouth every eight hours as needed Methocarbamol 500 mg tablet Discontinued 1000 mg PO Q8H as needed for muscle pain 30 5 0 December 30, 2024 12:00am January 03, 2025 12:00am December 31, 2024 9:24am Take 1-2 tablets by mouth every 8 hours as needed for foot cramp MULTIPLE VITAMIN (20 sources) Start: 03-21-2012 take 1 tablet by mouth once daily MULTIVITAMINS TABS One tablet by mouth daily MULTIPLE VITAMIN [id number] Carin Milligan Start: 03-21-2012 End: 12-30-2014 take 1 tablet by mouth once daily MULTIVITAMINS TABS One tablet by mouth daily MULTIPLE VITAMIN [id number] Yuniel Tsai MD MULTIPLE VITAMIN (6 sources) Start: 03-21-2012 End: 12-30-2014 take 1 tablet by mouth once daily MULTIVITAMINS TABS One tablet by mouth daily MULTIPLE VITAMIN [id number] Yuniel Tsai MD Start: 03-21-2012 take 1 tablet by [facility] once daily MULTIVITAMINS TABS One tablet by mouth daily MULTIPLE VITAMIN [id number] Carin Milligan nitroglycerin 0.4 mg sublingual tablet (20 sources) Nitrate Vasodilator Start: 08-16-2017 End: 10-16-2022 Nitroglycerin 0.4 mg tablet, sublingual Discontinued 0.4 mg SL every 5 to 15 minutes as needed for chest pain 15 09August 27, 2019 3:08pm October 16, 2022 10:46am until response; do not exceed 3 doses per event Start: 08-16-2017 End: 10-16-2022 Start: 08-16-2017 End: 10-16-2022 Nitroglycerin Discontinued 0 .4 MG SL every 5 to 15 minutes August 27, 2019 3:08pm October 16, 2022 10:46am until response; do not exceed 3 doses per event Start: 03-21-2012 End: 10-11-2016 NITROSTAT 0.4 MG SUBL 1 tabl et under tongue every 5 min up to 3 X NITROGLYCERIN [id number] Nikita Hogan MD oxyCODONE hydrochloride 5 mg oral tablet (20 sources) Opioid Agonist Start: 11-12-2024 End: 12-30-2024 take 1 tablet by mouth every eight hours as needed for pain Oxycodone 5 mg Tablet Discontinued 5 mg PO EVERY 8 HOURS NEEDED as needed for Pain Score 4-10 15 5 0 November 20, 2024 December 02, 2024 8:22pm Postoperative pain Other acute postprocedural pain Start: 11-12-2024 End: 11-20-2024 take 1 tablet by mouth every six hours as needed for pain Oxycodone 5 mg tablet Discontinued 5 mg PO EVERY 6 HOURS as needed for pain 20 5 0 November 12, 2024 November 20, 2024 4:34pm Intermittent claudication Peripheral vascular disease, unspecified Start: 11-12-2024 End: 12-30-2024 take 1 tablet by mouth every four hours as needed for pain Oxycodone 5 mg Tablet Discontinued 5 mg PO EVERY 4 HOURS NEEDED as needed for Pain Score 4-10 42 7 0 December 02, 2024 December 30, 2024 4:19pm pravastatin sodium 80 mg oral tablet (20 sources) HMG-CoA Reductase Inhibitor Start: 03-27-2012 End: 06-12-2012 take 1 tablet by mouth once daily at bedtime PRAVASTATIN SODIUM 80 MG TABS One tablet by mouth daily at bedtime PRAVASTATIN SODIUM [id number] Miles Del Castillo MD predniSONE 20 mg oral tablet (20 sources) Start: 09-27-2016 End: 07-12-2017 take 3 tablets by mouth once daily Prednisone 20 MG tablet Discontinued 60 mg PO DAILY 15 September 27, 2016 12:00am July 12, 2017 1:21pm Start: 09-27-2016 End: 07-12-2017 take 60 mg by mouth once daily Prednisone Discontinued 60 MG PO DAILY September 27, 2016 12:00am July 12, 2017 1:21pm simethicone 80 mg chewable tablet (14 sources) Start: 12-02-2024 End: 12-30-2024 take 1 tablet by mouth at bedtime Simethicone 80 mg Tablet,Chewable Discontinued 80 mg PO AFTER MEALS AND AT BEDTIME 120 30 0 December 02, 2024 12:00am December 30, 2024 3:53pm Start: 12-02-2024 End: 12-30-2024 simvastatin 80 mg oral tablet (20 sources) HMG-CoA Reductase Inhibitor Start: 03-21-2012 End: 03-27-2012 take 1 tablet by mouth at bedtime ZOCOR 80 MG TABS One tablet by mouth at bedtime. SIMVASTATIN [id number] Miles Del Castillo MD triamcinolone acetonide 1 mg/ml topical cream (20 sources) Corticosteroid Start: 09-12-2021 End: 12-06-2023 Triamcinolone Acetonide 0.1 % cream Discontinued 1 NMA TOPICAL TWICE A DAY as needed September 12, 2021 12:00am December 06, 2023 11:15am Vitamin D3-Vitamin K2 125 mcg (5,000 unit)-100 mcg capsule (10 sources) Start: 12-06-2023 End: 12-31-2024 take 1 capsule by mouth once daily Vitamin D3-Vitamin K2 125 mcg (5,000 unit)-100 mcg capsule Discontinued 1 NMA PO DAILY December 06, 2023 12:00am December 31, 2024 9:24am supplement Start: 12-06-2023 take 1 capsule by [facility] once daily Vitamin D3-Vitamin K2 125 mcg (5,000 unit)-100 mcg capsule Active 1 NMA PO DAILY December 06, 2023 12:00am supplement Start: 12-06-2023 take 1 capsule by mo ut once daily Vitamin D3-Vitamin K2 125 mcg (5,000 unit)-100 mcg capsule Active 1 NMA PO DAILY December 06, 2023 12:00am Problems Active Problems Problem Classification Problem Date Documented Date Episodic/Chronic Cardiac dysrhythmias (20 sources) Sinus node dysfunction; Translations: [Sick sinus syndrome] Onset: 07-09-2024 Chronic Chronic obstructive pulmonary disease and bronchiectasis (20 sources) Bronchiectasis; Translations: [Bronchiectasis, uncomplicated] Onset: 11-01-2016 Resolved: 01-31-2017 11-01-2016 Chronic Complication of device; implant or graft (20 sources) Arteriosclerosis of coronary artery bypass graft; Translations: [Atherosclerosis of coronary artery bypass graft(s) without angina pectoris] 06-06-2020 Chronic Conduction disorders (20 sources) Atrioventricular block; Translations: [Cardiac defibrillator in situ] Onset: 03-21-2012 03-21-2012 Chronic Comment on above: Implanted @ [facility] 02/22; Gen change 08/04/2020 @ [facility] per Dr. Juan Cosme. Congestive heart failure; nonhypertensive (20 sources) Chronic systolic heart failure; Translations: [Chronic systolic (congestive) heart failure] Onset: 12-08-2024 Chronic Coronary atherosclerosis and other heart disease (20 sources) Coronary arteriosclerosis; Translations: [Atherosclerotic heart disease of [place] coronary artery without angina pectoris] Onset: 07-25-1996 Resolved: 01-31-2017 01-31-2017 Chronic Disorders of lipid metabolism (20 sources) Hyperlipidemia; Translations: [Hyperlipidemia, unspecified] Onset: 03-21-2012 03-21-2012 Chronic Essential hypertension (20 sources) Hypertensive disorder; Translations: [Essential hypertension] Onset: 03-21-2012 03-21-2012 Chronic Heart valve disorders (20 sources) Nonrheumatic mitral (valve) prolapse; Translations: [Nonrheumatic aortic (valve) stenosis] Onset: 03-21-2012 01-31-2017 Chronic Other circulatory disease (11 sources) History of arterial bypass of lower limb artery; Translations: [Presence of other vascular implants and grafts] 12-18-2024 Chronic Other circulatory disease (1 source) Presence of other vascular implants and grafts; Translations: [Presence of other vascular implants and grafts] Onset: 01-29-2025 Chronic Other circulatory disease (20 sources) History of bradycardia; Translations: [Personal history of other diseases of the circulatory system] 08-16-2017 Episodic Other circulatory disease (20 sources) Abnormal radial pulse; Translations: [Other specified symptoms and signs involving the circulatory and respiratory systems] 09-12-2021 Episodic Other circulatory disease (2 sources) Other specified symptoms and signs involving the circulatory and respiratory systems; Translations: [Other symptoms involving cardiovascular system] Episodic Other circulatory disease (9 sources) Low blood pressure; Translations: [Hypotension, unspecified] 12-31-2024 Episodic Other connective tissue disease (17 sources) Pain in lower limb; Translations: [Pain in leg, unspecified] 10-26-2024 Episodic Other connective tissue disease (2 sources) Facial weakness; Translations: [Facial weakness] Onset: 05-04-2025 Episodic Other connective tissue disease (1 source) Pain in left foot; Translations: [Pain in left foot] Onset: 04-28-2025 Episodic Other inflammatory condition of skin (1 source) Psoriasis vulgaris; Translations: [Psoriasis vulgaris] Onset: 02-15-2025 Chronic Other nervous system disorders (1 source) Other hereditary and idiopathic neuropathies; Translations: [Other hereditary and idiopathic neuropathies] Onset: 04-28-2025 Chronic Peripheral and visceral atherosclerosis (20 sources) Intermittent claudication; Translations: [Peripheral vascular disease, unspecified] Onset: 11-07-2024 Chronic Comment on above: CTA images reviewed, left common iliac occlusion, left common femoral moderate stenosis, left SFA occlusion with popliteal reconstitution right common/external iliac stenosis with calcification, right common femoral calcified severe stenosis, right SFA severe diffuse stenosis Residual codes; unclassified (20 sources) History of syncope; Translations: [Personal history of other specified conditions] 08-16-2017 Episodic Residual codes; unclassified (20 sources) Finding of systemic arterial pressure; Translations: [Other general symptoms and signs] 10-04-2021 Episodic Residual codes; unclassified (17 sources) Tobacco use and exposure - finding; Translations: [Tobacco use] 10-26-2024 Episodic Residual codes; unclassified (20 sources) Tobacco user; Translations: [Tobacco use] 11-20-2024 Episodic Screening or history of mental health and substance abuse (11 sources) Tobacco dependence syndrome; Translations: [Nicotine dependence, unspecified, uncomplicated] Onset: 01-23-2017 01-23-2017 Chronic Spondylosis; intervertebral disc disorders; other back problems (1 source) Radiculopathy, lumbar region; Translations: [Radiculopathy, lumbar region] Onset: 03-09-2025 Episodic Substance-related disorders (20 sources) Nicotine dependence; Translations: [Nicotine dependence, unspecified, uncomplicated] 08-04-2020 Chronic Unclassified (12 sources) Implantation of automatic cardiac defibrillator ; Translations: [Presence of automatic (implantable) cardiac defibrillator] Onset: 09-29-2012 09-29-2012 Unclassified (3 sources) Long-term drug therapy; Translations: [Other fpc (current) drug therapy] Onset: 03-21-2012 03-21-2012 Unclassified (7 sources) Testing at 0900 and 1000. Unclassified (7 sources) TCU Transition Care Management appointment. Past or Other Problems Problem Classification Problem Date Documented Da te Episodic/Chronic Coronary atherosclerosis and other heart disease (20 sources) Coronary angioplasty status; Translations: [History of myocardial infarction] Onset: 04-28-1997 03-21-2012 Episodic Fluid and electrolyte disorders (20 sources) Hypokalemia; Translations: [Hypokalemia] Onset: 03-21-2012 03-21-2012 Episodic Malaise and fatigue (20 sources) Asthenia; Translations: [Other malaise] Onset: 12-08-2024 11-20-2024 Episodic Other aftercare (12 sources) Other fpc (current) drug therapy; Translations: [Other fpc (current) drug therapy] Onset: 03-21-2012 03-21-2012 Episodic Other aftercare (2 sources) Encounter for surgical aftercare following surgery on the circulatory system; Translations: [Encounter for surgical aftercare following surgery on the circulatory system] Onset: 12-08-2024 Episodic Other circulatory disease (12 sources) History of myocardial infarction; Translations: [Old myocardial infarction] Onset: 03-21-2012 03-21-2012 Episodic Other circulatory disease (1 source) Hypotension, unspecified; Translations: [Hypotension, unspecified] Onset: 12-31-2024 Episodic Other connective tissue disease (1 source) Pain in left leg; Translations: [Pain in left leg] Onset: 10-22-2024 Episodic Other nervous system disorders (1 source) Other acute postprocedural pain; Translations: [Other acute postprocedural pain] Onset: 12-01-2024 Episodic Other nutritional; endocrine; and metabolic disorders (20 sources) Body mass index (BMI) 25.0-25.9, adult; Translations: [Body mass index (BMI) 25.0-25.9, adult] Onset: 07-06-2015 Resolved: 06-28-2016 06-28-2016 Episodic Residual codes; unclassified (1 source) Tobacco use; Translations: [Tobacco use] Onset: 12-08-2024 Episodic Syncope (15 sources) Syncope and collapse; Translations: [Syncope and collapse] Onset: 03-21-2012 03-21-2012 Episodic Unclassified (20 sources) Family history of ischemic heart disease and other diseases of the circulatory system; Translations: [Family history of ischemic heart disease and other diseases of the circulatory system] Resolved: 01-31-2017 01-31-2017 Episodic Results Test Name Value Interpretation Reference Range Facility Bedside Glucoseon 05-04-2025 FINGERSTICK GLU 165 mg/dL High 74-106 [facility] Comment on above: Result Comment: CHARLES BERNARD OF PATIENT CARE PER NURSING PROTOCOL Performed By: #### L 501.080 ####[facility] [address] [place], [place], [address] Brain/Head without Contrasto n 05-04-2025 Brain/Head without Contrast Normal [facility] Consultation - Surgicalon Consultation - Surgical Normal [facility] Discharge Instructionon 04-24 Discharge Instruction Normal [facility] Echo Complete W/ Contraston 05-04-2025 Echo Complete W/ Contrast Normal [facility] Hemoglobin A1con 05-04-2025 HbA1c (Bld) [Mass fraction] 6.2 % High <=5.6 [facility] Comment on above: Order Comment: NURSE CALLED ASKING FOR THIS TO BE DRAWN TODAY, PER [facility] Result Comment: Norm al < 5.7 % Prediabetic 5.7 - 6.4 % Diabetic >or= 6.5 % Please note range changes. Performed By: #### L 501.9985 ####[facility] [address] [place], [address] Lipid Profileon 05-04-2025 CHOL:HDL 4.60 Normal [facility] Comment on above: Order Comment: Comme nts: NPO at [place] prior to lipid panel Performed By: #### L 500.3439 ####[facility] [address] [place], [address] Cholesterol [Mass/Vol] 159 mg/dL Normal <=200 [facility] Comment on above: Order Comment: Comme nts: NPO at [place] prior to lipid panel Result Comment: Chol esterol level, Desirable <200 mg/dLBorderline high cholesterol 200-239 mg/dLHigh cholesterol >=240 mg/dLRecommendations of the NCEP Adult Treatment Panel for thefollowing risk-cutoff thresholds for the [place] Americanpulation. Performed By: #### L 500.8300 ####[facility] [address] [place], [address] Cholesterol in HDL [Mass/Vol] 35 mg/dL Low [facility] Comment on above: Order Comment: Comme nts: NPO at [place] prior to lipid panel Result Comment: Ruth onal Cholesterol Education Program (NCEP) guidelines:<40 mg/dL: Low HDL-cholesterol (major risk factor for CHD)>= 60 mg/dL: High HDL-cholesterol (negative risk factor forCHD)HDL-cholesterol is affected by a number of factors, e.g.smoking, exercise, hormones, sex and age. Performed By: #### L 500.4100 ####[facility] [address] [place], [address] Cholesterol in LDL [Mass/Vol] 86 mg/dL Normal [facility] Comment on above: Order Comment: Comme nts: NPO at [place] prior to lipid panel Result Comment: Bord wcrnmm=992-617 mg/dL Higher Ffgb=123 mg/dL or greaterSampson Equation 2020 for LDL-C Performed By: #### L 500.4100 ####[facility] [address] [place], [address] Cholesterol in VLDL [Mass/Vol] 46 mg/dL High 5-40 [facility] Comment on above: Order Comment: Comme nts: NPO at [place] prior to lipid panel Performed By: #### L 500.4100 ####[facility] [address] [place], [address] Triglyceride [Mass/Vol] 231 mg/dL High [facility] Comment on above: Order Comment: Comme nts: NPO at [place] prior to lipid panel Result Comment: The drugs N-Acetylcysteine and Metamizole may falselydepress this assay.Normal range: <150 mg/dLBorderline High: 150-199 mg/dLHigh: 200-499 mg/dLVery High: >500 mg/dL Performed By: #### L 500.4100 ####[facility] [address] [place], [address] 12 Lead EKGon 05-03-2025 12 Lead EKG Normal [facility] Basic Metabolic Profile (BMP )on 05-03-2025 BUN/CRE 16.4 RATIO Normal 10-20 [facility] Comment on above: Performed By: #### L 501.4021, L100.0100, L300.4310, L300.3900, L500.2500 ####[facility] [address] [place], [address] Calcium [Mass/Vol] 9.5 mg/dL Normal 7.6-11.[address] [facility] Comment on above: Performed By: #### L 501.4021, L100.0100, L300.4310, L300.3900, L500.2500 ####[facility] [address] [place], [address] Chloride [Moles/Vol] 103 mmol/L Normal 98-108 [facility] Comment on above: Performed By: #### L 501.4021, L100.0100, L300.4310, L300.3900, L500.2500 ####[facility] [address] [place], [address] CO2 [Moles/Vol] 24.3 mmol/L Normal 21.0-32.0 [facility] Comment on above: Performed By: #### L 501.4021, L100.0100, L300.4310, L300.3900, L500.2500 ####[facility] [address] [place], [address] Creatinine [Mass/Vol] 1.08 mg/dL Normal 0.70-1.20 [facility] Comment on above: Performed By: #### L [id number], L100.0100, L300.4310, L300.3900, L500.2500 ####[facility] [address] [place], [address] ECRCL 40.46 ml/min Low 50-250 [facility] Comment on above: Performed By: #### L 501.4021, L100.0100, L300.4310, L300.3900, L500.2500 ####[facility] [address] [place], [address] GAP 13 Normal 5-15 [facility] Comment on above: Performed By: #### L 501.4021, L100.0100, L300.4310, L300.3900, L500.2500 ####[facility] [address] [place], [address] GFR/1.73 sq M.predicted among non-blacks MDRD (S/P/Bld) [Vol rate/Area] 53 mL/min/{1.73_m2} Low >60 [facility] Comment on above: Result Comment: mL/m in/1.73m2 CKD-EPI Creatinine Equation (2020) Performed By: #### L 501.4021, L100.0100, L300.4310, L300.3900, L500.2500 ####[facility] [address] [place], [address] Glucose [Mass/Vol] 156 mg/dL High 70-[address] [facility] Comment on above: Performed By: #### L 501.4021, L100.0100, L300.4310, L300.3900, L500.2500 ####[facility] [address] [place], [address] Potassium [Moles/Vol] 3.9 mmol/L Normal 3.3-5.1 [facility] Comment on above: Performed By: #### L 501.4021, L100.0100, L300.4310, L300.3900, L500.2500 ####[facility] [address] [place], [address] Sodium [Moles/Vol] 140 mmol/L Normal 133-[address] [facility] Comment on above: Performed By: #### L 501.4021, L100.0100, L300.4310, L300.3900, L500.2500 ####[facility] [address] [place], [address] Urea nitrogen [Mass/Vol] 18 mg/dL Normal 4-19 [facility] Comment on above: Performed By: #### L 501.4021, L100.0100, L300.4310, L300.3900, L500.2500 ####[facility] [address] [place], [address] Bedside Glucoseon 05-03-2025 FINGERSTICK GLU 142 mg/dL High 74-106 [facility] Comment on above: Result Comment: CHARLES BERNARD OF PATIENT CARE PER NURSING PROTOCOL Performed By: #### L 501.080 ####[facility] [address] [place], [address] CBC W/Diff, Automatedon 11-1 0-2024 Absolute Lymph 2.22 X10 3/uL Normal 0.83-4.51 [facility] Comment on above: Performed By: #### L 501.4021, L100.0100, L300.4310, L300.3900, L500.2500 ####[facility] [address] [place], [address] Absolute Neut 5.2 X10 3/uL Normal 2.0-7.7 [facility] Comment on above: Performed By: #### L 501.4021, L100.0100, L300.4310, L300.3900, L500.2500 ####[facility] [address] [place], [address] Basophils/100 WBC (Bld) 0.4 % Normal 0-1 [facility] Comment on above: Performed By: #### L 501.4021, L100.0100, L300.4310, L300.3900, L500.2500 ####[facility] [address] [place], [address] Eosinophils/100 WBC (Bld) 2.8 % Normal 0-5 [facility] Comment on above: Performed By: #### L 501.4021, L100.0100, L300.4310, L300.3900, L500.2500 ####[facility] [address] [place], [address] Erythrocyte distribution width (RBC) [Ratio] 12.7 % Normal 11.6-14.6 [facility] Comment on above: Performed By: #### L 501.4021, L100.0100, L300.4310, L300.3900, L500.2500 ####[facility] [address] [place], [address] Hematocrit (Bld) [Volume fraction] 37.2 % Normal 37-47 [facility] Comment on above: Performed By: #### L 501.4021, L100.0100, L300.4310, L300.3900, L500.2500 ####[facility] [address] [place], [address] Hemoglobin (Bld) [Mass/Vol] 12.8 g/dL Normal 12.0-15.0 [facility] Comment on above: Performed By: #### L 501.4021, L100.0100, L300.4310, L300.3900, L500.2500 ####[facility] [address] [place], [address] IG% 0.200 Normal 0.0-0.9 [facility] Comment on above: Result Comment: IG% - Immature Granulocytes (promyelocytes, myelocytes andmetamyelocytes) > 1% indicates that a LEFT SHIFT is Present. Performed By: #### L 501.4021, L100.0100, L300.4310, L300.3900, L500.2500 ####[facility] [address] [place], [address] Lymphocytes/100 WBC (Bld) 27.5 % Normal 19-41 [facility] Comment on above: Performed By: #### L 501.4021, L100.0100, L300.4310, L300.3900, L500.2500 ####[facility] [address] [place], [address] MCH (RBC) [Entitic mass] 31.0 pg Normal 27.0-32.0 [facility] Comment on above: Performed By: #### L 501.4021, L100.0100, L300.4310, L300.3900, L500.2500 ####[facility] [address] [place], [address] MCHC (RBC) [Mass/Vol] 34.4 g/dL Normal 32-36 [facility] Comment on above: Performed By: #### L 501.4021, L100.0100, L300.4310, L300.3900, L500.2500 ####[facility] [address] [place], [address] MCV (RBC) [Entitic vol] 90.1 fL Normal 81-99 [facility] Comment on above: Performed By: #### L 501.4021, L100.0100, L300.4310, L300.3900, L500.2500 ####[facility] [address] [place], [address] Monocytes/100 WBC (Bld) 4.8 % Normal 0-10 [facility] Comment on above: Performed By: #### L 501.4021, L100.0100, L300.4310, L300.3900, L500.2500 ####[facility] [address] [place], [address] Neutrophils/100 WBC (Bld) 64.3 % Normal 47-70 [facility] Comment on above: Performed By: #### L 501.4021, L100.0100, L300.4310, L300.3900, L500.2500 ####[facility] [address] [place], [address] Nucleated RBC (Bld) [#/Vol] 0 10*3/uL Normal 0-5 [facility] Comment on above: Performed By: #### L 501.4021, L100.0100, L300.4310, L300.3900, L500.2500 ####[facility] [address] [place], [address] Platelet mean volume (Bld) [Entitic vol] 9.5 fL Normal 6.2-12.0 [facility] Comment on above: Performed By: #### L 501.4021, L100.0100, L300.4310, L300.3900, L500.2500 ####[facility] [address] [place], [address] Platelets (Bld) [#/Vol] 268 10*3/uL Normal 150-450 [facility] Comment on above: Performed By: #### L 501.4021, L100.0100, L300.4310, L300.3900, L500.2500 ####[facility] [address] [place], [address] RBC (Bld) [#/Vol] 4.13 10*6/uL Low 4.2-5.4 [facility] Comment on above: Performed By: #### L 501.4021, L100.0100, L300.4310, L300.3900, L500.2500 ####[facility] [address] [place], [address] RDW SD 41.9 fl Normal 35.1-43.9 [facility] Comment on above: Performed By: #### L 501.4021, L100.0100, L300.4310, L300.3900, L500.2500 ####[facility] [address] [place], [address] WBC (Bld) [#/Vol] 8.1 10*3/uL Normal 4.4-11.[address] [facility] Comment on above: Performed By: #### L 501.4021, L100.0100, L300.4310, L300.3900, L500.2500 ####[facility] [address] [place], [address] Carotid Duplex Ultrasoundon 05-03-2025 Carotid Duplex Ultrasound Normal [facility] Emergency Department Summary on 05-03-2025 Emergency Department Summary Normal [facility] H AND P Exam - Hospitaliston 05-03-2025 H&P Exam - Hospitalist Normal [facility] L501.4021on 05-03-2025 Trop T High Sen 16 ng/L High <=14 [facility] Comment on above: Performed By: #### L 501.4021, L100.0100, L300.4310, L300.3900, L500.2500 ####[facility] [address] [place], [address] Partial Thromboplast Timeon 05-03-2025 aPTT Coag (Bld) [Time] 23.0 s Low 24.1-36.2 [facility] Comment on above: Performed By: #### L 501.4021, L100.0100, L300.4310, L300.3900, L500.2500 ####[facility] [address] [place], [address] Prothrombin Time w/INRon INR Coag (PPP) [Relative time] 1.0 {INR} Normal [facility] Comment on above: Performed By: #### L 501.4021, L100.0100, L300.4310, L300.3900, L500.2500 ####[facility] [address] [place], [address] PT Coag (PPP) [Time] 13.7 s Normal 11.7-14.9 [facility] Comment on above: Performed By: #### L 501.4021, L100.0100, L300.4310, L300.3900, L500.2500 ####[facility] [address] [place], [address] STROKE Brain/Head without Co nton 05-03-2025 STROKE Brain/Head without Cont Normal [facility] STROKE CTA Head AND Neck W/C onon 05-03-2025 STROKE CTA Head AND Neck W/Con Normal [facility] Troponin T HS 2 HRon 025 Trop T High Sen 16 ng/L High <=14 [facility] Comment on above: Performed By: #### L 499.0042 ####[facility] [address] [place], [address] Troponin T HS 4 HRon 025 Trop T High Sen 15 ng/L High <=14 [facility] Comment on above: Performed By: #### L 499.0043 ####[facility] [address] [place], [address] L/S Spine Min 4 Viewson L/S Spine Min 4 Views Normal [facility] NCS and/or EMG Patienton NCS and/or EMG Patient Normal [facility] Cardiology Visit Reporton Cardiology Visit Report Normal [facility] Quantiferon TB-Gold+on 02-11 QFT MITOGEN ANA > 10.00 Normal . [facility] Comment on above: Performed By: #### L 3400.8000 ####[facility] [address] [place], [address] QFT NIL VALUE 0.08 IU/mL Normal . [facility] Comment on above: Performed By: #### L 3400.8000 ####[facility] [address] [place], [address] QFT TB GOLD+ Comment Normal . [facility] Comment on above: Result Comment: Yung tiFERON-TB Gold Plus is a qualitative indirect test forM tuberculosis infection (including disease) and isintended for use in conjunction with risk assessment,radiography, and other medical and diagnostic evaluations.The QuantiFERON-TB Gold Plus result is determined bysubtracting the Nil value from either TB antigen (Ag)value. The Mitogen tube serves as a control for the test. Performed By: #### L 3400.8000 ####[facility] [address] [place], [address] QFT TB POS CRIT Negative Normal Negative [facility] Comment on above: Result Comment: No r esponse to M tuberculosis antigens detected.Infection with M tuberculosis is unlikely, but high riskindividuals should be considered for additional testing(ATS/IDSA/CDC Clinical Practice Guidelines, 2017). Thereference range is an Antigen minus Nil result of <0.35IU/mL.The specimen received for QuantiFERON testing was incubatedby the ordering institution. Specific procedures outlinedin our Directory of Services and in the package insert forthe QuantiFERON Gold (In Tube) test must be followed toenable for proper stimulation of cells for the productionof interferon gamma. Chemiluminescence immunoassaymethodologyPerformed at: [facility] [place] [id number] Director: Javan Dumont PhD, Phone: [phone] Performed By: #### L 3400.8000 ####[facility] [address] [place], [address] QFT TB1+ AG ANA 0.10 IU/mL Normal . [facility] Comment on above: Performed By: #### L 3400.8000 ####[facility] [address] [facility] [place], [address] QFT TB2+ AG ANA 0.12 IU/mL Normal . [facility] Comment on above: Performed By: #### L 3400.8000 ####[facility] [address] [place], [address] Qualitative QuantiFERON-TB g old in tube testOrdered By: Laura Kelly on 02-09-2025 M. tuberculosis tuberculin stim IFN-g Ql (Bld) 0.10 IU/mL . [facility] CTA Abd w/Runoff W/WO Contra ston 01-21-2025 CTA Abd w/Runoff W/WO Contrast Normal [facility] PT D/C Summary (1)on 025 PT D/C Summary (1) Normal [facility] Absolute lymphocyte countOrd ered By: Nancy Elizondo on 12-31-2024 Lymphocytes Auto (Unsp spec) [#/Vol] 1.75 10*3/uL 0.83-4.51 [facility] Absolute neutrophil countOrd ered By: Nancy Elizondo on 12-31-2024 Neutrophils (Bld) [#/Vol] 3.7 10*3/uL 2.0-7.7 [facility] Anion gap in Serum or Plasma Ordered By: Nancy Elizondo on 12-31-2024 Anion gap [Moles/Vol] 12 mmol/L 5-15 [facility] Automated lymphocyte count a s percentage of total leukocytesOrdered By: Nancy Elizondo on 12-31-2024 Lymphocytes/100 WBC Auto (Unsp spec) 29.6 % 19-41 [facility] BUN/creatinine ratioOrdered By: Nancy Elizondo on 12-31-2024 Urea nitrogen/Creatinine [Mass ratio] 25.6 mg/mg High - [facility] Basic Metabolic Profile (BMP )on 12-31-2024 BUN/CRE 25.6 RATIO High 04-12 [facility] Comment on above: Performed By: #### L 100.0100, L500.2500 ####[facility] [address] [place], [address] Calcium [Mass/Vol] 9.1 mg/dL Normal 7.6-11.[address] [facility] Comment on above: Performed By: #### L 100.0100, L500.2500 ####[facility] [address] [place], [address] Chloride [Moles/Vol] 104 mmol/L Normal 98-108 [facility] Comment on above: Performed By: #### L 100.0100, L500.2500 ####[facility] [address] [place], [address] CO2 [Moles/Vol] 22.0 mmol/L Normal 21.0-32.0 [facility] Comment on above: Performed By: #### L 100.0100, L500.2500 ####[facility] [address] [place], [address] Creatinine [Mass/Vol] 1.07 mg/dL Normal 0.70-1.20 [facility] Comment on above: Performed By: #### L 100.0100, L500.2500 ####[facility] [address] [place], [address] GAP 12 Normal 5-15 [facility] Comment on above: Performed By: #### L 100.0100, L500.2500 ####[facility] [address] [place], [address] GFR/1.73 sq M.predicted among non-blacks MDRD (S/P/Bld) [Vol rate/Area] 53 mL/min/{1.73_m2} Low >60 [facility] Comment on above: Result Comment: mL/m in/1.73m2 CKD-EPI Creatinine Equation (2020) Performed By: #### L 100.0100, L500.2500 ####[facility] [address] [place], [address] Glucose [Mass/Vol] 114 mg/dL High 70-[address] [facility] Comment on above: Performed By: #### L 100.0100, L500.2500 ####[facility] [address] [place], [address] Potassium [Moles/Vol] 5.2 mmol/L High 3.3-5.1 [facility] Comment on above: Performed By: #### L 100.0100, L500.2500 ####[facility] [address] [place], [address] Sodium [Moles/Vol] 137 mmol/L Normal 133-[address] [facility] Comment on above: Performed By: #### L 100.0100, L500.2500 ####[facility] [address] [place], [address] Urea nitrogen [Mass/Vol] 27 mg/dL High 4-19 [facility] Comment on above: Performed By: #### L 100.0100, L500.2500 ####[facility] [address] [place], [address] Basophil percentageOrdered B y: Nancy Elizondo on 12-31-2024 Basophils/100 WBC (Bld) 0.5 % 0-1 [facility] CBC W/Diff, Automatedon 12-22-2024 Absolute Lymph 1.75 X10 3/uL Normal 0.83-4.51 [facility] Comment on above: Performed By: #### L 100.0100, L500.2500 ####[facility] [address] [place], [address] Absolute Neut 3.7 X10 3/uL Normal 2.0-7.7 [facility] Comment on above: Performed By: #### L 100.0100, L500.2500 ####[facility] [address] [place], [address] Basophils/100 WBC (Bld) 0.5 % Normal 0-1 [facility] Comment on above: Performed By: #### L 100.0100, L500.2500 ####[facility] [address] [place], [address] Eosinophils/100 WBC (Bld) 1.9 % Normal 0-5 [facility] Comment on above: Performed By: #### L 100.0100, L500.2500 ####[facility] [address] [place], [address] Erythrocyte distribution width (RBC) [Ratio] 14.1 % Normal 11.6-14.6 [facility] Comment on above: Performed By: #### L 100.0100, L500.2500 ####[facility] [address] [place], [address] Hematocrit (Bld) [Volume fraction] 33.1 % Low 37-47 [facility] Comment on above: Performed By: #### L 100.0100, L500.2500 ####[facility] [address] [place], [address] Hemoglobin (Bld) [Mass/Vol] 10.7 g/dL Low 12.0-15.0 [facility] Comment on above: Performed By: #### L 100.0100, L500.2500 ####[facility] [address] [place], [address] IG% 0.300 Normal 0.0-0.9 [facility] Comment on above: Result Comment: IG% - Immature Granulocytes (promyelocytes, myelocytes andmetamyelocytes) > 1% indicates that a LEFT SHIFT is Present. Performed By: #### L 100.0100, L500.2500 ####[facility] [address] [place], [address] Lymphocytes/100 WBC (Bld) 29.6 % Normal 19-41 [facility] Comment on above: Performed By: #### L 100.0100, L500.2500 ####[facility] [address] [place], [address] MCH (RBC) [Entitic mass] 31.4 pg Normal 27.0-32.0 [facility] Comment on above: Performed By: #### L 100.0100, L500.2500 ####[facility] [address] [place], [address] MCHC (RBC) [Mass/Vol] 32.3 g/dL Normal 32-36 [facility] Comment on above: Performed By: #### L 100.0100, L500.2500 ####[facility] [address] [place], [address] MCV (RBC) [Entitic vol] 97.1 fL Normal 81-99 [facility] Comment on above: Performed By: #### L 100.0100, L500.2500 ####[facility] [address] [place], [address] Monocytes/100 WBC (Bld) 5.9 % Normal 0-10 [facility] Comment on above: Performed By: #### L 100.0100, L500.2500 ####[facility] [address] [place], [address] Neutrophils/100 WBC (Bld) 61.8 % Normal 47-70 [facility] Comment on above: Performed By: #### L 100.0100, L500.2500 ####[facility] [address] [place], [address] Nucleated RBC (Bld) [#/Vol] 0 10*3/uL Normal 0-5 [facility] Comment on above: Performed By: #### L 100.0100, L500.2500 ####[facility] [address] [place], [address] Platelet mean volume (Bld) [Entitic vol] 9.3 fL Normal 6.2-12.0 [facility] Comment on above: Performed By: #### L 100.0100, L500.2500 ####[facility] [address] [place], [address] Platelets (Bld) [#/Vol] 225 10*3/uL Normal 150-450 [facility] Comment on above: Performed By: #### L 100.0100, L500.2500 ####[facility] [address] [place], [address] RBC (Bld) [#/Vol] 3.41 10*6/uL Low 4.2-5.4 [facility] Comment on above: Performed By: #### L 100.0100, L500.2500 ####[facility] [address] [place], [address] RDW SD 50.4 fl High 35.1-43.9 [facility] Comment on above: Performed By: #### L 100.0100, L500.2500 ####[facility] [address] [place], [address] WBC (Bld) [#/Vol] 5.9 10*3/uL Normal 4.4-11.[address] [facility] Comment on above: Performed By: #### L 100.0100, L500.2500 ####[facility] [address] [place], [address] Carbon dioxide, total [Moles /volume] in Central venous bloodOrdered By: Nancy Elizondo on 12-31-2024 CO2 [Moles/Vol] 22.0 mmol/L 21.0-32.0 [facility] Cardiology Visit Reporton Cardiology Visit Report Normal [facility] Chloride assayOrdered By: Bora Elizondo on 12-31-2024 Chloride [Moles/Vol] 104 mmol/L 98-108 [facility] Eosinophil percentageOrdered By: Nancy Eilzondo on 12-31-2024 Eosinophils/100 WBC (Bld) 1.9 % 0-5 [facility] Erythrocyte distribution wid th ratioOrdered By: Nancy Elizondo on 12-31-2024 Erythrocyte distribution width (RBC) [Ratio] 14.1 % 11.6-14.6 [facility] Erythrocyte distribution wid th standard deviationOrdered By: Nancy Elizondo on 12-31-2024 Erythrocyte distribution width (RBC) [Ratio] 50.4 fl High 35.1-43.9 [facility] Glomerular filtration rate ( GFR) estimation/1.73 sq m using serum, plasma, or whole bOrdered By: Nancy Elizondo on 12-31-2024 GFR/1.73 sq M.predicted among non-blacks MDRD (S/P/Bld) [Vol rate/Area] 53 mL/min/{1.73_m2} Low >60 [facility] Comment on above: mL/min/1.73m2 CKD-EP I Creatinine Equation (2020) Hematocrit Auto (Bld) [Volum e fraction]Ordered By: Nancy Elizondo on 12-31-2024 Hematocrit (Bld) [Volume fraction] 33.1 % Low 37-47 [facility] Hemoglobin measurementOrdere d By: Nancy Elizondo on 12-31-2024 Hemoglobin (Bld) [Mass/Vol] 10.7 g/dL Low 12.0-15.0 [facility] Immature granulocytes/100 WB C Auto (Bld)Ordered By: Nancy Elizondo on 12-31-2024 Immature granulocytes/100 WBC (Bld) 0.300 % 0.0-0.9 [facility] Comment on above: IG% - Immature Granu locytes (promyelocytes, myelocytes and metamyelocytes) > 1% indicates that a LEFT SHIFT is Present. MCV (mean corpuscular volume ) determinationOrdered By: Nancy Elizondo on 12-31-2024 MCV (RBC) [Entitic vol] 97.1 fL 81-99 [facility] Mean corpuscular hemoglobin (MCH) determinationOrdered By: Nancy Elizondo on 12-31-2024 MCH (RBC) [Entitic mass] 31.4 pg 27.0-32.0 [facility] Mean corpuscular hemoglobin concentration (MCHC) determinationOrdered By: Nancy Elizondo on 12-31-2024 MCHC (RBC) [Mass/Vol] 32.3 g/dL 32-36 [facility] Mean platelet volume determi nationOrdered By: Nancy Elizondo on 12-31-2024 Platelet mean volume (Bld) [Entitic vol] 9.3 fL 6.2-12.0 [facility] Monocyte percentageOrdered B y: Nancy Elizondo on 12-31-2024 Monocytes/100 WBC (Bld) 5.9 % 0-10 [facility] Neutrophil percentageOrdered By: Nancy Elizondo on 12-31-2024 Neutrophils/100 WBC (Bld) 61.8 % 47-70 [facility] Nucleated red blood cell per centageOrdered By: Nancy Elizondo on 12-31-2024 Nucleated RBC/100 WBC (Bld) [Ratio] 0 % 0-5 [facility] Pacemaker Checkon 12-31-2024 Pacemaker Check Normal [facility] Platelet countOrdered By: Bora Elizondo on 12-31-2024 Platelets (Bld) [#/Vol] 225 10*3/uL 150-450 [facility] Potassium measurement (mass/ volume)Ordered By: Nancy Elizondo on 12-31-2024 Potassium (Unsp spec) [Mass/Vol] 5.2 mmol/L High 3.3-5.1 [facility] RBC Auto (Bld) [#/Vol]Ordere d By: Nancy Elizondo on 12-31-2024 RBC (Bld) [#/Vol] 3.41 10*6/uL Low 4.2-5.4 [facility] Serum creatinine measurement (mass/volume)Ordered By: Nancy Elizondo on 12-31-2024 Creatinine [Mass/Vol] 1.07 mg/dL 0.70-1.20 [facility] Serum glucose measurement (m ass/volume)Ordered By: Nancy Elizondo on 12-31-2024 Glucose [Mass/Vol] 114 mg/dL High 70-[address] [facility] Serum or plasma calcium patricia urement (mass/volume)Ordered By: Nancy Elizondo on 12-31-2024 Calcium [Mass/Vol] 9.1 mg/dL 7.6-11.[address] [facility] Serum or plasma urea nitroge n measurement (mass/volume)Ordered By: Nancy Elizondo on 12-31-2024 Urea nitrogen [Mass/Vol] 27 mg/dL High - [facility] Sodium levelOrdered By: Mercedes Elizondo on 12-31-2024 Sodium [Moles/Vol] 137 mmol/L 133-[address] [facility] White blood cell (WBC) count Ordered By: Nancy Elizondo on 12-31-2024 WBC (Bld) [#/Vol] 5.9 10*3/uL 4.4-11.[address] [facility] Surgery Visit Reporton 12-30 Surgery Visit Report Normal [facility] Basic Metabolic Profile (BMP )on 12-25-2024 BUN Normal - [facility] Comment on above: Result Comment: Canc elled via OM: Order cancelled - Patient discharged Performed By: #### L 100.0100, L500.2500 ####[facility] [address] [place], [address] BUN/CRE Normal - [facility] Comment on above: Result Comment: Canc elled via OM: Order cancelled - Patient discharged Performed By: #### L 100.0100, L500.2500 ####[facility] [address] [place], [address] Calcium Normal 7.6-11.0 [facility] Comment on above: Result Comment: Canc elled via OM: Order cancelled - Patient discharged Performed By: #### L 100.0100, L500.2500 ####[facility] [address] [place], [address] CL Normal 98-108 [facility] Comment on above: Result Comment: Canc elled via OM: Order cancelled - Patient discharged Performed By: #### L 100.0100, L500.2500 ####[facility] [address] [place], [address] CO2 Normal 21.0-32.0 [facility] Comment on above: Result Comment: Canc elled via OM: Order cancelled - Patient discharged Performed By: #### L 100.0100, L500.2500 ####[facility] [address] [place], [address] CREAT,SERUM Normal 0.70-1.20 [facility] Comment on above: Result Comment: Canc elled via OM: Order cancelled - Patient discharged Performed By: #### L 100.0100, L500.2500 ####[facility] [address] [place], [address] eGFR Normal >60 [facility] Comment on above: Result Comment: Canc elled via OM: Order cancelled - Patient discharged Performed By: #### L 100.0100, L500.2500 ####[facility] [address] [place], [address] GAP Normal 5-15 [facility] Comment on above: Result Comment: Canc elled via OM: Order cancelled - Patient discharged Performed By: #### L 100.0100, L500.2500 ####[facility] [address] [place], [address] GLU Normal 70-99 [facility] Comment on above: Result Comment: Canc elled via OM: Order cancelled - Patient discharged Performed By: #### L 100.0100, L500.2500 ####[facility] [address] [place], [address] Potassium Normal 3.3-5.1 [facility] Comment on above: Result Comment: Canc elled via OM: Order cancelled - Patient discharged Performed By: #### L 100.0100, L500.2500 ####[facility] [address] [place], [address] Basic Metabolic Profile (BMP) Normal 133-145 [facility] Comment on above: Result Comment: Canc elled via OM: Order cancelled - Patient discharged Performed By: #### L 100.0100, L500.2500 ####[facility] [address] [place], [address] CBC W/Diff, Automatedon 07-0 -2024 Absolute Neut Normal 2.0-7.7 [facility] Comment on above: Result Comment: Canc elled via OM: Order cancelled - Patient discharged Performed By: #### L 100.0100, L500.2500 ####[facility] [address] [place], [address] HCT Normal 37-47 [facility] Comment on above: Result Comment: Canc elled via OM: Order cancelled - Patient discharged Performed By: #### L 100.0100, L500.2500 ####[facility] [address] [place], [address] HGB Normal 12.0-15.0 [facility] Comment on above: Result Comment: Canc elled via OM: Order cancelled - Patient discharged Performed By: #### L 100.0100, L500.2500 ####[facility] [address] [place], [address] MCH Normal 27.0-32.0 [facility] Comment on above: Result Comment: Canc elled via OM: Order cancelled - Patient discharged Performed By: #### L 100.0100, L500.2500 ####[facility] [address] [place], [address] MCHC Normal 32-36 [facility] Comment on above: Result Comment: Canc elled via OM: Order cancelled - Patient discharged Performed By: #### L 100.0100, L500.2500 ####[facility] [address] [place], [address] MCV Normal 81-99 [facility] Comment on above: Result Comment: Canc elled via OM: Order cancelled - Patient discharged Performed By: #### L 100.0100, L500.2500 ####[facility] [address] [place], [address] NEUT% Normal 47-70 [facility] Comment on above: Result Comment: Canc elled via OM: Order cancelled - Patient discharged Performed By: #### L 100.0100, L500.2500 ####[facility] [address] [place], [address] PLT Normal 150-450 [facility] Comment on above: Result Comment: Canc elled via OM: Order cancelled - Patient discharged Performed By: #### L 100.0100, L500.2500 ####[facility] [address] [place], [address] RBC Normal 4.2-5.4 [facility] Comment on above: Result Comment: Canc elled via OM: Order cancelled - Patient discharged Performed By: #### L 100.0100, L500.2500 ####[facility] [address] [place], [address] RDW CV Normal 11.6-14.6 [facility] Comment on above: Result Comment: Canc elled via OM: Order cancelled - Patient discharged Performed By: #### L 100.0100, L500.2500 ####[facility] [address] [place], [address] RDW SD Normal 35.1-43.9 [facility] Comment on above: Result Comment: Canc elled via OM: Order cancelled - Patient discharged Performed By: #### L 100.0100, L500.2500 ####[facility] [address] [place], [address] WBC Normal 4.4-11.0 [facility] Comment on above: Result Comment: Canc elled via OM: Order cancelled - Patient discharged Performed By: #### L 100.0100, L500.2500 ####[facility] [address] [place], [address] Basic Metabolic Profile (BMP )on 12-18-2024 BUN Normal 4-19 [facility] Comment on above: Result Comment: Canc elled via OM: Order cancelled - Patient discharged Performed By: #### L 100.0100, L500.2500 ####[facility] [address] [place], [address] BUN/CRE Normal 10-20 [facility] Comment on above: Result Comment: Canc elled via OM: Order cancelled - Patient discharged Performed By: #### L 100.0100, L500.2500 ####[facility] [address] [place], [address] Calcium Normal 7.6-11.0 [facility] Comment on above: Result Comment: Canc elled via OM: Order cancelled - Patient discharged Performed By: #### L 100.0100, L500.2500 ####[facility] [address] [place], [address] CL Normal 98-108 [facility] Comment on above: Result Comment: Canc elled via OM: Order cancelled - Patient discharged Performed By: #### L 100.0100, L500.2500 ####[facility] [address] [place], [address] CO2 Normal 21.0-32.0 [facility] Comment on above: Result Comment: Canc elled via OM: Order cancelled - Patient discharged Performed By: #### L 100.0100, L500.2500 ####[facility] [address] [place], [address] CREAT,SERUM Normal 0.70-1.20 [facility] Comment on above: Result Comment: Canc elled via OM: Order cancelled - Patient discharged Performed By: #### L 100.0100, L500.2500 ####[facility] [address] [place], [address] eGFR Normal >60 [facility] Comment on above: Result Comment: Canc elled via OM: Order cancelled - Patient discharged Performed By: #### L 100.0100, L500.2500 ####[facility] [address] [place], [address] GAP Normal 5-15 [facility] Comment on above: Result Comment: Canc elled via OM: Order cancelled - Patient discharged Performed By: #### L 100.0100, L500.2500 ####[facility] [address] [place], [address] GLU Normal 70-99 [facility] Comment on above: Result Comment: Canc elled via OM: Order cancelled - Patient discharged Performed By: #### L 100.0100, L500.2500 ####[facility] [address] [place], [address] Potassium Normal 3.3-5.1 [facility] Comment on above: Result Comment: Canc elled via OM: Order cancelled - Patient discharged Performed By: #### L 100.0100, L500.2500 ####[facility] [address] [place], [address] Basic Metabolic Profile (BMP) Normal 133-145 [facility] Comment on above: Result Comment: Canc elled via OM: Order cancelled - Patient discharged Performed By: #### L 100.0100, L500.2500 ####[facility] [address] [place], [address] CBC W/Diff, Automatedon 06-2 Absolute Neut Normal 2.0-7.7 [facility] Comment on above: Result Comment: Canc elled via OM: Order cancelled - Patient discharged Performed By: #### L 100.0100, L500.2500 ####[facility] [address] [place], [address] HCT Normal 37-47 [facility] Comment on above: Result Comment: Canc elled via OM: Order cancelled - Patient discharged Performed By: #### L 100.0100, L500.2500 ####[facility] [address] [place], [address] HGB Normal 12.0-15.0 [facility] Comment on above: Result Comment: Canc elled via OM: Order cancelled - Patient discharged Performed By: #### L 100.0100, L500.2500 ####[facility] [address] [place], [address] MCH Normal 27.0-32.0 [facility] Comment on above: Result Comment: Canc elled via OM: Order cancelled - Patient discharged Performed By: #### L 100.0100, L500.2500 ####[facility] [address] [place], [address] MCHC Normal 32-36 [facility] Comment on above: Result Comment: Canc elled via OM: Order cancelled - Patient discharged Performed By: #### L 100.0100, L500.2500 ####[facility] [address] [place], [address] MCV Normal 81-99 [facility] Comment on above: Result Comment: Canc elled via OM: Order cancelled - Patient discharged Performed By: #### L 100.0100, L500.2500 ####[facility] [address] [place], [address] NEUT% Normal 47-70 [facility] Comment on above: Result Comment: Canc elled via OM: Order cancelled - Patient discharged Performed By: #### L 100.0100, L500.2500 ####[facility] [address] [place], [address] PLT Normal 150-450 [facility] Comment on above: Result Comment: Canc elled via OM: Order cancelled - Patient discharged Performed By: #### L 100.0100, L500.2500 ####[facility] [address] [place], [address] RBC Normal 4.2-5.4 [facility] Comment on above: Result Comment: Canc elled via OM: Order cancelled - Patient discharged Performed By: #### L 100.0100, L500.2500 ####[facility] [address] [place], [address] RDW CV Normal 11.6-14.6 [facility] Comment on above: Result Comment: Canc elled via OM: Order cancelled - Patient discharged Performed By: #### L 100.0100, L500.2500 ####[facility] [address] [place], [address] RDW SD Normal 35.1-43.9 [facility] Comment on above: Result Comment: Canc elled via OM: Order cancelled - Patient discharged Performed By: #### L 100.0100, L500.2500 ####[facility] [address] [place], [address] WBC Normal 4.4-11.0 [facility] Comment on above: Result Comment: Canc elled via OM: Order cancelled - Patient discharged Performed By: #### L 100.0100, L500.2500 ####[facility] [address] [place], [place], [id number] Absolute lymphocyte countOrd ered By: Shahid Raya on 12-15-2024 Lymphocytes Auto (Unsp spec) [#/Vol] 2.34 10*3/uL 0.83-4.51 [facility] Absolute neutrophil countOrd ered By: Shahid Raya on 12-15-2024 Neutrophils (Bld) [#/Vol] 5.1 10*3/uL 2.0-7.7 [facility] Anion gap in Serum or Plasma Ordered By: Shahid Raya on 12-15-2024 Anion gap [Moles/Vol] 12 mmol/L 5- [facility] Automated lymphocyte count a s percentage of total leukocytesOrdered By: Shahid Raya on 12-15-2024 Lymphocytes/100 WBC Auto (Unsp spec) 29.1 % - [facility] BUN/creatinine ratioOrdered By: Shahid Raya on 12-15-2024 Urea nitrogen/Creatinine [Mass ratio] 17.3 mg/mg 10-20 [facility] Basophil percentageOrdered B y: Shahid Raya on 12-15-2024 Basophils/100 WBC (Bld) 0.2 % 0-1 [facility] Bilirubin, totalOrdered By: Shahid Raya on 12-15-2024 Bilirubin [Mass/Vol] 0.41 mg/dL 0.00-1.30 [facility] CBC W/Diff, Automatedon 11-23 Absolute Lymph 2.34 X10 3/uL Normal 0.83-4.51 [facility] Comment on above: Performed By: #### L 500.4100, L501.9520, L506.1001, L100.0100, L500.4050 ####[facility] [address] [place], [address] Absolute Neut 5.1 X10 3/uL Normal 2.0-7.7 [facility] Comment on above: Performed By: #### L 500.4100, L501.9520, L506.1001, L100.0100, L500.4050 ####[facility] [address] [place], [address] Basophils/100 WBC (Bld) 0.2 % Normal 0-1 [facility] Comment on above: Performed By: #### L 500.4100, L501.9520, L506.1001, L100.0100, L500.4050 ####[facility] [address] [place], [address] Eosinophils/100 WBC (Bld) 1.1 % Normal 0-5 [facility] Comment on above: Performed By: #### L 500.4100, L501.9520, L506.1001, L100.0100, L500.4050 ####[facility] [address] [place], [address] Erythrocyte distribution width (RBC) [Ratio] 14.6 % Normal 11.6-14.6 [facility] Comment on above: Performed By: #### L 500.4100, L501.9520, L506.1001, L100.0100, L500.4050 ####[facility] [address] [place], [address] Hematocrit (Bld) [Volume fraction] 31.3 % Low 37-47 [facility] Comment on above: Performed By: #### L 500.4100, L501.9520, L506.1001, L100.0100, L500.4050 ####[facility] [address] [place], [address] Hemoglobin (Bld) [Mass/Vol] 10.5 g/dL Low 12.0-15.0 [facility] Comment on above: Performed By: #### L 500.4100, L501.9520, L506.1001, L100.0100, L500.4050 ####[facility] [address] [place], [address] IG% 0.200 Normal 0.0-0.9 [facility] Comment on above: Result Comment: IG% - Immature Granulocytes (promyelocytes, myelocytes andmetamyelocytes) > 1% indicates that a LEFT SHIFT is Present. Performed By: #### L 500.4100, L501.9520, L506.1001, L100.0100, L500.4050 ####[facility] [address] [place], [address] Lymphocytes/100 WBC (Bld) 29.1 % Normal 19-41 [facility] Comment on above: Performed By: #### L 500.4100, L501.9520, L506.1001, L100.0100, L500.4050 ####[facility] [address] [place], [address] MCH (RBC) [Entitic mass] 31.4 pg Normal 27.0-32.0 [facility] Comment on above: Performed By: #### L 500.4100, L501.9520, L506.1001, L100.0100, L500.4050 ####[facility] [address] [place], [address] MCHC (RBC) [Mass/Vol] 33.5 g/dL Normal 32-36 [facility] Comment on above: Performed By: #### L 500.4100, L501.9520, L506.1001, L100.0100, L500.4050 ####[facility] [address] [place], [address] MCV (RBC) [Entitic vol] 93.7 fL Normal 81-99 [facility] Comment on above: Performed By: #### L 500.4100, L501.9520, L506.1001, L100.0100, L500.4050 ####[facility] [address] [place], [address] Monocytes/100 WBC (Bld) 6.6 % Normal 0-10 [facility] Comment on above: Performed By: #### L 500.4100, L501.9520, L506.1001, L100.0100, L500.4050 ####[facility] [address] [place], [address] Neutrophils/100 WBC (Bld) 62.8 % Normal 47-70 [facility] Comment on above: Performed By: #### L 500.4100, L501.9520, L506.1001, L100.0100, L500.4050 ####[facility] [address] [place], [address] Nucleated RBC (Bld) [#/Vol] 0 10*3/uL Normal 0-5 [facility] Comment on above: Performed By: #### L 500.4100, L501.9520, L506.1001, L100.0100, L500.4050 ####[facility] [address] [place], [address] Platelet mean volume (Bld) [Entitic vol] 9.6 fL Normal 6.2-12.0 [facility] Comment on above: Performed By: #### L 500.4100, L501.9520, L506.1001, L100.0100, L500.4050 ####[facility] [address] [place], [address] Platelets (Bld) [#/Vol] 288 10*3/uL Normal 150-450 [facility] Comment on above: Performed By: #### L 500.4100, L501.9520, L506.1001, L100.0100, L500.4050 ####[facility] [address] [place], [address] RBC (Bld) [#/Vol] 3.34 10*6/uL Low 4.2-5.4 [facility] Comment on above: Performed By: #### L 500.4100, L501.9520, L506.1001, L100.0100, L500.4050 ####[facility] [address] [place], [address] RDW SD 50.4 fl High 35.1-43.9 [facility] Comment on above: Performed By: #### L 500.4100, L501.9520, L506.1001, L100.0100, L500.4050 ####[facility] [address] [place], [address] WBC (Bld) [#/Vol] 8.1 10*3/uL Normal 4.4-11.[address] [facility] Comment on above: Performed By: #### L 500.4100, L501.9520, L506.1001, L100.0100, L500.4050 ####[facility] [address] [place], [address] Calculated very low density lipoprotein (VLDL) cholesterol measurementOrdered By: Shahid Raya on 12-15-2024 Calculated very low density lipoprotein (VLDL) cholesterol measurement 37 mg/dL 5-40 [facility] Carbon dioxide, total [Moles /volume] in Central venous bloodOrdered By: Shahid Raya on 12-15-2024 CO2 [Moles/Vol] 24.3 mmol/L 21.0-32.0 [facility] Chloride assayOrdered By: Juan José Raya on 12-15-2024 Chloride [Moles/Vol] 101 mmol/L 98-108 [facility] Comprehensive Metabolic Prof ilon 12-15-2024 Albumin [Mass/Vol] 4.1 g/dL Normal 3.4-4.[address] [facility] Comment on above: Performed By: #### L 500.4100, L501.9520, L506.1001, L100.0100, L500.4050 ####[facility] [address] [place], [address] Albumin/Globulin [Mass ratio] 1.5 {ratio} Normal 0.9-2.4 [facility] Comment on above: Performed By: #### L 500.4100, L501.9520, L506.1001, L100.0100, L500.4050 ####[facility] [address] [place], [address] ALK PHOS 81 U/L Normal 35-104 [facility] Comment on above: Performed By: #### L 500.4100, L501.9520, L506.1001, L100.0100, L500.4050 ####[facility] [address] [place], [address] ALT [Catalytic activity/Vol] 14 U/L Normal <=34 [facility] Comment on above: Performed By: #### L 500.4100, L501.9520, L506.1001, L100.0100, L500.4050 ####[facility] [address] [place], [address] AST [Catalytic activity/Vol] 22 U/L Normal <=31 [facility] Comment on above: Performed By: #### L 500.4100, L501.9520, L506.1001, L100.0100, L500.4050 ####[facility] [address] [place], [address] Bilirubin [Mass/Vol] 0.41 mg/dL Normal 0.00-1.30 [facility] Comment on above: Performed By: #### L 500.4100, L501.9520, L506.1001, L100.0100, L500.4050 ####[facility] [address] [place], [address] BUN/CRE 17.3 RATIO Normal 10-20 [facility] Comment on above: Performed By: #### L 500.4100, L501.9520, L506.1001, L100.0100, L500.4050 ####[facility] [address] [place], [address] Calcium [Mass/Vol] 9.4 mg/dL Normal 7.6-11.[address] [facility] Comment on above: Performed By: #### L 500.4100, L501.9520, L506.1001, L100.0100, L500.4050 ####[facility] [address] [place], [address] Chloride [Moles/Vol] 101 mmol/L Normal 98-108 [facility] Comment on above: Performed By: #### L 500.4100, L501.9520, L506.1001, L100.0100, L500.4050 ####[facility] [address] [place], [address] CO2 [Moles/Vol] 24.3 mmol/L Normal 21.0-32.0 [facility] Comment on above: Performed By: #### L 500.4100, L501.9520, L506.1001, L100.0100, L500.4050 ####[facility] [address] [place], [address] Creatinine [Mass/Vol] 1.05 mg/dL Normal 0.70-1.20 [facility] Comment on above: Performed By: #### L 500.4100, L501.9520, L506.1001, L100.0100, L500.4050 ####[facility] [address] [place], [address] GAP 12 Normal 5-15 [facility] Comment on above: Performed By: #### L 500.4100, L501.9520, L506.1001, L100.0100, L500.4050 ####[facility] [address] [place], [address] GFR/1.73 sq M.predicted among non-blacks MDRD (S/P/Bld) [Vol rate/Area] 54 mL/min/{1.73_m2} Low >60 [facility] Comment on above: Result Comment: mL/m in/1.73m2 CKD-EPI Creatinine Equation (2020) Performed By: #### L 500.4100, L501.9520, L506.1001, L100.0100, L500.4050 ####[facility] [address] [place], [address] Globulin (S) [Mass/Vol] 2.7 g/dL Normal 2.2-4.2 [facility] Comment on above: Performed By: #### L 500.4100, L501.9520, L506.1001, L100.0100, L500.4050 ####[facility] [address] [place], [address] Glucose [Mass/Vol] 107 mg/dL High 70-[address] [facility] Comment on above: Performed By: #### L 500.4100, L501.9520, L506.1001, L100.0100, L500.4050 ####[facility] [address] [place], [address] Potassium [Moles/Vol] 3.6 mmol/L Normal 3.3-5.1 [facility] Comment on above: Performed By: #### L 500.4100, L501.9520, L506.1001, L100.0100, L500.4050 ####[facility] [address] [place], [address] Sodium [Moles/Vol] 138 mmol/L Normal 133-[address] [facility] Comment on above: Performed By: #### L 500.4100, L501.9520, L506.1001, L100.0100, L500.4050 ####[facility] [address] [place], [address] T PROT 6.8 g/dL Normal 5.9-8.4 [facility] Comment on above: Performed By: #### L 500.4100, L501.9520, L506.1001, L100.0100, L500.4050 ####[facility] [address] [place], [address] Urea nitrogen [Mass/Vol] 18 mg/dL Normal 4-19 [facility] Comment on above: Performed By: #### L 500.4100, L501.9520, L506.1001, L100.0100, L500.4050 ####[facility] [address] [place], [address] Eosinophil percentageOrdered By: Shahid Raya on 12-15-2024 Eosinophils/100 WBC (Bld) 1.1 % 0-5 [facility] Erythrocyte distribution wid th ratioOrdered By: Shahid Raya on 12-15-2024 Erythrocyte distribution width (RBC) [Ratio] 14.6 % 11.6-14.6 [facility] Erythrocyte distribution wid th standard deviationOrdered By: Shahid Raya on 12-15-2024 Erythrocyte distribution width (RBC) [Ratio] 50.4 fl High 35.1-43.9 [facility] Glomerular filtration rate ( GFR) estimation/1.73 sq m using serum, plasma, or whole bOrdered By: Shahid Raya on 12-15-2024 GFR/1.73 sq M.predicted among non-blacks MDRD (S/P/Bld) [Vol rate/Area] 54 mL/min/{1.73_m2} Low >60 [facility] Comment on above: mL/min/1.73m2 CKD-EP I Creatinine Equation (2020) Hematocrit Auto (Bld) [Volum e fraction]Ordered By: Shahid Raya on 12-15-2024 Hematocrit (Bld) [Volume fraction] 31.3 % Low 37-47 [facility] Hemoglobin measurementOrdere d By: Shahid Raya on 12-15-2024 Hemoglobin (Bld) [Mass/Vol] 10.5 g/dL Low 12.0-15.0 [facility] Immature granulocytes/100 WB C Auto (Bld)Ordered By: Shahid Raya on 12-15-2024 Immature granulocytes/100 WBC (Bld) 0.200 % 0.0-0.9 [facility] Comment on above: IG% - Immature Granu locytes (promyelocytes, myelocytes and metamyelocytes) > 1% indicates that a LEFT SHIFT is Present. LDL calc ser/plasOrdered By: Shahid Raya on 12-15-2024 Cholesterol in LDL [Mass/Vol] 61 mg/dL [facility] Comment on above: Aimltvftvh=396-373 m g/dL & Higher Hpkr=218 mg/dL or greater Laboratory - Chemistry and C hemistry - challengeOrdered By: Shahid Raya on 12-15-2024 AST [Catalytic activity/Vol] 22 U/L <32 [facility] Lipid Profileon 12-15-2024 CHOL:HDL 3.80 Normal [facility] Comment on above: Performed By: #### L 500.4100, L501.9520, L506.1001, L100.0100, L500.4050 ####[facility] [address] [place], [address] Cholesterol [Mass/Vol] 133 mg/dL Normal <=200 [facility] Comment on above: Result Comment: Chol esterol level, Desirable <200 mg/dLBorderline high cholesterol 200-239 mg/dLHigh cholesterol >=240 mg/dLRecommendations of the NCEP Adult Treatment Panel for thefollowing risk-cutoff thresholds for the [place] American[place]. Performed By: #### L 500.4100, L501.9520, L506.1001, L100.0100, L500.4050 ####[facility] [address] [place], [address] Cholesterol in HDL [Mass/Vol] 35 mg/dL Low [facility] Comment on above: Result Comment: Ruth onal Cholesterol Education Program (NCEP) guidelines:<40 mg/dL: Low HDL-cholesterol (major risk factor for CHD)>= 60 mg/dL: High HDL-cholesterol (negative risk factor forCHD)HDL-cholesterol is affected by a number of factors, e.g.smoking, exercise, hormones, sex and age. Performed By: #### L 500.4100, L501.9520, L506.1001, L100.0100, L500.4050 ####[facility] [address] [place], [address] Cholesterol in LDL [Mass/Vol] 61 mg/dL Normal [facility] Comment on above: Result Comment: Bord ltyyeq=167-594 mg/dL Higher Pcqz=940 mg/dL or greater Performed By: #### L 500.4100, L501.9520, L506.1001, L100.0100, L500.4050 ####[facility] [address] [place], [address] Cholesterol in VLDL [Mass/Vol] 37 mg/dL Normal 5-40 [facility] Comment on above: Performed By: #### L 500.4100, L501.9520, L506.1001, L100.0100, L500.4050 ####[facility] [address] [place], [address] Triglyceride [Mass/Vol] 186 mg/dL Normal [facility] Comment on above: Result Comment: The drugs N-Acetylcysteine and Metamizole may falselydepress this assay.Normal range: <150 mg/dLBorderline High: 150-199 mg/dLHigh: 200-499 mg/dLVery High: >500 mg/dL Performed By: #### L 500.4100, L501.9520, L506.1001, L100.0100, L500.4050 ####[facility] [address] [place], [address] MCV (mean corpuscular volume ) determinationOrdered By: Shahid Raya on 12-15-2024 MCV (RBC) [Entitic vol] 93.7 fL 81-99 [facility] Mean corpuscular hemoglobin (MCH) determinationOrdered By: Shahid Raya on 12-15-2024 MCH (RBC) [Entitic mass] 31.4 pg 27.0-32.0 [facility] Mean corpuscular hemoglobin concentration (MCHC) determinationOrdered By: Shahid Raya on 12-15-2024 MCHC (RBC) [Mass/Vol] 33.5 g/dL 32-36 [facility] Mean platelet volume determi nationOrdered By: Shahid Raya on 12-15-2024 Platelet mean volume (Bld) [Entitic vol] 9.6 fL 6.2-12.0 [facility] Monocyte percentageOrdered B y: Shahid Raya on 12-15-2024 Monocytes/100 WBC (Bld) 6.6 % 0-10 [facility] Neutrophil percentageOrdered By: Shahid Raya on 12-15-2024 Neutrophils/100 WBC (Bld) 62.8 % 47-70 [facility] No Panel InformationOrdered By: Shahid Raya on 12-15-2024 22 U/L <32 [facility] Nucleated red blood cell per centageOrdered By: Shahid Raya on 12-15-2024 Nucleated RBC/100 WBC (Bld) [Ratio] 0 % 0-5 [facility] Platelet countOrdered By: Juan José Raya on 12-15-2024 Platelets (Bld) [#/Vol] 288 10*3/uL 150-450 [facility] Potassium measurement (mass/ volume)Ordered By: Shahid Raya on 12-15-2024 Potassium (Unsp spec) [Mass/Vol] 3.6 mmol/L 3.3-5.1 [facility] RBC Auto (Bld) [#/Vol]Ordere d By: Shahid Raya on 12-15-2024 RBC (Bld) [#/Vol] 3.34 10*6/uL Low 4.2-5.4 [facility] Screening total cholesterol/ high density lipoprotein (HDL) cholesterol ratioOrdered By: Shahid Raya on 12-15-2024 Cholesterol.total/Cho lesterol in HDL [Mass ratio] 3.80 {ratio} [facility] Serum creatinine measurement (mass/volume)Ordered By: Shahid Raya on 12-15-2024 Creatinine [Mass/Vol] 1.05 mg/dL 0.70-1.20 [facility] Serum globulin measurementOr dered By: Shahid Raya on 12-15-2024 Globulin (S) [Mass/Vol] 2.7 g/dL 2.2-4.2 [facility] Serum glucose measurement (m ass/volume)Ordered By: Shahid Raya on 12-15-2024 Glucose [Mass/Vol] 107 mg/dL High 70-[address] [facility] Serum or plasma alanine mueller otransferase (ALT) measurementOrdered By: Shahid Raya on 12-15-2024 ALT [Catalytic activity/Vol] 14 U/L <35 [facility] Serum or plasma albumin patricia urement (mass/volume)Ordered By: Shahid Raya 12-15-2024 Albumin [Mass/Vol] 4.1 g/dL 3.4-4.[address] [facility] Serum or plasma albumin/glob ulin mass ratioOrdered By: Shahid Raya 12-15-2024 Albumin/Globulin [Mass ratio] 1.5 {ratio} 0.9-2.4 [facility] Serum or plasma alkaline paulina sphatase measurementOrdered By: Shahid Raya 12-15-2024 ALP [Catalytic activity/Vol] 81 U/L 35-104 [facility] Serum or plasma calcium patricia urement (mass/volume)Ordered By: Shahid Raya 12-15-2024 Calcium [Mass/Vol] 9.4 mg/dL 7.6-11.[address] [facility] Serum or plasma cholesterol in HDL measurement (mass/volume)Ordered By: Shahid Raya 12-15-2024 Cholesterol in HDL [Mass/Vol] 35 mg/dL Low >40 [facility] Comment on above: National Cholesterol Education Program (NCEP) guidelines:<40 mg/dL: Low HDL-cholesterol (major risk factor for CHD)>= 60 mg/dL: High HDL-cholesterol (negative risk factor for CHD)HDL-cholesterol is affected by a number of factors, e.g. smoking, exercise, hormones, sex and age. Serum or plasma cholesterol measurement (mass/volume)Ordered By: Shahid Raya on 12-15-2024 Cholesterol [Mass/Vol] 133 mg/dL <201 [facility] Comment on above: Cholesterol level, D esirable <200 mg/dLBorderline high cholesterol 200-239 mg/dLHigh cholesterol >=240 mg/dLRecommendations of the NCEP Adult Treatment Panel for the following risk-cutoff thresholds for the [place] population. Serum or plasma urea nitroge n measurement (mass/volume)Ordered By: Shahid Raya on 12-15-2024 Urea nitrogen [Mass/Vol] 18 mg/dL 4-19 [facility] Sodium levelOrdered By: Shahid Raya on 12-15-2024 Sodium [Moles/Vol] 138 mmol/L 133-[address] [facility] TSH DL <= 0.005 mIU/L QnOrde red By: Shahid Raya on 12-15-2024 TSH Qn 1.330 uIU/mL 0.300-4.20 0 [facility] Thyroid Stim Hormone (TSH)on 12-15-2024 TSH 1.330 uIU/mL Normal 0.300-4.20 0 [facility] Comment on above: Performed By: #### L 500.4100, L501.9520, L506.1001, L100.0100, L500.4050 ####[facility] [address] [place], [place], [address] Total proteinOrdered By: Shahid Raya on 12-15-2024 Protein [Mass/Vol] 6.8 g/dL 5.9-8.[address] [facility] Triglycerides measurementOrd ered By: Shahid Raya on 12-15-2024 Triglyceride [Mass/Vol] 186 mg/dL <199 [facility] Comment on above: The drugs N-Acetylcy steine and Metamizole may falsely depress this assay. Normal range: <150 mg/dLBorderline High: 150-199 mg/dLHigh: 200-499 mg/dLVery High: >500 mg/dL Vitamin D,25 Hydroxyon 12-15 Vitamin D 25-OH 57.9 ng/mL Normal 30-100 [facility] Comment on above: Result Comment: Yvonne min D StatusDeficiency: <20 ng/mL (50nmol/L)Insufficiency: 20-30 ng/mL (50-75 nmol/L)Sufficiency: 30-100 ng/mL (75-250 nmol/L)Toxicity: >100 ng/mL (>250 nmol/L) Performed By: #### L 500.9410, L501.9520, L506.1001, L100.0100, L500.4050 ####[facility] [address] [place], [address] White blood cell (WBC) count Ordered By: Shahid Raya on 12-15-2024 WBC (Bld) [#/Vol] 8.1 10*3/uL 4.4-11.[address] [facility] Arterial Doppler ultrasound reportOrdered By: Crow Dc on 12-14-2024 Study report [facility] [address] [place] [address] US Art Duplex Bilat Lower Ext 12/11/24 0917 MR#: [id number] Acct: [id number] Name: JIMENEZANA Michelle Rep #:[id number] : 1945 79 From: Crow Jurado Attending Dr: MANDIE Montero Stat us: REG CLI Ordering Dr: Tiana Wood Date: Location: [facility] Sex: F C Admitted: Reason For Study Reason For Study: S/P Fem-Fem BPG Right Velocities Left Velocities Ext. Iliac Artery, dist = 250.0 cm./sec. Rt to Lt CLINICAL NURSING MANAGER - CLINICAL NURSING MANAGER BPG noted. Common Femoral Artery, mid = 151.4 cm./sec. Pre Anastomosis - 209.3 cm/s Supf Femoral Artery, prox = 144.0 cm./sec. Prox Anastomosis at Prox CLINICAL NURSING MANAGER - 357.7 cm/s Supf Femoral Artery, mid = 68.8 cm./sec. Approximately 1.31 cm distal to anastomosis - 148.4 cm/s Supf Femoral Artery, dist. = 96.5 cm./sec. Prox BPG - 71.1 cm/s Profunda Femoral Artery = 32.7 cm./sec. Mid BPG - 82.0 cm/s Popliteal Artery, mid = 81.8 cm./sec. Dist BPG - 65.6 cm/s Post. Tibial Artery, prox = 130.8 cm./sec. Distal Anastomosis -94.8 cm/s Post. Tibial Artery, mid = 104.5 cm./sec. Proximal SFA appearsoccluded. Post. Tibial Artery, dist = 102.3 cm./sec. Proximal Deep/Profunda Fem A - 71.1 cm/s Peroneal Artery, prox = 65.0 cm./sec. Mid Deep/Profunda Fem A - 113.1 cm/s Peroneal Artery, mid = 78.1 cm./sec. Distal Deep/ProfundaFem A - 28.1 cm/s Peroneal Artery,dist = 95.7 cm./sec. Nonvascularized Anechoic Area noted at Distal Anastomosis Ant. Tibial Artery, prox = 39.1 cm./sec. (Lt Groin) measuringapproximately 5.09cm x 1.82cm. Ant. Tibial Artery, mid = 29.2 cm./sec. Popliteal Artery, proximal, = 35.8 cm./sec. Ant. Tibial Artery, dist = 157.2 cm./sec. Popliteal Artery, mid = 32.9 cm./sec. Popliteal Artery, distal = 36.2 cm./sec. Post. Tibial Artery,prox = 24.1 cm./sec. Post Tibial Artery, mid = 29.6 cm./sec. Post Tibial Artery, dist. = 14.2 cm./sec. Peroneal Artery, prox = 76.8 cm./sec. Peroneal Artery, mid= 47.2 cm./sec. Peroneal Artery,dist. = 35.1 cm./sec. Ant.Tibial Artery, prox = 62.5 cm./sec. Ant Tibial Artery, mid = 41.7 cm./sec. Ant. Tibial Artery, distal = 35.1 cm./sec. Procedure The exam was diagnostic. VL/US Art Duplex Bilat Lower Ext Interpretation Summary Patent right to left femoral-femoral bypass with elevated velocities at proximalanastomosis, 50-75% stenosis. Right lower extremity vessels patent, no visualized stenosis. Left superficial femoral artery occlusion. Nonvascularized anechoic area noted at left groin measuring approximately 5.09cmx 1.82cm. Ordering Physician: Tiana Wood Referring Physician: Shahid Raya Chi Performed By: Brodie Georges, RVT 12/14/241655 Date _ Crow Dc MD CC: MANDIE Montero; Dr. Shahid Raya MD ~ Date Dictated: 12/11/24916 Date Transcribed: 12/14/241655 Playground Official: Signed [facility] Work Phone: Arterial study reportOrdered By: Crow Dc on 12-14-2024 Noninvasive arteriosclerosis study report [facility] [address] [place] [address] Ankle Brachial Index 12/11/24 0910 MR#: [id number] Acct: [id number] Name: ANA JIMENEZ Rep #:[id number] : 1945 79 From: Crow Jurado Attending Dr: MANDIE Montero Stat us: REG CLI Ordering Dr: Tiana Wood Date: Location: [facility] Sex: F C Admitted: Reason For Study Reason For Study: S/P Rt to Lt Fem/Fem BPG Procedure A bilateral lower extremity continuous wave Doppler with analog waveform analysis and ankle brachial indexes. Left Segmental Pressures Left brachial= 142mmHg. Left posterior tibial artery = 99mmHg. Left dorsalis pedis artery = 96mmHg. Left digit = 68 mmHg. The left posterior tibial artery waveforms are monophasic. The left dorsalis pedis waveforms are monophasic. Right Segmental Pressures Right brachial= 136mmHg. Right posterior tibial artery = 135mmHg. Right dorsalispedis artery = 122mmHg. Right digit = 77 mmHg. The right posterior tibial artery waveforms are biphasic. The right dorsalis pedis waveforms are biphasic. Indices The right ankle brachial index by the posterior tibial artery is 0.95. The rightankle brachial index by the dorsalis pedis is 0.86. The right digital-brachial index is 0.54. The left ankle brachialindex by the posterior tibial artery is 0.70. The left ankle brachial index by the dorsalis pedis is 0.68. The left digital-brachial index is 0.48. VL/Ankle Brachial Index Interpretation Summary Right MARY BETH 0.95, mild arterial insufficiency. Doppler/PVR waveforms of the right ankle mildly diminished at rest. Left MARY BETH 0.7, moderate arterial insufficiency. Doppler/PVR waveforms of the leftankle moderately diminished at rest. Ordering Physician: Tiana Wood Referring Physician: Shahid Raya Chi Performed By: Brodie Georges, Tanya 12/14/241648 Date _ Crow Dc MD CC: MANDIE Montero; Dr. Shahid Raya MD ~ Date Dictated: 12/11/24909 Date Transcribed: 12/14/241648 Playground Official: Signed [facility] Work Phone: Ankle Brachial Indexon 12-11 Ankle Brachial Index Normal [facility] Basic Metabolic Profile (BMP )on 12-11-2024 BUN Normal 4-19 [facility] Comment on above: Result Comment: Canc elled via OM: Order cancelled - Patient discharged Performed By: #### L 500.2500, L100.0100 ####[facility] [address] [place], [address] BUN/CRE Normal 10-20 [facility] Comment on above: Result Comment: Canc elled via OM: Order cancelled - Patient discharged Performed By: #### L 500.2500, L100.0100 ####[facility] [address] [place], [address] Calcium Normal 7.6-11.0 [facility] Comment on above: Result Comment: Canc elled via OM: Order cancelled - Patient discharged Performed By: #### L 500.2500, L100.0100 ####[facility] [address] [place], [address] CL Normal 98-108 [facility] Comment on above: Result Comment: Canc elled via OM: Order cancelled - Patient discharged Performed By: #### L 500.2500, L100.0100 ####[facility] [address] [place], [address] CO2 Normal 21.0-32.0 [facility] Comment on above: Result Comment: Canc elled via OM: Order cancelled - Patient discharged Performed By: #### L 500.2500, L100.0100 ####[facility] [address] [place], [address] CREAT,SERUM Normal 0.70-1.20 [facility] Comment on above: Result Comment: Canc elled via OM: Order cancelled - Patient discharged Performed By: #### L 500.2500, L100.0100 ####[facility] [address] [place], [address] eGFR Normal >60 [facility] Comment on above: Result Comment: Canc elled via OM: Order cancelled - Patient discharged Performed By: #### L 500.2500, L100.0100 ####[facility] [address] [place], [address] GAP Normal 5-15 [facility] Comment on above: Result Comment: Canc elled via OM: Order cancelled - Patient discharged Performed By: #### L 500.2500, L100.0100 ####[facility] [address] [place], [address] GLU Normal 70-99 [facility] Comment on above: Result Comment: Canc elled via OM: Order cancelled - Patient discharged Performed By: #### L 500.2500, L100.0100 ####[facility] [address] [place], [address] Potassium Normal 3.3-5.1 [facility] Comment on above: Result Comment: Canc elled via OM: Order cancelled - Patient discharged Performed By: #### L 500.2500, L100.0100 ####[facility] [address] [place], [address] Basic Metabolic Profile (BMP) Normal 133-145 [facility] Comment on above: Result Comment: Canc elled via OM: Order cancelled - Patient discharged Performed By: #### L 500.2500, L100.0100 ####[facility] [address] [place], [address] CBC W/Diff, Automatedon 06-2 0-2024 Absolute Neut Normal 2.0-7.7 [facility] Comment on above: Result Comment: Canc elled via OM: Order cancelled - Patient discharged Performed By: #### L 500.2500, L100.0100 ####[facility] [address] [place], [address] HCT Normal 37-47 [facility] Comment on above: Result Comment: Canc elled via OM: Order cancelled - Patient discharged Performed By: #### L 500.2500, L100.0100 ####[facility] [address] [place], [address] HGB Normal 12.0-15.0 [facility] Comment on above: Result Comment: Canc elled via OM: Order cancelled - Patient discharged Performed By: #### L 500.2500, L100.0100 ####[facility] [address] [place], [address] MCH Normal 27.0-32.0 [facility] Comment on above: Result Comment: Canc elled via OM: Order cancelled - Patient discharged Performed By: #### L 500.2500, L100.0100 ####[facility] [address] [place], [address] MCHC Normal 32-36 [facility] Comment on above: Result Comment: Canc elled via OM: Order cancelled - Patient discharged Performed By: #### L 500.2500, L100.0100 ####[facility] [address] [place], [address] MCV Normal 81-99 [facility] Comment on above: Result Comment: Canc elled via OM: Order cancelled - Patient discharged Performed By: #### L 500.2500, L100.0100 ####[facility] [address] [place], [address] NEUT% Normal 47-70 [facility] Comment on above: Result Comment: Canc elled via OM: Order cancelled - Patient discharged Performed By: #### L 500.2500, L100.0100 ####[facility] [address] [place], [address] PLT Normal 150-450 [facility] Comment on above: Result Comment: Canc elled via OM: Order cancelled - Patient discharged Performed By: #### L 500.2500, L100.0100 ####[facility] [address] [place], [address] RBC Normal 4.2-5.4 [facility] Comment on above: Result Comment: Canc elled via OM: Order cancelled - Patient discharged Performed By: #### L 500.2500, L100.0100 ####[facility] [address] [place], [address] RDW CV Normal 11.6-14.6 [facility] Comment on above: Result Comment: Canc elled via OM: Order cancelled - Patient discharged Performed By: #### L 500.2500, L100.0100 ####[facility] [address] [place], [address] RDW SD Normal 35.1-43.9 [facility] Comment on above: Result Comment: Canc elled via OM: Order cancelled - Patient discharged Performed By: #### L 500.2500, L100.0100 ####[facility] [address] [place], [address] WBC Normal 4.4-11.0 [facility] Comment on above: Result Comment: Canc elled via OM: Order cancelled - Patient discharged Performed By: #### L 500.2500, L100.0100 ####[facility] [address] [place], [address] US Art Duplex Bilat Lower Ex ton 12-11-2024 US Art Duplex Bilat Lower Ext Normal [facility] Absolute lymphocyte countOrd ered By: Shahid Raya on 12-08-2024 Lymphocytes Auto (Unsp spec) [#/Vol] 1.49 10*3/uL 0.83-4.51 [facility] Absolute neutrophil countOrd ered By: Shahid Raya on 12-08-2024 Neutrophils (Bld) [#/Vol] 6.1 10*3/uL 2.0-7.7 [facility] Anion gap in Serum or Plasma Ordered By: Shahid Raya on 12-08-2024 Anion gap [Moles/Vol] 13 mmol/L 5-15 [facility] Automated lymphocyte count a s percentage of total leukocytesOrdered By: Shahid Raya on 12-08-2024 Lymphocytes/100 WBC Auto (Unsp spec) 18.3 % Low 19-41 [facility] BUN/creatinine ratioOrdered By: Shahid Raya on 12-08-2024 Urea nitrogen/Creatinine [Mass ratio] 16.1 mg/mg - [facility] Basic Metabolic Profile (BMP )on 12-08-2024 BUN/CRE 16.1 RATIO Normal - [facility] Comment on above: Performed By: #### L 500.2500, L503.0106, L100.0100 ####[facility] [address] [place], [address] Calcium [Mass/Vol] 9.5 mg/dL Normal 7.6-11.[address] [facility] Comment on above: Performed By: #### L 500.2500, L503.0106, L100.0100 ####[facility] [address] [place], [address] Chloride [Moles/Vol] 103 mmol/L Normal 98-108 [facility] Comment on above: Performed By: #### L 500.2500, L503.0106, L100.0100 ####[facility] [address] [place], [address] CO2 [Moles/Vol] 22.7 mmol/L Normal 21.0-32.0 [facility] Comment on above: Performed By: #### L 500.2500, L503.0106, L100.0100 ####[facility] [address] [place], [address] Creatinine [Mass/Vol] 1.05 mg/dL Normal 0.70-1.20 [facility] Comment on above: Performed By: #### L 500.2500, L503.0106, L100.0100 ####[facility] [address] [place], [address] GAP 13 Normal 5-15 [facility] Comment on above: Performed By: #### L 500.2500, L503.0106, L100.0100 ####[facility] [address] [place], [address] GFR/1.73 sq M.predicted among non-blacks MDRD (S/P/Bld) [Vol rate/Area] 54 mL/min/{1.73_m2} Low >60 [facility] Comment on above: Result Comment: mL/m in/1.73m2 CKD-EPI Creatinine Equation (2020) Performed By: #### L 500.2500, L503.0106, L100.0100 ####[facility] [address] [place], [address] Glucose [Mass/Vol] 166 mg/dL High 70-[address] [facility] Comment on above: Performed By: #### L 500.2500, L503.0106, L100.0100 ####[facility] [address] [place], [address] Potassium [Moles/Vol] 3.8 mmol/L Normal 3.3-5.1 [facility] Comment on above: Performed By: #### L 500.2500, L503.0106, L100.0100 ####[facility] [address] [place], [address] Sodium [Moles/Vol] 138 mmol/L Normal 133-[address] [facility] Comment on above: Performed By: #### L 500.2500, L503.0106, L100.0100 ####[facility] [address] [place], [address] Urea nitrogen [Mass/Vol] 17 mg/dL Normal 4-19 [facility] Comment on above: Performed By: #### L 500.2500, L503.0106, L100.0100 ####[facility] [address] [place], [address] Basophil percentageOrdered B y: Shahid Raya on 12-08-2024 Basophils/100 WBC (Bld) 0.1 % 0-1 [facility] CBC W/Diff, Automatedon 11-22 Absolute Lymph 1.49 X10 3/uL Normal 0.83-4.51 [facility] Comment on above: Performed By: #### L 500.2500, L503.0106, L100.0100 ####[facility] [address] [place], [address] Absolute Neut 6.1 X10 3/uL Normal 2.0-7.7 [facility] Comment on above: Performed By: #### L 500.2500, L503.0106, L100.0100 ####[facility] [address] [place], [address] Basophils/100 WBC (Bld) 0.1 % Normal 0-1 [facility] Comment on above: Performed By: #### L 500.2500, L503.0106, L100.0100 ####[facility] [address] [place], [address] Eosinophils/100 WBC (Bld) 0.5 % Normal 0-5 [facility] Comment on above: Performed By: #### L 500.2500, L503.0106, L100.0100 ####[facility] [address] [place], [address] Erythrocyte distribution width (RBC) [Ratio] 15.1 % High 11.6-14.6 [facility] Comment on above: Performed By: #### L 500.2500, L503.0106, L100.0100 ####[facility] [address] [place], [address] Hematocrit (Bld) [Volume fraction] 29.1 % Low 37-47 [facility] Comment on above: Performed By: #### L 500.2500, L503.0106, L100.0100 ####[facility] [address] [place], [address] Hemoglobin (Bld) [Mass/Vol] 9.7 g/dL Low 12.0-15.0 [facility] Comment on above: Performed By: #### L 500.2500, L503.0106, L100.0100 ####[facility] [address] [place], [address] IG% 0.400 Normal 0.0-0.9 [facility] Comment on above: Result Comment: IG% - Immature Granulocytes (promyelocytes, myelocytes andmetamyelocytes) > 1% indicates that a LEFT SHIFT is Present. Performed By: #### L 500.2500, L503.0106, L100.0100 ####[facility] [address] [place], [address] Lymphocytes/100 WBC (Bld) 18.3 % Low 19-41 [facility] Comment on above: Performed By: #### L 500.2500, L503.0106, L100.0100 ####[facility] [address] [place], [address] MCH (RBC) [Entitic mass] 31.5 pg Normal 27.0-32.0 [facility] Comment on above: Performed By: #### L 500.2500, L503.0106, L100.0100 ####[facility] [address] [place], [address] MCHC (RBC) [Mass/Vol] 33.3 g/dL Normal 32-36 [facility] Comment on above: Performed By: #### L 500.2500, L503.0106, L100.0100 ####[facility] [address] [place], [address] MCV (RBC) [Entitic vol] 94.5 fL Normal 81-99 [facility] Comment on above: Performed By: #### L 500.2500, L503.0106, L100.0100 ####[facility] [address] [place], [address] Monocytes/100 WBC (Bld) 5.7 % Normal 0-10 [facility] Comment on above: Performed By: #### L 500.2500, L503.0106, L100.0100 ####[facility] [address] [place], [address] Neutrophils/100 WBC (Bld) 75.0 % High 47-70 [facility] Comment on above: Performed By: #### L 500.2500, L503.0106, L100.0100 ####[facility] [address] [place], [address] Nucleated RBC (Bld) [#/Vol] 0 10*3/uL Normal 0-5 [facility] Comment on above: Performed By: #### L 500.2500, L503.0106, L100.0100 ####[facility] [address] [place], [address] Platelet mean volume (Bld) [Entitic vol] 9.6 fL Normal 6.2-12.0 [facility] Comment on above: Performed By: #### L 500.2500, L503.0106, L100.0100 ####[facility] [address] [place], [address] Platelets (Bld) [#/Vol] 274 10*3/uL Normal 150-450 [facility] Comment on above: Performed By: #### L 500.2500, L503.0106, L100.0100 ####[facility] [address] [place], [address] RBC (Bld) [#/Vol] 3.08 10*6/uL Low 4.2-5.4 [facility] Comment on above: Performed By: #### L 500.2500, L503.0106, L100.0100 ####[facility] [address] [place], [address] RDW SD 52.7 fl High 35.1-43.9 [facility] Comment on above: Performed By: #### L 500.2500, L503.0106, L100.0100 ####[facility] [address] [place], [address] WBC (Bld) [#/Vol] 8.1 10*3/uL Normal 4.4-11.[address] [facility] Comment on above: Performed By: #### L 500.2500, L503.0106, L100.0100 ####[facility] [address] [place], [address] Carbon dioxide, total [Moles /volume] in Central venous bloodOrdered By: Shahid Raya on 12-08-2024 CO2 [Moles/Vol] 22.7 mmol/L 21.0-32.0 [facility] Chloride assayOrdered By: Juan José Raya on 12-08-2024 Chloride [Moles/Vol] 103 mmol/L 98-108 [facility] Eosinophil percentageOrdered By: Shahid Raya on 12-08-2024 Eosinophils/100 WBC (Bld) 0.5 % 0-5 [facility] Erythrocyte distribution wid th ratioOrdered By: Shahid Raya 12-08-2024 Erythrocyte distribution width (RBC) [Ratio] 15.1 % High 11.6-14.6 [facility] Erythrocyte distribution wid th standard deviationOrdered By: Shahid Raya 12-08-2024 Erythrocyte distribution width (RBC) [Ratio] 52.7 fl High 35.1-43.9 [facility] Glomerular filtration rate ( GFR) estimation/1.73 sq m using serum, plasma, or whole bOrdered By: Shahid Raya on 12-08-2024 GFR/1.73 sq M.predicted among non-blacks MDRD (S/P/Bld) [Vol rate/Area] 54 mL/min/{1.73_m2} Low >60 [facility] Comment on above: mL/min/1.73m2 CKD-EP I Creatinine Equation (2020) Hematocrit Auto (Bld) [Volum e fraction]Ordered By: Shahid Raya on 12-08-2024 Hematocrit (Bld) [Volume fraction] 29.1 % Low 37-47 [facility] Hemoglobin measurementOrdere d By: Shahid Raya on 12-08-2024 Hemoglobin (Bld) [Mass/Vol] 9.7 g/dL Low 12.0-15.0 [facility] Immature granulocytes/100 WB C Auto (Bld)Ordered By: Shahid Raya on 12-08-2024 Immature granulocytes/100 WBC (Bld) 0.400 % 0.0-0.9 [facility] Comment on above: IG% - Immature Granu locytes (promyelocytes, myelocytes and metamyelocytes) > 1% indicates that a LEFT SHIFT is Present. MCV (mean corpuscular volume ) determinationOrdered By: Shahid Raya on 12-08-2024 MCV (RBC) [Entitic vol] 94.5 fL 81-99 [facility] Mean corpuscular hemoglobin (MCH) determinationOrdered By: Shahid Raya 12-08-2024 MCH (RBC) [Entitic mass] 31.5 pg 27.0-32.0 [facility] Mean corpuscular hemoglobin concentration (MCHC) determinationOrdered By: Shahid Raya on 12-08-2024 MCHC (RBC) [Mass/Vol] 33.3 g/dL 32-36 [facility] Mean platelet volume determi nationOrdered By: Shahid Raya on 12-08-2024 Platelet mean volume (Bld) [Entitic vol] 9.6 fL 6.2-12.0 [facility] Monocyte percentageOrdered B y: Shahid Raya on 12-08-2024 Monocytes/100 WBC (Bld) 5.7 % 0-10 [facility] Neutrophil percentageOrdered By: Shahid Raya on 12-08-2024 Neutrophils/100 WBC (Bld) 75.0 % High 47-70 [facility] Nucleated red blood cell per centageOrdered By: Shahid Raya on 12-08-2024 Nucleated RBC/100 WBC (Bld) [Ratio] 0 % 0-5 [facility] Platelet countOrdered By: Juan José Raya on 12-08-2024 Platelets (Bld) [#/Vol] 274 10*3/uL 150-450 [facility] Potassium measurement (mass/ volume)Ordered By: Shahid Raya on 12-08-2024 Potassium (Unsp spec) [Mass/Vol] 3.8 mmol/L 3.3-5.1 [facility] RBC Auto (Bld) [#/Vol]Ordere d By: Shahid Raya on 12-08-2024 RBC (Bld) [#/Vol] 3.08 10*6/uL Low 4.2-5.4 [facility] Serum creatinine measurement (mass/volume)Ordered By: Shahid Raya on 12-08-2024 Creatinine [Mass/Vol] 1.05 mg/dL 0.70-1.20 [facility] Serum glucose measurement (m ass/volume)Ordered By: Shahid Raya on 12-08-2024 Glucose [Mass/Vol] 166 mg/dL High 70-[address] [facility] Serum or plasma calcium patricia urement (mass/volume)Ordered By: Shahid Raya on 12-08-2024 Calcium [Mass/Vol] 9.5 mg/dL 7.6-11.[address] [facility] Serum or plasma urea nitroge n measurement (mass/volume)Ordered By: Shahid Raya on 12-08-2024 Urea nitrogen [Mass/Vol] 17 mg/dL 4-19 [facility] Sodium levelOrdered By: Shahid Raya on 12-08-2024 Sodium [Moles/Vol] 138 mmol/L 133-[address] [facility] Vitamin B12on 12-08-2024 Cobalamin (Vitamin B12) [Mass/Vol] 646 pg/mL Normal 180-914 [facility] Comment on above: Performed By: #### L 500.2500, L503.0106, L100.0100 ####[facility] [address] [place], [address] Vitamin B12 ser/plasOrdered By: Shahid Raya on 12-08-2024 Cobalamin (Vitamin B12) [Mass/Vol] 646 pg/mL 180-914 [facility] White blood cell (WBC) count Ordered By: Shahid Raya on 12-08-2024 WBC (Bld) [#/Vol] 8.1 10*3/uL 4.4-11.[address] [facility] Inital Evaluation (1) - PTon 12-07-2024 Inital Evaluation (1) - PT Normal [facility] Absolute lymphocyte countOrd ered By: Shahid Raya on 12-04-2024 Lymphocytes Auto (Unsp spec) [#/Vol] 2.34 10*3/uL 0.83-4.51 [facility] Absolute neutrophil countOrd ered By: [facility] 12-[facility]-2024 Neutrophils (Bld) [#/Vol] 4.2 10*3/uL 2.0-7.7 [facility] Anion gap in Serum or Plasma Ordered By: Shahid Raya on 12-04-2024 Anion gap [Moles/Vol] 12 mmol/L 5-15 [facility] Automated lymphocyte count a s percentage of total leukocytesOrdered By: Shahid De Los Santosok on 12-04-2024 Lymphocytes/100 WBC Auto (Unsp spec) 32.6 % - [facility] BUN/creatinine ratioOrdered By: Shaihd Elver on 12-04-2024 Urea nitrogen/Creatinine [Mass ratio] 23.4 mg/mg High 10- [facility] Basic Metabolic Profile (BMP )on 12-04-2024 BUN/CRE 23.4 RATIO High - [facility] Comment on above: Performed By: #### L 100.0100, L500.2500 ####[facility] [address] [place], [address] Calcium [Mass/Vol] 9.1 mg/dL Normal 7.6-11.[address] [facility] Comment on above: Performed By: #### L 100.0100, L500.2500 ####[facility] [address] [place], [address] Chloride [Moles/Vol] 104 mmol/L Normal 98-108 [facility] Comment on above: Performed By: #### L 100.0100, L500.2500 ####[facility] [address] [place], [address] CO2 [Moles/Vol] 21.0 mmol/L Normal 21.0-32.0 [facility] Comment on above: Performed By: #### L 100.0100, L500.2500 ####[facility] [address] [place], [address] Creatinine [Mass/Vol] 0.75 mg/dL Normal 0.70-1.20 [facility] Comment on above: Performed By: #### L 100.0100, L500.2500 ####[facility] [address] [place], [address] ECRCL 51.39 ml/min Normal 50-250 [facility] Comment on above: Performed By: #### L 100.0100, L500.2500 ####[facility] [address] [place], [address] GAP 12 Normal 5-15 [facility] Comment on above: Performed By: #### L 100.0100, L500.2500 ####[facility] [address] [place], [address] GFR/1.73 sq M.predicted among non-blacks MDRD (S/P/Bld) [Vol rate/Area] 82 mL/min/{1.73_m2} Normal >60 [facility] Comment on above: Result Comment: mL/m in/1.73m2 CKD-EPI Creatinine Equation (2020) Performed By: #### L 100.0100, L500.2500 ####[facility] [address] [place], [address] Glucose [Mass/Vol] 108 mg/dL High 70-[address] [facility] Comment on above: Performed By: #### L 100.0100, L500.2500 ####[facility] [address] [place], [address] Potassium [Moles/Vol] 4.3 mmol/L Normal 3.3-5.1 [facility] Comment on above: Performed By: #### L 100.0100, L500.2500 ####[facility] [address] [place], [address] Sodium [Moles/Vol] 137 mmol/L Normal 133-[address] [facility] Comment on above: Performed By: #### L 100.0100, L500.2500 ####[facility] [address] [place], [address] Urea nitrogen [Mass/Vol] 18 mg/dL Normal 4-19 [facility] Comment on above: Performed By: #### L 100.0100, L500.2500 ####[facility] [address] [place], [address] Basophil percentageOrdered B y: Shahid Raya on 12-04-2024 Basophils/100 WBC (Bld) 0.4 % 0-1 [facility] CBC W/Diff, Automatedon 11-22 Absolute Lymph 2.34 X10 3/uL Normal 0.83-4.51 [facility] Comment on above: Performed By: #### L 100.0100, L500.2500 ####[facility] [address] [place], [address] Absolute Neut 4.2 X10 3/uL Normal 2.0-7.7 [facility] Comment on above: Performed By: #### L 100.0100, L500.2500 ####[facility] [address] [place], [address] Basophils/100 WBC (Bld) 0.4 % Normal 0-1 [facility] Comment on above: Performed By: #### L 100.0100, L500.2500 ####[facility] [address] [place], [address] Eosinophils/100 WBC (Bld) 1.7 % Normal 0-5 [facility] Comment on above: Performed By: #### L 100.0100, L500.2500 ####[facility] [address] [place], [address] Erythrocyte distribution width (RBC) [Ratio] 15.0 % High 11.6-14.6 [facility] Comment on above: Performed By: #### L 100.0100, L500.2500 ####[facility] [address] [place], [address] Hematocrit (Bld) [Volume fraction] 28.4 % Low 37-47 [facility] Comment on above: Performed By: #### L 100.0100, L500.2500 ####[facility] [address] [place], [address] Hemoglobin (Bld) [Mass/Vol] 9.5 g/dL Low 12.0-15.0 [facility] Comment on above: Performed By: #### L 100.0100, L500.2500 ####[facility] [address] [place], [address] IG% 0.300 Normal 0.0-0.9 [facility] Comment on above: Result Comment: IG% - Immature Granulocytes (promyelocytes, myelocytes andmetamyelocytes) > 1% indicates that a LEFT SHIFT is Present. Performed By: #### L 100.0100, L500.2500 ####[facility] [address] [place], [address] Lymphocytes/100 WBC (Bld) 32.6 % Normal 19-41 [facility] Comment on above: Performed By: #### L 100.0100, L500.2500 ####[facility] [address] [place], [address] MCH (RBC) [Entitic mass] 31.7 pg Normal 27.0-32.0 [facility] Comment on above: Performed By: #### L 100.0100, L500.2500 ####[facility] [address] [place], [address] MCHC (RBC) [Mass/Vol] 33.5 g/dL Normal 32-36 [facility] Comment on above: Performed By: #### L 100.0100, L500.2500 ####[facility] [address] [place], [address] MCV (RBC) [Entitic vol] 94.7 fL Normal 81-99 [facility] Comment on above: Performed By: #### L 100.0100, L500.2500 ####[facility] [address] [place], [address] Monocytes/100 WBC (Bld) 6.8 % Normal 0-10 [facility] Comment on above: Performed By: #### L 100.0100, L500.2500 ####[facility] [address] [place], [address] Neutrophils/100 WBC (Bld) 58.2 % Normal 47-70 [facility] Comment on above: Performed By: #### L 100.0100, L500.2500 ####[facility] [address] [place], [address] Nucleated RBC (Bld) [#/Vol] 0 10*3/uL Normal 0-5 [facility] Comment on above: Performed By: #### L 100.0100, L500.2500 ####[facility] [address] [place], [address] Platelet mean volume (Bld) [Entitic vol] 9.5 fL Normal 6.2-12.0 [facility] Comment on above: Performed By: #### L 100.0100, L500.2500 ####[facility] [address] [place], [address] Platelets (Bld) [#/Vol] 302 10*3/uL Normal 150-450 [facility] Comment on above: Performed By: #### L 100.0100, L500.2500 ####[facility] [address] [place], [address] RBC (Bld) [#/Vol] 3.00 10*6/uL Low 4.2-5.4 [facility] Comment on above: Performed By: #### L 100.0100, L500.2500 ####[facility] [address] [place], [address] RDW SD 51.6 fl High 35.1-43.9 [facility] Comment on above: Performed By: #### L 100.0100, L500.2500 ####[facility] [address] [place], [address] WBC (Bld) [#/Vol] 7.2 10*3/uL Normal 4.4-11.[address] [facility] Comment on above: Performed By: #### L 100.0100, L500.2500 ####[facility] [address] [place], [address] Carbon dioxide, total [Moles /volume] in Central venous bloodOrdered By: Shahid Raya 12-04-2024 CO2 [Moles/Vol] 21.0 mmol/L 21.0-32.0 [facility] Chloride assayOrdered By: Juan José Raya on 12-04-2024 Chloride [Moles/Vol] 104 mmol/L 98-108 [facility] Eosinophil percentageOrdered By: Shahid Raya 12-04-2024 Eosinophils/100 WBC (Bld) 1.7 % 0-5 [facility] Erythrocyte distribution wid th ratioOrdered By: Shahid Raya 12-04-2024 Erythrocyte distribution width (RBC) [Ratio] 15.0 % High 11.6-14.6 [facility] Erythrocyte distribution wid th standard deviationOrdered By: Shahid Raya 12-04-2024 Erythrocyte distribution width (RBC) [Ratio] 51.6 fl High 35.1-43.9 [facility] Glomerular filtration rate ( GFR) estimation/1.73 sq m using serum, plasma, or whole bOrdered By: Shahid Raya 12-04-2024 GFR/1.73 sq M.predicted among non-blacks MDRD (S/P/Bld) [Vol rate/Area] 82 mL/min/{1.73_m2} >60 [facility] Comment on above: mL/min/1.73m2 CKD-EP I Creatinine Equation (2020) Hematocrit Auto (Bld) [Volum e fraction]Ordered By: Shahid Raya on 12-04-2024 Hematocrit (Bld) [Volume fraction] 28.4 % Low 37-47 [facility] Hemoglobin measurementOrdere d By: Shahid Raya on 12-04-2024 Hemoglobin (Bld) [Mass/Vol] 9.5 g/dL Low 12.0-15.0 [facility] Immature granulocytes/100 WB C Auto (Bld)Ordered By: Shahid Raya 12-04-2024 Immature granulocytes/100 WBC (Bld) 0.300 % 0.0-0.9 [facility] Comment on above: IG% - Immature Granu locytes (promyelocytes, myelocytes and metamyelocytes) > 1% indicates that a LEFT SHIFT is Present. MCV (mean corpuscular volume ) determinationOrdered By: Shahid Raya 12-04-2024 MCV (RBC) [Entitic vol] 94.7 fL 81-99 [facility] Mean corpuscular hemoglobin (MCH) determinationOrdered By: Shahid Raya 12-04-2024 MCH (RBC) [Entitic mass] 31.7 pg 27.0-32.0 [facility] Mean corpuscular hemoglobin concentration (MCHC) determinationOrdered By: Shahid Raya 12-04-2024 MCHC (RBC) [Mass/Vol] 33.5 g/dL 32-36 [facility] Mean platelet volume determi nationOrdered By: Shahid Raya 12-04-2024 Platelet mean volume (Bld) [Entitic vol] 9.5 fL 6.2-12.0 [facility] Monocyte percentageOrdered B y: Shahid Raya on 12-04-2024 Monocytes/100 WBC (Bld) 6.8 % 0-10 [facility] Neutrophil percentageOrdered By: Shahid Raya 12-04-2024 Neutrophils/100 WBC (Bld) 58.2 % 47-70 [facility] Nucleated red blood cell per centageOrdered By: Shahid Raya on 12-04-2024 Nucleated RBC/100 WBC (Bld) [Ratio] 0 % 0-5 [facility] Platelet countOrdered By: Juan José Raya on 12-04-2024 Platelets (Bld) [#/Vol] 302 10*3/uL 150-450 [facility] Potassium measurement (mass/ volume)Ordered By: Shahid Raya on 12-04-2024 Potassium (Unsp spec) [Mass/Vol] 4.3 mmol/L 3.3-5.1 [facility] RBC Auto (Bld) [#/Vol]Ordere d By: Shahid Raya on 12-04-2024 RBC (Bld) [#/Vol] 3.00 10*6/uL Low 4.2-5.4 [facility] Serum creatinine measurement (mass/volume)Ordered By: Shahid Raya on 12-04-2024 Creatinine [Mass/Vol] 0.75 mg/dL 0.70-1.20 [facility] Serum glucose measurement (m ass/volume)Ordered By: Shahid Raya on 12-04-2024 Glucose [Mass/Vol] 108 mg/dL High 70-[address] [facility] Serum or plasma calcium patricia urement (mass/volume)Ordered By: Shahid Raya on 12-04-2024 Calcium [Mass/Vol] 9.1 mg/dL 7.6-11.[address] [facility] Serum or plasma urea nitroge n measurement (mass/volume)Ordered By: Shahid Raya on 12-04-2024 Urea nitrogen [Mass/Vol] 18 mg/dL 4-19 [facility] Sodium levelOrdered By: Shahid Raya on 12-04-2024 Sodium [Moles/Vol] 137 mmol/L 133-[address] [facility] White blood cell (WBC) count Ordered By: Shahid Raya on 12-04-2024 WBC (Bld) [#/Vol] 7.2 10*3/uL 4.4-11.[address] [facility] Surgery Visit Reporton 12-01 Surgery Visit Report Normal [facility] Absolute lymphocyte countOrd ered By: Shahid Raya on 11-27-2024 Lymphocytes Auto (Unsp spec) [#/Vol] 1.95 10*3/uL 0.83-4.51 [facility] Absolute neutrophil countOrd ered By: Shahid Raya on 11-27-2024 Neutrophils (Bld) [#/Vol] 5.6 10*3/uL 2.0-7.7 [facility] Anion gap in Serum or Plasma Ordered By: Shahid Raya on 11-27-2024 Anion gap [Moles/Vol] 10 mmol/L 5-15 [facility] Automated lymphocyte count a s percentage of total leukocytesOrdered By: Shahid Raya on 11-27-2024 Lymphocytes/100 WBC Auto (Unsp spec) 23.4 % -41 [facility] BUN/creatinine ratioOrdered By: Shahid Raya on 11-27-2024 Urea nitrogen/Creatinine [Mass ratio] 20.9 mg/mg High 10- [facility] Basic Metabolic Profile (BMP )on 11-27-2024 BUN/CRE 20.9 RATIO High - [facility] Comment on above: Performed By: #### L 500.2500, L100.0100 ####[facility] [address] [place], [address] Calcium [Mass/Vol] 9.0 mg/dL Normal 7.6-11.[address] [facility] Comment on above: Performed By: #### L 500.2500, L100.0100 ####[facility] [address] [place], [address] Chloride [Moles/Vol] 104 mmol/L Normal 98-108 [facility] Comment on above: Performed By: #### L 500.2500, L100.0100 ####[facility] [address] [place], [address] CO2 [Moles/Vol] 23.9 mmol/L Normal 21.0-32.0 [facility] Comment on above: Performed By: #### L 500.2500, L100.0100 ####[facility] [address] [place], [address] Creatinine [Mass/Vol] 0.92 mg/dL Normal 0.70-1.20 [facility] Comment on above: Performed By: #### L 500.2500, L100.0100 ####[facility] [address] [place], [address] ECRCL 45.03 ml/min Low 50-250 [facility] Comment on above: Performed By: #### L 500.2500, L100.0100 ####[facility] [address] [place], [address] GAP 10 Normal 5-15 [facility] Comment on above: Performed By: #### L 500.2500, L100.0100 ####[facility] [address] [place], [address] GFR/1.73 sq M.predicted among non-blacks MDRD (S/P/Bld) [Vol rate/Area] 64 mL/min/{1.73_m2} Normal >60 [facility] Comment on above: Result Comment: mL/m in/1.73m2 CKD-EPI Creatinine Equation (2020) Performed By: #### L 500.2500, L100.0100 ####[facility] [address] [place], [address] Glucose [Mass/Vol] 112 mg/dL High 70-[address] [facility] Comment on above: Performed By: #### L 500.2500, L100.0100 ####[facility] [address] [place], [address] Potassium [Moles/Vol] 4.5 mmol/L Normal 3.3-5.1 [facility] Comment on above: Performed By: #### L 500.2500, L100.0100 ####[facility] [address] [place], [address] Sodium [Moles/Vol] 138 mmol/L Normal 133-[address] [facility] Comment on above: Performed By: #### L 500.2500, L100.0100 ####[facility] [address] [place], [address] Urea nitrogen [Mass/Vol] 19 mg/dL Normal 4-19 [facility] Comment on above: Performed By: #### L 500.2500, L100.0100 ####[facility] [address] [place], [address] Basophil percentageOrdered B y: Shahid Raya on 11-27-2024 Basophils/100 WBC (Bld) 0.4 % 0-1 [facility] CBC W/Diff, Automatedon Absolute Lymph 1.95 X10 3/uL Normal 0.83-4.51 [facility] Comment on above: Performed By: #### L 500.2500, L100.0100 ####[facility] [address] [place], [address] Absolute Neut 5.6 X10 3/uL Normal 2.0-7.7 [facility] Comment on above: Performed By: #### L 500.2500, L100.0100 ####[facility] [address] [place], [address] Basophils/100 WBC (Bld) 0.4 % Normal 0-1 [facility] Comment on above: Performed By: #### L 500.2500, L100.0100 ####[facility] [address] [place], [address] Eosinophils/100 WBC (Bld) 1.6 % Normal 0-5 [facility] Comment on above: Performed By: #### L 500.2500, L100.0100 ####[facility] [address] [place], [address] Erythrocyte distribution width (RBC) [Ratio] 14.3 % Normal 11.6-14.6 [facility] Comment on above: Performed By: #### L 500.2500, L100.0100 ####[facility] [address] [place], [address] Hematocrit (Bld) [Volume fraction] 29.9 % Low 37-47 [facility] Comment on above: Performed By: #### L 500.2500, L100.0100 ####[facility] [address] [place], [address] Hemoglobin (Bld) [Mass/Vol] 10.1 g/dL Low 12.0-15.0 [facility] Comment on above: Performed By: #### L 500.2500, L100.0100 ####[facility] [address] [place], [address] IG% 0.600 Normal 0.0-0.9 [facility] Comment on above: Result Comment: IG% - Immature Granulocytes (promyelocytes, myelocytes andmetamyelocytes) > 1% indicates that a LEFT SHIFT is Present. Performed By: #### L 500.2500, L100.0100 ####[facility] [address] [place], [address] Lymphocytes/100 WBC (Bld) 23.4 % Normal 19-41 [facility] Comment on above: Performed By: #### L 500.2500, L100.0100 ####[facility] [address] [place], [address] MCH (RBC) [Entitic mass] 31.4 pg Normal 27.0-32.0 [facility] Comment on above: Performed By: #### L 500.2500, L100.0100 ####[facility] [address] [place], [address] MCHC (RBC) [Mass/Vol] 33.8 g/dL Normal 32-36 [facility] Comment on above: Performed By: #### L 500.2500, L100.0100 ####[facility] [address] [place], [address] MCV (RBC) [Entitic vol] 92.9 fL Normal 81-99 [facility] Comment on above: Performed By: #### L 500.2500, L100.0100 ####[facility] [address] [place], [address] Monocytes/100 WBC (Bld) 6.6 % Normal 0-10 [facility] Comment on above: Performed By: #### L 500.2500, L100.0100 ####[facility] [address] [place], [address] Neutrophils/100 WBC (Bld) 67.4 % Normal 47-70 [facility] Comment on above: Performed By: #### L 500.2500, L100.0100 ####[facility] [address] [place], [address] Nucleated RBC (Bld) [#/Vol] 0 10*3/uL Normal 0-5 [facility] Comment on above: Performed By: #### L 500.2500, L100.0100 ####[facility] [address] [place], [address] Platelet mean volume (Bld) [Entitic vol] 9.6 fL Normal 6.2-12.0 [facility] Comment on above: Performed By: #### L 500.2500, L100.0100 ####[facility] [address] [place], [address] Platelets (Bld) [#/Vol] 302 10*3/uL Normal 150-450 [facility] Comment on above: Performed By: #### L 500.2500, L100.0100 ####[facility] [address] [place], [address] RBC (Bld) [#/Vol] 3.22 10*6/uL Low 4.2-5.4 [facility] Comment on above: Performed By: #### L 500.2500, L100.0100 ####[facility] [address] [place], [address] RDW SD 47.8 fl High 35.1-43.9 [facility] Comment on above: Performed By: #### L 500.2500, L100.0100 ####[facility] [address] [place], [address] WBC (Bld) [#/Vol] 8.4 10*3/uL Normal 4.4-11.[address] [facility] Comment on above: Performed By: #### L 500.2500, L100.0100 ####[facility] [address] [place], [address] Carbon dioxide, total [Moles /volume] in Central venous bloodOrdered By: Shahid Raya on 11-27-2024 CO2 [Moles/Vol] 23.9 mmol/L 21.0-32.0 [facility] Chloride assayOrdered By: Juan José Raya on 11-27-2024 Chloride [Moles/Vol] 104 mmol/L 98-108 [facility] Eosinophil percentageOrdered By: Shahid Raya on 11-27-2024 Eosinophils/100 WBC (Bld) 1.6 % 0-5 [facility] Erythrocyte distribution wid th ratioOrdered By: Shahid Raya on 11-27-2024 Erythrocyte distribution width (RBC) [Ratio] 14.3 % 11.6-14.6 [facility] Erythrocyte distribution wid th standard deviationOrdered By: Shahid Raya on 11-27-2024 Erythrocyte distribution width (RBC) [Ratio] 47.8 fl High 35.1-43.9 [facility] Glomerular filtration rate ( GFR) estimation/1.73 sq m using serum, plasma, or whole bOrdered By: Shahid Raya on 11-27-2024 GFR/1.73 sq M.predicted among non-blacks MDRD (S/P/Bld) [Vol rate/Area] 64 mL/min/{1.73_m2} >60 [facility] Comment on above: mL/min/1.73m2 CKD-EP I Creatinine Equation (2020) Hematocrit Auto (Bld) [Volum e fraction]Ordered By: Shahid Raya on 11-27-2024 Hematocrit (Bld) [Volume fraction] 29.9 % Low 37-47 [facility] Hemoglobin measurementOrdere d By: Shahid Raya on 11-27-2024 Hemoglobin (Bld) [Mass/Vol] 10.1 g/dL Low 12.0-15.0 [facility] Immature granulocytes/100 WB C Auto (Bld)Ordered By: Shahid Raya on 11-27-2024 Immature granulocytes/100 WBC (Bld) 0.600 % 0.0-0.9 [facility] Comment on above: IG% - Immature Granu locytes (promyelocytes, myelocytes and metamyelocytes) > 1% indicates that a LEFT SHIFT is Present. MCV (mean corpuscular volume ) determinationOrdered By: Shahid Raya on 11-27-2024 MCV (RBC) [Entitic vol] 92.9 fL 81-99 [facility] Mean corpuscular hemoglobin (MCH) determinationOrdered By: Shahid Raya 11-27-2024 MCH (RBC) [Entitic mass] 31.4 pg 27.0-32.0 [facility] Mean corpuscular hemoglobin concentration (MCHC) determinationOrdered By: Shahid Raya 11-27-2024 MCHC (RBC) [Mass/Vol] 33.8 g/dL 32-36 [facility] Mean platelet volume determi nationOrdered By: Shahid Raya 11-27-2024 Platelet mean volume (Bld) [Entitic vol] 9.6 fL 6.2-12.0 [facility] Monocyte percentageOrdered B y: Shahid Raya on 11-27-2024 Monocytes/100 WBC (Bld) 6.6 % 0-10 [facility] Neutrophil percentageOrdered By: Shahid Raya 11-27-2024 Neutrophils/100 WBC (Bld) 67.4 % 47-70 [facility] Nucleated red blood cell per centageOrdered By: Shahid Raya on 11-27-2024 Nucleated RBC/100 WBC (Bld) [Ratio] 0 % 0-5 [facility] Platelet countOrdered By: Juan José Raya on 11-27-2024 Platelets (Bld) [#/Vol] 302 10*3/uL 150-450 [facility] Potassium measurement (mass/ volume)Ordered By: Shahid Raya on 11-27-2024 Potassium (Unsp spec) [Mass/Vol] 4.5 mmol/L 3.3-5.1 [facility] RBC Auto (Bld) [#/Vol]Ordere d By: Shahid Raya on 11-27-2024 RBC (Bld) [#/Vol] 3.22 10*6/uL Low 4.2-5.4 [facility] Serum creatinine measurement (mass/volume)Ordered By: Shahid Raya on 11-27-2024 Creatinine [Mass/Vol] 0.92 mg/dL 0.70-1.20 [facility] Serum glucose measurement (m ass/volume)Ordered By: Shahid Raya on 11-27-2024 Glucose [Mass/Vol] 112 mg/dL High 70-[address] [facility] Serum or plasma calcium patricia urement (mass/volume)Ordered By: Shahid Raya on 11-27-2024 Calcium [Mass/Vol] 9.0 mg/dL 7.6-11.[address] [facility] Serum or plasma urea nitroge n measurement (mass/volume)Ordered By: Shahid Raya on 11-27-2024 Urea nitrogen [Mass/Vol] 19 mg/dL 4-19 [facility] Sodium levelOrdered By: Shahid Raya on 11-27-2024 Sodium [Moles/Vol] 138 mmol/L 133-[address] [facility] White blood cell (WBC) count Ordered By: Shahid Raya on 11-27-2024 WBC (Bld) [#/Vol] 8.4 10*3/uL 4.4-11.[address] [facility] Abdomen Single Viewon 2024 Abdomen Single View Normal [facility] Consultation - Surgicalon Consultation - Surgical Normal [facility] Basic Metabolic Profile (BMP )on 11-22-2024 BUN/CRE 16.3 RATIO Normal 10-20 [facility] Comment on above: Performed By: #### L 500.2500 ####[facility] [address] [place], [address] Calcium [Mass/Vol] 9.0 mg/dL Normal 7.6-11.[address] [facility] Comment on above: Performed By: #### L 500.2500 ####[facility] [address] [place], [address] Chloride [Moles/Vol] 104 mmol/L Normal 98-108 [facility] Comment on above: Performed By: #### L 500.2500 ####[facility] [address] [place], [address] CO2 [Moles/Vol] 24.7 mmol/L Normal 21.0-32.0 [facility] Comment on above: Performed By: #### L 500.2500 ####[facility] [address] [place], [address] Creatinine [Mass/Vol] 0.89 mg/dL Normal 0.70-1.20 [facility] Comment on above: Performed By: #### L 500.2500 ####[facility] [address] [place], [address] ECRCL 46.26 ml/min Low 50-250 [facility] Comment on above: Performed By: #### L 500.2500 ####[facility] [address] [place], [address] GAP 10 Normal 5-15 [facility] Comment on above: Performed By: #### L 500.2500 ####[facility] [address] [place], [address] GFR/1.73 sq M.predicted among non-blacks MDRD (S/P/Bld) [Vol rate/Area] 66 mL/min/{1.73_m2} Normal >60 [facility] Comment on above: Result Comment: mL/m in/1.73m2 CKD-EPI Creatinine Equation (2020) Performed By: #### L 500.2500 ####[facility] [address] [place], [address] Glucose [Mass/Vol] 100 mg/dL High 70-[address] [facility] Comment on above: Performed By: #### L 500.2500 ####[facility] [address] [place], [address] Potassium [Moles/Vol] 4.2 mmol/L Normal 3.3-5.1 [facility] Comment on above: Performed By: #### L 500.2500 ####[facility] [address] [place], [address] Sodium [Moles/Vol] 139 mmol/L Normal 133-[address] [facility] Comment on above: Performed By: #### L 500.2500 ####[facility] [address] [place], [address] Urea nitrogen [Mass/Vol] 15 mg/dL Normal 4-19 [facility] Comment on above: Performed By: #### L 500.2500 ####[facility] [address] [place], [address] Basic Metabolic Profile (BMP )on 11-21-2024 BUN/CRE 14.8 RATIO Normal 10-20 [facility] Comment on above: Performed By: #### L 100.0100, L500.2500 ####[facility] [address] [place], [address] Calcium [Mass/Vol] 8.8 mg/dL Normal 7.6-11.[address] [facility] Comment on above: Performed By: #### L 100.0100, L500.2500 ####[facility] [address] [place], [address] Chloride [Moles/Vol] 105 mmol/L Normal 98-108 [facility] Comment on above: Performed By: #### L 100.0100, L500.2500 ####[facility] [address] [place], [address] CO2 [Moles/Vol] 23.4 mmol/L Normal 21.0-32.0 [facility] Comment on above: Performed By: #### L 100.0100, L500.2500 ####[facility] [address] [place], [address] Creatinine [Mass/Vol] 0.82 mg/dL Normal 0.70-1.20 [facility] Comment on above: Performed By: #### L 100.0100, L500.2500 ####[facility] [address] [place], [address] ECRCL 50.20 ml/min Normal 50-250 [facility] Comment on above: Performed By: #### L 100.0100, L500.2500 ####[facility] [address] [place], [address] GAP 11 Normal 5-15 [facility] Comment on above: Performed By: #### L 100.0100, L500.2500 ####[facility] [address] [place], [address] GFR/1.73 sq M.predicted among non-blacks MDRD (S/P/Bld) [Vol rate/Area] 73 mL/min/{1.73_m2} Normal >60 [facility] Comment on above: Result Comment: mL/m in/1.73m2 CKD-EPI Creatinine Equation (2020) Performed By: #### L 100.0100, L500.2500 ####[facility] [address] [place], [address] Glucose [Mass/Vol] 103 mg/dL High 70-[address] [facility] Comment on above: Performed By: #### L 100.0100, L500.2500 ####[facility] [address] [place], [address] Potassium [Moles/Vol] 3.8 mmol/L Normal 3.3-5.1 [facility] Comment on above: Performed By: #### L 100.0100, L500.2500 ####[facility] [address] [place], [address] Sodium [Moles/Vol] 139 mmol/L Normal 133-[address] [facility] Comment on above: Performed By: #### L 100.0100, L500.2500 ####[facility] [address] [place], [address] Urea nitrogen [Mass/Vol] 12 mg/dL Normal 4-19 [facility] Comment on above: Performed By: #### L 100.0100, L500.2500 ####[facility] [address] [place], [address] CBC W/Diff, Automatedon 05-3 -2024 Absolute Lymph 2.03 X10 3/uL Normal 0.83-4.51 [facility] Comment on above: Performed By: #### L 100.0100, L500.2500 ####[facility] [address] [place], [address] Absolute Neut 6.8 X10 3/uL Normal 2.0-7.7 [facility] Comment on above: Performed By: #### L 100.0100, L500.2500 ####[facility] [address] [place], [address] Basophils/100 WBC (Bld) 0.2 % Normal 0-1 [facility] Comment on above: Performed By: #### L 100.0100, L500.2500 ####[facility] [address] [place], [address] Eosinophils/100 WBC (Bld) 1.1 % Normal 0-5 [facility] Comment on above: Performed By: #### L 100.0100, L500.2500 ####[facility] [address] [place], [address] Erythrocyte distribution width (RBC) [Ratio] 13.6 % Normal 11.6-14.6 [facility] Comment on above: Performed By: #### L 100.0100, L500.2500 ####[facility] [address] [place], [address] Hematocrit (Bld) [Volume fraction] 28.9 % Low 37-47 [facility] Comment on above: Performed By: #### L 100.0100, L500.2500 ####[facility] [address] [place], [address] Hemoglobin (Bld) [Mass/Vol] 9.9 g/dL Low 12.0-15.0 [facility] Comment on above: Performed By: #### L 100.0100, L500.2500 ####[facility] [address] [place], [address] IG% 0.400 Normal 0.0-0.9 [facility] Comment on above: Result Comment: IG% - Immature Granulocytes (promyelocytes, myelocytes andmetamyelocytes) > 1% indicates that a LEFT SHIFT is Present. Performed By: #### L 100.0100, L500.2500 ####[facility] [address] [place], [address] Lymphocytes/100 WBC (Bld) 21.6 % Normal 19-41 [facility] Comment on above: Performed By: #### L 100.0100, L500.2500 ####[facility] [address] [place], [address] MCH (RBC) [Entitic mass] 31.1 pg Normal 27.0-32.0 [facility] Comment on above: Performed By: #### L 100.0100, L500.2500 ####[facility] [address] [place], [address] MCHC (RBC) [Mass/Vol] 34.3 g/dL Normal 32-36 [facility] Comment on above: Performed By: #### L 100.0100, L500.2500 ####[facility] [address] [place], [address] MCV (RBC) [Entitic vol] 90.9 fL Normal 81-99 [facility] Comment on above: Performed By: #### L 100.0100, L500.2500 ####[facility] [address] [place], [address] Monocytes/100 WBC (Bld) 4.8 % Normal 0-10 [facility] Comment on above: Performed By: #### L 100.0100, L500.2500 ####[facility] [address] [place], [address] Neutrophils/100 WBC (Bld) 71.9 % High 47-70 [facility] Comment on above: Performed By: #### L 100.0100, L500.2500 ####[facility] [address] [place], [address] Nucleated RBC (Bld) [#/Vol] 0 10*3/uL Normal 0-5 [facility] Comment on above: Performed By: #### L 100.0100, L500.2500 ####[facility] [address] [place], [address] Platelet mean volume (Bld) [Entitic vol] 10.0 fL Normal 6.2-12.0 [facility] Comment on above: Performed By: #### L 100.0100, L500.2500 ####[facility] [address] [place], [address] Platelets (Bld) [#/Vol] 228 10*3/uL Normal 150-450 [facility] Comment on above: Performed By: #### L 100.0100, L500.2500 ####[facility] [address] [place], [address] RBC (Bld) [#/Vol] 3.18 10*6/uL Low 4.2-5.4 [facility] Comment on above: Performed By: #### L 100.0100, L500.2500 ####[facility] [address] [place], [address] RDW SD 45.1 fl High 35.1-43.9 [facility] Comment on above: Performed By: #### L 100.0100, L500.2500 ####[facility] [address] [place], [address] WBC (Bld) [#/Vol] 9.4 10*3/uL Normal 4.4-11.[address] [facility] Comment on above: Performed By: #### L 100.0100, L500.2500 ####[facility] [address] [place], [address] Absolute lymphocyte countOrd ered By: Tiana Wood on 11-20-2024 Lymphocytes Auto (Unsp spec) [#/Vol] 1.92 10*3/uL 0.83-4.51 [facility] Absolute neutrophil countOrd ered By: Tiana Wood on 11-20-2024 Neutrophils (Bld) [#/Vol] 7.4 10*3/uL 2.0-7.7 [facility] Anion gap in Serum or Plasma Ordered By: Tiana Wood on 11-20-2024 Anion gap [Moles/Vol] 8 mmol/L 5- [facility] Automated lymphocyte count a s percentage of total leukocytesOrdered By: Tiana Wood on 11-20-2024 Lymphocytes/100 WBC Auto (Unsp spec) 19.0 % [facility] BUN/creatinine ratioOrdered By: Tiana Wood on 11-20-2024 Urea nitrogen/Creatinine [Mass ratio] 18.8 mg/mg - [facility] Basic Metabolic Profile (BMP )on 11-20-2024 BUN/CRE 18.8 RATIO Normal 10-20 [facility] Comment on above: Performed By: #### L 500.2500 ####[facility] [address] [place], [address] Calcium [Mass/Vol] 8.6 mg/dL Normal 7.6-11.[address] [facility] Comment on above: Performed By: #### L 500.2500 ####[facility] [address] [place], [address] Chloride [Moles/Vol] 106 mmol/L Normal 98-108 [facility] Comment on above: Performed By: #### L 500.2500 ####[facility] [address] [place], [address] CO2 [Moles/Vol] 24.1 mmol/L Normal 21.0-32.0 [facility] Comment on above: Performed By: #### L 500.2500 ####[facility] [address] [place], [address] Creatinine [Mass/Vol] 0.76 mg/dL Normal 0.70-1.20 [facility] Comment on above: Performed By: #### L 500.2500 ####[facility] [address] [place], [address] ECRCL 50.94 ml/min Normal 50-250 [facility] Comment on above: Performed By: #### L 500.2500 ####[facility] [address] [place], [address] GAP 8 Normal 5-15 [facility] Comment on above: Performed By: #### L 500.2500 ####[facility] [address] [place], [address] GFR/1.73 sq M.predicted among non-blacks MDRD (S/P/Bld) [Vol rate/Area] 81 mL/min/{1.73_m2} Normal >60 [facility] Comment on above: Result Comment: mL/m in/1.73m2 CKD-EPI Creatinine Equation (2020) Performed By: #### L 500.2500 ####[facility] [address] [place], [address] Glucose [Mass/Vol] 104 mg/dL High 70-[address] [facility] Comment on above: Performed By: #### L 500.2500 ####[facility] [address] [place], [address] Potassium [Moles/Vol] 3.5 mmol/L Normal 3.3-5.1 [facility] Comment on above: Performed By: #### L 500.2500 ####[facility] [address] [place], [address] Sodium [Moles/Vol] 138 mmol/L Normal 133-[address] [facility] Comment on above: Performed By: #### L 500.2500 ####[facility] [address] [place], [address] Urea nitrogen [Mass/Vol] 14 mg/dL Normal 4-19 [facility] Comment on above: Performed By: #### L 500.2500 ####[facility] [address] [place], [address] Basophil percentageOrdered B y: Tiana Sainzhn on 11-20-2024 Basophils/100 WBC (Bld) 0.2 % 0-1 [facility] CBC W/Diff, Automatedon 10-24 Absolute Lymph 1.92 X10 3/uL Normal 0.83-4.51 [facility] Comment on above: Performed By: #### L 100.0100 ####[facility] [address] [place], [address] Absolute Neut 7.4 X10 3/uL Normal 2.0-7.7 [facility] Comment on above: Performed By: #### L 100.0100 ####[facility] [address] [place], [address] Basophils/100 WBC (Bld) 0.2 % Normal 0-1 [facility] Comment on above: Performed By: #### L 100.0100 ####[facility] [address] [place], [address] Eosinophils/100 WBC (Bld) 0.7 % Normal 0-5 [facility] Comment on above: Performed By: #### L 100.0100 ####[facility] [address] [place], [address] Erythrocyte distribution width (RBC) [Ratio] 13.8 % Normal 11.6-14.6 [facility] Comment on above: Performed By: #### L 100.0100 ####[facility] [address] [place], [address] Hematocrit (Bld) [Volume fraction] 26.5 % Low 37-47 [facility] Comment on above: Performed By: #### L 100.0100 ####[facility] [address] [place], [address] Hemoglobin (Bld) [Mass/Vol] 9.1 g/dL Low 12.0-15.0 [facility] Comment on above: Performed By: #### L 100.0100 ####[facility] [address] [place], [address] IG% 0.500 Normal 0.0-0.9 [facility] Comment on above: Result Comment: IG% - Immature Granulocytes (promyelocytes, myelocytes andmetamyelocytes) > 1% indicates that a LEFT SHIFT is Present. Performed By: #### L 100.0100 ####[facility] [address] [place], [address] Lymphocytes/100 WBC (Bld) 19.0 % Normal 19-41 [facility] Comment on above: Performed By: #### L 100.0100 ####[facility] [address] [place], [address] MCH (RBC) [Entitic mass] 30.6 pg Normal 27.0-32.0 [facility] Comment on above: Performed By: #### L 100.0100 ####[facility] [address] [place], [address] MCHC (RBC) [Mass/Vol] 34.3 g/dL Normal 32-36 [facility] Comment on above: Performed By: #### L 100.0100 ####[facility] [address] [place], [address] MCV (RBC) [Entitic vol] 89.2 fL Normal 81-99 [facility] Comment on above: Performed By: #### L 100.0100 ####[facility] [address] [place], [address] Monocytes/100 WBC (Bld) 6.3 % Normal 0-10 [facility] Comment on above: Performed By: #### L 100.0100 ####[facility] [address] [place], [address] Neutrophils/100 WBC (Bld) 73.3 % High 47-70 [facility] Comment on above: Performed By: #### L 100.0100 ####[facility] [address] [place], [address] Nucleated RBC (Bld) [#/Vol] 0 10*3/uL Normal 0-5 [facility] Comment on above: Performed By: #### L 100.0100 ####[facility] [address] [place], [address] Platelet mean volume (Bld) [Entitic vol] 9.9 fL Normal 6.2-12.0 [facility] Comment on above: Performed By: #### L 100.0100 ####[facility] [address] [place], [address] Platelets (Bld) [#/Vol] 197 10*3/uL Normal 150-450 [facility] Comment on above: Performed By: #### L 100.0100 ####[facility] [address] [place], [address] RBC (Bld) [#/Vol] 2.97 10*6/uL Low 4.2-5.4 [facility] Comment on above: Performed By: #### L 100.0100 ####[facility] [address] [place], [address] RDW SD 44.8 fl High 35.1-43.9 [facility] Comment on above: Performed By: #### L 100.0100 ####[facility] [address] [place], [address] WBC (Bld) [#/Vol] 10.1 10*3/uL Normal 4.4-11.0 [facility] Comment on above: Performed By: #### L 100.0100 ####[facility] [address] [place], [address] Carbon dioxide, total [Moles /volume] in Central venous bloodOrdered By: Tiana Wood on 11-20-2024 CO2 [Moles/Vol] 24.1 mmol/L 21.0-32.0 [facility] Chloride assayOrdered By: Tae Wood on 11-20-2024 Chloride [Moles/Vol] 106 mmol/L 98-108 [facility] Eosinophil percentageOrdered By: Tiana Wood on 11-20-2024 Eosinophils/100 WBC (Bld) 0.7 % 0-5 [facility] Erythrocyte distribution wid th ratioOrdered By: Tiana Wood on 11-20-2024 Erythrocyte distribution width (RBC) [Ratio] 13.8 % 11.6-14.6 [facility] Erythrocyte distribution wid th standard deviationOrdered By: Tiana Wood on 11-20-2024 Erythrocyte distribution width (RBC) [Ratio] 44.8 fl High 35.1-43.9 [facility] Glomerular filtration rate ( GFR) estimation/1.73 sq m using serum, plasma, or whole bOrdered By: Tiana Wood on 11-20-2024 GFR/1.73 sq M.predicted among non-blacks MDRD (S/P/Bld) [Vol rate/Area] 81 mL/min/{1.73_m2} >60 [facility] Comment on above: mL/min/1.73m2 CKD-EP I Creatinine Equation (2020) Hematocrit Auto (Bld) [Volum e fraction]Ordered By: Tiana Wood on 11-20-2024 Hematocrit (Bld) [Volume fraction] 26.5 % Low 37-47 [facility] Hemoglobin measurementOrdere d By: Tiana Wood on 11-20-2024 Hemoglobin (Bld) [Mass/Vol] 9.1 g/dL Low 12.0-15.0 [facility] Immature granulocytes/100 WB C Auto (Bld)Ordered By: Tiana Wood on 11-20-2024 Immature granulocytes/100 WBC (Bld) 0.500 % 0.0-0.9 [facility] Comment on above: IG% - Immature Granu locytes (promyelocytes, myelocytes and metamyelocytes) > 1% indicates that a LEFT SHIFT is Present. MCV (mean corpuscular volume ) determinationOrdered By: Tiana Wood on 11-20-2024 MCV (RBC) [Entitic vol] 89.2 fL 81-99 [facility] Mean corpuscular hemoglobin (MCH) determinationOrdered By: Tiana Wood on 11-20-2024 MCH (RBC) [Entitic mass] 30.6 pg 27.0-32.0 [facility] Mean corpuscular hemoglobin concentration (MCHC) determinationOrdered By: Tiana Wood on 11-20-2024 MCHC (RBC) [Mass/Vol] 34.3 g/dL 32-36 [facility] Mean platelet volume determi nationOrdered By: Tiana Wood on 11-20-2024 Platelet mean volume (Bld) [Entitic vol] 9.9 fL 6.2-12.0 [facility] Monocyte percentageOrdered B y: Tiana Wood on 11-20-2024 Monocytes/100 WBC (Bld) 6.3 % 0-10 [facility] Neutrophil percentageOrdered By: Tiana Wood on 11-20-2024 Neutrophils/100 WBC (Bld) 73.3 % High 47-70 [facility] Nucleated red blood cell per centageOrdered By: Tiana Wood on 11-20-2024 Nucleated RBC/100 WBC (Bld) [Ratio] 0 % 0-5 [facility] Platelet countOrdered By: Tae Wood on 11-20-2024 Platelets (Bld) [#/Vol] 197 10*3/uL 150-450 [facility] Potassium measurement (mass/ volume)Ordered By: Tiana Wood on 11-20-2024 Potassium (Unsp spec) [Mass/Vol] 3.5 mmol/L 3.3-5.1 [facility] RBC Auto (Bld) [#/Vol]Ordere d By: Tiana Wood on 11-20-2024 RBC (Bld) [#/Vol] 2.97 10*6/uL Low 4.2-5.4 [facility] Serum creatinine measurement (mass/volume)Ordered By: Tiana Wood on 11-20-2024 Creatinine [Mass/Vol] 0.76 mg/dL 0.70-1.20 [facility] Serum glucose measurement (m ass/volume)Ordered By: Tiana Wood on 11-20-2024 Glucose [Mass/Vol] 104 mg/dL High 70-[address] [facility] Serum or plasma calcium patricia urement (mass/volume)Ordered By: Tiana Wood on 11-20-2024 Calcium [Mass/Vol] 8.6 mg/dL 7.6-11.[address] [facility] Serum or plasma urea nitroge n measurement (mass/volume)Ordered By: Tiana Wood on 11-20-2024 Urea nitrogen [Mass/Vol] 14 mg/dL 4-19 [facility] Sodium levelOrdered By: Omero Wood on 11-20-2024 Sodium [Moles/Vol] 138 mmol/L 133-[address] [facility] White blood cell (WBC) count Ordered By: Tiana Wood on 11-20-2024 WBC (Bld) [#/Vol] 10.1 10*3/uL 4.4-11.0 [facility] Basic Metabolic Profile (BMP )on 11-19-2024 BUN/CRE 21.3 RATIO High 10-20 [facility] Comment on above: Performed By: #### L 500.2500, L100.0500 ####[facility] [address] [place], [address] Calcium [Mass/Vol] 8.5 mg/dL Normal 7.6-11.[address] [facility] Comment on above: Performed By: #### L 500.2500, L100.0500 ####[facility] [address] [place], [address] Chloride [Moles/Vol] 107 mmol/L Normal 98-108 [facility] Comment on above: Performed By: #### L 500.2500, L100.0500 ####[facility] [address] [place], [address] CO2 [Moles/Vol] 24.2 mmol/L Normal 21.0-32.0 [facility] Comment on above: Performed By: #### L 500.2500, L100.0500 ####[facility] [address] [place], [address] Creatinine [Mass/Vol] 0.92 mg/dL Normal 0.70-1.20 [facility] Comment on above: Performed By: #### L 500.2500, L100.0500 ####[facility] [address] [place], [address] ECRCL 44.28 ml/min Low 50-250 [facility] Comment on above: Performed By: #### L 500.2500, L100.0500 ####[facility] [address] [place], [address] GAP 11 Normal 5-15 [facility] Comment on above: Performed By: #### L 500.2500, L100.0500 ####[facility] [address] [place], [address] GFR/1.73 sq M.predicted among non-blacks MDRD (S/P/Bld) [Vol rate/Area] 64 mL/min/{1.73_m2} Normal >60 [facility] Comment on above: Result Comment: mL/m in/1.73m2 CKD-EPI Creatinine Equation (2020) Performed By: #### L 500.2500, L100.0500 ####[facility] [address] [place], [address] Glucose [Mass/Vol] 111 mg/dL High 70-[address] [facility] Comment on above: Performed By: #### L 500.2500, L100.0500 ####[facility] [address] [place], [address] Potassium [Moles/Vol] 3.1 mmol/L Low 3.3-5.1 [facility] Comment on above: Performed By: #### L 500.2500, L100.0500 ####[facility] [address] [place], [address] Sodium [Moles/Vol] 142 mmol/L Normal 133-[address] [facility] Comment on above: Performed By: #### L 500.2500, L100.0500 ####[facility] [address] [place], [address] Urea nitrogen [Mass/Vol] 20 mg/dL High 4-19 [facility] Comment on above: Performed By: #### L 500.2500, L100.0500 ####[facility] [address] [place], [address] CBC-Complete Blood Cnt No Di ffon 11-19-2024 Erythrocyte distribution width (RBC) [Ratio] 14.0 % Normal 11.6-14.6 [facility] Comment on above: Performed By: #### L 500.2500, L100.0500 ####[facility] [address] [place], [address] Hematocrit (Bld) [Volume fraction] 26.5 % Low 37-47 [facility] Comment on above: Performed By: #### L 500.2500, L100.0500 ####[facility] [address] [place], [address] Hemoglobin (Bld) [Mass/Vol] 9.3 g/dL Low 12.0-15.0 [facility] Comment on above: Performed By: #### L 500.2500, L100.0500 ####[facility] [address] [place], [address] MCH (RBC) [Entitic mass] 31.3 pg Normal 27.0-32.0 [facility] Comment on above: Performed By: #### L 500.2500, L100.0500 ####[facility] [address] [place], [address] MCHC (RBC) [Mass/Vol] 35.1 g/dL Normal 32-36 [facility] Comment on above: Performed By: #### L 500.2500, L100.0500 ####[facility] [address] [place], [address] MCV (RBC) [Entitic vol] 89.2 fL Normal 81-99 [facility] Comment on above: Performed By: #### L 500.2500, L100.0500 ####[facility] [address] [place], [address] Platelet mean volume (Bld) [Entitic vol] 9.9 fL Normal 6.2-12.0 [facility] Comment on above: Performed By: #### L 500.2500, L100.0500 ####[facility] [address] [place], [address] Platelets (Bld) [#/Vol] 174 10*3/uL Normal 150-450 [facility] Comment on above: Performed By: #### L 500.2500, L100.0500 ####[facility] [address] [place], [address] RBC (Bld) [#/Vol] 2.97 10*6/uL Low 4.2-5.4 [facility] Comment on above: Performed By: #### L 500.2500, L100.0500 ####[facility] [address] [place], [address] RDW SD 45.4 fl High 35.1-43.9 [facility] Comment on above: Performed By: #### L 500.2500, L100.0500 ####[facility] [address] [place], [address] WBC (Bld) [#/Vol] 9.1 10*3/uL Normal 4.4-11.[address] [facility] Comment on above: Performed By: #### L 500.2500, L100.0500 ####[facility] [address] [place], [address] Hemoglobinon 11-19-2024 Hemoglobin (Bld) [Mass/Vol] 8.9 g/dL Low 12.0-15.0 [facility] Comment on above: Performed By: #### L 100.1300 ####[facility] [address] [place], [address] BRCon 11-18-2024 RC Normal [facility] Comment on above: Result Comment: [id number] AP RC TRANSFUSED 11/18/242006 Performed By: #### B TS, BR ####[facility] [address] [place], [address] Basic Metabolic Profile (BMP )on 11-18-2024 BUN/CRE 21.7 RATIO High 10-20 [facility] Comment on above: Performed By: #### L 100.0100, L500.2500, L501.5200, L501.2300 ####[facility] [address] [place], [address] Calcium [Mass/Vol] 8.3 mg/dL Normal 7.6-11.[address] [facility] Comment on above: Performed By: #### L 100.0100, L500.2500, L501.5200, L501.2300 ####[facility] [address] [place], [address] Chloride [Moles/Vol] 102 mmol/L Normal 98-108 [facility] Comment on above: Performed By: #### L 100.0100, L500.2500, L501.5200, L501.2300 ####[facility] [address] [place], [address] CO2 [Moles/Vol] 23.8 mmol/L Normal 21.0-32.0 [facility] Comment on above: Performed By: #### L 100.0100, L500.2500, L501.5200, L501.2300 ####[facility] [address] [place], [address] Creatinine [Mass/Vol] 0.92 mg/dL Normal 0.70-1.20 [facility] Comment on above: Performed By: #### L 100.0100, L500.2500, L501.5200, L501.2300 ####[facility] [address] [place], [address] ECRCL 44.03 ml/min Low 50-250 [facility] Comment on above: Performed By: #### L 100.0100, L500.2500, L501.5200, L501.2300 ####[facility] [address] [place], [address] GAP 11 Normal 5-15 [facility] Comment on above: Performed By: #### L 100.0100, L500.2500, L501.5200, L501.2300 ####[facility] [address] [place], [address] GFR/1.73 sq M.predicted among non-blacks MDRD (S/P/Bld) [Vol rate/Area] 64 mL/min/{1.73_m2} Normal >60 [facility] Comment on above: Result Comment: mL/m in/1.73m2 CKD-EPI Creatinine Equation (2020) Performed By: #### L 100.0100, L500.2500, L501.5200, L501.2300 ####[facility] [address] [place], [address] Glucose [Mass/Vol] 125 mg/dL High 70-[address] [facility] Comment on above: Performed By: #### L 100.0100, L500.2500, L501.5200, L501.2300 ####[facility] [address] [place], [address] Potassium [Moles/Vol] 3.1 mmol/L Low 3.3-5.1 [facility] Comment on above: Performed By: #### L 100.0100, L500.2500, L501.5200, L501.2300 ####[facility] [address] [place], [address] Sodium [Moles/Vol] 137 mmol/L Normal 133-[address] [facility] Comment on above: Performed By: #### L 100.0100, L500.2500, L501.5200, L501.2300 ####[facility] [address] [place], [address] Urea nitrogen [Mass/Vol] 20 mg/dL High 4-19 [facility] Comment on above: Performed By: #### L 100.0100, L500.2500, L501.5200, L501.2300 ####[facility] [address] [place], [address] CBC W/Diff, Automatedon 05-2 Absolute Lymph 1.24 X10 3/uL Normal 0.83-4.51 [facility] Comment on above: Performed By: #### L 100.0100, L500.2500, L501.5200, L501.2300 ####[facility] [address] [place], [address] Absolute Neut 9.5 X10 3/uL High 2.0-7.7 [facility] Comment on above: Performed By: #### L 100.0100, L500.2500, L501.5200, L501.2300 ####[facility] [address] [place], [address] Basophils/100 WBC (Bld) 0.2 % Normal 0-1 [facility] Comment on above: Performed By: #### L 100.0100, L500.2500, L501.5200, L501.2300 ####[facility] [address] [place], [address] Eosinophils/100 WBC (Bld) 0.0 % Normal 0-5 [facility] Comment on above: Performed By: #### L 100.0100, L500.2500, L501.5200, L501.2300 ####[facility] [address] [place], [address] Erythrocyte distribution width (RBC) [Ratio] 12.9 % Normal 11.6-14.6 [facility] Comment on above: Performed By: #### L 100.0100, L500.2500, L501.5200, L501.2300 ####[facility] [address] [place], [address] Hematocrit (Bld) [Volume fraction] 22.7 % Low 37-47 [facility] Comment on above: Performed By: #### L 100.0100, L500.2500, L501.5200, L501.2300 ####[facility] [address] [place], [address] Hemoglobin (Bld) [Mass/Vol] 8.2 g/dL Low 12.0-15.0 [facility] Comment on above: Performed By: #### L 100.0100, L500.2500, L501.5200, L501.2300 ####[facility] [address] [place], [address] IG% 0.800 Normal 0.0-0.9 [facility] Comment on above: Result Comment: IG% - Immature Granulocytes (promyelocytes, myelocytes andmetamyelocytes) > 1% indicates that a LEFT SHIFT is Present. Performed By: #### L 100.0100, L500.2500, L501.5200, L501.2300 ####[facility] [address] [place], [address] Lymphocytes/100 WBC (Bld) 10.8 % Low 19-41 [facility] Comment on above: Performed By: #### L 100.0100, L500.2500, L501.5200, L501.2300 ####[facility] [address] [place], [address] MCH (RBC) [Entitic mass] 31.7 pg Normal 27.0-32.0 [facility] Comment on above: Performed By: #### L 100.0100, L500.2500, L501.5200, L501.2300 ####[facility] [address] [place], [address] MCHC (RBC) [Mass/Vol] 36.1 g/dL High 32-36 [facility] Comment on above: Performed By: #### L 100.0100, L500.2500, L501.5200, L501.2300 ####[facility] [address] [place], [address] MCV (RBC) [Entitic vol] 87.6 fL Normal 81-99 [facility] Comment on above: Performed By: #### L 100.0100, L500.2500, L501.5200, L501.2300 ####[facility] [address] [place], [address] Monocytes/100 WBC (Bld) 6.0 % Normal 0-10 [facility] Comment on above: Performed By: #### L 100.0100, L500.2500, L501.5200, L501.2300 ####[facility] [address] [place], [address] Neutrophils/100 WBC (Bld) 82.2 % High 47-70 [facility] Comment on above: Performed By: #### L 100.0100, L500.2500, L501.5200, L501.2300 ####[facility] [address] [place], [address] Nucleated RBC (Bld) [#/Vol] 0 10*3/uL Normal 0-5 [facility] Comment on above: Performed By: #### L 100.0100, L500.2500, L501.5200, L501.2300 ####[facility] [address] [place], [address] Platelet mean volume (Bld) [Entitic vol] 9.6 fL Normal 6.2-12.0 [facility] Comment on above: Performed By: #### L 100.0100, L500.2500, L501.5200, L501.2300 ####[facility] [address] [place], [address] Platelets (Bld) [#/Vol] 214 10*3/uL Normal 150-450 [facility] Comment on above: Performed By: #### L 100.0100, L500.2500, L501.5200, L501.2300 ####[facility] [address] [place], [address] RBC (Bld) [#/Vol] 2.59 10*6/uL Low 4.2-5.4 [facility] Comment on above: Performed By: #### L 100.0100, L500.2500, L501.5200, L501.2300 ####[facility] [address] [place], [address] RDW SD 41.2 fl Normal 35.1-43.9 [facility] Comment on above: Performed By: #### L 100.0100, L500.2500, L501.5200, L501.2300 ####[facility] [address] [place], [address] WBC (Bld) [#/Vol] 11.5 10*3/uL High 4.4-11.0 [facility] Comment on above: Performed By: #### L 100.0100, L500.2500, L501.5200, L501.2300 ####[facility] [address] [place], [address] Hemoglobinon 11-18-2024 Hemoglobin (Bld) [Mass/Vol] 7.8 g/dL Low 12.0-15.0 [facility] Comment on above: Performed By: #### L 100.1300 ####[facility] [address] [place], [address] Magnesiumon 11-18-2024 Magnesium [Mass/Vol] 1.7 mg/dL Normal 1.5-2.2 [facility] Comment on above: Performed By: #### L 100.0100, L500.2500, L501.5200, L501.2300 ####[facility] [address] [place], [address] Magnesium measurement (mass/ volume)Ordered By: Crow Dc on 11-18-2024 Magnesium (Unsp spec) [Mass/Vol] 1.7 mg/dL 1.5-2.2 [facility] Phosphoruson 11-18-2024 Phosphate [Mass/Vol] 3.7 mg/dL Normal 2.7-4.5 [facility] Comment on above: Performed By: #### L 100.0100, L500.2500, L501.5200, L501.2300 ####[facility] [address] [place], [address] Type AND Screenon 11-18-2024 Ab SCREEN GEL Negative Normal [facility] Comment on above: Order Comment: CMV N EG? NNumber of units to transfuse: 1Reason for Ordering Blood: AcuteAre the blood/blood products to be transfused? YIs the patient having/had surgery? Dennis Collins Performed By: #### B ANNALEE, [facility] ####[facility] [address] [place], [address] ACT Activated Clotting Timeo n 11-17-2024 ACTk CLOT TIME 250 sec High 74-137 [facility] Comment on above: Performed By: #### L 9100.0100 ####[facility] [address] [place], [address] ACTk CLOT TIME 268 sec High 74-137 [facility] Comment on above: Performed By: #### L 9100.0100 ####[facility] [address] [place], [address] ACTk CLOT TIME 222 sec High 74-137 [facility] Comment on above: Performed By: #### L 9100.0100 ####[facility] [address] [place], [address] ACTk CLOT TIME 320 sec High 74-137 [facility] Comment on above: Performed By: #### L 9100.0100 ####[facility] [address] [place], [address] ACTk CLOT TIME 239 sec High 74-137 [facility] Comment on above: Performed By: #### L 9100.0100 ####[facility] [address] [place], [address] ACTk CLOT TIME 251 sec High 74-137 [facility] Comment on above: Performed By: #### L 9100.0100 ####[facility] [address] [place], [address] Decalcification bone/plaqueo n 11-17-2024 Decalcification bone/plaque Normal [facility] Comment on above: Performed By: #### P DEC ####[facility] [address] [place], [address] Fluoroscopy 1 Hr or Lesson 0 11-17-2024 Fluoroscopy 1 Hr or Less Normal [facility] MR/POSTOP.ANEon 11-17-2024 MR/POSTOP.ANE Normal [facility] MR/AZKBVOVZ8ss 11-17-2024 MR/POSTOPAN2 Normal [facility] Operative Reporton Operative Report Normal [facility] Emergency Department Summary on 11-12-2024 Emergency Department Summary Normal [facility] Arterial study reportOrdered By: Crow Dc on 11-05-2024 Noninvasive arteriosclerosis study report [facility] [address] [place] [address] Lower Ext Art Exam w/o Exercis 11/04/24 0829 MR#: [id number] Acct: [id number] Name: ANA JIMENEZ Rep #:[id number] : 1945 78 From: Crow Jurado Attending Dr: Dr. Crow Dc MD S tatus: REG CLI Ordering Dr: Crow Dc MD Date: 05/ 14/25 Location: [facility] Sex: F C Admitted: Reason [...] Hoang Grant M.D. Performed By: ARIK KESSLER [facility] 11/05/24 0747 Date _ Crow Dc MD CC: Dr. Crow Dc MD; Dr. Jolanta Grant MD ~ Date Dictated: 11/04/24828 Date Transcribed: 11/05/24746 Playground Official: Signed [facility] Work Phone: Electrocardiogram reportOrde red By: Akin Carbajal on 11-05-2024 EKG study [facility] [address] [place] [address] 12 Lead EKG 11/04/24836 MR#: [id number] Acct: [id number] Name: ANA JIMENEZ Rep #:[id number] : 1945 78 From: Akin poe MD Attending Dr: Dr. Crow Dc MD S tatus: PRE IN Ordering Dr: Tobin Roth MD Date: 11/04/24 Location: [facility] Sex: F C Admitted: Test Reason : PREOP Blood Pressure : */* mmHG Vent. Rate : 60 BPM Atrial Rate : 60 BPM P-R Int : 94 ms QRS Dur : 150 ms QT Int : 504 ms P-R-T Axes : 95 65 103 degrees QTcB Int : 504 ms AV sequential or dual chamber electronic pacemaker Confirmed by Akin Carbajal ([id number]), editor continuity and script LURDES DOVER ([id number]) on 11/05/2024 9:37:15 AM Referred By: Crow Dc Confirmed By: Akin Carbajal 11/05/24 0937 Date _ Akin Carbajal MD CC: Dr. Tobin Roth MD; Dr. Crow Dc MD; Dr. Jolanta Grant MD ~ Signed [facility] Work Phone: 12 Lead EKGon 11-04-2024 12 Lead EKG Normal [facility] Telephone (FAMMAS) ANA JIMENEZ ([id number]) 1945 F Date Time Provider Department 11/04/24 JOLANTA GRANT During your visit today, we recorded the [...] Status:Closed by DAYANARA SHETTY LAUREN on 11/04/24 [facility] Lower Ext Art Exam w/o Exerc mily 11-04-2024 Lower Ext Art Exam w/o Exercis Normal [facility] MR/PAT.ANEon 11-04-2024 MR/PAT.ANE Normal [facility] MR/BMS.BVSon 10-22-2024 MR/BMS.BVS Normal [facility] Urine Cultureon 10-20-2024 [facility] Mixed Gram Pos Gram Neg Org [place] Count 50,000-80,000 MIXC Mixed contaminants. Submit a new specimen if indicated. Normal [facility] Comment on above: Performed By: #### M 100.2200 ####[facility] [address] [place], [place], [address] Absolute lymphocyte countOrd ered By: Nikita Pearson on 10-18-2024 Lymphocytes Auto (Unsp spec) [#/Vol] 2.42 10*3/uL 0.83-4.51 [facility] Absolute neutrophil countOrd ered By: Nikita Pearson on 10-18-2024 Neutrophils (Bld) [#/Vol] 5.0 10*3/uL 2.0-7.7 [facility] Anion gap in Serum or Plasma Ordered By: Nikita Pearson on 10-18-2024 Anion gap [Moles/Vol] 14 mmol/L - [facility] Automated lymphocyte count a s percentage of total leukocytesOrdered By: Nikita Pearson on 10-18-2024 Lymphocytes/100 WBC Auto (Unsp spec) 30.5 % - [facility] BUN/creatinine ratioOrdered By: Nikita Pearson on 10-18-2024 Urea nitrogen/Creatinine [Mass ratio] 19.1 mg/mg - [facility] Basic Metabolic Profile (BMP )on 10-18-2024 BUN/CRE 19.1 RATIO Normal 04-12 [facility] Comment on above: Performed By: #### L 100.0100, L501.3620, L500.2500 ####[facility] [address] [place], [address] Calcium [Mass/Vol] 9.6 mg/dL Normal 7.6-11.[address] [facility] Comment on above: Performed By: #### L 100.0100, L501.3620, L500.2500 ####[facility] [address] [place], [address] Chloride [Moles/Vol] 102 mmol/L Normal 98-108 [facility] Comment on above: Performed By: #### L 100.0100, L501.3620, L500.2500 ####[facility] [address] [place], [address] CO2 [Moles/Vol] 22.2 mmol/L Normal 21.0-32.0 [facility] Comment on above: Performed By: #### L 100.0100, L501.3620, L500.2500 ####[facility] [address] [place], [address] Creatinine [Mass/Vol] 1.16 mg/dL Normal 0.70-1.20 [facility] Comment on above: Performed By: #### L 100.0100, L501.3620, L500.2500 ####[facility] [address] [place], [address] ECRCL 35.76 ml/min Low 50-250 [facility] Comment on above: Performed By: #### L 100.0100, L501.3620, L500.2500 ####[facility] [address] [place], [address] GAP 14 Normal 5-15 [facility] Comment on above: Performed By: #### L 100.0100, L501.3620, L500.2500 ####[facility] [address] [place], [address] GFR/1.73 sq M.predicted among non-blacks MDRD (S/P/Bld) [Vol rate/Area] 49 mL/min/{1.73_m2} Low >60 [facility] Comment on above: Result Comment: mL/m in/1.73m2 CKD-EPI Creatinine Equation (2020) Performed By: #### L 100.0100, L501.3620, L500.2500 ####[facility] [address] [place], [address] Glucose [Mass/Vol] 120 mg/dL High 70-[address] [facility] Comment on above: Performed By: #### L 100.0100, L501.3620, L500.2500 ####[facility] [address] [place], [address] Potassium [Moles/Vol] 4.4 mmol/L Normal 3.3-5.1 [facility] Comment on above: Performed By: #### L 100.0100, L501.3620, L500.2500 ####[facility] [address] [place], [address] Sodium [Moles/Vol] 138 mmol/L Normal 133-[address] [facility] Comment on above: Performed By: #### L 100.0100, L501.3620, L500.2500 ####[facility] [address] [place], [address] Urea nitrogen [Mass/Vol] 22 mg/dL High 4-19 [facility] Comment on above: Performed By: #### L 100.0100, L501.3620, L500.2500 ####[facility] [address] [place], [address] Basophil percentageOrdered B y: Nikita Pearson on 10-18-2024 Basophils/100 WBC (Bld) 0.5 % 0-1 [facility] Bilirubin Test strip Ql (U)O rdered By: Nikita Pearson on 10-18-2024 Bilirubin Ql (U) Negative Negative [facility] CBC W/Diff, Automatedon 09-23 Absolute Lymph 2.42 X10 3/uL Normal 0.83-4.51 [facility] Comment on above: Performed By: #### L 100.0100, L501.3620, L500.2500 ####[facility] [address] [place], [address] Absolute Neut 5.0 X10 3/uL Normal 2.0-7.7 [facility] Comment on above: Performed By: #### L 100.0100, L501.3620, L500.2500 ####[facility] [address] [place], [address] Basophils/100 WBC (Bld) 0.5 % Normal 0-1 [facility] Comment on above: Performed By: #### L 100.0100, L501.3620, L500.2500 ####[facility] [address] [place], [address] Eosinophils/100 WBC (Bld) 1.5 % Normal 0-5 [facility] Comment on above: Performed By: #### L 100.0100, L501.3620, L500.2500 ####[facility] [address] [place], [address] Erythrocyte distribution width (RBC) [Ratio] 13.5 % Normal 11.6-14.6 [facility] Comment on above: Performed By: #### L 100.0100, L501.3620, L500.2500 ####[facility] [address] [place], [address] Hematocrit (Bld) [Volume fraction] 37.6 % Normal 37-47 [facility] Comment on above: Performed By: #### L 100.0100, L501.3620, L500.2500 ####[facility] [address] [place], [address] Hemoglobin (Bld) [Mass/Vol] 13.0 g/dL Normal 12.0-15.0 [facility] Comment on above: Performed By: #### L 100.0100, L501.3620, L500.2500 ####[facility] [address] [place], [address] IG% 0.300 Normal 0.0-0.9 [facility] Comment on above: Result Comment: IG% - Immature Granulocytes (promyelocytes, myelocytes andmetamyelocytes) > 1% indicates that a LEFT SHIFT is Present. Performed By: #### L 100.0100, L501.3620, L500.2500 ####[facility] [address] [place], [address] Lymphocytes/100 WBC (Bld) 30.5 % Normal 19-41 [facility] Comment on above: Performed By: #### L 100.0100, L501.3620, L500.2500 ####[facility] [address] [place], [address] MCH (RBC) [Entitic mass] 31.6 pg Normal 27.0-32.0 [facility] Comment on above: Performed By: #### L 100.0100, L501.3620, L500.2500 ####[facility] [address] [place], [address] MCHC (RBC) [Mass/Vol] 34.6 g/dL Normal 32-36 [facility] Comment on above: Performed By: #### L 100.0100, L501.3620, L500.2500 ####[facility] [address] [place], [address] MCV (RBC) [Entitic vol] 91.3 fL Normal 81-99 [facility] Comment on above: Performed By: #### L 100.0100, L501.3620, L500.2500 ####[facility] [address] [place], [address] Monocytes/100 WBC (Bld) 4.4 % Normal 0-10 [facility] Comment on above: Performed By: #### L 100.0100, L501.3620, L500.2500 ####[facility] [address] [place], [address] Neutrophils/100 WBC (Bld) 62.8 % Normal 47-70 [facility] Comment on above: Performed By: #### L 100.0100, L501.3620, L500.2500 ####[facility] [address] [place], [address] Nucleated RBC (Bld) [#/Vol] 0 10*3/uL Normal 0-5 [facility] Comment on above: Performed By: #### L 100.0100, L501.3620, L500.2500 ####[facility] [address] [place], [address] Platelet mean volume (Bld) [Entitic vol] 11.7 fL Normal 6.2-12.0 [facility] Comment on above: Performed By: #### L 100.0100, L501.3620, L500.2500 ####[facility] [address] [place], [address] Platelets (Bld) [#/Vol] 170 10*3/uL Normal 150-450 [facility] Comment on above: Performed By: #### L 100.0100, L501.3620, L500.2500 ####[facility] [address] [place], [address] RBC (Bld) [#/Vol] 4.12 10*6/uL Low 4.2-5.4 [facility] Comment on above: Performed By: #### L 100.0100, L501.3620, L500.2500 ####[facility] [address] [place], [address] RDW SD 45.2 fl High 35.1-43.9 [facility] Comment on above: Performed By: #### L 100.0100, L501.3620, L500.2500 ####[facility] [address] [place], [address] WBC (Bld) [#/Vol] 7.9 10*3/uL Normal 4.4-11.[address] [facility] Comment on above: Performed By: #### L 100.0100, L501.3620, L500.2500 ####[facility] [address] [place], [address] CPK Total, Creatine Kinaseon 10-18-2024 CPK TOTAL 48 U/L Normal 24-195 [facility] Comment on above: Performed By: #### L 100.0100, L501.3620, L500.2500 ####[facility] [address] [place], [address] CTA Abd w/Runoff W/WO Contra ston 10-18-2024 CTA Abd w/Runoff W/WO Contrast Normal [facility] Carbon dioxide, total [Moles /volume] in Central venous bloodOrdered By: Nikita Pearson on 10-18-2024 CO2 [Moles/Vol] 22.2 mmol/L 21.0-32.0 [facility] Chloride assayOrdered By: Mandie Pearson on 10-18-2024 Chloride [Moles/Vol] 102 mmol/L 98-108 [facility] Emergency Department Summary on 10-18-2024 Emergency Department Summary Normal [facility] Eosinophil percentageOrdered By: Nikita Pearson on 10-18-2024 Eosinophils/100 WBC (Bld) 1.5 % 0-5 [facility] Erythrocyte distribution wid th ratioOrdered By: Nikita Pearson on 10-18-2024 Erythrocyte distribution width (RBC) [Ratio] 13.5 % 11.6-14.6 [facility] Erythrocyte distribution wid th standard deviationOrdered By: Nikita Pearson on 10-18-2024 Erythrocyte distribution width (RBC) [Ratio] 45.2 fl High 35.1-43.9 [facility] Glomerular filtration rate ( GFR) estimation/1.73 sq m using serum, plasma, or whole bOrdered By: Nikita Pearson on 10-18-2024 GFR/1.73 sq M.predicted among non-blacks MDRD (S/P/Bld) [Vol rate/Area] 49 mL/min/{1.73_m2} Low >60 [facility] Comment on above: mL/min/1.73m2 CKD-EP I Creatinine Equation (2020) Hematocrit Auto (Bld) [Volum e fraction]Ordered By: Niktia Pearson on 10-18-2024 Hematocrit (Bld) [Volume fraction] 37.6 % 37-47 [facility] Hemoglobin measurementOrdere d By: Nikita Pearson on 10-18-2024 Hemoglobin (Bld) [Mass/Vol] 13.0 g/dL 12.0-15.0 [facility] Immature granulocytes/100 WB C Auto (Bld)Ordered By: Nikita Pearson on 10-18-2024 Immature granulocytes/100 WBC (Bld) 0.300 % 0.0-0.9 [facility] Comment on above: IG% - Immature Granu locytes (promyelocytes, myelocytes and metamyelocytes) > 1% indicates that a LEFT SHIFT is Present. International normalized rat io (INR) calculationOrdered By: Nikita Pearson on 10-18-2024 INR Coag (Bld) [Relative time] 1.0 {INR} [facility] Ketones Test strip Ql (U)Ord ered By: Nikita Pearson on 10-18-2024 Ketones Ql (U) Negative Negative [facility] MCV (mean corpuscular volume ) determinationOrdered By: Nikita Pearson on 10-18-2024 MCV (RBC) [Entitic vol] 91.3 fL 81-99 [facility] Mean corpuscular hemoglobin (MCH) determinationOrdered By: Nikita Pearson on 10-18-2024 MCH (RBC) [Entitic mass] 31.6 pg 27.0-32.0 [facility] Mean corpuscular hemoglobin concentration (MCHC) determinationOrdered By: Nikita Pearson on 10-18-2024 MCHC (RBC) [Mass/Vol] 34.6 g/dL 32-36 [facility] Mean platelet volume determi nationOrdered By: Nikita Pearson on 10-18-2024 Platelet mean volume (Bld) [Entitic vol] 11.7 fL 6.2-12.0 [facility] Microscopic analysis of urin e for red blood cells (RBC)Ordered By: Nikita Pearson on 10-18-2024 Microscopic analysis of urine for red blood cells (RBC) 0-5 SEEN /hpf 0-5 [facility] Monocyte percentageOrdered B y: Nikita Pearson on 10-18-2024 Monocytes/100 WBC (Bld) 4.4 % 0-10 [facility] Mucus LM Ql (Urine sed)Order ed By: Nikita Pearson on 10-18-2024 Mucus Ql (Urine sed) 0 SEEN /hpf [facility] Neutrophil percentageOrdered By: Nikita Pearson on 10-18-2024 Neutrophils/100 WBC (Bld) 62.8 % 47-70 [facility] Nitrite Test strip Ql (U)Ord ered By: Nikita Pearson on 10-18-2024 Nitrite Ql (U) Negative Negative [facility] Nucleated red blood cell per centageOrdered By: Nikita Paerson on 10-18-2024 Nucleated RBC/100 WBC (Bld) [Ratio] 0 % 0-5 [facility] Platelet countOrdered By: Mandie ul Michel on 10-18-2024 Platelets (Bld) [#/Vol] 170 10*3/uL 150-450 [facility] Potassium measurement (mass/ volume)Ordered By: Nikita Pearson on 10-18-2024 Potassium (Unsp spec) [Mass/Vol] 4.4 mmol/L 3.3-5.1 [facility] Protein Test strip Ql (U)Ord ered By: Nikita Pearson on 10-18-2024 Protein Ql (U) 15 mg/dl High Negative [facility] Prothrombin Time w/INRon INR Coag (PPP) [Relative time] 1.0 {INR} Normal [facility] Comment on above: Performed By: #### L 300.3900 ####[facility] [id number] [place], [place], [id number] PT Coag (PPP) [Time] 13.1 s Normal 11.7-14.9 [facility] Comment on above: Performed By: #### L 300.3900 ####[facility] [id number] [place], [address] Prothrombin timeOrdered By: Nikita Pearson on 10-18-2024 PT Coag (PPP) [Time] 13.1 s 11.7-14.9 [facility] RBC Auto (Bld) [#/Vol]Ordere d By: Nikita Pearson on 10-18-2024 RBC (Bld) [#/Vol] 4.12 10*6/uL Low 4.2-5.4 [facility] Serum creatinine measurement (mass/volume)Ordered By: Nikita Pearson on 10-18-2024 Creatinine [Mass/Vol] 1.16 mg/dL 0.70-1.20 [facility] Serum glucose measurement (m ass/volume)Ordered By: Nikita Pearson on 10-18-2024 Glucose [Mass/Vol] 120 mg/dL High 70-[address] [facility] Serum or plasma calcium patricia urement (mass/volume)Ordered By: Nikita Pearson on 10-18-2024 Calcium [Mass/Vol] 9.6 mg/dL 7.6-11.[address] [facility] Serum or plasma creatine kin ase activityOrdered By: Nikita Pearson on 10-18-2024 CK [Catalytic activity/Vol] 48 U/L 24-195 [facility] Serum or plasma urea nitroge n measurement (mass/volume)Ordered By: Nikita Pearson on 10-18-2024 Urea nitrogen [Mass/Vol] 22 mg/dL High 4-19 [facility] Sodium levelOrdered By: Nikita Pearson on 10-18-2024 Sodium [Moles/Vol] 138 mmol/L 133-[address] [facility] Squamous epithelial cells de tection in urine sediment by light microscopyOrdered By: Nikita Pearson on 10-18-2024 Epithelial cells.squamous LM Ql (Urine sed) 0-5 SEEN /hpf 5-10 [facility] Urinalysis, Completeon 10-18 BACTERIA 1+ /hpf Normal None Seen [facility] Comment on above: Order Comment: ORALIA CTOR TO SPECIFY Performed By: #### L [id number] ####[facility] [id number] [place], [address] EPI,SQUAMOUS 0-5 SEEN Normal 5-10 [facility] Comment on above: Order Comment: ORALIA CTOR TO SPECIFY Performed By: #### L [id number] ####[facility] [id number] [place], [address] RBC 0-5 SEEN Normal 0-5 [facility] Comment on above: Order Comment: ORALIA CTOR TO SPECIFY Performed By: #### L [id number] ####[facility] [id number] [place], [address] WBC 0-5 SEEN Normal 0-5 [facility] Comment on above: Order Comment: ORALIA CTOR TO SPECIFY Performed By: #### L [id number] ####[facility] [id number] [place], [address] Mucus Ql (Urine sed) 0 SEEN Normal [facility] Comment on above: Order Comment: ORALIA CTOR TO SPECIFY Performed By: #### L [id number] ####[facility] [id number] [place], [address] Urine clarityOrdered By: Gricel Pearson on 10-18-2024 Clarity (U) Clear Clear [facility] Urine color determinationOrd ered By: Nikita Pearson on 10-18-2024 Color (U) Yellow Yellow [facility] Urine cultureOrdered By: Gricel Pearson on 10-18-2024 Bacteria identified Cx Nom (U) Mixed Gram Pos & Gram Neg Org Abnormal [facility] Urine glucose detectionOrder ed By: Nikita Pearson on 10-18-2024 Glucose Ql (U) Normal mg/dl Normal [facility] Urine leukocyte esterase det ection by dipstickOrdered By: Nikita Pearson on 10-18-2024 Leukocyte esterase Test strip Ql (U) 100 /ul High Negative [facility] Urine pHOrdered By: Nikita agustin on 10-18-2024 pH (U) 6.0 [pH] 5.0 - 8.0 [facility] Urine sediment bacteria coun t by microscopy (number/high power field)Ordered By: Nikita Pearson on 10-18-2024 Bacteria LM.HPF (Urine sed) [#/Area] 1 /[HPF] None Seen [facility] Urine specific gravity measu rementOrdered By: Nikita Pearson on 10-18-2024 Specific gravity (U) [Rel density] 1.010 1.002-1.03 0 [facility] Urine urobilinogen measureme ntOrdered By: Nikita Pearson on 10-18-2024 Urobilinogen Ql (U) Normal mg/dl Normal [facility] White blood cell (WBC) count Ordered By: Nikita Pearson on 10-18-2024 WBC (Bld) [#/Vol] 7.9 10*3/uL 4.4-11.[address] [facility] White blood cell countOrdere d By: Nikita Pearson on 10-18-2024 White blood cell count 0-5 SEEN /hpf 0-5 [facility] Cardiology Visit Reporton Cardiology Visit Report Normal [facility] Pacemaker Checkon 07-02-2024 Pacemaker Check Normal [facility] Basophil percentageOrdered B y: Hira Paty on 10-16-2022 Bilirubin [Mass/Vol] 0.60 mg/dL 0.20-1.00 [facility] Comment on above: For patients on eltr ombopag therapy, use of Dimension [place] TBIL is not recommended. Cholesterol [Mass/Vol] 190 mg/dL <200 [facility] Comment on above: <200 mg/dL Desirable 200-240 mg/dL Borderline >240 mg/dL High Risk Protein [Mass/Vol] 7.7 g/dL 6.4-8.[address] [facility] Triglyceride [Mass/Vol] 224 mg/dL <199 [facility] Comment on above: The drugs N-Acetylcy steine and Metamizole may falsely depress this assay.Serum Triglycerides Reference Interval Normal <150 mg/dL Borderline high 150 - 199 mg/dL High 200 - 499 mg/dL Very High > or = 500 mg/dL Direct bilirubinOrdered By: Hira Newman on 10-16-2022 Bilirubin.direct [Mass/Vol] 0.07 mg/dL 0.00-0.30 [facility] Laboratory - Chemistry and C hemistry - challengeOrdered By: Hira Newman on 10-16-2022 ALP [Catalytic activity/Vol] 142 U/L 45-117 [facility] ALT [Catalytic activity/Vol] 19 U/L 13-56 [facility] Globulin (S) [Mass/Vol] 4.0 g/dL 2.2-4.2 [facility] Serum or plasma albumin patricia urement (mass/volume)Ordered By: Hira Newman on 10-16-2022 Albumin [Mass/Vol] 3.7 g/dL 3.2-5.[address] [facility] Serum or plasma cholesterol in HDL measurement (mass/volume)Ordered By: Hira Newman on 10-16-2022 Cholesterol in HDL [Mass/Vol] 38 mg/dL >40 [facility] Comment on above: The drugs N-Acetylcy steine and Metamizole may falsely depress this assay. Reference Range HDL <40 mg/dL Low HDL Cholesterol HDL >or= 60 mg/dL High HDL Cholesterol Serum or plasma cholesterol in VLDL measurement (mass/volume)Ordered By: Hira Newman on 10-16-2022 Cholesterol in VLDL [Mass/Vol] 45 mg/dL 5-40 [facility] Serum or plasma low density lipoprotein (LDL) cholesterol measurement (mass/volume)Ordered By: Hira Newman on 10-16-2022 Cholesterol in LDL [Mass/Vol] 107 mg/dL 0-130 [facility] Thin prep Papanicolaou smear with manual screeningOrdered By: Hira Newman on 10-16-2022 Thin prep Papanicolaou smear with manual screening 26 U/L 15-37 [facility] Comment on above: Moderate Hemolysis, Result may be falsely increased. No Panel Informationon 01-23 Estimated GFR (MDRD) Amer 72 mL/min >60 [facility] Work Phone: Comment on above: GFR Calc Estimated GFR (MDRD) Non-Af Amer 60 mL/min >60 [facility] Work Phone: Comment on above: Non- GFR Calc Serum or plasma creatinine m easurement (mass/volume)on 01-23-2022 Creatinine [Mass/Vol] 0.96 mg/dL 0.55-1.02 [facility] Work Phone: Comment on above: The validity of the calculated GFR & GFRAA in patients over 70 years has not been determined. Clinical correlation is essential. Serum or plasma urea nitroge n measurement (mass/volume)on 01-23-2022 Urea nitrogen [Mass/Vol] 10 mg/dL 01-08 [facility] Work Phone: LIPID PANEL (OUTSIDE)on 04-24 Cholesterol [Mass/Vol] 148 mg/dL [facility] Cholesterol in HDL [Mass/Vol] 34 mg/dL [facility] Cholesterol in LDL [Mass/Vol] 80 mg/dL [facility] LDL:HDL Ratio [facility] Non-HDL Cholesterol [facility] TC:HDL Ratio [facility] Triglyceride [Mass/Vol] 170 mg/dL [facility] VLDL Cholesterol [facility] Lab Report: Lipid Profileon 02-13-2017 Cholesterol 127 mg/dL Invalid Interpretation Code 200 [place] [employer] [facility] Work Phone: [phone] HDL Cholesterol 39 mg/dL Low [employer] Work Phone: [phone] LDL Cholesterol 64 mg/dL Invalid Interpretation Code 0-130 [employer] Work Phone: [phone] Triglyceride 122 mg/dL Invalid Interpretation Code [employer] Work Phone: [phone] very low density lipoproteins 24 mg/dL Invalid Interpretation Code 5-40 [place] [employer] Work Phone: [phone] Lab Report: Liver Profileon 02-13-2017 Alanine aminotransferase (ALT) 20 U/L Invalid Interpretation Code 12-78 [employer] Work Phone: [phone] Albumin 3.7 g/dL Invalid Interpretation Code 3.4-5.0 [employer] Work Phone: [phone] Alkaline phosphatase (ALP) 121 U/L High 45-117 [employer] Work Phone: Aspartate aminotransferase (AST) 24 U/L Invalid Interpretation Code 15-37 [employer] Work Phone: [phone] Bilirubin (direct) 0.11 mg/dL Invalid Interpretation Code 0.00-0.30 [employer] Work Phone: [phone] Bilirubin (total) 0.50 mg/dL Invalid Interpretation Code 0.20-1.00 [employer] Work Phone: [phone] Globulin 3.6 g/dL High 2.3-3.5 [employer] Work Phone: [phone] Protein 7.3 g/dL Invalid Interpretation Code 6.4-8.2 [employer] Work Phone: Office Visiton 02-01-2017 Documentation of current medications (procedure) Done Invalid Interpretation Code [employer] Phone: Pacemaker: Pacemaker/ICD [facility] ckon 02-01-2017 lead advisory [employer] 3231 on Ad visory for early battery depletion. 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 Pt refuses remote monitoring box at this time. Will follow every 3 mos and pt aware of vibratory notifier and will call if feels notifier. Invalid Interpretation Code [employer] Phone: Chart Maintenanceon 01-30-20 17 Left ventricular Ejection fraction 25 % Invalid Interpretation Code [employer] Phone: Office Visit: Bronchiectasis on 01-23-2017 Alcoholism counseling (procedure) no Invalid Interpretation Code [facility] [employer] Phone: Documentation of current medications (procedure) Done Invalid Interpretation Code [facility] [employer] Phone: Protein mass conc no [facility] Phone: Protein mass conc Done [facility] [employer] Phone: Tobacco smoking status NHIS Never Invalid Interpretation Code [facility] [employer] Phone: Tobacco smoking status NHIS Current every day smoker [facility] Work Phone: Tobacco use [facility] Current every day smoker Invali d Interpretation Code [facility] Work Phone: Office Visit: bronchitis/SOB on 11-01-2016 Alcoholism counseling (procedure) no Invalid Interpretation Code [facility] Work Phone: Documentation of current medications (procedure) Done Invalid Interpretation Code [facility] Work Phone: Fall risk assessment No Invalid Interpretation Code [facility] Work Phone: Tobacco smoking status NHIS Never Invalid Interpretation Code [facility] Work Phone: Tobacco use [facility] Former smoker Invalid Interpretation Code [facility] Work Phone: Office Visit: MMMon 06-28-19 17 Documentation of current medications (procedure) Done Invalid Interpretation Code [facility] Work Phone: Protein mass conc yes [facility] Work Phone: Smoking cessation education (procedure) yes Invalid Interpretation Code [facility] Work Phone: Tobacco use [facility] Current every day smoker Invali d Interpretation Code [facility] Work Phone: Pacemaker: [facility]2016 lead advisory [employer] 3231 on Ad visory for early battery depletion. 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 Pt refuses remote monitoring box at this time. Will follow every 3 mos and pt aware of vibratory notifier and will call if feels notifier. 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 Left ventricular Ejection fraction 25 % Invalid Interpretation Code [facility] Phone: Lab Report: Basic Metabolic Profile (BMP)on 07-13-2015 Anion gap 8 mmol/L Invalid Interpretation Code 5-15 [facility] Phone: Anion gap molar conc 8 mmol/L 5-15 [facility] Work Phone: BUN/Creatinine Ratio 25.4 RATIO High 10-20 [facility] Work Phone: Calcium 9.1 mg/dL Invalid Interpretation Code 8.5-10.1 [facility] Work Phone: Chloride 109 mmol/L High 98-107 [facility] Work Phone: CO2 25.0 mmol/L Invalid Interpretation Code 21.0-32.0 [facility] Work Phone: CO2 ppres (BldV) 25.0 mmol/L 21.0-32.0 [facility] Work Phone: Creatinine 0.83 mg/dL Invalid Interpretation Code 0.55-1.20 [facility] Work Phone: eGFR (non-black) 73 mL/min/{1.73_m2} Invalid Interpretation Code >60 [facility] Work Phone: eGFR (non-black) 88 mL/min/{1.73_m2} Invalid Interpretation Code >60 [facility] Work Phone: EST GFR - AA 88 mL/min >60 [facility] Work Phone: Glucose 121 mg/dL High 70-110 [facility] Work Phone: Glucose mass conc 121 mg/dL High 70-110 [facility] Work Phone: Potassium 4.4 mmol/L Invalid Interpretation Code 3.5-5.1 [facility] Work Phone: Sodium 142 mmol/L Invalid Interpretation Code 136-145 [facility] Work Phone: Urea nitrogen 21 mg/dL High 7-18 [facility] Work Phone: Lab Report: CBC-Complete Blo od Cnt No Diffon 07-13-2015 Erythrocyte distribution width Ratio (RBC) 12.7 % 11.6-14.6 [facility] Work Phone: Erythrocyte distribution width Ratio (RBC) 42.6 fL 35.1-43.9 [facility] Work Phone: Erythrocytes (RBC) 4.44 10*6/uL Invalid Interpretation Code 4.2-5.4 [facility] Work Phone: Hematocrit (HCT) 41.3 % Invalid Interpretation Code 37-47 [facility] Work Phone: Hematocrit Volume Fraction (Bld) 41.3 % 37-47 [facility] Work Phone: Hemoglobin (HGB) 13.6 g/dL Invalid Interpretation Code 12.0-15.0 [facility] Work Phone: MCH 30.6 pg Invalid Interpretation Code 27.0-32.0 [facility] Phone: MCH Entitic mass (RBC) 30.6 pg 27.0-32.0 [facility] Work Phone: MCHC 32.9 G/GL Invalid Interpretation Code 32-36 [facility] Work Phone: MCHC mass conc (RBC) 32.9 G/GL 32-36 [facility] Phone: MCV 93.0 fL Invalid Interpretation Code 81-99 [facility] Phone: MCV Entitic volume (RBC) 93.0 fL 81-99 [facility] Work Phone: Platelet mean volume Entitic volume (Bld) 9.9 fL 6.2-12.0 [facility] Work Phone: Platelets 249 10*3/mm3 Invalid Interpretation Code 150-450 [facility] Work Phone: Platelets #/vol (Bld) 249 10*3/mm3 150-450 [facility] Phone: PMV by Yossi 9.9 fL Invalid Interpretation Code 6.2-12.0 [facility] Work Phone: RBC #/vol (Bld) 4.44 10*6/uL 4.2-5.4 [facility] Work Phone: RDW-CA 12.7 % Invalid Interpretation Code 11.6-14.6 [facility] Work Phone: red blood cell distribution width, size density 42.6 fL Invalid Interpretation Code 35.1-43.9 [facility] Work Phone: WBC #/vol (Bld) 7.7 10*3/uL 4.4-11.0 [facility] Work Phone: WBC (Leukocytes) 7.7 10*3/uL Invalid Interpretation Code 4.4-11.0 [facility] Work Phone: Lab Report: Lipid Profileon 07-13-2015 Cholesterol 154 mg/dL Invalid Interpretation Code 200 [facility] Work Phone: HDL Cholesterol 44 mg/dL Invalid Interpretation Code [facility] Work Phone: LDL Cholesterol 81 mg/dL Invalid Interpretation Code 0-130 [facility] Work Phone: Triglyceride 143 mg/dL Invalid Interpretation Code [facility] Work Phone: very low density lipoproteins 29 mg/dL Invalid Interpretation Code 5-40 [facility] Work Phone: Lab Report: Liver Profileon 07-13-2015 Alanine aminotransferase (ALT) 17 U/L Invalid Interpretation Code 12-78 [facility] Work Phone: Albumin 3.9 g/dL Invalid Interpretation Code 3.4-5.0 [facility] Work Phone: Alkaline phosphatase (ALP) 134 U/L Invalid Interpretation Code 50-136 [facility] Work Phone: ALP enzyme act/vol (Bld) 134 U/L 50-136 [facility] Work Phone: Aspartate aminotransferase (AST) 19 U/L Invalid Interpretation Code 15-37 [facility] Phone: Bilirubin (direct) 0.13 mg/dL Invalid Interpretation Code 0.00-0.30 [facility] Phone: Bilirubin (total) 0.70 mg/dL Invalid Interpretation Code 0.20-1.00 [facility] Phone: Globulin 3.9 g/dL High 2.3-3.5 [facility] Work Phone: Globulin mass conc (S) 3.9 g/dL High 2.3-3.5 [facility] Phone: Protein 7.8 g/dL Invalid Interpretation Code 6.4-8.2 [facility] Phone: Replaced Document: Kelly Coates 07-06-2015 EKG QRS axis -25 deg [facility] Phone: electrocardiogram interpretation Sinus Rhythm -First degree A-V block Sergio = 222Low voltage in precordial leads. -Old inferior infarct -Poor R-wave progression -may be secondary to pulmonary disease consider old anterior infarct. - Nonspecific T-abnormality. ABNORMAL Invalid Interpretation Code [facility] Phone: GE use only - for [employer] import when terms are not otherwise specified 420 ms Invalid Interpretation Code [facility] Phone: Interpretation Sinus Rhythm -First degree A-V block Sergio = 222Low voltage in precordial leads. -Old inferior infarct -Poor R-wave progression -may be secondary to pulmonary disease consider old anterior infarct. - Nonspecific T-abnormality. ABNORMAL [facility] Phone: P Harrison 27 deg [facility] Phone: P wave axis, electrocardiogram 27 deg Invalid Interpretation Code [facility] Phone: TX Interval 222 ms [facility] Phone: TX interval, electrocardiogram 222 ms Invalid Interpretation Code [facility] Work Phone: Pulse (Heart Rate) 60 /min Invalid Interpretation Code [facility] Work Phone: QRS axis, electrocardiogram -25 deg Invalid Interpretation Code [facility] Work Phone: QRS Duration 96 ms [facility] Work Phone: QRS duration, electrocardiogram 96 ms Invalid Interpretation Code [facility] Work Phone: QT Interval new path ms [facility] Work Phone: QT interval, electrocardiogram new path ms Invalid Interpretation Code [facility] Work Phone: QTc Lopez 420 ms [facility] Work Phone: T Harrison 118 deg [facility] Work Phone: T wave axis, electrocardiogram 118 deg Invalid Interpretation Code [facility] Work Phone: Lab Report: Magnesiumon 05-24 Magnesium 1.9 mg/dL Invalid Interpretation Code 1.8-2.4 [facility] Work Phone: Office Visit: [facility] 06-04-20 14 cardiac risk group C Invalid Interpretation Code [facility] Phone: General cardiovascular disease 10Y risk [#] [place].D'Agostbrittanie N/A Invalid Interpretation Code [facility] Phone: Tobacco smoking status NHIS Never Invalid Interpretation Code [facility] Work Phone: Lab Report: T4on 09-30-2012 Thyroxine (T4) 9.9 ug/dL Normal 4.8-13.9 [facility] Work Phone: Lab Report: TSHon 09-30-2012 Thyroid stimulating hormone (TSH) 1.72 u[iU]/mL Normal 0.358-3.74 [facility] Work Phone: Office Visiton 03-27-2012 Alcoholism counseling (procedure) no Invalid Interpretation Code [facility] Work Phone: Replaced Document: Kelly Coates 03-27-2012 Pulse (Heart Rate) 407 ms Invalid Interpretation Code [facility] Work Phone: Vital Signs Date Time Vital Sign Value Performing Clinician Harleen norman 03-02-2025 11:18-0400 Body height 157.[address] Jolanta Grant MD Work Phone: [facility] 03-02-2025 11:18-0400 Body mass index (BMI) [Ratio] 26.5 kg/m2 Dr. Jolanta Grant MD Work Phone: [facility] 03-02-2025 11:18-0400 Body weight 65.[address] Jolanta Grant MD Work Phone: [facility] 03-02-2025 11:18-0400 Diastolic blood pressure 64 mm[Hg] Dr. Jolanta Grant MD Work Phone: [facility] 03-02-2025 11:18-0400 Heart rate 58 /min Dr. Jolanta Grant MD Work Phone: [facility] 03-02-2025 11:18-0400 Respiratory rate 18 /min Dr. Jolanta Grant MD Work Phone: [facility] 03-02-2025 11:18-0400 SaO2% (BldA) [Mass fraction] 97 % Dr. Jolanta Gratn MD Work Phone: [facility] 03-02-2025 11:18-0400 Systolic blood pressure 104 mm[Hg] Dr. Jolanta Grant MD Work Phone: [facility] 12-31-2024 09:16-0400 Body height 157.[address] Jolanta Grant MD Work Phone: [facility] 12-31-2024 09:16-0400 Body mass index (BMI) [Ratio] 24.8 kg/m2 Dr. Jolanta Grant MD Work Phone: [facility] 12-31-2024 09:16-0400 Body weight 61.[address] Jolanta Grant MD Work Phone: [facility] 12-31-2024 09:16-0400 Diastolic blood pressure 43 mm[Hg] Dr. Jolanta Grant MD Work Phone: [facility] 12-31-2024 09:16-0400 Heart rate 60 /min Dr. Jolanta Grant MD Work Phone: [facility] 12-31-2024 09:16-0400 Respiratory rate 16 /min Dr. Jolanta Grant MD Work Phone: [facility] 12-31-2024 09:16-0400 Systolic blood pressure 70 mm[Hg] Dr. Jolanta Grant MD Work Phone: [facility] 12-30-2024 15:51-0400 Body temperature 97.7 [degF] Dr. Jolanta Grant MD Work Phone: [facility] 12-30-2024 15:51-0400 Body weight 61.[address] Jolanta Grant MD Work Phone: [facility] 12-30-2024 15:51-0400 Diastolic blood pressure 56 mm[Hg] Dr. Jolanta Grant MD Work Phone: [facility] 12-30-2024 15:51-0400 Heart rate 63 /min Dr. Jolanta Grant MD Work Phone: [facility] 12-30-2024 15:51-0400 Respiratory rate 16 /min Dr. Jolanta Grant MD Work Phone: [facility] 12-30-2024 15:51-0400 SaO2% (BldA) [Mass fraction] 99 % Dr. Jolanta Grant MD Work Phone: [facility] 12-30-2024 15:51-0400 Systolic blood pressure 108 mm[Hg] Dr. Jolanta Grant MD Work Phone: [facility] 12-05-2024 12:09-0400 Body temperature 98.3 [degF] Dr. Jolanta Grant MD Work Phone: [facility] 12-05-2024 12:09-0400 Diastolic blood pressure 53 mm[Hg] Dr. Jolanta Grant MD Work Phone: [facility] 12-05-2024 12:09-0400 Heart rate 60 /min Dr. Jolanta Grant MD Work Phone: [facility] 12-05-2024 12:09-0400 Respiratory rate 18 /min Dr. Jolanta Grant MD Work Phone: [facility] 12-05-2024 12:09-0400 SaO2% (BldA) [Mass fraction] 98 % Dr. Jolanta Grant MD Work Phone: [facility] 12-05-2024 12:09-0400 Systolic blood pressure 123 mm[Hg] Dr. Jolanta Grant MD Work Phone: [facility] 12-02-2024 12:28-0400 Body height 157.[address] Jolanta Grant MD Work Phone: [facility] 12-02-2024 12:28-0400 Body weight 65.[address] Jolanta Grant MD Work Phone: [facility] 12-01-2024 15:09-0400 Body temperature 97.7 [degF] Dr. Jolanta Grant MD Work Phone: [facility] 12-01-2024 15:09-0400 Diastolic blood pressure 64 mm[Hg] Dr. Jolanta Grant MD Work Phone: [facility] 12-01-2024 15:09-0400 Heart rate 62 /min Dr. Jolanta Grant MD Work Phone: [facility] 12-01-2024 15:09-0400 Respiratory rate 16 /min Dr. Jolanta Grant MD Work Phone: [facility] 12-01-2024 15:09-0400 SaO2% (BldA) [Mass fraction] 97 % Dr. Jolanta Grant MD Work Phone: [facility] 12-01-2024 15:09-0400 Systolic blood pressure 121 mm[Hg] Dr. Jolanta Grant MD Work Phone: [facility] 12-01-2024 14:28-0400 Body mass index (BMI) [Ratio] 26.4 kg/m2 Dr. Jolanta Grant MD Work Phone: [facility] 12-01-2024 14:28-0400 Body weight 65.[address] Jolanta Grant MD Work Phone: [facility] 12-01-2024 14:24-0400 Body temperature 97.6 [degF] Dr. Jolanta Grant MD Work Phone: [facility] 12-01-2024 14:24-0400 Diastolic blood pressure 58 mm[Hg] Dr. Jolanta Grant MD Work Phone: [facility] 12-01-2024 14:24-0400 Heart rate 61 /min Dr. Jolanta Grant MD Work Phone: [facility] 12-01-2024 14:24-0400 Respiratory rate 17 /min Dr. Jolanta Grant MD Work Phone: [facility] 12-01-2024 14:24-0400 SaO2% (BldA) [Mass fraction] 98 % Dr. Jolanta Grant MD Work Phone: [facility] 12-01-2024 14:24-0400 Systolic blood pressure 145 mm[Hg] Dr. Jolanta Grant MD Work Phone: [facility] 11-25-2024 13:02-0400 Body height 157.[address] Jolanta Grant MD Work Phone: [facility] 11-20-2024 16:52-0400 Body temperature 97.1 [degF] Dr. Jolanta Grant MD Work Phone: [facility] 11-20-2024 16:52-0400 Diastolic blood pressure 52 mm[Hg] Dr. Jolanta Grant MD Work Phone: [facility] 11-20-2024 16:52-0400 Heart rate 60 /min Dr. Jolanta Grant MD Work Phone: [facility] 11-20-2024 16:52-0400 Respiratory rate 15 /min Dr. Jolanta Grant MD Work Phone: [facility] 11-20-2024 16:52-0400 SaO2% (BldA) [Mass fraction] 98 % Dr. Jolanta Grant MD Work Phone: [facility] 11-20-2024 16:52-0400 Systolic blood pressure 148 mm[Hg] Dr. Jolanta Grant MD Work Phone: [facility] 11-20-2024 05:48-0400 Body mass index (BMI) [Ratio] 25.8 kg/m2 Dr. Jolanta Grant MD Work Phone: [facility] 11-20-2024 05:48-0400 Body weight 64.[address] Jolanta Grant MD Work Phone: [facility] 11-18-2024 09:26-0400 Body height 157.[address] Jolanta Grant MD Work Phone: [facility] 11-12-2024 16:00-0400 Body temperature 98 [degF] Dr. Jolanta Grant MD Work Phone: [facility] 11-12-2024 16:00-0400 Diastolic blood pressure 70 mm[Hg] Dr. Jolanta Grant MD Work Phone: [facility] 11-12-2024 16:00-0400 Heart rate 81 /min Dr. Jolanta Grant MD Work Phone: [facility] 11-12-2024 16:00-0400 Respiratory rate 16 /min Dr. Jolanta Grant MD Work Phone: [facility] 11-12-2024 16:00-0400 SaO2% (BldA) [Mass fraction] 95 % Dr. Jolanta Grant MD Work Phone: [facility] 11-12-2024 16:00-0400 Systolic blood pressure 130 mm[Hg] Dr. Jolanta Grant MD Work Phone: [facility] 11-12-2024 15:12-0400 Body mass index (BMI) [Ratio] 24.8 kg/m2 Dr. Jolanta Grant MD Work Phone: [facility] 11-12-2024 15:12-0400 Body weight 61.[address] Jolanta Grant MD Work Phone: [facility] 10-22-2024 14:05-0400 Body temperature 97.7 [degF] Dr. Jolanta Grant MD Work Phone: [facility] 10-22-2024 14:05-0400 Body weight 63.[address] Jolanta Grant MD Work Phone: [facility] 10-22-2024 14:05-0400 Diastolic blood pressure 55 mm[Hg] Dr. Jolanta Grant MD Work Phone: [facility] 10-22-2024 14:05-0400 Heart rate 60 /min Dr. Jolanta Grant MD Work Phone: [facility] 10-22-2024 14:05-0400 Respiratory rate 16 /min Dr. Jolanta Grant MD Work Phone: [facility] 10-22-2024 14:05-0400 SaO2% (BldA) [Mass fraction] 98 % Dr. Jolanta Grant MD Work Phone: [facility] 10-22-2024 14:05-0400 Systolic blood pressure 96 mm[Hg] Dr. Jolanta Grant MD Work Phone: [facility] 10-18-2024 17:14-0400 Body temperature 98 [degF] Dr. Jolanta Grant MD Work Phone: [facility] 10-18-2024 17:14-0400 Diastolic blood pressure 88 mm[Hg] Dr. Jolanta Grant MD Work Phone: [facility] 10-18-2024 17:14-0400 Heart rate 58 /min Dr. Jolanta Grant MD Work Phone: [facility] 10-18-2024 17:14-0400 Respiratory rate 19 /min Dr. Jolanta Grant MD Work Phone: [facility] 10-18-2024 17:14-0400 SaO2% (BldA) [Mass fraction] 98 % Dr. Jolanta Grant MD Work Phone: [facility] 10-18-2024 17:14-0400 Systolic blood pressure 145 mm[Hg] Dr. Jolanta Grant MD Work Phone: [facility] 10-18-2024 11:30-0400 Body height 157.[address] Jolanta Grant MD Work Phone: [facility] 10-18-2024 11:30-0400 Body mass index (BMI) [Ratio] 25.9 kg/m2 Dr. Jolanta Grant MD Work Phone: [facility] 10-18-2024 11:30-0400 Body weight 64.[address] Jolanta Grant MD Work Phone: [facility] 10-16-2022 10:33-0400 Body height 157.[address] Jolanta Grant Work Phone: [facility] 10-16-2022 10:33-0400 Body mass index (BMI) [Ratio] 26.6 kg/m2 Dr. Jolanta Grant Work Phone: [facility] 10-16-2022 10:33-0400 Body weight 66.[address] Jolanta Grant Work Phone: [facility] 10-16-2022 10:33-0400 Diastolic blood pressure 59 mm[Hg] Dr. Jolanta Grant Work Phone: [facility] 10-16-2022 10:33-0400 Heart rate 60 /min Dr. Jolanta Grant Work Phone: [facility] 10-16-2022 10:33-0400 Respiratory rate 16 /min Dr. Jolanta Grant Work Phone: [facility] 10-16-2022 10:33-0400 Systolic blood pressure 100 mm[Hg] Dr. Jolanta Grant Work Phone: [facility] 09-12-2021 12:58-0400 Body height 157.[address] Jolanta Grant Work Phone: [facility] Work Phone: 09-12-2021 12:58-0400 Body weight 64.[address] Jolanta Grant Work Phone: [facility] Work Phone: 09-12-2021 12:58-0400 Diastolic blood pressure 66 mm[Hg] Dr. Jolanta Grant Work Phone: [facility] Work Phone: 09-12-2021 12:58-0400 Heart rate 60 /min Dr. Jolanta Grant Work Phone: [facility] Work Phone: 09-12-2021 12:58-0400 Respiratory rate 16 /min Dr. Jolanta Grant Work Phone: [facility] Work Phone: 09-12-2021 12:58-0400 Systolic blood pressure 117 mm[Hg] Dr. Jolanta Grant Work Phone: [facility] Work Phone: 09-12-2021 12:58-0400 Body height 157.[address] Jolanta Grant Work Phone: [facility] Work Phone: 09-12-2021 12:58-0400 Body weight 64.[address] Jolanta Grant Work Phone: [facility] Work Phone: 09-12-2021 12:58-0400 Diastolic blood pressure 66 mm[Hg] Dr. Jolanta Grant Work Phone: [facility] Work Phone: 09-12-2021 12:58-0400 Heart rate 60 /min Dr. Jolanta Grant Work Phone: [facility] Work Phone: 09-12-2021 12:58-0400 Respiratory rate 16 /min Dr. Jolanta Grant Work Phone: [facility] Work Phone: 09-12-2021 12:58-0400 Systolic blood pressure 117 mm[Hg] Dr. Jolanta Grant Work Phone: [facility] Work Phone: 12-13-2020 15:17-0400 Body mass index (BMI) [Ratio] 26.2 kg/m2 Dr. Jolanta Grant Work Phone: [facility] Work Phone: 12-13-2020 14:23-0400 Body mass index (BMI) [Ratio] 27.6 kg/m2 Dr. Jolanta Grant Work Phone: [facility] Work Phone: 02-01-2017 12:25-0400 BMI (Body Mass Index) 25.15 kg/m2 RAJINDER [facility] Work Phone: 02-01-2017 12:25-0400 BP Diastolic 60 mm[Hg] [facility] Work Phone: 02-01-2017 12:25-0400 BP Systolic 112 mm[Hg] [facility]ER [facility] Work Phone: 02-01-2017 12:25-0400 Height 160.02 cm [facility]JINDER [facility] Work Phone: 02-01-2017 12:25-0400 Pulse (Heart Rate) 60 /min Jada Marsh RN [employer] Work Phone: 02-01-2017 12:25-0400 Respiratory Rate 18 /min Jada Marsh RN [employer] Work Phone: 02-01-2017 12:25-0400 Weight 64.41 kg Jada Marsh RN [employer] Work Phone: 01-23-2017 06:04-0400 BMI (Body Mass Index) 25.68 kg/m2 Jessica Yensho MOLD WORKER [facility] Work Phone: 01-23-2017 06:04-0400 Body Temperature 98.8 [degF] Jessica Yensho MOLD WORKER [facility] Work Phone: 01-23-2017 06:04-0400 BP Diastolic 76 mm[Hg] Jessica Yensho MOLD WORKER [facility] Work Phone: 01-23-2017 06:04-0400 BP Systolic 117 mm[Hg] Jessica Yensho MOLD WORKER [facility] Work Phone: 01-23-2017 06:04-0400 Height 160.02 cm Jessica Yensho MOLD WORKER [facility] Work Phone: 01-23-2017 06:04-0400 Pulse (Heart Rate) 67 /min Jessica Yensho MOLD WORKER [facility] Work Phone: 01-23-2017 06:04-0400 Respiratory Rate 18 /min Jessica Yensho MOLD WORKER [facility] Work Phone: 01-23-2017 06:04-0400 Weight 65.77 kg Jessica Yensho MOLD WORKER [facility] Work Phone: 11-01-2016 10:41-0400 BMI (Body Mass Index) 26.04 kg/m2 Karolyn Garza MOLD WORKER [facility] Work Phone: 11-01-2016 10:41-0400 Body Temperature 97.2 [degF] Karolyn Garza MOLD WORKER [facility] Work Phone: 11-01-2016 10:41-0400 BP Diastolic 73 mm[Hg] Karolyn Garza MOLD WORKER [facility] Work Phone: 11-01-2016 10:41-0400 BP Systolic 164 mm[Hg] Karolyn Garza MOLD WORKER [facility] Work Phone: 11-01-2016 10:41-0400 Height 160.02 cm Karolyn Garza MOLD WORKER [facility] Work Phone: 11-01-2016 10:41-0400 Pulse (Heart Rate) 61 /min Karolyn Garza MOLD WORKER [facility] Work Phone: 11-01-2016 10:41-0400 Pulse Oximetry 97 % Karolyn Garza MOLD WORKER [facility] Work Phone: 11-01-2016 10:41-0400 Respiratory Rate 18 /min Karolyn Garza MOLD WORKER [facility] Work Phone: 11-01-2016 10:41-0400 Weight 66.68 kg Karolyn Garza MOLD WORKER [facility] Work Phone: 06-28-2016 09:57-0500 BMI (Body Mass Index) 24.23 kg/m2 Karolyn Garza MOLD WORKER [facility] Work Phone: 06-28-2016 09:57-0500 BP Diastolic 70 mm[Hg] Karolyn Garza MOLD WORKER [facility] Work Phone: 06-28-2016 09:57-0500 BP Systolic 130 mm[Hg] Karolyn Garza MOLD WORKER [facility] [employer] Phone: 06-28-2016 09:57-0500 BSA (Body Surface Area) 1.65 m2 Karolyn Garza MOLD WORKER [facility] [employer] Phone: 06-28-2016 09:57-0500 Pulse (Heart Rate) 72 /min Karolyn Garza MOLD WORKER [facility] [employer] Phone: 06-28-2016 09:57-0500 Respiratory Rate 18 /min Karolyn Garza MOLD WORKER [facility] [employer] Phone: 06-28-2016 09:57-0500 Weight 62.05 kg Karolyn Garza MOLD WORKER [facility] [employer] Phone: 07-06-2015 09:43-0500 Heart rate 60 /min Jessica Yensho MOLD WORKER [facility] [employer] Phone: 12-03-2013 13:40-0400 Height 160.02 cm Karolyn Garza MOLD WORKER [facility] [employer] Phone: 03-27-2012 15:37-0400 Heart rate 407 ms Jessica Yensho MOLD WORKER [facility] [employer] Phone: Encounters Encounter Date Encounter Type Care Provider Facility Start: 05-04-2025 ambulatory Shahid [facility] Start: 05-04-2025 ambulatory Shahid [facility] Start: 05-03-2025 End: 05-04-2025 ambulatory Olvin Styles Facility:[facility] Start: 04-28-2025 ambulatory Gladys Johnson [facility] Start: 03-09-2025 ambulatory Akin Del Angel ty:[facility] Start: 03-02-2025 End: 03-02-[address] Jolanta Grant MD Work Phone: [facility] Start: 03-02-2025 End: 03-02-2025 Patient encounter procedure Nancy FARIASC -[facility] Work Phone: Start: 02-09-2025 End: 02-09-[address] Jolanta Grant MD Work Phone: [facility] Start: 02-09-2025 End: 02-09-2025 Patient encounter procedure Laura PA-C -[facility] Work Phone: Start: 02-09-2025 End: 02-09-2025 Laura Leticia PA-C -[facility] Work Phone: Start: 02-09-2025 End: 02-09-2025 ambulatory [facility] Facility:[facility] Start: 01-21-2025 End: 01-21-[address] Jolanta Grant MD Work Phone: -[facility] Start: 01-21-2025 End: 01-21-2025 Patient encounter procedure Tiana Wood PA -[facility] Work Phone: Start: 01-21-2025 End: 01-21-2025 Tiana Wood PA -[facility] Work Phone: Start: 01-21-2025 End: 01-21-2025 ambulatory Shahid Chi Elver Facility:[facility] Start: 01-07-2025 End: 01-07-[address] Jolanta Grant MD Work Phone: -Physical Therapy Start: 01-07-2025 End: 01-07-[address] Shahid Raya MD -Physical Therapy Work Phone: Start: 01-07-2025 End: 01-07-2025 Dr. Shahid Raya MD -Physical Therapy Work Phone: Start: 01-07-2025 End: 01-07-2025 Patient encounter procedure Yuniel Tsai MD -[facility] Work Phone: Start: 01-07-2025 End: 01-07-2025 Yuniel Tsai MD -[facility] Work Phone: Start: 01-07-2025 End: 01-07-[address] Jolanta Grant MD Work Phone: [facility] Start: 01-05-2025 Dr. Shahid Raya MD -Ph ysical Therapy Work Phone: Start: 12-31-2024 End: 12-31-2024 Patient encounter procedure Nancy PEREIRA -[facility] Work Phone: Start: 12-31-2024 End: 12-31-2024 Loree Marsh -[facility] Work Phone: Start: 12-31-2024 End: 12-31-[address] Jolanta Grant MD Work Phone: [facility] Start: 12-30-2024 End: 12-30-2024 Patient encounter procedure Tiana Wood [facility] Work Phone: Start: 12-30-2024 End: 12-30-2024 Tiana Wood [facility] Work Phone: Start: 12-30-2024 End: 12-31-[address] Jolanta Grant MD Work Phone: -[facility] Start: 12-29-[address] Shahid mora MD -Physical Therapy Work Phone: Start: 12-29-2024 Dr. Shahid Raya MD -Ph ysical Therapy Work Phone: Start: 12-18-[address] Shahid mora MD -Physical Therapy Work Phone: Start: 12-16-[address] Shahid mora MD -Physical Therapy Work Phone: Start: 12-15-2024 End: 12-15-[address] Jolanta Grant MD Work Phone: -Laboratory Start: 12-15-2024 End: 12-15-[address] Shahid Raya MD -Laboratory Work Phone: Start: 12-15-2024 End: 12-15-2024 Dr. Shahid Raya MD -Laboratory Work Phone: Start: 12-15-2024 End: 12-15-2024 ambulatory [facility] Facility:[facility] Start: 12-11-2024 Non-patient / Non-visit Dr. Crow chopra MD -[facility] Start: 12-11-2024 End: 12-11-[address] Jolanta Grant MD Work Phone: [facility] Work Phone: Start: 12-11-2024 End: 12-11-2024 Patient encounter procedure Tiana LOCKWOOD -Cardiovascular Services Work Phone: Start: 12-11-2024 End: 12-11-2024 Dr. Crow Dc MD -[facility] Start: 12-11-2024 End: 12-11-2024 ambulatory [facility] Facility:[facility] Start: 12-08-2024 End: 12-08-[address] Jolanta Grant MD Work Phone: [facility] Work Phone: Start: 12-08-2024 End: 12-08-[address] Shahid Raya MD -Laboratory Work Phone: Start: 12-08-2024 End: 12-08-2024 Dr. Shahid Raya MD -Laboratory Work Phone: Start: 12-08-2024 End: 12-08-2024 ambulatory [facility] Facility:[facility] Start: 12-07-[address] Shahid mora MD -Physical Therapy Work Phone: Start: 12-01-2024 End: 12-01-2024 Patient encounter procedure Tiana LOCKWOOD -[facility] Work Phone: Start: 12-01-2024 End: 12-01-2024 Taina LOCKWOOD -[facility] Work Phone: Start: 12-01-2024 End: 12-01-[address] Jolanta Grant MD Work Phone: [facility] Work Phone: Start: 11-24-2024 Non-patient / Non-visit Tiana Wood PA -[facility] Start: 11-24-2024 Tiana Wood PA -[facility] Start: 11-20-2024 ambulatory No Primary Car e Physician Facility:[facility] Start: 11-20-2024 End: 12-05-2024 Evaluation and management of inpatient Dr. Shahid Raya MD -Transitional Care Unit Start: 11-20-2024 End: 12-05-2024 Dr. Shahid Raya MD -Transitional Care Unit Start: 11-20-2024 Non-patient / Non-visit Tiana Wood PA -[facility] Start: 11-20-2024 Tiana Wood PA -[facility] Start: 11-19-2024 Non-patient / Non-visit Tiana Wood PA -[facility] Start: 11-19-2024 Tiana Sainzhn PA -[facility] Start: 11-18-2024 Non-patient / Non-visit Tiana Wood PA -[facility] Start: 11-18-2024 Tiana Wood PA -[facility] Start: 11-17-2024 ambulatory [facility] Start: 11-17-2024 End: 11-20-2024 Evaluation and management of inpatient Dr. Crow Dc MD -Intensive Care Unit Work Phone: Start: 11-17-2024 End: 11-20-2024 Dr. Crow Dc MD -Intensive Care Unit Work Phone: Start: 11-17-2024 Non-patient / Non-visit Dr. Crow chopra MD -[facility] Start: 11-17-2024 Dr. Crow Dc MD -[facility] Start: 11-17-2024 ambulatory [facility] Start: 11-12-2024 End: 11-12-2024 Dr. Darryl [place] DO -Emergency Departme nt Work Phone: Start: 11-12-2024 End: 11-12-2024 Emergency department patient visit Dr. Darryl Quinones DO -Emergency Department Work Phone: Start: 11-04-2024 End: 11-04-2024 Telephone encounter Jolanta Grant MD Work Phone: [facility] Comment on above: Appointment Start: 11-04-2024 End: 11-04-2024 Non-patient / Non-visit Dr. Crow Dc MD -[facility] Start: 11-04-2024 End: 11-04-[address] Jolanta Grant MD Work Phone: [facility] Work Phone: Start: 11-04-2024 End: 11-04-[address] Crow Dc MD -Cardiovascular Services Work Phone: Start: 11-04-2024 End: 11-04-2024 Dr. Akin Carbajal MD -[facility] Work Phone: Start: 11-04-2024 End: 11-04-2024 ambulatory Crow Dc Facility:[facility] Start: 10-22-2024 End: 10-22-[address] Crow Dc MD -[facility] Work Phone: Start: 10-22-2024 End: 10-22-2024 Dr. Crow Dc MD -[facility] Work Phone: Start: 10-22-2024 End: 10-22-2024 ambulatory Crow Dc Facility:[facility] Start: 10-20-2024 End: 10-20-2024 ambulatory Isra Rizvi RN Staff Anesthetist Management Comment on above: ACM JOVITA RN ( Chart review per payor request.) Start: 10-18-2024 End: 10-18-2024 Dr. Dina Camp DO -Emergency Departme nt Work Phone: Start: 10-18-2024 End: 10-18-2024 Emergency department patient visit Dr. Dina Camp DO -Emergency Department Work Phone: Start: 07-02-2024 End: 07-03-2024 Patient encounter procedure [facility] Provider [facility] Start: 07-02-2024 End: 07-02-2024 ambulatory Yuniel Wrightori Facility:[facility] Start: 12-06-2023 Patient encounter procedure [facility] Provider [facility] Start: 07-08-2023 Telephone encounter Jolanta Grant MD Work Phone: [facility] Staff Anesthetist Comment on above: [facility] Start: 04-29-2023 Patient encounter procedure [facility] Provider [facility] Start: 03-05-2023 End: 03-05-2023 ambulatory [facility] Work Phone: Start: 03-05-2023 End: 03-05-2023 Patient encounter procedure [facility] Work Phone: Start: 10-16-2022 End: 10-16-[address] Jolanta Grant Work Phone: [facility] Work Phone: Start: 10-16-2022 End: 10-16-[address] Jolanta Grant Work Phone: [facility]-Laboratory Start: 10-16-2022 End: 10-16-[address] Jolanta Grant Work Phone: [facility] Start: 07-06-2022 Chart abstracting Unk (Historical) M ercy Staff Anesthetist Start: 01-26-2022 End: 01-26-2022 Patient encounter procedure [facility] Start: 01-23-2022 End: 01-23-2022 Patient encounter procedure [facility] Start: 12-26-2021 End: 12-26-[address] Jolanta Grant Work Phone: [facility] Start: 09-29-2021 End: 09-29-[address] Jolanta Grant Work Phone: [facility] Start: 09-12-2021 End: 09-12-[address] Jolanta Grant Work Phone: [facility] Start: 06-12-2021 End: 06-12-[address] Jolanta Grant Work Phone: [facility] Procedures Date Procedure Procedure Detail Performing Clinician Start: 02-09-2025 In-vitro immunologic test Dr. Jolanta ramirez MD Work Phone: Comment on above: QuantiFERON-TB Gold Plus is a qualitativ e indirect test forM tuberculosis infection (including disease) and isintended for use in conjunction with risk assessment,radiography, and other medical and diagnostic evaluations.The QuantiFERON-TB Gold Plus result is determined bysubtracting the Nil value from either TB antigen (Ag)value. The Mitogen tube serves as a control for the test. No response to M tub erculosis antigens detected.Infection with M tuberculosis is unlikely, but high riskindividuals should be considered for additional testing(ATS/IDSA/CDC Clinical Practice Guidelines, 2017). Thereference range is an Antigen minus Nil result of <0.35IU/mL.The specimen received for QuantiFERON testing was incubatedby the ordering institution. Specific procedures outlinedin our Directory of Services and in the package insert forthe QuantiFERON Gold (In Tube) test must be followed toenable for proper stimulation of cells for the productionof interferon gamma. Chemiluminescence immunoassaymethodologyPerformed at: [facility] [id number] Director: Javan Dumont PhD, Phone: [phone] Start: 01-21-2025 CT of abdominal aorta with contrast Dr. Jolanta Grant MD Work Phone: Start: 12-31-2024 Blood count smear mcrscp w/mnl difrntl wbc count Dr. Jolanta Grant MD Work Phone: Start: 12-31-2024 Mean corpuscular hemoglobin concentration determination Dr. Jolanta Grant MD Work Phone: Start: 12-31-2024 Nucleated red blood cell count procedure Dr. Jolanta Grant MD Work Phone: Start: 12-31-2024 Platelet mean volume determination Dr. Franklyn Grant MD Work Phone: Start: 12-15-2024 Blood count smear mcrscp w/mnl difrntl wbc count Dr. Jolanta Grant MD Work Phone: Start: 12-15-2024 Mean corpuscular hemoglobin concentration determination Dr. Jolanta Grant MD Work Phone: Start: 12-15-2024 Nucleated red blood cell count procedure Dr. Jolanta Grant MD Work Phone: Start: 12-15-2024 Platelet mean volume determination Dr. Franklyn Grant MD Work Phone: Start: 12-15-2024 Total cholesterol:HDL ratio measurement Dr. Jolanta Grant MD Work Phone: Start: 12-15-2024 Vitamin D, 25-hydroxy measurement Dr. Ra bekah Grant MD Work Phone: Comment on above: Vitamin D StatusDeficiency: <20 ng/mL (5 0nmol/L)Insufficiency: 20-30 ng/mL (50-75 nmol/L)Sufficiency: 30-100 ng/mL (75-250 nmol/L)Toxicity: >100 ng/mL (>250 nmol/L) Start: 12-08-2024 Blood count smear mcrscp w/mnl difrntl wbc count Dr. Jolanta Grant MD Work Phone: Start: 12-08-2024 Mean corpuscular hemoglobin concentration determination Dr. Jolanta Grant MD Work Phone: Start: 12-08-2024 Nucleated red blood cell count procedure Dr. Jolanta Grant MD Work Phone: Start: 12-08-2024 Platelet mean volume determination Dr. Franklyn Grant MD Work Phone: Start: 12-04-2024 Blood count smear mcrscp w/mnl difrntl wbc count Dr. Jolanta Grant MD Work Phone: Start: 12-04-[address] Tevin Grant MD Work Phone: Start: 12-04-2024 Mean corpuscular hemoglobin concentration determination Dr. Jolanta Grant MD Work Phone: Start: 12-04-2024 Nucleated red blood cell count procedure Dr. Jolanta Grant MD Work Phone: Start: 12-04-2024 Platelet mean volume determination Dr. Franklyn Grant MD Work Phone: Start: 11-27-[address] Tevin Grant MD Work Phone: Start: 11-25-2024 Plain X-ray abdomen Dr. Jolanta Grant MD Work Phone: Start: 11-20-2024 Blood count smear mcrscp w/mnl difrntl wbc count Dr. Jolanta Grant MD Work Phone: Start: 11-20-[address] Tevin Grant MD Work Phone: Start: 11-20-2024 Mean corpuscular hemoglobin concentration determination Dr. Jolanta Grant MD Work Phone: Start: 11-20-2024 Nucleated red blood cell count procedure Dr. Jolanta Grant MD Work Phone: Start: 11-20-2024 Platelet mean volume determination Dr. Franklyn Grant MD Work Phone: Start: 11-18-2024 Serum inorganic phosphate measurement Dr Cherise Grant MD Work Phone: Start: 11-17-2024 Coagulation time, activated Dr. Jolanta Grant MD Work Phone: Start: 11-17-2024 Femoral-femoral crossover arteriogram Dr Cherise Grant MD Work Phone: Start: 11-17-[address] Jolanta Grant MD Work Phone: Start: 10-18-2024 Urine microscopy: red cells Dr. Jolanta Grant MD Work Phone: Start: 10-18-2024 Urnls dip stick/tablet reagent auto microscopy Dr. Jolanta Garnt MD Work Phone: Start: 10-18-[address] Jolanta Grant MD Work Phone: Start: 10-18-2024 CT of abdominal aorta with contrast Dr. Jolanta Grant MD Work Phone: Start: 10-18-2024 Blood count smear mcrscp w/mnl difrntl wbc count Dr. Jolanta Grant MD Work Phone: Start: 10-18-2024 Calculation of international normalized ratio Dr. Jolanta Grant MD Work Phone: Start: 10-18-[address] Tevin Grant MD Work Phone: Start: 10-18-2024 Mean corpuscular hemoglobin concentration determination Dr. Jolanta Grant MD Work Phone: Start: 10-18-2024 Nucleated red blood cell count procedure Dr. Jolanta Grant MD Work Phone: Start: 10-18-2024 Platelet mean volume determination Dr. Franklyn Grant MD Work Phone: Start: 01-26-2022 CT of abdominal aorta with contrast Start: 05-10-2020 Lipid panel Jolanta Grant MD Work Phone: Start: 02-01-2017 End: 02-13-2017 *Hepatic Function Panel Michelle Wolf Start: 02-01-2017 End: 02-01-2017 Follow Up Appt 6 months Michelle Wolf Start: 02-01-2017 End: 02-01-2017 Icd device progr eval, mult Yuniel Garcia i, MD Start: 02-01-2017 End: 02-13-2017 Lipid panel [AGGREGATE] Michelle Wolf Start: 02-01-2017 End: 02-01-2017 RONA Tsai MD Start: 06-28-2016 End: 06-28-2016 COMPLIANCE TESTING ANALYST Savanah Jade PA-C Work Phone: Start: 06-28-2016 End: 06-28-2016 Follow Up Appt 6 months Savanah Jade PA-C Work Phone: Start: 06-28-2016 End: 06-28-2016 Icd device progr isabela cunha i, MD Start: 03-20-2016 End: 06-13-2016 Follow Up Appt 3 months Michelle Wolf Start: 03-20-2016 End: 03-20-2016 Icd device progr isabela cunha i, MD Start: 03-20-2016 End: 06-13-2016 Pacer Clinic Yuniel Tsai MD Start: 01-11-2016 End: 06-28-2016 *Hepatic Function Panel Michelle Wolf Start: 01-11-2016 End: 06-28-2016 Lipid panel [AGGREGATE] Michelle Wolf Start: 01-06-2016 End: 01-06-2016 Nuclear stress test -exercise Yuniel Garner MD Start: 12-30-2015 End: 12-30-2015 Follow Up Appt 6 months Michelle Wolf Start: 12-30-2015 End: 12-30-2015 RONA Tsai MD Start: 12-19-2015 End: 06-13-2016 Follow Up Appt 3 months Savanah Jade PA-C Work Phone: Start: 12-19-2015 End: 12-19-2015 Icd device progr eval, clayt Savanah Jade PA-C Work Phone: Start: 12-19-2015 End: 06-13-2016 Pacer Clinic Savanah Jade PA-C Work Phone: Start: 09-07-2015 End: 06-13-2016 Follow Up Appt 3 months Michelle Wolf Start: 09-07-2015 End: 09-07-2015 Icd device progr evtae, isabela Yuniel Garcia i, MD Start: 09-07-2015 End: 06-13-2016 Pacer Clinic Yuniel Tsai MD Start: 07-13-2015 End: 07-13-2015 *Hepatic Function Panel Michelle Wolf Start: 07-13-2015 End: 07-13-2015 Lipid panel [AGGREGATE] Michelle Wolf Start: 07-06-2015 End: 07-13-2015 *BMP Savanah Jade PA-C Work Phone: Start: 07-06-2015 End: 07-13-2015 CBC W Auto Differential panel - Blood Mi haley Jade PA-C Work Phone: Start: 07-06-2015 End: 07-06-2015 COMPLIANCE TESTING ANALYST Savanah Jade PA-C Work Phone: Start: 07-06-2015 End: 07-13-2015 Echocardiography Savanah Jade PA-C Work Phone: Start: 07-06-2015 End: 07-06-2015 Follow Up Appt 6 months Savanah Jade PA-C Work Phone: Start: 07-06-2015 End: 07-06-2015 Follow Up Appt Other Savanah Jade PA-C Work Phone: Start: 06-01-2015 End: 06-29-2015 Follow Up Appt 3 months Savanah Jade PA-C Work Phone: Start: 06-01-2015 End: 06-01-2015 Icd device progr eval, mult Savanah Jade PA-C Work Phone: Start: 06-01-2015 End: 06-29-2015 Pacer Clinic Savanah Jade PA-C Work Phone: Start: 03-02-2015 End: 06-29-2015 Follow Up Appt 3 months Savanah Jade PA-C Work Phone: Start: 03-02-2015 End: 03-02-2015 Icd device progr eval, clayt Savanah Jade PA-C Work Phone: Start: 03-02-2015 End: 06-29-2015 Pacer Clinic Savanah Jade PA-C Work Phone: Start: 12-30-2014 End: 12-31-2014 Documentation of current medications Varghese Tsai MD Start: 12-30-2014 End: 12-30-2014 Follow Up Appt 6 months Michelle Wolf Start: 12-30-2014 End: 12-30-2014 RONA Tsai MD Start: 11-24-2014 End: 12-30-2014 Follow Up Appt 3 months Michelle Wolf Start: 11-24-2014 End: 11-24-2014 Icd device progr eval, mult Yuniel Garcia i, MD Start: 11-24-2014 End: 12-30-2014 Pacer Clinic Yuniel Tsai MD Start: 10-19-2014 End: 11-16-2014 *Hepatic Function Panel Michelle Wolf Start: 10-19-2014 End: 11-16-2014 Lipid panel [AGGREGATE] Michelle Wolf Start: 08-17-2014 End: 12-30-2014 Follow Up Appt 3 months Savanah Jade PA-C Work Phone: Start: 08-17-2014 End: 08-17-2014 Icd device progr eval, mult Savanah Jade PA-C Work Phone: Start: 08-17-2014 End: 12-30-2014 Pacer Clinic Savanah Jade PA-C Work Phone: Start: 06-04-2014 End: 06-04-2014 COMPLIANCE TESTING ANALYST Savanah Jade PA-C Work Phone: Start: 06-04-2014 End: 06-04-2014 Follow Up Appt 6 months Savaanh Jade PA-C Work Phone: Start: 06-04-2014 End: 06-04-2014 Magnesium Savanah Jade PA-C Work Phone: Start: 05-12-2014 End: 05-19-2014 Follow Up Appt 3 months Michelle Wolf Start: 05-12-2014 End: 05-12-2014 Icd device progr eval, mult Yuniel Garcia i, MD Start: 05-12-2014 End: 05-19-2014 Pacer Clinic Yuniel Tsai MD Start: 04-19-2014 End: 04-20-2014 *BMP Yuniel Tsai MD Start: 04-19-2014 End: 04-20-2014 *Hepatic Function Panel Michelle Wolf Start: 04-19-2014 End: 04-20-2014 Lipid panel [AGGREGATE] Michelle Wolf Start: 02-04-2014 End: 05-19-2014 Follow Up Appt 3 months Savanah Jade PA-C Work Phone: Start: 02-04-2014 End: 02-04-2014 Icd device progr eval, mult Savanah Jade PA-C Work Phone: Start: 02-04-2014 End: 05-19-2014 Pacer Clinic Savanah Jade PA-C Work Phone: Start: 12-03-2013 End: 12-03-2013 Follow Up Appt 6 months Michelle Wolf Start: 12-03-2013 End: 12-03-2013 MM Yuniel Tsai MD Start: 11-04-2013 End: 04-20-2014 Follow Up Appt 3 months Michelle Wolf Start: 11-04-2013 End: 11-04-2013 Icd device progr eval, mult Yuniel Garcia i, MD Start: 11-04-2013 End: 04-20-2014 Pacer Clinic Yuniel Tsai MD Start: 08-05-2013 End: 04-20-2014 Follow Up Appt 3 months Michelle Wolf Start: 08-05-2013 End: 08-05-2013 Icd device progr eval, dual Yuniel Garcia i, MD Start: 08-05-2013 End: 04-20-2014 Pacer Clinic Yuniel Tsai MD Start: 06-01-2013 End: 06-10-2013 *BMP Saavnah Jade PA-C Work Phone: Start: 06-01-2013 End: 06-01-2013 COMPLIANCE TESTING ANALYST Savanah Jade PA-C Work Phone: Start: 06-01-2013 [...] End: 05-04-2013 Icd device progr isabela cunha i, MD Start: 05-04-2013 End: 06-01-2013 Pacer Clinic Yuniel Tsai MD Start: 01-30-2013 End: 06-01-2013 Follow Up Appt 3 months Michelle Wolf Start: 01-30-2013 End: 06-01-2013 Icd device progr isabela cunha i, MD Start: 01-30-2013 End: 06-01-2013 Pacer Clinic Yuniel Tsai MD Start: 12-02-2012 End: 12-02-2012 Follow Up Appt 6 months Michelle Wolf Start: 12-02-2012 End: 12-02-2012 RONA Tsai MD Start: 09-29-2012 End: 06-01-2013 Follow Up Appt 3 months Michelle Wolf Start: 09-29-2012 End: 09-29-2012 Icd device progr guerline, clayt Yuniel Garcia i, MD Start: 09-29-2012 Implantation of automatic cardiac defibrillator IMPLANTATION OF DEFIBRILLATOR, HX OF 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 Start: 09-29-2012 End: 06-01-2013 Pacer Clinic Yuniel [...] [Units/volume] in Serum or Plasma Miles Del aCstillo MD Start: 09-24-2012 End: 10-02-2012 Thyroxine (T4) Miles Del Castillo MD Start: 09-15-2012 End: 09-15-2012 Follow Up Appt 3 months Miles Del Castillo MD Start: 09-10-2012 End: 09-15-2012 *Hepatic Function Panel Miles Del Castillo MD Start: 09-10-2012 End: 09-15-2012 Lipid 1996 panel - Serum or Plasma Ines Del Castillo MD Start: 09-10-2012 End: 09-15-2012 Thyroxine (T4) Miles Del Castillo MD Start: 06-12-2012 End: 06-12-2012 Follow Up Appt 3 months Miles Del Castillo MD Start: 04-24-2012 End: 05-26-2012 *BMP Miles Del Castillo MD Start: 03-27-2012 End: 05-26-2012 *Hepatic Function Panel Mlies Del Castillo MD Start: 03-27-2012 End: 04-10-2012 [...] Jolanta Grant Work Phone: Comment on above: JID-LHW-Xflhnp RCA w/ 2.25 x 8 mm Promus Element Stent and ROBERTO-Prox RCA w/ 2.25 x 16 mm Promus Element Stent 03/06/2012 Start: 04-28-1997 History of coronary artery bypass grafting H/O coronary artery bypass surgery 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 Comment on above: CABG x3 VERNON to LAD, SVG to RCA, SVG to LCX 04/28/1997 Plan of Treatment Date Care Activity Detail Author Start: 05-10-2025 LIPID SCREEN LIPID SCREEN [facility] Start: 02-22-2025 Influenza vaccination Influenza Vaccine (Season Ended) [facility] Start: 12-05-2024 Patient discharge [facility] Start: 12-04-2024 Development of care plan [facility] Start: 11-26-2024 [facility] Start: 11-23-2024 [facility] Start: 11-21-2024 Development of care plan [facility] Start: 11-21-2024 Developing a treatment plan [facility] Start: 11-20-2024 Referral to vascular surgeon [facility] Start: 11-20-2024 End: 11-20-2024 [facility] Start: 11-20-2024 Wound care [facility] Start: 11-20-2024 Provision of activity privileges [facility] Start: 11-20-2024 Following clinical pathway protocol [facility] Start: 11-20-2024 Verification routine [facility] Start: 11-20-2024 Admission procedure [facility] Start: 11-20-2024 Introduction of urinary catheter [facility] Start: 11-20-2024 Measuring intake and output [facility] Start: 11-20-2024 Patient referral to dietitian [facility] Start: 11-20-2024 Referral to occupational therapist [facility] Start: 11-20-2024 Referral to service [facility] Start: 11-20-2024 Vital signs measurements [facility] Start: 11-20-2024 Patient discharge [facility] Start: 11-19-2024 Inhalation therapy procedure [facility] Start: 11-18-2024 Administration of blood product [facility] Start: 11-18-2024 Removal of urinary catheter [facility] Start: 11-17-2024 Following clinical pathway protocol [facility] Start: 11-17-2024 Ambulation without limitation [facility] Start: 11-17-2024 Assessment of risk of venous thromboembolism [facility] Start: 11-17-2024 Continuous pulse oximetry [facility] Start: 11-17-2024 Elevation of head of bed [facility] Start: 11-17-2024 Insertion of catheter into peripheral vein [facility] Start: 11-17-2024 Measuring intake and output [facility] Start: 11-17-2024 Oxygen therapy [facility] Start: 11-17-2024 Patient referral to dietitian [facility] Start: 11-17-2024 Providing care according to standard [facility] Start: 11-17-2024 Provision of activity privileges [facility] Start: 11-17-2024 Referral to occupational therapist [facility] Start: 11-17-2024 Referral to service [facility] Start: 11-17-2024 Removal of urinary catheter [facility] Start: 11-17-2024 Vascular disease risk assessment [facility] Start: 11-17-2024 Vital signs measurements [facility] Start: 11-17-2024 [facility] Start: 11-17-2024 Admission procedure [facility] Start: 11-12-2024 [facility] Start: 10-18-2024 [facility] Start: 06-24-2024 Advance Directive Discussion Advance Directive Discussion [facility] Start: 04-15-2024 COLOGUARD (FIT-DNA) COLOGUARD (FIT-DNA) [facility] Start: 04-15-2024 COLORECTAL CANCER SCREENING COLORECTAL CANCER SCREENING [facility] Start: 02-23-2024 Covid-19 Vaccine ( season) Covid-19 Vaccine () [facility] Start: 02-23-2024 Influenza vaccination [facility] Start: 06-24-2023 Advance Directive Discussion Advance Directive Discussion [facility] Start: 06-24-2023 Behavioral Health Screening Behavioral Health Screening [facility] Start: 02-22-2023 Covid-19 Vaccine ( season) Covid-19 Vaccine ( season) [facility] Start: 02-22-2023 Influenza vaccination Influenza Vaccine (#1) [facility] Start: 06-24-2022 ADVANCE DIRECTIVE DISCUSSION ADVANCE DIRECTIVE DISCUSSION [facility] Start: 06-24-2022 DEPRESSION ASSESSMENT DEPRESSION ASSESSMENT [facility] Start: 02-22-2022 Influenza vaccination INFLUENZA (#1) [facility] Start: 2021 RSV Vaccine (1 - 1-dose 75+ series) RSV Vaccine (1 - 1-dose 75+ series) [facility] Start: 08-16-2017 End: 02-22-2017 *Hepatic Function Panel *Hepatic Function Panel [facility] Work Phone: Start: 08-16-2017 End: 02-22-2017 Lipid panel [AGGREGATE] *Lipid Profile CC PCP [facility] Work Phone: Start: 08-01-2017 End: 08-01-2017 Appointment Appointment [facility] Work Phone: Start: 07-22-2017 End: 07-22-2017 Appointment Appointment [facility] Work Phone: Start: 05-03-2017 End: 05-03-2017 Appointment [facility] Work Phone: Start: 02-01-2017 End: 02-01-2017 Appointment Appointment [facility] Work Phone: Start: 02-01-2017 End: 02-01-2017 Appointment Appointment [facility] Work Phone: Start: 02-01-2017 End: 02-13-2017 *Hepatic Function Panel *Hepatic Function Panel [facility] Work Phone: Start: 02-01-2017 End: 02-01-2017 Follow Up Appt 3 months Follow Up Appt 3 months [facility] Work Phone: Start: 02-01-2017 End: 02-01-2017 Follow Up Appt 6 months Follow Up Appt 6 months [facility] Work Phone: Start: 02-01-2017 End: 02-13-2017 Lipid panel [AGGREGATE] *Lipid Profile CC PCP [facility] Work Phone: Start: 02-01-2017 End: 02-01-2017 MMM MMM [facility] Work Phone: Start: 02-01-2017 End: 02-01-2017 Pacer Clinic [facility] Work Phone: Start: 01-23-2017 End: 01-23-2017 Appointment Appointment [facility] Work Phone: Start: 01-23-2017 End: 01-23-2017 Appointment Appointment [facility] Work Phone: Start: 01-23-2017 End: 01-23-2017 [facility] Work Phone: Start: 01-23-2017 End: 01-23-2017 Follow Up Appt 6 months Follow Up Appt 6 months [facility] Work Phone: Start: 11-01-2016 End: 11-01-2016 Appointment Appointment [facility] Work Phone: Start: 11-01-2016 End: 11-01-2016 Follow Up Appt 3 months Follow Up Appt 3 months [facility] Work Phone: Start: 11-01-2016 End: 11-01-2016 Pulmonary Function Test - complete Pulmonary Function Test - complete [facility] Work Phone: Start: 11-01-2016 End: 11-01-2016 Pulmonary stress test/simple Pulmonary stress testing; simple (eg, 6-minute walk) [facility] Work Phone: Start: 06-28-2016 End: 06-28-2016 *BMP *BMP [facility] Work Phone: Start: 06-28-2016 End: 06-28-2016 *CBC with Differential *CBC with Differential [facility] Work Phone: Start: 06-28-2016 End: 06-28-2016 *Hepatic Function Panel *Hepatic Function Panel [facility] Work Phone: Start: 06-28-2016 End: 06-28-2016 COMPLIANCE TESTING ANALYST COMPLIANCE TESTING ANALYST [facility] Work Phone: Start: 06-28-2016 End: 06-28-2016 Follow Up Appt 3 months Follow Up Appt 3 months [facility] Work Phone: Start: 06-28-2016 End: 06-28-2016 Follow Up Appt 6 months Follow Up Appt 6 months [facility] Work Phone: Start: 06-28-2016 End: 06-28-2016 Lipid panel [AGGREGATE] *Lipid Profile CC PCP [facility] Work Phone: Start: 06-28-2016 End: 06-28-2016 Pacer Clinic Pacer Clinic [facility] Work Phone: Start: 03-20-2016 End: 06-13-2016 Follow Up Appt 3 months Follow Up Appt 3 months [facility] Work Phone: Start: 03-20-2016 End: 06-13-2016 Pacer Clinic Pacer Clinic [facility] Work Phone: Start: 01-11-2016 End: 06-28-2016 *Hepatic Function Panel *Hepatic Function Panel [facility] Work Phone: Start: 01-11-2016 End: 06-28-2016 Lipid panel [AGGREGATE] *Lipid Profile CC PCP [facility] Work Phone: Start: 12-30-2015 End: 12-30-2015 Follow Up Appt 6 months Follow Up Appt 6 months [facility] Work Phone: Start: 12-30-2015 End: 12-30-2015 MMM MMM [facility] Work Phone: Start: 12-30-2015 End: 12-30-2015 Nuclear stress test -exercise Nuclear stress test -exercise [facility] Work Phone: Start: 12-19-2015 End: 06-13-2016 Follow Up Appt 3 months Follow Up Appt 3 months [facility] Work Phone: Start: 12-19-2015 End: 06-13-2016 Pacer Clinic Pacer Clinic [facility] Work Phone: Start: 09-07-2015 End: 06-13-2016 Follow Up Appt 3 months Follow Up Appt 3 months [facility] Work Phone: Start: 09-07-2015 End: 06-13-2016 Pacer Clinic Pacer Clinic [facility] Work Phone: Start: 07-13-2015 End: 07-13-2015 *Hepatic Function Panel *Hepatic Function Panel [facility] Work Phone: Start: 07-13-2015 End: 07-13-2015 Lipid panel [AGGREGATE] *Lipid Profile CC PCP [facility] Work Phone: Start: 07-06-2015 End: 07-13-2015 *BMP *BMP [facility] Work Phone: Start: 07-06-2015 End: 07-13-2015 CBC W Auto Differential panel - Blood *CBC without Diff [facility] Work Phone: Start: 07-06-2015 End: 07-06-2015 COMPLIANCE TESTING ANALYST COMPLIANCE TESTING ANALYST [facility] Work Phone: Start: 07-06-2015 End: 07-06-2015 Echocardiography Echocardiogram (complete) [facility] Work Phone: Start: 07-06-2015 End: 07-06-2015 Follow Up Appt 6 months Follow Up Appt 6 months [facility] Work Phone: Start: 07-06-2015 End: 07-06-2015 Follow Up Appt Other Follow Up Appt Other [facility] Work Phone: Start: 06-01-2015 End: 06-29-2015 Follow Up Appt 3 months Follow Up Appt 3 months [facility] Work Phone: Start: 06-01-2015 End: 06-29-2015 Pacer Clinic [facility] Work Phone: Start: 03-02-2015 End: 06-29-2015 Follow Up Appt 3 months Follow Up Appt 3 months [facility] Work Phone: Start: 03-02-2015 End: 06-29-2015 Pacer Clinic Pacer Clinic [facility] Work Phone: Start: 12-30-2014 End: 12-30-2014 Follow Up Appt 6 months Follow Up Appt 6 months [facility] Work Phone: Start: 12-30-2014 End: 12-30-2014 MMM MMM [facility] Work Phone: Start: 11-24-2014 End: 12-30-2014 Follow Up Appt 3 months Follow Up Appt 3 months [facility] Work Phone: Start: 11-24-2014 End: 12-30-2014 [facility] Work Phone: Start: 10-19-2014 End: 01-10-2015 *Hepatic Function Panel *Hepatic Function Panel [facility] Work Phone: Start: 10-19-2014 End: 01-10-2015 Lipid panel [AGGREGATE] *Lipid Profile CC PCP [facility] Phone: Start: 08-17-2014 End: 12-30-2014 Follow Up Appt 3 months Follow Up Appt 3 months [facility] Work Phone: Start: 08-17-2014 End: 12-30-2014 [facility] [facility] [place] [facility] Work Phone: Start: 06-04-2014 End: 06-04-2014 COMPLIANCE TESTING ANALYST COMPLIANCE TESTING ANALYST [facility] Work Phone: Start: 06-04-2014 End: 06-04-2014 Follow Up Appt 6 months Follow Up Appt 6 months [facility] Work Phone: Start: 06-04-2014 End: 06-04-2014 Magnesium *Magnesium [facility] Work Phone: Start: 05-12-2014 End: 05-19-2014 Follow Up Appt 3 months Follow Up Appt 3 months [facility] Work Phone: Start: 05-12-2014 End: 05-19-2014 Pacer Clinic Pacer Clinic [facility] Work Phone: Start: 04-19-2014 End: 04-20-2014 *BMP *BMP [facility] Work Phone: Start: 04-19-2014 End: 04-20-2014 *Hepatic Function Panel *Hepatic Function Panel [facility] Work Phone: Start: 04-19-2014 End: 04-20-2014 Lipid panel [AGGREGATE] *Lipid Profile CC PCP [facility] Work Phone: Start: 02-04-2014 End: 05-19-2014 Follow Up Appt 3 months Follow Up Appt 3 months [facility] Work Phone: Start: 02-04-2014 End: 05-19-2014 Pacer Clinic Pacer Clinic [facility] Work Phone: Start: 12-03-2013 End: 12-03-2013 Follow Up Appt 6 months Follow Up Appt 6 months [facility] Work Phone: Start: 12-03-2013 End: 12-03-2013 MMM MMM [facility] Work Phone: Start: 11-04-2013 End: 04-20-2014 Follow Up Appt 3 months Follow Up Appt 3 months [facility] Work Phone: Start: 11-04-2013 End: 04-20-2014 Pacer Clinic Pacer Clinic [facility] Work Phone: Start: 08-05-2013 End: 04-20-2014 Follow Up Appt 3 months Follow Up Appt 3 months [facility] Work Phone: Start: 08-05-2013 End: 04-20-2014 Pacer Clinic Pacer Clinic [facility] Work Phone: Start: 06-01-2013 End: 06-10-2013 *BMP *BMP [facility] Work Phone: Start: 06-01-2013 End: 06-01-2013 COMPLIANCE TESTING ANALYST COMPLIANCE TESTING ANALYST [facility] Work Phone: Start: 06-01-2013 End: 06-01-2013 Electrocardiogram, complete EKG (In office) [facility] Phone: Start: 06-01-2013 End: 06-01-2013 Follow Up Appt 6 months Follow Up Appt 6 months [facility] Phone: Start: 05-04-2013 End: 06-01-2013 Follow Up Appt 3 months Follow Up Appt 3 months [facility] Work Phone: Start: 05-04-2013 End: 06-01-2013 Pacer Clinic Pacer Clinic [facility] Phone: Start: 01-30-2013 End: 06-01-2013 Follow Up Appt 3 months Follow Up Appt 3 months [facility] Phone: Start: 01-30-2013 End: 06-01-2013 Pacer Clinic Pacer Clinic [facility] Phone: Start: 12-02-2012 End: 12-02-2012 Follow Up Appt 6 months Follow Up Appt 6 months [facility] Phone: Start: 12-02-2012 End: 12-02-2012 MMM MMM [facility] Phone: Start: 09-29-2012 End: 06-01-2013 Follow Up Appt 3 months Follow Up Appt 3 months [facility] Phone: Start: 09-29-2012 End: 06-01-2013 Pacer Clinic Pacer Clinic [facility] Phone: Start: 09-24-2012 End: 10-02-2012 *BMP *BMP [facility] Phone: Start: 09-24-2012 End: 10-02-2012 *CBC with Differential *CBC with Differential [facility] Phone: Start: 09-24-2012 End: 10-02-2012 *Hepatic Function Panel *Hepatic Function Panel [facility] Work Phone: Start: 09-24-2012 End: 10-02-2012 Lipid panel [AGGREGATE] *Lipid Profile [facility] Work Phone: Start: 09-24-2012 End: 10-02-2012 Magnesium *Magnesium [facility] Work Phone: Start: 09-24-2012 End: 10-02-2012 Thyroid stimulating hormone (TSH) *TSH [facility] Work Phone: Start: 09-24-2012 End: 10-02-2012 Thyroxine (T4) *T4 (Total) [facility] Work Phone: Start: 09-15-2012 End: 09-15-2012 Follow Up Appt 3 months Follow Up Appt 3 months [facility] Phone: Start: 09-10-2012 End: 09-15-2012 *Hepatic Function Panel *Hepatic Function Panel [facility] Work Phone: Start: 09-10-2012 End: 09-15-2012 Lipid panel [AGGREGATE] *Lipid Profile [facility] Phone: Start: 06-12-2012 End: 06-12-2012 Follow Up Appt 3 months Follow Up Appt 3 months [facility] Work Phone: Start: 04-24-2012 End: 04-10-2012 *BMP *BMP [facility] Work Phone: Start: 03-27-2012 End: 05-26-2012 *Hepatic Function Panel *Hepatic Function Panel [facility] Work Phone: Start: 03-27-2012 End: 04-10-2012 Electrocardiogram, complete EKG (In office) [facility] Phone: Start: 03-27-2012 End: 03-27-2012 Follow Up Appt 2 months Follow Up Appt 2 months [facility] Work Phone: Start: 03-27-2012 End: 03-27-2012 Follow Up Appt Other Follow Up Appt Other [facility] Phone: Start: 03-27-2012 End: 05-26-2012 Lipid panel [AGGREGATE] *Lipid Profile [facility] Phone: Start: 11-09-2011 BONE DENSITY BONE DENSITY [facility] Start: 11-09-2011 Bone Density Screening Bone Density Screening [facility] Start: 11-09-2011 PNEUMOCOCCAL: 65+ (1 - PCV) PNEUMOCOCCAL: 65+ (1 - PCV) [facility] Start: 11-09-2011 Screening for osteoporosis Bone Density Screening [facility] Start: 2006 RSV Vaccine (1 - 1-dose 60+ series) RSV Vaccine (1 - 1-dose 60+ series) [facility] Start: 1996 Pneumococcal Vaccine: 50+ (1 of 1 - PCV) Pneumococcal Vaccine: 50+ (1 of 1 - PCV) [facility] Start: 1996 SHINGRIX VACCINE (1 of 2) SHINGRIX VACCINE (1 of 2) [facility] Start: 11-09-1991 Colonoscopy COLONOSCOPY [facility] Start: 11-09-[address] COLONOGRAPHY [facility] Start: 11-09-1991 DIABETES SCREEN DIABETES SCREEN [facility] Start: 11-09-1991 Diabetes Screening Diabetes Screening [facility] Start: 11-09-1991 FECAL OCCULT BLOOD FECAL OCCULT BLOOD [facility] Start: 11-09-1991 SIGMOIDOSCOPY SIGMOIDOSCOPY [facility] Start: 1965 Urine microalbumin profile [facility] Start: 1964 Anxiety Screening Anxiety Screening [facility] Start: 1964 Depression Screening Depression Screening [facility] Start: 1964 HEPATITIS C SCREENING HEPATITIS C SCREENING [facility] Start: 1964 Hepatitis C screening Hepatitis C Screening [facility] Start: 1952 Pneumococcal Vaccine: 65+ (1 - PCV) Pneumococcal Vaccine: 65+ (1 - PCV) [facility] Start: 1952 Pneumococcal Vaccine: 65+ (1 of 2 - PCV) Pneumococcal Vaccine: 65+ (1 of 2 - PCV) [facility] Start: 05-11-1947 COVID-19 VACCINE (#1) COVID-19 VACCINE (#1) [facility] Anion gap in Serum o r [facility] Anion gap in Serum o r Plasma [facility] Anion gap in Serum o r Plasma [facility] Anion gap in Serum o r Plasma [facility] Basic metabolic 2008 panel with ionized calcium - Serum or Plasma [facility] BUN/Creatinine ratio [facility] BUN/Creatinine ratio [facility] BUN/Creatinine ratio [facility] BUN/Creatinine ratio [facility] Calcium [Mass/volume ] in Serum or Plasma [facility] Calcium [Mass/volume ] in Serum or Plasma [facility] Calcium [Mass/volume ] in Serum or Plasma [facility] Calcium [Mass/volume ] in Serum or Plasma [facility] Carbon dioxide, tota l [Moles/volume] in Central venous blood [facility] Carbon dioxide, tota l [Moles/volume] in Central venous blood [facility] Carbon dioxide, tota l [Moles/volume] in Central venous blood [facility] Carbon dioxide, tota l [Moles/volume] in Central venous blood [facility] CBC W Auto Different ial panel - Blood [facility] Creatinine [Mass/vol ume] in Serum or Plasma [facility] Creatinine [Mass/vol ume] in Serum or Plasma [facility] Creatinine [Mass/vol ume] in Serum or Plasma [facility] Creatinine [Mass/vol ume] in Serum or [facility] CT of abdominal aort a with contrast [facility] Erythrocyte mean corpuscular volume determination [facility] Erythrocyte mean corpuscular volume determination [facility] Erythrocyte mean corpuscular volume determination [facility] Erythrocyte mean corpuscular volume determination [facility] Glucose [Mass/volume ] in Serum or Plasma [facility] Glucose [Mass/volume ] in Serum or Plasma [facility] Glucose [Mass/volume ] in Serum or Plasma [facility] Glucose [Mass/volume ] in Serum or Plasma [facility] Hematocrit [Volume Fraction] of Blood [facility] Hematocrit [Volume Fraction] of Blood [facility] Hematocrit [Volume Fraction] of Blood [facility] Hematocrit [Volume Fraction] of Blood [facility] Hemoglobin [Mass/vol ume] in Blood [facility] Hemoglobin [Mass/vol ume] in Blood [facility] Hemoglobin [Mass/vol ume] in Blood [facility] Hemoglobin [Mass/vol ume] in Blood [facility] Leukocytes [#/volume ] in Blood [facility] Leukocytes [#/volume ] in Blood [facility] Leukocytes [#/volume ] in Blood [facility] Leukocytes [#/volume ] in Blood [facility] Lipid 1996 panel - S juany or Plasma [facility] Work Phone: Mean corpuscular hem oglobin concentration determination [facility] Mean corpuscular hem oglobin concentration determination [facility] Mean corpuscular hem oglobin concentration determination [facility] Mean corpuscular hem oglobin concentration determination [facility] Mean corpuscular hem oglobin determination [facility] Mean corpuscular hem oglobin determination [facility] Mean corpuscular hem oglobin determination [facility] Mean corpuscular hem oglobin determination [facility] Measurement of renal function [facility] Measurement of renal function [facility] Measurement of renal function [facility] Measurement of renal function [facility] Neutrophil count [facility] Neutrophil count [facility] Neutrophil count [facility] Neutrophil count [facility] Neutrophil percent differential count [facility] Neutrophil percent differential count [facility] Neutrophil percent differential count [facility] Neutrophil percent differential count [facility] Patient Education [facility] Work Phone: Patient referral [facility] Work Phone: Platelets [#/volume] in Blood [facility] Platelets [#/volume] in Blood [facility] Platelets [#/volume] in Blood [facility] Platelets [#/volume] in Blood [facility] Potassium measurement [facility] Potassium measurement [facility] Potassium measurement [facility] Potassium measurement [facility] Red blood cell count [facility] Red blood cell count [facility] Red blood cell count [facility] Red blood cell count [facility] Red cell distributio n width determination [facility] Red cell distributio n width determination [facility] Red cell distributio n width determination [facility] Red cell distributio n width determination [facility] Serum chloride measurement [facility] Serum chloride measurement [facility] Serum chloride measurement [facility] Serum chloride measurement [facility] Sodium measurement [facility] Sodium measurement [facility] Sodium measurement [facility] Sodium measurement [facility] Urea nitrogen [Mass/ volume] in Serum or Plasma [facility] Urea nitrogen [Mass/ volume] in Serum or Plasma [facility] Urea nitrogen [Mass/ volume] in Serum or Plasma [facility] Urea nitrogen [Mass/ volume] in Serum or Plasma [facility] Immunizations Immunization Date Immunization Notes Care Provider Fa [facility] 05-07-2020 Influenza High-Dose Quadrivalent Dr. Jolanta Grant MD Work Phone: [facility] 03-20-2004 TD(adult) unspecifie d formulation Dr. Jolanta Grant MD Work Phone: [facility] Payers Date Payer Category Payer Self-pay [id number] 2014 Medicare [id number] Unknown [id number] 2.16.8 40.1.376091.3.579.2.462 Unknown [id number] 2.16.8 40.1.295135.3.579.2.462 Unknown [id number] 2.16.8 40.1.278118.3.579.2.462 Unknown [id number] 2.16.8 40.1.667067.3.579.2.462 Unknown [id number] 2.16.8 40.1.140973.3.579.2.462 Unknown [id number] 2.16.8 40.1.563338.3.579.2.462 Unknown [id number] 2.16.8 40.1.062807.3.579.2.462 Unknown [id number] 2.16.8 40.1.603313.3.579.2.462 Unknown [id number] 2.16.8 40.1.042393.3.579.2.462 Unknown [id number] 2.16.8 40.1.490754.3.579.2.462 Unknown [id number] 2.16.8 40.1.271816.3.579.2.462 Unknown [id number] 2.16.8 40.1.368867.3.579.2.462 Unknown [id number] 2.16.8 40.1.167704.3.579.2.462 Unknown [id number] 2.16.8 40.1.190390.3.579.2.462 Unknown [id number] 2.16.8 40.1.083316.3.579.2.462 Unknown [id number] 2.16.8 40.1.357617.3.579.2.462 Unknown [id number] 2.16.8 40.1.755182.3.579.2.462 Unknown [id number] 2.16.8 40.1.467103.3.579.2.462 Unknown [id number] 2.16.8 40.1.302183.3.579.2.462 Unknown [id number] 2.16.8 40.1.847122.3.579.2.462 Unknown [id number] 2.16.8 40.1.580567.3.579.2.462 Unknown [id number] 2.16.8 40.1.401660.3.579.2.462 Unknown [id number] 2.16.8 40.1.921498.3.579.2.462 Unknown [id number] 2.16.8 40.1.939334.3.579.2.462 Unknown [id number] 2.16.8 40.1.470969.3.579.2.462 Unknown [id number] 2.16.8 40.1.284661.3.579.2.462 Unknown [id number] 2.16.8 40.1.845016.3.579.2.462 Unknown [id number] 2.16.8 40.1.486964.3.579.2.462 Unknown [id number] 2.16.8 40.1.866923.3.579.2.462 Unknown [id number] 2.16.8 40.1.630596.3.579.2.462 Unknown [id number] 2.16.8 40.1.705442.3.579.2.462 Unknown [id number] 2.16.8 40.1.460905.3.579.2.462 Unknown [id number] 2.16.8 40.1.841418.3.579.2.462 Unknown [id number] 2.16.8 40.1.100408.3.579.2.462 Unknown [id number] 2.16.8 40.1.943611.3.579.2.462 Unknown [id number] 2.16.8 40.1.622933.3.579.2.462 Unknown [id number] 2.16.8 40.1.443323.3.579.2.462 Unknown [id number] 2.16.8 40.1.699758.3.579.2.462 Unknown [id number] 2.16.8 40.1.570693.3.579.2.462 Social History Date Type Detail Facility Start: 09-12-2021 End: 10-16-2022 Tobacco smoking status ARIS Unknown if ever smoked [facility] Start: 12-13-2020 None [facility] Start: 12-13-2020 Homeless [facility] Start: 12-13-2020 Cigarettes [facility] Start: 1945 Sex Assigned At Female [facility] Start: 05-12-2014 End: 11-21-2024 Tobacco smoking status NHIS Smokes tobacco daily [facility] Work Phone: Start: 09-20-2016 Alcohol intake Not Asked [facility] Start: 1945 Sex Assigned At Not on file [facility] Start: 10-01-2017 History of Social function [facility] Start: 10-01-2017 Tobacco use panel [facility] Start: 11-02-2024 Tobacco smoking status NHIS Current Heavy tobacco smoker [facility] NEGATED: Highlighted row Not [facility] Medical Equipment Procedure Code Equipment Code Equipment Origin al Text Equipment Identifier Dates Femoral-femoral crossover arteriogram EPIC VASCULAR STENT FDA Start: 11-17-2024 Femoral-femoral crossover arteriogram FEM-POP ARTERY >30CM FDA Start: 11-17-2024 Femoral-femoral crossover arteriogram [id number] FDA Start: 11-17-2024 Femoral-femoral crossover arteriogram ()[id number] FDA Start: 11-17-2024 Femoral-femoral crossover arteriogram [id number] FDA Start: 11-17-2024 Femoral-femoral crossover arteriogram ()[id number] FDA Start: 11-17-2024 Femoral-femoral crossover arteriogram ()[id number] FDA Start: 11-17-2024 Femoral-femoral crossover arteriogram EPIC VASCULAR STENT FDA Start: 11-17-2024 Femoral-femoral crossover arteriogram FEM-POP ARTERY >30CM FDA Start: 11-17-2024 Femoral-femoral crossover arteriogram EPIC VASCULAR STENT FDA Start: 11-17-2024 Femoral-femoral crossover arteriogram FEM-POP ARTERY >30CM FDA Start: 11-17-2024 Femoral-femoral crossover arteriogram EPIC VASCULAR STENT FDA Start: 11-17-2024 Femoral-femoral crossover arteriogram FEM-POP ARTERY >30CM FDA Start: 11-17-2024 Femoral-femoral crossover arteriogram EPIC VASCULAR STENT FDA Start: 11-17-2024 Femoral-femoral crossover arteriogram FEM-POP ARTERY >30CM FDA Start: 11-17-2024 Femoral-femoral crossover arteriogram EPIC VASCULAR STENT FDA Start: 11-17-2024 Femoral-femoral crossover arteriogram FEM-POP ARTERY >30CM FDA Start: 11-17-2024 Femoral-femoral crossover arteriogram EPIC VASCULAR STENT FDA Start: 11-17-2024 Femoral-femoral crossover arteriogram FEM-POP ARTERY >30CM FDA Start: 11-17-2024 Femoral-femoral crossover arteriogram EPIC VASCULAR STENT FDA Start: 11-17-2024 Femoral-femoral crossover arteriogram FEM-POP ARTERY >30CM FDA Start: 11-17-2024 Femoral-femoral crossover arteriogram FDA Start: 11-17-2024 Femoral-femoral crossover arteriogram FDA Start: 11-17-2024 Femoral-femoral crossover arteriogram FDA Start: 11-17-2024 Femoral-femoral crossover arteriogram FDA Start: 11-17-2024 Femoral-femoral crossover arteriogram FDA Start: 11-17-2024 Femoral-femoral crossover arteriogram FDA Start: 11-17-2024 Femoral-femoral crossover arteriogram FDA Start: 11-17-2024 Femoral-femoral crossover arteriogram FDA Start: 11-17-2024 Femoral-femoral crossover arteriogram FDA Start: 11-17-2024 Femoral-femoral crossover arteriogram FDA Start: 11-17-2024 Femoral-femoral crossover arteriogram FDA Start: 11-17-2024 Femoral-femoral crossover arteriogram FDA Start: 11-17-2024 Femoral-femoral crossover arteriogram FDA Start: 11-17-2024 Femoral-femoral crossover arteriogram FDA Start: 11-17-2024 Femoral-femoral crossover arteriogram EPIC VASCULAR STENT FDA Start: 11-17-2024 Femoral-femoral crossover arteriogram FEM-POP ARTERY >30CM FDA Start: 11-17-2024 Goals Date Patient Goal Desired Activity /State Functional Status Date Assessment Result Facility 12-05-2024 Functional status Up ad rohan;Back to bed [facility] Work Phone: 12-05-2024 Functional status Well [facility] Work Phone: 12-01-2024 Functional status Ambulates;Up ad rohan [facility] Work Phone: 11-20-2024 Functional status Ambulates;Bath room [facility] Work Phone: 05-12-2014 Are you deaf, or do you have serious difficulty hearing No 05/12/2014 2:12 PM Susie Ferrer MA No [facility] 05-12-2014 Are you blind, or do you have serious difficulty seeing, even when wearing glasses No 05/12/2014 2:12 PM Susie Ferrer MA No [facility] 05-12-2014 Do you have serious difficulty walking or climbing stairs No 05/12/2014 2:12 PM Susie Ferrer MA No [facility] 05-12-2014 Do you have difficul ty dressing or bathing No 05/12/2014 2:12 PM Susie Ferrer MA No [facility] 05-12-2014 Because of a physica l, mental, or emotional condition, do you have difficulty doing errands alone such as visiting a physician's office or shopping No 05/12/2014 2:12 PM Susie Ferrer MA No [facility] Mental Status Date Assessment Result Facility 12-05-2024 Cognitive function Voice/Name [facility] Work Phone: 12-03-2024 Cognitive function Appropriate;[facility] Work Phone: 11-30-2024 Cognitive function Voice/Name [facility] Work Phone: 11-22-2024 Cognitive function Appropriate;[facility] Work Phone: 11-20-2024 Cognitive function Voice/Name [facility] Work Phone: 05-12-2014 Because of a physica l, mental, or emotional condition, do you have serious difficulty concentrating, remembering, or making decisions No 05/12/2014 2:12 PM Susie Ferrer MA No [facility] Clinical Notes 08-04-2020 to 05-04-2025 Note Date & Type Note Facility 05-04-2025 Note [facility] 01-22-2025 Radiology Diagnostic study note [facility] 01-07-2025 Discharge summary Note Date/Time January 07, 2025 7:00pm [facility] Physical Therapy [facility] [place] [address] / REHABILITATION SERVICES DISCHARGE SUMMARY MR#: [id number] Acct: [id number] Name: ANA JIMENEZ Rep #: [id number] : 1945 79 From: Radha Martínez Referring Dr.: Dr. Shahid Raya MD Status: [facility] 04/24/18 SELF PAY INSURANCE Discharge Summary D/C summary: It has been my pleasure to treat ANA JIMENEZ referred by Dr. Shahid Raya MD, with the diagnosis of BL Femoral Endarterectomy for a total of 7 visit(s). Discharge Date: Please see the following information for a summary of their discharge status. Subjective Subjective: The left foot the pain is getting worse- she is doing a CT scan- sheis scheduled for the . She feels that that is what is holding her back. The leg feels wonderful but the foot is the problem. It doesn't seem to matter what she does it hurts all the time. She only uses the cane when she is out andabout not when she is at home. Pain Left Foot: Pain Intensity (Out of 10): 8 Overall Improvement % Improvement: 95 Objective Objective/Function: Posture: forward head, rounded shoulders- can correct with verbal cues Gait: straight cane- slightly antalgic- decreased stance on left LE Stairs: asc/desc 8 recip with 1 HR HR/TR: able with UE A SLS: 10 sec ROM: WFL Strength: Core: fair minus Right: Hip: 4+/5 throughout, Knee: 4+/5 Ankle: 4+/5, Extn: 4/5 Left: Flexion: 4/5, Abd/Add: 4-/5, Extn: 4/5, Knee: 4/5, Ankle: 4/5 Flex:HS:mod Goals Goal 1:: Patient will be I with HEP and progression Goal Progress: Goal Met Goal 2:: Patient will ambulate >150 feet without AD safely Goal Progress: Progressing Goal 3:: Patient will asc/desc 8 stairs recip without HR Goal Progress: Progressing Goal 4:: Patient will report 80% improvement Goal Progress: Goal Met Plan Plan: 01/07/25: Discharge to HEP IE: Focus on functional mobility- ambulation, stairs and right LE strength/stabilization HEP Given: reviewed HEP given at TCU D/C Information d/c sentence: If there are questions or concerns regarding this patient's physical therapy, please feel free to call me at [phone]. Thank you for the referral of thispatient. Sincerely, Radha Monroe, DPT Balance/Gait/Functional tests Balance/Special Test Scores Lower Extremity Functional Score: 40 Tug Test: 20-30sec.=variable mobility 30 Second Chair Rise Test Seconds: 13 Improvement % Improvement: 95 <Electronically signed by Radha Monroe DPT> 01/07/25 1512 CC: Dr. Shahid Raya MD; No Primary Care Physician ~ ELR Signed [facility] Work Phone: [phone]) 131-645607-10-2025 [facility]24 History and physical note Author [facility]id [facility] Note Date/Time December 04, 2024 7:47 am [facility] Medical Records Department [address] [place] [address] History & Physical Exam 11/20/242029 MR#: [id number] Acct: [id number] Name: ANA JIMENEZ Rep #:[id number] : 1945 79 From: Shahid Raya MD PCP: Care Physician,No Primary Status :ADM IN Location: [place] [address] HPI - General General Date of Admission: 11/20/24 Date of Service: 11/20/24 Chief Complaint: Here for rehabilitation. HPI Narrative ANA JIMNEEZ, is a 79 Female who presents with followin11/17/2024 Admit [facility]. CTA with runoff showed bilateral lower extremity PAOD. 11/17/2024 Dr. Dc performed right common and external iliac artery intravascular lithotripsy, angioplasty, and stent. Right femoral endarterectomy. Right to left femoral-femoral bypass with cadaver graft. Bilateral sartorius flaps. 11/18/2024 Tolerating clear liquid diet. Left hallux pain, right groin incisional pain. Blood pressure low. Replace K 3.1. D/C paula D/C art-line, regular diet, PT/OT. 11/19/2024 Tired from therapy. Hemoglobin 7.8, transfuse 1 unit PRBC, Hemoglobin 9.3 afterwards. Prevena VAC to bilateral inguinal incision sites thru 11/25/2024. Blood pressure improved. PT/OT. 11/20/2024 Admit to TCU with debility, here for rehabilitation, strengthening, prior to discharge home with spouse/family. [facility] Medical History (Updated 11/20/24 @ 20:37 [...] mg PO DAILY@0800 bloo d thinner 09/27/16 11/20/24 08:50 History nitroglycerin 0.4 mg sublingual 0.4 mg sublingual Q5-1 5M PRN chest 10/16/22 Unknown Rx tablet pain #25 tabs potassium chloride 10 mEq 20 meq (2 x 10 mEq) PO DAILY 10/21/23 11/20/24 08:50 Rx capsule,extended release supplement #180 caps vitamin D3 125 mcg (5,000 1 cap PO DAILY supplement 11/16/24 History unit)-vitamin K2 100 mcg capsule carvedilol 12.5 mg tablet (Coreg) 12.5 mg PO BID bp #1 80 tabs 03/16/24 11/20/24 16:15 Rx lisinopril 20 mg tablet 20 mg PO BID bp #180 tabs 11/16/24 Rx clopidogrel 75 mg tablet 75 mg PO DAILY blood thinner #90 10/27/24 11/20/24 08:50 Rx tabs atorvastatin 80 mg tablet 80 mg PO QHS cholesterol 06/1711/19/24 22:00 History calcium carbonate 500 1 - 2 tab PO .as directed TX N 11/02/24 Unknown History mg-simethicone 20 mg chewable reflux tablet furosemide 40 mg tablet 40 mg PO DAILY dieretic 10/2211/20/24 08:50 History magnesium sulfate 1 ea topical TID 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 11/02/24 Unknown History acetaminophen 500 mg tablet 1,000 mg (2 x 500 mg) PO Q 8 Pain 11/20/24 11/20/24 13:30 Rx #0 tabs docusate sodium 100 mg capsule 100 mg PO BID PRN PRN C onstipation 11/20/24 11/20/24 13:30 Rx #0 caps oxycodone 5 mg tablet 5 mg PO Q8H PRN PRN Pain Sco re 11/20/24 11/20/24 16:10 Rx 4-10 5 days #15 [...] you feel safe at home: Yes ROS Constitutional Constitutional: Reports weakness; Denies chills, fever(s) or weight gain ENT HEENT: Denies headache(s), nasal congestion or nasal discharge Cardiovascular Cardiovascular: Denies chest pain or palpitations Respiratory/Chest Respiratory/Chest: Denies cough, excessive phlegm production or shortness of breath with exertion Gastrointestinal Gastrointestinal: Denies abdominal pain, nausea or vomiting Genitourinary Genitourinary: Denies dysuria Musculoskeletal Musculoskeletal: Denies joint pain or joint swelling Integumentary Integumentary: Denies rash or wounds Neurologic Neurologic: Denies focal weakness, numbness or tingling Psychiatric Psychiatric: Denies anxiety, auditory hallucinations, depression, homicidal ideation or suicidal ideation Vital Signs Vital Signs Vital Signs: 11/20/24 17:59 Temperature 96.7 F L Temperature Source Temporal Pulse Rate 60 Respiratory Rate 14 Blood Pressure 100/57 L Blood Pressure Mean 71 Blood Pressure Source Monitor Blood Pressure Position Semi-Fowlers Blood Pressure Location Left Arm Pulse Ox 97 Oxygen Delivery Method Room Air Weight Weight: 65.459 kg Body Mass Index (BMI) 26.4 Physical Exam Const alert General Appearance: cooperative HEENT normocephalic Eyes PERRL and EOMs intact bilaterally Neck supple, no JVD and no carotid bruits Resp normal respiratory effort, normal air movement and clear to auscultation bilaterally Cardio regular rate and regular rhythm GI normal to inspection, nondistended, normoactive bowel sounds, non-tender and non-distended Extremity normal capillary refill Extremity Narrative: Bilateral inguinal prevena VAC intact. 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 Dc, postoperative course complicated by postoperative anemia requiring transfusion, transient hypotension, admitted to TCU with debility, here for rehabilitation, strengthening, prior to discharge home with spouse/family. * Debility - PT/OT. * Pain - Tylenol 1000mg q8, Oxycodone 5mg q4 prn pain (4-10). * Bowel - senna/colace 1 tablet bid, Magnesium citrate 300mL daily prn. * Adult immunization - Administer pneumonia vaccine, covid vaccine, flu vaccine as appropriate. * DVT prophylaxis - Hold, on dual antiplatelet therapy. * Bilateral lower extremity pad s/p revascularization - Asprin 81mg daily, Plavix 75mg daily, consult Tiana Wood to follow, prevena VAC thru 11/25/2024. * Hyperlipidemia - Atorvastatin 80mg qhs. * Indigestion - TUMS 500mg q6 prn. * Chronic HFrEF - Coreg 12.5mg bidcm, Lisinopril 20mg bid, Furosemide 40mg daily. * Vitamin D deficiency - D3 125mcg daily. * Coronary artery disease - Coreg 12.5mg bid, Lisinopril 20mg bid, Plavix 75mg daily, Aspirin 81mg daily, NTG 0.4mg sl q5m prn. * Tobacco abuse - Nicotine 21mg td daily. * Hypokalemia - KCL 20meq daily. 11/20/242043 <Electronically signed by Shahid Raya MD> Cosigner Signature (if applicable): CC: Dr. Shahid Raya MD; No Primary Care Physician~ Signed ADDENDUM by Dr. Shahid Raya MD on 11/25/24 at 0757 Addendum Gas - Simethicone 80mg pchs, order X-ray of abdomen. 11/25/24 0757<Electronically signed by Shahid Raya MD> Cosigner Signature (if applicable): cc: Dr. Shahid Raya MD; No Primary Care Physician ~* Signed ADDENDUM by Dr. Shahid Raya MD on 12/04/24 at 0746 Addendum Insomnia - Melatonin 6mg qhs. 12/04/24 0746<Electronically signed by Shahid Raya MD> Cosigner Signature (if applicable): cc: Dr. Shahid Raya MD; No Primary Care Physician ~* Signed [facility] Work Phone: 1(354) 649-479606-13-2025 History and physical note [facility] Medical Records Department [address] [place] [address] History & Physical Exam 11/20/242029 MR#: [id number] Acct: [id number] Name: ANA JIMENEZ Rep #:[id number] : 1945 79 From: Shahid Raya MD PCP: Care Physician,No Primary Status :ADM IN Location: [place] [address] HPI - General General Date of Admission: 11/20/24 Date of Service: 11/20/24 Chief Complaint: Here for rehabilitation. HPI Narrative ANA JIMENEZ, is a 79 Female who presents with followin11/17/2024 Admit [facility]. CTA with runoff showed bilateral lower extremity [...] strengthening, prior to discharge home with spouse/family. [facility] Medical History (Updated 11/20/24 @ 20:37 [...] mg PO DAILY@0800 bloo d thinner 09/27/16 11/20/24 08:50 History nitroglycerin 0.4 mg sublingual 0.4 mg sublingual Q5-1 5M PRN chest 10/16/22 Unknown Rx tablet pain #25 tabs potassium chloride 10 mEq 20 meq (2 x 10 mEq) PO DAILY 10/21/23 11/20/24 08:50 Rx capsule,extended release supplement #180 caps vitamin D3 125 mcg (5,000 1 cap PO DAILY supplement 11/16/24 History unit)-vitamin K2 100 mcg capsule carvedilol 12.5 mg tablet (Coreg) 12.5 mg PO BID bp #1 80 tabs 03/16/24 11/20/24 16:15 Rx lisinopril 20 mg tablet 20 mg PO BID bp #180 tabs 11/16/24 Rx clopidogrel 75 mg tablet 75 mg PO DAILY blood thinner #90 10/27/24 11/20/24 08:50 Rx tabs atorvastatin 80 mg tablet 80 mg PO QHS cholesterol 06/1711/19/24 22:00 History calcium carbonate 500 1 - 2 tab PO .as directed TX N 11/02/24 Unknown History mg-simethicone 20 mg chewable reflux tablet furosemide 40 mg tablet 40 mg PO DAILY dieretic 10/2211/20/24 08:50 History magnesium sulfate 1 ea topical 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 11/02/24 Unknown History acetaminophen 500 mg tablet 1,000 mg (2 x 500 mg) PO Q 8 Pain 11/20/24 11/20/24 13:30 Rx #0 tabs docusate sodium 100 mg capsule 100 mg PO BID PRN PRN C onstipation 11/20/24 11/20/24 13:30 Rx #0 caps oxycodone 5 mg tablet 5 mg PO Q8H PRN PRN Pain Sco re 11/20/24 11/20/24 16:10 Rx 4-10 5 days #15 [...] you feel safe at home: Yes ROS Constitutional Constitutional: Reports weakness; Denies chills, fever(s) or weight gain ENT HEENT: Denies headache(s), nasal congestion or nasal discharge Cardiovascular Cardiovascular: Denies chest pain or palpitations Respiratory/Chest Respiratory/Chest: Denies cough, excessive phlegm production or shortness of breath with exertion Gastrointestinal Gastrointestinal: Denies abdominal pain, nausea or vomiting Genitourinary Genitourinary: Denies dysuria Musculoskeletal Musculoskeletal: Denies joint pain or joint swelling Integumentary Integumentary: Denies rash or wounds Neurologic Neurologic: Denies focal weakness, numbness or tingling Psychiatric Psychiatric: Denies anxiety, auditory hallucinations, depression, homicidal ideation or suicidal ideation Vital Signs Vital Signs Vital Signs: 11/20/24 17:59 Temperature 96.7 F L Temperature Source Temporal Pulse Rate 60 Respiratory Rate 14 Blood Pressure 100/57 L Blood Pressure Mean 71 Blood Pressure Source Monitor Blood Pressure Position Semi-Fowlers Blood Pressure Location Left Arm Pulse Ox 97 Oxygen Delivery Method Room Air Weight Weight: 65.459 kg Body Mass Index (BMI) 26.4 Physical Exam Const alert General Appearance: cooperative HEENT normocephalic Eyes PERRL and EOMs intact bilaterally Neck supple, no JVD and no carotid bruits Resp normal respiratory effort, normal air movement and clear to auscultation bilaterally Cardio regular rate and regular rhythm GI normal to inspection, nondistended, normoactive bowel sounds, non-tender and non-distended Extremity normal capillary refill Extremity Narrative: Bilateral inguinal prevena VAC intact. 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 Dc, postoperative course complicated by postoperative anemia requiring transfusion, transient hypotension, admitted to [facility], here for rehabilitation, strengthening, prior to discharge home with spouse/family. * Debility - PT/OT. * Pain - Tylenol 1000mg q8, Oxycodone 5mg q4 prn pain (4-10). * Bowel - senna/colace 1 tablet bid, Magnesium citrate 300mL daily prn. * Adult immunization - Administer pneumonia vaccine, covid vaccine, flu vaccine as appropriate. * DVT prophylaxis - Hold, on dual antiplatelet therapy. * Bilateral lower extremity pad s/p revascularization - Asprin 81mg daily, Plavix 75mg daily, consult Tiana Wodo to follow, prevena VAC thru 11/25/2024. * Hyperlipidemia - Atorvastatin 80mg qhs. * Indigestion - TUMS 500mg q6 prn. * Chronic HFrEF - Coreg 12.5mg bidcm, Lisinopril 20mg bid, Furosemide 40mg daily. * Vitamin D deficiency - D3 125mcg daily. * Coronary artery disease - Coreg 12.5mg bid, Lisinopril 20mg bid, Plavix 75mg daily, Aspirin 81mg daily, NTG 0.4mg sl q5m prn. * Tobacco abuse - Nicotine 21mg td daily. * Hypokalemia - KCL 20meq daily. 05/30/25 2044 Cosigner Signature (if applicable): CC: Dr. Shahid Raya MD; No Primary Care Physician~ Signed ADDENDUM by Dr. Shahid Raya MD on 11/25/24 at 0757 Addendum Gas - Simethicone 80mg pchs, order X-ray of abdomen. 11/25/24 0757 Cosigner Signature (if applicable): cc: Dr. Shahid Raya MD; No Primary Care Physician ~* Signed ADDENDUM by Dr. Shahid Raya MD on 12/04/24 at 0746 Addendum Insomnia - Melatonin 6mg qhs. 12/04/24 0746 Cosigner Signature (if applicable): cc: Dr. Shahid Raya MD; No Primary Care Physician ~* Signed [facility]06-[facility]-2025 Discharge summary Author [facility]id [facility] Note Date/Time December 02, 2024 8:26 pm [facility] Medical Records Department [address] [place] [id number] Discharge Summary 12/02/242011 MR#: [id number] Acct: [id number] Name: ANA JIMENEZ Rep #:[id number] : 1945 79 From: Shahid Raya MD PCP: Care Physician,No Primary Status :ADM IN Location: [place] [address] Providers Date of Admission: 11/20/24 Primary Care Physician: No Primary Care Phys Consultations 11/20/24 20:32 Consult: Vascular Surgery Routine Consulting Provider: Tiana Wood Reason for Consult: s/p bilateral lower extremity revascularization surgery. 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 Dc, postoperative course complicated by postoperative anemia requiring transfusion, transient hypotension, admitted to TCU with debility, here for rehabilitation, strengthening, prior to discharge home with spouse/family. * Debility - PT/OT. * Pain - Tylenol 1000mg q8, Oxycodone 5mg q4 prn pain (4-10). * Bowel - senna/colace 1 tablet bid, Magnesium citrate 300mL daily prn. * Adult immunization - Administer pneumonia vaccine, covid vaccine, flu vaccine as appropriate. * DVT prophylaxis - Hold, on dual antiplatelet therapy. * Bilateral lower extremity pad s/p revascularization - Asprin 81mg daily, Plavix 75mg daily, consult Tiana Wood to follow, prevena VAC thru 11/25/2024. * Hyperlipidemia - Atorvastatin 80mg qhs. * Indigestion - TUMS 500mg q6 prn. * Chronic HFrEF - Coreg 12.5mg bidcm, Lisinopril 20mg bid, Furosemide 40mg daily. * Vitamin D deficiency - D3 125mcg daily. * Coronary artery disease - Coreg 12.5mg bid, Lisinopril 20mg bid, Plavix 75mg daily, Aspirin 81mg daily, NTG 0.4mg sl q5m prn. * Tobacco abuse - Nicotine 21mg td daily. * Hypokalemia - KCL 20meq daily. Medications at Discharge Home Medications aspirin 81 [...] tablet 40 mg PO DAILY dieretic 11/02/24 acetaminophen 500 mg tablet 1,000 mg (2 x 500 mg) PO Q8 #0 tabs 12/02/24 oxycodone 5 mg tablet 5 mg PO Q4H PRN PRN Pain Score 4-10 7 days #42 tabs 12/02/24 sennosides 8.6 mg-docusate sodium 50 mg tablet (Stimulant Laxative Plus) 1 tab PO BID 30 days #60 tabs 12/02/24 simethicone 80 mg chewable tablet 80 mg PO PCHS 30 days #120 tabs 12/02/24 Hospital Course Operations - (See below.) Procedures None Summary of Care Provided Minutes Spent on Discharge: 35 Hospital Course: 79 year old female with below past medical history hospitalized with bilateral lower extremity pad, underwent bilateral lower extremity revascularization 11/17/[address] Dc, postoperative course complicated by postoperative anemia requiring transfusion, transient hypotension, admitted to TCU with debility, here for rehabilitation, strengthening, prior to discharge home with spouse/family. Discharge home 12/05/2024, Tindie PT, FWW. FWW: Patient is unsafe to use a cane and requires a walker for ambulation in the home and the community. Physical Exam Const alert General Appearance: cooperative HEENT normocephalic Eyes PERRL and EOMs intact bilaterally Neck supple, no JVD and no carotid bruits Resp normal respiratory effort, normal air movement and clear to auscultation bilaterally Cardio regular rate and regular rhythm GI normal to inspection, nondistended, normoactive bowel sounds, non-tender and non-distended Extremity normal capillary refill General Extremity: Negative for edema Skin no rashes or lesions noted General Skin Exam: no breakdown Psych affect normal Appearance: appropriate Weight / BMI Weight Weight: 65.272 kg Body Mass Index (BMI) 26.4 ABG / Lab / Microbiology Data 11/27/24 05:11 11/27/24 05:11 D/C Instructions Discharge Diet: No restrictions Discharge Activity: Return to Normal Activity, May Shower and Use Walker Weight Bearing Status: Weight bearing as tolerated Call your doctor if you observe: Fever of 101 or Higher, Inability to urinate, Inability to have a bowel movement, Shortness of breath, Dizziness, Fainting spells, Swelling in the ankles, Chest pain and Uncontrolled pain DC O2, CPAP, BIPAP Needs Home O2 Discharge instructions: No Additional Instructions: Discharge home 12/05/2024, Tindie PT, FWW. FWW: Patient is unsafe to use a cane and requires a walker for ambulation in the home and the community. Please Follow Up With: Vascular Studies When: 12/11/24 at 0900 and 1000. Meaningful Use Info Meaningful Use Meaningful Use Diagnoses (Choose all that apply): None applicable Ischemic Stroke Statin Dosing Therapy Reference: STATIN DOSE THERAPY REFERENCE: * Patients > 75 years receive moderate or high dose statin therapy. * Patients 75 years or YOUNGER should receive HIGH intensity statin dose unless contraindicated. You will be required to document reason for non-treatment if statin daily dose does not meet guidelines. HIGH DOSE STATIN THERAPY DAILY Atorvastatin > than or = to 40 mg Rosuvastatin > than or = to 20 mg Amlodipine + Atorvastatin > than or = to 2.5/40 mg Ezetimibe + Simvastatin 10/80 mg Simvastatin 80mg Discharge Plan Admission Admit Date/Time: 11/20/24 17:30 Primary Reason for Your Visit: Debility. Attending Provider: Shahid Raya Chi Primary Care Provider: Care Physician,No Primary Consulting Providers: Tiana Wood Instructions Additional Instructions / Restrictions: Discharge home 12/05/2024, Tindie PT, FWW. FWW: Patient is unsafe to use a cane and requires a walker for ambulation in the home and the community. Discharge Orders/Prescriptions Prescriptions: New sennosides-docusate sodium [Stimulant Laxative Plus] 8.6-50 mg Tablet 1 tab PO BID 30 Days Qty: 60 0RF acetaminophen 500 mg Tablet 1,000 mg PO Q8 Qty: 0 0RF simethicone 80 mg Tablet,Chewable 80 mg PO PCHS 30 Days Qty: 120 0RF oxycodone 5 mg Tablet 5 mg PO Q4H PRN PRN (Reason: Pain Score 4-10) 7 Days Qty: 42 0RF Continued nitroglycerin 0.4 mg tablet, sublingual 0.4 mg SUBLINGUAL Q5-15M PRN (Reason: chest pain) Qty: 25 3RF Rx Instructions: until response; do not exceed 3 doses per event vitamin D3-vitamin K2 125 mcg (5,000 unit)-100 mcg capsule 1 cap PO DAILY aspirin 81 MG tablet,chewable 81 mg PO DAILY@0800 atorvastatin 80 mg tablet 80 mg PO QHS Patient Comments: [NO ORIGINAL SIG] calcium carbonate-simethicone 500-20 mg tablet,chewable 1 - 2 tab PO .as directed PRN (Reason: reflux) furosemide 40 mg tablet 40 mg PO DAILY potassium chloride 10 mEq capsule, extended release 20 meq PO DAILY Qty: 180 3RF lisinopril 20 mg tablet 20 mg PO BID Qty: 180 3RF carvedilol [Coreg] 12.5 mg tablet 12.5 mg PO BID Qty: 180 3RF clopidogrel 75 mg tablet 75 mg PO DAILY Qty: 90 3RF Discontinued magnesium sulfate Ointment 1 ea topical TID PRN PRN (Reason: cramps) acetaminophen 500 mg Tablet 1,000 mg PO Q8 Qty: 0 0RF docusate sodium 100 mg Capsule 100 mg PO BID PRN PRN (Reason: Constipation) Qty: 0 0RF oxycodone 5 mg Tablet 5 mg PO Q8H PRN PRN (Reason: Pain Score 4-10) 5 Days Qty: 15 0RF Referrals / Follow Up: Shahid Raya Chi, MD [Med Staff - Active Staff] - Within 1 Week (TCU Transition CareManagement appointment.) Disposition Disposition (needs filled in before D/C Order can be placed): Home, Self Care 12/02/242025 <Electronically signed by Shahid Raya MD> Cosigner Signature (if applicable): CC: Dr. Shahid Raya MD; No Primary Care Physician~ Signed [facility] Work Phone: 1(825) 932-594006-11-2025 Discharge summary [facility] Medical Records Department [address] [place] [address] Discharge Summary 12/02/242011 MR#: [id number] Acct: [id number] Name: ANA JIMENEZ Rep #:[id number] : 1945 79 From: Shahid Raya MD PCP: Care Physician,No Primary Status :ADM IN Location: [place] [address] Providers Date of Admission: 11/20/24 Primary Care Physician: No Primary Care Phys Consultations 11/20/24 20:32 Consult: Vascular Surgery Routine Consulting Provider: Tiana Wood Reason for Consult: s/p bilateral lower extremity revascularization surgery. 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 Dc, postoperative course complicated by postoperative anemia requiring transfusion, transient hypotension, admitted to [facility], here for rehabilitation, strengthening, prior to discharge home with spouse/family. * Debility - PT/OT. * Pain - Tylenol 1000mg q8, Oxycodone 5mg q4 prn pain (4-10). * Bowel - senna/colace 1 tablet bid, Magnesium citrate 300mL daily prn. * Adult immunization - Administer pneumonia vaccine, covid vaccine, flu vaccine as appropriate. * DVT prophylaxis - Hold, on dual antiplatelet therapy. * Bilateral lower extremity pad s/p revascularization - Asprin 81mg daily, Plavix 75mg daily, consult Tiana Wood to follow, prevena VAC thru 11/25/2024. * Hyperlipidemia - Atorvastatin 80mg qhs. * Indigestion - TUMS 500mg q6 prn. * Chronic HFrEF - Coreg 12.5mg bidcm, Lisinopril 20mg bid, Furosemide 40mg daily. * Vitamin D deficiency - D3 125mcg daily. * Coronary artery disease - Coreg 12.5mg bid, Lisinopril 20mg bid, Plavix 75mg daily, Aspirin 81mg daily, NTG 0.4mg sl q5m prn. * Tobacco abuse - Nicotine 21mg td daily. * Hypokalemia - KCL 20meq daily. Medications at Discharge Home Medications aspirin 81 [...] tablet 40 mg PO DAILY dieretic 11/02/24 acetaminophen 500 mg tablet 1,000 mg (2 x 500 mg) PO Q8 #0 tabs 12/02/24 oxycodone 5 mg tablet 5 mg PO Q4H PRN PRN Pain Score 4-10 7 days #42 tabs 12/02/24 sennosides 8.6 mg-docusate sodium 50 mg tablet (Stimulant Laxative Plus) 1 tab PO BID 30 days #60 tabs 12/02/24 simethicone 80 mg chewable tablet 80 mg PO PCHS 30 days #120 tabs 12/02/24 Hospital Course Operations - (See below.) Procedures None Summary of Care Provided Minutes Spent on Discharge: 35 Hospital Course: 79 year old female with below past medical history hospitalized with bilateral lower extremity pad,underwent bilateral lower extremity revascularization 11/17/[address] Dc, postoperative course complicated by postoperative anemia requiring transfusion, transient hypotension, admitted to [facility], here for rehabilitation, strengthening, prior to discharge home with spouse/family. Discharge home 12/05/2024, Tindie PT, FWW. FWW: Patient is unsafe to use a cane and requires a walker for ambulation in the home and the community. Physical Exam Const alert General Appearance: cooperative HEENT normocephalic Eyes PERRL and EOMs intact bilaterally Neck supple, no JVD and no carotid bruits Resp normal respiratory effort, normal air movement and clear to auscultation bilaterally Cardio regular rate and regular rhythm GI normal to inspection, nondistended, normoactive bowel sounds, non-tender and non-distended Extremity normal capillary refill General Extremity: Negative for edema Skin no rashes or lesions noted General Skin Exam: no breakdown Psych affect normal Appearance: appropriate Weight / BMI Weight Weight: 65.272 kg Body Mass Index (BMI) 26.4 ABG / Lab / Microbiology Data 11/27/24 05:11 11/27/24 05:11 D/C Instructions Discharge Diet: No restrictions Discharge Activity: Return to Normal Activity, May Shower and Use Walker Weight Bearing Status: Weight bearing as tolerated Call your doctor if you observe: Fever of 101 or Higher, Inability to urinate, Inability to have a bowel movement, Shortness of breath, Dizziness, Fainting spells, Swelling in the ankles, Chest pain and Uncontrolled pain DC O2, CPAP, BIPAP Needs Home O2 Discharge instructions: No Additional Instructions: Discharge home 12/05/2024, Tindie PT, FWW. FWW: Patient is unsafe to use a cane and requires a walker for ambulation in the home and the community. Please Follow Up With: Vascular Studies When: 12/11/24 at 0900 and 1000. Meaningful Use Info Meaningful Use Meaningful Use Diagnoses (Choose all that apply): None applicable Ischemic Stroke Statin Dosing Therapy Reference: STATIN DOSE THERAPY REFERENCE: * Patients > 75 years receive moderate or high dose statin therapy. * Patients 75 years or YOUNGER should receive HIGH intensity statin dose unless contraindicated. You will be required to document reason for non-treatment if statin daily dose does not meet guidelines. HIGH DOSE STATIN THERAPY DAILY Atorvastatin > than or = to 40 mg Rosuvastatin > than or = to 20 mg Amlodipine + Atorvastatin > than or = to 2.5/40 mg Ezetimibe + Simvastatin 10/80 mg Simvastatin 80mg Discharge Plan Admission Admit Date/Time: 11/20/24 17:30 Primary Reason for Your Visit: Debility. Attending Provider: Shahid Raya Chi Primary Care Provider: Care Physician,No Primary Consulting Providers: Tiana Wood Instructions Additional Instructions / Restrictions: Discharge home 12/05/2024, Tindie PT, FWW. FWW: Patient is unsafe to use a cane and requires a walker for ambulation in the home and the community. Discharge Orders/Prescriptions Prescriptions: New sennosides-docusate sodium [Stimulant Laxative Plus] 8.6-50 mg Tablet 1 tab PO BID 30 Days Qty: 60 0RF acetaminophen 500 mg Tablet 1,000 mg PO Q8 Qty: 0 0RF simethicone 80 mg Tablet,Chewable 80 mg PO PCHS 30 Days Qty: 120 0RF oxycodone 5 mg Tablet 5 mg PO Q4H PRN PRN (Reason: Pain Score 4-10) 7 Days Qty: 42 0RF Continued nitroglycerin 0.4 mg tablet, sublingual 0.4 mg SUBLINGUAL Q5-15M PRN (Reason: chest pain) Qty: 25 3RF Rx Instructions: until response; do not exceed 3 doses per event vitamin D3-vitamin K2 125 mcg (5,000 unit)-100 mcg capsule 1 cap PO DAILY aspirin 81 MG tablet,chewable 81 mg PO DAILY@0800 atorvastatin 80 mg tablet 80 mg PO QHS Patient Comments: [NO ORIGINAL SIG] calcium carbonate-simethicone 500-20 mg tablet,chewable 1 - 2 tab PO .as directed PRN (Reason: reflux) furosemide 40 mg tablet 40 mg PO DAILY potassium chloride 10 mEq capsule, extended release 20 meq PO DAILY Qty: 180 3RF lisinopril 20 mg tablet 20 mg PO BID Qty: 180 3RF carvedilol [Coreg] 12.5 mg tablet 12.5 mg PO BID Qty: 180 3RF clopidogrel 75 mg tablet 75 mg PO DAILY Qty: 90 3RF Discontinued magnesium sulfate Ointment 1 ea topical TID PRN PRN (Reason: cramps) acetaminophen 500 mg Tablet 1,000 mg PO Q8 Qty: 0 0RF docusate sodium 100 mg Capsule 100 mg PO BID PRN PRN (Reason: Constipation) Qty: 0 0RF oxycodone 5 mg Tablet 5 mg PO Q8H PRN PRN (Reason: Pain Score 4-10) 5 Days Qty: 15 0RF Referrals / Follow Up: Shahid Raya Chi, MD [Med Staff - Active Staff] - Within 1 Week (TCU Transition CareManagement appointment.) Disposition Disposition (needs filled in before D/C Order can be placed): Home, Self Care 12/02/242025 Cosigner Signature (if applicable): CC: Dr. Shahid Raya MD; No Primary Care Physician~ Signed [facility]06[facility] Consult note Author Tiana Wood [facility] Note Date/Time November 26, 2024 7:36a m [facility] Medical Records Department [address] [place] [address] Consultation - Surgical 11/24/24 1344 MR#: [id number] Acct: [id number] Name: ANA JIMENEZ Rep #:[id number] : 1945 79 From: Tiana LOCKWOOD PCP: Care Physician,No Primary Status :ADM IN Location: [facility] Assessment & Plan Assessment/Plan (1) Atherosclerosis of poarch arteries of extremities with intermittent claudication, left [...] keep clean and dry. OK for showers, soapand water can rinse over the incision sites, but dry well after. No baths/submerging the incisions in water for at least 2 additional weeks. Vascular exam of the bilateral lower extremities remains stable; + signal in thebypass and bilateral DP/PT. Current L foot tingling pain sounds consistent with reperfusion, continue to monitor and if worsening would obtain arterial duplex and ABIs more urgently. Otherwise, will place these orders to be completed on anoutpatient basis. Please continue with ASA 81mg daily, Plavix 75mg daily, and Atorvastatin 80mg daily. She is currently scheduled for outpatient follow-up in the office on 12/01/24; ifrhina remains in TCU will plan to see her here next week, if she is discharged at that time will see her in the office. HPI Consult Data Date of Consult: 11/24/24 HPI Narrative HPI Narrative: ANA JIMENEZ, is a 79 F who is admitted [...] overall, she still has some expected discomfort atthe groin incision sites but this continues to [...] received 1 unit PRBC postop. Repeat CBC on11/21 showed Hgb uptrending to 9.9. [facility] Medical History (Updated 11/20/24 @ 20:37 [...] mg PO DAILY@0800 bloo d thinner 09/27/16 11/20/24 08:50 History nitroglycerin 0.4 mg sublingual 0.4 mg sublingual Q5-1 5M PRN chest 10/16/22 Unknown Rx tablet pain #25 tabs potassium chloride 10 mEq 20 meq (2 x 10 mEq) PO DAILY 10/21/23 11/20/24 08:50 Rx capsule,extended release supplement #180 caps vitamin D3 125 mcg (5,000 1 cap PO DAILY supplement 11/16/24 History unit)-vitamin K2 100 mcg capsule carvedilol 12.5 mg tablet (Coreg) 12.5 mg PO BID bp #1 80 tabs 03/16/24 11/20/24 16:15 Rx lisinopril 20 mg tablet 20 mg PO BID bp #180 tabs 11/16/24 Rx clopidogrel 75 mg tablet 75 mg PO DAILY blood thinner #90 10/27/24 11/20/24 08:50 Rx tabs atorvastatin 80 mg tablet 80 mg PO QHS cholesterol 06/1711/19/24 22:00 History calcium carbonate 500 1 - 2 tab PO .as directed TX N 11/02/24 Unknown History mg-simethicone 20 mg chewable reflux tablet furosemide 40 mg tablet 40 mg PO DAILY dieretic 10/2211/20/24 08:50 History magnesium sulfate 1 ea 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 No dehiscence, active drainage, erythema, fluctuance, induration, focal edema, ecchymosis. R DP pulse palpable, PT with good doppler signal L DP and PT pulses nonpalpable but strong signals by doppler Good doppler signal through the bypass graft Bilateral feet are appropriately warm, no cyanotic/ruborous discoloration. Skin no rashes or lesions noted Neuro moves all extremities and no focal motor deficits Speech: speech normal Psych mental status grossly normal Appearance: grossly normal Attitude: calm and engaged Activity / Motor Behavior: appropriate eye contact Speech: normal speech Lab / Micro Data 11/21/24 05:10 11/22/24 05:10 Charges/Coding Procedures Integumentary 111xxx-113xx: 64381 Global Visit 11/24/24 1659 <Electronically signed by Tiana LOCKWOOD> Cosigner Signature (if applicable): 11/26/24 0736 <Electronically signed by Crow Dc MD> CC: Dr. Shahid Raya MD; No Primary Care Physician~ Signed [facility] Work Phone: 1(643) 184-271606-05-2025 Consult note [facility] Medical Records Department [address] [place] [address] Consultation - Surgical 11/24/24 1344 MR#: [id number] Acct: [id number] Name: ANA JIMENEZ Rep #:[id number] : 1945 79 From: Tiana LOCKWOOD PCP: Care Physician,No Primary Status :ADM IN Location: [place] [address]-1 Assessment & Plan Assessment/Plan (1) Atherosclerosis of poarch arteries of extremities with intermittent claudication, left [...] keep clean and dry. OK for showers, soapand watercan rinse over the incision sites, but dry well after. No baths/submerging the incisions in water for at least 2 additional weeks. Vascular exam of the bilateral lower extremities remains stable; + signal in thebypass and bilateral DP/PT. Current L foot tingling pain sounds consistent with reperfusion, continue to monitor and ifworsening would obtain arterial duplex and ABIs more urgently. Otherwise, will place these orders to be completed on anoutpatient basis. Please continue with ASA 81mg daily, Plavix 75mg daily, and Atorvastatin 80mg daily. She is currently scheduled for outpatient follow-up in the office on 12/01/24; ifshe remains in TCU will plan to see her here next week, if she is discharged at that time will see her in the office. HPI Consult Data Date of Consult: 11/24/24 HPI Narrative HPI Narrative: ANA JIMENEZ, is a 79 F who is admitted [...] overall, she still has some expected discomfort atthe groin incision sites but this continues to [...] received 1 unit PRBC postop. Repeat CBC on11/21 showed Hgb uptrending to 9.9. PFSH Medical History (Updated 11/20/24 @ 20:37 by [...] mg PO DAILY@0800 bloo d thinner 09/27/16 11/20/24 08:50 History nitroglycerin 0.4 mg sublingual 0.4 mg sublingual Q5-1 5M PRN chest 10/16/22 Unknown Rx tablet pain #25 tabs potassium chloride 10 mEq 20 meq (2 x 10 mEq) PO DAILY 10/21/23 11/20/24 08:50 Rx capsule,extended release supplement #180 caps vitamin D3 125 mcg (5,000 1 cap PO DAILY supplement 11/16/24 History unit)-vitamin K2 100 mcg capsule carvedilol 12.5 mg tablet (Coreg) 12.5 mg PO BID bp #1 80 tabs 03/16/24 11/20/24 16:15 Rx lisinopril 20 mg tablet 20 mg PO BID bp #180 tabs 11/16/24 Rx clopidogrel 75 mg tablet 75 mg PO DAILY blood thinner #90 10/27/24 11/20/24 08:50 Rx tabs atorvastatin 80 mg tablet 80 mg PO QHS cholesterol 06/1711/19/24 22:00 History calcium carbonate 500 1 - 2 tab PO .as directed TX N 11/02/24 Unknown History mg-simethicone 20 mg chewable reflux tablet furosemide 40 mg tablet 40 mg PO DAILY dieretic 10/2211/20/24 08:50 History magnesium sulfate 1 ea 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 No dehiscence, active drainage, erythema, fluctuance, induration, focal edema, ecchymosis. R DP pulse palpable, PT with good doppler signal L DP and PT pulses nonpalpable but strong signals by doppler Good doppler signal through the bypass graft Bilateral feet are appropriately warm, no cyanotic/ruborous discoloration. Skin no rashes or lesions noted Neuro moves all extremities and no focal motor deficits Speech: speech normal Psych mental status grossly normal Appearance: grossly normal Attitude: calm and engaged Activity / Motor Behavior: appropriate eye contact Speech: normal speech Lab / Micro Data 11/21/24 05:10 11/22/24 05:10 Charges/Coding Procedures Integumentary 111xxx-113xx: 38645 Global Visit 11/24/24 1659 Cosigner Signature (if applicable): 11/26/24 0736 CC: Dr. Shahid Raya MD; No Primary Care Physician~ Signed [facility]06-04-2025 Radiology Diagnostic study note [facility] Imaging Services [address], [place] [address] Abdomen Single View MR#: [id number] Acct: [id number] Name: ANA JIMENEZ Rep #: [id number] : 1945 F 79 From: Papi Ashby MD PCP: Care Physician,No Primary Status: ADM IN Study:Abdomen Single View Date of Exam: 11/25/24 Exam# [id number] Ordering Dr: Shahid Raya MD PROCEDURE: ABDOMEN [...] sternotomy. There is multilevel degenerative disc disease ofthe lower lumbar spine. 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 RAD/Abdomen Single View IMPRESSION: No evidence of bowel obstruction. Other findings as noted. Reading Location: [facility] CC: Dr. Shahid Raya MD; No Primary Care Physician ~ Playground Official: Signed [facility] Work Phone: 1(337) 533-371305-31-2025 Progress note Author Andrés Flowers [facility] Note Date/Time November 21, 2024 6:11p m [facility] Medical Records Department [address] [place] [address] Progress Note - Pharmacy 11/21/24 1419 MR#: [id number] Acct: [id number] Name: ANA JIMENEZ Rep #:[id number] : 1945 79 From: Andrés Flowers PCP: Care Physician,No Primary Status :ADM IN Location: TCU TCU04-1 Documented by User: Andrés Flowers 11/21/24 14:34 TCU RX Drug Regimen Review Subjective/Objective Subjective/Objective Subjective: TCU admission note.79 year old female with below past medical history hospitalized with bilateral lower extremity pad, underwent bilateral lower extremity revascularization 11/17/[address] Dc, postoperative course complicated by postoperative anemia requiring transfusion, transient hypotension, admitted to TCU with debility, here for rehabilitation, strengthening, prior to discharge home with spouse/family. Objective: Allergies No Known Allergies Allergy (Verified 11/17/24 06:15) Current Medications Generic Name Dose Route Start Last Admin Trade Name Freq PRN Reason Stop Dose Admin Acetaminophen 1,000 mg 11/20/24 22:00 11/21/24 05:09 Acetaminophen 500 Mg Tablet PO 1,000 mg Q8 LATA Administration Aspirin 81 mg 11/21/24 08:00 11/21/24 09:29 Aspirin 81 Mg Tab.Chew PO 81 mg BREAKFAST LATA Administration Atorvastatin Calcium 80 mg 11/20/24 22:00 11/20/24 22:44 Atorvastatin Calcium 80 Mg Tablet PO 80 mg QHS LATA Administration Calamine/Phenol 1 applic 11/21/24 06:00 11/21/24 05:10 Menthol/Lanolin/Calamine/Znox 113 Gm Tube TOPICAL 1 applic TID LATA Administration Protocol Calcium Carbonate 500 mg 11/20/24 19:41 Calcium Carbonate 500 Mg Tablet PO Q6H PRN PRN reflux Carvedilol 12.5 mg 11/21/24 08:00 11/21/24 09:30 Carvedilol 12.5 Mg Tablet PO 12.5 mg BIDCM [facility] Administration Protocol Cholecalciferol 125 mcg 11/21/24 10:00 11/21/24 09:30 Cholecalciferol (Vit D3) 125 Mcg Capsule (5,000 Units) PO 125 mcg DAILY LATA Administration Clopidogrel Bisulfate 75 mg 11/21/24 10:00 11/21/24 09:30 Clopidogrel Bisulfate 75 Mg Tablet PO 75 mg DAILY [facility] Administration Furosemide 40 mg 11/21/24 10:00 11/21/24 09:30 Furosemide 40 Mg Tablet PO 40 mg DAILY [facility] Administration Protocol Lisinopril 20 mg 11/20/24 22:00 11/21/24 09:29 Lisinopril 20 Mg Tablet PO 20 mg BID [facility] Administration Protocol Magnesium Citrate 300 ml 11/20/24 20:29 Magnesium Citrate 300 Ml PO DAILY PRN Constipation Nicotine 21 mg 11/20/24 21:00 11/21/24 09:30 Nicotine 21 Mg Patch TD Not Given DAILY [facility] Nitroglycerin 0.4 mg 11/20/24 18:41 Nitroglycerin (Inpatient Use) 0.4 Mg Tab.Subl SL Q5M PRN CARDIAC/CHEST PAIN Oxycodone HCl 5 mg 11/20/24 20:30 Oxycodone 5 Mg Tablet PO Q4H PRN PRN Pain Score 4-10 Potassium Chloride 20 meq 11/21/24 08:00 11/21/24 09:30 Potassium Chloride Oral Tablet 20 [facility] Senna/Docusate Sodium 1 tablet 11/20/24 22:00 11/21/24 09:30 Senna/Docusate Sodium 1 Tablet PO 1 tablet BID [facility] Administration Sodium Chloride 10 - 40 ml 11/20/24 18:12 0.9% Saline Lock 10 Ml Syringe IV UD PRN SALINE FLUSH Tuberculin PPD 0.1 ml 11/28/24 10:00 Tuberculin,Purif.Prot.Deriv. 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, left leg (Chronic) PAD (peripheral artery disease) (Acute) Hyperlipemia (Chronic) Vital Signs Temp Pulse Resp BP Pulse Ox O2 Del Method 97.8 F 55 L 16 130/40 H 96 Room Air 11/21/24 04:55 11/21/24 10:00 11/21/24 10:00 11/21/24 04:55 11/21/24 10:00 11/21/24 10:00 Oxygen Delivery Method Room Air Weight: 65.459 kg Body Mass Index (BMI) 26.4 Sodium 139 mmol/L (133-145) 11/21/24 05:10 Potassium 3.8 mmol/L (3.3-5.1) 11/21/24 05:10 Chloride 105 mmol/L (98-108) 11/21/24 05:10 Carbon Dioxide 23.4 mmol/L (21.0-32.0) 11/21/24 05:10 Anion Gap 11 (5-15) 11/21/24 05:10 BUN 12 mg/dL (4-19) 11/21/24 05:10 Creatinine 0.82 mg/dL (0.70-1.20) 11/21/24 05:10 Est GFR (MDRD) Non-Af 73 (>60) 11/21/24 05:10 BUN/Creatinine Ratio 14.8 RATIO (10-20) 11/21/24 05:10 Glucose 103 mg/dL (70-99) H 11/21/24 05:10 Assessment/Plan: 1. Pain: acetaminophen 1000 mg PO Q8H, oxycodone 5 mg PO Q4H PRN pain (4- 1010).The patient has not required any PRN doses of oxycodone so far this admission. Please continue to monitor pain levels, LFTs (no recent LFTs documented), for dizziness/drowsiness, respiratory depression, constipation, and for syncope/ataxia/falls. 2. Bowel: senna/docusate 1 tablet PO BID, magnesium citrate 300 mL PO daily PRN constipation. The patient has not required any PRN doses of magnesium citrate sofar this admission and the patient's last documented bowel movement was on 11/21/24. Please continue to monitor for bowel movements, PRN medication usage, constipation and diarrhea. 3. Bilateral LE PAD s/p revascularization: aspirin 81 mg PO daily, clopidogrel 75 mg PO daily. Please continue to monitor for lower extremity pain, for bleeding/excessive bruising, hemoglobin levels (Hgb = 9.9 g/dL on 11/21/24), platelet counts (Plt = 228 K/mm3 on 11/21/24), and for GI distress with aspirin administration. 4. Chronic HFrEF/coronary artery disease: carvedilol 12.5 mg PO BID with meals, lisinopril 20 mg PO BID, furosemide 40 mg PO daily, nitroglycerin 0.4 mg SL Q5M PRN chest pain. The patient has not required any PRN doses of nitroglycerin so far this admission. Please continue to monitor for s/s of a heart failure exacerbation such as increased lower extremity edema, shortness of breath JVD, for chest pain, for PRN medication usage, blood pressures (recent range = 99-158/40-72 mmHg), heart rates (recent range = 56-63 beast/min), for fatigue, for angioedema, dry cough, renal function (serum creatinine = 0.82 mg/dL with creatinine clearance ~ 50 mL/min on 11/21/24), sodium levels (Na = 139 mmol/L on 11/21/24), potassium levels (K = 3.8 mmol/L on 11/21/24), calcium levels (Ca = 8.8mg/dL on 11/21/24), and for s/s of dehydration. 5. Hyperlipidemia: atorvastatin 80 mg PO QHS. Please continue to monitor lipid levels (no recent lipid levels documented), LFTs (no recent LFTs documented), and for myalgias. Please consider obtaining a lipid panel if clinically indicated. 6. Hypokalemia: potassium chloride 20 mEq PO daily. Please continue to monitor potassium levels (K = 3.8 mmol/L on 11/21/24), for s/s of hypokalemia, and for GIdistress with potassium chloride administration. 7. Tobacco abuse: nicotine 21 mg patch TD daily. Please continue to monitor for s/s of nicotine cravings, and for nightmares. 8. Indigestion: calcium carbonate 500 mg PO Q6H PRN reflux. The patient has not required any PRN doses of calcium carbonate so far this admission. Please continue to monitor for s/s of reflux, for PRN medication administrations, and calcium levels (Ca = 8.8 mg/dL on 11/21/24). 9. Vitamin D deficiency: cholecalciferol 125 mcg PO daily. Please continue to monitor vitamin D levels (no recent vitamin D levels documented) as well as for s/s of vitamin D deficiency. 10. skin irritation: calmoseptine 1 application topically BID. Please continue to monitor for skin irritation and skin integrity. Assessment/Plan for indications treated with psychotropic medications: NA Medical chart and medication regimen reviewed. The following medication irregularities or issues were identified: NA Date Date of Note: 11/21/24 Documented by User: Dr. Shahid Raya MD 11/21/24 18:11 TCU RX Drug Regimen Review Provider Comments Provider responsibility Provider Comments to Recommendations by Pharmacy Agree 11/21/24 1431 <Electronically signed by Andrés Flowers> Andrés Flowers Cosigner Signature (if applicable): 11/21/24 1811 <Electronically signed by Shahid Raya MD> CC: ~ Signed [facility] Work Phone: 1(694) 989-814105-31-2025 Progress note [facility] Medical Records Department [address] [place] [address] Progress Note - Pharmacy 11/21/24 1419 MR#: [id number] Acct: [id number] Name: BARBARAANA M Rep #:[id number] : 1945 79 From: Andrés Flowers PCP: Care Physician,No Primary Status :ADM IN Location: [place] [address]-1 Documented by User: Andrés Flowers 11/21/24 14:34 TCU RX Drug Regimen Review Subjective/Objective Subjective/Objective Subjective: TCU admission note.79 year old female with below past medical history hospitalized withbilateral lower extremity pad, underwent bilateral lower extremity revascularization 11/17/2024 withDrCherise Dc, postoperative course complicated by postoperative anemia requiring transfusion, transient hypotension, admitted to TCU with debility, here for rehabilitation, strengthening, prior to discharge home with spouse/family. Objective: Allergies No Known Allergies Allergy (Verified 11/17/24 06:15) Current Medications Generic Name Dose Route Start Last Admin Trade Name Freq PRN Reason Stop Dose Admin Acetaminophen 1,000 mg 11/20/24 22:00 11/21/24 05:09 Acetaminophen 500 Mg Tablet PO 1,000 mg Q8 LATA Administration Aspirin 81 mg 11/21/24 08:00 11/21/24 09:29 Aspirin 81 Mg Tab.Chew PO 81 mg BREAKFAST LATA Administration Atorvastatin Calcium 80 mg 11/20/24 22:00 11/20/24 22:44 Atorvastatin Calcium 80 Mg Tablet PO 80 mg QHS LATA Administration Calamine/Phenol 1 applic 11/21/24 06:00 11/21/24 05:10 Menthol/Lanolin/Calamine/Znox 113 Gm Tube TOPICAL 1 applic TID LATA Administration Protocol Calcium Carbonate 500 mg 11/20/24 19:41 Calcium Carbonate 500 Mg Tablet PO Q6H PRN PRN reflux Carvedilol 12.5 mg 11/21/24 08:00 11/21/24 09:30 Carvedilol 12.5 Mg Tablet PO 12.5 mg BIDCM LATA Administration Protocol Cholecalciferol 125 mcg 11/21/24 10:00 11/21/24 09:30 Cholecalciferol (Vit D3) 125 Mcg Capsule (5,000 Units) PO 125 mcg DAILY LATA Administration Clopidogrel Bisulfate 75 mg 11/21/24 10:00 11/21/24 09:30 Clopidogrel Bisulfate 75 Mg Tablet PO 75 mg DAILY LATA Administration Furosemide 40 mg 11/21/24 10:00 11/21/24 09:30 Furosemide 40 Mg Tablet PO 40 mg DAILY LATA Administration Protocol Lisinopril 20 mg 11/20/24 22:00 11/21/24 09:29 Lisinopril 20 Mg Tablet PO 20 mg BID LATA Administration Protocol Magnesium Citrate 300 ml 11/20/24 20:29 Magnesium Citrate 300 Ml PO DAILY PRN Constipation Nicotine 21 mg 11/20/24 21:00 11/21/24 09:30 Nicotine 21 Mg Patch TD Not Given DAILY [facility] Nitroglycerin 0.4 mg 11/20/24 18:41 Nitroglycerin (Inpatient Use) 0.4 Mg Tab.Subl SL Q5M PRN CARDIAC/CHEST PAIN Oxycodone HCl 5 mg 11/20/24 20:30 Oxycodone 5 Mg Tablet PO Q4H PRN PRN Pain Score 4-10 Potassium Chloride 20 meq 11/21/24 08:00 11/21/24 09:30 Potassium Chloride Oral Tablet 20 Meq PO 20 meq DAILYCM LATA Administration Senna/Docusate Sodium 1 tablet 11/20/24 22:00 11/21/24 09:30 Senna/Docusate Sodium 1 Tablet PO 1 tablet BID LATA Administration Sodium Chloride 10 - 40 ml 11/20/24 18:12 0.9% Saline Lock 10 Ml Syringe IV UD PRN SALINE FLUSH Tuberculin PPD 0.1 ml 11/28/24 10:00 Tuberculin,Purif.Prot.Deriv. 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, left leg (Chronic) PAD (peripheral artery disease) (Acute) Hyperlipemia (Chronic) Vital Signs Temp Pulse Resp BP Pulse Ox O2 Del Method 97.8 F 55 L 16 130/40 H 96 Room Air 11/21/24 04:55 11/21/24 10:00 11/21/24 10:00 11/21/24 04:55 11/21/24 10:00 11/21/24 10:00 Oxygen Delivery Method Room Air Weight: 65.459 kg Body Mass Index (BMI) 26.4 Sodium 139 mmol/L (133-145) 11/21/24 05:10 Potassium 3.8 mmol/L (3.3-5.1) 11/21/24 05:10 Chloride 105 mmol/L (98-108) 11/21/24 05:10 Carbon Dioxide 23.4 mmol/L (21.0-32.0) 11/21/24 05:10 Anion Gap 11 (5-15) 11/21/24 05:10 BUN 12 mg/dL (4-19) 11/21/24 05:10 Creatinine 0.82 mg/dL (0.70-1.20) 11/21/24 05:10 Est GFR (MDRD) Non-Af 73 (>60) 11/21/24 05:10 BUN/Creatinine Ratio 14.8 RATIO (10-20) 11/21/24 05:10 Glucose 103 mg/dL (70-99) H 11/21/24 05:10 Assessment/Plan: 1. Pain: acetaminophen 1000 mg PO Q8H, oxycodone 5 mg PO Q4H PRN pain (4- 04/02).The patient has notrequired any PRN doses of oxycodone so far this admission. Please continue to monitor pain levels, LFTs (no recent LFTs documented), for dizziness/drowsiness, respiratory depression, constipation, and for syncope/ataxia/falls. 2. Bowel: senna/docusate 1 tablet PO BID, magnesium citrate 300 mL PO daily PRN constipation. The patient has not required any PRN doses of magnesium citrate sofar this admission and the patient's last documented bowel movement was on 11/21/24. Please continue to monitor for bowel movements, PRN medication usage, constipation and diarrhea. 3. Bilateral LE PAD s/p revascularization: aspirin 81 mg PO daily, clopidogrel 75 mg PO daily. Please continue to monitor for lower extremity pain, for bleeding/excessive bruising, hemoglobin levels (Hgb = 9.9 g/dL on 11/21/24), platelet counts (Plt = 228 K/mm3 on 11/21/24), and for GI distress with aspirin administration. 4. Chronic HFrEF/coronary artery disease: carvedilol 12.5 mg PO BID with meals, lisinopril 20 mg POBID, furosemide 40 mg PO daily, nitroglycerin 0.4 mg SL Q5M PRN chest pain. The patient has not required any PRN doses of nitroglycerin so far this admission. Please continue to monitor for s/s of a heart failure exacerbation such as increased lower extremity edema, shortness of breath JVD, for chest pain, for PRN medication usage, blood pressures (recent range = 99-158/40-72 mmHg), heart rates (recent range = 56-63 beast/min), for fatigue, for angioedema, dry cough, renal function (serum creatinine = 0.82 mg/dL with creatinine clearance ~ 50 mL/min on 11/21/24), sodium levels (Na = 139 mmol/Boom 11/21/24), potassium levels (K = 3.8 mmol/L on 11/21/24), calcium levels (Ca = 8.8mg/dL on 11/21/24), and for s/s of dehydration. 5. Hyperlipidemia: atorvastatin 80 mg PO QHS. Please continue to monitor lipid levels (no recent lipid levels documented), LFTs (no recent LFTs documented), and for myalgias. Please consider obtaining a lipid panel if clinically indicated. 6. Hypokalemia: potassium chloride 20 mEq PO daily. Please continue to monitor potassium levels (K = 3.8 mmol/L on 11/21/24), for s/s of hypokalemia, and for GIdistress with potassium chloride administration. 7. Tobacco abuse: nicotine 21 mg patch TD daily. Please continue to monitor for s/s of nicotine cravings, and for nightmares. 8. Indigestion: calcium carbonate 500 mg PO Q6H PRN reflux. The patient has not required any PRN doses of calcium carbonate so far this admission. Please continue to monitor for s/s of reflux, for PRN medication administrations, and calcium levels (Ca = 8.8 mg/dL on 11/21/24). 9. Vitamin D deficiency: cholecalciferol 125 mcg PO daily. Please continue to monitor vitamin D levels (no recent vitamin D levels documented) as well as for s/s of vitamin D deficiency. 10. skin irritation: calmoseptine 1 application topically BID. Please continue to monitor for skin irritation and skin integrity. Assessment/Plan for indications treated with psychotropic medications: NA Medical chart and medication regimen reviewed. The following medication irregularities or issues were identified: NA Date Date of Note: 11/21/24 Documented by User: Dr. Shahid Raya MD 11/21/24 18:11 TCU RX Drug Regimen Review Provider Comments Provider responsibility Provider Comments to Recommendations by Pharmacy Agree 11/21/24 3132 Andrés Concepcion Signature (if applicable): 11/21/24 2861 CC: ~ Signed [facility]05-30-2025 [facility]05-30-2025 [facility]05-28-2025 Progress note Author Tiana Wood [facility] Note Date/Time November 18, 2024 3:04p m [facility] Medical Records Department [address] [place] [address] Progress Note - Surgery 11/18/2423 MR#: [id number] Acct: [id number] Name: ANA JIMENEZ Rep #:[id number] : 1945 79 From: Tiana LOCKWOOD PCP: [...] (Auto) 82.2 H, Lymph % (Auto) 10.8L, [place] % (Auto) 6.0, Eos % (Auto) 0.0, [...] for right common iliac stenting. Reading Location: [place] [address] Physical Exam Const alert, oriented x3 and [...] Assessment & Plan Assessment/Plan (1) Atherosclerosis of poarch arteries of extremities with intermittent claudication, left [...] for SNF/rehab placement. Charges/Coding Procedures Integumentary 111xxx-113xx: 42570 Global Visit 11/18/24 1452 <Electronically signed by Tiana LOCKWOOD> Cosigner Signature (if applicable): 11/18/24 1504 <Electronically signed by Crow Dc MD> CC: ~ Signed [facility] Work Phone: 1(130) 549-829405-28-2025 Progress note [facility] Medical Records Department [address] [place] [address] Progress Note - Surgery 11/18/24 08 MR#: [id number] Acct: [id number] Name: ANA JIMENEZ Rep #:[id number] : 1945 79 From: Tiana LOCKWOOD PCP: [...] (Auto) 82.2 H, Lymph % (Auto) 10.8L, [place] % (Auto) 6.0, Eos % (Auto) 0.0, [...] for right common iliac stenting. Reading Location: [facility] Physical Exam Const alert, oriented x3 and [...] Assessment & Plan Assessment/Plan (1) Atherosclerosis of poarch arteries of extremities with intermittent claudication, left [...] for SNF/rehab placement. Charges/Coding Procedures Integumentary 111xxx-113xx: 96977 Global Visit 11/18/24 1452 Cosigner Signature (if applicable): 11/18/24 1504 CC: ~ Signed [facility]05-27-2025 Consult note Author Haven Mcneil [facility] Note Date/Time November 17, 2024 2:07p michelle [facility] Medical Records Department [address] [place] [address] Anesthesia Postop Eval II 11/17/24 1406 MR#: [id number] Acct: [id number] Name: ANA JIMENEZ Rep #:[id number] : 1945 79 From: Haven gustafson TRAFFIC CONTROL TECHNICIAN PCP: Dr. Jolanta Grant MD Status:ADM IN Y Race: C Location: ICU CVICU 203-1 Anesthesia Postop Eval I Sum Postop Eval Completion status Anesthesia document: Postop Eval 1 completed: Yes Anesthesia Postop Eval I Summary Anesthesia Postop Eval I Summary: Anesthesia Postop Eval I: Assessment Summary Airway patent Yes 11/17/24 14:01 TRAFFIC CONTROL [email or web address] Spontaneous unlabored Yes 11/17/24 14:01 TRAFFIC CONTROL [email or web address] respirations Mental status Awake,Calm, 11/17/24 14:01 TRAFFIC CONTROL [email or web address] Confused nausea No 11/17/24 14:01 TRAFFIC CONTROL [email or web address] Vomiting No 11/17/24 14:01 TRAFFIC CONTROL [email or web address] Anesthesia Postop Eval I: Fluid Summary Crystalloid volume administer 2,500 11/17/24 14:01 TRAFFIC CONTROL [email or web address] (ml) Colloids volume administered ( ml) Blood Product volume administered (ml) Total IV fluid infused 2,500 11/17/24 14:01 TRAFFIC CONTROL [email or web address] Anesthesia Postop Eval I: Summary Notes Anesthesia Complication No 11/17/24 14:01 TRAFFIC CONTROL [email or web address] Anesthesia Complication Comment: Post-operative progress note Anesthesia: Postop Eval II Evaluation Mental status: Awake and Calm Pain Level: 0 nausea: No Vomiting: No Complications Anesthesia Complication: No 11/17/24 1407 <Electronically signed by Haven paris CRNA> Date _ Haven Mcneil CRNA Cosigner Signature: Date CC: ~ Signed [facility] Work Phone: 1(305) 614-471605-27-2025 Consult note Author Lul Hood [facility] Note Date/Time November 17, 2024 2:01p [facility] Medical Records Department [address] [place] [address] Anesthesia Postop Eval I 11/17/24 1400 MR#: [id number] Acct: [id number] Name: ANA JIMENEZ Rep #:[id number] : 1945 79 From: Lul Hood CRNA PCP: Dr. Jolanta Grant MD Status:ADM IN Y Race: C Location: ICU CVICU Anesthesia: Postop Eval I Current Vital Signs [...] Postop Eval 1 completed: Yes 11/17/24 1401 <Electronically signed by Lul way CRNA> Date _ Lul Hood CRNA Cosigner Signature: Date CC: ~ Signed [facility] Work Phone: 1(576) 687-932005-27-2025 Evaluation note* Diagnosis Onset Date Resolution Status Admit Date Atherosclerosis of poarch arteries of extremities with intermittent chronic November 17, 2024 1:22pm Coronary artery disease acute M 2024 5:30pm Debility acute November 20, 2024 5:30pm Hypokalemia acute November 20 5:30pm PAD (peripheral artery disease) acute November 20, 2024 5:30pm Tobacco abuse acute November 20, 025 5:30pm Atherosclerosis of poarch arteries of extremities with intermittent chronic November 20, 2024 5:30pm Chronic HFrEF (heart failure with reduced ejection fraction) chronic November 20 5:30pm Hyperlipemia chronic November 20 5:30pm PAD (peripheral artery disease) acute December 01, 2024 3:05pm PAD (peripheral artery disease) acute December 30, 2024 3:43pm 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 04, 2020 chronic December 31 8:55am Chronic systolic congestive heart failure chronic December 312024 8:55am Ischemic cardiomyopathy chronic J seven 2024 8:55am 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 04, 2020 chronic December 31 8:56am Claudication chronic December 31 8:56am Essential (primary) hypertension chronic December 31, 2024 8:56am Hyperlipemia chronic December 31 8:56am Ischemic cardiomyopathy chronic J 2024 8:56am H/O coronary artery bypass surgery April 28, 1997 resolved December 31 8:56am 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 04, 2020February 12:55pm Claudication chronic February 12:55pm Essential (primary) hypertension chronic March 02 12:55pm Hyperlipemia chronic February 12:55pm Ischemic cardiomyopathy chronic S eptember 2024 12:55pm H/O coronary artery bypass surgery April 28, 1997 resolved February 12:55pm [facility] Work Phone: 1(852) 501-949605-27-2025 Radiology Diagnostic study note [facility] Imaging Services [address] [place] [address] [id number] Fluoroscopy 1 Hr or Less MR#: [id number] Acct: [id number] Name: JIMENEZANA M Rep #: [id number] : 1945 F 79 From: Martín Osborn MD PCP: Dr. Jolanta Grant MD Status: ADM IN Study:Fluoroscopy 1 Hr or Less Date of Exam: 11/17/24 Exam# [id number] Ordering Dr: Olimpia Dc MD PROCEDURE: FLUOROSCOPY 1 HR OR LESS 11/17/2024 REASON FOR EXAM: Right iliac stenting. TECHNIQUE: Standing AP view(s) of the thoracic and lumbar spine.. 12 minutes and 29 seconds of fluoroscopy. 171.28 mGy. COMPARISON: None FINDINGS: Intraoperative fluoroscopic services provided for stenting. RAD/Fluoroscopy 1 Hr or Less IMPRESSION: Intraoperative fluoroscopic services provided for right common iliac stenting. Reading Location: [place] [address] CC: Dr. Crow Dc MD; Dr. Jolanta Grant MD ~ Playground Official: Signed [facility]05-27-2025 Procedure note [facility] Medical Records Department [address] [place] [address] Operative Report 11/17/24 1412 MR#: [id number] Acct: [id number] Name: ANA JIMENEZ Rep #:[id number] : 1945 79 From: Crow Dc MD PCP: Dr. Jolanta Grant MD Status:ADM IN Location: ICU [place] [address] 3-1 Operative Report (Standard) Operative Information Date of Procedure: 11/17/24 Pre-Operative Diagnosis: atherosclerosis poarch arteries with rest pain, left lower extremity Post-Operative Diagnosis: same Surgery/Procedure Performed: Right common and external iliac artery intravascular lithotripsy angioplasty and stent Right femoral endarterectomy Right to left femoral-femoral bypass with cadaver Bilateral sartorius flaps practicing urologist: Yes Presentation Designer: Alina Pena Tasks completed by certified first assistant: Opening, Closing, Opening & closing, Hemostasis: [...] device Implanted device details: Right common iliac stent-[employer] epic stent 10x 4; right external iliac stent-[employer] Innova 8 x 100 Estimated Blood Loss: 157 Specimen collected: Yes Description of specimen(s) removed: Right femoral plaque Description of surgery: HPI: Patient is a 79-year-old female with atherosclerosis of the poarch vessels with left lower extremity rest pain [...] exchanged for micropuncture sheath. Through this a Bentson wire was advanced traversing the external and common iliac arteries and ultimately advancing into the aorta. The micropuncturesheath was exchanged for 7 [place] Brite tip sheath which is advanced in [...] angioplasty balloon 8 mm x 6 was then advanced over the wire and positioned within the [...] then deflated withdrawn and repeat angiography revealed satisfactory response with no significant residual stenosis, no extravasation no dissection. Next a [employer] Epic self-expanding stent 8 x 100 was advanced into the external iliac artery and deployed. This was followed by a [employer] Innova 10 x 40 self-expanding stent [...] and then deflated withdrawn. Completion angiography revealed satisfactory resolution of the areas of stenosis with significant caliber gain and no extravasation or diss ection. Wires and sheath were then withdrawn and the femoral vessels reoccluded with Vesseloops. The puncture site in the patch was then extended with Gauthier scissors a satisfactory length to perform our bypass anastomosis. The cadaver femoral-popliteal artery had been thawed per data entry operator's instructions and was then beveled to match [...] then secured in position with a 2-0 Vicryl. The incision was then closed with 3-0 Vicryl followed by 4 Monocryl andPrineo for the skin. Adaptic was then placed over the Prineo and Prevena closedincisional wound vacs were applied. The patient was then taken to the recovery room with anticipate admission to the intensive care unit for he modynamic and vascular monitoring. Surgical Findings: See above Complications Complications: No 11/17/24 1440 Cosigner Signature (if applicable): CC: Dr. Crow Dc MD; Dr. Jolanta Grant MD~ Signed [facility]05-27-2025 Consult note [facility] Medical Records Department [address] [place] [address] Anesthesia Postop Eval II 11/17/24 1406 MR#: [id number] Acct: [id number] Name: ANA JIMENEZ Rep #:[id number] : 1945 79 From: Haven gustafson TRAFFIC CONTROL TECHNICIAN PCP: Dr. Jolanta Grant MD Status:ADM IN Y Race: C Location: ICU CVICU 203-1 Anesthesia Postop Eval I Sum Postop Eval Completion status Anesthesia document: Postop Eval 1 completed: Yes Anesthesia Postop Eval I Summary Anesthesia Postop Eval I Summary: Anesthesia Postop Eval I: Assessment Summary Airway patent Yes 11/17/24 14:01 TRAFFIC CONTROL [email or web address] Spontaneous unlabored Yes 11/17/24 14:01 TRAFFIC CONTROL [email or web address] respirations Mental status Awake,Calm, 11/17/24 14:01 TRAFFIC CONTROL [email or web address] Confused nausea No 11/17/24 14:01 TRAFFIC CONTROL [email or web address] Vomiting No 11/17/24 14:01 TRAFFIC CONTROL [email or web address] Anesthesia Postop Eval I: Fluid Summary Crystalloid volume administer 2,500 11/17/24 14:01 TRAFFIC CONTROL [email or web address] (ml) Colloids volume administered ( ml) Blood Product volume administered (ml) Total IV fluid infused 2,500 11/17/24 14:01 TRAFFIC CONTROL [email or web address] Anesthesia Postop Eval I: Summary Notes Anesthesia Complication No 11/17/24 14:01 TRAFFIC CONTROL [email or web address] Anesthesia Complication Comment: Post-operative progress note Anesthesia: Postop Eval II Evaluation Mental status: Awake and Calm Pain Level: 0 nausea: No Vomiting: No Complications Anesthesia Complication: No 11/17/24 1407 raina TRAFFIC CONTROL TECHNICIAN> Date _ Haven Mcneil TRAFFIC CONTROL TECHNICIAN Cosigner Signature: Date CC: ~ Signed [facility]05-27-2025 Consult note [facility] Medical Records Department [address] [place] [address] Anesthesia Postop Eval I 11/17/24 1400 MR#: [id number] Acct: [id number] Name: ANA JIMENEZ Rep #:[id number] : 1945 79 From: Lul Hood CRNA PCP: Dr. Jolanta Grant MD Status:ADM IN Y Race: C Location: ICU CVICU 203- Anesthesia: Postop Eval I Current Vital Signs [...] Eval 1 completed: Yes 11/17/24 1401 y TRAFFIC CONTROL TECHNICIAN> Date _ Lul Hood TRAFFIC CONTROL TECHNICIAN Cosigner Signature: Date CC: ~ Signed [facility]05-27-2025 History and physical note Author Crow Dc [facility] Note Date/Time November 17, 2024 7:29a m [facility] Medical Records Department [address] [place] [address] History & Physical Exam 11/17/24728 MR#: [id number] Acct: [id number] Name: ANA JIMENEZ Rep #:[id number] : 1945 79 From: Crow Dc MD PCP: Dr. 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 Crow Dc MD; Dr. Jolanta Grant MD~ Signed [facility] Work Phone: 1(325) 521-654205-27-2025 Consult note Author Tobin Roth [facility] Note Date/Time November 17, 2024 7:02a m [facility] Medical Records Department [address] [place] [address] Pre-Anesthesia Evaluation 11/17/24 0652 MR#: [id number] Acct: [id number] Name: ANA JIMENEZ Rep #:[id number] : 1945 79 From: Tobin Roth MD PCP: Dr. 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: Anesthesia History - assistant golf course superintendent Hx Hospitalization No 11/02/24 14:00 Any Problems [...] take am of surgery PONV PONV - assistant golf course superintendent: PONV - assistant golf course superintendent Female Yes 11/02/24 14:00 HX of Motion [...] 11/17/24 06:22 Respiratory Assessment Respiratory Assessment - assistant golf course superintendent: Respiratory Tract Infection Hx - assistant golf course superintendent Hx Respiratory Tract Infection No 11/02/24 14:00 STOP Sleep Apnea STOP Sleep Apnea - assistant golf course superintendent: STOP Sleep Apnea - assistant golf course superintendent Hx Hypertension Yes 11/02/24 14:00 Hx Sleep [...] Tobacco Use History Tobacco Use History - assistant golf course superintendent: Tobacco Use History - assistant golf course superintendent Tobacco Use Cigarettes 12/13/20 14:23 Smoking Status [...] today.) Hematologic Medial History Hematologic Hx - assistant golf course superintendent: Hematologic Medical Hx - sole layer Hx of Blood Transfusion Yes 11/02/24 14:00 [...] confused, unrespo /Reproduction History /Reproductive History - assistant golf course superintendent: /Reproductive Hx- assistant golf course superintendent Hx Now No 11/02/24 14:00 Gestational Age [...] 1 - 2 tab PO .as directed TX N 11/02/24 Unknown History mg-simethicone 20 mg chewable reflux tablet furosemide 40 mg tablet 40 mg PO DAILY dieretic 10/2211/16/24 History magnesium sulfate 1 ea 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 11/17/24 0702 <Electronically signed by Tobin ott MD> Date _ Tobin Roth MD Cosigner Signature: Date CC: ~ Signed [facility] Work Phone: 1(165) 742-651805-27-2025 History and physical note [facility] Medical Records Department [address] [place] [address] History & Physical Exam 11/17/24728 MR#: [id number] Acct: [id number] Name: BARBARAANA M Rep #:[id number] : 1945 79 From: Crow Dc MD PCP: Dr. 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 Crow Dc MD; Dr. Jolanta Grant MD~ Signed [facility]27[facility] Consult note [facility] Medical Records Department [address] [place] [address] Pre-Anesthesia Evaluation 11/17/24 0652 MR#: [id number] Acct: [id number] Name: ANA JIMENEZ Rep #:[id number] : 1945 79 From: Tobin Roth MD PCP: Dr. 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: Anesthesia History - assistant golf course superintendent Hx Hospitalization No 11/02/24 14:00 Any Problems [...] take am of surgery PONV PONV - assistant golf course superintendent: PONV - assistant golf course superintendent Female Yes 11/02/24 14:00 HX of Motion [...] 11/17/24 06:22 Respiratory Assessment Respiratory Assessment - assistant golf course superintendent: Respiratory Tract Infection Hx - assistant golf course superintendent Hx Respiratory Tract Infection No 11/02/24 14:00 STOP Sleep Apnea STOP Sleep Apnea - assistant golf course superintendent: STOP Sleep Apnea - assistant golf course superintendent Hx Hypertension Yes 11/02/24 14:00 Hx Sleep [...] Tobacco Use History Tobacco Use History - assistant golf course superintendent: Tobacco Use History - assistant golf course superintendent Tobacco Use Cigarettes 12/13/20 14:23 Smoking Status [...] today.) Hematologic Medial History Hematologic Hx - assistant golf course superintendent: Hematologic Medical Hx - sole layer Hx of Blood Transfusion Yes 11/02/24 14:00 [...] confused, unrespo /Reproduction History /Reproductive History - assistant golf course superintendent: /Reproductive Hx- assistant golf course superintendent Hx Now No 11/02/24 14:00 Gestational Age [...] 1 - 2 tab PO .as directed TX N 11/02/24 Unknown History mg-simethicone 20 mg chewable reflux tablet furosemide 40 mg tablet 40 mg PO DAILY dieretic 10/2211/16/24 History magnesium sulfate 1 ea topical 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 11/17/24701 tru CORDOBA> Date _ Tobin Concepcion Signature: Date CC: ~ Signed [facility]05-23-2025 NoteHNO ID: [id number] Author: LAURA GREEN RN Service: ? Author Type: Registered Nurse Type: Progress Notes Filed: 11/13/2024 15:11 Note Text: [facility] Chart Review Provider Action/FYI Patient identified by name and date of :YES [facility] Was patient contacted?: No: Patient is not established with [facility] Provider., No outreach is necessary Patient discharged from [facility] on 11/12/24 ED Provider Discharge summary: Outreach Plan:Follow up call needed:No [facility] Green [facility] NotePatient Outreach (MRCAC) ANA JIMENEZ ([id number]) 1945 F Date Time Provider Department 11/13/24 LAURA GREEN MRCANASTASIIA During your visit today, we recorded the following information about you: Laura Green RN 11/13/2024 3:11 PM Signed [facility] Chart Review Provider Action/FYI Patient identified by name and date of :YES Patient identified for Care Coordination from: [email or web address] [facility]-Emergency Department Discharge Report Was patient contacted?: No: Patient is not established with 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 [3613] Prescriptions as of 11/13/2024 - fluticasone (FLOVENT) [...] (None) Encounter Status:Closed by LAURA GREEN on 11/13/24[facility] 11[facility]24 Telephone encounter Note* Telephone Encounter - Carmina Shetty LPN - 11/04/2024 4:32 PM EDT Patient is overdue for wellness exam Please call and schedule Carmina Shetty LPN November 04, 2024 4:33 PM [facility]05-14-2025 Miscellaneous Notes* Telephone Encounter - Carmina Shetty LPN - 11/04/2024 4:32 PM EDT Patient is overdue for wellness exam Please call and schedule Carmina Shetty LPN November 04, 2024 4:33 PM documented [facility] Evaluation note* Diagnosis Onset Date Resolution Status Admit Date Atherosclerosis of poarch ar teries of extremities with intermittent chronic October 22, 2024 1:31pm [facility] Work Phone: 1(366) 858-708205-01-2025 Evaluation note* Diagnosis Onset Date Resolution Status Admit Date Atherosclerosis of poarch arteries of extremities with intermittent chronic October 22, 2024 1: 31pm Atherosclerosis of poarch arteries of extremities with intermittent chronic November 17, 2024 1 :22pm [facility] Work Phone: 1(908) 713-623005-01-2025 Evaluation note* Diagnosis Onset Date Resolution Status Admit Date Atherosclerosis of poarch arteries of extremities with intermittent chronic October 22, 2024 1: 31pm Atherosclerosis of poarch arteries of extremities with intermittent chronic November 17, 2024 1 :22pm Coronary artery disease acute M 2024 5:30pm Debility acute November 20, 2024 5:30pm Hypokalemia acute November 20 5:30pm PAD (peripheral artery disease) acut e November 20, 2024 5:30pm Tobacco abuse acute November 20, 2 025 5:30pm Atherosclerosis of poarch arteries of extremities with intermittent chronic November 20, 2024 5 :30pm Chronic HFrEF (heart failure with reduced ejection fraction) chronic October 242024 5:30pm Hyperlipemia chronic November 20 5:30pm [facility] Work Phone: 1(905) 136-611105-01-2025 Evaluation note* Diagnosis Onset Date Resolution Status Admit Date Atherosclerosis of poarch arteries of extremities with intermittent chronic October 22, 2024 1: 31pm Atherosclerosis of poarch arteries of extremities with intermittent chronic November 17, 2024 1 :22pm Coronary artery disease acute M ay 2024 5:30pm Debility acute November 20, 2024 5:30pm Hypokalemia acute November 20 5:30pm PAD (peripheral artery disease) acut e November 20, 2024 5:30pm Tobacco abuse acute November 20, 2 025 5:30pm Atherosclerosis of poarch arteries of extremities with intermittent chronic November 20, 2024 5 :30pm Chronic HFrEF (heart failure with reduced ejection fraction) chronic October 242024 5:30pm Hyperlipemia chronic November 20 5:30pm PAD (peripheral artery disease) acut e December 01, 2024 3:05pm [facility] Work Phone: 1(244) 426-469705-01-2025 Evaluation note* Diagnosis Onset Date Resolution Status Admit Date Atherosclerosis of poarch arteries of extremities with intermittent chronic October 22, 2024 1:31pm Atherosclerosis of poarch arteries of extremities with intermittent chronic November 17, 2024 1:22pm Coronary artery disease acute M ay 2024 5:30pm Debility acute November 20, 2024 5:30pm Hypokalemia acute November 20 5:30pm PAD (peripheral artery disease) acute November 20, 2024 5:30pm Tobacco abuse acute November 20, 2 025 5:30pm Atherosclerosis of poarch arteries of extremities with intermittent chronic November 20, 2024 5:30pm Chronic HFrEF (heart failure with reduced ejection fraction) chronic November 20, 2024 5:30pm Hyperlipemia chronic November 20 5:30pm PAD (peripheral artery disease) acute December 01, 2024 3:05pm PAD (peripheral artery disease) acute December 30, 2024 3:43pm Biventricular ICD (implantable cardioverter-defibrillator) in place August 04, 2020 chronic December 31, 025 8:56am Claudication chronic December 31, 025 8:56am Essential (primary) hypertension chronic December 31, 2024 8:56am Hyperlipemia chronic December 31, 025 8:56am Ischemic cardiomyopathy chronic J 2024 8:56am H/O coronary artery bypass surgery April 28, 1997 resolved December 31 8:56am [facility] Work Phone: 1(696) 955-525605-01-2025 Evaluation note* Diagnosis Onset Date Resolution Status Admit Date Atherosclerosis of poarch arteries of extremities with intermittent chronic October 22, 2024 1:31pm Atherosclerosis of poarch arteries of extremities with intermittent chronic November 17, 2024 1:22pm Coronary artery disease acute M 2024 5:30pm Debility acute November 20, 2024 5:30pm Hypokalemia acute November 20 5:30pm PAD (peripheral artery disease) acute November 20, 2024 5:30pm Tobacco abuse acute November 20, 025 5:30pm Atherosclerosis of poarch arteries of extremities with intermittent chronic November 20, 2024 5:30pm Chronic HFrEF (heart failure with reduced ejection fraction) chronic November 20, 2024 5:30pm Hyperlipemia chronic November 20 5:30pm PAD (peripheral artery disease) acute December 01, 2024 3:05pm PAD (peripheral artery disease) acute December 30, 2024 3:43pm Biventricular ICD (implantable cardioverter-defibrillator) in place August 04, 2020 chronic December 31 025 8:55am Chronic systolic congestive heart failure chronic December 31, 2024 8:55am Ischemic cardiomyopathy chronic 2024 8:55am Biventricular ICD (implantable cardioverter-defibrillator) in place August 04, 2020 chronic December 31, 025 8:56am Claudication chronic December 31 8:56am Essential (primary) hypertension chronic December 31, 2024 8:56am Hyperlipemia chronic December 31 8:56am Ischemic cardiomyopathy chronic 2024 8:56am H/O coronary artery bypass surgery April 28, 1997 resolved December 31 8:56am [facility] Work Phone: 1(825) 290-120904-29-2025 NoteHNO ID: [id number] Author: BRE PORTILLO MA Service: ? Author Type: Learning And Development Consultant Type: Progress Notes Filed: 10/20/2024 15:01 Note [...] Bre Portillo MA October 20, 2024 2:[address] [facility]04-29-2025 History of Present illness Narrative* Bre Portillo [...] you! ED DIAGNOSES/REASON(S) FOR ED USE: 10/18/2024 [facility] for leg pain OTHER FINDINGS/SUMMARY: CTA abdomen w/runoff, labs Patient Attributed To: DERRICKE Payer: Nereyda NUNEZ Action Taken: Referrals/Routed: Population Health Navigation: Appointment. Router to [facility] [[id number]] Contact made with patient: No, Chart review only. Signature: Isra Rizvi RN documented in this encounterSelect [facility]04-29-2025 NoteHNO ID: [id number] Author: ISRA RIZVI RN Service: ? Author Type: Registered Nurse Type: Progress Notes Filed: 10/20/2024 14:06 Note Text: Summary: Chart review per payor request. AC JOVITA RN Patient identified by name and date of . Reason for review or outreach: Chart Review [facility] Utilization REQUESTED ACTION/FYI: A follow-up appointment is not yet scheduled. We are forwarding this patient to Network [facility] to schedule a 10/18/2024 [facility] PCP follow-up appointment and to verify patient's insurance information. Thank you! ED DIAGNOSES/REASON(S) FOR ED USE: 10/18/2024 [facility] for leg pain OTHER FINDINGS/SUMMARY: CTA abdomen w/runoff, labs Patient Attributed To: DERRICKE Payer: Nereyda NUNEZ Action Taken: Referrals/Routed: Population Health Navigation: Appointment. Router to [facility] [[id number]] Contact made with patient: No, Chart review only. Signature: Isra Rizvi RNWilson [facility] Hospital04-29-2025 NotePatient Outreach (AMBCMG) ANA JIMENEZ ([id number]) 1945 F Date Time Provider Department 10/20/24 ISRA RIZVI During your visit today, we recorded the following information about you: Isra Rizvi RN 10/20/2024 2:06 PM Signed ACM JOVITA RN Patient identified by name and date of . Reason for review or outreach: Chart Review [facility] Utilization REQUESTED ACTION/FYI: A follow-up appointment is not yet scheduled. We are forwarding this patient to [employer] to schedule a 10/18/2024 [facility] PCP follow-up appointment and to verify patient's insurance information. Thank you! ED DIAGNOSES/REASON(S) FOR ED USE: 10/18/2024 [facility] for leg pain OTHER FINDINGS/SUMMARY: CTA abdomen w/runoff, labs Patient Attributed To: DERRICKE Payer: Nereyda NUNEZ Action Taken: Referrals/Routed: Population Health Navigation: Appointment. Router to [facility] [employer] PSS POOL [[id number]] Contact made with patient: No, Chart review only. Signature: RAJINDER Mena Jennifer L, MA 10/20/2024 3:01 PM Signed POPULATION HEALTH NAVIGATION OUTREACH Action/FYI Community [facility] Navigation Pool/ACM Discuss/Due for: ED Follow Up Left leg pain We are forwarding this patient to [employer] to schedule a 10/18/2024 [facility] PCP follow-up appointment and to verify [...] Assessed Reason for Visit: ACM JOVITA RN [[id number]] Cmt: Chart review per payor request. Prescriptions [...] (None) Encounter Status:Closed by ISRA RIZVI on 10/20/24[facility] 10-15-2023 Telephone encounter Note* Telephone Encounter - Karin Sheriff - 10/15/2023 3:38 PM EDT Ted, Wrote letter will mail tomorrowKarin Jaziel October 15, 2023 3:38 PM [facility]04-23-2024 Miscellaneous Notes* Telephone Encounter - Karin Sheriff - 10/15/2023 3:38 PM EDT Ted, Wrote letter will mail tomorrowKarin Jaziel October 15, 2023 3:38 PM * Telephone [...] Depression Assessment Thank you, Halle Peguero MA Population Health Navigator-[facility] July 08, 2023 10:00 AM documented in this encounterSelect [facility]-2024 Telephone encounter Note * Telephone Encounter - Halle Peguero MA - 10/15/2023 3:05 PM EDT Please send contact letter. 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 Sinus node dysfunction chron ic Claudication acute Decreased radial pulse acute 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 August 04, 2020 chr onic Essential (primary) hypertension chronic Hyperlipemia chronic 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 H/O coronary artery bypass surgery April 28, 1997 resolved Atrioventricular node dysfunction chronic 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 August 04, 2020 chr onic Chronic systolic congestive heart failure chronic 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 Sinus node dysfunction chron ic [facility] Work Phone: 1(299) 680-797302-11-2021 Evaluation note* Diagnosis Onset Date Resolution Status Claudication acute Decreased radial pulse acute 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 August 04, 2020 chr onic Essential (primary) hypertension chronic Hyperlipemia chronic 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 H/O coronary artery bypass surgery April 28, 1997 resolved Atrioventricular node dysfunction chronic 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 August 04, 2020 chr onic Chronic systolic congestive heart failure chronic 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 Sinus node dysfunction chron ic [facility] Work Phone: 1(117) 356-998702-11-2021 Evaluation note* Diagnosis Onset Date Resolution Status Atrioventricular node dysfunction chronic 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 August 04, 2020 chr onic Chronic systolic congestive heart failure chronic 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 Sinus node dysfunction chron ic 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 August 04, 2020 chr onic Claudication chronic Essential (primary) hypertension chronic Hyperlipemia chronic 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 H/O coronary artery bypass surgery April 28, 1997 resolved [facility] Work Phone: Evaluation noteNo assessment information available [facility] Work Phone: Reason for referral (narrative)No reason for referral information availableWPremier Health [facility] Work Phone: Chief Complaint and Reason for Visit Chief Complaint 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) INT LAB Reason for Visit Atrioventricular nod [...] Reason for Visit Admit Date Atherosclerosis of poarch ar teries of extremities with intermittent October [...] Reason for Visit Admit Date Atherosclerosis of poarch ar teries of extremities with intermittent October 22, 2024 1:31pm Atherosclerosis of poarch ar teries of extremities with intermittent November 17, 2024 1:22pm Chief Complaint Admit Date lower extremeity October [...] BYP ASS,RT NAJMA November 18, 2024 8:23am ATHEROSCLEROSIS W/ REST PAIN, LEFT LOWER EXTREMITY November 19, 2024 6:39am ATHEROSCLEROSIS W/ REST PAIN, LEFT LOWER EXTREMITY November 20, 2024 3:39pm BILATERAL FEMORAL ENDARTERECTOMY October 5:30pm BILATERAL FEMORAL ENDARTERECTOMY November 1:44pm 2 weeks post op December 01, 2024 3:05 pm Reason for Visit Admit Date Atherosclerosis of poarch ar teries of extremities with intermittent October 22, 2024 1:31pm Atherosclerosis of poarch ar teries of extremities with intermittent November 17, 2024 1:22pm Coronary artery disease November 20, 2024 5 :30pm Debility November 20, 2024 5:30p m Hypokalemia November 20, 2024 5:30p m PAD (peripheral artery disease) October 5:30pm Tobacco abuse November 20, 2024 5:30p m Atherosclerosis of poarch ar teries of extremities with intermittent November 20, 2024 5:30pm Chronic HFrEF (heart failure with reduce d ejection fraction) November 20, 2024 5:30pm Hyperlipemia November 20, 2024 5:30p m Reason for Visit Admit Date Atherosclerosis of poarch ar teries of extremities with intermittent October 22, 2024 1:31pm Atherosclerosis of poarch ar teries of extremities with intermittent November 17, 2024 1:22pm Coronary artery disease November 20, 2024 5 :30pm Debility November 20, 2024 5:30p m Hypokalemia November 20, 2024 5:30p m PAD (peripheral artery disease) October 5:30pm Tobacco abuse November 20, 2024 5:30p m Atherosclerosis of poarch ar teries of extremities with intermittent November 20, 2024 5:30pm Chronic HFrEF (heart failure with reduce d ejection fraction) November 20, 2024 5:30pm Hyperlipemia November 20, 2024 5:30p m PAD (peripheral artery disease) November 3:05pm Chief Complaint Admit Date lower extremeity October [...] BYP ASS,RT NAJMA November 18, 2024 8:23am ATHEROSCLEROSIS W/ REST PAIN, LEFT LOWER EXTREMITY November 19, 2024 6:39am ATHEROSCLEROSIS W/ REST PAIN, LEFT LOWER EXTREMITY November 20, 2024 3:39pm BILATERAL FEMORAL ENDARTERECTOMY October 5:30pm BILATERAL FEMORAL ENDARTERECTOMY November 1:44pm 2 weeks post op December 01, 2024 3:05 pm BL FEMORAL ENDARTERECTOMY. RX HERE December 07, 2024 11:59am Encounter for surgical aftercare followi ng surgery December 11, 2024 9:02am Chief Complaint Admit Date lower extremeity October [...] BYP ASS,RT NAJMA November 18, 2024 8:23am ATHEROSCLEROSIS W/ REST PAIN, LEFT LOWER EXTREMITY November 19, 2024 6:39am ATHEROSCLEROSIS W/ REST PAIN, LEFT LOWER EXTREMITY November 20, 2024 3:39pm BILATERAL FEMORAL ENDARTERECTOMY October 5:30pm BILATERAL FEMORAL ENDARTERECTOMY November 1:44pm 2 weeks post op December 01, 2024 3:05 pm Encounter for surgical aftercare followi ng surgery December 11, 2024 9:02am BL FEMORAL ENDARTERECTOMY. RX HERE December 16, 2024 3:00pm Chief Complaint Admit Date lower extremeity October [...] BYP ASS,RT NAJMA November 18, 2024 8:23am ATHEROSCLEROSIS W/ REST PAIN, LEFT LOWER EXTREMITY November 19, 2024 6:39am ATHEROSCLEROSIS W/ REST PAIN, LEFT LOWER EXTREMITY November 20, 2024 3:39pm BILATERAL FEMORAL ENDARTERECTOMY October 5:30pm BILATERAL FEMORAL ENDARTERECTOMY November 1:44pm 2 weeks post op December 01, 2024 3:05 pm Encounter for surgical aftercare followi ng surgery December 11, 2024 9:02am BL FEMORAL ENDARTERECTOMY. RX HERE December 18, 2024 3:00pm Chief Complaint Admit Date lower extremeity October [...] BYP ASS,RT NAJMA November 18, 2024 8:23am ATHEROSCLEROSIS W/ REST PAIN, LEFT LOWER EXTREMITY November 19, 2024 6:39am ATHEROSCLEROSIS W/ REST PAIN, LEFT LOWER EXTREMITY November 20, 2024 3:39pm BILATERAL FEMORAL ENDARTERECTOMY October 5:30pm BILATERAL FEMORAL ENDARTERECTOMY November 1:44pm 2 weeks post op December 01, 2024 3:05 pm Encounter for surgical aftercare followi ng surgery December 11, 2024 9:02am BL FEMORAL ENDARTERECTOMY. RX HERE December 29, 2024 3:30pm 1 M FU December 30, 2024 3:43p m Chief Complaint Admit Date lower extremeity October [...] BYP ASS,RT NAJMA November 18, 2024 8:23am ATHEROSCLEROSIS W/ REST PAIN, LEFT LOWER EXTREMITY November 19, 2024 6:39am ATHEROSCLEROSIS W/ REST PAIN, LEFT LOWER EXTREMITY November 20, 2024 3:39pm BILATERAL FEMORAL ENDARTERECTOMY October 5:30pm BILATERAL FEMORAL ENDARTERECTOMY November 1:44pm 2 weeks post op December 01, 2024 3:05 pm Encounter for surgical aftercare followi ng surgery December 11, 2024 9:02am BL FEMORAL ENDARTERECTOMY. RX HERE December 29, 2024 3:30pm 1 M FU December 30, 2024 3:43p m 6 M PACER CHECK(KR9:30) December 31, 2024 8:55am 6 M FU (JADA 9AM) December 31, 2024 8:56 am Reason for Visit Admit Date Atherosclerosis of poarch ar teries of extremities with intermittent October 22, 2024 1:31pm Atherosclerosis of poarch ar teries of extremities with intermittent November 17, 2024 1:22pm Coronary artery disease November 20, 2024 5 :30pm Debility November 20, 2024 5:30p m Hypokalemia November 20, 2024 5:30p m PAD (peripheral artery disease) October 5:30pm Tobacco abuse November 20, 2024 5:30p m Atherosclerosis of poarch ar teries of extremities with intermittent November 20, 2024 5:30pm Chronic HFrEF (heart failure with reduce d ejection fraction) November 20, 2024 5:30pm Hyperlipemia November 20, 2024 5:30p m PAD (peripheral artery disease) November 3:05pm PAD (peripheral artery disease) December 3:43pm 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 December 31, 2024 8:56am Claudication December 31, 2024 8:56 am Essential (primary) hypertension December 312024 8:56am Hyperlipemia December 31, 2024 8:56 am Ischemic cardiomyopathy December 31, 2024 8:56am H/O coronary artery bypass surgery December 31, 2024 8:56am Reason for Visit Admit Date Atherosclerosis of poarch ar teries of extremities with intermittent October 22, 2024 1:31pm Atherosclerosis of poarch ar teries of extremities with intermittent November 17, 2024 1:22pm Coronary artery disease November 20, 2024 5 :30pm Debility November 20, 2024 5:30p m Hypokalemia November 20, 2024 5:30p m PAD (peripheral artery disease) October 5:30pm Tobacco abuse November 20, 2024 5:30p m Atherosclerosis of poarch ar teries of extremities with intermittent November 20, 2024 5:30pm Chronic HFrEF (heart failure with reduce d ejection fraction) November 20, 2024 5:30pm Hyperlipemia November 20, 2024 5:30p m PAD (peripheral artery disease) November 3:05pm PAD (peripheral artery disease) December 3:43pm 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 December 31, 2024 8:55am Chronic systolic congestive heart failur e December 31, 2024 8:55am Ischemic cardiomyopathy December 31, 2024 8:55am 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 December 31, 2024 8:56am Claudication December 31, 2024 8:56 am Essential (primary) hypertension December 312024 8:56am Hyperlipemia December 31, 2024 8:56 am Ischemic cardiomyopathy December 31, 2024 8:56am H/O coronary artery bypass surgery December 31, 2024 8:56am Chief Complaint Admit Date lower extremeity October [...] BYP ASS,RT NAJMA November 18, 2024 8:23am ATHEROSCLEROSIS W/ REST PAIN, LEFT LOWER EXTREMITY November 19, 2024 6:39am ATHEROSCLEROSIS W/ REST PAIN, LEFT LOWER EXTREMITY November 20, 2024 3:39pm BILATERAL FEMORAL ENDARTERECTOMY October 5:30pm BILATERAL FEMORAL ENDARTERECTOMY November 1:44pm 2 weeks post op December 01, 2024 3:05 pm Encounter for surgical aftercare followi ng surgery December 11, 2024 9:02am 1 M FU December 30, 2024 3:43p m 6 M PACER CHECK(KR9:30) December 31, 2024 8:55am 6 M FU (JADA 9AM) December 31, 2024 8:56 am Pacer Check Remote December 31, 2024 9:00 am BL FEMORAL ENDARTERECTOMY. RX HERE January 05, 2025 3:30pm Chief Complaint Admit Date lower extremeity October [...] BYP ASS,RT NAJMA November 18, 2024 8:23am ATHEROSCLEROSIS W/ REST PAIN, LEFT LOWER EXTREMITY November 19, 2024 6:39am ATHEROSCLEROSIS W/ REST PAIN, LEFT LOWER EXTREMITY November 20, 2024 3:39pm BILATERAL FEMORAL ENDARTERECTOMY October 5:30pm BILATERAL FEMORAL ENDARTERECTOMY November 1:44pm 2 weeks post op December 01, 2024 3:05 pm Encounter for surgical aftercare followi ng surgery December 11, 2024 9:02am 1 M FU December 30, 2024 3:43p m 6 M PACER CHECK(KR9:30) December 31, 2024 8:55am 6 M FU (JADA 9AM) December 31, 2024 8:56 am Pacer Check Remote December 31, 2024 9:00 am BL FEMORAL ENDARTERECTOMY. RX HERE January 05, 2025 3:30pm BP CHECK PER KRR January 07, 2025 1:13 pm Chief Complaint Admit Date lower extremeity October [...] BYP ASS,RT NAJMA November 18, 2024 8:23am ATHEROSCLEROSIS W/ REST PAIN, LEFT LOWER EXTREMITY November 19, 2024 6:39am ATHEROSCLEROSIS W/ REST PAIN, LEFT LOWER EXTREMITY November 20, 2024 3:39pm BILATERAL FEMORAL ENDARTERECTOMY October 5:30pm BILATERAL FEMORAL ENDARTERECTOMY November 1:44pm 2 weeks post op December 01, 2024 3:05 pm Encounter for surgical aftercare followi ng surgery December 11, 2024 9:02am 1 M FU December 30, 2024 3:43p m 6 M PACER CHECK(KR9:30) December 31, 2024 8:55am 6 M FU (JADA 9AM) December 31, 2024 8:56 am Pacer Check Remote December 31, 2024 9:00 am BP CHECK PER KRR January 07, 2025 1:13 pm BL FEMORAL ENDARTERECTOMY. RX HERE January 07, 2025 2:30pm Chief Complaint Admit Date lower extremeity October [...] BYP ASS,RT NAJMA November 18, 2024 8:23am ATHEROSCLEROSIS W/ REST PAIN, LEFT LOWER EXTREMITY November 19, 2024 6:39am ATHEROSCLEROSIS W/ REST PAIN, LEFT LOWER EXTREMITY November 20, 2024 3:39pm BILATERAL FEMORAL ENDARTERECTOMY October 5:30pm BILATERAL FEMORAL ENDARTERECTOMY November 1:44pm 2 weeks post op December 01, 2024 3:05 pm Encounter for surgical aftercare followi ng surgery December 11, 2024 9:02am 1 M FU December 30, 2024 3:43p m 6 M PACER CHECK(KR9:30) December 31, 2024 8:55am 6 M FU (JADA 9AM) December 31, 2024 8:56 am Pacer Check Remote December 31, 2024 9:00 am BP CHECK PER KRR January 07, 2025 1:13 pm BL FEMORAL ENDARTERECTOMY. RX HERE January 07, 2025 2:30pm Presence of other vascular implants and grafts January 21, 2025 2:53pm Chief Complaint Admit Date lower extremeity October [...] BYP ASS,RT NAJMA November 18, 2024 8:23am ATHEROSCLEROSIS W/ REST PAIN, LEFT LOWER EXTREMITY November 19, 2024 6:39am ATHEROSCLEROSIS W/ REST PAIN, LEFT LOWER EXTREMITY November 20, 2024 3:39pm BILATERAL FEMORAL ENDARTERECTOMY October 5:30pm BILATERAL FEMORAL ENDARTERECTOMY November 1:44pm 2 weeks post op December 01, 2024 3:05 pm Encounter for surgical aftercare followi ng surgery December 11, 2024 9:02am 1 M FU December 30, 2024 3:43p m 6 M PACER CHECK(KR9:30) December 31, 2024 8:55am 6 M FU (JADA 9AM) December 31, 2024 8:56 am Pacer Check Remote December 31, 2024 9:00 am BP CHECK PER KRR January 07, 2025 1:13 pm BL FEMORAL ENDARTERECTOMY. RX HERE January 07, 2025 2:30pm Presence of other vascular implants and grafts January 21, 2025 2:53pm SKIN February 09, 2025 11 :05am Chief Complaint Admit Date LT LEG PAIN November 04, 2024 8:21a m PREOP November 04, 2024 8:37a m left leg pain November 12, 2024 3:11p m BILAT FEMORAL ENDARTERECTOMY,FEM-FEM BYP ASS,RT NAJMA November 17, 2024 7:29am ATHEROSCLEROSIS W/ REST PAIN, LEFT LOWER EXTREMITY November 17, 2024 1:22pm BILAT FEMORAL ENDARTERECTOMY,FEM-FEM BYP ASS,RT NAJMA November 18, 2024 8:23am ATHEROSCLEROSIS W/ REST PAIN, LEFT LOWER EXTREMITY November 19, 2024 6:39am ATHEROSCLEROSIS W/ REST PAIN, LEFT LOWER EXTREMITY November 20, 2024 3:39pm BILATERAL FEMORAL ENDARTERECTOMY October 5:30pm BILATERAL FEMORAL ENDARTERECTOMY November 1:44pm 2 weeks post op December 01, 2024 3:05 pm Encounter for surgical aftercare followi ng surgery December 11, 2024 9:02am 1 M FU December 30, 2024 3:43p m 6 M PACER CHECK(KR9:30) December 31, 2024 8:55am 6 M FU (JADA 9AM) December 31, 2024 8:56 am Pacer Check Remote December 31, 2024 9:00 am BP CHECK PER KRR January 07, 2025 1:13 pm BL FEMORAL ENDARTERECTOMY. RX HERE January 07, 2025 2:30pm Presence of other vascular implants and grafts January 21, 2025 2:53pm SKIN February 09, 2025 11 :05am 2 M FU March 02, 2025 12:55pm Reason for Visit Admit Date Atherosclerosis of [place] of extremities with intermittent November 17, 2024 1:22pm Coronary artery disease November 20, 2024 5 :30pm Debility November 20, 2024 5:30p m Hypokalemia November 20, 2024 5:30p m PAD (peripheral artery disease) October 5:30pm Tobacco abuse November 20, 2024 5:30p m Atherosclerosis of [place] of extremities with intermittent November 20, 2024 5:30pm Chronic HFrEF (heart failure with reduced ejection fraction) November 20, 2024 5:30pm Hyperlipemia November 20, 2024 5:30p m PAD (peripheral artery disease) November 3:05pm PAD (peripheral artery disease) December 3:43pm 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 December 31, 2024 8:55am Chronic systolic congestive heart failur e December 31, 2024 8:55am Ischemic cardiomyopathy December 31, 2024 8:55am 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 December 31, 2024 8:56am Claudication December 31, 2024 8:56 am Essential (primary) hypertension December [id number] 8:56am Hyperlipemia December 31, 2024 8:56 am Ischemic cardiomyopathy December 31, 2024 8:56am H/O coronary artery bypass surgery December 31, 2024 8:56am 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 March 02, 2025 12:55pm Claudication March 02, 2025 12:55pm Essential (primary) [facility] 12:55pm Hyperlipemia March 02, 2025 12:55pm Ischemic cardiomyopathy March 02, 12:55pm H/O coronary artery bypass surgery [facility] 2024 12:55pm Family History No Family History Records Found Relationship Condition Age at Onset Recorded Date/T nevin father Coronary artery disease Unknown Myocardial infarction Unknown brother Coronary artery disease Unknown mother Malignant neoplasm Unknown Advance Directives No Advanced Directives Records Found Advance Directive Response Recorded Date/ Time Advance Directives No July 10:54am Living Will No August 04, 021 10:54am Power of Clinical Services Manager No August 04, 2020 10:54am Advance Directive Response Recorded Date/ Time Do you have a Healthcare Power of Clinical Services Manager? No October 18, 2024 11:33am Advance Directives No July 10:54am Advance Directive Response Recorded Date/ Time Do you have a Healthcare Power of Clinical Services Manager? No November 17, 2024 3:20pm Do you have a Healthcare Power of Clinical Services Manager? No October 18, 2024 11:33am Do you have a Healthcare Power of Clinical Services Manager? No November 12, 2024 3:22pm Advance Directives No July 10:54am Advance Directive Response Recorded Date/ Time Do you have a Healthcare Pow er of Clinical Services Manager? No November 17, 2024 3:20pm Do you have a Healthcare Pow er of Clinical Services Manager? No October 18, 2024 11:33am Do you have a Healthcare Pow er of Clinical Services Manager? No November 12, 2024 3:22pm Do you have a Healthcare Pow er of Clinical Services Manager? Yes November 23, 2024 11:32am Name of Medical Power of Clinical Services Manager Sherri Reis, daughter November 23, 2024 11:32am Advance Directives No July 10:54am Advance Directive Response Recorded Date/ Time Do you have a Healthcare Pow er of Clinical Services Manager? No November 17, 2024 3:20pm Do you have a Healthcare Pow er of Clinical Services Manager? No November 12, 2024 3:22pm Do you have a Healthcare Pow er of Clinical Services Manager? Yes November 23, 2024 11:32am Name of Medical Power of Clinical Services Manager Sherri Reis, daughter November 23, 2024 11:32am Advance Directives No July 10:54am Summary Purpose [...] drug abuse [facility] the event this information is protected by the Federal Confidentiality of Alcohol and Drug Abuse Patient Records regulations: The Federal rules restrict any use of the information to criminally investigate or prosecute any alcohol or drug abuse patient.[facility] the event this information is protected by the Federal Confidentiality of Alcohol and Drug Abuse Patient Records regulations: The Federal rules restrict any use of the information to criminally investigate or prosecute any alcohol or drug abuse patient.[facility] the event this information is protected by the Federal Confidentiality of Alcohol and Drug Abuse Patient Records regulations: The Federal rules restrict any use of the information to criminally investigate or prosecute any alcohol or drug abuse patient.[facility] the event this information is protected by the Federal Confidentiality of Alcohol and Drug Abuse Patient Records regulations: The Federal rules restrict any use of the information to criminally investigate or prosecute any alcohol or drug abuse patient.[facility] the event this information is protected by the Federal Confidentiality of Alcohol and Drug Abuse Patient Records regulations: The Federal rules restrict any use of the information to criminally investigate or prosecute any alcohol or drug abuse patient.[facility] the event this information is protected by the Federal Confidentiality of Alcohol and Drug Abuse Patient Records regulations: The Federal rules restrict any use of the information to criminally investigate or prosecute any alcohol or drug abuse patient.[facility] Care Teams (unrecognized sec tion and content) Team Status: Active Member Role Status Dates Dr. Shahid Raya MD Primary Care Provider Active Team Status: [...] Status: Active Member Role Status Dates Dr. Crow Dc [...] Status: Active Member Role Status Dates Dr. Crow Dc MD Admit Provider Active Start : November 19, 2024 Dr. Crow Dc MD Referring Provider Active S tart: November 19, 2024 Dr. Crow Dc MD Other Provider Active Start : November 19, 2024 No Primary Care Physician Primary Care Provider Active Start: November 19, 2024 MANDIE Montero Attending Provider Active Star t: November 19, 2024 Team Status: Active Member Role Status Dates Dr. Crow Dc MD Admit Provider Active Start : November 20, 2024 Dr. Crow Dc MD Referring Provider Active S tart: November 20, 2024 Dr. Crow Dc MD Other Provider Active Start : November 20, 2024 No Primary Care Physician Primary Care Provider Active Start: November 20, 2024 MANDIE Montero Attending Provider Active Star t: November 20, 2024 Team Status: Inactive Member Role Status Dates No Primary Care Physician Primary Care Provider Active Start: November 20, 2024 End: December 05, 2024 Dr. Shahid Raya MD Admit Provider Active Star t: November 20, 2024 End: December 05, 2024 Dr. Shahid Raya MD Attending Provider Active Start: November 20, 2024 End: December 05, 2024 Dr. Shahid Raya MD Referring Provider Active Start: November 20, 2024 End: December 05, 2024 MANDIE Montero Other Provider Active Start: 2024 End: December 05, 2024 Team Status: Active Member Role Status Dates No Primary Care Physician Primary Care Provider Active Start: November 24, 2024 Dr. Shahid Raya MD Admit Provider Active Star t: November 24, 2024 Dr. Shahid Raya MD Referring Provider Active Start: November 24, 2024 Dr. Shahid Raya MD Other Provider Active Star t: November 24, 2024 MANDIE Montero Attending Provider Active Star t: November 24, 2024 MANDIE Montero Other Provider Active Start: 2024 Team Status: Inactive Member Role Status Dates No Primary Care Physician Primary Care Provider Active Start: December 01, 2024 End: December 01, 2024 No Primary Care Physician Referring Provider Active Start: December 01, 2024 End: December 01, 2024 MANDIE Montero Attending Provider Active Star t: December 01, 2024 End: December 01, 2024 Team Status: Active Member Role Status Dates No Primary Care Physician Primary Care Provider Active Start: December 07, 2024 Dr. Shahid Raya MD Attending Provider Active Start: December 07, 2024 Dr. Shahid Raya MD Referring Provider Active Start: December 07, 2024 Team Status: Inactive Member Role Status Dates Dr. Shahid Raya MD Primary Care Provider Active Start: December 08, 2024 End: December 08, 2024 Dr. Shahid Raya MD Attending Provider Active Start: December 08, 2024 End: December 08, 2024 Dr. Shahid Raya MD Referring Provider Active Start: December 08, 2024 End: December 08, 2024 Team Status: Active Member Role Status Dates MANDIE Montero Attending Provider Active Star t: December 11, 2024 MANDIE Montero Referring Provider Active Star t: December 11, 2024 Dr. Shahid Raya MD Primary Care Provider Active Start: December 11, 2024 Team Status: Active Member Role Status Dates Dr. Shahid Raya MD Primary Care Provider Active Start: December 11, 2024 Dr. Crow Dc MD Attending Provider Active S tart: December 11, 2024 Team Status: Active Member Role Status Dates No Primary Care Physician Primary Care Provider Active Team Status: Active [...] Provider, Referrin g Provider Active Hira Newman HAND BRAILLE TRANSCRIBER, HAND BRAILLE TRANSCRIBER-C Attending Provider Active Team Status: Inactive Member Role Status Dates Dr. Jolanta Grant MD Primary Care Provider Active Hira Newman HAND BRAILLE TRANSCRIBER, HAND BRAILLE TRANSCRIBER-C Attending Provider, Referring Pro vider Active Team Status: Inactive Member Role Status Dates Dr. Jolanta Grant MD Primary Care Provider Active Dr. Keith Jaime MD Attending Provider, Referring Provider Active Inverform Machine Operator Relationship Specialty Start Date End Date Jolanta Grant MD [address] [place] [address] PCP - General Family Medicine 10/17/22 Inverform Machine Operator Relationship Specialty Start Date End Date Jolanta Grant MD [address] [place] [address] PCP - General Family Medicine 10/17/22 Inverform Machine Operator Relationship Specialty Start Date End Date Jolanta Grant MD [address] [place] [address] PCP - General Family Medicine 10/17/22 Inverform Machine Operator Relationship Specialty Start Date End Date Jolanta Grant MD [address] [place] [address] PCP - General Family Medicine 10/17/22 Inverform Machine Operator Relationship Specialty Start Date End Date Jolanta Grant MD [address] [place] [address] PCP - General Family Medicine 10/20/24 Inverform Machine Operator Relationship Specialty Start Date End Date Jolanta Grant MD [address] [place] [address] PCP - General Family Medicine 10/20/24 Team Status: Active Member [...] Physician Primary Care Provider Active Start: November 20, 2024 Dr. Shahid Raya MD Admit Provider Active Star t: November 20, 2024 Dr. Shahid Raya MD Attending Provider Active Start: November 20, 2024 Dr. Shahid Raya MD Referring Provider Active Start: November 20, 2024 MANDIE Montero Other Provider Active Start: 2024 Team Status: Inactive Member Role Status Dates MANDIE Montero Attending Provider Active Star t: December 11, 2024 End: December 11, 2024 MANDIE Montero Referring Provider Active Star t: December 11, 2024 End: December 11, 2024 Dr. Shahid Raya MD Primary Care Provider Active Start: December 11, 2024 End: December 11, 2024 Team Status: Active Member Role Status Dates Dr. Shahid Raya MD Primary Care Provider Active Start: December 15, 2024 Dr. Shahid Raya MD Attending Provider Active Start: December 15, 2024 Dr. Shahid Raya MD Referring Provider Active Start: December 15, 2024 Team Status: Active Member Role Status Dates No Primary Care Physician Primary Care Provider Active Start: December 16, 2024 Dr. Shahid Raya MD Attending Provider Active Start: December 16, 2024 Dr. Shahid Raya MD Referring Provider Active Start: December 16, 2024 Team Status: Active Member Role/Relationship Status Dates Dr. Shahid Raya MD Primary Care Provider Active Team Status: Inactive Member Role/Relationship Status Dates Dr. Jolanta Grant MD Primary Care Provider Active Start: October 18, 2024 End: October 18, 2024 Dr. Dina Camp DO Attending Provider Active Start: October 18, 2024 End: October 18, 2024 Dr. Dina Camp DO Emergency Provider Active Start: October 18, 2024 End: October 18, 2024 Team Status: Inactive Member Role/Relationship Status Dates Dr. Jolanta Grant MD Primary Care Provider Active Start: October 22, 2024 End: October 22, 2024 Dr. Jolanta Grant MD Referring Provider Active Start: October 22, 2024 End: October 22, 2024 Dr. Crow Dc MD Attending Provider Active S tart: October 22, 2024 End: October 22, 2024 Team Status: Inactive Member Role/Relationship Status Dates Dr. Jolanta Grant MD Primary Care Provider Active Start: November 04, 2024 End: November 04, 2024 Dr. Crow Dc MD Attending Provider Active S tart: November 04, 2024 End: November 04, 2024 Dr. Crow Dc MD Referring Provider Active S tart: November 04, 2024 End: November 04, 2024 Team Status: Active Member Role/Relationship Status Dates Dr. Jolanta Grant MD Primary Care Provider Active Start: November 04, 2024 Dr. Crow Dc MD Attending Provider Active S tart: November 04, 2024 Dr. Crow Dc MD Referring Provider Active S tart: November 04, 2024 Team Status: Active Member Role/Relationship Status Dates Dr. Jolanta Grant MD Primary Care Provider Active Start: November 04, 2024 End: November 04, 2024 Dr. Akin Carbajal MD Attending Provider Active Start: November 04, 2024 End: November 04, 2024 Dr. Crow Dc MD Referring Provider Active S tart: November 04, 2024 End: November 04, 2024 Team Status: Inactive Member Role/Relationship Status Dates Dr. Jolanta Grant MD Primary Care Provider Active Start: November 12, 2024 End: November 12, 2024 Dr. Darryl Quinones DO Attending Provider Active Start: November 12, 2024 End: November 12, 2024 Dr. Darryl Quinones DO Emergency Provider Active Start: November 12, 2024 End: November 12, 2024 Team Status: Active Member Role/Relationship Status Dates Dr. Jolanta Grant MD Primary [...] November 17, 2024 Team Status: Inactive Member Role/Relationship Status Dates Dr. Crow Dc MD Admit [...] November 20, 2024 Team Status: Active Member Role/Relationship Status Dates Dr. Crow Dc MD Admit [...] November 18, 2024 Team Status: Active Member Role/Relationship Status Dates Dr. Crow Dc MD Admit Provider Active Start : November 19, 2024 Dr. Crow Dc MD Referring Provider Active S tart: November 19, 2024 Dr. Crow Dc MD Other Provider Active Start : November 19, 2024 No Primary Care Physician Primary Care Provider Active Start: November 19, 2024 MANDIE Montero Attending Provider Active Star t: November 19, 2024 Team Status: Active Member Role/Relationship Status Dates Dr. Crow Dc MD Admit Provider Active Start : November 20, 2024 Dr. Crow Dc MD Referring Provider Active S tart: November 20, 2024 Dr. Crow Dc MD Other Provider Active Start : November 20, 2024 No Primary Care Physician Primary Care Provider Active Start: November 20, 2024 MANDIE Montero Attending Provider Active Star t: November 20, 2024 Team Status: Inactive Member Role/Relationship Status Dates No Primary Care Physician Primary Care Provider Active Start: November 20, 2024 End: December 05, 2024 Dr. Shahid Raya MD Admit Provider Active Star t: November 20, 2024 End: December 05, 2024 Dr. Shahid Raya MD Attending Provider Active Start: November 20, 2024 End: December 05, 2024 Dr. Shahid Raya MD Referring Provider Active Start: November 20, 2024 End: December 05, 2024 MANDIE Montero Other Provider Active Start: 2024 End: December 05, 2024 Team Status: Active Member Role/Relationship Status Dates No Primary Care Physician Primary Care Provider Active Start: November 24, 2024 Dr. Shahid Raya MD Admit Provider Active Star t: November 24, 2024 Dr. Shahid Raya MD Referring Provider Active Start: November 24, 2024 Dr. Shahid Raya MD Other Provider Active Star t: November 24, 2024 MANDIE Montero Attending Provider Active Star t: November 24, 2024 MANDIE Montero Other Provider Active Start: 2024 Team Status: Inactive Member Role/Relationship Status Dates No Primary Care Physician Primary Care Provider Active Start: December 01, 2024 End: December 01, 2024 No Primary Care Physician Referring Provider Active Start: December 01, 2024 End: December 01, 2024 MANDIE Montero Attending Provider Active Star t: December 01, 2024 End: December 01, 2024 Team Status: Inactive Member Role/Relationship Status Dates Dr. Shahid Raya MD Primary Care Provider Active Start: December 08, 2024 End: December 08, 2024 Dr. Shahid Raya MD Attending Provider Active Start: December 08, 2024 End: December 08, 2024 Dr. Shahid Raya MD Referring Provider Active Start: December 08, 2024 End: December 08, 2024 Team Status: Inactive Member Role/Relationship Status Dates MANDIE Montero Attending Provider Active Star t: December 11, 2024 End: December 11, 2024 MANDIE Montero Referring Provider Active Star t: December 11, 2024 End: December 11, 2024 Dr. Shahid Raya MD Primary Care Provider Active Start: December 11, 2024 End: December 11, 2024 Team Status: Active Member Role/Relationship Status Dates Dr. Shahid Raya MD Primary Care Provider Active Start: December 11, 2024 Dr. Crow Dc MD Attending Provider Active S tart: December 11, 2024 Team Status: Inactive Member Role/Relationship Status Dates Dr. Shahid Raya MD Primary Care Provider Active Start: December 15, 2024 End: December 15, 2024 Dr. Shahid Raya MD Attending Provider Active Start: December 15, 2024 End: December 15, 2024 Dr. Shahid Raya MD Referring Provider Active Start: December 15, 2024 End: December 15, 2024 Team Status: Active Member Role/Relationship Status Dates No Primary Care Physician Primary Care Provider Active Start: December 18, 2024 Dr. Shahid Raya MD Attending Provider Active Start: December 18, 2024 Dr. Shahid Raya MD Referring Provider Active Start: December 18, 2024 Team Status: Active Member Role/Relationship Status Dates Dr. Shahid Raya MD Primary Care Provider Active Start: December 11, 2024 Dr. Crow Dc MD Attending Provider Active S tart: December 11, 2024 MANDIE Montero Referring Provider Active Star t: December 11, 2024 Team Status: Active Member Role/Relationship Status Dates No Primary Care Physician Primary Care Provider Active Start: December 29, 2024 Dr. Shahid Raya MD Attending Provider Active Start: December 29, 2024 Dr. Shahid Raya MD Referring Provider Active Start: December 29, 2024 Team Status: Inactive Member Role/Relationship Status Dates Dr. Shahid Raya MD Primary Care Provider Active Start: December 30, 2024 End: December 30, 2024 Dr. Shahid Raya MD Referring Provider Active Start: December 30, 2024 End: December 30, 2024 MANDIE Montero Attending Provider Active Star t: December 30, 2024 End: December 30, 2024 Team Status: Active Member Role/Relationship Status Dates Dr. Jolanta Grant MD Referring Provider Active Start: December 31, 2024 Loree Marsh Attending Provider Active Start: 2024 Dr. Shahid Raya MD Primary Care Provider Active Start: December 31, 2024 Team Status: Inactive Member Role/Relationship Status Dates Dr. Jolanta Grant MD Referring Provider Active Start: December 31, 2024 End: December 31, 2024 Nancy Elizondo HAND BRAILLE TRANSCRIBER, HAND BRAILLE TRANSCRIBER-C Attending Provider Active Start: December 31, 2024 End: December 31, 2024 Dr. Shahid Raya MD Primary Care Provider Active Start: December 31, 2024 End: December 31, 2024 Team Status: Inactive Member Role/Relationship Status Dates Dr. Jolanta Grant MD Referring Provider Active Start: December 31, 2024 End: December 31, 2024 Loree Marsh Attending Provider Active Start: 2024 End: December 31, 2024 Dr. Shahid Raya MD Primary Care Provider Active Start: December 31, 2024 End: December 31, 2024 Team Status: Active Member Role/Relationship Status Dates Dr. Shahid Raya MD Primary Care Provider Active Start: December 31, 2024 Nancy Elizondo HAND BRAILLE TRANSCRIBER, HAND BRAILLE TRANSCRIBER-C Attending Provider Active Start: December 31, 2024 Nancy Elizondo HAND BRAILLE TRANSCRIBER, HAND BRAILLE TRANSCRIBER-C Referring Provider Active Start: December 31, 2024 Team Status: Inactive Member Role/Relationship Status Dates Dr. Shahid Raya MD Primary Care Provider Active Start: December 30, 2024 End: December 30, 2024 Dr. Shahid Raya MD Referring Provider Active Start: December 30, 2024 End: December 30, 2024 MANDIE Montero Attending Provider Active Star t: December 30, 2024 End: December 30, 2024 Team Status: Inactive Member Role/Relationship Status Dates Dr. Jolanta Grant MD Referring Provider Active Start: December 31, 2024 End: December 31, 2024 Loree Marsh Attending Provider Active Start: 2024 End: December 31, 2024 Dr. Shahid Raya MD Primary Care Provider Active Start: December 31, 2024 End: December 31, 2024 Team Status: Inactive Member Role/Relationship Status Dates Dr. Jolanta Grant MD Referring Provider Active Start: December 31, 2024 End: December 31, 2024 Nancy Elizondo HAND BRAILLE TRANSCRIBER, HAND BRAILLE TRANSCRIBER-C Attending Provider Active Start: December 31, 2024 End: December 31, 2024 Dr. Shahid Raya MD Primary Care Provider Active Start: December 31, 2024 End: December 31, 2024 Team Status: Inactive Member Role/Relationship Status Dates Dr. Shahid Raya MD Primary Care Provider Active Start: December 31, 2024 End: December 31, 2024 Dr. Yuniel Tsai MD Attending Provider Active S tart: December 31, 2024 End: December 31, 2024 Team Status: Active Member Role/Relationship Status Dates No Primary Care Physician Primary Care Provider Active Start: January 05, 2025 Dr. Shahid Raya MD Attending Provider Active Start: January 05, 2025 Dr. Shahid Raya MD Referring Provider Active Start: January 05, 2025 Team Status: Inactive Member Role/Relationship Status Dates Dr. Shahid Raya MD Primary Care Provider Active Start: December 31, 2024 End: December 31, 2024 Nancy Elizondo HAND BRAILLE TRANSCRIBER, HAND BRAILLE TRANSCRIBER-C Attending Provider Active Start: December 31, 2024 End: December 31, 2024 Nancy Elizondo HAND BRAILLE TRANSCRIBER, HAND BRAILLE TRANSCRIBER-C Referring Provider Active Start: December 31, 2024 End: December 31, 2024 Team Status: Inactive Member Role/Relationship Status Dates Dr. Shahid Raya MD Primary Care Provider Active Start: January 07, 2025 End: January 07, 2025 Dr. Shahid Raya MD Referring Provider Active Start: January 07, 2025 End: January 07, 2025 Yuniel VANN MD Attending Provider Active St art: January 07, 2025 End: January 07, 2025 Team Status: Inactive Member Role/Relationship Status Dates Dr. Jolanta Grant MD Referring Provider Active Start: December 31, 2024 End: December 31, 2024 Dr. Shahid Raya MD Primary Care Provider Active Start: December 31, 2024 End: December 31, 2024 Dr. Yuniel Tsai MD Attending Provider Active S tart: December 31, 2024 End: December 31, 2024 Team Status: Inactive Member Role/Relationship Status Dates Dr. Shahid Raya MD Primary Care Provider Active Start: January 07, 2025 End: January 07, 2025 Dr. Shahid Raya MD Referring Provider Active Start: January 07, 2025 End: January 07, 2025 Yuniel VANN MD Attending Provider Active St art: January 07, 2025 End: January 07, 2025 Team Status: Inactive Member Role/Relationship Status Dates No Primary Care Physician Primary Care Provider Active Start: January 07, 2025 End: January 07, 2025 Dr. Shahid Raya MD Attending Provider Active Start: January 07, 2025 End: January 07, 2025 Dr. Shahid Raya MD Referring Provider Active Start: January 07, 2025 End: January 07, 2025 Team Status: Inactive Member Role/Relationship Status Dates Dr. Shahid Raya MD Primary Care Provider Active Start: January 21, 2025 End: January 21, 2025 MANDIE Montero Attending Provider Active Star t: January 21, 2025 End: January 21, 2025 MANDIE Montero Referring Provider Active Star t: January 21, 2025 End: January 21, 2025 Team Status: Inactive Member Role/Relationship Status Dates Dr. Shahid Raya MD Primary Care Provider Active Start: February 09, 2025 End: February 09, 2025 Laura LOCKWOOD PA-C Attending Provider Active S tart: February 09, 2025 End: February 09, 2025 Laura LOCKWOOD PA-C Referring Provider Active S tart: February 09, 2025 End: February 09, 2025 Team Status: Inactive Member Role/Relationship Status Dates Dr. Jolanta Grant MD Primary Care Provider Active Start: November 04, 2024 End: November 04, 2024 Dr. Crow Dc MD Attending Provider Active S tart: November 04, 2024 End: November 04, 2024 Dr. Crow Dc MD Referring Provider Active S tart: November 04, 2024 End: November 04, 2024 Team Status: Active Member Role/Relationship Status Dates Dr. Jolanta Grant MD Primary Care Provider Active Start: November 04, 2024 Dr. Crow Dc MD Attending Provider Active S tart: November 04, 2024 Dr. Crow Dc MD Referring Provider Active S tart: November 04, 2024 Team Status: Active Member Role/Relationship Status Dates Dr. Jolanta Grant MD Primary Care Provider Active Start: November 04, 2024 End: November 04, 2024 Dr. Akin Carbajal MD Attending Provider Active Start: November 04, 2024 End: November 04, 2024 Dr. Crow Dc MD Referring Provider Active S tart: November 04, 2024 End: November 04, 2024 Team Status: Inactive Member Role/Relationship Status Dates Dr. Jolanta Grant MD Primary Care Provider Active Start: November 12, 2024 End: November 12, 2024 Dr. Darryl Quinones DO Attending Provider Active Start: November 12, 2024 End: November 12, 2024 Dr. Darryl Quinones DO Emergency Provider Active Start: November 12, 2024 End: November 12, 2024 Team Status: Active Member Role/Relationship Status Dates Dr. Jolanta Grant MD Primary [...] November 17, 2024 Team Status: Inactive Member Role/Relationship Status Dates Dr. Crow Dc MD Admit [...] November 20, 2024 Team Status: Active Member Role/Relationship Status Dates Dr. Crow Dc MD Admit [...] November 18, 2024 Team Status: Active Member Role/Relationship Status Dates Dr. Crow Dc MD Admit Provider Active Start : November 19, 2024 Dr. Crow Dc MD Referring Provider Active S tart: November 19, 2024 Dr. Crow Dc MD Other Provider Active Start : November 19, 2024 No Primary Care Physician Primary Care Provider Active Start: November 19, 2024 MANDIE Montero Attending Provider Active Star t: November 19, 2024 Team Status: Active Member Role/Relationship Status Dates Dr. Crow Dc MD Admit Provider Active Start : November 20, 2024 Dr. Crow Dc MD Referring Provider Active S tart: November 20, 2024 Dr. Crow Dc MD Other Provider Active Start : November 20, 2024 No Primary Care Physician Primary Care Provider Active Start: November 20, 2024 MANDIE Montero Attending Provider Active Star t: November 20, 2024 Team Status: Inactive Member Role/Relationship Status Dates No Primary Care Physician Primary Care Provider Active Start: November 20, 2024 End: December 05, 2024 Dr. Shahid Raya MD Admit Provider Active Star t: November 20, 2024 End: December 05, 2024 Dr. Shahid Raya MD Attending Provider Active Start: November 20, 2024 End: December 05, 2024 Dr. Shahid Raya MD Referring Provider Active Start: November 20, 2024 End: December 05, 2024 MANDIE Montero Other Provider Active Start: 2024 End: December 05, 2024 Team Status: Active Member Role/Relationship Status Dates No Primary Care Physician Primary Care Provider Active Start: November 24, 2024 Dr. Shahid Raya MD Admit Provider Active Star t: November 24, 2024 Dr. Shahid Raya MD Referring Provider Active Start: November 24, 2024 Dr. Shahid Raya MD Other Provider Active Star t: November 24, 2024 MANDIE Montero Attending Provider Active Star t: November 24, 2024 MANDIE Montero Other Provider Active Start: 2024 Team Status: Inactive Member Role/Relationship Status Dates No Primary Care Physician Primary Care Provider Active Start: December 01, 2024 End: December 01, 2024 No Primary Care Physician Referring Provider Active Start: December 01, 2024 End: December 01, 2024 MANDIE Montero Attending Provider Active Star t: December 01, 2024 End: December 01, 2024 Team Status: Inactive Member Role/Relationship Status Dates Dr. Shahid Raya MD Primary Care Provider Active Start: December 08, 2024 End: December 08, 2024 Dr. Shahid Raya MD Attending Provider Active Start: December 08, 2024 End: December 08, 2024 Dr. Shahid Raya MD Referring Provider Active Start: December 08, 2024 End: December 08, 2024 Team Status: Inactive Member Role/Relationship Status Dates MANDIE Montero Attending Provider Active Star t: December 11, 2024 End: December 11, 2024 MANDIE Montero Referring Provider Active Star t: December 11, 2024 End: December 11, 2024 Dr. Shahid Raya MD Primary Care Provider Active Start: December 11, 2024 End: December 11, 2024 Team Status: Active Member Role/Relationship Status Dates Dr. Shahid Raya MD Primary Care Provider Active Start: December 11, 2024 Dr. Crow Dc MD Attending Provider Active S tart: December 11, 2024 MANDIE Montero Referring Provider Active Star t: December 11, 2024 Team Status: Inactive Member Role/Relationship Status Dates Dr. Shahid Raya MD Primary Care Provider Active Start: December 15, 2024 End: December 15, 2024 Dr. Shahid Raya MD Attending Provider Active Start: December 15, 2024 End: December 15, 2024 Dr. Shahid Raya MD Referring Provider Active Start: December 15, 2024 End: December 15, 2024 Team Status: Inactive Member Role/Relationship Status Dates Dr. Shahid Raya MD Primary Care Provider Active Start: December 30, 2024 End: December 30, 2024 Dr. Shahid Raya MD Referring Provider Active Start: December 30, 2024 End: December 30, 2024 MANDIE Montero Attending Provider Active Star t: December 30, 2024 End: December 30, 2024 Team Status: Inactive Member Role/Relationship Status Dates Dr. Jolanta Grant MD Referring Provider Active Start: December 31, 2024 End: December 31, 2024 Dr. Shahid Raya MD Primary Care Provider Active Start: December 31, 2024 End: December 31, 2024 Dr. Yuniel Tsai MD Attending Provider Active S tart: December 31, 2024 End: December 31, 2024 Team Status: Inactive Member Role/Relationship Status Dates Dr. Jolanta Grant MD Referring Provider Active Start: December 31, 2024 End: December 31, 2024 Nancy Elizondo HAND BRAILLE TRANSCRIBER, HAND BRAILLE TRANSCRIBER-C Attending Provider Active Start: December 31, 2024 End: December 31, 2024 Dr. Shahid Raya MD Primary Care Provider Active Start: December 31, 2024 End: December 31, 2024 Team Status: Inactive Member Role/Relationship Status Dates Dr. Shahid Raya MD Primary Care Provider Active Start: December 31, 2024 End: December 31, 2024 Dr. Yuniel Tsai MD Attending Provider Active S tart: December 31, 2024 End: December 31, 2024 Team Status: Inactive Member Role/Relationship Status Dates Dr. Shahid Raya MD Primary Care Provider Active Start: December 31, 2024 End: December 31, 2024 Nancy Elizondo HAND BRAILLE TRANSCRIBER, HAND BRAILLE TRANSCRIBER-C Attending Provider Active Start: December 31, 2024 End: December 31, 2024 Nancy Elizondo HAND BRAILLE TRANSCRIBER, HAND BRAILLE TRANSCRIBER-C Referring Provider Active Start: December 31, 2024 End: December 31, 2024 Team Status: Inactive Member Role/Relationship Status Dates Dr. Shahid Raya MD Primary Care Provider Active Start: January 07, 2025 End: January 07, 2025 Dr. Shahid Raya MD Referring Provider Active Start: January 07, 2025 End: January 07, 2025 Yuniel VANN MD Attending Provider Active St art: January 07, 2025 End: January 07, 2025 Team Status: Inactive Member Role/Relationship Status Dates No Primary Care Physician Primary Care Provider Active Start: January 07, 2025 End: January 07, 2025 Dr. Shahid Raya MD Attending Provider Active Start: January 07, 2025 End: January 07, 2025 Dr. Shahid Raya MD Referring Provider Active Start: January 07, 2025 End: January 07, 2025 Team Status: Inactive Member Role/Relationship Status Dates Dr. Shahid Raya MD Primary Care Provider Active Start: January 21, 2025 End: January 21, 2025 MANDIE Montero Attending Provider Active Star t: January 21, 2025 End: January 21, 2025 MANDIE Montero Referring Provider Active Star t: January 21, 2025 End: January 21, 2025 Team Status: Inactive Member Role/Relationship Status Dates Dr. Shahid Raya MD Primary Care Provider Active Start: February 09, 2025 End: February 09, 2025 Laura LOCKWOOD PA-C Attending Provider Active S tart: February 09, 2025 End: February 09, 2025 Laura LOCKWOOD PA-C Referring Provider Active S tart: February 09, 2025 End: February 09, 2025 Team Status: Inactive Member Role/Relationship Status Dates Dr. Shahid Raya MD Primary Care Provider Active Start: March 02, 2025 End: March 02, 2025 Dr. Shahid Raya MD Referring Provider Active Start: March 02, 2025 End: March 02, 2025 Nancy Elizondo HAND BRAILLE TRANSCRIBER, HAND BRAILLE TRANSCRIBER-C Attending Provider Active Start: March 02, 2025 End: March 02, 2025 Reason for Visit (unrecogniz ed section and content) Reason Comments Due for annual wellness visit Reason Onset Date Comments ACM JOVITA RN 10/20/2024 Chart review per payor request. Reason Comments Appointment INFORMATION SOURCE (unrecogn ized section and content) DATE CREATED AUTHOR 10/21/2024 [facility] DATE CREATED AUTHOR AUTHOR'S ORGANIZ ATION 11/20/2024 [facility] DATE CREATED AUTHOR AUTHOR'S ORGANIZ ATION 05/06/2025 [facility] FOR RECORDS PERTAINING TO PATIENTS WHO ARE [...] BE BASED ON THE PRIMARY CLINICAL RECORDS. [facility]. provides no warranty or guarantee of the accuracy or completeness of information in this document.
== END | disposition home or self-care (01) ==
LOC: CVS 08:49
PROVIDERS: PCP Family Medicine Geriatric Medicine; Referring Provider Physician Assistant; Visit Provider Physician Assistant
DX: I70.212 Atherosclerosis of native arteries of extremities with intermittent claudication, left leg (principal); Z95.828 Presence of other vascular implants and grafts
CPT/HCPCS: 93922; 93925

== ENCOUNTER → 2025-06-15 | Outpatient (CLI) | payer MEDICARE, SELFPAY ==
[2025-06-15 14:00] LABS: Hematocrit 36.8 % (37-47); Hemoglobin 12.1 g/dL (12.0-15.0); Immature Granulocytes Count 0.050 X10^3/uL (0.0-0.0); Mean Corp Hgb Conc 32.9 g/dL (32-36); Mean Corpuscular Volume 92.0 fL (81-99); Mean Platelet Vol. 10.0 fl (6.2-12.0); NRBC Flagged by Analyzer 0 % (0-5); Platelet Count 335 K/mm3 (150-450); RBC Distribution Width CV 14.2 % (11.6-14.6); RBC Distribution Width SD 46.7 fl (35.1-43.9); Red Blood Count 4.00 M/mm3 (4.2-5.4); White Blood Count 9.8 K/mm3 (4.4-11.0)
[2025-06-15 15:52] LABS: AST(SGOT) 24 U/L (<=31); Alanine Aminotransfer ALT/SGPT 14 U/L (<=34); Albumin, Serum 4.4 g/dL (3.4-4.8); Alkaline Phosphatase 109 U/L (35-104); Anion Gap 15 (7-18); BUN 13 mg/dL (4-19); BUN/Creat Ratio 12.0 RATIO (10-20); Calcium,Total 9.5 mg/dL (7.6-11.0); Carbon Dioxide 23.0 mmol/L (20.0-29.0); Chloride 104 mmol/L (96-106); Cholesterol 191 mg/dL (<=200); Globulin 3.0 g/dL (2.2-4.2); Glucose 133 mg/dL (70-99); Low Density Lipoprotein Calc. 116 mg/dL; Potassium 4.0 mmol/L (3.5-5.1); Triglycerides 200 mg/dL; Very Low Density Lipoprotein 40 mg/dL (5-40); Vitamin D,25 Hydroxy 31.2 ng/mL (30-100); cholesterol:hdl ratio screen 4.80
[2025-06-15 21:43] LABS: Xtra Tube Kwok EXTRA TUBE
== END | disposition home or self-care (01) ==
LOC: POLAB3 13:40
PROVIDERS: PCP Family Medicine Geriatric Medicine; Visit Provider Family Medicine Geriatric Medicine
DX: E55.9 Vitamin D deficiency, unspecified (principal); E78.5 Hyperlipidemia, unspecified; I10 Essential (primary) hypertension
CPT/HCPCS: 36415; 80053; 80061; 82306; 84443; 85025